=== PATIENT | female | born 1945 | race African-American/Black ===

== ENCOUNTER 2016-08-22 11:32 | Emergency (ER) | payer MEDICARE, MEDICAID ==
--- NOTE | 2016-08-22 11:41 | ER Document Report ---
ED Medical Screen (RME) - General Stated Complaint: EYE REDNESS Notes: presents by EMS for c/o right eye pain that started thursday. denies problems with vision, feels like something is it. Reports sensitive to light, no pain on palpation TRAVEL OUTSIDE OF THE [place] IN LAST 30 DAYS: No - Related Data Allergies/Adverse Reactions: aspirin [Aspirin] Allergy (Verified 06/19/15 16:20) Edema morphine [Morphine] Adverse Reaction (Verified 06/19/15 16:20) Facial swelling Past Medical History - Past Medical History Cardiac Medical History: Reports: Hx Atrial Fibrillation, Hx Heart Attack, Hx Hypercholesterolemia, Hx Hypertension Denies: Hx Congestive Heart Failure Pulmonary Medical History: Reports: Hx Asthma Denies: Hx Bronchitis, Hx COPD, Hx Pneumonia, Hx Tuberculosis Neurological Medical History: Denies: Hx Seizures Endocrine Medical History: Reports: Hx Diabetes Mellitus Type 2, Hx Hypothyroidism. Denies: Hx Diabetes Mellitus Type 1 GI Medical History: Reports: Hx Gastroesophageal Reflux Disease, Hx Ulcer. Denies: Hx Hiatal Hernia Psychiatric Medical History: Reports: Hx Depression Past Surgical History: Reports: Hx Cholecystectomy, Hx Hysterectomy, Hx Orthopedic Surgery. Denies: Hx Pacemaker - Immunizations Immunizations up to date: Yes Hx Diphtheria, Pertussis, Tetanus Vaccination: No
[2016-08-22] MEDS ORDERED: TETRACAINE HCL 0.5% OPH SOLN 2 ML OD ONE (11:42)
--- NOTE | 2016-08-22 13:33 | ER Document Report ---
[id number] EYE REDNESS Notes: The patient is a 71-year-old female, past medical history hypertension, diabetes , presents with 3 days of right eye redness and mild pain. She feels like there is something in her eye. She denies blurry vision, scratching of her eye , trauma, headache or discharge. TRAVEL OUTSIDE OF THE [place] IN LAST 30 DAYS: No - Related Data Allergies/Adverse Reactions: aspirin [Aspirin] Allergy (Verified 08/22/16 11:42) Edema morphine [Morphine] Adverse Reaction (Verified 08/22/16 11:42) Facial swelling Past Medical History - General Information source: Patient - Social History Smoking Status: Never Smoker Chew tobacco use (# tins/day): No Frequency of alcohol use: None Drug Abuse: None Family History: Reviewed & Not Pertinent Patient has suicidal ideation: No Patient has homicidal ideation: No - Past Medical History Cardiac Medical History: Reports: Hx Atrial Fibrillation, Hx Heart Attack, Hx Hypercholesterolemia, Hx Hypertension Denies: Hx Congestive Heart Failure Pulmonary Medical History: Reports: Hx Asthma Denies: Hx Bronchitis, Hx COPD, Hx Pneumonia, Hx Tuberculosis Neurological Medical History: Denies: Hx Seizures Endocrine Medical History: Reports: Hx Diabetes Mellitus Type 2, Hx Hypothyroidism. Denies: Hx Diabetes Mellitus Type 1 Renal/ Medical History: Denies: Hx Peritoneal Dialysis GI Medical History: Reports: Hx Gastroesophageal Reflux Disease, Hx Ulcer. Denies: Hx Hiatal Hernia Psychiatric Medical History: Reports: Hx Depression Past Surgical History: Reports: Hx Cholecystectomy, Hx Hysterectomy, Hx Orthopedic Surgery. Denies: Hx Pacemaker - Immunizations Immunizations up to date: Yes Hx Diphtheria, Pertussis, Tetanus Vaccination: No Hx Pneumococcal Vaccination: 03/11/12 Review of Systems - Review of Systems Notes: REVIEW OF SYSTEMS: CONSTITUTIONAL: -fevers, -chills EENT: +right eye redness, +eye pain, -difficulty swallowing, -nasal congestion CARDIOVASCULAR:-chest pain, -syncope. RESPIRATORY: -cough, -SOB GASTROINTESTINAL: -abdominal pain, - nausea, -vomiting, -diarrhea GENITOURINARY: -dysuria, -hematuria MUSCULOSKELETAL: -back pain, -neck pain SKIN: -rash or skin lesions. HEMATOLOGIC: -easy bruising or bleeding. LYMPHATIC: -swollen, enlarged glands. NEUROLOGICAL: -altered mental status or loss of consciousness, -headache, - neurologic symptoms PSYCHIATRIC: -anxiety, -depression. ALL OTHER SYSTEMS REVIEWED AND NEGATIVE. Physical Exam - Vital signs Vitals: Temp Pulse Resp BP Pulse Ox 98.1 F 82 18 169/81 H 98 08/22/16 11:45 08/22/16 11:45 08/22/16 11:45 08/22/16 11:45 08/22/16 11:45 - Notes Notes: PHYSICAL EXAMINATION: GENERAL: Well-appearing, well-nourished and in no acute distress. HEAD: Atraumatic, normocephalic. EYES: Pupils equal round and reactive to light, extraocular movements intact, red conjunctiva on the right, small abrasion at the 3 clock position of the right cornea, no dendrites, right eye pressure is 17, slit lamp exam shows a small abrasion and no foreign objects. ENT: nares patent, oropharynx clear without exudates. Moist mucous membranes. NECK: Normal range of motion, supple without lymphadenopathy LUNGS: Breath sounds clear to auscultation bilaterally and equal. No wheezes rales or rhonchi. HEART: Regular rate and rhythm without murmurs ABDOMEN: Soft, nontender, normoactive bowel sounds. No guarding, no rebound. No masses appreciated. EXTREMITIES: Normal range of motion, no pitting or edema. No cyanosis. NEUROLOGICAL: Cranial nerves grossly intact. Normal speech, normal gait. Normal sensory, motor, and reflex exams. PSYCH: Normal mood, normal affect. SKIN: Warm, Dry, normal turgor, no rashes or lesions noted. Course - Re-evaluation Re-evalutation: No evidence of acute closed angle glaucoma or foreign body in eye. No vision changes. 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 - Vital Signs Vital signs: Temp Pulse Resp BP Pulse Ox 97.3 F 82 16 190/69 H 99 08/22/16 13:42 08/22/16 13:42 08/22/16 13:42 08/22/16 13:42 08/22/16 13:42 Discharge - Discharge Clinical Impression: Conjunctivitis Qualifiers: Conjunctivitis type: acute Acute conjunctivitis type: unspecified Laterality: right Qualified Code(s): H10.31 - Unspecified acute conjunctivitis, right eye Abrasion of right cornea Qualifiers: Encounter type: initial encounter Qualified Code(s): S05.01XA - Injury of conjunctiva and corneal abrasion without foreign body, right eye, initial encounter Condition: Good Disposition: HOME, SELF-CARE Instructions: Antibiotic Therapy ([facility]) Additional Instructions: Corneal Abrasion You have a corneal abrasion, a scratch on the surface of the eye. The pain of a corneal abrasion feels like a sharp particle in the eye. Usually, antibiotics are placed in the eye to prevent infection. Occasionally, medication will be placed in the eye to dilate the pupil. This is done to relieve some of your discomfort and is only temporary. Pain medication may be required. Don't drive or operate machinery until you have the use of both your eyes. The abrasion usually is healed in one or two days. A follow-up examination to confirm healing is recommended. Call the doctor or return at once if you develop severe pain, decreasing vision, eye swelling, or purulent drainage. Conjunctivitis You have an infection in your eye, commonly known as "pink eye." Conjunctivitis causes redness, mild discomfort, itching, and mattering on the eyelids. It is very contagious, so you must be careful to wash your hands after touching your face so you don't pass the infection on to others. Conjunctivitis is caused by both viruses and bacteria. It usually responds quickly to treatment with antibiotic drops. These should be placed in the eye as prescribed (usually every three to four hours while you're awake). If you wear contact lenses, don't put them in your eyes until the infection is cleared and you are no longer using the drops (unless your doctor advises you otherwise). Should you develop increasing eye pain, severe swelling, decreased vision, or fail to improve as expected, please return for re-examination. Prescriptions: Erythromycin Base [E-Mycin 0.5% Oph Ointment 3.5 gm] 1 applic OD QID #1 tube Referrals: OPHTHAMOLOGY [Provider Group] - Follow up as needed
[2016-08-22 13:54] VITALS: BP 190/69
== END 2016-08-22 13:54 | disposition home or self-care (01) ==
LOC: ER 11:32
DX: S05.01XA Injury of conjunctiva and corneal abrasion without foreign body, right eye, initial encounter (principal); X58.XXXA Exposure to other specified factors, initial encounter; H10.31 Unspecified acute conjunctivitis, right eye; Z88.6 Allergy status to analgesic agent; I25.2 Old myocardial infarction; I10 Essential (primary) hypertension; J45.909 Unspecified asthma, uncomplicated; E11.9 Type 2 diabetes mellitus without complications
CPT/HCPCS: 99283

== ENCOUNTER 2016-09-23 16:13 | Day surgery (SDC) | payer MEDICARE, MEDICAID ==
[~2016-09-23 16:13] MED LIST: EPINEPHRINE INJ 1 MG/10 ML DISP.SYRIN ONE; FENTANYL CITRATE INJ/PF 100 MCG/2 ML AMPUL ONE; FLUMAZENIL INJ 0.5 MG/5 ML VIAL IV ONE; GLUCAGON,HUMAN RECOMB 1 MG INJ ONE; MIDAZOLAM 2 MG/2 ML INJ ONE; NALOXONE HCL INJ/PF 0.4 MG/1 ML SDV ONE; PROMETHAZINE HCL INJ 25 MG/1 ML VIAL ONE
--- NOTE | 2016-09-23 17:41 | Operative Report ---
Operative Report DATE OF SURGERY: 09/23/16 Operative Report: Pre-op diagnosis: Melena and anemia Post-op diagnosis: Mild antral gastritis Surgery: Esophagogastroduodenoscopy with biopsy Medications: Versed 2g Fentanyl 100 mcg IV push Tissue removed: Antral biopsy for pathology Procedure: After informed consent obtained from patient, the throat was sprayed with Hurricane and conscious sedation was achieved. The upper endoscope was inserted into the esophagus under direct vision and advanced into the stomach. The duodenum was entered and examined to the second part. Endoscope was then slowly pulled out of the patient as the mucosa was examined into details. Patient tolerated procedure well. Findings Esophagus: Normal Z-line at: Antrum: Mild erythema Body: Normal Fundus: Normal Duodenum first part: Normal Duodenum second part: Normal Plan: Await pathology. Continue Dexilant OPERATION: .
--- NOTE | 2016-09-23 17:42 | PDOC DISCHARGE SUMMARY ---
Discharge Summary (SDC) - Discharge Final Diagnosis: Antral gastritis Date of Surgery: 09/23/16 Condition: Stable Treatment or Instructions: Continue Dexilant Discharge Diet: As Tolerated Discharge Activity: Activity As Tolerated Report the Following to Your Physician Immediately: Redness, Swelling, Warmth, Large Clots
[2016-09-23 20:01] VITALS: BP 169/66
== END 2016-09-23 20:40 | disposition home or self-care (01) ==
LOC: END 16:13
PROVIDERS: ATTEND Internal Medicine Gastroenterology
PROC: 0DB68ZX Excision of Stomach, Via Natural or Artificial Opening Endoscopic, Diagnostic (ICD-10-PCS; principal; 2016-09-23 16:00)
DX: K29.50 Unspecified chronic gastritis without bleeding (principal); D64.9 Anemia, unspecified; E11.9 Type 2 diabetes mellitus without complications; K21.9 Gastro-esophageal reflux disease without esophagitis; K92.1 Melena; Z88.0 Allergy status to penicillin; Z79.899 Other long term (current) drug therapy
CPT/HCPCS: 43239; 82962; 88342 ×2; 88305 ×2; J2250; J3010; J0171; J1610; J2310; J2550; J3490

== ENCOUNTER 2016-09-30 16:21 | Observation (INO) | payer MEDICARE, MEDICAID ==
[2016-09-30 16:58] LABS: ARTERIAL BLOOD BASE EXCESS -1.8 mmol/L; ARTERIAL BLOOD O2 SATURATION 96.5 % (94-98)
[2016-09-30] MEDS ORDERED: IPRATROPIUM/ALBUTEROL 0.5-2.5 MG/3 ML AMPUL NEB PRN (17:15)
[2016-09-30 17:53] LABS: HEMATOCRIT 32.8 % (36.0-47.0); HEMOGLOBIN 10.8 g/dL (12.0-15.5); HGB HCT DIFFERENCE -0.4; MEAN CORPUSCULAR HEMOGLOBIN 30.9 pg (27.0-33.4); MEAN CORPUSCULAR HGB CONC 32.8 g/dL (32.0-36.0); MEAN CORPUSCULAR VOLUME 94 fl (80-97); RED BLOOD COUNT 3.48 10^6/uL (3.72-5.28); RED CELL DISTRIBUTION WIDTH 14.1 % (11.5-14.0); WHITE BLOOD COUNT 7.7 10^3/uL (4.0-10.5)
[2016-09-30] MEDS ORDERED: ENOXAPARIN SODIUM INJ 40 MG/0.4 ML DISP.SYRIN SUBCUT ONE (18:00)
[2016-09-30 18:16] LABS: ALANINE AMINOTRANSFERASE 30 U/L (9-52); ALBUMIN 3.1 g/dL (3.5-5.0); ALKALINE PHOSPHATASE 148 U/L (38-126); ANION GAP 8 (5-19); ASPARTATE AMINO TRANSFERASE 24 U/L (14-36); BILIRUBIN,TOTAL 0.3 mg/dL (0.2-1.3); BLOOD UREA NITROGEN 32 mg/dL (7-20); CALCIUM 8.9 mg/dL (8.4-10.2); CARBON DIOXIDE 28 mmol/L (22-30); CHLORIDE 105 mmol/L (98-107); CREATININE RESULT 1.75 mg/dL (0.52-1.25); GLUCOSE 163 mg/dL (75-110); SODIUM 141.1 mmol/L (137-145); TOTAL PROTEIN 6.6 g/dL (6.3-8.2)
[2016-09-30] MEDS ORDERED: INFLUENZA ADLT QUAD (36MOS+) 2016-17 VAC 0.5 ML SYR IM PRN (19:23)
[2016-09-30] MEDS ORDERED: DEXTROSE 40% GEL 15 GM TUBE PO PRN (19:51)
[2016-09-30] MEDS ORDERED: DEXTROSE 50%-WATER SYRINGE 12.5 GM/25 ML DOSE IV PRN (19:51)
[2016-09-30] MEDS ORDERED: DEXTROSE 40% GEL 15 GM TUBE X 2 PO PRN (19:51)
[2016-09-30] MEDS ORDERED: DEXTROSE 50%-WATER SYRINGE 25 GM/50 ML DOSE IV PRN (19:51)
[2016-09-30] MEDS ORDERED: INSULIN LISPRO 100 UNIT/ML 3 ML VIAL SUBCUT PRN (19:51)
[2016-09-30] MEDS ORDERED: GLUCAGON,HUMAN RECOMB 1 MG INJ IM PRN (19:51)
[2016-09-30] MEDS ORDERED: CHLORPHENIRAMINE MALEATE 4 MG TABLET PO PRN (19:56)
[2016-09-30] MEDS: DULOXETINE HCL 30 MG CAPSULE.DR PO SCH (21:23)
[2016-09-30] MEDS: LISINOPRIL 10 MG TABLET PO SCH (21:23)
[2016-09-30] MEDS: PREGABALIN 75 MG CAPSULE PO SCH (21:23)
[2016-09-30] MEDS: TOPIRAMATE 100 MG TABLET PO SCH (21:24)
[2016-09-30] MEDS ORDERED: INSULIN GLARGINE,HUM.REC.ANLOG 300 UNIT/3 ML INSULN.PEN SUBCUT SCH (22:00)
[2016-09-30] MEDS ORDERED: (PENDING PHARMACY ID) (Lisinopril [Lisinopril] 40 MG) PO SCH (22:00)
[2016-10-01] MEDS ORDERED: ENOXAPARIN SODIUM INJ 40 MG/0.4 ML DISP.SYRIN SUBCUT SCH (08:00)
[2016-10-01] MEDS ORDERED: HYDROCODONE/ACETAMINOPHEN 5-325 MG TABLET PO PRN (08:21)
[2016-10-01] MEDS: DULOXETINE HCL 30 MG CAPSULE.DR PO SCH (09:26)
[2016-10-01] MEDS: LISINOPRIL 10 MG TABLET PO SCH (09:27)
[2016-10-01] MEDS: TOPIRAMATE 100 MG TABLET PO SCH (09:27)
[2016-10-01] MEDS: PREGABALIN 75 MG CAPSULE PO SCH (09:28)
[2016-10-01] MEDS ORDERED: SITAGLIPTIN PHOSPHATE 50 MG TABLET PO SCH (10:00)
[2016-10-01] MEDS ORDERED: (PENDING PHARMACY ID) (Mirabegron [Myrbetriq] 50 MG) PO SCH (10:00)
[2016-10-01] MEDS ORDERED: LANSOPRAZOLE 30 MG TAB.RAP.DR PO SCH (10:00)
[2016-10-01] MEDS ORDERED: METOPROLOL SUCCINATE 50 MG TAB.SR.24H PO SCH (10:00)
[2016-10-01] MEDS ORDERED: LEVOTHYROXINE SODIUM 0.15 MG TABLET PO SCH (10:00)
[2016-10-01] MEDS ORDERED: ATORVASTATIN CALCIUM 20 MG TABLET PO SCH (10:00)
[2016-10-01] MEDS ORDERED: FUROSEMIDE 40 MG TABLET PO SCH (10:00)
[2016-10-01] MEDS ORDERED: (PENDING PHARMACY ID) (Metoprolol Succinate [Toprol Xl 200 Mg Tablet] 200 MG) PO SCH (10:00)
--- NOTE | 2016-10-01 15:43 | PDOC H&P ---
History of Present Illness Admission Date/PCP: 09/30/16 16:21 BRAD GIVENS MD History of Present Illness: ONDINA ENRIQUEZ is a 71 year old female, she has history of severe morbid obesity with a BMI of 55.9, diabetes mellitus type II complicated with chronic kidney disease stage IV, severe neuropathy from diabetes and history of asthma. She came to the office with shortness of breath, audible wheeze, the pulse oximetry revealed 84% oxygen saturation on room air, she had nebulizer treatment and she was admitted into the hospital for observation and management. The chest x-ray that was done was negative for any acute pathology , a 2-D echo was done as well to measure right pulmonary pressures. The BNP was normal this virtually rule out CHF Past Medical History Cardiac Medical History: Reports: Hyperlipidema, Hypertension Pulmonary Medical History: Reports: Asthma Endocrine Medical History: Reports: Diabetes Mellitus Type 2, Hypothyroidism Renal/ Medical History: Reports: Chronic Kidney Disease GI Medical History: Reports: Gastroesophageal Reflux Disease Musculoskeltal Medical History: Reports: Arthritis Psychiatric Medical History: Reports: Depression Hematology: Reports: Anemia Past Surgical History Past Surgical History: Reports: Cholecystectomy, Hysterectomy, Orthopedic Surgery Social History Information Source: Patient Smoking Status: Never Smoker Frequency of Alcohol Use: None Hx Recreational Drug Use: No Hx Prescription Drug Abuse: No Family History Family History: Reviewed & Not Pertinent Parental Family History Reviewed: Yes Children Family History Reviewed: Yes Sibling(s) Family History Reviewed.: Yes Medication/Allergy Home Medications: Rosuvastatin Calcium [Crestor 10 mg Tablet] 10 mg PO DAILY 03/10/12 Esomeprazole Magnesium [Nexium] 40 mg PO DAILY 02/01/14 Lisinopril/Hydrochlorothiazide [Lisinopril-Hctz 10-12.5 mg Tab] 1 each PO Q12H 02/01/14 Pioglitazone HCl 15 mg PO QAM 02/01/14 Azithromycin [Zithromax 250 mg Tablet] 250 mg PO ASDIR PRN #6 tablet 10/08/14 Guaifenesin 100 mg PO TID #100 ml 10/08/14 Sulfamethoxazole/Trimethoprim [Bactrim Ds Tablet] 1 each PO BID #14 tablet 03/08 Nitrofurantoin/Nitrofuran Mac [Macrobid 100 mg Capsule] 100 mg PO BID #20 capsule 11/10/15 Atorvastatin Calcium [Lipitor 20 mg Tablet] 20 mg PO DAILY 09/30/16 Chlorpheniramine Maleate [Allergy] 4 mg PO Q6HP PRN 09/30/16 Dexlansoprazole [Dexilant 60 mg Capsule] 60 mg PO DAILY 09/30/16 Duloxetine HCl [Cymbalta] 60 mg PO Q12 09/30/16 Furosemide [Furosemide] 40 mg PO DAILY 09/30/16 Insulin Glargine,Hum.rec.anlog [Lantus Insulin 100 Unit/mL] 52 units SQ QHS Levothyroxine Sodium [Synthroid 0.15 mg Tablet] 150 mcg PO DAILY 09/30/16 Lisinopril [Lisinopril] 40 mg PO Q12 09/30/16 Metoprolol Succinate [Toprol XL 200 mg Tablet] 200 mg PO DAILY 09/30/16 Mirabegron [Myrbetriq] 50 mg PO DAILY 09/30/16 Pregabalin [Lyrica] 150 mg PO Q12 09/30/16 Sitagliptin Phosphate [Januvia] 100 mg PO DAILY 09/30/16 Topiramate [Topiramate] 100 mg PO Q12 09/30/16 Allergies/Adverse Reactions: aspirin [Aspirin] Allergy (Verified 09/23/16 16:11) Edema, GI UPSET morphine [Morphine] Allergy (Verified 10/01/16 08:32) ANAPHYLAXSIS, Facial swelling Review of Systems Constitutional: PRESENT: fatigue, weakness Eyes: ABSENT: visual disturbances Ears: ABSENT: hearing changes Cardiovascular: ABSENT: chest pain, dyspnea on exertion, edema, orthropnea, palpitations Respiratory: PRESENT: cough, dyspnea Gastrointestinal: ABSENT: abdominal pain, constipation, diarrhea, hematemesis, hematochezia, nausea, vomiting Genitourinary: ABSENT: dysuria, hematuria Musculoskeletal: ABSENT: joint swelling Integumentary: ABSENT: rash, wounds Neurological: ABSENT: abnormal gait, abnormal speech, confusion, dizziness, focal weakness, syncope Psychiatric: ABSENT: anxiety, depression, homidical ideation, suicidal ideation Endocrine: ABSENT: cold intolerance, heat intolerance, menstrual abnormalities, polydipsia, polyuria Hematologic/Lymphatic: ABSENT: easy bleeding, easy bruising, lymphadenopathy Physical Exam Vital Signs: Temp Pulse Resp BP Pulse Ox 97.9 F 56 L 20 144/73 H 98 10/01/16 12:13 10/01/16 14:00 10/01/16 12:13 10/01/16 12:13 10/01/16 12:13 Intake & Output 09/30/16 10/01/16 10/02/16 06:59 06:59 06:59 Intake Total 280 Balance 280 Weight 157 kg General appearance: PRESENT: severe distress Head exam: PRESENT: atraumatic, normocephalic Eye exam: PRESENT: conjunctiva pink, EOMI, PERRLA Ear exam: PRESENT: normal external ear exam Mouth exam: PRESENT: moist, tongue midline Neck exam: PRESENT: full ROM Respiratory exam: PRESENT: wheezes Cardiovascular exam: PRESENT: RRR, +S1, +S2 GI/Abdominal exam: PRESENT: normal bowel sounds, soft Rectal exam: PRESENT: deferred Neurological exam: PRESENT: alert, awake, oriented to person, oriented to place , oriented to time, oriented to situation, CN II-XII grossly intact Psychiatric exam: PRESENT: appropriate affect, normal mood Skin exam: PRESENT: dry, intact, warm Results Laboratory Results: 09/30/16 17:45 09/30/16 17:45 09/30/16 09/30/16 09/30/16 16:45 17:45 17:45 WBC 7.7 RBC 3.48 L Hgb 10.8 L Hct 32.8 L MCV 94 MCH 30.9 MCHC 32.8 RDW 14.1 H Plt Count 170 Carbonic Acid 1.29 HCO3/H2CO3 Ratio 18:1 ABG pH 7.36 ABG pCO2 43.0 ABG pO2 89.5 ABG HCO3 23.7 ABG O2 Saturation 96.5 ABG Base Excess -1.8 FiO2 ROOM AIR Sodium 141.1 Potassium 4.0 Chloride 105 Carbon Dioxide 28 Anion Gap 8 BUN 32 H Creatinine 1.75 H Est GFR ( Amer) 34 L Est GFR (Non-Af Amer) 28 L Glucose 163 H Calcium 8.9 Total Bilirubin 0.3 AST 24 ALT 30 Alkaline Phosphatase 148 H Total Protein 6.6 Albumin 3.1 L 09/30/16 17:45 NT-Pro-B Natriuret Pep 163 Impressions: Chest X-Ray 09/30/16 00:00 IMPRESSION: NO ACUTE RADIOGRAPHIC FINDING IN THE CHEST. 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
--- NOTE | 2016-10-01 15:56 | XCELERA REPORT ---
[address] [address] Transthoracic Echocardiogram Report Name: ONDINA ENRIQUEZ Age: 71 yrs Gender: Female : 1945 Patient Status: Inpatient Patient Location: 5\S\529\[id number]\A Study Date: 10/01/2016 09:01 AM Height: 66 in Weight: 346 lb BSA: 2.5 m2 Procedure: A two-dimensional transthoracic echocardiogram with color flow and Doppler was performed. The study was technically limited with all images being suboptimal in quality. Reason For Study: CHF History: CHF. Ordering Physician: BRAD GIVENS Performed By: Tati Armstrong Interpretation Summary The left ventricle is normal in size. There is normal left ventricular wall thickness. LV EF is > than 60% Doppler measurements suggest normal left ventricular diastolic function Left ventricular systolic function is normal. The left ventricular wall motion is normal. There is no thrombus. The right ventricle is grossly normal size. The right ventricle is not well visualized secondary to technical limitations The left atrial size is normal. The interatrial septum is intact with no evidence for an atrial septal defect. There is no evidence of mitral valve prolapse. There is no vegetation seen on the mitral valve. There is no mitral valve stenosis. There is no mitral regurgitation noted. There is no aortic valvular vegetation. There is no aortic valve stenosis There is no LVOT obstruction. No aortic regurgitation is present. There is no tricuspid stenosis. There is a trace amount of tricuspid regurgitation RVSP is 42 mm of Hg , with RA mean of 5. There is no pericardial effusion. MMode/2D Measurements \T\ Calculations RVDd: 3.0 cm LVIDd: 4.5 cm FS: 37.6 % Ao root diam: 2.2 cm IVSd: 1.1 cm LVIDs: 2.8 cm EDV(Teich): 90.1 ml LVPWd: 1.1 cm ESV(Teich): 29.0 ml Ao root area: 3.8 cm2 EF(Teich): 67.8 % LA dimension: 3.6 cm Doppler Measurements \T\ Calculations MV E max vinicio: MV P1/2t max vinicio: Ao V2 max: LV V1 max P.3 cm/sec 94.8 cm/sec 151.2 cm/sec 4.2 mmHg MV A max vinicio: MV P1/2t: 73.3 msec Ao max PG: LV V1 max: 94.3 cm/sec 9.1 mmHg 102.7 cm/sec MV E/A: 0.99 MVA(P1/2t): 3.0 cm2 MV dec slope: 378.5 cm/sec2 MV dec time: 0.24 sec PA V2 max: TR max vinicio: 99.7 cm/sec 301.3 cm/sec PA max PG: TR max P.3 mmHg 4.0 mmHg Left Ventricle The left ventricle is normal in size. There is normal left ventricular wall thickness. LV EF is > than 60%. Left ventricular systolic function is normal. Doppler measurements suggest normal left ventricular diastolic function. The left ventricular wall motion is normal. There is no thrombus. There is no ventricular septal defect visualized. Right Ventricle The right ventricle is grossly normal size. The right ventricle is not well visualized secondary to technical limitations. Atria The right atrium is normal. The left atrial size is normal. The interatrial septum is intact with no evidence for an atrial septal defect. Mitral Valve There is no evidence of mitral valve prolapse. There is no vegetation seen on the mitral valve. There is no mitral valve stenosis. There is no mitral regurgitation noted. Aortic Valve There is no aortic valvular vegetation. There is no aortic valve stenosis. There is no LVOT obstruction. No aortic regurgitation is present. Tricuspid Valve There is no tricuspid stenosis. There is a trace amount of tricuspid regurgitation. RVSP is 42 mm of Hg , with RA mean of 5. Pulmonic Valve There is no pulmonic valvular stenosis. There is no pulmonic valvular regurgitation. Great Vessels The aortic root is normal size. Effusions There is no pericardial effusion. : BRAD GIVENS > Melony Clancy
[2016-10-01] MEDS: IPRATROPIUM/ALBUTEROL 0.5-2.5 MG/3 ML AMPUL NEB SCH ×2 (16:08→18:02)
[2016-10-01 16:14] VITALS: BP 170/67
--- NOTE | 2016-10-01 16:41 | PDOC DISCHARGE SUMMARY ---
General - Admit/Disc Date/PCP Admission Date/Primary Care Provider: 09/30/16 16:21 BRAD GIVENS MD Discharge Date: 10/01/16 - Discharge Diagnosis (1) Severe persistent asthma with (acute) exacerbation Is this a current diagnosis for this admission?: Yes (2) Chronic kidney disease, stage 4 (severe) Is this a current diagnosis for this admission?: Yes (3) Type 2 diabetes mellitus with diabetic polyneuropathy Is this a current diagnosis for this admission?: Yes (4) Hypertension Is this a current diagnosis for this admission?: Yes (5) Morbid obesity due to excess calories Is this a current diagnosis for this admission?: Yes - Additional Information Home Medications: Rosuvastatin Calcium [Crestor 10 mg Tablet] 10 mg PO DAILY 03/10/12 Esomeprazole Magnesium [Nexium] 40 mg PO DAILY 02/01/14 Lisinopril/Hydrochlorothiazide [Lisinopril-Hctz 10-12.5 mg Tab] 1 each PO Q12H 02/01/14 Pioglitazone HCl 15 mg PO QAM 02/01/14 Azithromycin [Zithromax 250 mg Tablet] 250 mg PO ASDIR PRN #6 tablet 10/08/14 Guaifenesin 100 mg PO TID #100 ml 10/08/14 Sulfamethoxazole/Trimethoprim [Bactrim Ds Tablet] 1 each PO BID #14 tablet 03/08 Nitrofurantoin/Nitrofuran Mac [Macrobid 100 mg Capsule] 100 mg PO BID #20 capsule 06/19/15 Atorvastatin Calcium [Lipitor 20 mg Tablet] 20 mg PO DAILY 09/30/16 Chlorpheniramine Maleate [Allergy] 4 mg PO Q6HP PRN 09/30/16 Dexlansoprazole [Dexilant 60 mg Capsule] 60 mg PO DAILY 09/30/16 Duloxetine HCl [Cymbalta] 60 mg PO Q12 09/30/16 Furosemide 40 mg PO DAILY 09/30/16 Insulin Glargine,Hum.rec.anlog [Lantus Insulin 100 Unit/mL] 52 units SQ QHS Levothyroxine Sodium [Synthroid 0.15 mg Tablet] 150 mcg PO DAILY 09/30/16 Lisinopril 40 mg PO Q12 09/30/16 Metoprolol Succinate [Toprol XL 200 mg Tablet] 200 mg PO DAILY 09/30/16 Mirabegron [Myrbetriq] 50 mg PO DAILY 09/30/16 Pregabalin [Lyrica] 150 mg PO Q12 09/30/16 Sitagliptin Phosphate [Januvia] 100 mg PO DAILY 09/30/16 Topiramate 100 mg PO Q12 09/30/16 Albuterol Sulfate [Proair HFA] 1 - 2 puff IH Q4 PRN #2 inhaler 10/01/16 Budesonide/Formoterol Fumarate [Symbicort Hfa 160-4.5 Mcg Inhaler 6 gm] 2 puff IH Q12 #1 inhaler 10/01/16 Hydrocodone/Acetaminophen [[place] 10-325 mg Tablet] 1 tab PO Q6H #120 tablet Tiotropium [place] [Spiriva Respimat] 4 gm IH DAILY #1 mist.inhal 10/01/16 History of Present Illness History of Present Illness: ONDINA ENRIQUEZ is a 71 year old female, she has history of severe morbid obesity with a BMI of 55.9, diabetes mellitus type II complicated with chronic kidney disease stage IV, severe neuropathy from diabetes and history of asthma. She came to the office with shortness of breath, audible wheeze, the pulse oximetry revealed 84% oxygen saturation on room air, she had nebulizer treatment and she was admitted into the hospital for observation and management. The chest x-ray that was done was negative for any acute pathology , a 2-D echo was done as well to measure right pulmonary pressures. The BNP was normal this virtually rule out CHF Hospital Course Hospital Course: Patient was admitted because of severe persistent asthma with acute exacerbation. She was treated with bronchodilators with very good result, she' s been discharge home on inhaled steroids and bronchodilators. Physical Exam Vital Signs: Temp Pulse Resp BP Pulse Ox 97.9 F 56 L 20 170/67 H 98 10/01/16 16:10 10/01/16 16:10 10/01/16 16:10 10/01/16 16:10 10/01/16 16:10 Intake & Output 09/30/16 10/01/16 10/02/16 06:59 06:59 06:59 Intake Total 280 Balance 280 Weight 157 kg General appearance: PRESENT: no acute distress Eye exam: PRESENT: PERRLA Respiratory exam: PRESENT: clear to auscultation carter Cardiovascular exam: PRESENT: +S1, +S2 Results Laboratory Results: 09/30/16 17:45 09/30/16 17:45 09/30/16 09/30/16 09/30/16 16:45 17:45 17:45 WBC 7.7 RBC 3.48 L Hgb 10.8 L Hct 32.8 L MCV 94 MCH 30.9 MCHC 32.8 RDW 14.1 H Plt Count 170 Carbonic Acid 1.29 HCO3/H2CO3 Ratio 18:1 ABG pH 7.36 ABG pCO2 43.0 ABG pO2 89.5 ABG HCO3 23.7 ABG O2 Saturation 96.5 ABG Base Excess -1.8 FiO2 ROOM AIR Sodium 141.1 Potassium 4.0 Chloride 105 Carbon Dioxide 28 Anion Gap 8 BUN 32 H Creatinine 1.75 H Est GFR ( Amer) 34 L Est GFR (Non-Af Amer) 28 L Glucose 163 H Calcium 8.9 Total Bilirubin 0.3 AST 24 ALT 30 Alkaline Phosphatase 148 H Total Protein 6.6 Albumin 3.1 L 09/30/16 17:45 NT-Pro-B Natriuret Pep 163 Impressions: Chest X-Ray 09/30/16 00:00 IMPRESSION: NO ACUTE RADIOGRAPHIC FINDING IN THE CHEST.
== END 2016-10-01 18:06 | disposition home or self-care (01) ==
LOC: 5 16:21
PROVIDERS: ADMIT Internal Medicine; ATTEND Internal Medicine
PROC: 3E0234Z Introduction of Serum, Toxoid and Vaccine into Muscle, Percutaneous Approach (ICD-10-PCS; principal; 2016-09-30)
DX: J45.51 Severe persistent asthma with (acute) exacerbation (principal); I12.9 Hypertensive chronic kidney disease with stage 1 through stage 4 chronic kidney disease, or unspecified chronic kidney disease; N18.4 Chronic kidney disease, stage 4 (severe); E11.22 Type 2 diabetes mellitus with diabetic chronic kidney disease; E11.42 Type 2 diabetes mellitus with diabetic polyneuropathy; E66.01 Morbid (severe) obesity due to excess calories; Z68.43 Body mass index [BMI] 50.0-59.9, adult; Z79.4 Long term (current) use of insulin; E78.5 Hyperlipidemia, unspecified; E03.9 Hypothyroidism, unspecified; K21.9 Gastro-esophageal reflux disease without esophagitis; F32.9 Major depressive disorder, single episode, unspecified; Z23 Encounter for immunization
CPT/HCPCS: 90471; 36415; 82962 ×2; 82803; 85027; 80076; 80048; 83036; 85379; 83880; 93306; 71010; 90686; 36600; G0008; G0378 ×3; A9270 ×17; J1650 ×2; J1815; J3490

== ENCOUNTER → 2016-11-25 | Outpatient (CLI) | payer MEDICARE, MEDICAID | LOC: RAD 15:18 | PROVIDERS: ATTEND Internal Medicine Medical Oncology | DX: D47.2 Monoclonal gammopathy (principal) | CPT/HCPCS: 77075 ==

== ENCOUNTER → 2016-12-23 | Outpatient (CLI) | payer MEDICARE, MEDICAID | LOC: WI 12:21 | PROVIDERS: ATTEND Internal Medicine | DX: Z12.31 Encounter for screening mammogram for malignant neoplasm of breast (principal) | CPT/HCPCS: G0279; G0204; 77062; 77066 ==

== ENCOUNTER 2017-02-16 11:25 | Inpatient (IN) | payer MEDICARE, MEDICAID ==
--- NOTE | 2017-02-16 11:49 | RADIOLOGY REPORT (SQ) ---
EXAM DESCRIPTION: CT HEAD WITHOUT COMPLETED DATE/TIME: 02/16/2017 11:38 am REASON FOR STUDY: bed 9 sroke alert COMPARISON: 07/18/2015 TECHNIQUE: Axial images acquired through the brain without intravenous contrast. Images reviewed wi th bone, brain and subdural windows. Images stored on PACS. All CT scanners at this facility use dose modulation, iterative reconstruction, and/or weight based d osing when appropriate to reduce radiation dose to as low as reasonably achievable (ALARA). [facility]: Dose Right [facility]: CareDose [facility]: Dose Right [facility]: Teradose 4D [facility]: Smart hovelstay RADIATION DOSE: Up-to-date CT equipment and radiation dose reduction techniques were employed. CTDIv ol: 64.6 mGy. DLP: 1034 mGy-cm. mGy. LIMITATIONS: Motion FINDINGS: VENTRICLES: Normal size and contour. CEREBRUM: No masses. No hemorrhage. No midline shift. Normal briceno/white matter differentiation. N o evidence for acute infarction. CEREBELLUM: No masses. No hemorrhage. No alteration of density. No evidence for acute infarction. EXTRAAXIAL SPACES: No fluid collections. No masses. ORBITS AND GLOBE: No intra- or extraconal masses. Normal contour of globe without masses. CALVARIUM: No fracture. PARANASAL SINUSES: No fluid or mucosal thickening. SOFT TISSUES: No mass or hematoma. OTHER: No other significant finding. IMPRESSION: NORMAL BRAIN CT WITHOUT CONTRAST. COMMENT: Pertinent positive or negative findings of the imaging study reported as a CRITICAL EXAM t o ER PROVIDER at11:42 on 02/16/2017. Category of Critical Exam: Stroke alert TECHNICAL DOCUMENTATION: JOB ID: [id number] Quality ID # [id number]: Final reports with documentation of one or more dose reduction techniques (e.g., Au tomated exposure control, adjustment of the mA and/or kV according to patient size, use of iterative reconstruction technique) 2010 [employer]- All Rights Reserved
[2017-02-16] MEDS ORDERED: NALOXONE HCL INJ/PF 0.4 MG/1 ML SDV ONE (11:56)
--- NOTE | 2017-02-16 12:20 | ER Document Report ---
ED General - General Stated Complaint: SLURRED SPEECH Time Seen by Provider: 02/16/17 11:57 Information source: Patient Notes: Patient is a 71-year-old female who presents today by EMS after the home health nurse came to her home and noticed that she was "altered" with slurred speech. Patient was sitting on the toilet. EMS, home health, and the patient do not know when the patient was last normal. Patient states for 2 weeks he has felt some mild bilateral leg weakness. Today she noted some blood in her stool. She has also noticed some possible decreased urination and feeling dizzy. She denies any headache, neck pain, or chest pain. She states some mild intermittent epigastric nonradiating pain. Patient states that she has some lower back pain that is chronic and unchanged. Patient does state that she has pain medications at home. Patient denies any vomiting or fevers. TRAVEL OUTSIDE OF THE [place] IN LAST 30 DAYS: No - HPI Onset: Other - See above Severity: Mild Pain Level: 0 Associated symptoms: Other - See above Similar symptoms previously: No Recently seen / treated by doctor: Yes - Related Data Allergies/Adverse Reactions: aspirin [Aspirin] Allergy (Verified 09/23/16 16:11) Edema, GI UPSET morphine [Morphine] Allergy (Verified 10/01/16 08:32) ANAPHYLAXSIS, Facial swelling Past Medical History - General Information source: Patient - Social History Smoking Status: Unknown if Ever Smoked Cigarette use (# per day): No Chew tobacco use (# tins/day): No Smoking Education Provided: No Drug Abuse: None Family History: Reviewed & Not Pertinent - Past Medical History Cardiac Medical History: Reports: Hx Hypercholesterolemia, Hx Hypertension Pulmonary Medical History: Reports: Hx Asthma Neurological Medical History: Denies: Hx Cerebrovascular Accident Endocrine Medical History: Reports: Hx Diabetes Mellitus Type 2, Hx Hypothyroidism Renal/ Medical History: Denies: Hx Peritoneal Dialysis GI Medical History: Reports: Hx Gastroesophageal Reflux Disease, Hx Ulcer Musculoskeltal Medical History: Reports Hx Arthritis Psychiatric Medical History: Reports: Hx Depression Past Surgical History: Reports: Hx Cholecystectomy, Hx Hysterectomy, Hx Orthopedic Surgery. Denies: Hx Pacemaker - Immunizations Immunizations up to date: Yes Hx Diphtheria, Pertussis, Tetanus Vaccination: No Hx Pneumococcal Vaccination: 03/11/12 Review of Systems - Review of Systems Constitutional: denies: Fever EENT: denies: Eye discharge, Nose discharge Cardiovascular: denies: Chest pain, Palpitations Respiratory: denies: Hurts to breathe, Short of breath Gastrointestinal: denies: Vomiting Musculoskeletal: denies: Leg swelling Skin: Other - no hives. denies: Rash Neurological/Psychological: Other - no slurred speech -: Yes All other systems reviewed and negative Physical Exam - Vital signs Vitals: Pulse Ox 98 02/16/17 11:31 Notes: Reviewed vital signs and nursing note as charted by RN. CONSTITUTIONAL: Alert and easily arousable but drowsy. HEAD: Normocephalic; atraumatic EYES: PERRL, sclerae non-icteric ENT: Normal nose; no rhinorrhea; moist mucous membranes; pharynx without lesions noted NECK: Supple without meningismus; non-tender; no cervical lymphadenopathy, no masses CARD: Regular rate and rhythm; no murmurs, no clicks, no rubs, no gallops; symmetric distal pulses RESP: Normal chest excursion without splinting or tachypnea; breath sounds clear and equal bilaterally; no wheezes, no rhonchi, no rales ABD/GI: Normal bowel sounds; non-distended; soft, very mildly tender to the epigastric region, no rebound, no guarding; very elevated BMI BACK: The back appears normal and is non-tender to palpation with logrolling. There is no induration, erythema, or fluctuance to the midline spine GI/: Patient has no perianal or perirectal lesions. EXT: Normal ROM in all joints; non-tender to palpation; no cyanosis, no effusions, no edema SKIN: Normal color for age and race; warm; dry; good turgor; capillary refill < 2 seconds; no acute lesions noted NEURO: CN II through XII are intact. Patient has 5 out of 5 bilateral upper extremity strength and lower extremity plantar flexion and extension of the feet PSYCH: The patient's mood and manner are appropriate. Grooming and personal hygiene are appropriate Course - Re-evaluation Re-evalutation: 02/16/17 12:20 Given the above history and physical examination with the unknown onset of symptoms, with no focal neurological deficits at this time, I do not believe that the patient is a TPA candidate Given that the patient takes narcotic medications and is slightly drowsy above what I would consider a baseline level, I will provide a small dose of Narcan. I will also obtain a CT scan of the head, x-ray of the chest, abdominal labs, EKG, troponin, catheterized urinalysis, and occult blood to check for possible anemia, VA, or other possible electrolyte abnormality. 02/16/17 13:18 No change in neurologic exam. Labs as recorded. Patient appears to be in acute renal failure. I provided a liter of fluid as well as a amp of calcium gluconate. 02/16/17 13:39 EKG shows a heart rate of 73, normal sinus rhythm, normal axis, no obvious ST elevation or depression. Poor R-wave progression. 02/16/17 14:57 Urinalysis as recorded. Urine culture has been sent. - Vital Signs Vital signs: Temp Pulse Resp BP Pulse Ox 97.4 F 86 10 L 143/67 H 100 02/16/17 11:55 02/16/17 11:55 02/16/17 14:01 02/16/17 14:01 02/16/17 14:01 - Laboratory Result Diagrams: 02/16/17 12:22 02/16/17 12:22 Laboratory results interpreted by me: 02/16/17 02/16/17 02/16/17 12:22 12:22 12:22 RBC 3.44 L Hgb 10.3 L Hct 32.9 L MCHC 31.3 L RDW 15.3 H Lymphocytes % 11.6 L Sodium 146.0 H Potassium 5.7 H Chloride 110 H BUN 90 H Creatinine 4.33 H Est GFR ( Amer) 12 L Est GFR (Non-Af Amer) 10 L Glucose 45 L Direct Bilirubin 0.5 H Creatine Kinase 628 H CK-MB (CK-2) 5.43 H Ur Leukocyte Esterase Urine Ascorbic Acid 02/16/17 13:50 RBC Hgb Hct MCHC RDW Lymphocytes % Sodium Potassium Chloride BUN Creatinine Est GFR ( Amer) Est GFR (Non-Af Amer) Glucose Direct Bilirubin Creatine Kinase CK-MB (CK-2) Ur Leukocyte Esterase LARGE H Urine Ascorbic Acid 40 H Critical Care Note - Critical Care Note Total time excluding time spent on procedures (mins): 35 Discharge - Discharge Clinical Impression: Acute renal failure Qualifiers: Acute renal failure type: unspecified Qualified Code(s): N17.9 - Acute kidney failure, unspecified Altered mental status Qualifiers: Altered mental status type: unspecified Qualified Code(s): R41.82 - Altered mental status, unspecified Urinary tract infection Qualifiers: Urinary tract infection type: site unspecified Hematuria presence: without hematuria Qualified Code(s): N39.0 - Urinary tract infection, site not specified Condition: Serious Disposition: ADMITTED INPATIENT Admitting Provider: Kasi Unit Admitted: [facility]
[2017-02-16] MEDS ORDERED: NALOXONE HCL INJ/PF 0.4 MG/1 ML SDV IV ONE (12:25)
[2017-02-16 12:41] LABS: ABSOLUTE BASOPHILS # (AUTO) 0.1 10^3/uL (0.0-0.2); ABSOLUTE EOSINOPHILS # (AUTO) 0.1 10^3/uL (0.0-0.6); ABSOLUTE LYMPHOCYTES (AUTO) 0.8 10^3/uL (0.5-4.7); ABSOLUTE MONOCYTES (AUTO) 0.7 10^3/uL (0.1-1.4); ABSOLUTE NEUT (AUTO) 5.2 10^3/uL (1.7-8.2); BASOPHILS % (AUTO) 0.8 % (0-2); EOSINOPHILS % (AUTO) 1.2 % (0-6); HEMATOCRIT 32.9 % (36.0-47.0); HEMOGLOBIN 10.3 g/dL (12.0-15.5); LYMPHOCYTES % (AUTO) 11.6 % (13-45); MEAN CORPUSCULAR HEMOGLOBIN 29.9 pg (27.0-33.4); MEAN CORPUSCULAR HGB CONC 31.3 g/dL (32.0-36.0); MEAN CORPUSCULAR VOLUME 96 fl (80-97); MONOCYTES % (AUTO) 10.3 % (3-13); PARTIAL THROMBOPLASTIN TIME 32.6 SEC (23.5-35.8); RED BLOOD COUNT 3.44 10^6/uL (3.72-5.28); RED CELL DISTRIBUTION WIDTH 15.3 % (11.5-14.0); SEGMENTED NEUTROPHILS % (AUTO) 76.1 % (42-78); WHITE BLOOD COUNT 6.8 10^3/uL (4.0-10.5)
[2017-02-16 12:44] LABS: PROTHROMBIN TIME 14.6 SEC (11.4-15.4)
[2017-02-16 13:04] LABS: ALANINE AMINOTRANSFERASE 25 U/L (9-52); ALBUMIN 3.9 g/dL (3.5-5.0); ALKALINE PHOSPHATASE 122 U/L (38-126); ANION GAP 14 (5-19); ASPARTATE AMINO TRANSFERASE 36 U/L (14-36); BILIRUBIN,DIRECT 0.5 mg/dL (0.0-0.4); BILIRUBIN,TOTAL 0.5 mg/dL (0.2-1.3); BLOOD UREA NITROGEN 90 mg/dL (7-20); CALCIUM 8.7 mg/dL (8.4-10.2); CARBON DIOXIDE 22 mmol/L (22-30); CHLORIDE 110 mmol/L (98-107); CREATINE KINASE 628 U/L (30-135); CREATININE RESULT 4.33 mg/dL (0.52-1.25); GLUCOSE 45 mg/dL (75-110); LIPASE 53.7 U/L (23-300); POTASSIUM 5.7 mmol/L (3.6-5.0); TOTAL PROTEIN 7.8 g/dL (6.3-8.2)
[2017-02-16 13:16] LABS: CREATINE KINASE MB 5.43 ng/mL (<4.55)
[2017-02-16] MEDS ORDERED: NORMAL SALINE 1000 ML 1,000 ML IV ONE (13:17)
[2017-02-16] MEDS ORDERED: CALCIUM GLUCONATE 1000 MG/10 ML INJ IV ONE (13:18)
[2017-02-16 13:19] LABS: TROPONIN I < 0.012 ng/mL
--- NOTE | 2017-02-16 13:22 | RADIOLOGY REPORT (SQ) ---
EXAM DESCRIPTION: CHEST SINGLE VIEW COMPLETED DATE/TIME: 02/16/2017 1:10 pm REASON FOR STUDY: bed 9 stroke alert COMPARISON: 09/30/2016. EXAM PARAMETERS: NUMBER OF VIEWS: One view. TECHNIQUE: Single frontal radiographic view of the chest acquired. RADIATION DOSE: NA LIMITATIONS: None. FINDINGS: LUNGS AND PLEURA: No opacities, masses or pneumothorax. No pleural effusion. MEDIASTINUM AND HILAR STRUCTURES: No masses. Contour normal. HEART AND VASCULAR STRUCTURES: Heart normal in size. Normal vasculature. BONES: No acute findings. HARDWARE: None in the chest. OTHER: No other significant finding. IMPRESSION: NO ACUTE RADIOGRAPHIC FINDING IN THE CHEST. TECHNICAL DOCUMENTATION: JOB ID: [id number]
[2017-02-16 14:14] LABS: APPEARANCE,URINE CLOUDY; BILIRUBIN,URINE NEGATIVE (NEGATIVE); GLUCOSE, URINE NEGATIVE (NEGATIVE); KETONES,URINE NEGATIVE (NEGATIVE); LEUKOCYTE ESTERASE,URINE LARGE (NEGATIVE); NITRITE,URINE NEGATIVE (NEGATIVE); PROTEIN,URINE NEGATIVE (NEGATIVE); URINE SPECIFIC GRAVITY 1.009; UROBILINOGEN,URINE NEGATIVE mg/dL (<2.0)
[2017-02-16] MEDS ORDERED: CEFTRIAXONE INJ 1000 MG VIAL IV ONE (14:56)
[2017-02-16 19:17] LABS: THYROID STIMULATING HORMONE 1.16 uIU/mL (0.47-4.68)
[2017-02-16 19:44] LABS: PARTIAL THROMBOPLASTIN TIME 31.1 SEC (23.5-35.8); PROTHROMBIN TIME 14.5 SEC (11.4-15.4)
[2017-02-16 19:49] LABS: URINE BARBITURATES SCREEN NEGATIVE; URINE METHADONE SCREEN NEGATIVE; URINE OPIATES LOW NEGATIVE; URINE PHENCYCLIDINE SCREEN NEGATIVE
[2017-02-16 19:50] LABS: LIPASE 69.9 U/L (23-300); MAGNESIUM 2.1 mg/dL (1.6-2.3)
[2017-02-16 20:03] LABS: CREATINE KINASE MB 4.82 ng/mL (<4.55); TROPONIN I < 0.012 ng/mL
--- NOTE | 2017-02-16 21:04 | EKG REPORT ---
SEVERITY:- ABNORMAL ECG - SINUS RHYTHM BORDERLINE LEFT AXIS DEVIATION CONSIDER ANTEROSEPTAL INFARCT : Confirmed by: Matthew Thomas MD 16-Feb-2017 21:03:38
[2017-02-16] MEDS: NORMAL SALINE 1000 ML 1,000 ML IV PRN (22:33)
[2017-02-16] MEDS: HEPARIN SOD (PORCINE) 5,000 UNIT/ML 1 ML SYRINGE SUBCUT SCH (22:34)
[2017-02-16] MEDS ORDERED: CEFTRIAXONE 1 GM/D5W RTU 1 GM/50 ML RTUPB IV ONE (23:29)
[2017-02-17 01:42] LABS: CREATINE KINASE MB 4.25 ng/mL (<4.55)
[2017-02-17 01:48] LABS: TROPONIN I < 0.012 ng/mL
[2017-02-17] MEDS: HEPARIN SOD (PORCINE) 5,000 UNIT/ML 1 ML SYRINGE SUBCUT SCH ×3 (07:01→21:14)
[2017-02-17 07:15] LABS: ABSOLUTE EOSINOPHILS # (AUTO) 0.2 10^3/uL (0.0-0.6); ABSOLUTE LYMPHOCYTES (AUTO) 0.6 10^3/uL (0.5-4.7); ABSOLUTE MONOCYTES (AUTO) 0.5 10^3/uL (0.1-1.4); ABSOLUTE NEUT (AUTO) 3.8 10^3/uL (1.7-8.2); BASOPHILS % (AUTO) 0.5 % (0-2); EOSINOPHILS % (AUTO) 4.4 % (0-6); HEMATOCRIT 32.3 % (36.0-47.0); HEMOGLOBIN 10.3 g/dL (12.0-15.5); HGB HCT DIFFERENCE -1.4; LYMPHOCYTES % (AUTO) 11.5 % (13-45); MEAN CORPUSCULAR HEMOGLOBIN 30.6 pg (27.0-33.4); MEAN CORPUSCULAR HGB CONC 31.9 g/dL (32.0-36.0); MEAN CORPUSCULAR VOLUME 96 fl (80-97); MONOCYTES % (AUTO) 10.4 % (3-13); RED BLOOD COUNT 3.37 10^6/uL (3.72-5.28); RED CELL DISTRIBUTION WIDTH 15.1 % (11.5-14.0); SEGMENTED NEUTROPHILS % (AUTO) 73.2 % (42-78); WHITE BLOOD COUNT 5.2 10^3/uL (4.0-10.5)
[2017-02-17 07:26] LABS: ALANINE AMINOTRANSFERASE 27 U/L (9-52); ALBUMIN 3.1 g/dL (3.5-5.0); ALKALINE PHOSPHATASE 106 U/L (38-126); ANION GAP 10 (5-19); ASPARTATE AMINO TRANSFERASE 28 U/L (14-36); BILIRUBIN,DIRECT 0.4 mg/dL (0.0-0.4); BILIRUBIN,TOTAL 0.4 mg/dL (0.2-1.3); BLOOD UREA NITROGEN 79 mg/dL (7-20); CALCIUM 8.5 mg/dL (8.4-10.2); CARBON DIOXIDE 20 mmol/L (22-30); CHLORIDE 116 mmol/L (98-107); CREATININE RESULT 2.75 mg/dL (0.52-1.25); Direct HDL 40 mg/dL (>40); GLUCOSE 77 mg/dL (75-110); POTASSIUM 5.1 mmol/L (3.6-5.0); SODIUM 146.3 mmol/L (137-145); TOTAL PROTEIN 6.2 g/dL (6.3-8.2); TRIGLYCERIDES 99 mg/dL (<150)
[2017-02-17 07:36] LABS: CREATINE KINASE MB 3.82 ng/mL (<4.55); DIRECT LDL 42 mg/dL (<100)
[2017-02-17 07:38] LABS: TROPONIN I < 0.012 ng/mL
[2017-02-17] MEDS ORDERED: DEXTROSE 40% GEL 15 GM TUBE PO PRN ×2 (08:26)
[2017-02-17] MEDS ORDERED: GLUCAGON,HUMAN RECOMB 1 MG INJ IM PRN (08:26)
[2017-02-17] MEDS ORDERED: DEXTROSE 50%-WATER 25 GM/50 ML DISP.SYRIN IV PRN ×2 (08:26)
[2017-02-17] MEDS: NORMAL SALINE 1000 ML 1,000 ML IV PRN ×2 (10:01→21:18)
[2017-02-17] MEDS: HYDROCODONE/ACETAMINOPHEN 5-325 MG TABLET PO PRN ×2 (11:56→21:10)
--- NOTE | 2017-02-17 15:54 | Physician Advisory Note ---
Physician Advisor ProgressNote .: [facility], I have reviewed the medical record for this patient. Physician Advisor Statement: Please consider documentin. "ARF, likely due to " (or "Acute Kidney Injury" - NOT "insufficiency") - baseline Cr in mid-1's. 2. "Acute hypernatremia, likely due to ____" 3. ? - "Acute metabolic acidosis, likely due to ____" 4. "obesity w/BMI 54.7" Status: 71yo w/HTN, HLD, asthma, DM-2, hypothyroid, GERD, ulcer, depression, presented 7/10 AM after HHNurse found her w/AMS & slurred speech, BLE weakness, feeling dizzy w/nonspecific sx. In ED, pt drowsy but alert, with depressed respirations (first 14, then RR 10-11, then mostly RR 8-11 x hours) - & tried Narcan but without improvement in mental status. Pt w/nl WBC, but hypernatremia , hyperkalemia, ARF (Cr up to 4's from baseline 1's), hypoglycemia of 45, (+)U/ A. ED ordered IVF x1L, 1amp Ca gluconate, IV Rocephin. Attg ordered continued IVF @100, IV Rocephin, I/Os, daily wts, f/u labs. After 1MN of hospital care & monitoring, pt still acutely hypernatremic, w/ improved but continued KARL/ARF that is significantly worse than baseline. Ur cx growing GNR. Not clinically stable for d/c. Appropriate for Inpt status. CK
--- NOTE | 2017-02-17 17:03 | PDOC H&P ---
History of Present Illness Admission Date/PCP: 02/16/17 17:54 BRAD GIVENS MD History of Present Illness: ONDINA ENRIQUEZ is a 71 year old female, she was transferred from home by EMS to the emergency room for evaluation of altered mental status. She was found in her residence sitting on the toilet,incoherent, confused, she was transferred to the emergency room for further evaluation. In the emergency room she was examined and evaluated ,CAT scan of the head was done it was negative for any acute pathology. The blood work that was done showed electrolyte ,acid-base derangement, the sodium 146, potassium 5.7, BUN is 90, creatinine is 4.3. She has history of chronic kidney disease stage III , baseline creatinine is 1.8.,clearly there is acute kidney injury on a superimposed chronic kidney disease. The urinalysis showed bacteriuria, pyuria that suggest UTI. I spoke to the patient after she was seen and evaluated in the emergency room, she stated that she felt sick, she went to the bathroom to use the toilet, she said she passed blood in her stool that is when she got scared and that was the last she remembered Past Medical History Cardiac Medical History: Reports: Hyperlipidema, Hypertension Pulmonary Medical History: Reports: Asthma Endocrine Medical History: Reports: Diabetes Mellitus Type 2, Hypothyroidism, Obesity GI Medical History: Reports: Gastroesophageal Reflux Disease Musculoskeltal Medical History: Reports: Arthritis Psychiatric Medical History: Reports: Depression Hematology: Reports: Anemia Past Surgical History Past Surgical History: Reports: Cholecystectomy, Hysterectomy, Orthopedic Surgery Social History Smoking Status: Never Smoker Frequency of Alcohol Use: None Hx Recreational Drug Use: No Drugs: None Hx Prescription Drug Abuse: No - Advance Directive Resuscitation Status: Full Code Family History Family History: Reviewed & Not Pertinent Parental Family History Reviewed: Yes Children Family History Reviewed: Yes Sibling(s) Family History Reviewed.: Yes Medication/Allergy Home Medications: Rosuvastatin Calcium [Crestor 10 mg Tablet] 10 mg PO DAILY 03/10/12 Esomeprazole Magnesium [Nexium] 40 mg PO DAILY 02/01/14 Lisinopril/Hydrochlorothiazide [Lisinopril-Hctz 10-12.5 mg Tab] 1 each PO Q12H 02/01/14 Pioglitazone HCl 15 mg PO QAM 02/01/14 Azithromycin [Zithromax 250 mg Tablet] 250 mg PO ASDIR PRN #6 tablet 10/08/14 Guaifenesin 100 mg PO TID #100 ml 10/08/14 Sulfamethoxazole/Trimethoprim [Bactrim Ds Tablet] 1 each PO BID #14 tablet 03/08 Nitrofurantoin/Nitrofuran Mac [Macrobid 100 mg Capsule] 100 mg PO BID #20 capsule 06/19/15 Albuterol Sulfate [Ventolin Hfa] 1 puff IH Q4HP PRN 02/16/17 Amlodipine Besylate [Norvasc 5 mg Tablet] 5 mg PO DAILY 02/16/17 Atorvastatin Calcium [Lipitor 20 mg Tablet] 20 mg PO DAILY 02/16/17 Dexlansoprazole [Dexilant 60 mg Capsule] 60 mg PO DAILY 02/16/17 Doxepin HCl 75 mg PO QHS 02/16/17 Duloxetine HCl [Cymbalta] 60 mg PO BID 02/16/17 Ergocalciferol (Vitamin D2) [Vitamin D2] 50,000 units PO MO@1000 02/16/17 Furosemide [Lasix] 40 mg PO DAILY 02/16/17 Insulin Glargine,Hum.rec.anlog [Lantus Solostar] 52 units SQ QHS 02/16/17 Levothyroxine Sodium [Synthroid] 150 mcg PO DAILY 02/16/17 Lisinopril [Zestril] 40 mg PO BID 02/16/17 Metoprolol Succinate [Toprol XL 200 mg Tablet] 200 mg PO DAILY 02/16/17 Mirabegron [Myrbetriq] 50 mg PO DAILY 02/16/17 Montelukast Sodium [Singulair 10 mg Tablet] 10 mg PO QPM 02/16/17 Pregabalin [Lyrica] 150 mg PO BID 02/16/17 Sitagliptin Phosphate [Januvia] 100 mg PO DAILY 02/16/17 Tiotropium Sanders [Spiriva Respimat] 1 puff IH DAILY 02/16/17 Topiramate [Topamax 100 mg Tablet] 100 mg PO BID 02/16/17 Allergies/Adverse Reactions: aspirin [Aspirin] Allergy (Verified 09/23/16 16:11) Edema, GI UPSET morphine [Morphine] Allergy (Verified 10/01/16 08:32) ANAPHYLAXSIS, Facial swelling Review of Systems Constitutional: PRESENT: fatigue, weakness Eyes: ABSENT: visual disturbances Ears: ABSENT: hearing changes Cardiovascular: ABSENT: chest pain, dyspnea on exertion, edema, orthropnea, palpitations Respiratory: ABSENT: cough, hemoptysis Gastrointestinal: PRESENT: hematochezia, nausea Genitourinary: ABSENT: dysuria, hematuria Musculoskeletal: PRESENT: back pain, muscle weakness Integumentary: ABSENT: rash, wounds Neurological: PRESENT: confusion Psychiatric: PRESENT: depression Hematologic/Lymphatic: ABSENT: easy bleeding, easy bruising, lymphadenopathy Physical Exam Vital Signs: Temp Pulse Resp BP Pulse Ox 97.7 F 80 20 147/63 H 100 02/17/17 11:32 02/17/17 14:00 02/17/17 11:32 02/17/17 11:32 02/17/17 11:32 Intake & Output 02/16/17 02/17/17 02/18/17 06:59 06:59 06:59 Intake Total 775 932 Output Total 1500 1400 Balance -725 -468 Weight 158.3 kg General appearance: PRESENT: mild distress Head exam: PRESENT: atraumatic, normocephalic Eye exam: PRESENT: conjunctiva pale Mouth exam: PRESENT: moist, tongue midline Neck exam: PRESENT: full ROM Respiratory exam: PRESENT: rhonchi Cardiovascular exam: PRESENT: RRR, +S1, +S2 Vascular exam: PRESENT: normal capillary refill GI/Abdominal exam: PRESENT: normal bowel sounds, soft, other - obese Rectal exam: PRESENT: deferred Neurological exam: PRESENT: altered. ABSENT: motor sensory deficit Skin exam: PRESENT: dry, intact, warm. ABSENT: cyanosis, rash Results Laboratory Results: 02/17/17 06:49 02/17/17 06:49 02/16/17 02/16/17 02/17/17 19:20 19:20 06:49 WBC 5.2 RBC 3.37 L Hgb 10.3 L Hct 32.3 L MCV 96 MCH 30.6 MCHC 31.9 L RDW 15.1 H Plt Count 137 L Seg Neutrophils % 73.2 Lymphocytes % 11.5 L Monocytes % 10.4 Eosinophils % 4.4 Basophils % 0.5 Absolute Neutrophils 3.8 Absolute Lymphocytes 0.6 Absolute Monocytes 0.5 Absolute Eosinophils 0.2 Absolute Basophils 0.0 Sodium Potassium Chloride Carbon Dioxide Anion Gap BUN Creatinine Est GFR ( Amer) Est GFR (Non-Af Amer) Glucose Calcium Phosphorus 7.0 H Magnesium 2.1 Total Bilirubin AST ALT Alkaline Phosphatase Ammonia < 8.7 L Total Protein Albumin Triglycerides Cholesterol LDL Cholesterol Direct VLDL Cholesterol HDL Cholesterol Amylase 34 Lipase 69.9 02/17/17 06:49 WBC RBC Hgb Hct MCV MCH MCHC RDW Plt Count Seg Neutrophils % Lymphocytes % Monocytes % Eosinophils % Basophils % Absolute Neutrophils Absolute Lymphocytes Absolute Monocytes Absolute Eosinophils Absolute Basophils Sodium 146.3 H Potassium 5.1 H Chloride 116 H Carbon Dioxide 20 L Anion Gap 10 BUN 79 H Creatinine 2.75 H Est GFR ( Amer) 20 L Est GFR (Non-Af Amer) 17 L Glucose 77 Calcium 8.5 Phosphorus Magnesium Total Bilirubin 0.4 AST 28 ALT 27 Alkaline Phosphatase 106 Ammonia Total Protein 6.2 L Albumin 3.1 L Triglycerides 99 Cholesterol 120.40 LDL Cholesterol Direct 42 VLDL Cholesterol 20.0 HDL Cholesterol 40 Amylase Lipase 02/16/17 02/17/17 02/17/17 19:20 01:02 06:49 CK-MB (CK-2) 4.82 H 4.25 3.82 Troponin I < 0.012 < 0.012 < 0.012 Impressions: Chest X-Ray 02/16/17 11:31 IMPRESSION: NO ACUTE RADIOGRAPHIC FINDING IN THE CHEST. Head CT 02/16/17 11:31 IMPRESSION: NORMAL BRAIN CT WITHOUT CONTRAST. Assessment & Plan - Diagnosis (1) Metabolic encephalopathy Is this a current diagnosis for this admission?: YesPlan: She has metabolic encephalopathy due to combination of acute kidney injury, UTI , electrolyte derangement (2) Acute kidney injury Is this a current diagnosis for this admission?: YesPlan: She has a history of chronic kidney disease, baseline creatinine is 1.8, there is a superimposed acute kidney injury, this is most likely prerenal, she gave a history of GI bleed, the worsening BUN and creatinine could be related to the GI bleed. (3) Urinary tract infection Qualifiers: Urinary tract infection type: site unspecified Hematuria presence: without hematuria Qualified Code(s): N39.0 - Urinary tract infection, site not specified Is this a current diagnosis for this admission?: YesPlan: The urinalysis suggest UTI, she will empirically be treated with Rocephin intravenously until culture results return. 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
[2017-02-17] MEDS ORDERED: LEVOTHYROXINE SODIUM 0.15 MG TABLET PO SCH (17:15)
[2017-02-17] MEDS ORDERED: (PENDING PHARMACY ID) (Tiotropium Bromide [Spiriva Respimat] 1 PUFF) IH SCH (17:15)
--- NOTE | 2017-02-17 17:19 | PDOC PROGRESS REPORT ---
Subjective Progress Note for:: 02/17/17 Subjective:: She was seen by the bedside, she was admitted yesterday when she presented metabolic encephalopathy associated with acute kidney injury, UTI. She have expiratory wheeze both lung salazar on auscultation Physical Exam Vital Signs: Temp Pulse Resp BP Pulse Ox 97.7 F 80 20 147/63 H 100 02/17/17 11:32 02/17/17 14:00 02/17/17 11:32 02/17/17 11:32 02/17/17 11:32 Intake & Output 02/16/17 02/17/17 02/18/17 06:59 06:59 06:59 Intake Total 775 932 Output Total 1500 1400 Balance -725 -468 Weight 158.3 kg General appearance: PRESENT: mild distress Eye exam: PRESENT: PERRLA Mouth exam: PRESENT: moist Respiratory exam: PRESENT: wheezes Cardiovascular exam: PRESENT: +S1, +S2 GI/Abdominal exam: PRESENT: soft Musculoskeletal exam: PRESENT: deformity Neurological exam: PRESENT: alert Results Laboratory Results: 02/17/17 06:49 02/17/17 06:49 02/16/17 02/16/17 02/17/17 19:20 19:20 06:49 WBC 5.2 RBC 3.37 L Hgb 10.3 L Hct 32.3 L MCV 96 MCH 30.6 MCHC 31.9 L RDW 15.1 H Plt Count 137 L Seg Neutrophils % 73.2 Lymphocytes % 11.5 L Monocytes % 10.4 Eosinophils % 4.4 Basophils % 0.5 Absolute Neutrophils 3.8 Absolute Lymphocytes 0.6 Absolute Monocytes 0.5 Absolute Eosinophils 0.2 Absolute Basophils 0.0 Sodium Potassium Chloride Carbon Dioxide Anion Gap BUN Creatinine Est GFR ( Amer) Est GFR (Non-Af Amer) Glucose Calcium Phosphorus 7.0 H Magnesium 2.1 Total Bilirubin AST ALT Alkaline Phosphatase Ammonia < 8.7 L Total Protein Albumin Triglycerides Cholesterol LDL Cholesterol Direct VLDL Cholesterol HDL Cholesterol Amylase 34 Lipase 69.9 02/17/17 06:49 WBC RBC Hgb Hct MCV MCH MCHC RDW Plt Count Seg Neutrophils % Lymphocytes % Monocytes % Eosinophils % Basophils % Absolute Neutrophils Absolute Lymphocytes Absolute Monocytes Absolute Eosinophils Absolute Basophils Sodium 146.3 H Potassium 5.1 H Chloride 116 H Carbon Dioxide 20 L Anion Gap 10 BUN 79 H Creatinine 2.75 H Est GFR ( Amer) 20 L Est GFR (Non-Af Amer) 17 L Glucose 77 Calcium 8.5 Phosphorus Magnesium Total Bilirubin 0.4 AST 28 ALT 27 Alkaline Phosphatase 106 Ammonia Total Protein 6.2 L Albumin 3.1 L Triglycerides 99 Cholesterol 120.40 LDL Cholesterol Direct 42 VLDL Cholesterol 20.0 HDL Cholesterol 40 Amylase Lipase 02/16/17 02/17/17 02/17/17 19:20 01:02 06:49 CK-MB (CK-2) 4.82 H 4.25 3.82 Troponin I < 0.012 < 0.012 < 0.012 Impressions: Chest X-Ray 02/16/17 11:31 IMPRESSION: NO ACUTE RADIOGRAPHIC FINDING IN THE CHEST. Head CT 02/16/17 11:31 IMPRESSION: NORMAL BRAIN CT WITHOUT CONTRAST. Assessment & Plan - Diagnosis (1) Metabolic encephalopathy Is this a current diagnosis for this admission?: Yes (2) Acute kidney injury Is this a current diagnosis for this admission?: YesPlan: The acute kidney injury is improving, the serum creatinine is 2 it was 4 yesterday, she will continue IV fluid therapy (3) Urinary tract infection Qualifiers: Urinary tract infection type: site unspecified Hematuria presence: without hematuria Qualified Code(s): N39.0 - Urinary tract infection, site not specified Is this a current diagnosis for this admission?: YesPlan: She will continue IV antibiotic (4) Chronic kidney disease, stage III (moderate) Is this a current diagnosis for this admission?: Yes (5) Morbid obesity due to excess calories Is this a current diagnosis for this admission?: Yes (6) Type 2 diabetes mellitus with diabetic polyneuropathy Qualifiers: Diabetes mellitus half-way insulin use: with half-way use Qualified Code(s): E11.42 - Type 2 diabetes mellitus with diabetic polyneuropathy Is this a current diagnosis for this admission?: Yes (7) Acute asthma exacerbation Qualifiers: Asthma severity: moderate persistent Qualified Code(s): J45.41 - Moderate persistent asthma with (acute) exacerbation Is this a current diagnosis for this admission?: YesPlan: Patient is wheezing she will be treated with bronchodilators including duoneb and spiriva respimat
[2017-02-17] MEDS ORDERED: CEFTRIAXONE 1 GM/D5W RTU 1 GM/50 ML RTUPB IV SCH (18:00)
[2017-02-17] MEDS ORDERED: LEVOTHYROXINE SODIUM 0.15 MG TABLET PO ONE (18:00)
[2017-02-17] MEDS ORDERED: LANSOPRAZOLE 30 MG TAB.RAP.DR PO ONE (19:00)
[2017-02-17] MEDS ORDERED: SITAGLIPTIN PHOSPHATE 50 MG TABLET PO ONE (19:00)
[2017-02-17] MEDS: PREGABALIN 75 MG CAPSULE PO SCH (21:10)
[2017-02-17] MEDS: TOPIRAMATE 100 MG TABLET PO SCH (21:13)
[2017-02-18 04:30] LABS: ABSOLUTE EOSINOPHILS # (AUTO) 0.3 10^3/uL (0.0-0.6); ABSOLUTE MONOCYTES (AUTO) 0.7 10^3/uL (0.1-1.4); ABSOLUTE NEUT (AUTO) 3.2 10^3/uL (1.7-8.2); BASOPHILS % (AUTO) 0.9 % (0-2); EOSINOPHILS % (AUTO) 5.1 % (0-6); HEMATOCRIT 32.5 % (36.0-47.0); HEMOGLOBIN 10.3 g/dL (12.0-15.5); HGB HCT DIFFERENCE -1.6; LYMPHOCYTES % (AUTO) 18.7 % (13-45); MEAN CORPUSCULAR HEMOGLOBIN 30.3 pg (27.0-33.4); MEAN CORPUSCULAR HGB CONC 31.7 g/dL (32.0-36.0); MEAN CORPUSCULAR VOLUME 96 fl (80-97); MONOCYTES % (AUTO) 12.8 % (3-13); RED CELL DISTRIBUTION WIDTH 15.2 % (11.5-14.0); SEGMENTED NEUTROPHILS % (AUTO) 62.5 % (42-78); WHITE BLOOD COUNT 5.1 10^3/uL (4.0-10.5)
[2017-02-18] MEDS: LANSOPRAZOLE 30 MG TAB.RAP.DR PO SCH (06:19)
[2017-02-18] MEDS: HEPARIN SOD (PORCINE) 5,000 UNIT/ML 1 ML SYRINGE SUBCUT SCH ×3 (06:20→21:38)
[2017-02-18] MEDS: HYDROCODONE/ACETAMINOPHEN 5-325 MG TABLET PO PRN ×3 (06:20→21:38)
[2017-02-18] MEDS: NORMAL SALINE 1000 ML 1,000 ML IV PRN (06:22)
[2017-02-18] MEDS: PREGABALIN 75 MG CAPSULE PO SCH ×2 (09:20→21:37)
[2017-02-18] MEDS: TOPIRAMATE 100 MG TABLET PO SCH ×2 (09:21→21:37)
[2017-02-18] MEDS: LEVOTHYROXINE SODIUM 0.15 MG TABLET PO SCH (09:21)
[2017-02-18] MEDS: SITAGLIPTIN PHOSPHATE 50 MG TABLET PO SCH (09:22)
[2017-02-18 14:08] LABS: ALANINE AMINOTRANSFERASE 35 U/L (9-52); ALBUMIN 3.1 g/dL (3.5-5.0); ALKALINE PHOSPHATASE 123 U/L (38-126); ANION GAP 9 (5-19); ASPARTATE AMINO TRANSFERASE 29 U/L (14-36); BILIRUBIN,DIRECT 0.3 mg/dL (0.0-0.4); BILIRUBIN,TOTAL 0.3 mg/dL (0.2-1.3); CALCIUM 8.6 mg/dL (8.4-10.2); CARBON DIOXIDE 21 mmol/L (22-30); CHLORIDE 116 mmol/L (98-107); CREATININE RESULT 2.02 mg/dL (0.52-1.25); GLUCOSE 98 mg/dL (75-110); POTASSIUM 5.4 mmol/L (3.6-5.0); SODIUM 146.4 mmol/L (137-145); TOTAL PROTEIN 6.4 g/dL (6.3-8.2)
[2017-02-18 14:34] LABS: BLOOD UREA NITROGEN 59 mg/dL (7-20)
--- NOTE | 2017-02-18 15:52 | PDOC PROGRESS REPORT ---
Subjective Progress Note for:: 02/18/17 Subjective:: She was seen by the bedside, she has E. coli UTI,resistant to Cipro and Levaquin. The ISABELL is quite high for rocephin, the ISABELL for the ertapenem is low Physical Exam Vital Signs: Temp Pulse Resp BP Pulse Ox 98.4 F 73 20 163/60 H 97 02/18/17 15:21 02/18/17 15:21 02/18/17 15:21 02/18/17 15:21 02/18/17 15:21 Intake & Output 02/17/17 02/18/17 02/19/17 06:59 06:59 06:59 Intake Total 775 4787 355 Output Total 1500 4100 800 Balance -725 687 -445 Weight 158.3 kg 153.7 kg General appearance: PRESENT: no acute distress Eye exam: PRESENT: PERRLA Respiratory exam: PRESENT: clear to auscultation carter Cardiovascular exam: PRESENT: +S1, +S2 GI/Abdominal exam: PRESENT: soft Neurological exam: PRESENT: alert, CN II-XII grossly intact Results Laboratory Results: 02/18/17 03:39 02/18/17 03:39 02/18/17 02/18/17 03:39 03:39 WBC 5.1 RBC 3.40 L Hgb 10.3 L Hct 32.5 L MCV 96 MCH 30.3 MCHC 31.7 L RDW 15.2 H Plt Count 142 L Seg Neutrophils % 62.5 Lymphocytes % 18.7 Monocytes % 12.8 Eosinophils % 5.1 Basophils % 0.9 Absolute Neutrophils 3.2 Absolute Lymphocytes 1.0 Absolute Monocytes 0.7 Absolute Eosinophils 0.3 Absolute Basophils 0.0 Sodium 146.4 H Potassium 5.4 H Chloride 116 H Carbon Dioxide 21 L Anion Gap 9 BUN 59 H D Creatinine 2.02 H Est GFR ( Amer) 29 L Est GFR (Non-Af Amer) 24 L Glucose 98 Calcium 8.6 Total Bilirubin 0.3 AST 29 ALT 35 Alkaline Phosphatase 123 Total Protein 6.4 Albumin 3.1 L 02/16/17 02/17/17 02/17/17 19:20 01:02 06:49 CK-MB (CK-2) 4.82 H 4.25 3.82 Troponin I < 0.012 < 0.012 < 0.012 Impressions: Chest X-Ray 02/16/17 11:31 IMPRESSION: NO ACUTE RADIOGRAPHIC FINDING IN THE CHEST. Head CT 02/16/17 11:31 IMPRESSION: NORMAL BRAIN CT WITHOUT CONTRAST. Assessment & Plan - Diagnosis (1) Metabolic encephalopathy Is this a current diagnosis for this admission?: Yes (2) Acute kidney injury Is this a current diagnosis for this admission?: YesPlan: The kidney function is improving, will continue IV fluid therapy (3) Urinary tract infection Qualifiers: Urinary tract infection type: site unspecified Hematuria presence: without hematuria Qualified Code(s): N39.0 - Urinary tract infection, site not specified Is this a current diagnosis for this admission?: Yes (4) Chronic kidney disease, stage III (moderate) Is this a current diagnosis for this admission?: Yes (5) Morbid obesity due to excess calories Is this a current diagnosis for this admission?: Yes (6) Type 2 diabetes mellitus with diabetic polyneuropathy Qualifiers: Diabetes mellitus mcc insulin use: with manager terminal use Qualified Code(s): E11.42 - Type 2 diabetes mellitus with diabetic polyneuropathy Is this a current diagnosis for this admission?: Yes (7) Acute asthma exacerbation Qualifiers: Asthma severity: moderate persistent Qualified Code(s): J45.41 - Moderate persistent asthma with (acute) exacerbation Is this a current diagnosis for this admission?: Yes (8) Escherichia coli urinary tract infection Is this a current diagnosis for this admission?: YesPlan: The ISABELL for ceftriaxone is too high, will discontinue ceftriaxone and start ertapenem
[2017-02-18] MEDS: ERTAPENEM SODIUM 1 GM in NORMAL SALINE 50 ML IV SCH (17:58)
[2017-02-19] MEDS: NORMAL SALINE 1000 ML 1,000 ML IV PRN ×2 (02:41→12:57)
[2017-02-19 05:29] LABS: ABSOLUTE EOSINOPHILS # (AUTO) 0.2 10^3/uL (0.0-0.6); ABSOLUTE LYMPHOCYTES (AUTO) 0.9 10^3/uL (0.5-4.7); ABSOLUTE MONOCYTES (AUTO) 0.8 10^3/uL (0.1-1.4); ABSOLUTE NEUT (AUTO) 4.1 10^3/uL (1.7-8.2); BASOPHILS % (AUTO) 0.6 % (0-2); EOSINOPHILS % (AUTO) 4.1 % (0-6); HEMATOCRIT 32.6 % (36.0-47.0); HEMOGLOBIN 10.4 g/dL (12.0-15.5); HGB HCT DIFFERENCE -1.4; LYMPHOCYTES % (AUTO) 14.9 % (13-45); MEAN CORPUSCULAR HEMOGLOBIN 30.4 pg (27.0-33.4); MEAN CORPUSCULAR HGB CONC 31.9 g/dL (32.0-36.0); MEAN CORPUSCULAR VOLUME 95 fl (80-97); MONOCYTES % (AUTO) 12.9 % (3-13); RED BLOOD COUNT 3.43 10^6/uL (3.72-5.28); RED CELL DISTRIBUTION WIDTH 14.7 % (11.5-14.0); SEGMENTED NEUTROPHILS % (AUTO) 67.5 % (42-78)
[2017-02-19] MEDS: LANSOPRAZOLE 30 MG TAB.RAP.DR PO SCH (05:39)
[2017-02-19] MEDS: HYDROCODONE/ACETAMINOPHEN 5-325 MG TABLET PO PRN (05:39)
[2017-02-19] MEDS: HEPARIN SOD (PORCINE) 5,000 UNIT/ML 1 ML SYRINGE SUBCUT SCH ×3 (05:41→23:07)
[2017-02-19] MEDS: LEVOTHYROXINE SODIUM 0.15 MG TABLET PO SCH (08:18)
[2017-02-19] MEDS: SITAGLIPTIN PHOSPHATE 50 MG TABLET PO SCH (09:28)
[2017-02-19] MEDS: TOPIRAMATE 100 MG TABLET PO SCH ×2 (09:28→23:07)
[2017-02-19] MEDS: PREGABALIN 75 MG CAPSULE PO SCH ×2 (09:28→23:06)
[2017-02-19] MEDS: ERTAPENEM SODIUM 1 GM in NORMAL SALINE 50 ML IV SCH (17:24)
--- NOTE | 2017-02-19 18:58 | PDOC PROGRESS REPORT ---
Subjective Progress Note for:: 02/19/17 Subjective:: She was seen by the bedside, the lab data revealed hyperkalemia despite the fact that the kidney function is improving. The kidney function/basic metabolic panel will be repeated, the hyperkalemia is probably a lab error. She also have expiratory wheeze, she has history of asthma. Physical Exam Vital Signs: Temp Pulse Resp BP Pulse Ox 98.5 F 75 20 159/67 H 97 02/19/17 15:04 02/19/17 15:04 02/19/17 15:04 02/19/17 15:04 02/19/17 15:04 Intake & Output 02/18/17 02/19/17 02/20/17 06:59 06:59 06:59 Intake Total 4787 3112 2177 Output Total 4100 4000 1350 Balance 687 -888 827 Weight 153.7 kg 161.8 kg General appearance: PRESENT: mild distress Head exam: PRESENT: atraumatic, normocephalic Eye exam: PRESENT: conjunctiva pink, EOMI, PERRLA. ABSENT: scleral icterus Ear exam: PRESENT: normal external ear exam Mouth exam: PRESENT: moist, tongue midline Neck exam: PRESENT: full ROM Respiratory exam: PRESENT: wheezes Cardiovascular exam: PRESENT: RRR, +S1, +S2 Vascular exam: PRESENT: normal capillary refill GI/Abdominal exam: PRESENT: normal bowel sounds, soft Rectal exam: PRESENT: deferred Neurological exam: PRESENT: alert, awake, oriented to person, oriented to place , oriented to time, oriented to situation, CN II-XII grossly intact. ABSENT: motor sensory deficit Psychiatric exam: PRESENT: appropriate affect, normal mood. ABSENT: homicidal ideation, suicidal ideation Skin exam: PRESENT: dry, intact, warm. ABSENT: cyanosis, rash Results Laboratory Results: 02/19/17 04:33 02/19/17 04:33 WBC 6.0 RBC 3.43 L Hgb 10.4 L Hct 32.6 L MCV 95 MCH 30.4 MCHC 31.9 L RDW 14.7 H Plt Count 155 Seg Neutrophils % 67.5 Lymphocytes % 14.9 Monocytes % 12.9 Eosinophils % 4.1 Basophils % 0.6 Absolute Neutrophils 4.1 Absolute Lymphocytes 0.9 Absolute Monocytes 0.8 Absolute Eosinophils 0.2 Absolute Basophils 0.0 02/16/17 02/17/1702/17/17 19:20 01:02 06:49 CK-MB (CK-2) 4.82 H 4.25 3.82 Troponin I < 0.012 < 0.012 < 0.012 Impressions: Chest X-Ray 02/16/17 11:31 IMPRESSION: NO ACUTE RADIOGRAPHIC FINDING IN THE CHEST. Head CT 02/16/17 11:31 IMPRESSION: NORMAL BRAIN CT WITHOUT CONTRAST. Assessment & Plan - Diagnosis (1) Metabolic encephalopathy Is this a current diagnosis for this admission?: Yes (2) Acute kidney injury Is this a current diagnosis for this admission?: Yes (3) Urinary tract infection Qualifiers: Urinary tract infection type: site unspecified Hematuria presence: without hematuria Qualified Code(s): N39.0 - Urinary tract infection, site not specified Is this a current diagnosis for this admission?: Yes (4) Chronic kidney disease, stage III (moderate) Is this a current diagnosis for this admission?: Yes (5) Morbid obesity due to excess calories Is this a current diagnosis for this admission?: Yes (6) Type 2 diabetes mellitus with diabetic polyneuropathy Qualifiers: Diabetes mellitus superintendent marine oil terminal insulin use: with superintendent marine oil terminal use Qualified Code(s): E11.42 - Type 2 diabetes mellitus with diabetic polyneuropathy Is this a current diagnosis for this admission?: Yes (7) Acute asthma exacerbation Qualifiers: Asthma severity: moderate persistent Qualified Code(s): J45.41 - Moderate persistent asthma with (acute) exacerbation Is this a current diagnosis for this admission?: YesPlan: She will continue bronchodilators, we did not start patient on steroid because of E. coli sepsis this have a potential to worsen with steroid. (8) Escherichia coli urinary tract infection Is this a current diagnosis for this admission?: YesPlan: She has E. coli UTI, yesterday she was started on intravenous ertapenem because of a low ISABELL
[2017-02-19] MEDS ORDERED: IPRATROPIUM/ALBUTEROL 0.5-2.5 MG/3 ML AMPUL NEB PRN (19:14)
[2017-02-19 19:16] LABS: ALANINE AMINOTRANSFERASE 37 U/L (9-52); ALBUMIN 3.4 g/dL (3.5-5.0); ALKALINE PHOSPHATASE 137 U/L (38-126); ANION GAP 8 (5-19); ASPARTATE AMINO TRANSFERASE 39 U/L (14-36); BILIRUBIN,DIRECT 0.3 mg/dL (0.0-0.4); BILIRUBIN,TOTAL 0.3 mg/dL (0.2-1.3); BLOOD UREA NITROGEN 37 mg/dL (7-20); CALCIUM 8.9 mg/dL (8.4-10.2); CARBON DIOXIDE 24 mmol/L (22-30); CHLORIDE 112 mmol/L (98-107); CREATININE RESULT 1.44 mg/dL (0.52-1.25); GLUCOSE 181 mg/dL (75-110); SODIUM 143.6 mmol/L (137-145); TOTAL PROTEIN 6.9 g/dL (6.3-8.2)
[2017-02-19 19:21] LABS: POTASSIUM 6.3 mmol/L (3.6-5.0)
[2017-02-19 20:34] LABS: ANION GAP 8 (5-19); BLOOD UREA NITROGEN 36 mg/dL (7-20); CALCIUM 8.7 mg/dL (8.4-10.2); CARBON DIOXIDE 22 mmol/L (22-30); CHLORIDE 113 mmol/L (98-107); CREATININE RESULT 1.37 mg/dL (0.52-1.25); GLUCOSE 188 mg/dL (75-110); SODIUM 142.8 mmol/L (137-145)
[2017-02-19 20:36] LABS: POTASSIUM 6.1 mmol/L (3.6-5.0)
[2017-02-19] MEDS: SODIUM POLYSTYRENE SULFONATE 15 GM/60 ML PO SCH (23:08)
[2017-02-20] MEDS: NORMAL SALINE 1000 ML 1,000 ML IV PRN ×3 (01:37→23:46)
[2017-02-20] MEDS: SODIUM POLYSTYRENE SULFONATE 15 GM/60 ML PO SCH ×2 (01:42→05:44)
[2017-02-20 05:28] LABS: ALANINE AMINOTRANSFERASE 42 U/L (9-52); ALBUMIN 3.3 g/dL (3.5-5.0); ALKALINE PHOSPHATASE 120 U/L (38-126); ANION GAP 6 (5-19); ASPARTATE AMINO TRANSFERASE 39 U/L (14-36); BILIRUBIN,DIRECT 0.3 mg/dL (0.0-0.4); BILIRUBIN,TOTAL 0.3 mg/dL (0.2-1.3); BLOOD UREA NITROGEN 34 mg/dL (7-20); CALCIUM 8.8 mg/dL (8.4-10.2); CARBON DIOXIDE 22 mmol/L (22-30); CHLORIDE 115 mmol/L (98-107); CREATININE RESULT 1.33 mg/dL (0.52-1.25); GLUCOSE 181 mg/dL (75-110); POTASSIUM 5.9 mmol/L (3.6-5.0); SODIUM 143.3 mmol/L (137-145); TOTAL PROTEIN 6.6 g/dL (6.3-8.2)
[2017-02-20] MEDS: HEPARIN SOD (PORCINE) 5,000 UNIT/ML 1 ML SYRINGE SUBCUT SCH ×3 (05:43→21:38)
[2017-02-20] MEDS: LANSOPRAZOLE 30 MG TAB.RAP.DR PO SCH (05:44)
[2017-02-20] MEDS: INSULIN LISPRO 100 UNIT/ML 3 ML VIAL SUBCUT PRN (08:04)
[2017-02-20] MEDS: LEVOTHYROXINE SODIUM 0.15 MG TABLET PO SCH (08:04)
[2017-02-20] MEDS: SITAGLIPTIN PHOSPHATE 50 MG TABLET PO SCH (10:19)
[2017-02-20] MEDS: TOPIRAMATE 100 MG TABLET PO SCH ×2 (10:20→21:37)
[2017-02-20] MEDS: PREGABALIN 75 MG CAPSULE PO SCH ×2 (10:20→21:37)
[2017-02-20] MEDS: HYDROCODONE/ACETAMINOPHEN 5-325 MG TABLET PO PRN ×2 (11:43→21:37)
[2017-02-20] MEDS ORDERED: SODIUM POLYSTYRENE SULFONATE 15 GM/60 ML PO ONE (14:00)
[2017-02-20] MEDS ORDERED: METOPROLOL SUCCINATE 50 MG TAB.SR.24H PO ONE (14:30)
[2017-02-20] MEDS: ERTAPENEM SODIUM 1 GM in NORMAL SALINE 50 ML IV SCH (17:15)
[2017-02-20 18:32] LABS: ALANINE AMINOTRANSFERASE 41 U/L (9-52); ALBUMIN 3.5 g/dL (3.5-5.0); ALKALINE PHOSPHATASE 121 U/L (38-126); ANION GAP 9 (5-19); ASPARTATE AMINO TRANSFERASE 48 U/L (14-36); BILIRUBIN,DIRECT 0.4 mg/dL (0.0-0.4); BILIRUBIN,TOTAL 0.4 mg/dL (0.2-1.3); BLOOD UREA NITROGEN 30 mg/dL (7-20); CALCIUM 8.8 mg/dL (8.4-10.2); CARBON DIOXIDE 24 mmol/L (22-30); CHLORIDE 112 mmol/L (98-107); CREATININE RESULT 1.27 mg/dL (0.52-1.25); GLUCOSE 162 mg/dL (75-110); POTASSIUM 5.5 mmol/L (3.6-5.0); SODIUM 144.8 mmol/L (137-145)
--- NOTE | 2017-02-20 19:28 | PDOC PROGRESS REPORT ---
Subjective Progress Note for:: 02/20/17 Subjective:: Patient was seen by the bedside, she had hyperkalemia, was treated with Kayexalate. Kidney function continues to improve Physical Exam Vital Signs: Temp Pulse Resp BP Pulse Ox 98.2 F 65 20 160/82 H 100 02/20/17 16:00 02/20/17 16:00 02/20/17 16:00 02/20/17 16:00 02/20/17 16:00 Intake & Output 02/19/17 02/20/17 02/21/17 06:59 06:59 06:59 Intake Total 3112 3617 1800 Output Total 4000 2750 2000 Balance -888 867 -200 Weight 161.8 kg 162.1 kg General appearance: PRESENT: no acute distress Eye exam: PRESENT: PERRLA Respiratory exam: PRESENT: rhonchi Cardiovascular exam: PRESENT: +S1, +S2 GI/Abdominal exam: PRESENT: soft Neurological exam: PRESENT: alert, CN II-XII grossly intact Results Laboratory Results: 02/19/17 04:33 02/20/17 17:54 02/19/17 02/20/17 02/20/17 20:05 04:07 17:54 Sodium 142.8 143.3 144.8 Potassium 6.1 H* 5.9 H 5.5 H Chloride 113 H 115 H 112 H Carbon Dioxide 22 22 24 Anion Gap 8 6 9 BUN 36 H 34 H 30 H Creatinine 1.37 H 1.33 H 1.27 H Est GFR ( Amer) 46 L 47 L 50 L Est GFR (Non-Af Amer) 38 L 39 L 41 L Glucose 188 H 181 H 162 H Calcium 8.7 8.8 8.8 Total Bilirubin 0.3 0.4 AST 39 H 48 H ALT 42 41 Alkaline Phosphatase 120 121 Total Protein 6.6 7.0 Albumin 3.3 L 3.5 02/16/17 02/17/17 02/17/17 19:20 01:02 06:49 CK-MB (CK-2) 4.82 H 4.25 3.82 Troponin I < 0.012 < 0.012 < 0.012 Impressions: Chest X-Ray 02/16/17 11:31 IMPRESSION: NO ACUTE RADIOGRAPHIC FINDING IN THE CHEST. Head CT 02/16/17 11:31 IMPRESSION: NORMAL BRAIN CT WITHOUT CONTRAST. Assessment & Plan - Diagnosis (1) Metabolic encephalopathy Is this a current diagnosis for this admission?: Yes (2) Acute kidney injury Is this a current diagnosis for this admission?: Yes (3) Urinary tract infection Qualifiers: Urinary tract infection type: site unspecified Hematuria presence: without hematuria Qualified Code(s): N39.0 - Urinary tract infection, site not specified Is this a current diagnosis for this admission?: Yes (4) Chronic kidney disease, stage III (moderate) Is this a current diagnosis for this admission?: Yes (5) Morbid obesity due to excess calories Is this a current diagnosis for this admission?: Yes (6) Type 2 diabetes mellitus with diabetic polyneuropathy Qualifiers: Diabetes mellitus buttermaker insulin use: with buttermaker use Qualified Code(s): E11.42 - Type 2 diabetes mellitus with diabetic polyneuropathy Is this a current diagnosis for this admission?: Yes (7) Acute asthma exacerbation Qualifiers: Asthma severity: moderate persistent Qualified Code(s): J45.41 - Moderate persistent asthma with (acute) exacerbation Is this a current diagnosis for this admission?: Yes (8) Escherichia coli urinary tract infection Is this a current diagnosis for this admission?: Yes (9) Hyperkalemia Is this a current diagnosis for this admission?: YesPlan: She was treated with Kayexalate,potassium is improved
[2017-02-20] MEDS ORDERED: LISINOPRIL 10 MG TABLET PO SCH (22:00)
[2017-02-21] MEDS: LANSOPRAZOLE 30 MG TAB.RAP.DR PO SCH (05:16)
[2017-02-21] MEDS: HEPARIN SOD (PORCINE) 5,000 UNIT/ML 1 ML SYRINGE SUBCUT SCH ×3 (05:16→22:10)
[2017-02-21] MEDS: LEVOTHYROXINE SODIUM 0.15 MG TABLET PO SCH (08:37)
[2017-02-21] MEDS: NORMAL SALINE 1000 ML 1,000 ML IV PRN (11:08)
[2017-02-21] MEDS: PREGABALIN 75 MG CAPSULE PO SCH ×2 (11:10→22:10)
[2017-02-21] MEDS: FUROSEMIDE 40 MG TABLET PO SCH (11:10)
[2017-02-21] MEDS: AMLODIPINE BESYLATE 5 MG TABLET PO SCH (11:10)
[2017-02-21] MEDS: SITAGLIPTIN PHOSPHATE 50 MG TABLET PO SCH (11:11)
[2017-02-21] MEDS: TOPIRAMATE 100 MG TABLET PO SCH ×2 (11:11→22:10)
[2017-02-21] MEDS: METOPROLOL SUCCINATE 50 MG TAB.SR.24H PO SCH (11:11)
[2017-02-21 12:56] LABS: ABSOLUTE BASOPHILS # (AUTO) 0.1 10^3/uL (0.0-0.2); ABSOLUTE EOSINOPHILS # (AUTO) 0.4 10^3/uL (0.0-0.6); ABSOLUTE LYMPHOCYTES (AUTO) 1.2 10^3/uL (0.5-4.7); ABSOLUTE NEUT (AUTO) 5.7 10^3/uL (1.7-8.2); BASOPHILS % (AUTO) 0.9 % (0-2); EOSINOPHILS % (AUTO) 4.8 % (0-6); LYMPHOCYTES % (AUTO) 14.1 % (13-45); MEAN CORPUSCULAR HEMOGLOBIN 30.3 pg (27.0-33.4); MEAN CORPUSCULAR HGB CONC 31.5 g/dL (32.0-36.0); MEAN CORPUSCULAR VOLUME 96 fl (80-97); MONOCYTES % (AUTO) 11.8 % (3-13); RED BLOOD COUNT 3.64 10^6/uL (3.72-5.28); RED CELL DISTRIBUTION WIDTH 15.2 % (11.5-14.0); SEGMENTED NEUTROPHILS % (AUTO) 68.4 % (42-78); WHITE BLOOD COUNT 8.3 10^3/uL (4.0-10.5)
[2017-02-21] MEDS: INSULIN LISPRO 100 UNIT/ML 3 ML VIAL SUBCUT PRN (13:09)
[2017-02-21 13:20] LABS: ALANINE AMINOTRANSFERASE 51 U/L (9-52); ALBUMIN 3.3 g/dL (3.5-5.0); ALKALINE PHOSPHATASE 125 U/L (38-126); ANION GAP 11 (5-19); ASPARTATE AMINO TRANSFERASE 70 U/L (14-36); BILIRUBIN,DIRECT 0.4 mg/dL (0.0-0.4); BILIRUBIN,TOTAL 0.5 mg/dL (0.2-1.3); BLOOD UREA NITROGEN 26 mg/dL (7-20); CALCIUM 8.9 mg/dL (8.4-10.2); CARBON DIOXIDE 16 mmol/L (22-30); CHLORIDE 116 mmol/L (98-107); CREATININE RESULT 1.09 mg/dL (0.52-1.25); GLUCOSE 145 mg/dL (75-110); POTASSIUM 5.7 mmol/L (3.6-5.0); SODIUM 143.1 mmol/L (137-145); TOTAL PROTEIN 6.9 g/dL (6.3-8.2)
[2017-02-21] MEDS ORDERED: SODIUM POLYSTYRENE SULFONATE 15 GM/60 ML PO ONE (15:28)
--- NOTE | 2017-02-21 15:33 | PDOC PROGRESS REPORT ---
Subjective Progress Note for:: 02/21/17 Subjective:: She has persistent hyperkalemia this is most likely from intracellular shift of potassium. The kidney function is normalized with IV hydration, the IV antibiotic ertapenem will be discontinued, she be started on p.o. cefuroxime since the E. coli is sensitive to cefuroxime. Hopefully he should be discharged home tomorrow if the potassium will allow us. She is no longer encephalopathic at this time. Physical Exam Vital Signs: Temp Pulse Resp BP Pulse Ox 97.9 F 54 L 20 180/78 H 100 02/21/17 11:08 02/21/17 11:08 02/21/17 11:08 02/21/17 11:08 02/21/17 11:08 Intake & Output 02/20/17 02/21/17 02/22/17 06:59 06:59 06:59 Intake Total 3617 3900 450 Output Total 2750 3100 500 Balance 867 800 -50 Weight 162.1 kg 163.5 kg General appearance: PRESENT: no acute distress Eye exam: PRESENT: PERRLA Respiratory exam: PRESENT: clear to auscultation carter Cardiovascular exam: PRESENT: +S1, +S2 GI/Abdominal exam: PRESENT: soft Neurological exam: PRESENT: alert, CN II-XII grossly intact Results Laboratory Results: 02/21/17 12:35 02/21/17 12:35 02/20/17 02/21/17 02/21/17 17:54 12:35 12:35 WBC 8.3 RBC 3.64 L Hgb 11.0 L Hct 35.0 L MCV 96 MCH 30.3 MCHC 31.5 L RDW 15.2 H Plt Count 154 Seg Neutrophils % 68.4 Lymphocytes % 14.1 Monocytes % 11.8 Eosinophils % 4.8 Basophils % 0.9 Absolute Neutrophils 5.7 Absolute Lymphocytes 1.2 Absolute Monocytes 1.0 Absolute Eosinophils 0.4 Absolute Basophils 0.1 Sodium 144.8 143.1 Potassium 5.5 H 5.7 H Chloride 112 H 116 H Carbon Dioxide 24 16 L Anion Gap 9 11 BUN 30 H 26 H Creatinine 1.27 H 1.09 Est GFR ( Amer) 50 L > 60 Est GFR (Non-Af Amer) 41 L 49 L Glucose 162 H 145 H Calcium 8.8 8.9 Total Bilirubin 0.4 0.5 AST 48 H 70 H ALT 41 51 Alkaline Phosphatase 121 125 Total Protein 7.0 6.9 Albumin 3.5 3.3 L 02/16/17 02/17/17 02/17/17 19:20 01:02 06:49 CK-MB (CK-2) 4.82 H 4.25 3.82 Troponin I < 0.012 < 0.012 < 0.012 Impressions: Chest X-Ray 02/16/17 11:31 IMPRESSION: NO ACUTE RADIOGRAPHIC FINDING IN THE CHEST. Head CT 02/16/17 11:31 IMPRESSION: NORMAL BRAIN CT WITHOUT CONTRAST. Assessment & Plan - Diagnosis (1) Metabolic encephalopathy Is this a current diagnosis for this admission?: Yes (2) Acute kidney injury Is this a current diagnosis for this admission?: Yes (3) Urinary tract infection Qualifiers: Urinary tract infection type: site unspecified Hematuria presence: without hematuria Qualified Code(s): N39.0 - Urinary tract infection, site not specified Is this a current diagnosis for this admission?: Yes (4) Chronic kidney disease, stage III (moderate) Is this a current diagnosis for this admission?: Yes (5) Morbid obesity due to excess calories Is this a current diagnosis for this admission?: Yes (6) Type 2 diabetes mellitus with diabetic polyneuropathy Qualifiers: Diabetes mellitus rat exterminator insulin use: with rat exterminator use Qualified Code(s): E11.42 - Type 2 diabetes mellitus with diabetic polyneuropathy Is this a current diagnosis for this admission?: Yes (7) Acute asthma exacerbation Qualifiers: Asthma severity: moderate persistent Qualified Code(s): J45.41 - Moderate persistent asthma with (acute) exacerbation Is this a current diagnosis for this admission?: Yes (8) Escherichia coli urinary tract infection Is this a current diagnosis for this admission?: YesPlan: She has E. coli UTI, presently on intravenous ertapenem, this would be discontinued, she be started on p.o. cefuroxime (9) Hyperkalemia Is this a current diagnosis for this admission?: YesPlan: Patient history of hyperkalemia, Kayexalate is ordered
[2017-02-21] MEDS: CEFUROXIME 250 MG TABLET PO SCH (17:52)
[2017-02-22] MEDS: HYDROCODONE/ACETAMINOPHEN 5-325 MG TABLET PO PRN ×3 (00:03→18:01)
[2017-02-22] MEDS: TOPIRAMATE 100 MG TABLET PO SCH (00:04)
[2017-02-22] MEDS: PREGABALIN 75 MG CAPSULE PO SCH (00:05)
[2017-02-22] MEDS: LANSOPRAZOLE 30 MG TAB.RAP.DR PO SCH (06:25)
[2017-02-22] MEDS: HEPARIN SOD (PORCINE) 5,000 UNIT/ML 1 ML SYRINGE SUBCUT SCH ×2 (06:25→15:18)
[2017-02-22] MEDS: NORMAL SALINE 1000 ML 1,000 ML IV PRN (06:26)
[2017-02-22] MEDS: METOPROLOL SUCCINATE 50 MG TAB.SR.24H PO SCH (10:30)
[2017-02-22] MEDS: FUROSEMIDE 40 MG TABLET PO SCH (10:31)
[2017-02-22] MEDS: AMLODIPINE BESYLATE 5 MG TABLET PO SCH (10:31)
[2017-02-22] MEDS: LEVOTHYROXINE SODIUM 0.15 MG TABLET PO SCH (10:31)
[2017-02-22] MEDS: SITAGLIPTIN PHOSPHATE 50 MG TABLET PO SCH (10:31)
[2017-02-22] MEDS: CEFUROXIME 250 MG TABLET PO SCH ×2 (10:35→17:58)
[2017-02-22 13:38] LABS: ALANINE AMINOTRANSFERASE 55 U/L (9-52); ALBUMIN 3.4 g/dL (3.5-5.0); ALKALINE PHOSPHATASE 117 U/L (38-126); ANION GAP 10 (5-19); ASPARTATE AMINO TRANSFERASE 56 U/L (14-36); BILIRUBIN,DIRECT 0.3 mg/dL (0.0-0.4); BILIRUBIN,TOTAL 0.4 mg/dL (0.2-1.3); BLOOD UREA NITROGEN 23 mg/dL (7-20); CALCIUM 8.6 mg/dL (8.4-10.2); CARBON DIOXIDE 22 mmol/L (22-30); CHLORIDE 114 mmol/L (98-107); CREATININE RESULT 1.08 mg/dL (0.52-1.25); GLUCOSE 169 mg/dL (75-110); POTASSIUM 4.6 mmol/L (3.6-5.0)
--- NOTE | 2017-02-22 14:02 | PDOC DISCHARGE SUMMARY ---
General - Admit/Disc Date/PCP Admission Date/Primary Care Provider: 02/16/17 17:54 BRAD GIVENS MD Discharge Date: 03/01/17 - Discharge Diagnosis (1) Metabolic encephalopathy Is this a current diagnosis for this admission?: Yes (2) Acute kidney injury Is this a current diagnosis for this admission?: Yes (3) Urinary tract infection Is this a current diagnosis for this admission?: Yes (4) Chronic kidney disease, stage III (moderate) Is this a current diagnosis for this admission?: Yes (5) Morbid obesity due to excess calories Is this a current diagnosis for this admission?: Yes (6) Type 2 diabetes mellitus with diabetic polyneuropathy Is this a current diagnosis for this admission?: Yes (7) Acute asthma exacerbation Is this a current diagnosis for this admission?: Yes (8) Escherichia coli urinary tract infection Is this a current diagnosis for this admission?: Yes (9) Hyperkalemia Is this a current diagnosis for this admission?: Yes - Additional Information Resuscitation Status: Full Code Home Medications: Rosuvastatin Calcium [Crestor 10 mg Tablet] 10 mg PO DAILY 03/10/12 Esomeprazole Magnesium [Nexium] 40 mg PO DAILY 02/01/14 Lisinopril/Hydrochlorothiazide [Lisinopril-Hctz 10-12.5 mg Tab] 1 each PO Q12H 02/01/14 Pioglitazone HCl 15 mg PO QAM 02/01/14 Azithromycin [Zithromax 250 mg Tablet] 250 mg PO ASDIR PRN #6 tablet 10/08/14 Guaifenesin 100 mg PO TID #100 ml 10/08/14 Sulfamethoxazole/Trimethoprim [Bactrim Ds Tablet] 1 each PO BID #14 tablet 03/08 Nitrofurantoin/Nitrofuran Mac [Macrobid 100 mg Capsule] 100 mg PO BID #20 capsule 06/19/15 Albuterol Sulfate [Ventolin Hfa] 1 puff IH Q4HP PRN 02/16/17 Amlodipine Besylate [Norvasc 5 mg Tablet] 5 mg PO DAILY 02/16/17 Atorvastatin Calcium [Lipitor 20 mg Tablet] 20 mg PO DAILY 02/16/17 Dexlansoprazole [Dexilant 60 mg Capsule] 60 mg PO DAILY 02/16/17 Doxepin HCl 75 mg PO QHS 02/16/17 Duloxetine HCl [Cymbalta] 60 mg PO BID 02/16/17 Ergocalciferol (Vitamin D2) [Vitamin D2] 50,000 units PO MO@1000 02/16/17 Insulin Glargine,Hum.rec.anlog [Lantus Solostar] 52 units SQ QHS 02/16/17 Levothyroxine Sodium [Synthroid] 150 mcg PO DAILY 02/16/17 Lisinopril [Zestril] 40 mg PO BID 02/16/17 Metoprolol Succinate [Toprol XL 200 mg Tablet] 200 mg PO DAILY 02/16/17 Mirabegron [Myrbetriq] 50 mg PO DAILY 02/16/17 Montelukast Sodium [Singulair 10 mg Tablet] 10 mg PO QPM 02/16/17 Pregabalin [Lyrica] 150 mg PO BID 02/16/17 Sitagliptin Phosphate [Januvia] 100 mg PO DAILY 02/16/17 Tiotropium [place] [Spiriva Respimat] 1 puff IH DAILY 02/16/17 Topiramate [Topamax 100 mg Tablet] 100 mg PO BID 02/16/17 Cefuroxime Axetil [Ceftin 250 mg Tablet] 250 mg PO BID #10 tablet 02/22/17 History of Present Illness History of Present Illness: ONDINA ENRIQUEZ is a 71 year old female, she was transferred from home by EMS to the emergency room for evaluation of altered mental status. She was found in her residence sitting on the toilet,incoherent, confused, she was transferred to the emergency room for further evaluation. In the emergency room she was examined and evaluated ,CAT scan of the head was done it was negative for any acute pathology. The blood work that was done showed electrolyte ,acid-base derangement, the sodium 146, potassium 5.7, BUN is 90, creatinine is 4.3. She has history of chronic kidney disease stage III , baseline creatinine is 1.8.,clearly there is acute kidney injury on a superimposed chronic kidney disease. The urinalysis showed bacteriuria, pyuria that suggest UTI. I spoke to the patient after she was seen and evaluated in the emergency room, she stated that she felt sick, she went to the bathroom to use the toilet, she said she passed blood in her stool that is when she got scared and that was the last she remembered Hospital Course Hospital Course: She was admitted for the management of metabolic encephalopathy due to E. coli UTI and associated acute kidney injury with hyperkalemia she was empirically treated initially with IV Rocephin this was subsequently changed to intravenous ertapenem and ultimately to p.o. cefuroxime for E. coli UTI she had acute kidney injury, most likely prerenal this is improved with hydration she had persistent hypokalemia most likely secondary to transcellular potassium shift she required Kayexalate.. She has multiple comorbid conditions including morbid obesity, body mass index 54, type 2 diabetes mellitus, sedentary lifestyle she also experienced an episode of encephalopathy while in the hospital, when she presented she was confused but this improved after a few days of treatment in the hospital but she also had episode of delirium after she improved in the hospital. Physical Exam Vital Signs: Temp Pulse Resp BP Pulse Ox 98.4 F 79 16 174/62 H 100 02/22/17 04:53 02/22/17 13:50 02/22/17 13:50 02/22/17 04:53 02/22/17 04:53 Intake & Output 02/21/17 02/22/17 02/23/17 06:59 06:59 06:59 Intake Total 3900 3250 Output Total 3100 1750 Balance 800 1500 Weight 163.5 kg 157.652 kg General appearance: PRESENT: no acute distress Eye exam: PRESENT: PERRLA Respiratory exam: PRESENT: clear to auscultation carter Cardiovascular exam: PRESENT: +S1, +S2 GI/Abdominal exam: PRESENT: soft Neurological exam: PRESENT: alert, CN II-XII grossly intact Results Laboratory Results: 02/21/17 12:35 02/22/17 13:11 02/22/17 13:11 Sodium 146.0 H Potassium 4.6 Chloride 114 H Carbon Dioxide 22 Anion Gap 10 BUN 23 H Creatinine 1.08 Est GFR ( Amer) > 60 Est GFR (Non-Af Amer) 50 L Glucose 169 H Calcium 8.6 Total Bilirubin 0.4 AST 56 H ALT 55 H Alkaline Phosphatase 117 Total Protein 7.0 Albumin 3.4 L 02/16/17 21:13 Blood Blood Culture - Final NO GROWTH IN 5 DAYS 02/16/17 19:20 Blood Blood Culture - Final NO GROWTH IN 5 DAYS 02/16/17 02/17/17 02/17/17 19:20 01:02 06:49 CK-MB (CK-2) 4.82 H 4.25 3.82 Troponin I < 0.012 < 0.012 < 0.012 Impressions: Chest X-Ray 02/16/17 11:31 IMPRESSION: NO ACUTE RADIOGRAPHIC FINDING IN THE CHEST. Head CT 02/16/17 11:31 IMPRESSION: NORMAL BRAIN CT WITHOUT CONTRAST.
[2017-02-22 18:41] VITALS: BP 126/71
[2017-02-23] MEDS ORDERED: ERGOCALCIFEROL (VITAMIN D2) 50000 UNIT (1.25 MG) CAPSULE PO SCH (10:00)
== END 2017-02-22 19:34 | disposition home health service (06) | DRG 682 ==
LOC: ER 11:25 → UNDOADMIN 15:08 → EH 15:08 → 3W 19:57
PROVIDERS: ADMIT Internal Medicine; ATTEND Internal Medicine
DX: N17.9 Acute kidney failure, unspecified (principal); G93.41 Metabolic encephalopathy; N39.0 Urinary tract infection, site not specified; J45.41 Moderate persistent asthma with (acute) exacerbation; Z68.43 Body mass index [BMI] 50.0-59.9, adult; E87.5 Hyperkalemia; E03.9 Hypothyroidism, unspecified; B96.20 Unspecified Escherichia coli [E. coli] as the cause of diseases classified elsewhere; E11.22 Type 2 diabetes mellitus with diabetic chronic kidney disease; I12.9 Hypertensive chronic kidney disease with stage 1 through stage 4 chronic kidney disease, or unspecified chronic kidney disease; N18.3 Chronic kidney disease, stage 3 (moderate); E11.42 Type 2 diabetes mellitus with diabetic polyneuropathy; E78.5 Hyperlipidemia, unspecified; K21.9 Gastro-esophageal reflux disease without esophagitis; R41.82 Altered mental status, unspecified; E66.01 Morbid (severe) obesity due to excess calories; R47.81 Slurred speech; Z60.2 Problems related to living alone; Z79.4 Long term (current) use of insulin; Z79.2 Long term (current) use of antibiotics; Z79.51 Long term (current) use of inhaled steroids; Z79.899 Other long term (current) drug therapy; Z88.6 Allergy status to analgesic agent; Z88.5 Allergy status to narcotic agent
CPT/HCPCS: 36415; 70450; 71010; 80048; 80053; 80061; 80307; 81001; 82140; 82150; 82272; 82550; 82553; 82962; 83036; 83690; 83735; 84100; 84439; 84443; 84484; 85025; 85610; 85730; 87040; 87086; 87088; 87186; 93005; 93010; 94640; 96365; 96375; 99291; G8981-GP; G8982-GP; J0610; J0696; J1335; J1644; J1815; J2310; J3490; J7030; J7620

== ENCOUNTER 2017-05-26 12:22 | Inpatient (IN) | payer MEDICARE, MEDICAID ==
[2017-05-26] MEDS ORDERED: PIPERACILLIN/TAZOBACTAM 4.5 GM VIAL IV ONE (12:40)
[2017-05-26] MEDS ORDERED: ACETAMINOPHEN 325 MG TABLET PO ONE (12:40)
[2017-05-26] MEDS ORDERED: NORMAL SALINE 1000 ML 1,000 ML IV ONE (12:40)
--- NOTE | 2017-05-26 12:42 | ER Document Report ---
ED Medical Screen (RME) - General Chief Complaint: Breathing Difficulty Stated Complaint: DIFFICULTY BREATHING Time Seen by Provider: 05/26/17 12:39 Notes: Patient states that she awoke with severe migratory joint pain. She also has had a fever nonproductive cough. Some nausea but no vomiting or diarrhea. No problems with urination. TRAVEL OUTSIDE OF THE [place] IN LAST 30 DAYS: No - Related Data Allergies/Adverse Reactions: aspirin [Aspirin] Allergy (Verified 05/26/17 12:27) Edema, GI UPSET morphine [Morphine] Allergy (Verified 05/26/17 12:27) ANAPHYLAXSIS, Facial swelling Past Medical History - Social History Frequency of alcohol use: None Drug Abuse: None - Past Medical History Cardiac Medical History: Reports: Hx Hypercholesterolemia, Hx Hypertension Pulmonary Medical History: Reports: Hx Asthma Neurological Medical History: Denies: Hx Cerebrovascular Accident Endocrine Medical History: Reports: Hx Diabetes Mellitus Type 2, Hx Hypothyroidism Renal/ Medical History: Denies: Hx Peritoneal Dialysis GI Medical History: Reports: Hx Gastroesophageal Reflux Disease, Hx Ulcer Musculoskeltal Medical History: Reports Hx Arthritis Psychiatric Medical History: Reports: Hx Depression Past Surgical History: Reports: Hx Cholecystectomy, Hx Hysterectomy, Hx Orthopedic Surgery. Denies: Hx Pacemaker - Immunizations Immunizations up to date: Yes Hx Diphtheria, Pertussis, Tetanus Vaccination: No Physical Exam - Vital signs Vitals: Temp Pulse BP Pulse Ox 100.5 F H 106 H 137/60 H 95 05/26/17 12:27 05/26/17 12:27 05/26/17 12:27 05/26/17 12:27 Course - Vital Signs Vital signs: Temp Pulse Resp BP Pulse Ox 100.5 F H 106 H 137/60 H 95 05/26/17 12:27 05/26/17 12:27 05/26/17 12:27 05/26/17 12:27
--- NOTE | 2017-05-26 13:21 | RADIOLOGY REPORT (SQ) ---
EXAM DESCRIPTION: CHEST SINGLE VIEW COMPLETED DATE/TIME: 05/26/2017 1:11 pm REASON FOR STUDY: cough/fever COMPARISON: AP chest 07/18/2015, 09/30/2016, 02/16/2017 EXAM PARAMETERS: NUMBER OF VIEWS: One view. TECHNIQUE: Single frontal radiographic view of the chest acquired. RADIATION DOSE: NA LIMITATIONS: Obese patient FINDINGS: LUNGS AND PLEURA: No opacities, masses or pneumothorax. No pleural effusion. MEDIASTINUM AND HILAR STRUCTURES: No masses. Contour normal. HEART AND VASCULAR STRUCTURES: Heart normal in size. Normal vasculature. BONES: No acute findings. HARDWARE: None in the chest. OTHER: No other significant finding. IMPRESSION: NO ACUTE RADIOGRAPHIC FINDING IN THE CHEST. TECHNICAL DOCUMENTATION: JOB ID: [id number]
[2017-05-26 13:47] LABS: HEMATOCRIT 35.5 % (36.0-47.0); HEMOGLOBIN 11.5 g/dL (12.0-15.5); MEAN CORPUSCULAR HEMOGLOBIN 30.6 pg (27.0-33.4); MEAN CORPUSCULAR HGB CONC 32.4 g/dL (32.0-36.0); MEAN CORPUSCULAR VOLUME 95 fl (80-97); RED BLOOD COUNT 3.75 10^6/uL (3.72-5.28); RED CELL DISTRIBUTION WIDTH 14.7 % (11.5-14.0); WHITE BLOOD COUNT 17.6 10^3/uL (4.0-10.5)
[2017-05-26 14:09] LABS: ALANINE AMINOTRANSFERASE 29 U/L (9-52); ALBUMIN 3.8 g/dL (3.5-5.0); ALKALINE PHOSPHATASE 148 U/L (38-126); ANION GAP 13 (5-19); ASPARTATE AMINO TRANSFERASE 27 U/L (14-36); BILIRUBIN,DIRECT 0.5 mg/dL (0.0-0.4); BILIRUBIN,TOTAL 0.6 mg/dL (0.2-1.3); BLOOD UREA NITROGEN 31 mg/dL (7-20); CALCIUM 9.5 mg/dL (8.4-10.2); CARBON DIOXIDE 27 mmol/L (22-30); CHLORIDE 104 mmol/L (98-107); CREATININE RESULT 1.43 mg/dL (0.52-1.25); GLUCOSE 287 mg/dL (75-110); POTASSIUM 4.5 mmol/L (3.6-5.0); SODIUM 143.7 mmol/L (137-145); TOTAL PROTEIN 7.2 g/dL (6.3-8.2)
[2017-05-26 14:15] LABS: BASOPHILS % (MANUAL) 0 % (0-2); EOSINOPHILS % (MANUAL) 0 % (0-6); LYMPHOCYTES % (MANUAL) 5 % (13-45); TOTAL CELLS COUNTED 100
[2017-05-26 14:20] LABS: TOXIC GRANULATION SLIGHT
[2017-05-26 14:21] LABS: ANISOCYTOSIS SLIGHT; PLATELET CLUMPS PRESENT; POLYCHROMASIA SLIGHT
--- NOTE | 2017-05-26 15:17 | ER Document Report ---
ED Respiratory Problem - General Mode of Arrival: Ambulatory Information source: Patient TRAVEL OUTSIDE OF THE [place] IN LAST 30 DAYS: No - HPI Patient complains to provider of: Short of breath <FLIP TINSLEY - Last Filed: 05/26/17 16:49> <WALE GRANGER - Last Filed: 05/26/17 17:13> - General Chief Complaint: Breathing Difficulty Stated Complaint: DIFFICULTY BREATHING Time Seen by Provider: 05/26/17 12:39 Notes: Patient is a 71-year-old female who presents to the emergency department today with complaints of shortness of breath. Patient is somnolent upon entry into the room and history is limited. Patient states she "got excited" and then developed shortness of breath. Patient also mentions a fall this morning but the mechanism of the fall is unclear. Patient does not report any injuries during the fall. (FLIP TINSLEY) - Related Data Allergies/Adverse Reactions: aspirin [Aspirin] Allergy (Verified 05/26/17 12:27) Edema, GI UPSET morphine [Morphine] Allergy (Verified 05/26/17 12:27) ANAPHYLAXSIS, Facial swelling Past Medical History - General Information source: [facility] Records Cannot obtain history due to: Other - somnolent - Social History Smoking Status: Never Smoker Frequency of alcohol use: None Drug Abuse: None Lives with: Family Family History: Reviewed & Not Pertinent - Past Medical History Cardiac Medical History: Reports: Hx Hypercholesterolemia, Hx Hypertension Pulmonary Medical History: Reports: Hx Asthma Endocrine Medical History: Reports: Hx Diabetes Mellitus Type 2, Hx Hypothyroidism GI Medical History: Reports: Hx Gastroesophageal Reflux Disease, Hx Ulcer Musculoskeltal Medical History: Reports Hx Arthritis Psychiatric Medical History: Reports: Hx Depression Past Surgical History: Reports: Hx Cholecystectomy, Hx Hysterectomy, Hx Orthopedic Surgery - Immunizations Immunizations up to date: Yes Hx Diphtheria, Pertussis, Tetanus Vaccination: No Hx Pneumococcal Vaccination: 03/11/12 <FLIP TINSLEY - Last Filed: 05/26/17 16:49> Review of Systems - Review of Systems -: Yes ROS unobtainable due to patient's medical condition - somnolent <FLIP TINSLEY - Last Filed: 05/26/17 16:49> Physical Exam <FLIP TINSLEY - Last Filed: 05/26/17 16:49> <WALE GRANGER - Last Filed: 05/26/17 17:13> - Vital signs Vitals: Temp Pulse BP Pulse Ox 100.5 F H 106 H 137/60 H 95 05/26/17 12:27 05/26/17 12:27 05/26/17 12:27 05/26/17 12:27 - Notes Notes: Physical Exam: General: Somnolent but arousable. HEENT: Normocephalic. Atraumatic. PERRL. Extraocular movements intact. Oropharynx clear. Neck: Supple. Non-tender. Respiratory: No respiratory distress. Clear and equal breath sounds bilaterally , no wheezing. Cardiovascular: Regular rate and rhythm. Abdominal: Normal Inspection. Non-tender. No distension. Normal Bowel Sounds. Back: Non-tender. No deformity or step off. Extremities: Moves all four extremities. Upper extremities: Normal inspection. Normal ROM. Lower extremities: 1+ edema bilaterally, chronic skin changes to bilateral lower extremities. Normal ROM. Neurological: Somnolent but arousable. Speech is somewhat unclear and slurred. Psychological: Unable to assess mentation secondary to somnolence and somewhat altered mental status Skin: see lower extremity exam (FLIP TINSLEY) Course - Laboratory Result Diagrams: 05/26/17 13:24 05/26/17 13:24 <FLIP TINSLEY - Last Filed: 05/26/17 16:49> - Laboratory Result Diagrams: 05/26/17 13:24 05/26/17 13:24 <WALE GRANGER - Last Filed: 05/26/17 17:13> - Re-evaluation Re-evalutation: 05/26/17 16:44 71-year-old female presents with unclear history. She does report she fell and "got excited" and became short of breath. With her shortness of breath and low- grade temperature, a sepsis workup was initiated. Her chest x-ray was nondiagnostic. She does have a significant elevation in her white blood cell count. Her lactic acid level is reasonable. Her CO2 level, based on her metabolic panel, appears reasonable. Urinalysis shows white blood cell clumps consistent with a urinary tract infection. She was initiated on Zosyn prior to return of these results. We will admit her to the hospital for urinary tract infection with evidence of sepsis/SIRS. 05/26/17 17:11 I have spoken with Dr. Givens knows the patient reports she frequently gets urinary tract infections. He will admit her to the hospital for ongoing care. ( WALE GRANGER) - Vital Signs Vital signs: Temp Pulse Resp BP Pulse Ox 100.5 F H 106 H 137/60 H 95 05/26/17 12:27 05/26/17 12:27 05/26/17 12:27 05/26/17 12:27 - Laboratory Laboratory results interpreted by me: 05/26/17 05/26/17 05/26/17 13:24 13:24 15:53 WBC 17.6 H Hgb 11.5 L Hct 35.5 L RDW 14.7 H Seg Neuts % (Manual) 91 H Lymphocytes % (Manual) 5 L Abs Neuts (Manual) 16.0 H BUN 31 H Creatinine 1.43 H Est GFR ( Amer) 44 L Est GFR (Non-Af Amer) 36 L Glucose 287 H Direct Bilirubin 0.5 H Alkaline Phosphatase 148 H Urine Protein 100 H Urine Urobilinogen 2.0 H Ur Leukocyte Esterase MODERATE H Discharge <FLIP TINSLEY - Last Filed: 05/26/17 16:49> - Discharge Admitting Provider: Laisha Unit Admitted: [facility] <WALE GRANGER - Last Filed: 05/26/17 17:13> - Discharge Clinical Impression: Sepsis Qualifiers: Sepsis type: sepsis due to unspecified organism Qualified Code(s): A41.9 - Sepsis, unspecified organism UTI (urinary tract infection) Qualifiers: Urinary tract infection type: acute cystitis Hematuria presence: without hematuria Qualified Code(s): N30.00 - Acute cystitis without hematuria Altered mental status Qualifiers: Altered mental status type: somnolence Qualified Code(s): R40.0 - Somnolence Condition: Fair Disposition: ADMITTED INPATIENT Referrals: BRAD GIVENS MD [Primary Care Provider] - Follow up as needed Scribe Documentation - Scribe Written by Scribe:: Nyla Ruano, 05/26/2017 1524 acting as scribe for :: Olya <FLIP TINSLEY - Last Filed: 05/26/17 16:49>
[2017-05-26 15:25] LABS: VENOUS BLOOD BASE EXCESS -1.1 mmol/L; VENOUS BLOOD HCO3 24.6 mmol/L (20-32); VENOUS BLOOD PCO2 44.8 mmHg (35-63); VENOUS BLOOD PH 7.36 (7.30-7.42)
[2017-05-26 16:23] LABS: AMORPHOUS SEDIMENT,URINE TRACE /HPF; APPEARANCE,URINE CLOUDY; BILIRUBIN,URINE NEGATIVE (NEGATIVE); GLUCOSE, URINE NEGATIVE (NEGATIVE); KETONES,URINE NEGATIVE (NEGATIVE); LEUKOCYTE ESTERASE,URINE MODERATE (NEGATIVE); NITRITE,URINE NEGATIVE (NEGATIVE); PROTEIN,URINE 100 mg/dL (NEGATIVE); URINE SPECIFIC GRAVITY 1.013
--- NOTE | 2017-05-26 18:18 | EKG REPORT ---
SEVERITY:- ABNORMAL ECG - SINUS RHYTHM CONSIDER ANTEROSEPTAL INFARCT : Confirmed by: Melony Clancy MD 26-May-2017 18:18:06
[2017-05-26] MEDS ORDERED: CHLORPHENIRAMINE MALEATE 4 MG TABLET PO PRN (20:14)
[2017-05-26] MEDS ORDERED: INSULIN LISPRO 100 UNIT/ML 3 ML VIAL SUBCUT PRN (20:25)
[2017-05-26] MEDS ORDERED: GLUCAGON,HUMAN RECOMB 1 MG INJ IM PRN ×2 (20:25→20:28)
[2017-05-26] MEDS ORDERED: DEXTROSE 50%-WATER SYRINGE 25 GM/50 ML DOSE IV PRN (20:25)
[2017-05-26] MEDS ORDERED: DEXTROSE 40% GEL 15 GM TUBE PO PRN ×3 (20:25→20:28)
[2017-05-26] MEDS ORDERED: DEXTROSE 50%-WATER SYRINGE 12.5 GM/25 ML DOSE IV PRN (20:25)
[2017-05-26] MEDS ORDERED: DEXTROSE 40% GEL 15 GM TUBE X 2 PO PRN (20:25)
[2017-05-26] MEDS ORDERED: DEXTROSE 50%-WATER 25 GM/50 ML DISP.SYRIN IV PRN ×2 (20:28)
[2017-05-26 21:36] LABS: PROTHROMBIN TIME 14.6 SEC (11.4-15.4)
[2017-05-26 21:37] LABS: PARTIAL THROMBOPLASTIN TIME 32.2 SEC (23.5-35.8)
[2017-05-26 21:51] LABS: MAGNESIUM 1.6 mg/dL (1.6-2.3); PHOSPHORUS 4.7 mg/dL (2.5-4.5)
[2017-05-26] MEDS ORDERED: (PENDING PHARMACY ID) (Doxepin Hcl [Doxepin Hcl] 75 MG) PO SCH (22:00)
[2017-05-26 22:13] LABS: CREATINE KINASE MB 0.96 ng/mL (<4.55)
[2017-05-26 22:14] LABS: TROPONIN I < 0.012 ng/mL
[2017-05-26 22:23] LABS: THYROID STIMULATING HORMONE 1.7 uIU/mL (0.47-4.68)
[2017-05-26] MEDS: HEPARIN SOD (PORCINE) 5,000 UNIT/ML 1 ML SYRINGE SUBCUT SCH (22:45)
[2017-05-26] MEDS: LISINOPRIL 10 MG TABLET PO SCH (23:05)
[2017-05-26] MEDS: TOPIRAMATE 100 MG TABLET PO SCH (23:06)
[2017-05-26] MEDS: MONTELUKAST SODIUM 10 MG TABLET PO SCH (23:06)
[2017-05-26] MEDS: ATORVASTATIN CALCIUM 20 MG TABLET PO SCH (23:06)
[2017-05-26] MEDS: DULOXETINE HCL 30 MG CAPSULE.DR PO SCH (23:06)
[2017-05-26] MEDS: DOXEPIN HCL 25 MG CAPSULE PO SCH (23:06)
[2017-05-26] MEDS: CEFTRIAXONE 1 GM/D5W RTU 1 GM/50 ML RTUPB IV SCH (23:07)
[2017-05-26] MEDS: INSULIN GLARGINE,HUM.REC.ANLOG 300 UNIT/3 ML INSULN.PEN SUBCUT SCH (23:34)
[2017-05-27 00:15] LABS: URINE BARBITURATES SCREEN NEGATIVE; URINE METHADONE SCREEN NEGATIVE; URINE PHENCYCLIDINE SCREEN NEGATIVE
[2017-05-27 00:35] LABS: URINE OPIATES LOW UNCONFIRMED POSITIVE
[2017-05-27 03:06] LABS: ABSOLUTE EOSINOPHILS # (AUTO) 0.2 10^3/uL (0.0-0.6); ABSOLUTE LYMPHOCYTES (AUTO) 1.1 10^3/uL (0.5-4.7); ABSOLUTE MONOCYTES (AUTO) 0.8 10^3/uL (0.1-1.4); BASOPHILS % (AUTO) 0.2 % (0-2); EOSINOPHILS % (AUTO) 1.2 % (0-6); HEMATOCRIT 28.3 % (36.0-47.0); HEMOGLOBIN 9.6 g/dL (12.0-15.5); HGB HCT DIFFERENCE 0.5; LYMPHOCYTES % (AUTO) 8.7 % (13-45); MEAN CORPUSCULAR HEMOGLOBIN 31.6 pg (27.0-33.4); MEAN CORPUSCULAR HGB CONC 33.9 g/dL (32.0-36.0); MEAN CORPUSCULAR VOLUME 93 fl (80-97); MONOCYTES % (AUTO) 6.3 % (3-13); RED BLOOD COUNT 3.03 10^6/uL (3.72-5.28); RED CELL DISTRIBUTION WIDTH 14.6 % (11.5-14.0); SEGMENTED NEUTROPHILS % (AUTO) 83.6 % (42-78); WHITE BLOOD COUNT 13.1 10^3/uL (4.0-10.5)
[2017-05-27 03:26] LABS: ALANINE AMINOTRANSFERASE 29 U/L (9-52); ALBUMIN 2.6 g/dL (3.5-5.0); ALKALINE PHOSPHATASE 95 U/L (38-126); ANION GAP 10 (5-19); ASPARTATE AMINO TRANSFERASE 19 U/L (14-36); BILIRUBIN,DIRECT 0.4 mg/dL (0.0-0.4); BILIRUBIN,TOTAL 0.4 mg/dL (0.2-1.3); BLOOD UREA NITROGEN 30 mg/dL (7-20); CALCIUM 8.4 mg/dL (8.4-10.2); CARBON DIOXIDE 24 mmol/L (22-30); CHLORIDE 109 mmol/L (98-107); CHOLESTEROL 76.38 mg/dL (0-200); CREATININE RESULT 1.36 mg/dL (0.52-1.25); Direct HDL 40 mg/dL (>40); GLUCOSE 183 mg/dL (75-110); POTASSIUM 3.9 mmol/L (3.6-5.0); SODIUM 142.8 mmol/L (137-145); TOTAL PROTEIN 5.4 g/dL (6.3-8.2); TRIGLYCERIDES 55 mg/dL (<150)
[2017-05-27 03:30] LABS: CREATINE KINASE MB 0.79 ng/mL (<4.55)
[2017-05-27 03:31] LABS: TROPONIN I < 0.012 ng/mL
[2017-05-27 03:38] LABS: DIRECT LDL < 30 mg/dL (<100)
[2017-05-27] MEDS: LANSOPRAZOLE 30 MG TAB.RAP.DR PO SCH (06:40)
[2017-05-27] MEDS: HEPARIN SOD (PORCINE) 5,000 UNIT/ML 1 ML SYRINGE SUBCUT SCH ×3 (06:40→22:38)
[2017-05-27] MEDS: LEVOTHYROXINE SODIUM 0.15 MG TABLET PO SCH (08:28)
[2017-05-27] MEDS: SITAGLIPTIN PHOSPHATE 50 MG TABLET PO SCH (09:31)
[2017-05-27] MEDS: AMLODIPINE BESYLATE 5 MG TABLET PO SCH (09:31)
[2017-05-27] MEDS: DULOXETINE HCL 30 MG CAPSULE.DR PO SCH ×2 (09:31→22:39)
[2017-05-27] MEDS: LISINOPRIL 10 MG TABLET PO SCH ×2 (09:32→22:40)
[2017-05-27] MEDS: METOPROLOL SUCCINATE 50 MG TAB.SR.24H PO SCH (09:32)
[2017-05-27] MEDS: TOPIRAMATE 100 MG TABLET PO SCH ×2 (09:32→22:40)
[2017-05-27] MEDS ORDERED: (PENDING PHARMACY ID) (Metoprolol Succinate [Toprol Xl 200 Mg Tablet] 200 MG) PO SCH (10:00)
[2017-05-27] MEDS ORDERED: (PENDING PHARMACY ID) (Mirabegron [Myrbetriq] 50 MG) PO SCH (10:00)
[2017-05-27 10:25] LABS: CREATINE KINASE MB 0.71 ng/mL (<4.55)
[2017-05-27 10:32] LABS: TROPONIN I < 0.012 ng/mL
[2017-05-27] MEDS ORDERED: INFLUENZA ADLT QUAD (36MOS+) 2017-18 VAC 0.5 ML SYR IM PRN (11:44)
--- NOTE | 2017-05-27 16:22 | PDOC H&P ---
History of Present Illness Admission Date/PCP: 05/26/17 20:19 BRAD GIVENS MD History of Present Illness: ONDINA ENRIQUEZ is a 71 year old female she has a history of chronic kidney disease stage III, type 2 diabetes mellitus, morbid obesity she could emergency room for evaluation of excessive somnolence, shortness of breath, the history is not very clear but in the emergency room she was evaluated she was found to have leukocytosis, WBC was 17.6 thousand, she has abnormal urinalysis, positive leukocyte esterase, bacteriuria. She has a history of recurrent UTI associated with metabolic encephalopathy.. When I spoke to patient she admitted to falling but she did not sustain any fracture, the mechanism of the fall is not clear. She was evaluated in the emergency room, sepsis was suspected and hospital admission was advised Past Medical History Cardiac Medical History: Reports: Hyperlipidema, Hypertension Pulmonary Medical History: Reports: Asthma Endocrine Medical History: Reports: Diabetes Mellitus Type 2, Hypothyroidism GI Medical History: Reports: Gastroesophageal Reflux Disease Musculoskeltal Medical History: Reports: Arthritis Psychiatric Medical History: Reports: Depression Hematology: Reports: Anemia Past Surgical History Past Surgical History: Reports: Cholecystectomy, Hysterectomy, Orthopedic Surgery Social History Lives with: Family Smoking Status: Never Smoker Frequency of Alcohol Use: None Hx Recreational Drug Use: No Drugs: None Hx Prescription Drug Abuse: No - Advance Directive Resuscitation Status: Full Code Family History Family History: Reviewed & Not Pertinent Parental Family History Reviewed: Yes Children Family History Reviewed: Yes Sibling(s) Family History Reviewed.: Yes Medication/Allergy Home Medications: Amlodipine Besylate [Norvasc 5 mg Tablet] 5 mg PO DAILY 05/26/17 Atorvastatin Calcium [Lipitor 20 mg Tablet] 20 mg PO QHS 05/26/17 Chlorpheniramine Maleate [Allergy] 4 mg PO Q6HP PRN 05/26/17 Dexlansoprazole [Dexilant 60 mg Capsule] 60 mg PO DAILY 05/26/17 Doxepin HCl 75 mg PO QHS 05/26/17 Duloxetine HCl [Cymbalta] 60 mg PO Q12 05/26/17 Insulin Glargine,Hum.rec.anlog [Lantus Solostar] 52 unit SQ QHS 05/26/17 Levothyroxine Sodium [Synthroid 0.15 mg Tablet] 0.15 mg PO QAM 05/26/17 Lisinopril [Prinivil 40 mg Tablet] 40 mg PO Q12 05/26/17 Metoprolol Succinate [Toprol XL 200 mg Tablet] 200 mg PO DAILY 05/26/17 Mirabegron [Myrbetriq] 50 mg PO DAILY 05/26/17 Montelukast Sodium [Singulair 10 mg Tablet] 10 mg PO QHS 05/26/17 Sitagliptin Phosphate [Januvia] 100 mg PO DAILY 05/26/17 Topiramate [Topamax 100 Mg Tablet] 100 mg PO Q12 05/26/17 Allergies/Adverse Reactions: aspirin [Aspirin] Allergy (Verified 05/26/17 12:27) Edema, GI UPSET morphine [Morphine] Allergy (Verified 05/26/17 12:27) ANAPHYLAXSIS, Facial swelling Review of Systems Constitutional: PRESENT: chills, fatigue Cardiovascular: PRESENT: dyspnea on exertion Respiratory: PRESENT: dyspnea. ABSENT: as per HPI, cough, hemoptysis, sputum, other Gastrointestinal: ABSENT: abdominal pain, constipation, diarrhea, hematemesis, hematochezia, nausea, vomiting Genitourinary: ABSENT: dysuria, hematuria Musculoskeletal: ABSENT: joint swelling Integumentary: ABSENT: rash, wounds Neurological: ABSENT: abnormal gait, abnormal speech, confusion, dizziness, focal weakness, syncope Psychiatric: ABSENT: anxiety, depression, homidical ideation, suicidal ideation Endocrine: ABSENT: cold intolerance, heat intolerance, menstrual abnormalities, polydipsia, polyuria Hematologic/Lymphatic: ABSENT: easy bleeding, easy bruising, lymphadenopathy Physical Exam Vital Signs: Temp Pulse Resp BP Pulse Ox 98.9 F 67 20 136/63 H 98 05/27/17 15:31 05/27/17 15:31 05/27/17 15:31 05/27/17 15:31 05/27/17 15:31 Intake & Output 05/26/17 05/27/17 05/28/17 06:59 06:59 06:59 Intake Total 405 591 Balance 405 591 Weight 143.3 kg 143.3 kg General appearance: PRESENT: morbidly obese Head exam: PRESENT: atraumatic, normocephalic Eye exam: PRESENT: conjunctiva pink, EOMI, PERRLA Ear exam: PRESENT: normal external ear exam Mouth exam: PRESENT: moist, tongue midline Neck exam: PRESENT: full ROM Respiratory exam: PRESENT: clear to auscultation carter Cardiovascular exam: PRESENT: RRR, +S1, +S2 Pulses: PRESENT: normal dorsalis pedis pul, +2 pedal pulses bilateral Vascular exam: PRESENT: normal capillary refill GI/Abdominal exam: PRESENT: normal bowel sounds, soft Rectal exam: PRESENT: deferred Neurological exam: PRESENT: alert, CN II-XII grossly intact Psychiatric exam: PRESENT: appropriate affect, normal mood Skin exam: PRESENT: dry, intact, warm Results Laboratory Results: 05/27/17 02:58 05/27/17 02:58 05/26/17 05/26/17 05/26/17 21:00 21:00 21:00 WBC RBC Hgb Hct MCV MCH MCHC RDW Plt Count Seg Neutrophils % Lymphocytes % Monocytes % Eosinophils % Basophils % Absolute Neutrophils Absolute Lymphocytes Absolute Monocytes Absolute Eosinophils Absolute Basophils Sodium Potassium Chloride Carbon Dioxide Anion Gap BUN Creatinine Est GFR ( Amer) Est GFR (Non-Af Amer) Glucose Calcium Phosphorus 4.7 H Magnesium 1.6 Total Bilirubin AST ALT Alkaline Phosphatase Ammonia 12.9 Total Protein Albumin Triglycerides Cholesterol LDL Cholesterol Direct VLDL Cholesterol HDL Cholesterol Amylase 31 Lipase 59.0 TSH 1.70 Free T4 1.21 05/27/17 05/27/17 02:58 02:58 WBC 13.1 H RBC 3.03 L Hgb 9.6 L Hct 28.3 L MCV 93 MCH 31.6 MCHC 33.9 RDW 14.6 H Plt Count 168 Seg Neutrophils % 83.6 H Lymphocytes % 8.7 L Monocytes % 6.3 Eosinophils % 1.2 Basophils % 0.2 Absolute Neutrophils 11.0 H Absolute Lymphocytes 1.1 Absolute Monocytes 0.8 Absolute Eosinophils 0.2 Absolute Basophils 0.0 Sodium 142.8 Potassium 3.9 Chloride 109 H Carbon Dioxide 24 Anion Gap 10 BUN 30 H Creatinine 1.36 H Est GFR ( Amer) 46 L Est GFR (Non-Af Amer) 38 L Glucose 183 H Calcium 8.4 Phosphorus Magnesium Total Bilirubin 0.4 AST 19 ALT 29 Alkaline Phosphatase 95 Ammonia Total Protein 5.4 L Albumin 2.6 L Triglycerides 55 Cholesterol 76.38 LDL Cholesterol Direct < 30 VLDL Cholesterol 11.0 HDL Cholesterol 40 Amylase Lipase TSH Free T4 05/26/17 05/26/17 05/26/17 21:00 21:00 21:00 Creatine Kinase 216 H CK-MB (CK-2) 0.96 Troponin I < 0.012 NT-Pro-B Natriuret Pep 464 05/27/17 05/27/17 05/27/17 02:58 02:58 09:45 Creatine Kinase 189 H 167 H CK-MB (CK-2) 0.79 Troponin I < 0.012 NT-Pro-B Natriuret Pep 05/27/17 09:45 Creatine Kinase CK-MB (CK-2) 0.71 Troponin I < 0.012 NT-Pro-B Natriuret Pep Impressions: Chest X-Ray 05/26/17 12:41 IMPRESSION: NO ACUTE RADIOGRAPHIC FINDING IN THE CHEST. Assessment & Plan - Diagnosis (1) Urinary tract infection Qualifiers: Hematuria presence: without hematuria Is this a current diagnosis for this admission?: Yes (2) Metabolic encephalopathy Is this a current diagnosis for this admission?: Yes (3) Chronic kidney disease, stage 3 Is this a current diagnosis for this admission?: Yes (4) Morbid obesity Is this a current diagnosis for this admission?: Yes (5) Type 2 diabetes mellitus with diabetic polyneuropathy Qualifiers: Diabetes mellitus terminal operator insulin use: with shelter use Qualified Code( s): E11.42 - Type 2 diabetes mellitus with diabetic polyneuropathy Is this a current diagnosis for this admission?: Yes - Plan Summary Plan Summary: Patient is admitted to the hospital, she will be treated with IV antibiotic, hydration
--- NOTE | 2017-05-27 16:43 | PDOC PROGRESS REPORT ---
Subjective Progress Note for:: 05/27/17 Subjective:: She was admitted yesterday when she presented with UTI, encephalopathy, she was seen by the bedside she is alert and oriented today Physical Exam Vital Signs: Temp Pulse Resp BP Pulse Ox 98.9 F 67 20 136/63 H 98 05/27/17 15:31 05/27/17 15:31 05/27/17 15:31 05/27/17 15:31 05/27/17 15:31 Intake & Output 05/26/17 05/27/17 05/28/17 06:59 06:59 06:59 Intake Total 405 591 Balance 405 591 Weight 143.3 kg 143.3 kg General appearance: PRESENT: no acute distress Eye exam: PRESENT: PERRLA Respiratory exam: PRESENT: clear to auscultation carter Cardiovascular exam: PRESENT: +S1, +S2 GI/Abdominal exam: PRESENT: soft Results Laboratory Results: 05/27/17 02:58 05/27/17 02:58 05/26/17 05/26/17 05/26/17 21:00 21:00 21:00 WBC RBC Hgb Hct MCV MCH MCHC RDW Plt Count Seg Neutrophils % Lymphocytes % Monocytes % Eosinophils % Basophils % Absolute Neutrophils Absolute Lymphocytes Absolute Monocytes Absolute Eosinophils Absolute Basophils Sodium Potassium Chloride Carbon Dioxide Anion Gap BUN Creatinine Est GFR ( Amer) Est GFR (Non-Af Amer) Glucose Calcium Phosphorus 4.7 H Magnesium 1.6 Total Bilirubin AST ALT Alkaline Phosphatase Ammonia 12.9 Total Protein Albumin Triglycerides Cholesterol LDL Cholesterol Direct VLDL Cholesterol HDL Cholesterol Amylase 31 Lipase 59.0 TSH 1.70 Free T4 1.21 05/27/17 05/27/17 02:58 02:58 WBC 13.1 H RBC 3.03 L Hgb 9.6 L Hct 28.3 L MCV 93 MCH 31.6 MCHC 33.9 RDW 14.6 H Plt Count 168 Seg Neutrophils % 83.6 H Lymphocytes % 8.7 L Monocytes % 6.3 Eosinophils % 1.2 Basophils % 0.2 Absolute Neutrophils 11.0 H Absolute Lymphocytes 1.1 Absolute Monocytes 0.8 Absolute Eosinophils 0.2 Absolute Basophils 0.0 Sodium 142.8 Potassium 3.9 Chloride 109 H Carbon Dioxide 24 Anion Gap 10 BUN 30 H Creatinine 1.36 H Est GFR ( Amer) 46 L Est GFR (Non-Af Amer) 38 L Glucose 183 H Calcium 8.4 Phosphorus Magnesium Total Bilirubin 0.4 AST 19 ALT 29 Alkaline Phosphatase 95 Ammonia Total Protein 5.4 L Albumin 2.6 L Triglycerides 55 Cholesterol 76.38 LDL Cholesterol Direct < 30 VLDL Cholesterol 11.0 HDL Cholesterol 40 Amylase Lipase TSH Free T4 05/26/17 05/26/17 05/26/17 21:00 21:00 21:00 Creatine Kinase 216 H CK-MB (CK-2) 0.96 Troponin I < 0.012 NT-Pro-B Natriuret Pep 464 05/27/17 05/27/17 05/27/17 02:58 02:58 09:45 Creatine Kinase 189 H 167 H CK-MB (CK-2) 0.79 Troponin I < 0.012 NT-Pro-B Natriuret Pep 05/27/17 09:45 Creatine Kinase CK-MB (CK-2) 0.71 Troponin I < 0.012 NT-Pro-B Natriuret Pep Impressions: Chest X-Ray 05/26/17 12:41 IMPRESSION: NO ACUTE RADIOGRAPHIC FINDING IN THE CHEST. Assessment & Plan - Diagnosis (1) Urinary tract infection Qualifiers: Hematuria presence: without hematuria Is this a current diagnosis for this admission?: Yes (2) Metabolic encephalopathy Is this a current diagnosis for this admission?: Yes (3) Chronic kidney disease, stage 3 Is this a current diagnosis for this admission?: Yes (4) Morbid obesity Is this a current diagnosis for this admission?: Yes (5) Type 2 diabetes mellitus with diabetic polyneuropathy Qualifiers: Diabetes mellitus correction insulin use: with superintendent container terminal use Qualified Code( s): E11.42 - Type 2 diabetes mellitus with diabetic polyneuropathy Is this a current diagnosis for this admission?: Yes - Plan Summary Plan Summary: Continue treatment
[2017-05-27] MEDS: HYDROCODONE/ACETAMINOPHEN 10-325 MG TABLET PO PRN (18:34)
[2017-05-27] MEDS: CEFTRIAXONE 1 GM/D5W RTU 1 GM/50 ML RTUPB IV SCH (22:38)
[2017-05-27] MEDS: DOXEPIN HCL 25 MG CAPSULE PO SCH (22:38)
[2017-05-27] MEDS: MONTELUKAST SODIUM 10 MG TABLET PO SCH (22:39)
[2017-05-27] MEDS: ATORVASTATIN CALCIUM 20 MG TABLET PO SCH (22:40)
[2017-05-27] MEDS: INSULIN GLARGINE,HUM.REC.ANLOG 300 UNIT/3 ML INSULN.PEN SUBCUT SCH (22:49)
[2017-05-28 05:55] LABS: ABSOLUTE BASOPHILS # (AUTO) 0.1 10^3/uL (0.0-0.2); ABSOLUTE EOSINOPHILS # (AUTO) 0.4 10^3/uL (0.0-0.6); ABSOLUTE LYMPHOCYTES (AUTO) 1.4 10^3/uL (0.5-4.7); ABSOLUTE MONOCYTES (AUTO) 1.1 10^3/uL (0.1-1.4); ABSOLUTE NEUT (AUTO) 7.3 10^3/uL (1.7-8.2); BASOPHILS % (AUTO) 0.8 % (0-2); EOSINOPHILS % (AUTO) 3.6 % (0-6); HEMATOCRIT 29.9 % (36.0-47.0); HGB HCT DIFFERENCE 0.1; LYMPHOCYTES % (AUTO) 14.1 % (13-45); MEAN CORPUSCULAR HEMOGLOBIN 31.4 pg (27.0-33.4); MEAN CORPUSCULAR HGB CONC 33.5 g/dL (32.0-36.0); MEAN CORPUSCULAR VOLUME 94 fl (80-97); MONOCYTES % (AUTO) 10.7 % (3-13); RED BLOOD COUNT 3.18 10^6/uL (3.72-5.28); RED CELL DISTRIBUTION WIDTH 14.7 % (11.5-14.0); SEGMENTED NEUTROPHILS % (AUTO) 70.8 % (42-78); WHITE BLOOD COUNT 10.3 10^3/uL (4.0-10.5)
[2017-05-28 06:10] LABS: ALANINE AMINOTRANSFERASE 29 U/L (9-52); ALBUMIN 2.7 g/dL (3.5-5.0); ALKALINE PHOSPHATASE 94 U/L (38-126); ANION GAP 12 (5-19); ASPARTATE AMINO TRANSFERASE 22 U/L (14-36); BILIRUBIN,DIRECT 0.3 mg/dL (0.0-0.4); BILIRUBIN,TOTAL 0.4 mg/dL (0.2-1.3); BLOOD UREA NITROGEN 34 mg/dL (7-20); CALCIUM 8.6 mg/dL (8.4-10.2); CARBON DIOXIDE 23 mmol/L (22-30); CHLORIDE 108 mmol/L (98-107); CREATININE RESULT 1.43 mg/dL (0.52-1.25); GLUCOSE 66 mg/dL (75-110); POTASSIUM 4.2 mmol/L (3.6-5.0); SODIUM 142.7 mmol/L (137-145); TOTAL PROTEIN 5.7 g/dL (6.3-8.2)
[2017-05-28] MEDS: LANSOPRAZOLE 30 MG TAB.RAP.DR PO SCH (06:53)
[2017-05-28] MEDS: HEPARIN SOD (PORCINE) 5,000 UNIT/ML 1 ML SYRINGE SUBCUT SCH ×3 (06:53→22:08)
[2017-05-28] MEDS: LEVOTHYROXINE SODIUM 0.15 MG TABLET PO SCH (08:39)
--- NOTE | 2017-05-28 09:49 | Physician Advisory Note ---
Physician Advisor ProgressNote .: Pursuant to the plan for [facility], I have reviewed the medical record for this patient. Physician Advisor Statement: Please make it clear in attending notes whether attending believes pt had "possible early sepsis, due to UTI, evidenced by fever/tachycardia despite metoprolol/leukocytosis/dropping plts since adm/ ...", as suspected by ED dr, or whether this dx has been ruled out. Thanks! CK
[2017-05-28] MEDS: DULOXETINE HCL 30 MG CAPSULE.DR PO SCH ×2 (10:18→22:08)
[2017-05-28] MEDS: TOPIRAMATE 100 MG TABLET PO SCH ×2 (10:18→22:08)
[2017-05-28] MEDS: SITAGLIPTIN PHOSPHATE 50 MG TABLET PO SCH (10:18)
[2017-05-28] MEDS: AMLODIPINE BESYLATE 5 MG TABLET PO SCH (10:19)
[2017-05-28] MEDS: METOPROLOL SUCCINATE 50 MG TAB.SR.24H PO SCH (10:19)
[2017-05-28] MEDS: LISINOPRIL 10 MG TABLET PO SCH ×2 (10:20→22:10)
[2017-05-28] MEDS: HYDROCODONE/ACETAMINOPHEN 10-325 MG TABLET PO PRN ×2 (11:51→22:14)
[2017-05-28] MEDS ORDERED: INFLUENZA ADLT QUAD (36MOS+) 2017-18 VAC 0.5 ML SYR IM PRN (14:30)
[2017-05-28] MEDS: INSULIN GLARGINE,HUM.REC.ANLOG 300 UNIT/3 ML INSULN.PEN SUBCUT SCH (22:06)
[2017-05-28] MEDS: MONTELUKAST SODIUM 10 MG TABLET PO SCH (22:07)
[2017-05-28] MEDS: CEFTRIAXONE 1 GM/D5W RTU 1 GM/50 ML RTUPB IV SCH (22:09)
[2017-05-28] MEDS: ATORVASTATIN CALCIUM 20 MG TABLET PO SCH (22:10)
[2017-05-28] MEDS: DOXEPIN HCL 25 MG CAPSULE PO SCH (22:10)
--- NOTE | 2017-05-28 22:18 | PDOC PROGRESS REPORT ---
Subjective Progress Note for:: 05/28/17 Subjective:: Patient was seen by the bedside she was admitted for sepsis due to UTI. The urine culture grew Klebsiella sensitive to the present antibiotic that she is on Physical Exam Vital Signs: Temp Pulse Resp BP Pulse Ox 97.9 F 63 18 116/59 L 98 05/28/17 19:46 05/28/17 19:46 05/28/17 19:46 05/28/17 19:46 05/28/17 19:46 Intake & Output 05/27/17 05/28/17 05/29/17 06:59 06:59 06:59 Intake Total 405 2007 664 Balance 405 2007 664 Weight 143.3 kg 144.9 kg General appearance: PRESENT: no acute distress Eye exam: PRESENT: PERRLA Respiratory exam: PRESENT: clear to auscultation carter Cardiovascular exam: PRESENT: +S1, +S2 GI/Abdominal exam: PRESENT: soft Neurological exam: PRESENT: alert, CN II-XII grossly intact Results Laboratory Results: 05/28/17 04:35 05/28/17 04:35 05/28/17 05/28/17 04:35 04:35 WBC 10.3 RBC 3.18 L Hgb 10.0 L Hct 29.9 L MCV 94 MCH 31.4 MCHC 33.5 RDW 14.7 H Plt Count 163 Seg Neutrophils % 70.8 Lymphocytes % 14.1 Monocytes % 10.7 Eosinophils % 3.6 Basophils % 0.8 Absolute Neutrophils 7.3 Absolute Lymphocytes 1.4 Absolute Monocytes 1.1 Absolute Eosinophils 0.4 Absolute Basophils 0.1 Sodium 142.7 Potassium 4.2 Chloride 108 H Carbon Dioxide 23 Anion Gap 12 BUN 34 H Creatinine 1.43 H Est GFR ( Amer) 44 L Est GFR (Non-Af Amer) 36 L Glucose 66 L Calcium 8.6 Total Bilirubin 0.4 AST 22 ALT 29 Alkaline Phosphatase 94 Total Protein 5.7 L Albumin 2.7 L 05/26/17 05/26/17 05/26/17 21:00 21:00 21:00 Creatine Kinase 216 H CK-MB (CK-2) 0.96 Troponin I < 0.012 NT-Pro-B Natriuret Pep 464 05/27/17 05/27/17 05/27/17 02:58 02:58 09:45 Creatine Kinase 189 H 167 H CK-MB (CK-2) 0.79 Troponin I < 0.012 NT-Pro-B Natriuret Pep 05/27/17 09:45 Creatine Kinase CK-MB (CK-2) 0.71 Troponin I < 0.012 NT-Pro-B Natriuret Pep Impressions: Chest X-Ray 05/26/17 12:41 IMPRESSION: NO ACUTE RADIOGRAPHIC FINDING IN THE CHEST. Assessment & Plan - Diagnosis (1) Urinary tract infection Qualifiers: Hematuria presence: without hematuria Is this a current diagnosis for this admission?: Yes (2) Metabolic encephalopathy Is this a current diagnosis for this admission?: Yes (3) Chronic kidney disease, stage 3 Is this a current diagnosis for this admission?: Yes (4) Morbid obesity Is this a current diagnosis for this admission?: Yes (5) Type 2 diabetes mellitus with diabetic polyneuropathy Qualifiers: Diabetes mellitus bed bug exterminator insulin use: with halfway use Qualified Code( s): E11.42 - Type 2 diabetes mellitus with diabetic polyneuropathy Is this a current diagnosis for this admission?: Yes (6) Sepsis Qualifiers: Sepsis type: sepsis due to unspecified organism Qualified Code(s): A41.9 - Sepsis, unspecified organism Is this a current diagnosis for this admission?: Yes (7) Urinary tract infection due to Klebsiella species Is this a current diagnosis for this admission?: Yes Plan: Continue ceftriaxone
[2017-05-29 05:16] LABS: ABSOLUTE BASOPHILS # (AUTO) 0.1 10^3/uL (0.0-0.2); ABSOLUTE EOSINOPHILS # (AUTO) 0.4 10^3/uL (0.0-0.6); ABSOLUTE LYMPHOCYTES (AUTO) 1.4 10^3/uL (0.5-4.7); ABSOLUTE MONOCYTES (AUTO) 0.7 10^3/uL (0.1-1.4); ABSOLUTE NEUT (AUTO) 6.6 10^3/uL (1.7-8.2); BASOPHILS % (AUTO) 1.2 % (0-2); EOSINOPHILS % (AUTO) 3.9 % (0-6); HEMATOCRIT 34.2 % (36.0-47.0); HEMOGLOBIN 11.3 g/dL (12.0-15.5); HGB HCT DIFFERENCE -0.3; LYMPHOCYTES % (AUTO) 15.1 % (13-45); MEAN CORPUSCULAR HEMOGLOBIN 31.6 pg (27.0-33.4); MEAN CORPUSCULAR HGB CONC 33.2 g/dL (32.0-36.0); MEAN CORPUSCULAR VOLUME 95 fl (80-97); MONOCYTES % (AUTO) 7.5 % (3-13); RED BLOOD COUNT 3.59 10^6/uL (3.72-5.28); RED CELL DISTRIBUTION WIDTH 14.6 % (11.5-14.0); SEGMENTED NEUTROPHILS % (AUTO) 72.3 % (42-78); WHITE BLOOD COUNT 9.1 10^3/uL (4.0-10.5)
[2017-05-29 05:22] LABS: ALANINE AMINOTRANSFERASE 27 U/L (9-52); ALBUMIN 3.4 g/dL (3.5-5.0); ALKALINE PHOSPHATASE 111 U/L (38-126); ANION GAP 11 (5-19); ASPARTATE AMINO TRANSFERASE 22 U/L (14-36); BILIRUBIN,DIRECT 0.3 mg/dL (0.0-0.4); BILIRUBIN,TOTAL 0.3 mg/dL (0.2-1.3); BLOOD UREA NITROGEN 38 mg/dL (7-20); CALCIUM 8.8 mg/dL (8.4-10.2); CARBON DIOXIDE 26 mmol/L (22-30); CHLORIDE 105 mmol/L (98-107); CREATININE RESULT 1.78 mg/dL (0.52-1.25); GLUCOSE 106 mg/dL (75-110); POTASSIUM 4.2 mmol/L (3.6-5.0); SODIUM 141.7 mmol/L (137-145)
[2017-05-29] MEDS: LANSOPRAZOLE 30 MG TAB.RAP.DR PO SCH (06:08)
[2017-05-29] MEDS: HEPARIN SOD (PORCINE) 5,000 UNIT/ML 1 ML SYRINGE SUBCUT SCH ×3 (06:08→22:05)
[2017-05-29] MEDS: LEVOTHYROXINE SODIUM 0.15 MG TABLET PO SCH (07:53)
[2017-05-29] MEDS: DULOXETINE HCL 30 MG CAPSULE.DR PO SCH ×2 (09:24→22:05)
[2017-05-29] MEDS: METOPROLOL SUCCINATE 50 MG TAB.SR.24H PO SCH (09:25)
[2017-05-29] MEDS: SITAGLIPTIN PHOSPHATE 50 MG TABLET PO SCH (09:26)
[2017-05-29] MEDS: AMLODIPINE BESYLATE 5 MG TABLET PO SCH (09:27)
[2017-05-29] MEDS: LISINOPRIL 10 MG TABLET PO SCH ×2 (09:27→22:04)
[2017-05-29] MEDS: TOPIRAMATE 100 MG TABLET PO SCH ×2 (09:27→22:04)
[2017-05-29] MEDS: HYDROCODONE/ACETAMINOPHEN 10-325 MG TABLET PO PRN ×2 (10:09→19:56)
[2017-05-29] MEDS: INSULIN REG, HUMAN 100 UNIT/ML 3 ML VIAL (PYX) SUBCUT PRN (17:28)
--- NOTE | 2017-05-29 20:53 | PDOC PROGRESS REPORT ---
Subjective Progress Note for:: 05/29/17 Subjective:: Patient was seen by the bedside, she was admitted for the management of sepsis due to UTI. Physical Exam Vital Signs: Temp Pulse Resp BP Pulse Ox 97.8 F 59 L 20 119/74 100 05/29/17 19:42 05/29/17 19:42 05/29/17 19:42 05/29/17 19:42 05/29/17 19:42 Intake & Output 05/28/17 05/29/17 05/30/17 06:59 06:59 06:59 Intake Total 2007 1676 1050 Output Total 500 Balance 2007 1676 550 Weight 144.9 kg 144.6 kg General appearance: PRESENT: no acute distress, morbidly obese Head exam: PRESENT: atraumatic, normocephalic Eye exam: PRESENT: PERRLA Cardiovascular exam: PRESENT: RRR, +S1, +S2 Vascular exam: PRESENT: normal capillary refill GI/Abdominal exam: PRESENT: normal bowel sounds, soft Neurological exam: PRESENT: alert Results Laboratory Results: 05/29/17 04:15 05/29/17 04:15 05/29/17 05/29/17 04:15 04:15 WBC 9.1 RBC 3.59 L Hgb 11.3 L Hct 34.2 L MCV 95 MCH 31.6 MCHC 33.2 RDW 14.6 H Plt Count 203 Seg Neutrophils % 72.3 Lymphocytes % 15.1 Monocytes % 7.5 Eosinophils % 3.9 Basophils % 1.2 Absolute Neutrophils 6.6 Absolute Lymphocytes 1.4 Absolute Monocytes 0.7 Absolute Eosinophils 0.4 Absolute Basophils 0.1 Sodium 141.7 Potassium 4.2 Chloride 105 Carbon Dioxide 26 Anion Gap 11 BUN 38 H Creatinine 1.78 H Est GFR ( Amer) 34 L Est GFR (Non-Af Amer) 28 L Glucose 106 Calcium 8.8 Total Bilirubin 0.3 AST 22 ALT 27 Alkaline Phosphatase 111 Total Protein 7.0 Albumin 3.4 L 05/26/17 05/26/17 05/26/17 21:00 21:00 21:00 Creatine Kinase 216 H CK-MB (CK-2) 0.96 Troponin I < 0.012 NT-Pro-B Natriuret Pep 464 05/27/17 05/27/17 05/27/17 02:58 02:58 09:45 Creatine Kinase 189 H 167 H CK-MB (CK-2) 0.79 Troponin I < 0.012 NT-Pro-B Natriuret Pep 05/27/17 09:45 Creatine Kinase CK-MB (CK-2) 0.71 Troponin I < 0.012 NT-Pro-B Natriuret Pep Impressions: Chest X-Ray 05/26/17 12:41 IMPRESSION: NO ACUTE RADIOGRAPHIC FINDING IN THE CHEST. Assessment & Plan - Diagnosis (1) Urinary tract infection Qualifiers: Hematuria presence: without hematuria Is this a current diagnosis for this admission?: Yes (2) Metabolic encephalopathy Is this a current diagnosis for this admission?: Yes (3) Chronic kidney disease, stage 3 Is this a current diagnosis for this admission?: Yes (4) Morbid obesity Is this a current diagnosis for this admission?: Yes (5) Type 2 diabetes mellitus with diabetic polyneuropathy Qualifiers: Diabetes mellitus rn long term care insulin use: with jail use Qualified Code( s): E11.42 - Type 2 diabetes mellitus with diabetic polyneuropathy Is this a current diagnosis for this admission?: Yes (6) Sepsis Qualifiers: Sepsis type: sepsis due to unspecified organism Qualified Code(s): A41.9 - Sepsis, unspecified organism Is this a current diagnosis for this admission?: Yes (7) Urinary tract infection due to Klebsiella species Is this a current diagnosis for this admission?: Yes - Plan Summary Plan Summary: She will continue present treatment including IV antibiotic, IV fluids
[2017-05-29] MEDS: ATORVASTATIN CALCIUM 20 MG TABLET PO SCH (22:04)
[2017-05-29] MEDS: CEFTRIAXONE 1 GM/D5W RTU 1 GM/50 ML RTUPB IV SCH (22:05)
[2017-05-29] MEDS: MONTELUKAST SODIUM 10 MG TABLET PO SCH (22:05)
[2017-05-29] MEDS: INSULIN GLARGINE,HUM.REC.ANLOG 300 UNIT/3 ML INSULN.PEN SUBCUT SCH (22:05)
[2017-05-29] MEDS: DOXEPIN HCL 25 MG CAPSULE PO SCH (22:05)
[2017-05-30] MEDS: HEPARIN SOD (PORCINE) 5,000 UNIT/ML 1 ML SYRINGE SUBCUT SCH ×3 (06:00→23:08)
[2017-05-30] MEDS: LANSOPRAZOLE 30 MG TAB.RAP.DR PO SCH (06:00)
--- NOTE | 2017-05-30 10:29 | PDOC PROGRESS REPORT ---
Subjective Progress Note for:: 05/30/17 Subjective:: Patient is currently doing fair. No other events happens overnight. Patient was admitted because of the urinary tract infections and metabolic encephalopathy Physical Exam Vital Signs: Temp Pulse Resp BP Pulse Ox 97.6 F 61 20 164/77 H 99 05/30/17 07:58 05/30/17 07:58 05/30/17 07:58 05/30/17 07:58 05/30/17 07:58 Intake & Output 05/29/17 05/30/17 05/31/17 06:59 06:59 06:59 Intake Total 1676 1300 Output Total 500 Balance 1676 800 Weight 144.6 kg 143 kg General appearance: PRESENT: no acute distress Eye exam: PRESENT: PERRLA Mouth exam: PRESENT: dry mucosa Neck exam: ABSENT: carotid bruit, full ROM, JVD, lymphadenopathy, meningismus, tenderness, thyromegaly, tracheal deviation, tracheostomy, other Respiratory exam: PRESENT: clear to auscultation carter Cardiovascular exam: PRESENT: +S1, +S2 GI/Abdominal exam: PRESENT: normal bowel sounds, soft Extremities exam: PRESENT: pedal edema Neurological exam: PRESENT: alert, awake Skin exam: PRESENT: dry Results Laboratory Results: 05/29/17 04:15 05/29/17 04:15 05/26/17 05/26/17 05/26/17 21:00 21:00 21:00 Creatine Kinase 216 H CK-MB (CK-2) 0.96 Troponin I < 0.012 NT-Pro-B Natriuret Pep 464 05/27/17 05/27/17 05/27/17 02:58 02:58 09:45 Creatine Kinase 189 H 167 H CK-MB (CK-2) 0.79 Troponin I < 0.012 NT-Pro-B Natriuret Pep 05/27/17 09:45 Creatine Kinase CK-MB (CK-2) 0.71 Troponin I < 0.012 NT-Pro-B Natriuret Pep Impressions: Chest X-Ray 05/26/17 12:41 IMPRESSION: NO ACUTE RADIOGRAPHIC FINDING IN THE CHEST. Assessment & Plan - Diagnosis (1) Urinary tract infection Qualifiers: Urinary tract infection type: acute cystitis Hematuria presence: without hematuria Qualified Code(s): N30.00 - Acute cystitis without hematuria Is this a current diagnosis for this admission?: Yes Plan: IV antibiotic (2) Chronic kidney disease, stage 3 Is this a current diagnosis for this admission?: Yes Plan: We will repeat the blood work in the morning (3) Metabolic encephalopathy Is this a current diagnosis for this admission?: Yes Plan: Currently all improving (4) Morbid obesity Is this a current diagnosis for this admission?: Yes (5) Hypertension Qualifiers: Hypertension type: essential hypertension Qualified Code(s): I10 - Essential (primary) hypertension Is this a current diagnosis for this admission?: Yes Plan: Currently stable (6) Obesity Qualifiers: Obesity type: unspecified obesity type (7) Type 2 diabetes mellitus Qualifiers: Diabetes mellitus complication status: with unspecified complications Is this a current diagnosis for this admission?: Yes Plan: Continues to sliding scale - Time Time Spent with patient: 15-24 minutes Medications reviewed and adjusted accordingly: Yes Within: Other - Inpatient Certification Medical Necessity: Need Close Monitoring Due to Risk of Patient Decompensation, Need for IV Antibiotics Post Hospital Care: D/C Tier And Detonator Documentation - Plan Summary Plan Summary: no Change in current medications current medications
[2017-05-30] MEDS: TOPIRAMATE 100 MG TABLET PO SCH ×2 (11:05→23:08)
[2017-05-30] MEDS: LISINOPRIL 10 MG TABLET PO SCH ×2 (11:06→23:05)
[2017-05-30] MEDS: SITAGLIPTIN PHOSPHATE 50 MG TABLET PO SCH (11:07)
[2017-05-30] MEDS: AMLODIPINE BESYLATE 5 MG TABLET PO SCH (11:07)
[2017-05-30] MEDS: DULOXETINE HCL 30 MG CAPSULE.DR PO SCH ×2 (11:08→23:08)
[2017-05-30] MEDS: METOPROLOL SUCCINATE 50 MG TAB.SR.24H PO SCH (11:08)
[2017-05-30] MEDS: LEVOTHYROXINE SODIUM 0.15 MG TABLET PO SCH (11:08)
[2017-05-30] MEDS: HYDROCODONE/ACETAMINOPHEN 10-325 MG TABLET PO PRN ×2 (11:15→23:22)
[2017-05-30] MEDS: DOXEPIN HCL 25 MG CAPSULE PO SCH (23:07)
[2017-05-30] MEDS: ATORVASTATIN CALCIUM 20 MG TABLET PO SCH (23:08)
[2017-05-30] MEDS: MONTELUKAST SODIUM 10 MG TABLET PO SCH (23:08)
[2017-05-30] MEDS: INSULIN REG, HUMAN 100 UNIT/ML 3 ML VIAL (PYX) SUBCUT PRN (23:09)
[2017-05-30] MEDS: CEFTRIAXONE 1 GM/D5W RTU 1 GM/50 ML RTUPB IV SCH (23:09)
[2017-05-30] MEDS: INSULIN GLARGINE,HUM.REC.ANLOG 300 UNIT/3 ML INSULN.PEN SUBCUT SCH (23:20)
[2017-05-31] MEDS: HEPARIN SOD (PORCINE) 5,000 UNIT/ML 1 ML SYRINGE SUBCUT SCH ×3 (06:46→22:51)
[2017-05-31] MEDS: LANSOPRAZOLE 30 MG TAB.RAP.DR PO SCH (06:46)
[2017-05-31 07:19] LABS: ABSOLUTE EOSINOPHILS # (AUTO) 0.3 10^3/uL (0.0-0.6); ABSOLUTE LYMPHOCYTES (AUTO) 1.4 10^3/uL (0.5-4.7); ABSOLUTE MONOCYTES (AUTO) 0.8 10^3/uL (0.1-1.4); BASOPHILS % (AUTO) 0.5 % (0-2); EOSINOPHILS % (AUTO) 3.5 % (0-6); HEMATOCRIT 31.8 % (36.0-47.0); HEMOGLOBIN 10.5 g/dL (12.0-15.5); HGB HCT DIFFERENCE -0.3; LYMPHOCYTES % (AUTO) 16.1 % (13-45); MEAN CORPUSCULAR HEMOGLOBIN 31.2 pg (27.0-33.4); MEAN CORPUSCULAR HGB CONC 32.9 g/dL (32.0-36.0); MEAN CORPUSCULAR VOLUME 95 fl (80-97); RED BLOOD COUNT 3.35 10^6/uL (3.72-5.28); RED CELL DISTRIBUTION WIDTH 14.6 % (11.5-14.0); SEGMENTED NEUTROPHILS % (AUTO) 70.9 % (42-78); WHITE BLOOD COUNT 8.5 10^3/uL (4.0-10.5)
[2017-05-31 07:38] LABS: ANION GAP 12 (5-19); BLOOD UREA NITROGEN 39 mg/dL (7-20); CALCIUM 9.1 mg/dL (8.4-10.2); CARBON DIOXIDE 25 mmol/L (22-30); CHLORIDE 107 mmol/L (98-107); CREATININE RESULT 1.58 mg/dL (0.52-1.25); GLUCOSE 131 mg/dL (75-110); POTASSIUM 4.3 mmol/L (3.6-5.0); SODIUM 143.6 mmol/L (137-145)
[2017-05-31] MEDS: LEVOTHYROXINE SODIUM 0.15 MG TABLET PO SCH (09:35)
[2017-05-31] MEDS: METOPROLOL SUCCINATE 50 MG TAB.SR.24H PO SCH (10:33)
[2017-05-31] MEDS: LISINOPRIL 10 MG TABLET PO SCH ×2 (10:34→22:52)
[2017-05-31] MEDS: HYDROCODONE/ACETAMINOPHEN 10-325 MG TABLET PO PRN (10:34)
[2017-05-31] MEDS: DULOXETINE HCL 30 MG CAPSULE.DR PO SCH ×2 (10:34→22:52)
[2017-05-31] MEDS: TOPIRAMATE 100 MG TABLET PO SCH ×2 (10:35→22:52)
[2017-05-31] MEDS: SITAGLIPTIN PHOSPHATE 50 MG TABLET PO SCH (10:35)
[2017-05-31] MEDS: AMLODIPINE BESYLATE 5 MG TABLET PO SCH (10:35)
--- NOTE | 2017-05-31 13:29 | PDOC PROGRESS REPORT ---
Subjective Progress Note for:: 05/31/17 Subjective:: Patient is currently doing fair. No other events happens overnight. Patient was admitted because of the urinary tract infections and metabolic encephalopathy Physical Exam Vital Signs: Temp Pulse Resp BP Pulse Ox 97.8 F 53 L 18 117/63 100 05/31/17 07:56 05/31/17 07:56 05/31/17 07:56 05/31/17 07:56 05/31/17 07:56 Intake & Output 05/30/17 05/31/17 06/01/17 06:59 06:59 06:59 Intake Total 1300 1770 Output Total 500 0 Balance 800 1770 Weight 143 kg 145.4 kg General appearance: PRESENT: no acute distress, well-developed, well-nourished Head exam: PRESENT: atraumatic, normocephalic Eye exam: PRESENT: conjunctiva pink, EOMI, PERRLA. ABSENT: scleral icterus Ear exam: PRESENT: normal external ear exam Mouth exam: PRESENT: moist, tongue midline Neck exam: PRESENT: full ROM. ABSENT: carotid bruit, JVD, lymphadenopathy, thyromegaly Respiratory exam: PRESENT: clear to auscultation carter Cardiovascular exam: PRESENT: RRR. ABSENT: diastolic murmur, rubs, systolic murmur Vascular exam: PRESENT: normal capillary refill GI/Abdominal exam: PRESENT: normal bowel sounds, soft. ABSENT: distended, guarding, mass, organolmegaly, rebound, tenderness Rectal exam: PRESENT: deferred Neurological exam: PRESENT: alert, awake, oriented to person, oriented to place , oriented to time, oriented to situation. ABSENT: motor sensory deficit Psychiatric exam: PRESENT: appropriate affect, normal mood. ABSENT: homicidal ideation, suicidal ideation Skin exam: PRESENT: dry, intact, warm. ABSENT: cyanosis, rash Results Laboratory Results: 05/31/17 06:59 05/31/17 06:59 05/31/17 05/31/17 05/31/17 04:27 04:27 06:59 WBC Cancelled 8.5 RBC Cancelled 3.35 L Hgb Cancelled 10.5 L Hct Cancelled 31.8 L MCV Cancelled 95 MCH Cancelled 31.2 MCHC Cancelled 32.9 RDW Cancelled 14.6 H Plt Count Cancelled 233 Seg Neutrophils % Cancelled 70.9 Lymphocytes % Cancelled 16.1 Monocytes % Cancelled 9.0 Eosinophils % Cancelled 3.5 Basophils % Cancelled 0.5 Absolute Neutrophils Cancelled 6.0 Absolute Lymphocytes Cancelled 1.4 Absolute Monocytes Cancelled 0.8 Absolute Eosinophils Cancelled 0.3 Absolute Basophils Cancelled 0.0 Sodium Cancelled Potassium Cancelled Chloride Cancelled Carbon Dioxide Cancelled Anion Gap Cancelled BUN Cancelled Creatinine Cancelled Est GFR ( Amer) Cancelled Est GFR (Non-Af Amer) Cancelled Glucose Cancelled Calcium Cancelled 05/31/17 06:59 WBC RBC Hgb Hct MCV MCH MCHC RDW Plt Count Seg Neutrophils % Lymphocytes % Monocytes % Eosinophils % Basophils % Absolute Neutrophils Absolute Lymphocytes Absolute Monocytes Absolute Eosinophils Absolute Basophils Sodium 143.6 Potassium 4.3 Chloride 107 Carbon Dioxide 25 Anion Gap 12 BUN 39 H Creatinine 1.58 H Est GFR ( Amer) 39 L Est GFR (Non-Af Amer) 32 L Glucose 131 H Calcium 9.1 05/26/17 05/26/17 05/26/17 21:00 21:00 21:00 Creatine Kinase 216 H CK-MB (CK-2) 0.96 Troponin I < 0.012 NT-Pro-B Natriuret Pep 464 05/27/17 05/27/17 05/27/17 02:58 02:58 09:45 Creatine Kinase 189 H 167 H CK-MB (CK-2) 0.79 Troponin I < 0.012 NT-Pro-B Natriuret Pep 05/27/17 09:45 Creatine Kinase CK-MB (CK-2) 0.71 Troponin I < 0.012 NT-Pro-B Natriuret Pep Impressions: Chest X-Ray 05/26/17 12:41 IMPRESSION: NO ACUTE RADIOGRAPHIC FINDING IN THE CHEST. Assessment & Plan - Diagnosis (1) Urinary tract infection Qualifiers: Urinary tract infection type: acute cystitis Hematuria presence: without hematuria Qualified Code(s): N30.00 - Acute cystitis without hematuria Is this a current diagnosis for this admission?: Yes Plan: IV antibiotic (2) Chronic kidney disease, stage 3 Is this a current diagnosis for this admission?: Yes Plan: We will repeat the blood work in the morning (3) Metabolic encephalopathy Is this a current diagnosis for this admission?: Yes Plan: Currently all improving (4) Morbid obesity Is this a current diagnosis for this admission?: Yes (5) Hypertension Qualifiers: Hypertension type: essential hypertension Qualified Code(s): I10 - Essential (primary) hypertension Is this a current diagnosis for this admission?: Yes Plan: Currently stable (6) Obesity Qualifiers: Obesity type: unspecified obesity type (7) Type 2 diabetes mellitus Qualifiers: Diabetes mellitus complication status: with unspecified complications Is this a current diagnosis for this admission?: Yes Plan: Continues to sliding scale - Time Time Spent with patient: 15-24 minutes Medications reviewed and adjusted accordingly: Yes Anticipated discharge: Other Within: Other - Inpatient Certification Medical Necessity: Need Close Monitoring Due to Risk of Patient Decompensation Post Hospital Care: D/C Slot Machine Repairer Documentation - Plan Summary Plan Summary: Continues to current medications
[2017-05-31] MEDS: INSULIN REG, HUMAN 100 UNIT/ML 3 ML VIAL (PYX) SUBCUT PRN (22:51)
[2017-05-31] MEDS: DOXEPIN HCL 25 MG CAPSULE PO SCH (22:51)
[2017-05-31] MEDS: INSULIN GLARGINE,HUM.REC.ANLOG 300 UNIT/3 ML INSULN.PEN SUBCUT SCH (22:51)
[2017-05-31] MEDS: CEFTRIAXONE 1 GM/D5W RTU 1 GM/50 ML RTUPB IV SCH (22:51)
[2017-05-31] MEDS: ATORVASTATIN CALCIUM 20 MG TABLET PO SCH (22:52)
[2017-05-31] MEDS: MONTELUKAST SODIUM 10 MG TABLET PO SCH (22:53)
[2017-06-01 05:31] LABS: ANION GAP 12 (5-19); BLOOD UREA NITROGEN 41 mg/dL (7-20); CALCIUM 8.7 mg/dL (8.4-10.2); CARBON DIOXIDE 24 mmol/L (22-30); CHLORIDE 108 mmol/L (98-107); CREATININE RESULT 1.83 mg/dL (0.52-1.25); GLUCOSE 134 mg/dL (75-110); POTASSIUM 4.7 mmol/L (3.6-5.0); SODIUM 144.4 mmol/L (137-145)
[2017-06-01] MEDS: HEPARIN SOD (PORCINE) 5,000 UNIT/ML 1 ML SYRINGE SUBCUT SCH ×3 (06:41→21:44)
[2017-06-01] MEDS: LANSOPRAZOLE 30 MG TAB.RAP.DR PO SCH (06:41)
[2017-06-01] MEDS: SITAGLIPTIN PHOSPHATE 50 MG TABLET PO SCH (10:16)
[2017-06-01] MEDS: LEVOTHYROXINE SODIUM 0.15 MG TABLET PO SCH (10:17)
[2017-06-01] MEDS: AMLODIPINE BESYLATE 5 MG TABLET PO SCH (10:17)
[2017-06-01] MEDS: HYDROCODONE/ACETAMINOPHEN 10-325 MG TABLET PO PRN ×2 (10:17→21:49)
[2017-06-01] MEDS: DULOXETINE HCL 30 MG CAPSULE.DR PO SCH ×2 (10:17→21:48)
[2017-06-01] MEDS: LISINOPRIL 10 MG TABLET PO SCH ×2 (10:18→21:45)
[2017-06-01] MEDS: TOPIRAMATE 100 MG TABLET PO SCH ×2 (10:18→21:48)
[2017-06-01] MEDS ORDERED: METOPROLOL SUCCINATE 50 MG TAB.SR.24H PO ONE (11:15)
--- NOTE | 2017-06-01 20:39 | PDOC DISCHARGE SUMMARY ---
General - Admit/Disc Date/PCP Admission Date/Primary Care Provider: 05/26/17 20:19 BRAD GIVENS MD Discharge Date: 06/01/17 - Discharge Diagnosis (1) Urinary tract infection Is this a current diagnosis for this admission?: Yes (2) Metabolic encephalopathy Is this a current diagnosis for this admission?: Yes (3) Chronic kidney disease, stage 3 Is this a current diagnosis for this admission?: Yes (4) Morbid obesity Is this a current diagnosis for this admission?: Yes (5) Type 2 diabetes mellitus with diabetic polyneuropathy Is this a current diagnosis for this admission?: Yes (6) Sepsis Is this a current diagnosis for this admission?: Yes (7) Urinary tract infection due to Klebsiella species Is this a current diagnosis for this admission?: Yes - Additional Information Resuscitation Status: Full Code Home Medications: Amlodipine Besylate [Norvasc 5 mg Tablet] 5 mg PO DAILY 05/26/17 Atorvastatin Calcium [Lipitor 20 mg Tablet] 20 mg PO QHS 05/26/17 Chlorpheniramine Maleate [Allergy] 4 mg PO Q6HP PRN 05/26/17 Dexlansoprazole [Dexilant 60 mg Capsule] 60 mg PO DAILY 05/26/17 Doxepin HCl 75 mg PO QHS 05/26/17 Duloxetine HCl [Cymbalta] 60 mg PO Q12 05/26/17 Insulin Glargine,Hum.rec.anlog [Lantus Solostar] 52 unit SQ QHS 05/26/17 Levothyroxine Sodium [Synthroid 0.15 mg Tablet] 0.15 mg PO QAM 05/26/17 Lisinopril [Prinivil 40 mg Tablet] 40 mg PO Q12 05/26/17 Metoprolol Succinate [Toprol XL 200 mg Tablet] 200 mg PO DAILY 05/26/17 Mirabegron [Myrbetriq] 50 mg PO DAILY 05/26/17 Montelukast Sodium [Singulair 10 mg Tablet] 10 mg PO QHS 05/26/17 Sitagliptin Phosphate [Januvia] 100 mg PO DAILY 05/26/17 Topiramate [Topamax 100 mg Tablet] 100 mg PO Q12 05/26/17 History of Present Illness History of Present Illness: ONDINA ENRIQUEZ is a 71 year old female she has a history of chronic kidney disease stage III, type 2 diabetes mellitus, morbid obesity she could emergency room for evaluation of excessive somnolence, shortness of breath, the history is not very clear but in the emergency room she was evaluated she was found to have leukocytosis, WBC was 17.6 thousand, she has abnormal urinalysis, positive leukocyte esterase, bacteriuria. She has a history of recurrent UTI associated with metabolic encephalopathy.. When I spoke to patient she admitted to falling but she did not sustain any fracture, the mechanism of the fall is not clear. She was evaluated in the emergency room, sepsis was suspected and hospital admission was advised Hospital Course Hospital Course: She was admitted for the management of Klebsiella UTI associated with encephalopathy, she was treated with IV antibiotic, there was also sepsis due to UTI. She has multiple comorbid conditions including morbid obesity, chronic kidney disease stage III, diabetes mellitus type 2 Physical Exam Vital Signs: Temp Pulse Resp BP Pulse Ox 98.2 F 58 L 18 116/56 L 98 06/01/17 15:13 06/01/17 15:13 06/01/17 15:13 06/01/17 15:13 06/01/17 15:13 Intake & Output 05/31/17 06/01/17 06/02/17 06:59 06:59 06:59 Intake Total 1770 1520 1760 Output Total 0 Balance 1770 1520 1760 Weight 145.4 kg 143.4 kg General appearance: PRESENT: no acute distress, well-developed, well-nourished Head exam: PRESENT: atraumatic, normocephalic Eye exam: PRESENT: conjunctiva pink, EOMI, PERRLA Ear exam: PRESENT: normal external ear exam Mouth exam: PRESENT: moist, tongue midline Neck exam: PRESENT: full ROM Respiratory exam: PRESENT: clear to auscultation carter Cardiovascular exam: PRESENT: RRR, +S1, +S2 Pulses: PRESENT: normal dorsalis pedis pul, +2 pedal pulses bilateral Vascular exam: PRESENT: normal capillary refill GI/Abdominal exam: PRESENT: normal bowel sounds, soft Rectal exam: PRESENT: deferred Neurological exam: PRESENT: alert, CN II-XII grossly intact Psychiatric exam: PRESENT: appropriate affect, normal mood Skin exam: PRESENT: dry, intact, warm Results Laboratory Results: 05/31/17 06:59 06/01/17 03:54 06/01/17 03:54 Sodium 144.4 Potassium 4.7 Chloride 108 H Carbon Dioxide 24 Anion Gap 12 BUN 41 H Creatinine 1.83 H Est GFR ( Amer) 33 L Est GFR (Non-Af Amer) 27 L Glucose 134 H Calcium 8.7 05/26/17 05/26/17 05/26/17 21:00 21:00 21:00 Creatine Kinase 216 H CK-MB (CK-2) 0.96 Troponin I < 0.012 NT-Pro-B Natriuret Pep 464 05/27/17 05/27/17 05/27/17 02:58 02:58 09:45 Creatine Kinase 189 H 167 H CK-MB (CK-2) 0.79 Troponin I < 0.012 NT-Pro-B Natriuret Pep 05/27/17 09:45 Creatine Kinase CK-MB (CK-2) 0.71 Troponin I < 0.012 NT-Pro-B Natriuret Pep Impressions: Chest X-Ray 05/26/17 12:41 IMPRESSION: NO ACUTE RADIOGRAPHIC FINDING IN THE CHEST.
[2017-06-01] MEDS: CEFTRIAXONE 1 GM/D5W RTU 1 GM/50 ML RTUPB IV SCH (21:44)
[2017-06-01] MEDS: ATORVASTATIN CALCIUM 20 MG TABLET PO SCH (21:48)
[2017-06-01] MEDS: MONTELUKAST SODIUM 10 MG TABLET PO SCH (21:49)
[2017-06-01] MEDS: DOXEPIN HCL 25 MG CAPSULE PO SCH (21:49)
[2017-06-01] MEDS: INSULIN GLARGINE,HUM.REC.ANLOG 300 UNIT/3 ML INSULN.PEN SUBCUT SCH (22:00)
[2017-06-02] MEDS: LANSOPRAZOLE 30 MG TAB.RAP.DR PO SCH (05:18)
[2017-06-02] MEDS: HEPARIN SOD (PORCINE) 5,000 UNIT/ML 1 ML SYRINGE SUBCUT SCH (05:18)
[2017-06-02 06:00] LABS: BLOOD UREA NITROGEN 42 mg/dL (7-20); CALCIUM 8.6 mg/dL (8.4-10.2); CREATININE RESULT 1.66 mg/dL (0.52-1.25); GLUCOSE 98 mg/dL (75-110)
[2017-06-02 06:01] LABS: ANION GAP 11 (5-19); CARBON DIOXIDE 24 mmol/L (22-30); CHLORIDE 109 mmol/L (98-107); POTASSIUM 4.5 mmol/L (3.6-5.0); SODIUM 143.7 mmol/L (137-145)
[2017-06-02] MEDS: TOPIRAMATE 100 MG TABLET PO SCH (09:19)
[2017-06-02] MEDS: LEVOTHYROXINE SODIUM 0.15 MG TABLET PO SCH (09:19)
[2017-06-02] MEDS: AMLODIPINE BESYLATE 5 MG TABLET PO SCH (09:19)
[2017-06-02] MEDS: DULOXETINE HCL 30 MG CAPSULE.DR PO SCH (09:20)
[2017-06-02] MEDS: SITAGLIPTIN PHOSPHATE 50 MG TABLET PO SCH (09:20)
[2017-06-02] MEDS: LISINOPRIL 10 MG TABLET PO SCH (09:21)
[2017-06-02] MEDS ORDERED: METOPROLOL SUCCINATE 50 MG TAB.SR.24H PO SCH (10:00)
[2017-06-02] MEDS: HYDROCODONE/ACETAMINOPHEN 10-325 MG TABLET PO PRN (10:14)
[2017-06-02 10:47] VITALS: BP 186/76
== END 2017-06-02 12:00 | disposition home or self-care (01) | DRG 871 ==
LOC: ER 12:22 → UNDOADMIN 17:28 → EH 17:28 → 3N 18:39 → EH 18:39 → 3N 20:19
PROVIDERS: ADMIT Internal Medicine; ATTEND Internal Medicine
PROC: 3E0234Z Introduction of Serum, Toxoid and Vaccine into Muscle, Percutaneous Approach (ICD-10-PCS; principal; 2017-06-02)
DX: A41.9 Sepsis, unspecified organism (principal); G93.41 Metabolic encephalopathy; Z68.43 Body mass index [BMI] 50.0-59.9, adult; N30.00 Acute cystitis without hematuria; N18.3 Chronic kidney disease, stage 3 (moderate); E66.01 Morbid (severe) obesity due to excess calories; E11.22 Type 2 diabetes mellitus with diabetic chronic kidney disease; E11.42 Type 2 diabetes mellitus with diabetic polyneuropathy; E78.5 Hyperlipidemia, unspecified; I12.9 Hypertensive chronic kidney disease with stage 1 through stage 4 chronic kidney disease, or unspecified chronic kidney disease; E03.9 Hypothyroidism, unspecified; K21.9 Gastro-esophageal reflux disease without esophagitis; M19.90 Unspecified osteoarthritis, unspecified site; F32.9 Major depressive disorder, single episode, unspecified; B96.1 Klebsiella pneumoniae [K. pneumoniae] as the cause of diseases classified elsewhere; Z79.4 Long term (current) use of insulin; Z79.899 Other long term (current) drug therapy; Z23 Encounter for immunization
CPT/HCPCS: 36415; 71010; 80048; 80053; 80061; 80076; 80307; 81001; 82140; 82150; 82550; 82553; 82803; 82962; 83036; 83605; 83690; 83735; 83880; 84100; 84439; 84443; 84484; 85025; 85610; 85730; 87040; 87086; 87088; 87186; 90686; 93005; 93010; 96365; 99285; G8978-GP; G8979-GP; J0696; J1644; J1815; J2543; J3490; J7030

== ENCOUNTER 2017-07-10 11:11 | Observation (INO) | payer MEDICARE, MEDICAID ==
--- NOTE | 2017-07-10 14:02 | ER Document Report ---
ED Blood Sugar Problem - General Mode of Arrival: Ambulatory Information source: Patient TRAVEL OUTSIDE OF THE [place] IN LAST 30 DAYS: No <FLIP TINSLEY - Last Filed: 07/10/17 14:03> <ALMA CHINCHILLA - Last Filed: 07/10/17 16:12> - General Chief Complaint: Low Blood Sugar Stated Complaint: BLOOD SUGAR ISSUES Time Seen by Provider: 07/10/17 13:23 Notes: Patient is a 72-year-old female who presents to the emergency department today secondary to hypoglycemia. Patient was found to have a BGL in the 40s on EMS arrival today. Patient states she uses insulin on a sliding scale. Patient states last night prior to bed her blood sugar was 100, she took 38 units of Lantus and ate a snack. Patient states it is rare that she eats a snack but she did last night. Patient states she does not have this happen to her frequently. Patient has no complaints at this time. (FLIP TINSLEY) - Related Data Allergies/Adverse Reactions: aspirin [Aspirin] Allergy (Verified 05/26/17 12:27) Edema, GI UPSET morphine [Morphine] Allergy (Verified 05/26/17 12:27) ANAPHYLAXSIS, Facial swelling Past Medical History - General Information source: Patient, [facility] Records - Social History Smoking Status: Former Smoker Cigarette use (# per day): No Chew tobacco use (# tins/day): No Frequency of alcohol use: None Drug Abuse: None Lives with: Family Family History: Reviewed & Not Pertinent Patient has suicidal ideation: No Patient has homicidal ideation: No - Past Medical History Cardiac Medical History: Reports: Hx Hypercholesterolemia, Hx Hypertension Pulmonary Medical History: Reports: Hx Asthma Endocrine Medical History: Reports: Hx Diabetes Mellitus Type 2, Hx Hypothyroidism GI Medical History: Reports: Hx Gastroesophageal Reflux Disease, Hx Ulcer Musculoskeltal Medical History: Reports Hx Arthritis Psychiatric Medical History: Reports: Hx Depression Past Surgical History: Reports: Hx Cholecystectomy, Hx Hysterectomy, Hx Orthopedic Surgery - Immunizations Immunizations up to date: Yes Hx Diphtheria, Pertussis, Tetanus Vaccination: No Hx Pneumococcal Vaccination: 03/11/12 <FLIP TINSLEY - Last Filed: 07/10/17 14:03> Physical Exam <FLIP TINSLEY - Last Filed: 07/10/17 14:03> <ALMA CHINCHILLA - Last Filed: 07/10/17 16:12> - Vital signs Vitals: Temp Pulse Resp BP Pulse Ox 97.3 F 76 18 148/84 H 100 07/10/17 11:31 07/10/17 11:31 07/10/17 11:31 07/10/17 11:31 07/10/17 11:31 - Notes Notes: Physical Exam: General: Alert. HEENT: Normocephalic. Atraumatic. PERRL. Extraocular movements intact. Oropharynx clear. Neck: Supple. Non-tender. Respiratory: No respiratory distress. Clear and equal breath sounds bilaterally. Cardiovascular: Regular rate and rhythm. Abdominal: Obese. No distension. Normal Bowel Sounds. Back: Non-tender. No deformity or step off. Extremities: Moves all four extremities. Upper extremities: Normal inspection. Normal ROM. Lower extremities: Chronic thickening of skin to lower extremities. No edema. Normal ROM. Neurological: Normal cognition. AAOx4. Normal speech. Psychological: Normal affect. Normal Mood. Skin: Warm. Dry. Normal color. (FILP TINSLEY) Course <FLIP TINSLEY - Last Filed: 07/10/17 14:03> - Consults Dr. Givens Time consulted: 16:10 Consulted provider: will see as inpatient - Telemetry observation <ALMA CHINCHILLA - Last Filed: 07/10/17 16:12> - Re-evaluation Re-evalutation: 07/10/17 16:11 The patient had a blood sugar of 40 this morning at home. EMS gave oral glucose and raise the blood sugar to 58. When she arrived in the emergency room her blood sugar was 75. An hour and a half later it was 52. She was given a large Dell to eat and then ate a meal. Afterwards a blood sugar was checked at 105. 30 minutes later it was down to 61. She will be admitted by her primary care provider for monitoring until the exogenous insulin and her system wears off. (ALMA CHINCHILLA) - Vital Signs Vital signs: Temp Pulse Resp BP Pulse Ox 97.3 F 76 18 148/84 H 100 07/10/17 11:31 07/10/17 11:31 07/10/17 11:31 07/10/17 11:31 07/10/17 11:31 - Laboratory Laboratory results interpreted by me: 12/01/17 13:17 POC Glucose 52 L Discharge <FLIP TINSLEY - Last Filed: 07/10/17 14:03> - Discharge Admitting Provider: Laisha Unit Admitted: Telemetry <ALMA CHINCHILLA - Last Filed: 07/10/17 16:12> - Discharge Clinical Impression: Hypoglycemia Condition: Stable Disposition: ADMITTED OBSERVATION Referrals: BRAD GIVENS MD [Primary Care Provider] - Follow up as needed Scribe Attestation: 07/10/17 16:11 I personally performed the services described in the documentation, reviewed and edited the documentation which was dictated to the scribe in my presence, and it accurately records my words and actions. (ALMA CHINCHILLA) Scribe Documentation - Scribe Written by Scribe:: Nyla Ruano, 07/10/2017 1410 acting as scribe for :: Natalia <FLIP TINSLEY - Last Filed: 07/10/17 14:03>
[2017-07-10] MEDS ORDERED: ALBUTEROL SULFATE 0.083% NEB 2.5 MG/3 ML AMPUL NEB ONE (16:57)
[2017-07-10] MEDS ORDERED: GLUCAGON,HUMAN RECOMB 1 MG INJ IM PRN (20:31)
[2017-07-10] MEDS ORDERED: DEXTROSE 40% GEL 15 GM TUBE PO PRN ×2 (20:31)
[2017-07-10] MEDS ORDERED: DEXTROSE 50%-WATER 25 GM/50 ML DISP.SYRIN IV PRN ×2 (20:31)
[2017-07-10] MEDS ORDERED: CHLORPHENIRAMINE MALEATE 4 MG TABLET PO PRN (20:32)
[2017-07-10] MEDS ORDERED: (PENDING PHARMACY ID) (Mirabegron [Myrbetriq] 50 MG) PO SCH (20:45)
[2017-07-10] MEDS ORDERED: (PENDING PHARMACY ID) (Metoprolol Succinate [Toprol Xl] 200 MG) PO SCH (20:45)
[2017-07-10] MEDS ORDERED: ATORVASTATIN CALCIUM 20 MG TABLET PO SCH (22:00)
[2017-07-10] MEDS ORDERED: MONTELUKAST SODIUM 10 MG TABLET PO SCH (22:00)
[2017-07-10] MEDS: PREGABALIN 75 MG CAPSULE PO SCH (22:59)
[2017-07-11 05:35] LABS: APPEARANCE,URINE CLOUDY; BILIRUBIN,URINE NEGATIVE (NEGATIVE); GLUCOSE, URINE NEGATIVE (NEGATIVE); KETONES,URINE NEGATIVE (NEGATIVE); LEUKOCYTE ESTERASE,URINE MODERATE (NEGATIVE); NITRITE,URINE NEGATIVE (NEGATIVE); PROTEIN,URINE 100 mg/dL (NEGATIVE); URINE SPECIFIC GRAVITY 1.009; UROBILINOGEN,URINE NEGATIVE mg/dL (<2.0)
[2017-07-11 05:41] LABS: RBC,URINE 0-1 /HPF
[2017-07-11 05:42] LABS: BACTERIA,URINE 4+ /HPF
[2017-07-11] MEDS ORDERED: LANSOPRAZOLE 30 MG TAB.RAP.DR PO SCH (06:00)
[2017-07-11] MEDS ORDERED: LEVOTHYROXINE SODIUM 0.15 MG TABLET PO SCH (06:00)
[2017-07-11] MEDS ORDERED: TOPIRAMATE 100 MG TABLET PO SCH (08:00)
[2017-07-11] MEDS ORDERED: DULOXETINE HCL 30 MG CAPSULE.DR PO SCH (10:00)
[2017-07-11] MEDS ORDERED: METOPROLOL SUCCINATE 50 MG TAB.SR.24H PO SCH (10:00)
[2017-07-11] MEDS ORDERED: AMLODIPINE BESYLATE 5 MG TABLET PO SCH (10:00)
[2017-07-11] MEDS ORDERED: SITAGLIPTIN PHOSPHATE 50 MG TABLET PO SCH (10:00)
[2017-07-11] MEDS: PREGABALIN 75 MG CAPSULE PO SCH (11:17)
[2017-07-11 12:57] LABS: ALANINE AMINOTRANSFERASE 25 U/L (9-52); ALBUMIN 2.8 g/dL (3.5-5.0); ALKALINE PHOSPHATASE 122 U/L (38-126); ANION GAP 8 (5-19); ASPARTATE AMINO TRANSFERASE 15 U/L (14-36); BILIRUBIN,DIRECT 0.3 mg/dL (0.0-0.4); BILIRUBIN,TOTAL 0.3 mg/dL (0.2-1.3); BLOOD UREA NITROGEN 24 mg/dL (7-20); CALCIUM 8.3 mg/dL (8.4-10.2); CARBON DIOXIDE 25 mmol/L (22-30); CHLORIDE 109 mmol/L (98-107); CREATININE RESULT 1.36 mg/dL (0.52-1.25); GLUCOSE 130 mg/dL (75-110); POTASSIUM 4.1 mmol/L (3.6-5.0); SODIUM 141.7 mmol/L (137-145); TOTAL PROTEIN 5.8 g/dL (6.3-8.2)
--- NOTE | 2017-07-11 13:17 | PDOC H&P ---
History of Present Illness Admission Date/PCP: 07/10/17 16:29 BRAD GIVENS MD History of Present Illness: ONDINA ENRIQUEZ is a 72 year old female, she came to the emergency room last night for evaluation of hypoglycemia, she is well-known to me, she has a history of chronic kidney disease stage III morbid obesity, nonambulatory. In the emergency room she was evaluated, attempt was made to correct the hypoglycemia in the emergency room without success, she was advised to be admitted for observation. Patient was admitted for observation, she denies taking excessive insulin, she is presently on DPP 4 inhibitor Januvia in addition to insulin. The Januvia was discontinued. She was not given any oral hypoglycemic agent in the hospital, she was monitored for 23 hours, she has not had any episodes of hypoglycemia since admission. Past Medical History Cardiac Medical History: Reports: Hyperlipidema, Hypertension Pulmonary Medical History: Reports: Asthma Endocrine Medical History: Reports: Diabetes Mellitus Type 2, Hypothyroidism GI Medical History: Reports: Gastroesophageal Reflux Disease Musculoskeltal Medical History: Reports: Arthritis Psychiatric Medical History: Reports: Depression Hematology: Reports: Anemia Past Surgical History Past Surgical History: Reports: Cholecystectomy, Hysterectomy, Orthopedic Surgery Social History Lives with: Family Smoking Status: Never Smoker Frequency of Alcohol Use: None Hx Recreational Drug Use: No Drugs: None Hx Prescription Drug Abuse: No Family History Family History: Reviewed & Not Pertinent Parental Family History Reviewed: Yes Children Family History Reviewed: Yes Sibling(s) Family History Reviewed.: Yes Medication/Allergy Home Medications: Amlodipine Besylate [Norvasc 5 mg Tablet] 5 mg PO DAILY 07/10/17 Atorvastatin Calcium [Lipitor 20 mg Tablet] 20 mg PO QHS 07/10/17 Chlorpheniramine Maleate [Allergy] 4 mg PO Q6HP PRN 07/10/17 Dexlansoprazole [Dexilant 60 mg Capsule] 60 mg PO DAILY 07/10/17 Duloxetine HCl [Cymbalta] 60 mg PO DAILY 07/10/17 Insulin Glargine,Hum.rec.anlog [Lantus Solostar] 52 unit SQ QHS 07/10/17 Levothyroxine Sodium [Synthroid] 150 mcg PO QAM 07/10/17 Lisinopril 40 mg PO Q12 07/10/17 Metoprolol Succinate [Toprol Xl] 200 mg PO DAILY 07/10/17 Mirabegron [Myrbetriq] 50 mg PO DAILY 07/10/17 Montelukast Sodium [Singulair 10 mg Tablet] 10 mg PO QHS 07/10/17 Pregabalin [Lyrica 75 mg Capsule] 150 mg PO Q12 07/10/17 Topiramate [Topamax] 100 mg PO QAMPM 07/10/17 Linagliptin [Tradjenta] 5 mg PO DAILY #30 tablet 07/11/17 Allergies/Adverse Reactions: aspirin [Aspirin] Allergy (Verified 05/26/17 12:27) Edema, GI UPSET morphine [Morphine] Allergy (Verified 05/26/17 12:27) ANAPHYLAXSIS, Facial swelling Review of Systems Constitutional: ABSENT: chills, fever(s), headache(s), weight gain, weight loss Eyes: ABSENT: visual disturbances Ears: ABSENT: hearing changes Cardiovascular: ABSENT: chest pain, dyspnea on exertion, edema, orthropnea, palpitations Respiratory: ABSENT: cough, hemoptysis Gastrointestinal: ABSENT: abdominal pain, constipation, diarrhea, hematemesis, hematochezia, nausea, vomiting Genitourinary: ABSENT: dysuria, hematuria Musculoskeletal: ABSENT: joint swelling Integumentary: ABSENT: rash, wounds Neurological: ABSENT: abnormal gait, abnormal speech, confusion, dizziness, focal weakness, syncope Psychiatric: ABSENT: anxiety, depression, homidical ideation, suicidal ideation Endocrine: ABSENT: cold intolerance, heat intolerance, menstrual abnormalities, polydipsia, polyuria Hematologic/Lymphatic: ABSENT: easy bleeding, easy bruising, lymphadenopathy Physical Exam Vital Signs: Temp Pulse Resp BP Pulse Ox 98.7 F 83 16 125/52 L 94 07/11/17 07:29 07/11/17 07:29 07/11/17 07:29 07/11/17 07:29 07/11/17 07:29 Intake & Output 07/10/17 07/11/17 07/12/17 06:59 06:59 06:59 Intake Total 720 Output Total 850 Balance -130 Weight 149 kg General appearance: PRESENT: no acute distress, obese Head exam: PRESENT: atraumatic, normocephalic Eye exam: PRESENT: conjunctiva pink, EOMI, PERRLA Ear exam: PRESENT: normal external ear exam Mouth exam: PRESENT: moist, tongue midline Neck exam: PRESENT: full ROM Respiratory exam: PRESENT: clear to auscultation carter Cardiovascular exam: PRESENT: RRR, +S1, +S2 Pulses: PRESENT: normal dorsalis pedis pul, +2 pedal pulses bilateral Vascular exam: PRESENT: normal capillary refill GI/Abdominal exam: PRESENT: normal bowel sounds, soft Rectal exam: PRESENT: deferred Neurological exam: PRESENT: alert, awake, oriented to person, oriented to place , oriented to time, oriented to situation, CN II-XII grossly intact Psychiatric exam: PRESENT: appropriate affect, normal mood Skin exam: PRESENT: dry, intact, warm Results Laboratory Results: 07/11/17 12:17 07/11/17 07/11/17 05:10 12:17 Sodium 141.7 Potassium 4.1 Chloride 109 H Carbon Dioxide 25 Anion Gap 8 BUN 24 H Creatinine 1.36 H Est GFR ( Amer) 46 L Est GFR (Non-Af Amer) 38 L Glucose 130 H Calcium 8.3 L Total Bilirubin 0.3 AST 15 ALT 25 Alkaline Phosphatase 122 Total Protein 5.8 L Albumin 2.8 L Urine Color YELLOW Urine Appearance CLOUDY Urine pH 6.0 Ur Specific Marcellus 1.009 Urine Protein 100 H Urine Glucose (UA) NEGATIVE Urine Ketones NEGATIVE Urine Blood NEGATIVE Urine Nitrite NEGATIVE Ur Leukocyte Esterase MODERATE H Assessment & Plan - Diagnosis (1) Hypoglycemia Is this a current diagnosis for this admission?: Yes
[2017-07-11 15:31] VITALS: BP 166/77
== END 2017-07-11 16:15 | disposition home or self-care (01) ==
LOC: ER 11:11 → EH 16:29 → 4N 18:51
PROVIDERS: ADMIT Internal Medicine; ATTEND Internal Medicine
DX: E11.649 Type 2 diabetes mellitus with hypoglycemia without coma (principal); I12.9 Hypertensive chronic kidney disease with stage 1 through stage 4 chronic kidney disease, or unspecified chronic kidney disease; E11.22 Type 2 diabetes mellitus with diabetic chronic kidney disease; E66.01 Morbid (severe) obesity due to excess calories; E78.5 Hyperlipidemia, unspecified; E03.9 Hypothyroidism, unspecified; K21.9 Gastro-esophageal reflux disease without esophagitis; Z79.4 Long term (current) use of insulin; Z90.49 Acquired absence of other specified parts of digestive tract; Z90.710 Acquired absence of both cervix and uterus; Z79.899 Other long term (current) drug therapy; Z87.891 Personal history of nicotine dependence; Z68.43 Body mass index [BMI] 50.0-59.9, adult
CPT/HCPCS: 94640; 99285; 36415; 82962 ×2; 80053; 81001; G0378 ×2; A9270 ×10

== ENCOUNTER 2017-07-23 11:07 | Emergency (ER) | payer MEDICARE, MEDICAID ==
[2017-07-23 12:04] LABS: ABSOLUTE BASOPHILS # (AUTO) 0.1 10^3/uL (0.0-0.2); ABSOLUTE EOSINOPHILS # (AUTO) 0.4 10^3/uL (0.0-0.6); ABSOLUTE LYMPHOCYTES (AUTO) 1.8 10^3/uL (0.5-4.7); ABSOLUTE MONOCYTES (AUTO) 0.9 10^3/uL (0.1-1.4); ABSOLUTE NEUT (AUTO) 4.3 10^3/uL (1.7-8.2); BASOPHILS % (AUTO) 0.7 % (0-2); EOSINOPHILS % (AUTO) 5.6 % (0-6); HEMATOCRIT 28.9 % (36.0-47.0); HEMOGLOBIN 9.4 g/dL (12.0-15.5); HGB HCT DIFFERENCE -0.7; MEAN CORPUSCULAR HEMOGLOBIN 30.6 pg (27.0-33.4); MEAN CORPUSCULAR HGB CONC 32.5 g/dL (32.0-36.0); MEAN CORPUSCULAR VOLUME 94 fl (80-97); MONOCYTES % (AUTO) 11.9 % (3-13); RED BLOOD COUNT 3.06 10^6/uL (3.72-5.28); RED CELL DISTRIBUTION WIDTH 15.4 % (11.5-14.0); SEGMENTED NEUTROPHILS % (AUTO) 57.8 % (42-78); WHITE BLOOD COUNT 7.5 10^3/uL (4.0-10.5)
--- NOTE | 2017-07-23 12:12 | RADIOLOGY REPORT (SQ) ---
EXAM DESCRIPTION: CHEST SINGLE VIEW COMPLETED DATE/TIME: 07/23/2017 11:58 am REASON FOR STUDY: sob, wheezing COMPARISON: Chest films 07/18/2015, 09/30/2016, 02/16/2017, 05/26/2017 EXAM PARAMETERS: NUMBER OF VIEWS: One view. TECHNIQUE: Single frontal radiographic view of the chest acquired. RADIATION DOSE: NA LIMITATIONS: Large patient, portable technique FINDINGS: LUNGS AND PLEURA: No opacities, masses or pneumothorax. No pleural effusion. MEDIASTINUM AND HILAR STRUCTURES: No masses. Contour normal. HEART AND VASCULAR STRUCTURES: Heart normal in size. Normal vasculature. BONES: No acute findings. HARDWARE: None in the chest. OTHER: No other significant finding. IMPRESSION: NO ACUTE RADIOGRAPHIC FINDING IN THE CHEST. TECHNICAL DOCUMENTATION: JOB ID: [id number] Monitor- All Rights Reserved
--- NOTE | 2017-07-23 12:24 | ER Document Report ---
ED Respiratory Problem - General Chief Complaint: Breathing Difficulty Stated Complaint: BREATHING PROBLEMS Time Seen by Provider: 07/23/17 11:12 Mode of Arrival: Medic Information source: Patient Notes: Patient is a 72-year-old asthmatic with diabetes and renal failure who presents to the ER today for shortness of breath times this morning. Patient was wheezing on the ambulance so they did have to give her albuterol treatments. Patient states on arrival she feels much better. She denies any fevers, reductive cough. She is not on dialysis. She does state that she has albuterol inhalers at home but did not try to use it this morning, just call 911 instead. She denies any chest pain. TRAVEL OUTSIDE OF THE [place] IN LAST 30 DAYS: No - Related Data Allergies/Adverse Reactions: aspirin [Aspirin] Allergy (Verified 05/26/17 12:27) Edema, GI UPSET morphine [Morphine] Allergy (Verified 05/26/17 12:27) ANAPHYLAXSIS, Facial swelling Past Medical History - General Information source: Patient - Social History Smoking Status: Unknown if Ever Smoked Family History: Reviewed & Not Pertinent Patient has suicidal ideation: No Patient has homicidal ideation: No - Past Medical History Cardiac Medical History: Reports: Hx Hypercholesterolemia, Hx Hypertension Pulmonary Medical History: Reports: Hx Asthma Neurological Medical History: Denies: Hx Cerebrovascular Accident Endocrine Medical History: Reports: Hx Diabetes Mellitus Type 2, Hx Hypothyroidism Renal/ Medical History: Denies: Hx Peritoneal Dialysis GI Medical History: Reports: Hx Gastroesophageal Reflux Disease, Hx Ulcer Musculoskeltal Medical History: Reports Hx Arthritis Psychiatric Medical History: Reports: Hx Depression Past Surgical History: Reports: Hx Cholecystectomy, Hx Hysterectomy, Hx Orthopedic Surgery. Denies: Hx Pacemaker - Immunizations Immunizations up to date: Yes Hx Diphtheria, Pertussis, Tetanus Vaccination: No Hx Pneumococcal Vaccination: 03/11/12 Review of Systems - Review of Systems Constitutional: No symptoms reported EENT: No symptoms reported Cardiovascular: No symptoms reported Respiratory: See HPI Gastrointestinal: No symptoms reported Genitourinary: No symptoms reported Female Genitourinary: No symptoms reported Musculoskeletal: No symptoms reported Skin: No symptoms reported Hematologic/Lymphatic: No symptoms reported Neurological/Psychological: No symptoms reported Physical Exam - Vital signs Vitals: Resp Pulse Ox 15 100 07/23/17 11:50 07/23/17 11:50 - Notes Notes: PHYSICAL EXAMINATION: GENERAL: Morbidly obese, in no acute distress, taking albuterol treatment currently HEAD: Atraumatic, normocephalic. EYES: Pupils equal round and reactive to light, extraocular movements intact, sclera anicteric, conjunctiva are normal. ENT: ear canals without erythema or foreign body, TMs pearly carias with good bony landmarks, nares patent, oropharynx clear without exudates. Moist mucous membranes. NECK: Normal range of motion, supple without lymphadenopathy LUNGS: mild expiratory wheezes throughout, sixto or rhonchi. HEART: Regular rate and rhythm without murmurs ABDOMEN: Soft, no tenderness. No guarding, no rebound BACK: no vertebral tenderness, normal ROM GI/: no CVA tenderness EXTREMITIES: Normal range of motion, no pitting edema. No cyanosis. NEUROLOGICAL: Cranial nerves grossly intact. Normal sensory/motor exams. PSYCH: Normal mood, normal affect. SKIN: Warm, Dry, normal turgor, dry, cracked skin to bilateral lower extremities Course - Re-evaluation Re-evalutation: 07/23/17 15:20 Lab work is unremarkable today, at patient's baseline. Chest x-ray reveals no acute pathology. EKG reveals a normal sinus rhythm without evidence of ischemia. Cardiac enzymes are negative today. Patient feels much better after breathing treatments on ambulance, did not require any treatments here. Patient was watched for approximately 3 hours and remained at 95-97% on room air. She states that she feels comfortable going home at this time. - Vital Signs Vital signs: Temp Pulse Resp BP Pulse Ox 13 152/70 H 96 07/23/17 15:01 07/23/17 15:01 07/23/17 15:01 - Laboratory Result Diagrams: 07/23/17 11:57 07/23/17 11:57 Laboratory results interpreted by me: 07/23/17 07/23/17 07/23/17 11:57 11:57 12:07 RBC 3.06 L Hgb 9.4 L Hct 28.9 L RDW 15.4 H Plt Count 144 L Sodium 146.8 H Chloride 112 H BUN 28 H Creatinine 1.82 H Est GFR ( Amer) 33 L Est GFR (Non-Af Amer) 27 L Calcium 8.1 L Creatine Kinase 209 H Total Protein 5.6 L Albumin 2.9 L Urine Protein 30 H Ur Leukocyte Esterase MODERATE H Urine Ascorbic Acid 40 H Discharge - Discharge Clinical Impression: Asthma exacerbation Qualifiers: Asthma severity: unspecified severity Asthma persistence: unspecified Qualified Code(s): J45.901 - Unspecified asthma with (acute) exacerbation UTI (urinary tract infection) Qualifiers: Urinary tract infection type: site unspecified Hematuria presence: without hematuria Qualified Code(s): N39.0 - Urinary tract infection, site not specified Condition: Stable Disposition: HOME, SELF-CARE Instructions: Urinary Tract Infection ([facility]) Additional Instructions: Return immediately for any new or worsening symptoms. Follow up with primary care provider, call tomorrow to make followup appointment. Prescriptions: Albuterol Sulfate [Proair HFA Inhalation Aerosol 8.5 gm MDI] 2 puff IH Q4 PRN # 1 mdi PRN Reason: Azithromycin [Zithromax 250 mg Tablet] 250 mg PO ASDIR PRN #6 tablet PRN Reason: Referrals: BRAD GIVENS MD [Primary Care Provider] - Follow up as needed
[2017-07-23 12:33] LABS: ALANINE AMINOTRANSFERASE 27 U/L (9-52); ALBUMIN 2.9 g/dL (3.5-5.0); ALKALINE PHOSPHATASE 106 U/L (38-126); ANION GAP 10 (5-19); ASPARTATE AMINO TRANSFERASE 15 U/L (14-36); BILIRUBIN,DIRECT 0.1 mg/dL (0.0-0.4); BILIRUBIN,TOTAL 0.2 mg/dL (0.2-1.3); BLOOD UREA NITROGEN 28 mg/dL (7-20); CALCIUM 8.1 mg/dL (8.4-10.2); CARBON DIOXIDE 25 mmol/L (22-30); CHLORIDE 112 mmol/L (98-107); CREATINE KINASE 209 U/L (30-135); CREATININE RESULT 1.82 mg/dL (0.52-1.25); GLUCOSE 95 mg/dL (75-110); POTASSIUM 4.2 mmol/L (3.6-5.0); SODIUM 146.8 mmol/L (137-145); TOTAL PROTEIN 5.6 g/dL (6.3-8.2)
[2017-07-23 12:38] LABS: AMORPHOUS SEDIMENT,URINE TRACE /HPF; APPEARANCE,URINE CLOUDY; BILIRUBIN,URINE NEGATIVE (NEGATIVE); GLUCOSE, URINE NEGATIVE (NEGATIVE); KETONES,URINE NEGATIVE (NEGATIVE); LEUKOCYTE ESTERASE,URINE MODERATE (NEGATIVE); NITRITE,URINE NEGATIVE (NEGATIVE); PROTEIN,URINE 30 mg/dL (NEGATIVE); URINE SPECIFIC GRAVITY 1.011; UROBILINOGEN,URINE NEGATIVE mg/dL (<2.0)
[2017-07-23 12:39] LABS: CREATINE KINASE MB 1.48 ng/mL (<4.55)
[2017-07-23 12:41] LABS: TROPONIN I < 0.012 ng/mL
--- NOTE | 2017-07-23 12:59 | EKG REPORT ---
SEVERITY:- ABNORMAL ECG - SINUS RHYTHM ATRIAL PREMATURE COMPLEX ANTERIOR INFARCT, AGE INDETERMINATE : Confirmed by: Rhett Hall 23-Jul-2017 12:59:16
[2017-07-23] MEDS ORDERED: CEFTRIAXONE 1 GM/D5W RTU 1 GM/50 ML RTUPB IV ONE (13:08)
[2017-07-23 16:46] VITALS: BP 159/88
== END 2017-07-23 17:20 | disposition home or self-care (01) ==
LOC: ER 11:07
DX: J45.901 Unspecified asthma with (acute) exacerbation (principal); N39.0 Urinary tract infection, site not specified; N19 Unspecified kidney failure; E11.9 Type 2 diabetes mellitus without complications; E66.01 Morbid (severe) obesity due to excess calories; I10 Essential (primary) hypertension; R06.02 Shortness of breath; Z88.6 Allergy status to analgesic agent; Z87.892 Personal history of anaphylaxis; Z88.5 Allergy status to narcotic agent
CPT/HCPCS: 93005; 99285; 51701; 96365; 36415; 82553; 82550; 85025; 80053; 81001; 84484; 71010; 93010; J0696

== ENCOUNTER 2017-07-31 13:42 | Inpatient (IN) | payer MEDICARE, MEDICAID ==
[2017-07-31 15:39] LABS: VENOUS BLOOD BASE EXCESS 0.4 mmol/L; VENOUS BLOOD HCO3 29.3 mmol/L (20-32); VENOUS BLOOD PH 7.26 (7.30-7.42)
[2017-07-31 15:45] LABS: ABSOLUTE EOSINOPHILS # (AUTO) 0.4 10^3/uL (0.0-0.6); ABSOLUTE LYMPHOCYTES (AUTO) 0.9 10^3/uL (0.5-4.7); ABSOLUTE MONOCYTES (AUTO) 0.8 10^3/uL (0.1-1.4); ABSOLUTE NEUT (AUTO) 4.7 10^3/uL (1.7-8.2); BASOPHILS % (AUTO) 0.6 % (0-2); EOSINOPHILS % (AUTO) 5.1 % (0-6); HEMATOCRIT 30.6 % (36.0-47.0); LYMPHOCYTES % (AUTO) 13.3 % (13-45); MEAN CORPUSCULAR HEMOGLOBIN 30.9 pg (27.0-33.4); MEAN CORPUSCULAR HGB CONC 32.6 g/dL (32.0-36.0); MEAN CORPUSCULAR VOLUME 95 fl (80-97); MONOCYTES % (AUTO) 11.8 % (3-13); PLATELET COUNT 164 10^3/uL (150-450); RED BLOOD COUNT 3.24 10^6/uL (3.72-5.28); RED CELL DISTRIBUTION WIDTH 15.5 % (11.5-14.0); SEGMENTED NEUTROPHILS % (AUTO) 69.2 % (42-78); TOTAL CELLS COUNTED % (AUTO) 100 %; WHITE BLOOD COUNT 6.8 10^3/uL (4.0-10.5)
[2017-07-31 15:58] LABS: ALANINE AMINOTRANSFERASE 18 U/L (9-52); ALBUMIN 3.2 g/dL (3.5-5.0); ALKALINE PHOSPHATASE 135 U/L (38-126); ANION GAP 10 (5-19); ASPARTATE AMINO TRANSFERASE 19 U/L (14-36); BILIRUBIN,DIRECT 0.1 mg/dL (0.0-0.4); BILIRUBIN,TOTAL 0.1 mg/dL (0.2-1.3); BLOOD UREA NITROGEN 28 mg/dL (7-20); CALCIUM 8.7 mg/dL (8.4-10.2); CARBON DIOXIDE 29 mmol/L (22-30); CHLORIDE 109 mmol/L (98-107); GLUCOSE 115 mg/dL (75-110); LIPASE 66.6 U/L (23-300); POTASSIUM 3.9 mmol/L (3.6-5.0); SODIUM 147.5 mmol/L (137-145); TOTAL PROTEIN 6.5 g/dL (6.3-8.2)
[2017-07-31 16:29] LABS: APPEARANCE,URINE CLEAR; BILIRUBIN,URINE NEGATIVE (NEGATIVE); COLOR,URINE YELLOW; GLUCOSE, URINE NEGATIVE (NEGATIVE); KETONES,URINE NEGATIVE (NEGATIVE); LEUKOCYTE ESTERASE,URINE NEGATIVE (NEGATIVE); NITRITE,URINE NEGATIVE (NEGATIVE); PROTEIN,URINE 100 mg/dL (NEGATIVE); URINE SPECIFIC GRAVITY 1.012; UROBILINOGEN,URINE NEGATIVE mg/dL (<2.0)
--- NOTE | 2017-07-31 16:55 | RADIOLOGY REPORT (SQ) ---
EXAM DESCRIPTION: CHEST SINGLE VIEW COMPLETED DATE/TIME: 07/31/2017 4:44 pm REASON FOR STUDY: sob COMPARISON: 07/23/2017. EXAM PARAMETERS: NUMBER OF VIEWS: One view. TECHNIQUE: Single frontal radiographic view of the chest acquired. RADIATION DOSE: NA LIMITATIONS: None. FINDINGS: LUNGS AND PLEURA: No opacities, masses or pneumothorax. No pleural effusion. MEDIASTINUM AND HILAR STRUCTURES: No masses. Contour normal. HEART AND VASCULAR STRUCTURES: Heart normal in size. Normal vasculature. BONES: No acute findings. HARDWARE: None in the chest. OTHER: No other significant finding. IMPRESSION: NO ACUTE RADIOGRAPHIC FINDING IN THE CHEST. TECHNICAL DOCUMENTATION: JOB ID: [id number] [employer]- All Rights Reserved
--- NOTE | 2017-07-31 18:05 | ER Document Report ---
ED General - General Chief Complaint: Low Blood Sugar Stated Complaint: BLOOD SUGAR ISSUE Time Seen by Provider: 07/31/17 14:09 TRAVEL OUTSIDE OF THE [place] IN LAST 30 DAYS: No - HPI Patient complains to provider of: Low blood sugar Notes: EMS was initially called out for patient having low blood sugar. There is no documentation of the patient's initial blood sugar. Patient was also found to be hypoxic at the time of the oxygenation in the lower 80s-70s. Upon arrival patient's oxygenation had improved. Patient upon arrival had a blood sugar 77 EMS did provide treatment. Patient upon my evaluation is awake however slow to respond. Patient does look drowsy. Patient is severely overweight. Patient does have recently been treated for urinary tract infection. Patient is able tell me she has no fevers chills no complaints at this time. Patient is hungry and requesting food. - Related Data Allergies/Adverse Reactions: aspirin [Aspirin] Allergy (Verified 07/31/17 14:08) Edema, GI UPSET morphine [Morphine] Allergy (Verified 07/31/17 14:08) ANAPHYLAXSIS, Facial swelling Past Medical History - Social History Smoking Status: Unknown if Ever Smoked Family History: Reviewed & Not Pertinent Patient has suicidal ideation: No Patient has homicidal ideation: No - Past Medical History Cardiac Medical History: Reports: Hx Hypercholesterolemia, Hx Hypertension Pulmonary Medical History: Reports: Hx Asthma Neurological Medical History: Denies: Hx Cerebrovascular Accident Endocrine Medical History: Reports: Hx Diabetes Mellitus Type 2, Hx Hypothyroidism Renal/ Medical History: Denies: Hx Peritoneal Dialysis GI Medical History: Reports: Hx Gastroesophageal Reflux Disease, Hx Ulcer Musculoskeltal Medical History: Reports Hx Arthritis Psychiatric Medical History: Reports: Hx Depression Past Surgical History: Reports: Hx Cholecystectomy, Hx Hysterectomy, Hx Orthopedic Surgery. Denies: Hx Pacemaker - Immunizations Immunizations up to date: Yes Hx Diphtheria, Pertussis, Tetanus Vaccination: No Hx Pneumococcal Vaccination: 03/11/12 Review of Systems - Review of Systems Constitutional: Other - Low blood sugar EENT: No symptoms reported Cardiovascular: No symptoms reported Respiratory: No symptoms reported Gastrointestinal: No symptoms reported Genitourinary: No symptoms reported Female Genitourinary: No symptoms reported Musculoskeletal: No symptoms reported Skin: No symptoms reported Hematologic/Lymphatic: No symptoms reported Neurological/Psychological: No symptoms reported -: Yes All other systems reviewed and negative Physical Exam - Vital signs Vitals: Resp 13 07/31/17 13:59 Interpretation: Normal - General General appearance: Appears well, Other - Somnolent - HEENT Head: Normocephalic, Atraumatic Eyes: Normal Pupils: PERRL - Respiratory Respiratory status: No respiratory distress Chest status: Nontender Breath sounds: Normal Chest palpation: Normal - Cardiovascular Rhythm: Regular Heart sounds: Normal auscultation Murmur: No - Abdominal Inspection: Morbidly Obese Distension: No distension Bowel sounds: Normal Tenderness: Nontender Organomegaly: No organomegaly - Back Back: Normal, Nontender - Extremities General upper extremity: Normal inspection, Nontender, Normal color, Normal ROM , Normal temperature General lower extremity: Normal inspection, Nontender, Normal color, Normal ROM , Normal temperature, Normal weight bearing. No: Cristine's sign - Neurological Neuro grossly intact: Yes Cognition: Normal Orientation: AAOx4 [place] Coma Scale Eye Opening: Spontaneous [place] Coma Scale Verbal: Oriented [place] Coma Scale Motor: Obeys Commands [place] Coma Scale Total: 15 Speech: Normal Motor strength normal: LUE, RUE, LLE, RLE Sensory: Normal - Psychological Associated symptoms: Normal affect, Normal mood - Skin Skin Temperature: Warm Skin Moisture: Dry Skin Color: Normal Course - Re-evaluation Re-evalutation: 07/31/17 18:03 Because the patient sign elicited perform a VBG was this shows acidosis more likely due to hypercapnia. Patient was placed on BiPAP. Patient was reevaluated still slightly somnolent however states feeling better. Glucose has improved since eating. Unclear etiology for hypoglycemia. More likely the hypercapnia is due to obesity. Patient will be admitted just with PCP Dr. Givens recommends IMCU at this time. - Vital Signs Vital signs: Temp Pulse Resp BP Pulse Ox 97.4 F 76 15 150/71 H 93 07/31/17 14:02 07/31/17 14:02 07/31/17 16:09 07/31/17 14:02 07/31/17 16:00 - Laboratory Result Diagrams: 07/31/17 15:24 07/31/17 15:24 Laboratory results interpreted by me: 07/31/17 07/31/17 07/31/17 15:24 15:24 15:24 RBC 3.24 L Hgb 10.0 L Hct 30.6 L RDW 15.5 H VBG pH 7.26 L VBG pCO2 67.0 H* Sodium 147.5 H Chloride 109 H BUN 28 H Creatinine 1.50 H Est GFR ( Amer) 41 L Est GFR (Non-Af Amer) 34 L Glucose 115 H Total Bilirubin 0.1 L Alkaline Phosphatase 135 H Albumin 3.2 L Urine Protein Urine Ascorbic Acid 07/31/17 16:05 RBC Hgb Hct RDW VBG pH VBG pCO2 Sodium Chloride BUN Creatinine Est GFR ( Amer) Est GFR (Non-Af Amer) Glucose Total Bilirubin Alkaline Phosphatase Albumin Urine Protein 100 H Urine Ascorbic Acid 40 H Discharge - Discharge Clinical Impression: Hypoglycemia, Chronic kidney disease, stage III (moderate) Diabetes Qualifiers: Diabetes mellitus type: other specified (including PATRICE) Diabetes mellitus complication status: without complication Obesity Qualifiers: Obesity type: unspecified obesity type Obesity classification: unspecified obesity classification Serious obesity comorbidity presence: with serious comorbidity Qualified Code(s): E66.9 - Obesity, unspecified Respiratory failure with hypoxia and hypercapnia Qualifiers: Chronicity: acute Qualified Code(s): J96.01 - Acute respiratory failure with hypoxia; J96.02 - Acute respiratory failure with hypercapnia; J96.02 - Acute respiratory failure with hypercapnia; J96.02 - Acute respiratory failure with hypercapnia Condition: Fair Disposition: ADMITTED INPATIENT Admitting Provider: Laisha Unit Admitted: IMCU Referrals: BRAD GIVENS MD [Primary Care Provider] - Follow up as needed
[2017-07-31] MEDS ORDERED: IPRATROPIUM/ALBUTEROL 0.5-2.5 MG/3 ML AMPUL NEB PRN (20:54)
[2017-07-31] MEDS ORDERED: GLUCAGON,HUMAN RECOMB 1 MG INJ IM PRN (20:59)
[2017-07-31] MEDS ORDERED: DEXTROSE 50%-WATER 25 GM/50 ML DISP.SYRIN IV PRN ×2 (20:59)
[2017-07-31] MEDS ORDERED: DEXTROSE 40% GEL 15 GM TUBE PO PRN ×2 (20:59)
[2017-07-31] MEDS ORDERED: CHLORPHENIRAMINE MALEATE 4 MG TABLET PO PRN (20:59)
[2017-07-31] MEDS ORDERED: (PENDING PHARMACY ID) (Metoprolol Succinate [Toprol Xl 200 Mg Tablet] 200 MG) PO SCH (21:00)
[2017-07-31] MEDS ORDERED: (PENDING PHARMACY ID) (Linagliptin [Tradjenta] 5 MG) PO SCH (21:00)
[2017-07-31] MEDS ORDERED: (PENDING PHARMACY ID) (Mirabegron [Myrbetriq] 50 MG) PO SCH (21:00)
[2017-07-31] MEDS ORDERED: METOPROLOL SUCCINATE 50 MG TAB.SR.24H PO ONE (22:00)
[2017-07-31] MEDS ORDERED: SITAGLIPTIN PHOSPHATE 50 MG TABLET PO ONE (22:00)
[2017-07-31] MEDS ORDERED: MONTELUKAST SODIUM 10 MG TABLET PO ONE (22:00)
[2017-07-31 22:23] LABS: MAGNESIUM 1.8 mg/dL (1.6-2.3); PHOSPHORUS 4.9 mg/dL (2.5-4.5)
[2017-07-31 22:36] LABS: CREATINE KINASE MB 2.34 ng/mL (<4.55)
[2017-07-31 22:39] LABS: FREE T4 (FREE THYROXINE) 0.85 ng/dL (0.78-2.19); TROPONIN I < 0.012 ng/mL
[2017-07-31] MEDS: ATORVASTATIN CALCIUM 20 MG TABLET PO SCH (22:46)
[2017-07-31] MEDS: PREGABALIN 75 MG CAPSULE PO SCH (22:47)
[2017-07-31] MEDS: TOPIRAMATE 100 MG TABLET PO SCH (22:47)
[2017-07-31 22:49] LABS: INTERNATIONAL RATION (INR) 0.94; PROTHROMBIN TIME 13.3 SEC (11.4-15.4)
[2017-07-31] MEDS: DULOXETINE HCL 30 MG CAPSULE.DR PO SCH (22:49)
[2017-07-31 22:50] LABS: PARTIAL THROMBOPLASTIN TIME 33.7 SEC (23.5-35.8)
[2017-07-31] MEDS: LISINOPRIL 10 MG TABLET PO SCH (22:50)
[2017-07-31 22:53] LABS: THYROID STIMULATING HORMONE 3.62 uIU/mL (0.47-4.68)
[2017-07-31 23:03] LABS: ARTERIAL BLOOD BASE EXCESS 0.1 mmol/L; ARTERIAL BLOOD H2CO3 1.69 mmol/L (1.05-1.35); ARTERIAL BLOOD HCO3 27.3 mmol/L (20-26); ARTERIAL BLOOD O2 SATURATION 98.1 % (94-98); ARTERIAL BLOOD PCO2 56.3 mmHg (35-45); ARTERIAL BLOOD PO2 125.7 mmHg (80-100)
[2017-07-31 23:05] LABS: ARTERIAL BLOOD FIO2 2L
[2017-08-01 03:24] LABS: ALANINE AMINOTRANSFERASE 14 U/L (9-52); ALKALINE PHOSPHATASE 101 U/L (38-126); ANION GAP 6 (5-19); ASPARTATE AMINO TRANSFERASE 18 U/L (14-36); BILIRUBIN,DIRECT 0.2 mg/dL (0.0-0.4); BILIRUBIN,TOTAL 0.2 mg/dL (0.2-1.3); BLOOD UREA NITROGEN 26 mg/dL (7-20); CALCIUM 8.7 mg/dL (8.4-10.2); CARBON DIOXIDE 31 mmol/L (22-30); CHLORIDE 111 mmol/L (98-107); CHOLESTEROL 116.28 mg/dL (0-200); GLUCOSE 106 mg/dL (75-110); POTASSIUM 4.3 mmol/L (3.6-5.0); SODIUM 147.7 mmol/L (137-145); TOTAL PROTEIN 6.3 g/dL (6.3-8.2); TRIGLYCERIDES 69 mg/dL (<150)
[2017-08-01 03:35] LABS: DIRECT LDL 32 mg/dL (<100)
[2017-08-01 03:36] LABS: CREATINE KINASE MB 2.12 ng/mL (<4.55)
[2017-08-01 03:38] LABS: ABSOLUTE EOSINOPHILS # (AUTO) 0.4 10^3/uL (0.0-0.6); ABSOLUTE MONOCYTES (AUTO) 0.9 10^3/uL (0.1-1.4); ABSOLUTE NEUT (AUTO) 3.8 10^3/uL (1.7-8.2); BASOPHILS % (AUTO) 0.8 % (0-2); EOSINOPHILS % (AUTO) 6.6 % (0-6); HEMOGLOBIN 10.6 g/dL (12.0-15.5); LYMPHOCYTES % (AUTO) 16.1 % (13-45); MEAN CORPUSCULAR HEMOGLOBIN 30.5 pg (27.0-33.4); MEAN CORPUSCULAR VOLUME 95 fl (80-97); MONOCYTES % (AUTO) 14.2 % (3-13); PLATELET COUNT 149 10^3/uL (150-450); RED BLOOD COUNT 3.47 10^6/uL (3.72-5.28); RED CELL DISTRIBUTION WIDTH 15.6 % (11.5-14.0); SEGMENTED NEUTROPHILS % (AUTO) 62.3 % (42-78); TOTAL CELLS COUNTED % (AUTO) 100 %; WHITE BLOOD COUNT 6.1 10^3/uL (4.0-10.5)
[2017-08-01 03:43] LABS: TROPONIN I < 0.012 ng/mL
[2017-08-01] MEDS: LEVOTHYROXINE SODIUM 0.15 MG TABLET PO SCH (05:16)
[2017-08-01] MEDS: LANSOPRAZOLE 30 MG TAB.RAP.DR PO SCH (05:16)
--- NOTE | 2017-08-01 07:52 | EKG REPORT ---
SEVERITY:- ABNORMAL ECG - SINUS RHYTHM CONSIDER ANTEROSEPTAL INFARCT BORDERLINE T ABNORMALITIES, INFERIOR LEADS : Confirmed by: Matthew Thomas MD 01-Aug-2017 07:52:05
[2017-08-01] MEDS: SITAGLIPTIN PHOSPHATE 50 MG TABLET PO SCH (09:56)
[2017-08-01] MEDS: PREGABALIN 75 MG CAPSULE PO SCH ×2 (09:57→22:09)
[2017-08-01] MEDS: DULOXETINE HCL 30 MG CAPSULE.DR PO SCH ×2 (09:57→22:09)
[2017-08-01] MEDS: METOPROLOL SUCCINATE 50 MG TAB.SR.24H PO SCH (09:58)
[2017-08-01] MEDS: AMLODIPINE BESYLATE 5 MG TABLET PO SCH (09:58)
[2017-08-01] MEDS: TOPIRAMATE 100 MG TABLET PO SCH ×2 (09:59→22:11)
[2017-08-01] MEDS: INSULIN GLARGINE,HUM.REC.ANLOG 300 UNIT/3 ML INSULN.PEN SUBCUT SCH (09:59)
[2017-08-01] MEDS: LISINOPRIL 10 MG TABLET PO SCH ×2 (09:59→22:11)
[2017-08-01 10:41] LABS: CREATINE KINASE MB 2.15 ng/mL (<4.55)
[2017-08-01 10:45] LABS: TROPONIN I < 0.012 ng/mL
[2017-08-01] MEDS: ENOXAPARIN SODIUM INJ 40 MG/0.4 ML DISP.SYRIN SUBCUT SCH (11:51)
[2017-08-01] MEDS ORDERED: ENOXAPARIN SODIUM INJ 40 MG/0.4 ML DISP.SYRIN SUBCUT ONE (12:00)
[2017-08-01 12:24] LABS: ARTERIAL BLOOD BASE EXCESS 2.3 mmol/L; ARTERIAL BLOOD FIO2 25%; ARTERIAL BLOOD H2CO3 1.76 mmol/L (1.05-1.35); ARTERIAL BLOOD HCO3 29.3 mmol/L (20-26); ARTERIAL BLOOD O2 SATURATION 88.6 % (94-98); ARTERIAL BLOOD PCO2 58.4 mmHg (35-45); ARTERIAL BLOOD PH 7.32 (7.35-7.45); ARTERIAL BLOOD PO2 60.5 mmHg (80-100); ARTERIAL BLOOD TOTAL CO2 31.1 mmol/L (21-25)
--- NOTE | 2017-08-01 12:35 | PDOC H&P ---
History of Present Illness Admission Date/PCP: 07/31/17 18:16 BRAD GIVENS MD History of Present Illness: ONDINA ENRIQUEZ is a 72 year old female, she was transferred to the emergency room by EMS from home because of concern for hypoglycemia, there was no documentation of hypoglycemia but because she has a history of hypoglycemia in the past there was concern she is hypoglycemic, she is poorly responsive, lethargic the emergency room the blood work did not document any low blood sugar. The venous blood gas that was done revealed pH, 7.2 cc PCO2 37.0 the venous blood glucose was 115. The chest x-ray did not show any acute pathology , she is very obese the body mass index is 54.4. Arterial blood gas was done pH was 7.30, PCO2 56.3 PO2 125.7 bicarbonate 27.3 on FiO2 of 2 L this is consistent with acute hypercapnic respiratory failure, she is admitted to the hospital for management respiratory is supported with BiPAP machine. The apparent cause for the acute hypercapnic respiratory failure is due to obesity hypoventilation syndrome. Past Medical History Cardiac Medical History: Reports: Hyperlipidema, Hypertension Pulmonary Medical History: Reports: Asthma Endocrine Medical History: Reports: Diabetes Mellitus Type 2, Hypothyroidism, Obesity Renal/ Medical History: Reports: Chronic Kidney Disease, Other - Chronic kidney disease stage III GI Medical History: Reports: Gastroesophageal Reflux Disease Musculoskeltal Medical History: Reports: Arthritis Psychiatric Medical History: Reports: Depression Hematology: Reports: Anemia Past Surgical History Past Surgical History: Reports: Cholecystectomy, Hysterectomy, Orthopedic Surgery Social History Smoking Status: Never Smoker Frequency of Alcohol Use: Rare Hx Recreational Drug Use: No Drugs: None Hx Prescription Drug Abuse: No Family History Family History: Reviewed & Not Pertinent Parental Family History Reviewed: Yes Children Family History Reviewed: Yes Sibling(s) Family History Reviewed.: Yes Medication/Allergy Home Medications: Amlodipine Besylate [Norvasc 5 mg Tablet] 5 mg PO DAILY 07/31/17 Atorvastatin Calcium [Lipitor 20 mg Tablet] 20 mg PO QHS 07/31/17 Chlorpheniramine Maleate [Allergy Relief 4 mg Tablet] 4 mg PO Q6HP PRN 07/31/17 Dexlansoprazole [Dexilant 60 mg Capsule] 60 mg PO DAILY 07/31/17 Doxepin HCl 75 mg PO QHS 07/31/17 Duloxetine HCl [Cymbalta] 60 mg PO Q12 07/31/17 Insulin Glargine,Hum.rec.anlog [Lantus Solostar] 52 units SQ DAILY 07/31/17 Levothyroxine Sodium [Synthroid 0.15 mg Tablet] 0.15 mg PO DAILY 07/31/17 Linagliptin [Tradjenta] 5 mg PO DAILY 07/31/17 Lisinopril [Prinivil 40 mg Tablet] 40 mg PO Q12 07/31/17 Metoprolol Succinate [Toprol XL 200 mg Tablet] 200 mg PO DAILY 07/31/17 Mirabegron [Myrbetriq] 50 mg PO DAILY 07/31/17 Montelukast Sodium [Singulair 10 mg Tablet] 10 mg PO QPM 07/31/17 Pregabalin [Lyrica] 150 mg PO Q12 07/31/17 Topiramate [Topamax 100 mg Tablet] 100 mg PO Q12 07/31/17 Allergies/Adverse Reactions: aspirin [Aspirin] Allergy (Verified 07/31/17 14:08) Edema, GI UPSET morphine [Morphine] Allergy (Verified 07/31/17 14:08) ANAPHYLAXSIS, Facial swelling Review of Systems ROS unobtainable: Due to mental status - Difficult to obtain review of system because of extreme lethargy Physical Exam Vital Signs: Temp Pulse Resp BP Pulse Ox 98.1 F 57 L 20 135/65 H 100 08/01/17 07:43 08/01/17 10:02 08/01/17 10:02 08/01/17 07:43 08/01/17 10:02 Intake & Output 07/31/17 08/01/17 08/02/17 06:59 06:59 06:59 Intake Total 864 Balance 864 Weight 157.5 kg General appearance: PRESENT: other - She is morbidly obese very lethargic Head exam: PRESENT: atraumatic, normocephalic Eye exam: PRESENT: PERRLA Neck exam: PRESENT: full ROM Respiratory exam: PRESENT: clear to auscultation carter Cardiovascular exam: PRESENT: RRR, +S1, +S2 GI/Abdominal exam: PRESENT: soft Rectal exam: PRESENT: deferred Neurological exam: PRESENT: altered Skin exam: PRESENT: dry, intact, warm Results Laboratory Results: 08/01/17 03:32 08/01/17 03:03 07/31/17 07/31/17 07/31/17 21:50 21:50 22:45 WBC RBC Hgb Hct MCV MCH MCHC RDW Plt Count Seg Neutrophils % Lymphocytes % Monocytes % Eosinophils % Basophils % Absolute Neutrophils Absolute Lymphocytes Absolute Monocytes Absolute Eosinophils Absolute Basophils Carbonic Acid 1.69 H HCO3/H2CO3 Ratio 16:1 ABG pH 7.30 L ABG pCO2 56.3 H ABG pO2 125.7 H ABG HCO3 27.3 H ABG O2 Saturation 98.1 H ABG Base Excess 0.1 FiO2 2L Sodium Potassium Chloride Carbon Dioxide Anion Gap BUN Creatinine Est GFR ( Amer) Est GFR (Non-Af Amer) Glucose Calcium Phosphorus 4.9 H Magnesium 1.8 Total Bilirubin AST ALT Alkaline Phosphatase Total Protein Albumin Triglycerides Cholesterol LDL Cholesterol Direct VLDL Cholesterol HDL Cholesterol Amylase 49 Lipase 214.0 TSH 3.62 Free T4 0.85 08/01/17 08/01/17 03:03 03:32 WBC 6.1 RBC 3.47 L Hgb 10.6 L Hct 33.0 L MCV 95 MCH 30.5 MCHC 32.0 RDW 15.6 H Plt Count 149 L Seg Neutrophils % 62.3 Lymphocytes % 16.1 Monocytes % 14.2 H Eosinophils % 6.6 H Basophils % 0.8 Absolute Neutrophils 3.8 Absolute Lymphocytes 1.0 Absolute Monocytes 0.9 Absolute Eosinophils 0.4 Absolute Basophils 0.0 Carbonic Acid HCO3/H2CO3 Ratio ABG pH ABG pCO2 ABG pO2 ABG HCO3 ABG O2 Saturation ABG Base Excess FiO2 Sodium 147.7 H Potassium 4.3 Chloride 111 H Carbon Dioxide 31 H Anion Gap 6 BUN 26 H Creatinine 1.37 H Est GFR ( Amer) 46 L Est GFR (Non-Af Amer) 38 L Glucose 106 Calcium 8.7 Phosphorus Magnesium Total Bilirubin 0.2 AST 18 ALT 14 Alkaline Phosphatase 101 Total Protein 6.3 Albumin 3.0 L Triglycerides 69 Cholesterol 116.28 LDL Cholesterol Direct 32 VLDL Cholesterol 14.0 HDL Cholesterol 45 Amylase Lipase TSH Free T4 07/31/17 07/31/17 07/31/17 21:50 21:50 21:50 Creatine Kinase 264 H CK-MB (CK-2) 2.34 Troponin I < 0.012 NT-Pro-B Natriuret Pep 92 08/01/17 08/01/17 08/01/17 03:03 03:03 09:35 Creatine Kinase 223 H 240 H CK-MB (CK-2) 2.12 Troponin I < 0.012 NT-Pro-B Natriuret Pep 08/01/17 09:35 Creatine Kinase CK-MB (CK-2) 2.15 Troponin I < 0.012 NT-Pro-B Natriuret Pep Impressions: Chest X-Ray 07/31/17 16:08 IMPRESSION: NO ACUTE RADIOGRAPHIC FINDING IN THE CHEST. Assessment & Plan - Diagnosis (1) Acute hypercapnic respiratory failure Is this a current diagnosis for this admission?: Yes (2) Hypoventilation associated with obesity Is this a current diagnosis for this admission?: Yes (3) Type 2 diabetes mellitus with diabetic polyneuropathy Qualifiers: Diabetes mellitus snf insulin use: with snf use Qualified Code( s): E11.42 - Type 2 diabetes mellitus with diabetic polyneuropathy Is this a current diagnosis for this admission?: Yes (4) Metabolic encephalopathy Is this a current diagnosis for this admission?: Yes Plan: She has metabolic encephalopathy due to hypercapnia most likely related to morbid obesity, cannot completely rule out intracranial pathology she may need MRI/CT scan of the head
--- NOTE | 2017-08-01 14:45 | RADIOLOGY REPORT (SQ) ---
EXAM DESCRIPTION: MRI HEAD WITHOUT COMPLETED DATE/TIME: 08/01/2017 2:25 pm REASON FOR STUDY: suspect CVA COMPARISON: Head CT from 02/16/2017 TECHNIQUE: Multiplanar imaging includes non-contrasted T1, T2, FLAIR, and diffusion with ADC map seq uences. Images stored on PACS. LIMITATIONS: None. FINDINGS: ANATOMY: No anomalies. Normal vascular flow voids. Pituitary fossa normal. CSF SPACES: Normal in size and contour. No hemorrhage. CEREBRUM: Sulci and gyri normal in size and contour. Normal white matter signal on FLAIR imaging. No evidence of hemorrhage, mass, or extraaxial fluid collection. POSTERIOR FOSSA: No signal alteration. No hemorrhage. No edema, masses or mass effect. Internal stalin tory canals, cerebello-pontine angles, mastoids normal. DIFFUSION IMAGING: Negative for acute or sub-acute infarction. ORBITS: No masses. Globes normal. PARANASAL SINUSES: No fluid levels. Mucosa normal. OTHER: No other significant finding. IMPRESSION: NORMAL MRI OF THE BRAIN WITHOUT INTRAVENOUS GADOLINIUM CONTRAST. EVIDENCE OF ACUTE STROKE: NO. TECHNICAL DOCUMENTATION: JOB ID: [id number] [employer]- All Rights Reserved
--- NOTE | 2017-08-01 15:40 | PDOC PROGRESS REPORT ---
Subjective Progress Note for:: 08/01/17 Subjective:: She was seen by the bedside, she was admitted because of acute hypercapnic respiratory failure most likely due to obesity hypoventilation syndrome. MRI brain was done it was normal, there was no evidence of stroke no intracranial lesion, no bleed no neoplasm. The only possible explanation for the hypoventilation syndrome is from her obesity Reason For Visit: ACUTE HYPERCAPNIC RESPITATORY FAILURE, T2DM Physical Exam Vital Signs: Temp Pulse Resp BP Pulse Ox 97.8 F 58 L 14 119/61 99 08/01/17 11:44 08/01/17 14:00 08/01/17 11:44 08/01/17 11:44 08/01/17 11:44 Intake & Output 07/31/17 08/01/17 08/02/17 06:59 06:59 06:59 Intake Total 864 118 Balance 864 118 Weight 157.5 kg General appearance: PRESENT: no acute distress Head exam: PRESENT: atraumatic, normocephalic Eye exam: PRESENT: conjunctiva pink, EOMI, PERRLA Ear exam: PRESENT: normal external ear exam Mouth exam: PRESENT: moist, tongue midline Neck exam: PRESENT: full ROM Respiratory exam: PRESENT: clear to auscultation carter Cardiovascular exam: PRESENT: RRR, +S1, +S2 Vascular exam: PRESENT: normal capillary refill GI/Abdominal exam: PRESENT: normal bowel sounds, soft Rectal exam: PRESENT: deferred Neurological exam: PRESENT: alert, awake, oriented to person, oriented to place , oriented to time, oriented to situation, CN II-XII grossly intact Psychiatric exam: PRESENT: appropriate affect, normal mood Skin exam: PRESENT: dry, intact, warm Results Laboratory Results: 08/01/17 03:32 08/01/17 03:03 07/31/17 07/31/17 07/31/17 21:50 21:50 22:45 WBC RBC Hgb Hct MCV MCH MCHC RDW Plt Count Seg Neutrophils % Lymphocytes % Monocytes % Eosinophils % Basophils % Absolute Neutrophils Absolute Lymphocytes Absolute Monocytes Absolute Eosinophils Absolute Basophils Carbonic Acid 1.69 H HCO3/H2CO3 Ratio 16:1 ABG pH 7.30 L ABG pCO2 56.3 H ABG pO2 125.7 H ABG HCO3 27.3 H ABG O2 Saturation 98.1 H ABG Base Excess 0.1 FiO2 2L Sodium Potassium Chloride Carbon Dioxide Anion Gap BUN Creatinine Est GFR ( Amer) Est GFR (Non-Af Amer) Glucose Calcium Phosphorus 4.9 H Magnesium 1.8 Total Bilirubin AST ALT Alkaline Phosphatase Total Protein Albumin Triglycerides Cholesterol LDL Cholesterol Direct VLDL Cholesterol HDL Cholesterol Amylase 49 Lipase 214.0 TSH 3.62 Free T4 0.85 08/01/17 08/01/17 08/01/17 03:03 03:32 12:08 WBC 6.1 RBC 3.47 L Hgb 10.6 L Hct 33.0 L MCV 95 MCH 30.5 MCHC 32.0 RDW 15.6 H Plt Count 149 L Seg Neutrophils % 62.3 Lymphocytes % 16.1 Monocytes % 14.2 H Eosinophils % 6.6 H Basophils % 0.8 Absolute Neutrophils 3.8 Absolute Lymphocytes 1.0 Absolute Monocytes 0.9 Absolute Eosinophils 0.4 Absolute Basophils 0.0 Carbonic Acid 1.76 H HCO3/H2CO3 Ratio 16:1 ABG pH 7.32 L ABG pCO2 58.4 H ABG pO2 60.5 L ABG HCO3 29.3 H ABG O2 Saturation 88.6 L ABG Base Excess 2.3 FiO2 25% Sodium 147.7 H Potassium 4.3 Chloride 111 H Carbon Dioxide 31 H Anion Gap 6 BUN 26 H Creatinine 1.37 H Est GFR ( Amer) 46 L Est GFR (Non-Af Amer) 38 L Glucose 106 Calcium 8.7 Phosphorus Magnesium Total Bilirubin 0.2 AST 18 ALT 14 Alkaline Phosphatase 101 Total Protein 6.3 Albumin 3.0 L Triglycerides 69 Cholesterol 116.28 LDL Cholesterol Direct 32 VLDL Cholesterol 14.0 HDL Cholesterol 45 Amylase Lipase TSH Free T4 07/31/17 07/31/17 07/31/17 21:50 21:50 21:50 Creatine Kinase 264 H CK-MB (CK-2) 2.34 Troponin I < 0.012 NT-Pro-B Natriuret Pep 92 08/01/17 08/01/17 08/01/17 03:03 03:03 09:35 Creatine Kinase 223 H 240 H CK-MB (CK-2) 2.12 Troponin I < 0.012 NT-Pro-B Natriuret Pep 08/01/17 09:35 Creatine Kinase CK-MB (CK-2) 2.15 Troponin I < 0.012 NT-Pro-B Natriuret Pep Impressions: Chest X-Ray 07/31/17 16:08 IMPRESSION: NO ACUTE RADIOGRAPHIC FINDING IN THE CHEST. Head MRI 08/01/17 00:00 IMPRESSION: NORMAL MRI OF THE BRAIN WITHOUT INTRAVENOUS GADOLINIUM CONTRAST. EVIDENCE OF ACUTE STROKE: NO. 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
[2017-08-01] MEDS ORDERED: ACETAMINOPHEN 325 MG TABLET PO ONE (16:15)
[2017-08-01] MEDS: MONTELUKAST SODIUM 10 MG TABLET PO SCH (17:03)
[2017-08-01] MEDS: ATORVASTATIN CALCIUM 20 MG TABLET PO SCH (22:11)
[2017-08-02 05:06] LABS: ABSOLUTE EOSINOPHILS # (AUTO) 0.3 10^3/uL (0.0-0.6); ABSOLUTE LYMPHOCYTES (AUTO) 1.3 10^3/uL (0.5-4.7); ABSOLUTE MONOCYTES (AUTO) 0.7 10^3/uL (0.1-1.4); ABSOLUTE NEUT (AUTO) 3.2 10^3/uL (1.7-8.2); BASOPHILS % (AUTO) 0.7 % (0-2); EOSINOPHILS % (AUTO) 6.2 % (0-6); HEMATOCRIT 27.6 % (36.0-47.0); LYMPHOCYTES % (AUTO) 23.7 % (13-45); MEAN CORPUSCULAR HEMOGLOBIN 30.8 pg (27.0-33.4); MEAN CORPUSCULAR HGB CONC 32.4 g/dL (32.0-36.0); MEAN CORPUSCULAR VOLUME 95 fl (80-97); MONOCYTES % (AUTO) 12.2 % (3-13); PLATELET COUNT 140 10^3/uL (150-450); SEGMENTED NEUTROPHILS % (AUTO) 57.2 % (42-78); TOTAL CELLS COUNTED % (AUTO) 100 %; WHITE BLOOD COUNT 5.6 10^3/uL (4.0-10.5)
[2017-08-02 05:38] LABS: ALANINE AMINOTRANSFERASE 23 U/L (9-52); ALBUMIN 2.8 g/dL (3.5-5.0); ALKALINE PHOSPHATASE 105 U/L (38-126); ANION GAP 7 (5-19); ASPARTATE AMINO TRANSFERASE 25 U/L (14-36); BLOOD UREA NITROGEN 29 mg/dL (7-20); CALCIUM 9.1 mg/dL (8.4-10.2); CARBON DIOXIDE 26 mmol/L (22-30); CHLORIDE 111 mmol/L (98-107); GLUCOSE 122 mg/dL (75-110); POTASSIUM 4.6 mmol/L (3.6-5.0); SODIUM 143.8 mmol/L (137-145); TOTAL PROTEIN 5.7 g/dL (6.3-8.2)
[2017-08-02 05:49] LABS: BILIRUBIN,DIRECT 0.1 mg/dL (0.0-0.4); BILIRUBIN,TOTAL 0.1 mg/dL (0.2-1.3)
[2017-08-02] MEDS: LEVOTHYROXINE SODIUM 0.15 MG TABLET PO SCH (05:53)
[2017-08-02] MEDS: LANSOPRAZOLE 30 MG TAB.RAP.DR PO SCH (05:54)
[2017-08-02] MEDS: ENOXAPARIN SODIUM INJ 40 MG/0.4 ML DISP.SYRIN SUBCUT SCH (09:18)
[2017-08-02] MEDS: METOPROLOL SUCCINATE 50 MG TAB.SR.24H PO SCH (09:21)
[2017-08-02] MEDS: AMLODIPINE BESYLATE 5 MG TABLET PO SCH (09:30)
[2017-08-02] MEDS: PREGABALIN 75 MG CAPSULE PO SCH ×2 (09:31→21:39)
[2017-08-02] MEDS: SITAGLIPTIN PHOSPHATE 50 MG TABLET PO SCH (09:31)
[2017-08-02] MEDS: TOPIRAMATE 100 MG TABLET PO SCH ×2 (09:31→21:39)
[2017-08-02] MEDS: DULOXETINE HCL 30 MG CAPSULE.DR PO SCH ×2 (09:31→21:39)
[2017-08-02] MEDS: INSULIN GLARGINE,HUM.REC.ANLOG 300 UNIT/3 ML INSULN.PEN SUBCUT SCH (09:37)
[2017-08-02] MEDS: LISINOPRIL 10 MG TABLET PO SCH ×2 (09:37→21:39)
[2017-08-02] MEDS ORDERED: ACETAMINOPHEN 325 MG TABLET PO PRN (14:45)
--- NOTE | 2017-08-02 14:45 | PDOC PROGRESS REPORT ---
Subjective Progress Note for:: 08/02/17 Subjective:: Patient complains of pain, she was admitted for the management of acute hypercapnic respiratory failure partly due to obesity and also probably from narcotics. I explained to her that it is not safe for her to continue to use narcotic for pain control especially with hypoventilation. She has to use non- opioid therapy, I have to discuss this with the family because it is not safe at this point to continue to prescribe with opioid for the control pain. She asked to use Lyrica, ambulation for pain control Reason For Visit: ACUTE HYPERCAPNIC RESPITATORY FAILURE, T2DM Physical Exam Vital Signs: Temp Pulse Resp BP Pulse Ox 98.3 F 50 L 12 116/52 L 99 08/02/17 12:25 08/02/17 12:25 08/02/17 12:25 08/02/17 12:25 08/02/17 12:25 Intake & Output 08/01/17 08/02/17 08/03/17 06:59 06:59 06:59 Intake Total 864 516 355 Output Total 0 Balance 864 516 355 Weight 157.5 kg 150.3 kg General appearance: PRESENT: morbidly obese Head exam: PRESENT: atraumatic, normocephalic Eye exam: PRESENT: conjunctiva pink, EOMI, PERRLA Ear exam: PRESENT: normal external ear exam Mouth exam: PRESENT: moist, tongue midline Neck exam: PRESENT: full ROM Respiratory exam: PRESENT: clear to auscultation carter Cardiovascular exam: PRESENT: RRR, +S1, +S2 Vascular exam: PRESENT: normal capillary refill GI/Abdominal exam: PRESENT: normal bowel sounds, soft Rectal exam: PRESENT: deferred Neurological exam: PRESENT: alert Skin exam: PRESENT: dry, intact, warm Results Laboratory Results: 08/02/17 04:14 08/02/17 04:14 08/02/17 08/02/17 04:14 04:14 WBC 5.6 RBC 2.90 L Hgb 9.0 L Hct 27.6 L MCV 95 MCH 30.8 MCHC 32.4 RDW 16.0 H Plt Count 140 L Seg Neutrophils % 57.2 Lymphocytes % 23.7 Monocytes % 12.2 Eosinophils % 6.2 H Basophils % 0.7 Absolute Neutrophils 3.2 Absolute Lymphocytes 1.3 Absolute Monocytes 0.7 Absolute Eosinophils 0.3 Absolute Basophils 0.0 Sodium 143.8 Potassium 4.6 Chloride 111 H Carbon Dioxide 26 Anion Gap 7 BUN 29 H Creatinine 1.62 H Est GFR ( Amer) 38 L Est GFR (Non-Af Amer) 31 L Glucose 122 H Calcium 9.1 Total Bilirubin 0.1 L AST 25 ALT 23 Alkaline Phosphatase 105 Total Protein 5.7 L Albumin 2.8 L 07/31/17 07/31/17 07/31/17 21:50 21:50 21:50 Creatine Kinase 264 H CK-MB (CK-2) 2.34 Troponin I < 0.012 NT-Pro-B Natriuret Pep 92 08/01/17 08/01/17 08/01/17 03:03 03:03 09:35 Creatine Kinase 223 H 240 H CK-MB (CK-2) 2.12 Troponin I < 0.012 NT-Pro-B Natriuret Pep 08/01/17 09:35 Creatine Kinase CK-MB (CK-2) 2.15 Troponin I < 0.012 NT-Pro-B Natriuret Pep Impressions: Chest X-Ray 07/31/17 16:08 IMPRESSION: NO ACUTE RADIOGRAPHIC FINDING IN THE CHEST. Head MRI 08/01/17 00:00 IMPRESSION: NORMAL MRI OF THE BRAIN WITHOUT INTRAVENOUS GADOLINIUM CONTRAST. EVIDENCE OF ACUTE STROKE: NO. 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
[2017-08-02] MEDS: MONTELUKAST SODIUM 10 MG TABLET PO SCH (17:22)
[2017-08-02] MEDS: ATORVASTATIN CALCIUM 20 MG TABLET PO SCH (21:39)
[2017-08-03 05:16] LABS: ABSOLUTE BASOPHILS # (AUTO) 0.1 10^3/uL (0.0-0.2); ABSOLUTE EOSINOPHILS # (AUTO) 0.3 10^3/uL (0.0-0.6); ABSOLUTE LYMPHOCYTES (AUTO) 1.2 10^3/uL (0.5-4.7); ABSOLUTE MONOCYTES (AUTO) 0.8 10^3/uL (0.1-1.4); BASOPHILS % (AUTO) 0.8 % (0-2); EOSINOPHILS % (AUTO) 5.4 % (0-6); HEMATOCRIT 30.2 % (36.0-47.0); HEMOGLOBIN 9.9 g/dL (12.0-15.5); MEAN CORPUSCULAR HEMOGLOBIN 30.6 pg (27.0-33.4); MEAN CORPUSCULAR HGB CONC 32.8 g/dL (32.0-36.0); MEAN CORPUSCULAR VOLUME 94 fl (80-97); MONOCYTES % (AUTO) 12.5 % (3-13); PLATELET COUNT 157 10^3/uL (150-450); RED BLOOD COUNT 3.23 10^6/uL (3.72-5.28); RED CELL DISTRIBUTION WIDTH 15.4 % (11.5-14.0); SEGMENTED NEUTROPHILS % (AUTO) 62.3 % (42-78); TOTAL CELLS COUNTED % (AUTO) 100 %; WHITE BLOOD COUNT 6.4 10^3/uL (4.0-10.5)
[2017-08-03 05:37] LABS: ALANINE AMINOTRANSFERASE 29 U/L (9-52); ALBUMIN 3.1 g/dL (3.5-5.0); ALKALINE PHOSPHATASE 111 U/L (38-126); ANION GAP 9 (5-19); ASPARTATE AMINO TRANSFERASE 23 U/L (14-36); BILIRUBIN,DIRECT 0.2 mg/dL (0.0-0.4); BILIRUBIN,TOTAL 0.2 mg/dL (0.2-1.3); BLOOD UREA NITROGEN 30 mg/dL (7-20); CALCIUM 9.4 mg/dL (8.4-10.2); CARBON DIOXIDE 27 mmol/L (22-30); CHLORIDE 108 mmol/L (98-107); GLUCOSE 124 mg/dL (75-110); POTASSIUM 4.8 mmol/L (3.6-5.0); SODIUM 144.1 mmol/L (137-145); TOTAL PROTEIN 6.2 g/dL (6.3-8.2)
[2017-08-03] MEDS: LEVOTHYROXINE SODIUM 0.15 MG TABLET PO SCH (05:54)
[2017-08-03] MEDS: LANSOPRAZOLE 30 MG TAB.RAP.DR PO SCH (05:54)
[2017-08-03] MEDS: LISINOPRIL 10 MG TABLET PO SCH ×2 (10:25→22:28)
[2017-08-03] MEDS: METOPROLOL SUCCINATE 50 MG TAB.SR.24H PO SCH (10:26)
[2017-08-03] MEDS: AMLODIPINE BESYLATE 5 MG TABLET PO SCH (10:26)
[2017-08-03] MEDS: TOPIRAMATE 100 MG TABLET PO SCH ×2 (10:26→22:27)
[2017-08-03] MEDS: DULOXETINE HCL 30 MG CAPSULE.DR PO SCH ×2 (10:26→22:28)
[2017-08-03] MEDS: PREGABALIN 75 MG CAPSULE PO SCH ×2 (10:27→22:28)
[2017-08-03] MEDS: SITAGLIPTIN PHOSPHATE 50 MG TABLET PO SCH (10:27)
[2017-08-03] MEDS: INSULIN GLARGINE,HUM.REC.ANLOG 300 UNIT/3 ML INSULN.PEN SUBCUT SCH (10:28)
[2017-08-03] MEDS: ENOXAPARIN SODIUM INJ 40 MG/0.4 ML DISP.SYRIN SUBCUT SCH (10:28)
--- NOTE | 2017-08-03 12:43 | PDOC PROGRESS REPORT ---
Subjective Progress Note for:: 08/03/17 Subjective:: She was seen today, she is coherent alert oriented Reason For Visit: ACUTE HYPERCAPNIC RESPITATORY FAILURE, T2DM Physical Exam Vital Signs: Temp Pulse Resp BP Pulse Ox 97.9 F 55 L 20 162/62 H 96 08/03/17 07:57 08/03/17 07:57 08/03/17 07:57 08/03/17 07:57 08/03/17 07:57 Intake & Output 08/02/17 08/03/17 08/04/17 06:59 06:59 06:59 Intake Total 516 1352 Output Total 0 Balance 516 1352 Weight 150.3 kg 158.7 kg General appearance: PRESENT: no acute distress Eye exam: PRESENT: PERRLA Respiratory exam: PRESENT: clear to auscultation carter Cardiovascular exam: PRESENT: +S1, +S2 GI/Abdominal exam: PRESENT: soft Neurological exam: PRESENT: alert Results Laboratory Results: 08/03/17 04:49 08/03/17 04:49 08/03/17 08/03/17 04:49 04:49 WBC 6.4 RBC 3.23 L Hgb 9.9 L Hct 30.2 L MCV 94 MCH 30.6 MCHC 32.8 RDW 15.4 H Plt Count 157 Seg Neutrophils % 62.3 Lymphocytes % 19.0 Monocytes % 12.5 Eosinophils % 5.4 Basophils % 0.8 Absolute Neutrophils 4.0 Absolute Lymphocytes 1.2 Absolute Monocytes 0.8 Absolute Eosinophils 0.3 Absolute Basophils 0.1 Sodium 144.1 Potassium 4.8 Chloride 108 H Carbon Dioxide 27 Anion Gap 9 BUN 30 H Creatinine 1.81 H Est GFR ( Amer) 33 L Est GFR (Non-Af Amer) 27 L Glucose 124 H Calcium 9.4 Total Bilirubin 0.2 AST 23 ALT 29 Alkaline Phosphatase 111 Total Protein 6.2 L Albumin 3.1 L 07/31/17 07/31/17 07/31/17 21:50 21:50 21:50 Creatine Kinase 264 H CK-MB (CK-2) 2.34 Troponin I < 0.012 NT-Pro-B Natriuret Pep 92 08/01/17 08/01/17 08/01/17 03:03 03:03 09:35 Creatine Kinase 223 H 240 H CK-MB (CK-2) 2.12 Troponin I < 0.012 NT-Pro-B Natriuret Pep 08/01/17 09:35 Creatine Kinase CK-MB (CK-2) 2.15 Troponin I < 0.012 NT-Pro-B Natriuret Pep Impressions: Chest X-Ray 07/31/17 16:08 IMPRESSION: NO ACUTE RADIOGRAPHIC FINDING IN THE CHEST. Head MRI 08/01/17 00:00 IMPRESSION: NORMAL MRI OF THE BRAIN WITHOUT INTRAVENOUS GADOLINIUM CONTRAST. EVIDENCE OF ACUTE STROKE: NO. 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
[2017-08-03] MEDS: MONTELUKAST SODIUM 10 MG TABLET PO SCH (17:43)
[2017-08-03] MEDS: ATORVASTATIN CALCIUM 20 MG TABLET PO SCH (22:27)
[2017-08-04] MEDS: LEVOTHYROXINE SODIUM 0.15 MG TABLET PO SCH (06:01)
[2017-08-04] MEDS: LANSOPRAZOLE 30 MG TAB.RAP.DR PO SCH (06:01)
[2017-08-04] MEDS: DULOXETINE HCL 30 MG CAPSULE.DR PO SCH ×2 (09:35→21:44)
[2017-08-04] MEDS: TOPIRAMATE 100 MG TABLET PO SCH ×2 (09:35→21:44)
[2017-08-04] MEDS: AMLODIPINE BESYLATE 5 MG TABLET PO SCH (09:35)
[2017-08-04] MEDS: PREGABALIN 75 MG CAPSULE PO SCH ×2 (09:36→21:44)
[2017-08-04] MEDS: METOPROLOL SUCCINATE 50 MG TAB.SR.24H PO SCH (09:36)
[2017-08-04] MEDS: LISINOPRIL 10 MG TABLET PO SCH ×2 (09:36→21:44)
[2017-08-04] MEDS: ENOXAPARIN SODIUM INJ 40 MG/0.4 ML DISP.SYRIN SUBCUT SCH (09:37)
[2017-08-04] MEDS: INSULIN GLARGINE,HUM.REC.ANLOG 300 UNIT/3 ML INSULN.PEN SUBCUT SCH (09:41)
[2017-08-04] MEDS: SITAGLIPTIN PHOSPHATE 50 MG TABLET PO SCH (09:41)
[2017-08-04] MEDS: INSULIN LISPRO 100 UNIT/ML 3 ML VIAL SUBCUT PRN ×2 (14:03→22:47)
[2017-08-04 14:35] LABS: ABSOLUTE BASOPHILS # (AUTO) 0.2 10^3/uL (0.0-0.2); ABSOLUTE EOSINOPHILS # (AUTO) 0.5 10^3/uL (0.0-0.6); ABSOLUTE LYMPHOCYTES (AUTO) 1.4 10^3/uL (0.5-4.7); ABSOLUTE MONOCYTES (AUTO) 0.9 10^3/uL (0.1-1.4); ABSOLUTE NEUT (AUTO) 4.8 10^3/uL (1.7-8.2); EOSINOPHILS % (AUTO) 6.2 % (0-6); HEMATOCRIT 31.7 % (36.0-47.0); HEMOGLOBIN 10.3 g/dL (12.0-15.5); LYMPHOCYTES % (AUTO) 17.7 % (13-45); MEAN CORPUSCULAR HEMOGLOBIN 30.4 pg (27.0-33.4); MEAN CORPUSCULAR HGB CONC 32.5 g/dL (32.0-36.0); MEAN CORPUSCULAR VOLUME 93 fl (80-97); MONOCYTES % (AUTO) 11.7 % (3-13); PLATELET COUNT 151 10^3/uL (150-450); RED BLOOD COUNT 3.39 10^6/uL (3.72-5.28); RED CELL DISTRIBUTION WIDTH 15.5 % (11.5-14.0); SEGMENTED NEUTROPHILS % (AUTO) 62.4 % (42-78); TOTAL CELLS COUNTED % (AUTO) 100 %; WHITE BLOOD COUNT 7.6 10^3/uL (4.0-10.5)
[2017-08-04 14:47] LABS: ALANINE AMINOTRANSFERASE 20 U/L (9-52); ALBUMIN 3.4 g/dL (3.5-5.0); ALKALINE PHOSPHATASE 106 U/L (38-126); ANION GAP 9 (5-19); ASPARTATE AMINO TRANSFERASE 25 U/L (14-36); BILIRUBIN,DIRECT 0.4 mg/dL (0.0-0.4); BILIRUBIN,TOTAL 0.5 mg/dL (0.2-1.3); BLOOD UREA NITROGEN 36 mg/dL (7-20); CALCIUM 10.1 mg/dL (8.4-10.2); CARBON DIOXIDE 27 mmol/L (22-30); CHLORIDE 109 mmol/L (98-107); GLUCOSE 155 mg/dL (75-110); POTASSIUM 5.1 mmol/L (3.6-5.0); SODIUM 144.7 mmol/L (137-145); TOTAL PROTEIN 6.9 g/dL (6.3-8.2)
--- NOTE | 2017-08-04 15:12 | PDOC PROGRESS REPORT ---
Subjective Progress Note for:: 08/04/17 Subjective:: She was seen by the bedside, no new complaints Reason For Visit: ACUTE HYPERCAPNIC RESPITATORY FAILURE, T2DM Physical Exam Vital Signs: Temp Pulse Resp BP Pulse Ox 98.5 F 57 L 20 129/64 H 99 08/04/17 11:25 08/04/17 14:04 08/04/17 11:25 08/04/17 11:25 08/04/17 11:25 Intake & Output 08/03/17 08/04/17 08/05/17 06:59 06:59 06:59 Intake Total 1352 1453 459 Output Total 1400 900 Balance 1352 53 -441 Weight 158.7 kg 159.9 kg General appearance: PRESENT: no acute distress Head exam: PRESENT: atraumatic, normocephalic Eye exam: PRESENT: conjunctiva pink, EOMI, PERRLA Ear exam: PRESENT: normal external ear exam Mouth exam: PRESENT: moist, tongue midline Neck exam: PRESENT: full ROM Respiratory exam: PRESENT: clear to auscultation carter Cardiovascular exam: PRESENT: RRR, +S1, +S2 Pulses: PRESENT: normal dorsalis pedis pul, +2 pedal pulses bilateral Vascular exam: PRESENT: normal capillary refill GI/Abdominal exam: PRESENT: normal bowel sounds, soft Rectal exam: PRESENT: deferred Neurological exam: PRESENT: alert, awake, oriented to person, oriented to place , oriented to time, oriented to situation, CN II-XII grossly intact. ABSENT: motor sensory deficit Psychiatric exam: PRESENT: appropriate affect, normal mood Skin exam: PRESENT: dry, intact, warm Results Laboratory Results: 08/04/17 14:20 08/04/17 14:20 08/04/17 08/04/17 14:20 14:20 WBC 7.6 RBC 3.39 L Hgb 10.3 L Hct 31.7 L MCV 93 MCH 30.4 MCHC 32.5 RDW 15.5 H Plt Count 151 Seg Neutrophils % 62.4 Lymphocytes % 17.7 Monocytes % 11.7 Eosinophils % 6.2 H Basophils % 2.0 Absolute Neutrophils 4.8 Absolute Lymphocytes 1.4 Absolute Monocytes 0.9 Absolute Eosinophils 0.5 Absolute Basophils 0.2 Sodium 144.7 Potassium 5.1 H Chloride 109 H Carbon Dioxide 27 Anion Gap 9 BUN 36 H Creatinine 1.68 H Est GFR ( Amer) 36 L Est GFR (Non-Af Amer) 30 L Glucose 155 H Calcium 10.1 Total Bilirubin 0.5 AST 25 ALT 20 Alkaline Phosphatase 106 Total Protein 6.9 Albumin 3.4 L 07/31/17 07/31/17 07/31/17 21:50 21:50 21:50 Creatine Kinase 264 H CK-MB (CK-2) 2.34 Troponin I < 0.012 NT-Pro-B Natriuret Pep 92 08/01/17 08/01/17 08/01/17 03:03 03:03 09:35 Creatine Kinase 223 H 240 H CK-MB (CK-2) 2.12 Troponin I < 0.012 NT-Pro-B Natriuret Pep 08/01/17 09:35 Creatine Kinase CK-MB (CK-2) 2.15 Troponin I < 0.012 NT-Pro-B Natriuret Pep Impressions: Chest X-Ray 07/31/17 16:08 IMPRESSION: NO ACUTE RADIOGRAPHIC FINDING IN THE CHEST. Head MRI 08/01/17 00:00 IMPRESSION: NORMAL MRI OF THE BRAIN WITHOUT INTRAVENOUS GADOLINIUM CONTRAST. EVIDENCE OF ACUTE STROKE: NO. 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
[2017-08-04] MEDS: MONTELUKAST SODIUM 10 MG TABLET PO SCH (17:29)
--- NOTE | 2017-08-04 20:30 | EKG REPORT ---
SEVERITY:- ABNORMAL ECG - SINUS RHYTHM ATRIAL PREMATURE COMPLEX CONSIDER ANTEROSEPTAL INFARCT : Confirmed by: Melony Clancy MD 04-Aug-2017 20:28:49
[2017-08-04] MEDS: ATORVASTATIN CALCIUM 20 MG TABLET PO SCH (21:44)
[2017-08-05] MEDS: LEVOTHYROXINE SODIUM 0.15 MG TABLET PO SCH (06:16)
[2017-08-05] MEDS: LANSOPRAZOLE 30 MG TAB.RAP.DR PO SCH (06:16)
[2017-08-05] MEDS: AMLODIPINE BESYLATE 5 MG TABLET PO SCH (09:27)
[2017-08-05] MEDS: TOPIRAMATE 100 MG TABLET PO SCH ×2 (09:27→22:12)
[2017-08-05] MEDS: PREGABALIN 75 MG CAPSULE PO SCH ×2 (09:27→22:12)
[2017-08-05] MEDS: ENOXAPARIN SODIUM INJ 40 MG/0.4 ML DISP.SYRIN SUBCUT SCH (09:27)
[2017-08-05] MEDS: DULOXETINE HCL 30 MG CAPSULE.DR PO SCH ×2 (09:27→22:12)
[2017-08-05] MEDS: SITAGLIPTIN PHOSPHATE 50 MG TABLET PO SCH (09:28)
[2017-08-05] MEDS: LISINOPRIL 10 MG TABLET PO SCH ×2 (09:28→22:12)
[2017-08-05] MEDS: METOPROLOL SUCCINATE 50 MG TAB.SR.24H PO SCH (09:28)
[2017-08-05] MEDS: INSULIN GLARGINE,HUM.REC.ANLOG 300 UNIT/3 ML INSULN.PEN SUBCUT SCH (09:28)
--- NOTE | 2017-08-05 14:16 | PDOC PROGRESS REPORT ---
Subjective Progress Note for:: 08/05/17 Subjective:: She was to be discharged home today but she said there is no one at home, she has no ride , her son will be [place] from [place], [place] tomorrow Reason For Visit: ACUTE HYPERCAPNIC RESPITATORY FAILURE, T2DM Physical Exam Vital Signs: Temp Pulse Resp BP Pulse Ox 98.2 F 57 L 18 161/59 H 99 08/05/17 11:59 08/05/17 11:59 08/05/17 11:59 08/05/17 11:59 08/05/17 11:59 Intake & Output 08/04/17 08/05/17 08/06/17 06:59 06:59 06:59 Intake Total 1453 1175 Output Total 1400 1600 Balance 53 -425 Weight 159.9 kg 156.2 kg General appearance: PRESENT: no acute distress Eye exam: PRESENT: PERRLA Respiratory exam: PRESENT: clear to auscultation carter Cardiovascular exam: PRESENT: +S1, +S2 GI/Abdominal exam: PRESENT: soft Psychiatric exam: PRESENT: agitated Results Laboratory Results: 08/04/17 14:20 08/04/17 14:20 08/04/17 08/04/17 14:20 14:20 WBC 7.6 RBC 3.39 L Hgb 10.3 L Hct 31.7 L MCV 93 MCH 30.4 MCHC 32.5 RDW 15.5 H Plt Count 151 Seg Neutrophils % 62.4 Lymphocytes % 17.7 Monocytes % 11.7 Eosinophils % 6.2 H Basophils % 2.0 Absolute Neutrophils 4.8 Absolute Lymphocytes 1.4 Absolute Monocytes 0.9 Absolute Eosinophils 0.5 Absolute Basophils 0.2 Sodium 144.7 Potassium 5.1 H Chloride 109 H Carbon Dioxide 27 Anion Gap 9 BUN 36 H Creatinine 1.68 H Est GFR ( Amer) 36 L Est GFR (Non-Af Amer) 30 L Glucose 155 H Calcium 10.1 Total Bilirubin 0.5 AST 25 ALT 20 Alkaline Phosphatase 106 Total Protein 6.9 Albumin 3.4 L 07/31/17 23:00 Clean Catch Midstream Urine Culture - Final Pseudomonas Aeruginosa Enterobacter Cloacae 07/31/17 22:05 Foot - Right Gram Stain - Final 07/31/17 22:05 Foot - Right Wound Culture - Final Pseudomonas Aeruginosa Staphylococcus Aureus Skin Skyla 07/31/17 07/31/17 07/31/17 21:50 21:50 21:50 Creatine Kinase 264 H CK-MB (CK-2) 2.34 Troponin I < 0.012 NT-Pro-B Natriuret Pep 92 08/01/17 08/01/17 08/01/17 03:03 03:03 09:35 Creatine Kinase 223 H 240 H CK-MB (CK-2) 2.12 Troponin I < 0.012 NT-Pro-B Natriuret Pep 08/01/17 09:35 Creatine Kinase CK-MB (CK-2) 2.15 Troponin I < 0.012 NT-Pro-B Natriuret Pep Impressions: Chest X-Ray 07/31/17 16:08 IMPRESSION: NO ACUTE RADIOGRAPHIC FINDING IN THE CHEST. Head MRI 08/01/17 00:00 IMPRESSION: NORMAL MRI OF THE BRAIN WITHOUT INTRAVENOUS GADOLINIUM CONTRAST. EVIDENCE OF ACUTE STROKE: NO. 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
[2017-08-05] MEDS: MONTELUKAST SODIUM 10 MG TABLET PO SCH (17:49)
[2017-08-05] MEDS: INSULIN LISPRO 100 UNIT/ML 3 ML VIAL SUBCUT PRN (22:12)
[2017-08-05] MEDS: ATORVASTATIN CALCIUM 20 MG TABLET PO SCH (22:12)
[2017-08-06] MEDS: LANSOPRAZOLE 30 MG TAB.RAP.DR PO SCH (05:21)
[2017-08-06] MEDS: LEVOTHYROXINE SODIUM 0.15 MG TABLET PO SCH (05:21)
[2017-08-06] MEDS: METOPROLOL SUCCINATE 50 MG TAB.SR.24H PO SCH (10:01)
[2017-08-06] MEDS: DULOXETINE HCL 30 MG CAPSULE.DR PO SCH ×2 (10:03→21:28)
[2017-08-06] MEDS: LISINOPRIL 10 MG TABLET PO SCH ×2 (10:03→21:28)
[2017-08-06] MEDS: AMLODIPINE BESYLATE 5 MG TABLET PO SCH (10:04)
[2017-08-06] MEDS: PREGABALIN 75 MG CAPSULE PO SCH ×2 (10:04→21:28)
[2017-08-06] MEDS: TOPIRAMATE 100 MG TABLET PO SCH ×2 (10:05→21:28)
[2017-08-06] MEDS: ENOXAPARIN SODIUM INJ 40 MG/0.4 ML DISP.SYRIN SUBCUT SCH (10:05)
[2017-08-06] MEDS: SITAGLIPTIN PHOSPHATE 50 MG TABLET PO SCH (10:34)
[2017-08-06] MEDS: INSULIN GLARGINE,HUM.REC.ANLOG 300 UNIT/3 ML INSULN.PEN SUBCUT SCH (10:34)
[2017-08-06] MEDS ORDERED: IPRATROPIUM/ALBUTEROL 0.5-2.5 MG/3 ML AMPUL NEB PRN (12:30)
[2017-08-06] MEDS: INSULIN LISPRO 100 UNIT/ML 3 ML VIAL SUBCUT PRN ×2 (13:50→18:00)
[2017-08-06] MEDS: MONTELUKAST SODIUM 10 MG TABLET PO SCH (18:00)
--- NOTE | 2017-08-06 18:55 | PDOC DISCHARGE SUMMARY ---
General - Admit/Disc Date/PCP Admission Date/Primary Care Provider: 07/31/17 18:16 BRAD GIVENS MD Discharge Date: 08/06/17 - Discharge Diagnosis (1) Acute hypercapnic respiratory failure Is this a current diagnosis for this admission?: Yes (2) Hypoventilation associated with obesity Is this a current diagnosis for this admission?: Yes (3) Type 2 diabetes mellitus with diabetic polyneuropathy Is this a current diagnosis for this admission?: Yes (4) Metabolic encephalopathy Is this a current diagnosis for this admission?: Yes - Additional Information Discharge Activity: Activity As Tolerated Home Medications: Amlodipine Besylate [Norvasc 5 mg Tablet] 5 mg PO DAILY 07/31/17 Atorvastatin Calcium [Lipitor 20 mg Tablet] 20 mg PO QHS 07/31/17 Chlorpheniramine Maleate [Allergy Relief 4 mg Tablet] 4 mg PO Q6HP PRN 07/31/17 Dexlansoprazole [Dexilant 60 mg Capsule] 60 mg PO DAILY 07/31/17 Doxepin HCl 75 mg PO QHS 07/31/17 Duloxetine HCl [Cymbalta] 60 mg PO Q12 07/31/17 Insulin Glargine,Hum.rec.anlog [Lantus Solostar] 52 units SQ DAILY 07/31/17 Levothyroxine Sodium [Synthroid 0.15 mg Tablet] 0.15 mg PO DAILY 07/31/17 Linagliptin [Tradjenta] 5 mg PO DAILY 07/31/17 Lisinopril [Prinivil 40 mg Tablet] 40 mg PO Q12 07/31/17 Metoprolol Succinate [Toprol XL 200 mg Tablet] 200 mg PO DAILY 07/31/17 Mirabegron [Myrbetriq] 50 mg PO DAILY 07/31/17 Montelukast Sodium [Singulair 10 mg Tablet] 10 mg PO QPM 07/31/17 Pregabalin [Lyrica] 150 mg PO Q12 07/31/17 Topiramate [Topamax 100 mg Tablet] 100 mg PO Q12 07/31/17 History of Present Illness History of Present Illness: ONDINA ENRIQUEZ is a 72 year old female, she was transferred to the emergency room by EMS from home because of concern for hypoglycemia, there was no documentation of hypoglycemia but because she has a history of hypoglycemia in the past there was concern she is hypoglycemic, she is poorly responsive, lethargic the emergency room the blood work did not document any low blood sugar. The venous blood gas that was done revealed pH, 7.2 cc PCO2 37.0 the venous blood glucose was 115. The chest x-ray did not show any acute pathology , she is very obese the body mass index is 54.4. Arterial blood gas was done pH was 7.30, PCO2 56.3 PO2 125.7 bicarbonate 27.3 on FiO2 of 2 L this is consistent with acute hypercapnic respiratory failure, she is admitted to the hospital for management respiratory is supported with BiPAP machine. The apparent cause for the acute hypercapnic respiratory failure is due to obesity hypoventilation syndrome. Hospital Course Hospital Course: Patient was admitted for the management of acute hypercapnic respiratory failure related to obesity hypoventilation syndrome. She was managed with noninvasive positive pressure ventilation BiPAP machine with very good results, there was no evidence of pneumonia, she complained of extremity pain but opioid was avoided on this admission because of obesity related hypoventilation syndrome. She was counseled extensively of the need to stop using opioid for pain management, the best option for for chronic pain is to use simple analgesia , acetaminophen and also to be more active When she was admitted she was very stuporous Hardly able to engage in any meaningful conversation Physical Exam Vital Signs: Temp Pulse Resp BP Pulse Ox 97.2 F 55 L 18 125/73 97 08/06/17 15:14 08/06/17 15:14 08/06/17 15:14 08/06/17 15:14 08/06/17 15:14 Intake & Output 08/05/17 08/06/17 08/07/17 06:59 06:59 06:59 Intake Total 1175 1631 1509 Output Total 1600 1100 Balance -865 484 6536 Weight 156.2 kg 156.5 kg General appearance: PRESENT: no acute distress, obese Eye exam: PRESENT: PERRLA Respiratory exam: PRESENT: clear to auscultation carter Cardiovascular exam: PRESENT: +S1, +S2 GI/Abdominal exam: PRESENT: soft Neurological exam: PRESENT: alert, CN II-XII grossly intact Results Laboratory Results: 08/04/17 14:20 08/04/17 14:20 07/31/17 23:00 Blood Blood Culture - Final NO GROWTH IN 5 DAYS 07/31/17 21:50 Blood Blood Culture - Final NO GROWTH IN 5 DAYS 07/31/17 07/31/17 07/31/17 21:50 21:50 21:50 Creatine Kinase 264 H CK-MB (CK-2) 2.34 Troponin I < 0.012 NT-Pro-B Natriuret Pep 92 08/01/17 08/01/17 08/01/17 03:03 03:03 09:35 Creatine Kinase 223 H 240 H CK-MB (CK-2) 2.12 Troponin I < 0.012 NT-Pro-B Natriuret Pep 08/01/17 09:35 Creatine Kinase CK-MB (CK-2) 2.15 Troponin I < 0.012 NT-Pro-B Natriuret Pep Impressions: Chest X-Ray 07/31/17 16:08 IMPRESSION: NO ACUTE RADIOGRAPHIC FINDING IN THE CHEST. Head MRI 08/01/17 00:00 IMPRESSION: NORMAL MRI OF THE BRAIN WITHOUT INTRAVENOUS GADOLINIUM CONTRAST. EVIDENCE OF ACUTE STROKE: NO.
[2017-08-06] MEDS: ATORVASTATIN CALCIUM 20 MG TABLET PO SCH (21:28)
[2017-08-07] MEDS: LEVOTHYROXINE SODIUM 0.15 MG TABLET PO SCH (05:22)
[2017-08-07] MEDS: LANSOPRAZOLE 30 MG TAB.RAP.DR PO SCH (05:22)
[2017-08-07] MEDS: AMLODIPINE BESYLATE 5 MG TABLET PO SCH (09:36)
[2017-08-07] MEDS: DULOXETINE HCL 30 MG CAPSULE.DR PO SCH (09:36)
[2017-08-07] MEDS: METOPROLOL SUCCINATE 50 MG TAB.SR.24H PO SCH (09:37)
[2017-08-07] MEDS: TOPIRAMATE 100 MG TABLET PO SCH (09:37)
[2017-08-07] MEDS: PREGABALIN 75 MG CAPSULE PO SCH (09:37)
[2017-08-07] MEDS: ENOXAPARIN SODIUM INJ 40 MG/0.4 ML DISP.SYRIN SUBCUT SCH (09:38)
[2017-08-07] MEDS: LISINOPRIL 10 MG TABLET PO SCH (09:38)
[2017-08-07] MEDS: SITAGLIPTIN PHOSPHATE 50 MG TABLET PO SCH (09:42)
[2017-08-07] MEDS: INSULIN GLARGINE,HUM.REC.ANLOG 300 UNIT/3 ML INSULN.PEN SUBCUT SCH (09:42)
[2017-08-07 10:25] VITALS: BP 150/71
== END 2017-08-07 10:55 | disposition home health service (06) | DRG 205 ==
LOC: ER 13:42 → EH 18:16 → 3W 21:23
PROVIDERS: ADMIT Internal Medicine; ATTEND Internal Medicine
DX: E66.2 Morbid (severe) obesity with alveolar hypoventilation (principal); J96.02 Acute respiratory failure with hypercapnia; G93.41 Metabolic encephalopathy; J96.01 Acute respiratory failure with hypoxia; Z68.43 Body mass index [BMI] 50.0-59.9, adult; E78.00 Pure hypercholesterolemia, unspecified; E03.9 Hypothyroidism, unspecified; K21.9 Gastro-esophageal reflux disease without esophagitis; E11.22 Type 2 diabetes mellitus with diabetic chronic kidney disease; E11.42 Type 2 diabetes mellitus with diabetic polyneuropathy; I12.9 Hypertensive chronic kidney disease with stage 1 through stage 4 chronic kidney disease, or unspecified chronic kidney disease; N18.3 Chronic kidney disease, stage 3 (moderate); E11.649 Type 2 diabetes mellitus with hypoglycemia without coma; Z79.4 Long term (current) use of insulin; Z79.899 Other long term (current) drug therapy
CPT/HCPCS: 36415; 36600; 70551; 71010; 80048; 80053; 80061; 80076; 81001; 82150; 82550; 82553; 82803; 82962; 83036; 83690; 83735; 83880; 84100; 84439; 84443; 84484; 85025; 85610; 85730; 87040; 87070; 87077; 87086; 87088; 87186; 87205; 93005; 93010; 94660; 99285; G8978-GP; G8979-GP; J1650; J1815; J3490

== ENCOUNTER 2017-09-08 13:47 | Emergency (ER) | payer MEDICARE, MEDICAID ==
--- NOTE | 2017-09-08 15:37 | ER Document Report ---
ED General - General Mode of Arrival: Ambulatory Information source: Patient TRAVEL OUTSIDE OF THE [place] IN LAST 30 DAYS: No - General Chief Complaint: Wound Infection Stated Complaint: WOUND CHECK Time Seen by Provider: 09/08/17 15:06 Notes: Patient is a 72 year old female with a history of diabetes presents to the emergency department complaining of an worsening ulcer on her right great toe. Patient states that she recently had surgery 3 months ago on her big toe and has a follow up appointment next week. Patient states she felt that she needed her toe to be checked out [place] due to pain and feeling like the ulcer has gotten bigger. (MAYI TRINH) - Related Data Allergies/Adverse Reactions: aspirin [Aspirin] Allergy (Verified 09/08/17 13:51) Edema, GI UPSET morphine [Morphine] Allergy (Verified 09/08/17 13:51) ANAPHYLAXSIS, Facial swelling Past Medical History - General Information source: Patient - Social History Smoking Status: Never Smoker Chew tobacco use (# tins/day): No Frequency of alcohol use: None Drug Abuse: None Family History: Reviewed & Not Pertinent Patient has suicidal ideation: No Patient has homicidal ideation: No - Past Medical History Cardiac Medical History: Reports: Hx Hypercholesterolemia, Hx Hypertension Pulmonary Medical History: Reports: Hx Asthma Endocrine Medical History: Reports: Hx Diabetes Mellitus Type 2, Hx Hypothyroidism GI Medical History: Reports: Hx Gastroesophageal Reflux Disease, Hx Ulcer Musculoskeltal Medical History: Reports Hx Arthritis Psychiatric Medical History: Reports: Hx Depression Past Surgical History: Reports: Hx Cholecystectomy, Hx Hysterectomy, Hx Orthopedic Surgery - Immunizations Immunizations up to date: Yes Hx Diphtheria, Pertussis, Tetanus Vaccination: No Hx Pneumococcal Vaccination: 03/11/12 Review of Systems - Review of Systems Constitutional: No symptoms reported EENT: No symptoms reported Cardiovascular: No symptoms reported Respiratory: No symptoms reported Gastrointestinal: No symptoms reported Genitourinary: No symptoms reported Female Genitourinary: No symptoms reported Musculoskeletal: See HPI Skin: No symptoms reported Hematologic/Lymphatic: No symptoms reported Neurological/Psychological: No symptoms reported -: Yes All other systems reviewed and negative Physical Exam - Vital signs Vitals: Temp Pulse Resp BP Pulse Ox 98.5 F 90 18 170/73 H 100 09/08/17 14:08 09/08/17 14:08 09/08/17 14:08 09/08/17 14:08 09/08/17 14:08 - Notes Notes: GENERAL: Alert, interacts well. No acute distress. HEAD: Normocephalic, atraumatic. EYES: Pupils equal, round, and reactive to light. Extraocular movements intact. ENT: Oral mucosa moist, tongue midline. NECK: Full range of motion. Supple. Trachea midline. LUNGS: Clear to auscultation bilaterally, no wheezes, rales, or rhonchi. No respiratory distress. HEART: Regular rate and rhythm. No murmurs, gallops, or rubs. ABDOMEN: Soft, non-tender. Non-distended. Bowel sounds present in all 4 quadrants. EXTREMITIES: Moves all 4 extremities spontaneously. Able to ambulate with walker. Stasis dermatitis on the bilateral lower extremities. A pressure ulcer that is approximately 2 x 2 centimeters on the lateral aspect of her right great toe, no purulence, no foul smell, no evidence of an infection. NEUROLOGICAL: Alert and oriented x3. Normal speech. PSYCH: Normal affect, normal mood. SKIN: Warm, dry, normal turgor. No rashes or lesions noted. (MAYI TRINH) Course - Re-evaluation Re-evalutation: 09/08/17 15:49 Thanks no evidence of infection on exam with clear discharge around wound with no purulence and no foul smells. Will refer patient to [facility]. 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 Advised patient to stop using hydrogen peroxide and start to use Bactroban once a day and bandages as directed. Return precautions provided (WALE FERRARO) - Vital Signs Vital signs: Temp Pulse Resp BP Pulse Ox 98.5 F 81 18 155/62 H 97 09/08/17 14:08 09/08/17 16:50 09/08/17 16:50 09/08/17 16:50 09/08/17 16:50 Discharge - Discharge Clinical Impression: Ulcer of foot due to diabetes Qualifiers: Diabetic foot ulcer location: toe Diabetes mellitus type: due to underlying condition Laterality: right Non-pressure ulcer stage: unspecified non-pressure ulcer stage Qualified Code(s): E08.621 - Diabetes mellitus due to underlying condition with foot ulcer Condition: Good Disposition: HOME, SELF-CARE Instructions: Antibiotic Ointment Protection ([facility]), Soap Cleansing ([facility]) Additional Instructions: Please follow-up with wound clinic referral provided today. If symptoms worsen or any signs of fever or foul smell from ulcer please seek medical attention immediately. Prescriptions: Mupirocin Calcium [Bactroban] 15 gm TP DAILY #1 bottle Referrals: BRAD GIVENS MD [Primary Care Provider] - Follow up as needed Scribe Attestation: 09/09/17 23:11 I personally performed the services described documentation, reviewed and edited the documentation which was dictated to describe my presence, and it accurately records my words and actions. (WALE FERRARO) Scribe Documentation - Scribe Written by Nyla:: Nyla Warner, 09/08/2017 15:45 acting as scribe for :: Hiren
[2017-09-08 16:52] VITALS: BP 155/62
== END 2017-09-08 16:52 | disposition home or self-care (01) ==
LOC: ER 13:47
DX: E08.621 Diabetes mellitus due to underlying condition with foot ulcer (principal); E78.00 Pure hypercholesterolemia, unspecified; I10 Essential (primary) hypertension; E03.9 Hypothyroidism, unspecified; Z88.6 Allergy status to analgesic agent; Z90.49 Acquired absence of other specified parts of digestive tract; Z90.710 Acquired absence of both cervix and uterus
CPT/HCPCS: 99282

== ENCOUNTER → 2018-01-27 | Outpatient (CLI) | payer MEDICARE, MEDICAID ==
--- NOTE | 2018-01-29 17:15 | WOMENS IMAGING REPORT ---
EXAM DESCRIPTION: 3D SCREENING MAMMO BILAT COMPLETED DATE/TIME: 01/27/2018 2:48 pm REASON FOR STUDY: ROUTINE SCREENING;Z12.31 Z12.31 ENCNTR SCREEN MAMMOGRAM FOR MALIGNANT NEOPLASM OF JOSEPH COMPARISON: Multiple since 2008 TECHNIQUE: Standard craniocaudal and mediolateral oblique views of each breast recorded using digita l acquisition and breast tomosynthesis. LIMITATIONS: None. FINDINGS: Findings present which are benign by mammographic criteria. No suspicious masses, calcifi cations or architectural distortion. Pertinent benign findings: Benign bilateral breast parenchymal calcifications. Read with the assistance of CAD. .[facility] - R2 Cenova Version 1.3 .[facility] - R2 Cenova Version 1.3 .[facility] - R2 Cenova Version 2.4 .[facility] [place] - R2 Cenova Version 2.4 .[facility] - R2 Sheep Sorter Version 9.2 Benign mammographic findings may include one or more of the following: Smooth masses, popcorn/rim/co arse calcifications, asymmetries, post-procedure changes, and lesions with long-standing stability. IMPRESSION: BENIGN MAMMOGRAPHIC FINDINGS. BIRADS 2 BREAST DENSITY: b. There are scattered areas of fibroglandular density. BIRAD: 2 BENIGN FINDING(S) RECOMMENDATION: RECOMMENDATION: ROUTINE SCREENING Please continue yearly bilateral screening tomosynthesis in January 2019 COMMENT: The patient has been notified of the results by letter per SA requirements. Additional no tification policies are in place for contacting patient with suspicious or incomplete findings. Quality ID #[id number]: The [employer] recommends an annual screening mammogram for women aged 40 years or over. This facility utilizes a reminder system to ensure that all patients receive reminder letters, and/or direct phone calls for appointments. This includes reminders for routine scr eening mammograms, diagnostic mammograms, or other Breast Imaging Interventions when appropriate. Th is patient will be placed in the appropriate reminder system. The [employer] (ACR) has developed recommendations for screening MRI of the breast s in certain patient populations, to be used in conjunction with mammography. Breast MRI surveillanc e may be appropriate for women with more than 20% lifetime risk of developing breast cancer as deter mined by genetic testing, significant family history of the disease, or history of mantle radiation f or Hodgkins Disease. ACR Practice Guidelines 2008. DBT Technology DBT is a type of tomographic mammography. With conventional mammography, overlapping breast tissue ma y make lesions difficult to detect, even with good compression. DBT uses an x-ray tube that rotates a round the breast, taking images at different angles. These images are then combined to create thin sl ices of the breast that the radiologist can view as a 3D reconstruction. The [employer] unit can perform full-field digital mammograms (2D imaging); or DBT (3D imaging); or both, in a combination mode that quickly performs both the mammogram and the tomosynthesis scan while the breast is still compressed. PQRS 6045F: Fluoroscopic imaging is not utilized for breast tomosynthesis. TECHNICAL DOCUMENTATION: FINDING NUMBER: (1) ASSESSMENT: (1) JOB ID: [id number] [employer]- All Rights Reserved Reading location - IP/workstation name: [email or web address]
== END ==
LOC: WI 13:49
PROVIDERS: ATTEND Internal Medicine
DX: Z12.31 Encounter for screening mammogram for malignant neoplasm of breast (principal)
CPT/HCPCS: 77063; 77067

== ENCOUNTER 2018-03-03 19:46 | Inpatient (IN) | payer MEDICARE, MEDICAID ==
[2018-03-03] MEDS ORDERED: MAGNESIUM SULFATE/D5W 2 GM/200 ML RTUPB IV ONE (19:54)
[2018-03-03] MEDS ORDERED: IPRATROPIUM/ALBUTEROL 0.5-2.5 MG/3 ML AMPUL NEB ONE ×2 (20:07→20:10)
--- NOTE | 2018-03-03 20:15 | ER Document Report ---
ED Respiratory Problem - General Chief Complaint: Shortness Of Breath Stated Complaint: RESPIRATORY DISTRESS Time Seen by Provider: 03/03/18 20:09 Notes: The patient is a 72-year-old female, past medical history asthma, presents with increasing wheezing and shortness of breath for the past day. She called EMS who provided her with 125 mg IV Solu-Medrol, 10 mg albuterol and 1 Atrovent. She was satting 90% on room air and she does not wear oxygen at home. She denies a history of CHF. Denies chest pain, increased leg swelling, nausea, vomiting, back pain, hemoptysis, fevers, rash or syncope. TRAVEL OUTSIDE OF THE [place] IN LAST 30 DAYS: No - Related Data Allergies/Adverse Reactions: aspirin [Aspirin] Allergy (Verified 09/08/17 13:51) Edema, GI UPSET morphine [Morphine] Allergy (Verified 09/08/17 13:51) ANAPHYLAXSIS, Facial swelling Past Medical History - General Information source: Patient - Social History Smoking Status: Unknown if Ever Smoked Family History: Reviewed & Not Pertinent - Past Medical History Cardiac Medical History: Reports: Hx Hypercholesterolemia, Hx Hypertension Pulmonary Medical History: Reports: Hx Asthma Neurological Medical History: Denies: Hx Cerebrovascular Accident Endocrine Medical History: Reports: Hx Diabetes Mellitus Type 2, Hx Hypothyroidism Renal/ Medical History: Denies: Hx Peritoneal Dialysis GI Medical History: Reports: Hx Gastroesophageal Reflux Disease, Hx Ulcer Musculoskeletal Medical History: Reports Hx Arthritis Psychiatric Medical History: Reports: Hx Depression Past Surgical History: Reports: Hx Cholecystectomy, Hx Hysterectomy, Hx Orthopedic Surgery. Denies: Hx Pacemaker - Immunizations Immunizations up to date: Yes Hx Diphtheria, Pertussis, Tetanus Vaccination: No Hx Pneumococcal Vaccination: 03/11/12 Review of Systems - Review of Systems Notes: REVIEW OF SYSTEMS: CONSTITUTIONAL: -fevers, -chills EENT: -eye pain, -difficulty swallowing, -nasal congestion CARDIOVASCULAR: -chest pain, -syncope. RESPIRATORY: -cough, +SOB GASTROINTESTINAL: -abdominal pain, -nausea, -vomiting, -diarrhea GENITOURINARY: -dysuria, -hematuria MUSCULOSKELETAL: -back pain, -neck pain SKIN: -rash or skin lesions. HEMATOLOGIC: -easy bruising or bleeding. LYMPHATIC: -swollen, enlarged glands. NEUROLOGICAL: -altered mental status or loss of consciousness, -headache, - neurologic symptoms PSYCHIATRIC: -anxiety, -depression. ALL OTHER SYSTEMS REVIEWED AND NEGATIVE. Physical Exam - Vital signs Vitals: Resp Pulse Ox 9 L 100 03/03/18 19:52 03/03/18 19:52 - Notes Notes: PHYSICAL EXAMINATION: GENERAL: Well-appearing, well-nourished and in no acute distress. HEAD: Atraumatic, normocephalic. EYES: Pupils equal round and reactive to light, extraocular movements intact, sclera anicteric, conjunctiva are normal. ENT: nares patent, oropharynx clear without exudates. Moist mucous membranes. NECK: Normal range of motion, supple without lymphadenopathy LUNGS: Mild tachypnea, diffuse wheezing. HEART: Regular rate and rhythm without murmurs ABDOMEN: Soft, nontender, normoactive bowel sounds. No guarding, no rebound. No masses appreciated. EXTREMITIES: Normal range of motion, no pitting or edema. No cyanosis. NEUROLOGICAL: Cranial nerves grossly intact. Normal speech, normal gait. Normal sensory and motor exams. PSYCH: Normal mood, normal affect. SKIN: Warm, Dry, normal turgor, no rashes or lesions noted. Course - Re-evaluation Re-evalutation: Patient seen immediately on arrival due to her increased work of breathing and hypoxia to 90% on room air. After magnesium and breathing treatments, she feels much better and is no longer diffusely wheezing. Her x-ray shows possible new onset CHF, but her proBNP is normal. She does not have a leukocytosis, fevers or productive cough to suggest pneumonia. Patient does not have a risk factors for PE at this time and with rapid improvement of her symptoms with asthma medications, PE is less likely at this time. Patient requires admission due to her severe presentation and for further monitoring of her hypoxia. 03/03/18 22:[address] Givens and will admit patient to telemetry as inpatient. - Vital Signs Vital signs: Temp Pulse Resp BP Pulse Ox 98.2 F 19 181/77 H 100 03/03/18 20:01 03/03/18 20:01 03/03/18 20:01 03/03/18 20:02 - Laboratory Result Diagrams: 03/03/18 19:34 03/03/18 19:34 Laboratory results interpreted by me: 03/03/18 03/03/18 19:34 19:34 RBC 3.65 L Hgb 11.1 L Hct 33.6 L RDW 15.9 H Lymphocytes % 12.6 L Sodium 145.3 H Carbon Dioxide 32 H BUN 33 H Creatinine 1.61 H Est GFR ( Amer) 38 L Est GFR (Non-Af Amer) 31 L Glucose 152 H Alkaline Phosphatase 151 H Creatine Kinase 625 H Albumin 3.4 L - Diagnostic Test Radiology reviewed: Image reviewed, Reports reviewed Radiology results interpreted by me: CXR: Interstitial airspace opacities in the lung bases, left greater than right. This may represent early congestive heart failure. Also, an infectious process cannot be excluded. - EKG Interpretation by Me EKG shows normal: Sinus rhythm Rate: Normal When compared to previous EKG there are: No significant change Critical Care Note - Critical Care Note Total time excluding time spent on procedures (mins): 45 Discharge - Discharge Clinical Impression: Hypoxia, Chronic kidney disease, stage 4 (severe) Asthma exacerbation Qualifiers: Asthma severity: moderate Asthma persistence: unspecified Qualified Code(s): J45.901 - Unspecified asthma with (acute) exacerbation Hypertension Qualifiers: Hypertension type: unspecified Qualified Code(s): I10 - Essential (primary) hypertension Condition: Stable Disposition: ADMITTED INPATIENT Admitting Provider: Laisha Unit Admitted: Telemetry Referrals: BRAD GIVENS MD [Primary Care Provider] - Follow up as needed
[2018-03-03] MEDS: MAGNESIUM SULFATE/D5W 1 GM/100 ML RTUPB IV SCH ×2 (20:16→20:28)
[2018-03-03 20:25] LABS: VENOUS BLOOD BASE EXCESS 4.7 mmol/L; VENOUS BLOOD HCO3 30.9 mmol/L (20-32); VENOUS BLOOD PCO2 53.6 mmHg (35-63); VENOUS BLOOD PH 7.38 (7.30-7.42)
[2018-03-03 20:27] LABS: ABSOLUTE EOSINOPHILS # (AUTO) 0.2 10^3/uL (0.0-0.6); ABSOLUTE LYMPHOCYTES (AUTO) 1.1 10^3/uL (0.5-4.7); ABSOLUTE MONOCYTES (AUTO) 0.9 10^3/uL (0.1-1.4); ABSOLUTE NEUT (AUTO) 6.7 10^3/uL (1.7-8.2); BASOPHILS % (AUTO) 0.5 % (0-2); EOSINOPHILS % (AUTO) 2.1 % (0-6); HEMATOCRIT 33.6 % (36.0-47.0); HEMOGLOBIN 11.1 g/dL (12.0-15.5); LYMPHOCYTES % (AUTO) 12.6 % (13-45); MEAN CORPUSCULAR HEMOGLOBIN 30.4 pg (27.0-33.4); MEAN CORPUSCULAR VOLUME 92 fl (80-97); MONOCYTES % (AUTO) 9.7 % (3-13); PLATELET COUNT 209 10^3/uL (150-450); RED BLOOD COUNT 3.65 10^6/uL (3.72-5.28); RED CELL DISTRIBUTION WIDTH 15.9 % (11.5-14.0); SEGMENTED NEUTROPHILS % (AUTO) 75.1 % (42-78); TOTAL CELLS COUNTED % (AUTO) 100 %; WHITE BLOOD COUNT 8.9 10^3/uL (4.0-10.5)
--- NOTE | 2018-03-03 20:34 | RADIOLOGY REPORT (SQ) ---
EXAM DESCRIPTION: CHEST SINGLE VIEW COMPLETED DATE/TIME: 03/03/2018 8:13 pm REASON FOR STUDY: shortness of breaTH COMPARISON: 07/31/2017 EXAM PARAMETERS: NUMBER OF VIEWS: One view. TECHNIQUE: Single frontal radiographic view of the chest acquired. RADIATION DOSE: NA LIMITATIONS: None. FINDINGS: LUNGS AND PLEURA: Increased interstitial and airspace opacities in the lung bases. Left-s ided pleural effusion present. MEDIASTINUM AND HILAR STRUCTURES: No masses. Contour normal. HEART AND VASCULAR STRUCTURES: Heart normal in size. Normal vasculature. BONES: No acute findings. HARDWARE: None in the chest. OTHER: No other significant finding. IMPRESSION: Interstitial airspace opacities in the lung bases, left greater than right. This may re present early congestive heart failure. Also, an infectious process cannot be excluded. TECHNICAL DOCUMENTATION: JOB ID: [id number] [employer]- All Rights Reserved Reading location - IP/workstation name: [email or web address]
[2018-03-03 20:47] LABS: ALANINE AMINOTRANSFERASE 24 U/L (9-52); ALBUMIN 3.4 g/dL (3.5-5.0); ALKALINE PHOSPHATASE 151 U/L (38-126); ANION GAP 9 (5-19); ASPARTATE AMINO TRANSFERASE 31 U/L (14-36); BILIRUBIN,DIRECT 0.3 mg/dL (0.0-0.4); BILIRUBIN,TOTAL 0.3 mg/dL (0.2-1.3); BLOOD UREA NITROGEN 33 mg/dL (7-20); CALCIUM 8.7 mg/dL (8.4-10.2); CARBON DIOXIDE 32 mmol/L (22-30); CHLORIDE 104 mmol/L (98-107); CREATINE KINASE 625 U/L (30-135); GLUCOSE 152 mg/dL (75-110); SODIUM 145.3 mmol/L (137-145); TOTAL PROTEIN 6.9 g/dL (6.3-8.2)
[2018-03-03] MEDS ORDERED: FUROSEMIDE INJ/PF 40 MG/4 ML SDV IV ONE (20:51)
[2018-03-03 20:57] LABS: CREATINE KINASE MB 2.13 ng/mL (<4.55); NT PRO BNP 292 pg/mL (5-900)
[2018-03-03 21:00] LABS: TROPONIN I < 0.012 ng/mL
[2018-03-03] MEDS ORDERED: DEXTROSE 50%-WATER 25 GM/50 ML DISP.SYRIN IV PRN ×2 (23:22)
[2018-03-03] MEDS ORDERED: DEXTROSE 40% GEL 15 GM TUBE PO PRN ×2 (23:22)
[2018-03-03] MEDS ORDERED: GLUCAGON,HUMAN RECOMB 1 MG INJ IM PRN (23:22)
[2018-03-04] MEDS ORDERED: IPRATROPIUM/ALBUTEROL 0.5-2.5 MG/3 ML AMPUL NEB SCH
[2018-03-04 00:14] LABS: INTERNATIONAL RATION (INR) 0.97; PROTHROMBIN TIME 13.4 SEC (11.4-15.4)
[2018-03-04 00:15] LABS: PARTIAL THROMBOPLASTIN TIME 29.8 SEC (23.5-35.8)
[2018-03-04 00:29] LABS: LIPASE 211.1 U/L (23-300); PHOSPHORUS 4.4 mg/dL (2.5-4.5)
[2018-03-04 00:41] LABS: CREATINE KINASE MB 1.99 ng/mL (<4.55)
[2018-03-04 00:44] LABS: FREE T4 (FREE THYROXINE) 1.33 ng/dL (0.78-2.19)
[2018-03-04 00:47] LABS: TROPONIN I < 0.012 ng/mL
[2018-03-04 00:58] LABS: THYROID STIMULATING HORMONE 4.73 uIU/mL (0.47-4.68)
[2018-03-04 01:51] LABS: ARTERIAL BLOOD BASE EXCESS 3.2 mmol/L; ARTERIAL BLOOD HCO3 29.5 mmol/L (20-26); ARTERIAL BLOOD O2 SATURATION 96.2 % (94-98); ARTERIAL BLOOD PCO2 53.2 mmHg (35-45); ARTERIAL BLOOD PH 7.36 (7.35-7.45); ARTERIAL BLOOD PO2 87.2 mmHg (80-100); ARTERIAL BLOOD TOTAL CO2 31.1 mmol/L (21-25)
[2018-03-04 01:52] LABS: ARTERIAL BLOOD FIO2 3L
--- NOTE | 2018-03-04 02:22 | RADIOLOGY REPORT (SQ) ---
EXAM DESCRIPTION: CT CHEST WITHOUT IV CONTRAST COMPLETED DATE/TME: 03/04/2018 00:00 CLINICAL HISTORY: PNEUMONIA COMPARISON: None Available. TECHNIQUE: Axial CT images of the chest without IV contrast obtained from the thoracic inlet through the diaphragm. Coronal and sagittal reformatted images available. Suboptimal evaluation of the vasculature and solid organs and lack of IV contrast. DLP: 919.56 mGy-cm FINDINGS: Chest: Thyroid:No abnormalities of the visualized thyroid. Great Vessels:Great vessels have normal anatomic configuration. Thoracic Aorta: Atherosclerotic calcification of the thoracic aorta. Pulmonary arteries:The main pulmonary artery is not dilated. Heart: Coronary artery atherosclerosis. No cardiomegaly or significant pericardial effusion. Lymph Nodes:No enlarged mediastinal lymph nodes identified. Esophagus: Small hiatal hernia. Debris identified throughout the esophagus. Other:No additional findings. Lungs: Patchy bibasilar airspace opacities. No other abnormalities noted. Pleura:No pleural effusion or pneumothorax. Trachea/Airways: No acute abnormalities of the trachea. Bones:No destructive osseous lesions. Degenerative change of the spine. Upper Abdomen:Limited images of the upper abdomen demonstrate no definite abnormalities of visualized portions of the liver, gallbladder, pancreas, spleen, adrenal glands, or kidneys. IMPRESSION: 1. Minimal patchy bibasilar opacities may be related to atelectasis however given debris within the esophagus these findings could also be related to developing aspiration pneumonitis/pneumonia. 2. Coronary artery atherosclerosis. 3. Small hiatal hernia. This exam was performed according to our departmental dose-optimization program, which includes automated exposure control, adjustment of the mA and/or kV according to patient size and/or use of iterative reconstruction technique.
[2018-03-04] MEDS: BUDESONIDE/FORMOTEROL 160-4.5 MCG 60 PUFF/6 GM MDI IH SCH ×3 (03:03→22:42)
[2018-03-04] MEDS: IPRATROPIUM/ALBUTEROL 0.5-2.5 MG/3 ML AMPUL NEB SCH ×5 (04:27→20:28)
[2018-03-04] MEDS ORDERED: LEVOFLOXACIN 750 MG/D5W RTU 750 MG/150 ML RTUPB IV ONE (05:00)
[2018-03-04 06:30] LABS: ABSOLUTE LYMPHOCYTES (AUTO) 0.7 10^3/uL (0.5-4.7); ABSOLUTE MONOCYTES (AUTO) 0.1 10^3/uL (0.1-1.4); ABSOLUTE NEUT (AUTO) 8.8 10^3/uL (1.7-8.2); BASOPHILS % (AUTO) 0.1 % (0-2); HEMATOCRIT 35.9 % (36.0-47.0); HEMOGLOBIN 11.6 g/dL (12.0-15.5); LYMPHOCYTES % (AUTO) 7.8 % (13-45); MEAN CORPUSCULAR HGB CONC 32.3 g/dL (32.0-36.0); MEAN CORPUSCULAR VOLUME 93 fl (80-97); MONOCYTES % (AUTO) 0.8 % (3-13); PLATELET COUNT 204 10^3/uL (150-450); RED BLOOD COUNT 3.87 10^6/uL (3.72-5.28); RED CELL DISTRIBUTION WIDTH 15.8 % (11.5-14.0); SEGMENTED NEUTROPHILS % (AUTO) 91.3 % (42-78); TOTAL CELLS COUNTED % (AUTO) 100 %; WHITE BLOOD COUNT 9.6 10^3/uL (4.0-10.5)
[2018-03-04 06:50] LABS: ALANINE AMINOTRANSFERASE 25 U/L (9-52); ALBUMIN 3.6 g/dL (3.5-5.0); ALKALINE PHOSPHATASE 151 U/L (38-126); ANION GAP 13 (5-19); ASPARTATE AMINO TRANSFERASE 29 U/L (14-36); BILIRUBIN,DIRECT 0.3 mg/dL (0.0-0.4); BILIRUBIN,TOTAL 0.5 mg/dL (0.2-1.3); BLOOD UREA NITROGEN 32 mg/dL (7-20); CALCIUM 8.8 mg/dL (8.4-10.2); CARBON DIOXIDE 28 mmol/L (22-30); CHLORIDE 104 mmol/L (98-107); CHOLESTEROL 164.64 mg/dL (0-200); CREATINE KINASE 537 U/L (30-135); GLUCOSE 282 mg/dL (75-110); POTASSIUM 5.2 mmol/L (3.6-5.0); TOTAL PROTEIN 7.2 g/dL (6.3-8.2); TRIGLYCERIDES 68 mg/dL (<150)
[2018-03-04] MEDS: HEPARIN SOD (PORCINE) 5,000 UNIT/ML 1 ML SYRINGE SUBCUT SCH ×3 (06:51→22:36)
[2018-03-04 07:02] LABS: DIRECT LDL 49 mg/dL (<100); NT PRO BNP 449 pg/mL (5-900)
[2018-03-04 07:10] LABS: TROPONIN I < 0.012 ng/mL
--- NOTE | 2018-03-04 07:52 | EKG REPORT ---
SEVERITY:- BORDERLINE ECG - CONSIDER ANTERIOR INFARCT SINUS RHYTHM : Confirmed by: Melony Clancy MD 04-Mar-2018 07:50:55
[2018-03-04] MEDS: INSULIN REG, HUMAN 100 UNIT/ML 3 ML VIAL (PYX) SUBCUT PRN ×4 (08:29→22:38)
[2018-03-04 13:55] LABS: CREATINE KINASE MB 1.72 ng/mL (<4.55)
[2018-03-04 14:00] LABS: TROPONIN I < 0.012 ng/mL
[2018-03-04] MEDS ORDERED: (PENDING PHARMACY ID) (Metoprolol Succinate [Toprol Xl 200 Mg Tablet] 200 MG) PO SCH (17:30)
[2018-03-04] MEDS ORDERED: (PENDING PHARMACY ID) (Mirabegron [Myrbetriq] 50 MG) PO SCH (17:30)
[2018-03-04] MEDS ORDERED: (PENDING PHARMACY ID) (Linagliptin [Tradjenta] 5 MG) PO SCH (17:30)
[2018-03-04] MEDS ORDERED: (PENDING PHARMACY ID) (Insulin Aspart [Novolog Flexpen] 5 UNIT) SUBCUT SCH (17:30)
[2018-03-04] MEDS: INSULIN LISPRO 100 UNIT/ML 3 ML VIAL SUBCUT SCH (18:13)
[2018-03-04] MEDS: DULOXETINE HCL 30 MG CAPSULE.DR PO SCH (18:24)
[2018-03-04] MEDS: LANSOPRAZOLE 30 MG TAB.RAP.DR PO SCH (18:24)
[2018-03-04] MEDS: METOPROLOL SUCCINATE 50 MG TAB.SR.24H PO SCH (18:25)
[2018-03-04] MEDS: SITAGLIPTIN PHOSPHATE 50 MG TABLET PO SCH (18:25)
[2018-03-04] MEDS: LEVOTHYROXINE SODIUM 0.15 MG TABLET PO SCH (18:25)
[2018-03-04] MEDS: AMLODIPINE BESYLATE 5 MG TABLET PO SCH (18:25)
[2018-03-04] MEDS: INSULIN GLARGINE,HUM.REC.ANLOG 300 UNIT/3 ML INSULN.PEN SUBCUT SCH (18:26)
--- NOTE | 2018-03-04 20:51 | PDOC H&P ---
History of Present Illness Admission Date/PCP: 03/03/18 22:28 BRAD GVIENS MD History of Present Illness: ONDINA ENRIQUEZ is a 72 year old female,She has a history of severe morbid obesity, chronic kidney disease stage III, diabetes mellitus type 2, sedentary lifestyle, she came to the emergency room last night for evaluation of shortness of breath, respiratory distress,in the emergency room she was audibly wheezing, she was treated with bronchodilators and she was subsequently offered hospital admission for continuity of care. CT chest was done, it demonstrated patchy bibasilar opacities that could represent pneumonia or atelectasis.The arterial blood gas on FiO2 3 L showed mixed acid-base disorder, relative hypoxemia Past Medical History Cardiac Medical History: Reports: Hyperlipidema, Hypertension Pulmonary Medical History: Reports: Asthma Endocrine Medical History: Reports: Diabetes Mellitus Type 2, Hypothyroidism, Obesity GI Medical History: Reports: Gastroesophageal Reflux Disease Musculoskeltal Medical History: Reports: Arthritis Psychiatric Medical History: Reports: Depression Hematology: Reports: Anemia Past Surgical History Past Surgical History: Reports: Cholecystectomy, Hysterectomy, Orthopedic Surgery Denies: Pacemaker Social History Smoking Status: Never Smoker Frequency of Alcohol Use: None Hx Recreational Drug Use: No Drugs: None Hx Prescription Drug Abuse: No - Advance Directive Resuscitation Status: Full Code Family History Family History: Reviewed & Not Pertinent Parental Family History Reviewed: Yes Children Family History Reviewed: Yes Sibling(s) Family History Reviewed.: Yes Medication/Allergy Home Medications: Amlodipine Besylate [Norvasc 5 mg Tablet] 5 mg PO DAILY 03/04/18 Atorvastatin Calcium [Lipitor 20 mg Tablet] 20 mg PO QHS 03/04/18 Dexlansoprazole [Dexilant 60 mg Capsule] 60 mg PO DAILY 03/04/18 Doxepin HCl 75 mg PO QHS 03/04/18 Duloxetine HCl [Cymbalta] 60 mg PO Q12 03/04/18 Insulin Aspart [Novolog Flexpen] 5 unit SUBCUT AC 03/04/18 Insulin Glargine,Hum.rec.anlog [Lantus Solostar] 52 unit SQ DAILY 03/04/18 Levothyroxine Sodium [Synthroid 0.15 mg Tablet] 0.15 mg PO Q6AM 03/04/18 Linagliptin [Tradjenta] 5 mg PO DAILY 03/04/18 Metoprolol Succinate [Toprol XL 200 mg Tablet] 200 mg PO DAILY 03/04/18 Mirabegron [Myrbetriq] 50 mg PO DAILY 03/04/18 Montelukast Sodium [Singulair 10 mg Tablet] 10 mg PO QHS 03/04/18 Pregabalin [Lyrica] 150 mg PO Q12 03/04/18 Allergies/Adverse Reactions: aspirin [Aspirin] Allergy (Verified 09/08/17 13:51) Edema, GI UPSET morphine [Morphine] Allergy (Verified 09/08/17 13:51) ANAPHYLAXSIS, Facial swelling Review of Systems Constitutional: ABSENT: chills, fever(s), headache(s), weight gain, weight loss Eyes: ABSENT: visual disturbances Ears: ABSENT: hearing changes Cardiovascular: ABSENT: chest pain, dyspnea on exertion, edema, orthropnea, palpitations Respiratory: PRESENT: cough, dyspnea, sputum. ABSENT: hemoptysis Gastrointestinal: ABSENT: abdominal pain, constipation, diarrhea, hematemesis, hematochezia, nausea, vomiting Genitourinary: ABSENT: dysuria, hematuria Musculoskeletal: ABSENT: joint swelling Integumentary: ABSENT: rash, wounds Neurological: ABSENT: abnormal gait, abnormal speech, confusion, dizziness, focal weakness, syncope Psychiatric: ABSENT: anxiety, depression, homidical ideation, suicidal ideation Endocrine: ABSENT: cold intolerance, heat intolerance, menstrual abnormalities, polydipsia, polyuria Hematologic/Lymphatic: ABSENT: easy bleeding, easy bruising, lymphadenopathy Physical Exam Vital Signs: Temp Pulse Resp BP Pulse Ox 97.9 F 81 18 148/67 H 97 03/04/18 16:00 03/04/18 16:12 03/04/18 16:12 03/04/18 16:00 03/04/18 13:05 Intake & Output 03/03/18 03/04/18 03/05/18 06:59 06:59 06:59 Intake Total 200 1030 Balance 200 1030 Weight 152.9 kg General appearance: PRESENT: morbidly obese Head exam: PRESENT: atraumatic, normocephalic Eye exam: PRESENT: PERRLA Mouth exam: PRESENT: moist Neck exam: PRESENT: full ROM Respiratory exam: PRESENT: accessory muscle use, wheezes Cardiovascular exam: PRESENT: RRR, +S1, +S2 Vascular exam: PRESENT: normal capillary refill GI/Abdominal exam: PRESENT: normal bowel sounds, soft Rectal exam: PRESENT: deferred Neurological exam: PRESENT: alert, CN II-XII grossly intact Psychiatric exam: PRESENT: appropriate affect, normal mood Skin exam: PRESENT: dry, intact, warm Results Laboratory Results: 03/04/18 05:57 03/04/18 05:57 03/03/18 03/03/18 03/03/18 23:54 23:54 23:54 WBC RBC Hgb Hct MCV MCH MCHC RDW Plt Count Seg Neutrophils % Lymphocytes % Monocytes % Eosinophils % Basophils % Absolute Neutrophils Absolute Lymphocytes Absolute Monocytes Absolute Eosinophils Absolute Basophils Carbonic Acid HCO3/H2CO3 Ratio ABG pH ABG pCO2 ABG pO2 ABG HCO3 ABG O2 Saturation ABG Base Excess FiO2 Sodium Potassium Chloride Carbon Dioxide Anion Gap BUN Creatinine Est GFR ( Amer) Est GFR (Non-Af Amer) Glucose Calcium Phosphorus 4.4 Magnesium 2.1 Total Bilirubin AST ALT Alkaline Phosphatase Ammonia < 8.7 L Total Protein Albumin Triglycerides Cholesterol LDL Cholesterol Direct VLDL Cholesterol HDL Cholesterol Amylase 67 Lipase 211.1 TSH 4.73 H Free T4 1.33 03/04/18 03/04/18 03/04/18 01:40 05:57 05:57 WBC 9.6 RBC 3.87 Hgb 11.6 L Hct 35.9 L MCV 93 MCH 30.0 MCHC 32.3 RDW 15.8 H Plt Count 204 Seg Neutrophils % 91.3 H Lymphocytes % 7.8 L Monocytes % 0.8 L Eosinophils % 0.0 Basophils % 0.1 Absolute Neutrophils 8.8 H Absolute Lymphocytes 0.7 Absolute Monocytes 0.1 Absolute Eosinophils 0.0 Absolute Basophils 0.0 Carbonic Acid 1.60 H HCO3/H2CO3 Ratio 18:1 ABG pH 7.36 ABG pCO2 53.2 H ABG pO2 87.2 ABG HCO3 29.5 H ABG O2 Saturation 96.2 ABG Base Excess 3.2 FiO2 3L Sodium 145.0 Potassium 5.2 H Chloride 104 Carbon Dioxide 28 Anion Gap 13 BUN 32 H Creatinine 1.61 H Est GFR ( Amer) 38 L Est GFR (Non-Af Amer) 31 L Glucose 282 H Calcium 8.8 Phosphorus Magnesium Total Bilirubin 0.5 AST 29 ALT 25 Alkaline Phosphatase 151 H Ammonia Total Protein 7.2 Albumin 3.6 Triglycerides 68 Cholesterol 164.64 LDL Cholesterol Direct 49 VLDL Cholesterol 14.0 HDL Cholesterol 76 Amylase Lipase TSH Free T4 03/03/18 03/03/18 03/04/18 23:54 23:54 05:57 Creatine Kinase 603 H 537 H CK-MB (CK-2) 1.99 Troponin I < 0.012 NT-Pro-B Natriuret Pep 03/04/18 03/04/18 03/04/18 05:57 13:01 13:01 Creatine Kinase 425 H CK-MB (CK-2) 2.00 1.72 Troponin I < 0.012 < 0.012 NT-Pro-B Natriuret Pep 449 Impressions: Chest X-Ray 03/03/18 20:02 IMPRESSION: Interstitial airspace opacities in the lung bases, left greater than right. This may represent early congestive heart failure. Also, an infectious process cannot be excluded. Chest CT 03/04/18 00:00 IMPRESSION: 1. Minimal patchy bibasilar opacities may be related to atelectasis however given debris within the esophagus these findings could also be related to developing aspiration pneumonitis/pneumonia. 2. Coronary artery atherosclerosis. 3. Small hiatal hernia. This exam was performed according to our departmental dose-optimization program, which includes automated exposure control, adjustment of the mA and/or kV according to patient size and/or use of iterative reconstruction technique. Assessment & Plan - Diagnosis (1) Status asthmaticus Qualifiers: Asthma severity: unspecified severity Asthma persistence: persistent Qualified Code(s): J45.902 - Unspecified asthma with status asthmaticus Is this a current diagnosis for this admission?: Yes Plan: Patient presents with status asthmaticus treatment initiated in the emergency room did not completely resolve patient's symptoms she require frequent bronchodilators every 2 hours with inhaled glucocorticoid. She had intravenous systemic glucocorticoid in the emergency room (2) Pneumonia Qualifiers: Pneumonia type: due to unspecified organism Laterality: unspecified laterality Lung location: unspecified part of lung Qualified Code(s): J18.9 - Pneumonia, unspecified organism Is this a current diagnosis for this admission?: Yes Plan: Start IV antibiotic (3) Mixed acid base balance disorder Is this a current diagnosis for this admission?: Yes (4) Morbid obesity Is this a current diagnosis for this admission?: Yes (5) Type 2 diabetes mellitus Qualifiers: Diabetes mellitus prison insulin use: without termite treater helper use Diabetes mellitus complication status: with unspecified complications Qualified Code(s) : E11.8 - Type 2 diabetes mellitus with unspecified complications Is this a current diagnosis for this admission?: Yes (6) Chronic kidney disease, stage III (moderate) Is this a current diagnosis for this admission?: Yes
[2018-03-04] MEDS ORDERED: (PENDING PHARMACY ID) (Doxepin Hcl [Doxepin Hcl] 75 MG) PO SCH (22:00)
[2018-03-04] MEDS: DOXEPIN HCL 25 MG CAPSULE PO SCH (22:35)
[2018-03-04] MEDS: ATORVASTATIN CALCIUM 20 MG TABLET PO SCH (22:35)
[2018-03-04] MEDS: PREGABALIN 75 MG CAPSULE PO SCH (22:35)
[2018-03-04] MEDS: MONTELUKAST SODIUM 10 MG TABLET PO SCH (22:42)
[2018-03-05] MEDS: IPRATROPIUM/ALBUTEROL 0.5-2.5 MG/3 ML AMPUL NEB SCH ×6 (00:39→20:14)
[2018-03-05] MEDS: LEVOTHYROXINE SODIUM 0.15 MG TABLET PO SCH (05:38)
[2018-03-05] MEDS: DULOXETINE HCL 30 MG CAPSULE.DR PO SCH ×2 (05:38→17:38)
[2018-03-05] MEDS: LANSOPRAZOLE 30 MG TAB.RAP.DR PO SCH (05:39)
[2018-03-05] MEDS: HEPARIN SOD (PORCINE) 5,000 UNIT/ML 1 ML SYRINGE SUBCUT SCH ×3 (05:39→22:52)
[2018-03-05 05:56] LABS: ABSOLUTE EOSINOPHILS # (AUTO) 0.1 10^3/uL (0.0-0.6); ABSOLUTE LYMPHOCYTES (AUTO) 1.3 10^3/uL (0.5-4.7); ABSOLUTE NEUT (AUTO) 6.5 10^3/uL (1.7-8.2); BASOPHILS % (AUTO) 0.3 % (0-2); EOSINOPHILS % (AUTO) 1.3 % (0-6); HEMATOCRIT 30.1 % (36.0-47.0); HEMOGLOBIN 10.1 g/dL (12.0-15.5); LYMPHOCYTES % (AUTO) 14.3 % (13-45); MEAN CORPUSCULAR HEMOGLOBIN 30.5 pg (27.0-33.4); MEAN CORPUSCULAR HGB CONC 33.4 g/dL (32.0-36.0); MEAN CORPUSCULAR VOLUME 91 fl (80-97); MONOCYTES % (AUTO) 11.5 % (3-13); PLATELET COUNT 177 10^3/uL (150-450); SEGMENTED NEUTROPHILS % (AUTO) 72.6 % (42-78); TOTAL CELLS COUNTED % (AUTO) 100 %; WHITE BLOOD COUNT 8.9 10^3/uL (4.0-10.5)
[2018-03-05 06:40] LABS: ALANINE AMINOTRANSFERASE 22 U/L (9-52); ALBUMIN 2.8 g/dL (3.5-5.0); ALKALINE PHOSPHATASE 100 U/L (38-126); ANION GAP 8 (5-19); ASPARTATE AMINO TRANSFERASE 24 U/L (14-36); BILIRUBIN,DIRECT 0.3 mg/dL (0.0-0.4); BILIRUBIN,TOTAL 0.3 mg/dL (0.2-1.3); BLOOD UREA NITROGEN 40 mg/dL (7-20); CALCIUM 8.6 mg/dL (8.4-10.2); CARBON DIOXIDE 28 mmol/L (22-30); CHLORIDE 106 mmol/L (98-107); GLUCOSE 134 mg/dL (75-110); POTASSIUM 4.9 mmol/L (3.6-5.0); SODIUM 141.9 mmol/L (137-145); TOTAL PROTEIN 5.9 g/dL (6.3-8.2)
[2018-03-05] MEDS: INSULIN LISPRO 100 UNIT/ML 3 ML VIAL SUBCUT SCH ×3 (08:02→16:26)
[2018-03-05] MEDS: BUDESONIDE/FORMOTEROL 160-4.5 MCG 60 PUFF/6 GM MDI IH SCH ×2 (09:32→22:52)
[2018-03-05] MEDS: AMLODIPINE BESYLATE 5 MG TABLET PO SCH (09:32)
[2018-03-05] MEDS: LEVOFLOXACIN 750 MG/D5W RTU 750 MG/150 ML RTUPB IV SCH (09:32)
[2018-03-05] MEDS: TRAMADOL HCL 50 MG TABLET PO PRN ×2 (09:32→17:47)
[2018-03-05] MEDS: SITAGLIPTIN PHOSPHATE 50 MG TABLET PO SCH (09:32)
[2018-03-05] MEDS: PREGABALIN 75 MG CAPSULE PO SCH ×2 (09:33→22:52)
[2018-03-05] MEDS: INSULIN GLARGINE,HUM.REC.ANLOG 300 UNIT/3 ML INSULN.PEN SUBCUT SCH (09:33)
[2018-03-05] MEDS: METOPROLOL SUCCINATE 50 MG TAB.SR.24H PO SCH (17:38)
--- NOTE | 2018-03-05 20:56 | PDOC PROGRESS REPORT ---
Subjective Progress Note for:: 03/05/18 Subjective:: She was seen by the bedside, she is admitted for the management of status asthmaticus, pneumonia, in the setting of severe morbid obesity Reason For Visit: ACUTE HYPOXEMIC RESPIRATORY FAILURE DUE TO ACUTE Physical Exam Vital Signs: Temp Pulse Resp BP Pulse Ox 98.6 F 65 20 142/72 H 93 03/05/18 19:17 03/05/18 19:17 03/05/18 16:10 03/05/18 19:17 03/05/18 19:17 Intake & Output 03/04/18 03/05/18 03/06/18 06:59 06:59 06:59 Intake Total 200 1452 1320 Balance 200 1452 1320 Weight 152.9 kg 155.7 kg General appearance: PRESENT: mild distress Eye exam: PRESENT: PERRLA Respiratory exam: PRESENT: rhonchi Cardiovascular exam: PRESENT: +S1, +S2 GI/Abdominal exam: PRESENT: soft Neurological exam: PRESENT: alert, CN II-XII grossly intact Results Laboratory Results: 03/05/18 05:34 03/05/18 05:34 03/05/18 03/05/18 05:34 05:34 WBC 8.9 RBC 3.30 L Hgb 10.1 L Hct 30.1 L MCV 91 MCH 30.5 MCHC 33.4 RDW 16.0 H Plt Count 177 Seg Neutrophils % 72.6 Lymphocytes % 14.3 Monocytes % 11.5 Eosinophils % 1.3 Basophils % 0.3 Absolute Neutrophils 6.5 Absolute Lymphocytes 1.3 Absolute Monocytes 1.0 Absolute Eosinophils 0.1 Absolute Basophils 0.0 Sodium 141.9 Potassium 4.9 Chloride 106 Carbon Dioxide 28 Anion Gap 8 BUN 40 H Creatinine 1.78 H Est GFR ( Amer) 34 L Est GFR (Non-Af Amer) 28 L Glucose 134 H Calcium 8.6 Total Bilirubin 0.3 AST 24 ALT 22 Alkaline Phosphatase 100 Total Protein 5.9 L Albumin 2.8 L 03/03/18 03/03/18 03/04/18 23:54 23:54 05:57 Creatine Kinase 603 H 537 H CK-MB (CK-2) 1.99 Troponin I < 0.012 NT-Pro-B Natriuret Pep 03/04/18 03/04/18 03/04/18 05:57 13:01 13:01 Creatine Kinase 425 H CK-MB (CK-2) 2.00 1.72 Troponin I < 0.012 < 0.012 NT-Pro-B Natriuret Pep 449 Impressions: Chest X-Ray 03/03/18 20:02 IMPRESSION: Interstitial airspace opacities in the lung bases, left greater than right. This may represent early congestive heart failure. Also, an infectious process cannot be excluded. Chest CT 03/04/18 00:00 IMPRESSION: 1. Minimal patchy bibasilar opacities may be related to atelectasis however given debris within the esophagus these findings could also be related to developing aspiration pneumonitis/pneumonia. 2. Coronary artery atherosclerosis. 3. Small hiatal hernia. This exam was performed according to our departmental dose-optimization program, which includes automated exposure control, adjustment of the mA and/or kV according to patient size and/or use of iterative reconstruction technique. Assessment & Plan - Diagnosis (1) Status asthmaticus Qualifiers: Asthma severity: unspecified severity Asthma persistence: persistent Qualified Code(s): J45.902 - Unspecified asthma with status asthmaticus Is this a current diagnosis for this admission?: Yes (2) Pneumonia Qualifiers: Pneumonia type: due to unspecified organism Laterality: unspecified laterality Lung location: unspecified part of lung Qualified Code(s): J18.9 - Pneumonia, unspecified organism Is this a current diagnosis for this admission?: Yes (3) Mixed acid base balance disorder Is this a current diagnosis for this admission?: Yes (4) Morbid obesity Is this a current diagnosis for this admission?: Yes (5) Type 2 diabetes mellitus Qualifiers: Diabetes mellitus termite treater insulin use: without correction use Diabetes mellitus complication status: with unspecified complications Qualified Code(s) : E11.8 - Type 2 diabetes mellitus with unspecified complications Is this a current diagnosis for this admission?: Yes (6) Chronic kidney disease, stage III (moderate) Is this a current diagnosis for this admission?: Yes - Plan Summary Plan Summary: She will continue the antibiotic, bronchodilators
[2018-03-05] MEDS: DOXEPIN HCL 25 MG CAPSULE PO SCH (22:51)
[2018-03-05] MEDS: MONTELUKAST SODIUM 10 MG TABLET PO SCH (22:52)
[2018-03-05] MEDS: ATORVASTATIN CALCIUM 20 MG TABLET PO SCH (22:52)
[2018-03-06] MEDS: IPRATROPIUM/ALBUTEROL 0.5-2.5 MG/3 ML AMPUL NEB SCH ×7 (00:32→23:41)
[2018-03-06] MEDS: DULOXETINE HCL 30 MG CAPSULE.DR PO SCH ×2 (06:08→17:10)
[2018-03-06] MEDS: LANSOPRAZOLE 30 MG TAB.RAP.DR PO SCH (06:08)
[2018-03-06] MEDS: LEVOTHYROXINE SODIUM 0.15 MG TABLET PO SCH (06:09)
[2018-03-06] MEDS: HEPARIN SOD (PORCINE) 5,000 UNIT/ML 1 ML SYRINGE SUBCUT SCH ×3 (06:10→22:16)
[2018-03-06 06:48] LABS: ABSOLUTE BASOPHILS # (AUTO) 0.1 10^3/uL (0.0-0.2); ABSOLUTE EOSINOPHILS # (AUTO) 0.4 10^3/uL (0.0-0.6); ABSOLUTE LYMPHOCYTES (AUTO) 1.5 10^3/uL (0.5-4.7); ABSOLUTE NEUT (AUTO) 6.5 10^3/uL (1.7-8.2); BASOPHILS % (AUTO) 0.6 % (0-2); EOSINOPHILS % (AUTO) 4.2 % (0-6); HEMATOCRIT 31.4 % (36.0-47.0); HEMOGLOBIN 10.3 g/dL (12.0-15.5); LYMPHOCYTES % (AUTO) 16.1 % (13-45); MEAN CORPUSCULAR HEMOGLOBIN 30.2 pg (27.0-33.4); MEAN CORPUSCULAR HGB CONC 32.8 g/dL (32.0-36.0); MEAN CORPUSCULAR VOLUME 92 fl (80-97); MONOCYTES % (AUTO) 10.9 % (3-13); PLATELET COUNT 161 10^3/uL (150-450); RED BLOOD COUNT 3.41 10^6/uL (3.72-5.28); RED CELL DISTRIBUTION WIDTH 15.8 % (11.5-14.0); SEGMENTED NEUTROPHILS % (AUTO) 68.2 % (42-78); TOTAL CELLS COUNTED % (AUTO) 100 %; WHITE BLOOD COUNT 9.6 10^3/uL (4.0-10.5)
[2018-03-06 07:13] LABS: ALANINE AMINOTRANSFERASE 25 U/L (9-52); ALBUMIN 2.7 g/dL (3.5-5.0); ALKALINE PHOSPHATASE 103 U/L (38-126); ANION GAP 9 (5-19); ASPARTATE AMINO TRANSFERASE 20 U/L (14-36); BILIRUBIN,DIRECT 0.3 mg/dL (0.0-0.4); BILIRUBIN,TOTAL 0.3 mg/dL (0.2-1.3); BLOOD UREA NITROGEN 49 mg/dL (7-20); CARBON DIOXIDE 29 mmol/L (22-30); CHLORIDE 105 mmol/L (98-107); GLUCOSE 95 mg/dL (75-110); POTASSIUM 4.6 mmol/L (3.6-5.0); SODIUM 142.9 mmol/L (137-145); TOTAL PROTEIN 5.6 g/dL (6.3-8.2)
[2018-03-06] MEDS: INSULIN LISPRO 100 UNIT/ML 3 ML VIAL SUBCUT SCH ×3 (08:23→17:05)
[2018-03-06] MEDS: PREGABALIN 75 MG CAPSULE PO SCH ×2 (10:10→22:17)
[2018-03-06] MEDS: AMLODIPINE BESYLATE 5 MG TABLET PO SCH (10:10)
[2018-03-06] MEDS: INSULIN GLARGINE,HUM.REC.ANLOG 300 UNIT/3 ML INSULN.PEN SUBCUT SCH (10:10)
[2018-03-06] MEDS: SITAGLIPTIN PHOSPHATE 50 MG TABLET PO SCH (10:10)
[2018-03-06] MEDS: LEVOFLOXACIN 750 MG/D5W RTU 750 MG/150 ML RTUPB IV SCH (10:11)
[2018-03-06] MEDS: BUDESONIDE/FORMOTEROL 160-4.5 MCG 60 PUFF/6 GM MDI IH SCH ×2 (10:11→22:16)
[2018-03-06] MEDS: TRAMADOL HCL 50 MG TABLET PO PRN (10:13)
--- NOTE | 2018-03-06 13:05 | PDOC PROGRESS REPORT ---
Subjective Progress Note for:: 03/06/18 Subjective:: She was seen by the bedside, she had episode of hypoglycemia today Reason For Visit: ACUTE HYPOXEMIC RESPIRATORY FAILURE DUE TO ACUTE Physical Exam Vital Signs: Temp Pulse Resp BP Pulse Ox 98.0 F 60 16 151/62 H 93 03/06/18 08:23 03/06/18 12:17 03/06/18 12:17 03/06/18 08:23 03/06/18 08:23 Intake & Output 03/05/18 03/06/18 03/07/18 06:59 06:59 06:59 Intake Total 1452 1320 Balance 1452 1320 Weight 155.7 kg 154 kg General appearance: PRESENT: no acute distress Eye exam: PRESENT: PERRLA Respiratory exam: PRESENT: rhonchi Cardiovascular exam: PRESENT: +S1, +S2 GI/Abdominal exam: PRESENT: soft Neurological exam: PRESENT: alert Results Laboratory Results: 03/06/18 05:45 03/06/18 05:45 03/06/18 03/06/18 05:45 05:45 WBC 9.6 RBC 3.41 L Hgb 10.3 L Hct 31.4 L MCV 92 MCH 30.2 MCHC 32.8 RDW 15.8 H Plt Count 161 Seg Neutrophils % 68.2 Lymphocytes % 16.1 Monocytes % 10.9 Eosinophils % 4.2 Basophils % 0.6 Absolute Neutrophils 6.5 Absolute Lymphocytes 1.5 Absolute Monocytes 1.0 Absolute Eosinophils 0.4 Absolute Basophils 0.1 Sodium 142.9 Potassium 4.6 Chloride 105 Carbon Dioxide 29 Anion Gap 9 BUN 49 H Creatinine 1.87 H Est GFR ( Amer) 32 L Est GFR (Non-Af Amer) 26 L Glucose 95 Calcium 9.0 Total Bilirubin 0.3 AST 20 ALT 25 Alkaline Phosphatase 103 Total Protein 5.6 L Albumin 2.7 L 03/03/18 03/03/18 03/04/18 23:54 23:54 05:57 Creatine Kinase 603 H 537 H CK-MB (CK-2) 1.99 Troponin I < 0.012 NT-Pro-B Natriuret Pep 03/04/18 03/04/18 03/04/18 05:57 13:01 13:01 Creatine Kinase 425 H CK-MB (CK-2) 2.00 1.72 Troponin I < 0.012 < 0.012 NT-Pro-B Natriuret Pep 449 Impressions: Chest X-Ray 03/03/18 20:02 IMPRESSION: Interstitial airspace opacities in the lung bases, left greater than right. This may represent early congestive heart failure. Also, an infectious process cannot be excluded. Chest CT 03/04/18 00:00 IMPRESSION: 1. Minimal patchy bibasilar opacities may be related to atelectasis however given debris within the esophagus these findings could also be related to developing aspiration pneumonitis/pneumonia. 2. Coronary artery atherosclerosis. 3. Small hiatal hernia. This exam was performed according to our departmental dose-optimization program, which includes automated exposure control, adjustment of the mA and/or kV according to patient size and/or use of iterative reconstruction technique. Assessment & Plan - Diagnosis (1) Status asthmaticus Qualifiers: Asthma severity: unspecified severity Asthma persistence: persistent Qualified Code(s): J45.902 - Unspecified asthma with status asthmaticus Is this a current diagnosis for this admission?: Yes (2) Pneumonia Qualifiers: Pneumonia type: due to unspecified organism Laterality: unspecified laterality Lung location: unspecified part of lung Qualified Code(s): J18.9 - Pneumonia, unspecified organism Is this a current diagnosis for this admission?: Yes (3) Mixed acid base balance disorder Is this a current diagnosis for this admission?: Yes (4) Morbid obesity Is this a current diagnosis for this admission?: Yes (5) Type 2 diabetes mellitus Qualifiers: Diabetes mellitus clay stain mixer insulin use: without assisted use Diabetes mellitus complication status: with unspecified complications Qualified Code(s) : E11.8 - Type 2 diabetes mellitus with unspecified complications Is this a current diagnosis for this admission?: Yes (6) Chronic kidney disease, stage III (moderate) Is this a current diagnosis for this admission?: Yes
[2018-03-06 17:03] LABS: APPEARANCE,URINE SLIGHTLY-CLOUDY; BILIRUBIN,URINE NEGATIVE (NEGATIVE); COLOR,URINE YELLOW; GLUCOSE, URINE NEGATIVE (NEGATIVE); KETONES,URINE NEGATIVE (NEGATIVE); LEUKOCYTE ESTERASE,URINE TRACE (NEGATIVE); NITRITE,URINE NEGATIVE (NEGATIVE); PROTEIN,URINE 100 mg/dL (NEGATIVE); URINE SPECIFIC GRAVITY 1.011; UROBILINOGEN,URINE NEGATIVE mg/dL (<2.0)
[2018-03-06 17:11] LABS: URINE AMPHETAMINES SCREEN NEGATIVE; URINE BARBITURATES SCREEN NEGATIVE; URINE BENZODIAZEPINES SCREEN NEGATIVE; URINE COCAINE SCREEN NEGATIVE; URINE MARIJUANA (THC) SCREEN NEGATIVE; URINE METHADONE SCREEN NEGATIVE; URINE PHENCYCLIDINE SCREEN NEGATIVE
[2018-03-06] MEDS: METOPROLOL SUCCINATE 50 MG TAB.SR.24H PO SCH (17:12)
[2018-03-06 17:16] LABS: UR PRO/CREAT RATIO RESULT 2.3 mg/mg (0.0-0.2); URINE CREATININE 53.9 mg/dL (15-278)
[2018-03-06] MEDS: MONTELUKAST SODIUM 10 MG TABLET PO SCH (22:17)
[2018-03-06] MEDS: ATORVASTATIN CALCIUM 20 MG TABLET PO SCH (22:17)
[2018-03-06] MEDS: DOXEPIN HCL 25 MG CAPSULE PO SCH (22:17)
[2018-03-07] MEDS: IPRATROPIUM/ALBUTEROL 0.5-2.5 MG/3 ML AMPUL NEB SCH ×5 (03:14→19:53)
[2018-03-07] MEDS: HEPARIN SOD (PORCINE) 5,000 UNIT/ML 1 ML SYRINGE SUBCUT SCH ×3 (05:15→21:52)
[2018-03-07] MEDS: LANSOPRAZOLE 30 MG TAB.RAP.DR PO SCH (05:39)
[2018-03-07] MEDS: DULOXETINE HCL 30 MG CAPSULE.DR PO SCH ×2 (05:39→18:06)
[2018-03-07] MEDS: LEVOTHYROXINE SODIUM 0.15 MG TABLET PO SCH (05:39)
[2018-03-07] MEDS: INSULIN LISPRO 100 UNIT/ML 3 ML VIAL SUBCUT SCH ×3 (10:00→18:08)
[2018-03-07] MEDS: LEVOFLOXACIN 750 MG/D5W RTU 750 MG/150 ML RTUPB IV SCH (10:01)
[2018-03-07] MEDS: SITAGLIPTIN PHOSPHATE 50 MG TABLET PO SCH (10:01)
[2018-03-07] MEDS: PREGABALIN 75 MG CAPSULE PO SCH ×2 (10:01→21:52)
[2018-03-07] MEDS: AMLODIPINE BESYLATE 5 MG TABLET PO SCH (10:01)
[2018-03-07] MEDS: BUDESONIDE/FORMOTEROL 160-4.5 MCG 60 PUFF/6 GM MDI IH SCH ×2 (10:05→21:52)
[2018-03-07 13:33] LABS: ARTERIAL BLOOD BASE EXCESS 4.1 mmol/L; ARTERIAL BLOOD FIO2 2L; ARTERIAL BLOOD H2CO3 1.65 mmol/L (1.05-1.35); ARTERIAL BLOOD HCO3 30.4 mmol/L (20-26); ARTERIAL BLOOD O2 SATURATION 96.4 % (94-98); ARTERIAL BLOOD PCO2 54.8 mmHg (35-45); ARTERIAL BLOOD PH 7.36 (7.35-7.45); ARTERIAL BLOOD PO2 89.1 mmHg (80-100); ARTERIAL BLOOD TOTAL CO2 32.1 mmol/L (21-25)
[2018-03-07] MEDS: INSULIN GLARGINE,HUM.REC.ANLOG 300 UNIT/3 ML INSULN.PEN SUBCUT SCH (13:34)
--- NOTE | 2018-03-07 15:23 | PDOC PROGRESS REPORT ---
Subjective Progress Note for:: 03/07/18 Subjective:: Patient is very somnolent, ABG showed compensated respiratory acidosis Reason For Visit: ACUTE HYPOXEMIC RESPIRATORY FAILURE DUE TO ACUTE Physical Exam Vital Signs: Temp Pulse Resp BP Pulse Ox 99.0 F 57 L 16 149/80 H 99 03/07/18 07:48 03/07/18 12:03 03/07/18 12:03 03/07/18 07:48 03/07/18 07:48 Intake & Output 03/06/18 03/07/18 03/08/18 06:59 06:59 06:59 Intake Total 1320 1038 150 Output Total 200 Balance 1320 838 150 Weight 154 kg 156.1 kg General appearance: PRESENT: no acute distress Eye exam: PRESENT: PERRLA Respiratory exam: PRESENT: clear to auscultation carter Cardiovascular exam: PRESENT: +S1, +S2 GI/Abdominal exam: PRESENT: soft Neurological exam: PRESENT: alert Results Laboratory Results: 03/06/18 05:45 03/06/18 05:45 03/06/18 03/07/18 16:30 13:15 Carbonic Acid 1.65 H HCO3/H2CO3 Ratio 18:1 ABG pH 7.36 ABG pCO2 54.8 H ABG pO2 89.1 ABG HCO3 30.4 H ABG O2 Saturation 96.4 ABG Base Excess 4.1 FiO2 2L Urine Color YELLOW Urine Appearance SLIGHTLY-CLOUDY Urine pH 5.0 Ur Specific Yeso 1.011 Urine Protein 100 H Urine Glucose (UA) NEGATIVE Urine Ketones NEGATIVE Urine Blood NEGATIVE Urine Nitrite NEGATIVE Ur Leukocyte Esterase TRACE H Urine WBC (Auto) 22 Urine RBC (Auto) 2 03/03/18 03/03/18 03/04/18 23:54 23:54 05:57 Creatine Kinase 603 H 537 H CK-MB (CK-2) 1.99 Troponin I < 0.012 NT-Pro-B Natriuret Pep 03/04/18 03/04/18 03/04/18 05:57 13:01 13:01 Creatine Kinase 425 H CK-MB (CK-2) 2.00 1.72 Troponin I < 0.012 < 0.012 NT-Pro-B Natriuret Pep 449 Impressions: Chest X-Ray 03/03/18 20:02 IMPRESSION: Interstitial airspace opacities in the lung bases, left greater than right. This may represent early congestive heart failure. Also, an infectious process cannot be excluded. Chest CT 03/04/18 00:00 IMPRESSION: 1. Minimal patchy bibasilar opacities may be related to atelectasis however given debris within the esophagus these findings could also be related to developing aspiration pneumonitis/pneumonia. 2. Coronary artery atherosclerosis. 3. Small hiatal hernia. This exam was performed according to our departmental dose-optimization program, which includes automated exposure control, adjustment of the mA and/or kV according to patient size and/or use of iterative reconstruction technique. Assessment & Plan - Diagnosis (1) Status asthmaticus Qualifiers: Asthma severity: unspecified severity Asthma persistence: persistent Qualified Code(s): J45.902 - Unspecified asthma with status asthmaticus Is this a current diagnosis for this admission?: Yes (2) Pneumonia Qualifiers: Pneumonia type: due to unspecified organism Laterality: unspecified laterality Lung location: unspecified part of lung Qualified Code(s): J18.9 - Pneumonia, unspecified organism Is this a current diagnosis for this admission?: Yes (3) Mixed acid base balance disorder Is this a current diagnosis for this admission?: Yes (4) Morbid obesity Is this a current diagnosis for this admission?: Yes (5) Type 2 diabetes mellitus Qualifiers: Diabetes mellitus custodial insulin use: without intermodal dispatcher use Diabetes mellitus complication status: with unspecified complications Qualified Code(s) : E11.8 - Type 2 diabetes mellitus with unspecified complications Is this a current diagnosis for this admission?: Yes (6) Chronic kidney disease, stage III (moderate) Is this a current diagnosis for this admission?: Yes - Plan Summary Plan Summary: Continue treatment
[2018-03-07] MEDS: METOPROLOL SUCCINATE 50 MG TAB.SR.24H PO SCH (18:06)
[2018-03-07] MEDS: MONTELUKAST SODIUM 10 MG TABLET PO SCH (21:52)
[2018-03-07] MEDS: DOXEPIN HCL 25 MG CAPSULE PO SCH (21:52)
[2018-03-07] MEDS: ATORVASTATIN CALCIUM 20 MG TABLET PO SCH (21:52)
[2018-03-08] MEDS: IPRATROPIUM/ALBUTEROL 0.5-2.5 MG/3 ML AMPUL NEB SCH ×7 (00:20→23:52)
[2018-03-08] MEDS: LEVOTHYROXINE SODIUM 0.15 MG TABLET PO SCH (06:05)
[2018-03-08] MEDS: DULOXETINE HCL 30 MG CAPSULE.DR PO SCH ×2 (06:05→17:42)
[2018-03-08] MEDS: LANSOPRAZOLE 30 MG TAB.RAP.DR PO SCH (06:06)
[2018-03-08] MEDS: HEPARIN SOD (PORCINE) 5,000 UNIT/ML 1 ML SYRINGE SUBCUT SCH ×3 (06:06→23:06)
[2018-03-08] MEDS: INSULIN LISPRO 100 UNIT/ML 3 ML VIAL SUBCUT SCH ×3 (08:40→17:47)
[2018-03-08] MEDS: SITAGLIPTIN PHOSPHATE 50 MG TABLET PO SCH (10:34)
[2018-03-08] MEDS: LEVOFLOXACIN 750 MG/D5W RTU 750 MG/150 ML RTUPB IV SCH (10:34)
[2018-03-08] MEDS: AMLODIPINE BESYLATE 5 MG TABLET PO SCH (10:34)
[2018-03-08] MEDS: PREGABALIN 75 MG CAPSULE PO SCH ×2 (10:34→23:08)
[2018-03-08] MEDS: INSULIN GLARGINE,HUM.REC.ANLOG 300 UNIT/3 ML INSULN.PEN SUBCUT SCH ×2 (17:13→23:28)
[2018-03-08] MEDS: METOPROLOL SUCCINATE 50 MG TAB.SR.24H PO SCH (17:42)
[2018-03-08] MEDS: BUDESONIDE/FORMOTEROL 160-4.5 MCG 60 PUFF/6 GM MDI IH SCH ×2 (17:47→23:09)
[2018-03-08] MEDS: INSULIN REG, HUMAN 100 UNIT/ML 3 ML VIAL (PYX) SUBCUT PRN (17:50)
--- NOTE | 2018-03-08 20:34 | PDOC PROGRESS REPORT ---
Subjective Progress Note for:: 03/08/18 Subjective:: Patient is seen by the bedside she is improving Reason For Visit: ACUTE HYPOXEMIC RESPIRATORY FAILURE DUE TO ACUTE Physical Exam Vital Signs: Temp Pulse Resp BP Pulse Ox 98.7 F 61 18 146/47 H 94 03/08/18 15:49 03/08/18 15:52 03/08/18 15:52 03/08/18 15:49 03/08/18 15:52 Intake & Output 03/07/18 03/08/18 03/09/18 06:59 06:59 06:59 Intake Total 1038 1023 1458 Output Total 200 Balance 838 1023 1458 Weight 156.1 kg 153.5 kg General appearance: PRESENT: no acute distress Respiratory exam: PRESENT: clear to auscultation carter Cardiovascular exam: PRESENT: +S1, +S2 GI/Abdominal exam: PRESENT: soft Neurological exam: PRESENT: alert, CN II-XII grossly intact Results Laboratory Results: 03/06/18 05:45 03/06/18 05:45 03/06/18 16:30 Clean Catch Midstream Urine Culture - Final Lactobacillus (Vaginal Skyla) Mixed Urogenital Skyla 03/03/18 03/03/18 03/04/18 23:54 23:54 05:57 Creatine Kinase 603 H 537 H CK-MB (CK-2) 1.99 Troponin I < 0.012 NT-Pro-B Natriuret Pep 03/04/18 03/04/18 03/04/18 05:57 13:01 13:01 Creatine Kinase 425 H CK-MB (CK-2) 2.00 1.72 Troponin I < 0.012 < 0.012 NT-Pro-B Natriuret Pep 449 Impressions: Chest X-Ray 03/03/18 20:02 IMPRESSION: Interstitial airspace opacities in the lung bases, left greater than right. This may represent early congestive heart failure. Also, an infectious process cannot be excluded. Chest CT 03/04/18 00:00 IMPRESSION: 1. Minimal patchy bibasilar opacities may be related to atelectasis however given debris within the esophagus these findings could also be related to developing aspiration pneumonitis/pneumonia. 2. Coronary artery atherosclerosis. 3. Small hiatal hernia. This exam was performed according to our departmental dose-optimization program, which includes automated exposure control, adjustment of the mA and/or kV according to patient size and/or use of iterative reconstruction technique. Assessment & Plan - Diagnosis (1) Status asthmaticus Qualifiers: Asthma severity: unspecified severity Asthma persistence: persistent Qualified Code(s): J45.902 - Unspecified asthma with status asthmaticus Is this a current diagnosis for this admission?: Yes (2) Pneumonia Qualifiers: Pneumonia type: due to unspecified organism Laterality: unspecified laterality Lung location: unspecified part of lung Qualified Code(s): J18.9 - Pneumonia, unspecified organism Is this a current diagnosis for this admission?: Yes (3) Mixed acid base balance disorder Is this a current diagnosis for this admission?: Yes (4) Morbid obesity Is this a current diagnosis for this admission?: Yes (5) Type 2 diabetes mellitus Qualifiers: Diabetes mellitus fci insulin use: without fci use Diabetes mellitus complication status: with unspecified complications Qualified Code(s) : E11.8 - Type 2 diabetes mellitus with unspecified complications Is this a current diagnosis for this admission?: Yes (6) Chronic kidney disease, stage III (moderate) Is this a current diagnosis for this admission?: Yes
[2018-03-08] MEDS: ATORVASTATIN CALCIUM 20 MG TABLET PO SCH (23:09)
[2018-03-08] MEDS: MONTELUKAST SODIUM 10 MG TABLET PO SCH (23:09)
[2018-03-08] MEDS: DOXEPIN HCL 25 MG CAPSULE PO SCH (23:23)
[2018-03-09] MEDS: TRAMADOL HCL 50 MG TABLET PO PRN ×2 (01:09→14:42)
[2018-03-09] MEDS: IPRATROPIUM/ALBUTEROL 0.5-2.5 MG/3 ML AMPUL NEB SCH ×5 (03:36→19:57)
[2018-03-09] MEDS: LEVOTHYROXINE SODIUM 0.15 MG TABLET PO SCH (05:27)
[2018-03-09] MEDS: HEPARIN SOD (PORCINE) 5,000 UNIT/ML 1 ML SYRINGE SUBCUT SCH ×2 (05:27→14:39)
[2018-03-09] MEDS: LANSOPRAZOLE 30 MG TAB.RAP.DR PO SCH (05:28)
[2018-03-09] MEDS: DULOXETINE HCL 30 MG CAPSULE.DR PO SCH ×2 (05:28→17:10)
[2018-03-09] MEDS: AMLODIPINE BESYLATE 5 MG TABLET PO SCH (09:14)
[2018-03-09] MEDS: SITAGLIPTIN PHOSPHATE 50 MG TABLET PO SCH (09:14)
[2018-03-09] MEDS: PREGABALIN 75 MG CAPSULE PO SCH (09:14)
[2018-03-09] MEDS: INSULIN LISPRO 100 UNIT/ML 3 ML VIAL SUBCUT SCH ×3 (09:15→16:07)
[2018-03-09] MEDS: BUDESONIDE/FORMOTEROL 160-4.5 MCG 60 PUFF/6 GM MDI IH SCH (09:15)
[2018-03-09] MEDS: INSULIN REG, HUMAN 100 UNIT/ML 3 ML VIAL (PYX) SUBCUT PRN ×2 (09:16→17:10)
[2018-03-09] MEDS: LEVOFLOXACIN 750 MG/D5W RTU 750 MG/150 ML RTUPB IV SCH (09:20)
[2018-03-09] MEDS: METOPROLOL SUCCINATE 50 MG TAB.SR.24H PO SCH (17:26)
--- NOTE | 2018-03-09 18:42 | PDOC DISCHARGE SUMMARY ---
General - Admit/Disc Date/PCP Admission Date/Primary Care Provider: 03/03/18 22:28 BRAD GIVENS MD Discharge Date: 03/09/18 - Discharge Diagnosis (1) Status asthmaticus Is this a current diagnosis for this admission?: Yes (2) Pneumonia Is this a current diagnosis for this admission?: Yes (3) Mixed acid base balance disorder Is this a current diagnosis for this admission?: Yes (4) Morbid obesity Is this a current diagnosis for this admission?: Yes (5) Type 2 diabetes mellitus Is this a current diagnosis for this admission?: Yes (6) Chronic kidney disease, stage III (moderate) Is this a current diagnosis for this admission?: Yes - Additional Information Resuscitation Status: Full Code Prescriptions: Budesonide/Formoterol Fumarate [Symbicort HFA 160-4.5 mcg Inhaler 6 gm] 2 puff IH Q12 #2 inhaler Levofloxacin [Levaquin 750 mg Tablet] 750 mg PO DAILY #5 tablet Home Medications: Amlodipine Besylate [Norvasc 5 mg Tablet] 5 mg PO DAILY 03/04/18 Atorvastatin Calcium [Lipitor 20 mg Tablet] 20 mg PO QHS 03/04/18 Dexlansoprazole [Dexilant 60 mg Capsule] 60 mg PO DAILY 03/04/18 Doxepin HCl 75 mg PO QHS 03/04/18 Duloxetine HCl [Cymbalta] 60 mg PO Q12 03/04/18 Insulin Aspart [Novolog Flexpen] 5 unit SUBCUT AC 03/04/18 Insulin Glargine,Hum.rec.anlog [Lantus Solostar] 52 unit SQ DAILY 03/04/18 Levothyroxine Sodium [Synthroid 0.15 mg Tablet] 0.15 mg PO Q6AM 03/04/18 Linagliptin [Tradjenta] 5 mg PO DAILY 03/04/18 Metoprolol Succinate [Toprol XL 200 mg Tablet] 200 mg PO DAILY 03/04/18 Mirabegron [Myrbetriq] 50 mg PO DAILY 03/04/18 Montelukast Sodium [Singulair 10 mg Tablet] 10 mg PO QHS 03/04/18 Pregabalin [Lyrica] 150 mg PO Q12 03/04/18 Budesonide/Formoterol Fumarate [Symbicort HFA 160-4.5 mcg Inhaler 6 gm] 2 puff IH Q12 #2 inhaler 03/09/18 Levofloxacin [Levaquin 750 mg Tablet] 750 mg PO DAILY #5 tablet 03/09/18 History of Present Illness History of Present Illness: ONDINA ENRIQUEZ is a 72 year old female,She has a history of severe morbid obesity, chronic kidney disease stage III, diabetes mellitus type 2, sedentary lifestyle, she came to the emergency room last night for evaluation of shortness of breath, respiratory distress,in the emergency room she was audibly wheezing, she was treated with bronchodilators and she was subsequently offered hospital admission for continuity of care. CT chest was done, it demonstrated patchy bibasilar opacities that could represent pneumonia or atelectasis.The arterial blood gas on FiO2 3 L showed mixed acid-base disorder, relative hypoxemia Hospital Course Hospital Course: Patient was admitted for the management of status asthmaticus, pneumonia, with background of severe morbid obesity, on admission she had acute hypoxemic respiratory failure, she did not require noninvasive ventilation with BiPAP, she was treated with supplemental oxygen with nasal cannula at 2 L/min. She also required bronchodilators frequently every 2-3 hours, combined inhaled corticosteroid/long-acting beta agonist, systemic corticosteroid was avoided because of diabetes mellitus morbid obesity and pneumonia, patient did respond to treatment. She was seen by physical therapy, transfer was an issue, with increased risk of fall, she be discharged home, with home physical therapy Physical Exam Vital Signs: Temp Pulse Resp BP Pulse Ox 98.7 F 62 18 118/47 L 99 03/09/18 16:29 03/09/18 16:32 03/09/18 16:32 03/09/18 16:29 03/09/18 16:32 Intake & Output 03/08/18 03/09/18 03/10/18 06:59 06:59 06:59 Intake Total 1023 1458 845 Output Total 437 Balance 1023 1458 408 Weight 153.5 kg 155.5 kg General appearance: PRESENT: no acute distress, well-developed, well-nourished Head exam: PRESENT: atraumatic, normocephalic Eye exam: PRESENT: conjunctiva pink, EOMI, PERRLA Ear exam: PRESENT: normal external ear exam Mouth exam: PRESENT: moist, tongue midline Neck exam: PRESENT: full ROM Respiratory exam: PRESENT: clear to auscultation carter Cardiovascular exam: PRESENT: RRR, +S1, +S2 Vascular exam: PRESENT: normal capillary refill GI/Abdominal exam: PRESENT: normal bowel sounds, soft Rectal exam: PRESENT: deferred Neurological exam: PRESENT: alert, awake, oriented to person, oriented to place , oriented to time, oriented to situation, CN II-XII grossly intact Psychiatric exam: PRESENT: appropriate affect, normal mood Skin exam: PRESENT: dry, intact, warm Results Laboratory Results: 03/06/18 05:45 03/06/18 05:45 03/04/18 00:40 Blood Blood Culture - Final NO GROWTH IN 5 DAYS 03/03/18 23:54 Blood Blood Culture - Final NO GROWTH IN 5 DAYS 03/03/18 03/03/18 03/04/18 23:54 23:54 05:57 Creatine Kinase 603 H 537 H CK-MB (CK-2) 1.99 Troponin I < 0.012 NT-Pro-B Natriuret Pep 03/04/18 03/04/18 03/04/18 05:57 13:01 13:01 Creatine Kinase 425 H CK-MB (CK-2) 2.00 1.72 Troponin I < 0.012 < 0.012 NT-Pro-B Natriuret Pep 449 Impressions: Chest X-Ray 03/03/18 20:02 IMPRESSION: Interstitial airspace opacities in the lung bases, left greater than right. This may represent early congestive heart failure. Also, an infectious process cannot be excluded. Chest CT 03/04/18 00:00 IMPRESSION: 1. Minimal patchy bibasilar opacities may be related to atelectasis however given debris within the esophagus these findings could also be related to developing aspiration pneumonitis/pneumonia. 2. Coronary artery atherosclerosis. 3. Small hiatal hernia. This exam was performed according to our departmental dose-optimization program, which includes automated exposure control, adjustment of the mA and/or kV according to patient size and/or use of iterative reconstruction technique. Qualifiers - * PATIENT BEING DISCHARGED WITH ANY OF THE FOLLOWING DIAGNOSIS: No
[2018-03-09 19:29] VITALS: BP 147/70
== END 2018-03-09 20:37 | disposition home or self-care (01) | DRG 193 ==
LOC: ER 19:46 → EH 22:28 → 3S 03-04 01:00
PROVIDERS: ADMIT Internal Medicine; ATTEND Internal Medicine
PROC: 3E0F73Z Introduction of Anti-inflammatory into Respiratory Tract, Via Natural or Artificial Opening (ICD-10-PCS; principal; 2018-03-03)
DX: J18.9 Pneumonia, unspecified organism (principal); J96.01 Acute respiratory failure with hypoxia; J45.902 Unspecified asthma with status asthmaticus; Z68.43 Body mass index [BMI] 50.0-59.9, adult; E87.4 Mixed disorder of acid-base balance; I12.9 Hypertensive chronic kidney disease with stage 1 through stage 4 chronic kidney disease, or unspecified chronic kidney disease; E11.22 Type 2 diabetes mellitus with diabetic chronic kidney disease; K21.9 Gastro-esophageal reflux disease without esophagitis; E03.9 Hypothyroidism, unspecified; M19.90 Unspecified osteoarthritis, unspecified site; F32.9 Major depressive disorder, single episode, unspecified; N18.3 Chronic kidney disease, stage 3 (moderate); E66.01 Morbid (severe) obesity due to excess calories; E78.5 Hyperlipidemia, unspecified; Z88.6 Allergy status to analgesic agent; E11.649 Type 2 diabetes mellitus with hypoglycemia without coma; Z79.4 Long term (current) use of insulin; Z79.899 Other long term (current) drug therapy; Z79.51 Long term (current) use of inhaled steroids; Z72.3 Lack of physical exercise; Z90.710 Acquired absence of both cervix and uterus; Z90.49 Acquired absence of other specified parts of digestive tract
CPT/HCPCS: 36415; 36600; 71045; 71250; 80048; 80053; 80061; 80076; 80307; 81001; 82140; 82150; 82550; 82553; 82570; 82803; 82962; 83036; 83690; 83735; 83880; 84100; 84156; 84439; 84443; 84484; 85025; 85610; 85730; 87040; 87086; 93005; 93010; 94640; 96374; 96376; 99291; G8978-GP; G8979-GP; J1644; J1815; J1956; J3475; J3490; J7620

== ENCOUNTER 2018-03-15 13:44 | Observation (INO) | payer MEDICARE, MEDICAID ==
--- NOTE | 2018-03-15 14:41 | ER Document Report ---
ED General - General Mode of Arrival: Ambulatory Information source: Patient TRAVEL OUTSIDE OF THE [place] IN LAST 30 DAYS: No <FLIP TINSLEY - Last Filed: 03/15/18 17:14> <ALMA CHINCHILLA - Last Filed: 03/15/18 20:02> - General Chief Complaint: Weakness Stated Complaint: WEAKNESS Time Seen by Provider: 03/15/18 14:27 Notes: Patient is a 72-year-old female who presents to the emergency department today with complaints of not being able to walk. Patient was discharged from this facility after a 7 day stay. Patient states she feels like lying on her back for a week and not using her legs caused them to become weak. Patient states that she feels like if she had some physical therapy she would be able to gain strength back and walk again. (FLIP TINSLEY) - Related Data Allergies/Adverse Reactions: aspirin [Aspirin] Allergy (Verified 09/08/17 13:51) Edema, GI UPSET morphine [Morphine] Allergy (Verified 09/08/17 13:51) ANAPHYLAXSIS, Facial swelling Past Medical History - General Information source: Patient - Social History Smoking Status: Unknown if Ever Smoked Cigarette use (# per day): No Frequency of alcohol use: None Drug Abuse: None Lives with: Family Family History: Reviewed & Not Pertinent Patient has suicidal ideation: No Patient has homicidal ideation: No - Past Medical History Cardiac Medical History: Reports: Hx Hypercholesterolemia, Hx Hypertension Pulmonary Medical History: Reports: Hx Asthma Neurological Medical History: Denies: Hx Cerebrovascular Accident Endocrine Medical History: Reports: Hx Diabetes Mellitus Type 2, Hx Hypothyroidism Renal/ Medical History: Denies: Hx Peritoneal Dialysis GI Medical History: Reports: Hx Gastroesophageal Reflux Disease, Hx Ulcer Musculoskeletal Medical History: Reports Hx Arthritis Psychiatric Medical History: Reports: Hx Depression Past Surgical History: Reports: Hx Cholecystectomy, Hx Hysterectomy, Hx Orthopedic Surgery - bilateral knee replacement - Immunizations Immunizations up to date: Yes Hx Diphtheria, Pertussis, Tetanus Vaccination: No Hx Pneumococcal Vaccination: 03/11/12 <FLIP TINSLEY - Last Filed: 03/15/18 17:14> Review of Systems - Review of Systems Constitutional: See HPI, Weakness, Other - inability to ambulate EENT: No symptoms reported Cardiovascular: No symptoms reported Respiratory: No symptoms reported Gastrointestinal: No symptoms reported Genitourinary: No symptoms reported Female Genitourinary: No symptoms reported Musculoskeletal: No symptoms reported Skin: No symptoms reported Hematologic/Lymphatic: No symptoms reported Neurological/Psychological: No symptoms reported -: Yes All other systems reviewed and negative <LAUREANOFLIP - Last Filed: 03/15/18 17:14> Physical Exam <LAUREANOFLIP - Last Filed: 03/15/18 17:14> <ALMA CHINCHILLA - Last Filed: 03/15/18 20:02> - Vital signs Vitals: Pulse Resp BP Pulse Ox 90 18 132/74 H 100 03/15/18 14:29 03/15/18 14:29 03/15/18 14:29 03/15/18 14:29 - Notes Notes: Physical Exam: General: Alert. HEENT: Normocephalic. Atraumatic. PERRL. Extraocular movements intact. Oropharynx clear. Neck: Supple. Non-tender. Respiratory: No respiratory distress. Slightly tachypneic, Clear and equal breath sounds bilaterally. Cardiovascular: Regular rate and rhythm, 2-3/6 systolic murmur which patient states has "been there forever". Abdominal: Morbidly obese. Non-tender. No distension. Normal Bowel Sounds. Back: Non-tender. No deformity or step off. Extremities: Moves all four extremities. Upper extremities: Normal inspection. Normal ROM. Lower extremities: see skin exam. 2+ pitting edema bilaterally. Neurological: Normal cognition. AAOx4. Normal speech. Psychological: Normal affect. Normal Mood. Skin: Chronic thickening of the skin and lower extremities. (FLIP TINSLEY) Course - Laboratory Result Diagrams: 03/15/18 15:05 03/15/18 15:05 <LAUREANOFLIP - Last Filed: 03/15/18 17:14> - Laboratory Result Diagrams: 03/15/18 15:05 03/15/18 15:05 - EKG Interpretation by Ms EKG shows normal: Sinus rhythm, [place], Intervals, QRS Complexes. abnormal: ST-T Waves - Borderline T abnormalities Rate: Normal - 85 Rhythm: NSR When compared to previous EKG there are: No significant change - Consults Dr. Interiano Time consulted: 17:00 Consulted provider: will see as inpatient <ALMA CHINCHILLA - Last Filed: 03/15/18 20:02> - Re-evaluation Re-evalutation: 03/15/18 20:01 The nurse does advise me that the patient is starting to wheeze some, and that her admitting doctor has not been in any orders yet. I did order a DuoNeb treatment and suggested the nurse try calling the admitting physician to get orders. (ALMA CHINCHILLA) - Vital Signs Vital signs: Temp Pulse Resp BP Pulse Ox 98.1 F 90 10 L 153/139 H 92 03/15/18 16:08 03/15/18 14:29 03/15/18 19:01 03/15/18 19:00 03/15/18 19:01 - Laboratory Laboratory results interpreted by me: 03/15/18 03/15/18 03/15/18 15:05 15:05 15:05 WBC 13.4 H RBC 3.35 L Hgb 9.9 L Hct 30.4 L RDW 15.5 H Seg Neutrophils % 80.2 H Lymphocytes % 6.8 L Absolute Neutrophils 10.8 H Absolute Monocytes 1.5 H BUN 52 H Creatinine 2.56 H Est GFR ( Amer) 22 L Est GFR (Non-Af Amer) 18 L Glucose 118 H Calcium 8.2 L Creatine Kinase 237 H Total Protein 6.1 L Albumin 3.0 L Urine Protein 100 H Urine Ascorbic Acid 20 H Discharge <FLIP TINSLEY - Last Filed: 03/15/18 17:14> - Discharge Admitting Provider: [facility] Unit Admitted: Medical Floor <ALMA CHINCHILLA - Last Filed: 03/15/18 20:02> - Discharge Clinical Impression: Weakness acquired in ICU, Physical deconditioning, Dehydration, Chronic kidney disease, stage 4 (severe), Unable to walk Condition: Stable Disposition: ADMITTED INPATIENT Scribe Attestation: 03/15/18 15:17 I personally performed the services described in the documentation, reviewed and edited the documentation which was dictated to the scribe in my presence, and it accurately records my words and actions. (ALMA CHINCHILLA) Scribe Documentation - Scribe Written by Didieribe:: Nyla Ruano, 03/15/2018 [id number] acting as scribe for :: Natalia <FLIP TINSLEY - Last Filed: 03/15/18 17:14>
[2018-03-15 15:42] LABS: ABSOLUTE EOSINOPHILS # (AUTO) 0.2 10^3/uL (0.0-0.6); ABSOLUTE LYMPHOCYTES (AUTO) 0.9 10^3/uL (0.5-4.7); ABSOLUTE MONOCYTES (AUTO) 1.5 10^3/uL (0.1-1.4); ABSOLUTE NEUT (AUTO) 10.8 10^3/uL (1.7-8.2); BASOPHILS % (AUTO) 0.3 % (0-2); EOSINOPHILS % (AUTO) 1.5 % (0-6); HEMATOCRIT 30.4 % (36.0-47.0); HEMOGLOBIN 9.9 g/dL (12.0-15.5); LYMPHOCYTES % (AUTO) 6.8 % (13-45); MEAN CORPUSCULAR HEMOGLOBIN 29.5 pg (27.0-33.4); MEAN CORPUSCULAR HGB CONC 32.5 g/dL (32.0-36.0); MEAN CORPUSCULAR VOLUME 91 fl (80-97); MONOCYTES % (AUTO) 11.2 % (3-13); PLATELET COUNT 211 10^3/uL (150-450); RED BLOOD COUNT 3.35 10^6/uL (3.72-5.28); RED CELL DISTRIBUTION WIDTH 15.5 % (11.5-14.0); SEGMENTED NEUTROPHILS % (AUTO) 80.2 % (42-78); TOTAL CELLS COUNTED % (AUTO) 100 %; WHITE BLOOD COUNT 13.4 10^3/uL (4.0-10.5)
[2018-03-15 16:09] LABS: ALANINE AMINOTRANSFERASE 29 U/L (9-52); ALKALINE PHOSPHATASE 117 U/L (38-126); ANION GAP 10 (5-19); ASPARTATE AMINO TRANSFERASE 33 U/L (14-36); BILIRUBIN,DIRECT 0.3 mg/dL (0.0-0.4); BILIRUBIN,TOTAL 0.5 mg/dL (0.2-1.3); BLOOD UREA NITROGEN 52 mg/dL (7-20); CALCIUM 8.2 mg/dL (8.4-10.2); CARBON DIOXIDE 29 mmol/L (22-30); CHLORIDE 105 mmol/L (98-107); CREATINE KINASE 237 U/L (30-135); GLUCOSE 118 mg/dL (75-110); POTASSIUM 4.4 mmol/L (3.6-5.0); TOTAL PROTEIN 6.1 g/dL (6.3-8.2)
[2018-03-15 16:12] LABS: APPEARANCE,URINE SLIGHTLY-CLOUDY; BILIRUBIN,URINE NEGATIVE (NEGATIVE); COLOR,URINE YELLOW; GLUCOSE, URINE NEGATIVE (NEGATIVE); KETONES,URINE NEGATIVE (NEGATIVE); LEUKOCYTE ESTERASE,URINE NEGATIVE (NEGATIVE); NITRITE,URINE NEGATIVE (NEGATIVE); PROTEIN,URINE 100 mg/dL (NEGATIVE); URINE SPECIFIC GRAVITY 1.013; UROBILINOGEN,URINE NEGATIVE mg/dL (<2.0)
[2018-03-15] MEDS ORDERED: IPRATROPIUM/ALBUTEROL 0.5-2.5 MG/3 ML AMPUL NEB ONE (20:00)
[2018-03-15] MEDS ORDERED: (PENDING PHARMACY ID) (Mirabegron [Myrbetriq] 50 MG) PO SCH (20:30)
[2018-03-15] MEDS ORDERED: (PENDING PHARMACY ID) (Linagliptin [Tradjenta] 5 MG) PO SCH (20:30)
[2018-03-15] MEDS ORDERED: (PENDING PHARMACY ID) (Metoprolol Succinate [Toprol Xl 200 Mg Tablet] 200 MG) PO SCH (20:30)
[2018-03-15] MEDS ORDERED: (PENDING PHARMACY ID) (Insulin Aspart [Novolog Flexpen] 5 UNIT) SUBCUT SCH (20:30)
[2018-03-15] MEDS ORDERED: INSULIN GLARGINE,HUM.REC.ANLOG 300 UNIT/3 ML INSULN.PEN SUBCUT SCH (20:30)
[2018-03-15] MEDS ORDERED: (PENDING PHARMACY ID) (Doxepin Hcl [Doxepin Hcl] 75 MG) PO SCH (22:00)
--- NOTE | 2018-03-15 22:24 | EKG REPORT ---
SEVERITY:- ABNORMAL ECG - SINUS RHYTHM CONSIDER ANTEROSEPTAL INFARCT BORDERLINE T WAVE ABNORMALITIES : Confirmed by: Melony Clancy MD 15-Mar-2018 22:24:18
[2018-03-15 23:00] LABS: ABSOLUTE EOSINOPHILS # (AUTO) 0.3 10^3/uL (0.0-0.6); ABSOLUTE LYMPHOCYTES (AUTO) 1.2 10^3/uL (0.5-4.7); ABSOLUTE MONOCYTES (AUTO) 1.6 10^3/uL (0.1-1.4); ABSOLUTE NEUT (AUTO) 9.9 10^3/uL (1.7-8.2); BASOPHILS % (AUTO) 0.3 % (0-2); HEMATOCRIT 28.8 % (36.0-47.0); HEMOGLOBIN 9.5 g/dL (12.0-15.5); LYMPHOCYTES % (AUTO) 9.4 % (13-45); MEAN CORPUSCULAR HEMOGLOBIN 29.9 pg (27.0-33.4); MEAN CORPUSCULAR VOLUME 91 fl (80-97); MONOCYTES % (AUTO) 12.4 % (3-13); PLATELET COUNT 206 10^3/uL (150-450); RED BLOOD COUNT 3.17 10^6/uL (3.72-5.28); RED CELL DISTRIBUTION WIDTH 15.5 % (11.5-14.0); SEGMENTED NEUTROPHILS % (AUTO) 75.9 % (42-78); TOTAL CELLS COUNTED % (AUTO) 100 %; WHITE BLOOD COUNT 13.1 10^3/uL (4.0-10.5)
[2018-03-15 23:18] LABS: ANION GAP 13 (5-19); BLOOD UREA NITROGEN 50 mg/dL (7-20); CARBON DIOXIDE 27 mmol/L (22-30); CHLORIDE 104 mmol/L (98-107); GLUCOSE 122 mg/dL (75-110); POTASSIUM 4.2 mmol/L (3.6-5.0); SODIUM 143.5 mmol/L (137-145)
[2018-03-15] MEDS: DULOXETINE HCL 30 MG CAPSULE.DR PO SCH (23:51)
[2018-03-15] MEDS: PREGABALIN 75 MG CAPSULE PO SCH (23:52)
[2018-03-15] MEDS: ATORVASTATIN CALCIUM 20 MG TABLET PO SCH (23:52)
[2018-03-15] MEDS: DOXEPIN HCL 25 MG CAPSULE PO SCH (23:52)
[2018-03-15] MEDS: ACETAMINOPHEN 325 MG TABLET PO PRN (23:57)
[2018-03-16] MEDS: NORMAL SALINE 1000 ML 1,000 ML IV PRN ×2 (03:35→20:26)
[2018-03-16] MEDS: LEVOTHYROXINE SODIUM 0.15 MG TABLET PO SCH (06:46)
[2018-03-16] MEDS: LANSOPRAZOLE 30 MG TAB.RAP.DR PO SCH ×2 (06:47→08:15)
[2018-03-16] MEDS: ACETAMINOPHEN 325 MG TABLET PO PRN ×3 (06:47→20:26)
[2018-03-16] MEDS: SITAGLIPTIN PHOSPHATE 25 MG TABLET PO SCH ×2 (08:14→10:21)
[2018-03-16] MEDS: INSULIN LISPRO 100 UNIT/ML 3 ML VIAL SUBCUT SCH ×4 (08:14→17:45)
[2018-03-16] MEDS: MONTELUKAST SODIUM 10 MG TABLET PO SCH ×2 (08:15→17:45)
[2018-03-16] MEDS: INSULIN GLARGINE,HUM.REC.ANLOG 1,000 UNIT/10 ML UNIT SUBCUT SCH ×2 (08:15→10:19)
[2018-03-16] MEDS: BUDESONIDE/FORMOTEROL 160-4.5 MCG 60 PUFF/6 GM MDI IH SCH ×3 (08:15→22:34)
[2018-03-16] MEDS: AMLODIPINE BESYLATE 5 MG TABLET PO SCH ×2 (08:15→10:20)
[2018-03-16] MEDS: METOPROLOL SUCCINATE 50 MG TAB.SR.24H PO SCH ×2 (08:16→10:20)
--- NOTE | 2018-03-16 08:18 | RADIOLOGY REPORT (SQ) ---
EXAM DESCRIPTION: CHEST SINGLE VIEW COMPLETED DATE/TIME: 03/16/2018 7:47 am REASON FOR STUDY: non productive cough COMPARISON: CT chest 03/04/2018 EXAM PARAMETERS: NUMBER OF VIEWS: One view. TECHNIQUE: Single frontal radiographic view of the chest acquired. RADIATION DOSE: NA LIMITATIONS: None. FINDINGS: LUNGS AND PLEURA: Minimal linear confluent density lateral aspect the left base. Differen tial includes minimal atelectasis or infiltrate versus superimposition of normal shadows. Lungs othe rwise clear. MEDIASTINUM AND HILAR STRUCTURES: No masses. Contour normal. HEART AND VASCULAR STRUCTURES: Heart normal in size. Normal vasculature. BONES: No acute findings. HARDWARE: None in the chest. OTHER: No other significant finding. IMPRESSION: Minimal opacity left base. See above discussion. Bibasilar atelectasis noted on recent CT has essentially cleared. TECHNICAL DOCUMENTATION: JOB ID: [id number] [employer]- All Rights Reserved Reading location - IP/workstation name: [email or web address]
--- NOTE | 2018-03-16 09:27 | Physician Advisory Note ---
Physician Advisor ProgressNote .: Pursuant to the plan for [facility], I have reviewed the medical record for this patient. Physician Advisor Statement: Please consider documenting, if you agree: 1. "Acute Kidney Injury, baseline Cr 1.8, likely due to " 2. "Chronic Kidney Disease stage ____" (3? 3-4?) 3. "morbid obesity w/BMI 54" 4. Reason for very careful IVF rate in this case - last ECHO here Sep 2016 showing normal syst/diast fn, exam w/2+ pitting edema BLEs. 5. Reason(s) patient continues to need to stay in hospital for tx/close monitoring tonight after 1MN of tx/monitoring already. - see below 6. Do her O2 sats as low as 89% on 03/15 afternoon concern attending? Do they indicate an underlying acute or chronic co-morbidity? 7. "Anemia, suspect chronic due to " [Fe defic from chronic bld loss ? nutritional ___ defic?] Status: appropriately brought in as Obs to start. - If she needs a 2nd MN in hospital, please document the reasons, & she may become appropriate for change to Inpatient status. (However, we need to know she is receiving the most aggressive care that is safe for her, to show her Intensity of Service is compatible with Inpatient status first: if a pt with no apparent contraindications to "usual" IVF resuscitation is not responding quickly to tx because the IVF is just being trickled in, for example, a payer will argue that pt would have been improved enough for d/c within 24 hrs if tx'd with IVF at 100-150+ml/hr, & therefore, 2nd MN in hospital is not enough to justify Inpatient status.) Thanks! CK
[2018-03-16] MEDS: DULOXETINE HCL 30 MG CAPSULE.DR PO SCH ×2 (10:21→22:35)
[2018-03-16] MEDS: PREGABALIN 75 MG CAPSULE PO SCH ×2 (10:21→22:36)
[2018-03-16] MEDS: ENOXAPARIN SODIUM INJ 30 MG/0.3 ML DISP.SYRIN SUBCUT SCH (11:44)
--- NOTE | 2018-03-16 21:13 | PDOC H&P ---
History of Present Illness Admission Date/PCP: 03/15/18 17:35 BRAD GIVENS MD History of Present Illness: ONDINA ENRIQUEZ is a 72 year old female, She has history of morbid obesity, body mass index 54, she was just recently discharged from this hospital about 7 days ago the last time she was admitted she was offered skilled nursing physical therapy and rehabilitation but she declined the recommendation. She came to the emergency room because of difficulty moving, in the ER she was evaluated she was found to have acute kidney injury felt to be due to dehydration. Patient is morbidly obese she has type 2 diabetes mellitus complicated with chronic kidney disease with a baseline creatinine of about 1.5. Because of the elevated serum creatinine and the fact that she complained of generalized debility and body weakness the ED physician is recommending inpatient care for this patient Past Medical History Cardiac Medical History: Reports: Hyperlipidema, Hypertension Pulmonary Medical History: Reports: Asthma, Chronic Obstructive Pulmonary Disease (COPD), Pneumonia Endocrine Medical History: Reports: Diabetes Mellitus Type 2, Hypothyroidism Renal/ Medical History: Reports: Chronic Kidney Disease, Other - Chronic kidney disease stage III GI Medical History: Reports: Gastroesophageal Reflux Disease Musculoskeltal Medical History: Reports: Arthritis Psychiatric Medical History: Reports: Depression Hematology: Reports: Anemia Past Surgical History Past Surgical History: Reports: Cholecystectomy, Hysterectomy, Orthopedic Surgery - bilateral knee replacement Social History Lives with: Family Smoking Status: Unknown if Ever Smoked Frequency of Alcohol Use: None Hx Recreational Drug Use: No Drugs: None Hx Prescription Drug Abuse: No - Advance Directive Resuscitation Status: Full Code Family History Family History: Reviewed & Not Pertinent Parental Family History Reviewed: Yes Children Family History Reviewed: Yes Sibling(s) Family History Reviewed.: Yes Medication/Allergy Home Medications: Amlodipine Besylate [Norvasc 5 mg Tablet] 5 mg PO DAILY 03/04/18 Atorvastatin Calcium [Lipitor 20 mg Tablet] 20 mg PO QHS 03/04/18 Dexlansoprazole [Dexilant 60 mg Capsule] 60 mg PO DAILY 03/04/18 Doxepin HCl 75 mg PO QHS 03/04/18 Duloxetine HCl [Cymbalta] 60 mg PO Q12 03/04/18 Insulin Aspart [Novolog Flexpen] 5 unit SUBCUT AC 03/04/18 Insulin Glargine,Hum.rec.anlog [Lantus Solostar] 52 unit SQ DAILY 03/04/18 Levothyroxine Sodium [Synthroid 0.15 mg Tablet] 0.15 mg PO Q6AM 03/04/18 Linagliptin [Tradjenta] 5 mg PO DAILY 03/04/18 Metoprolol Succinate [Toprol XL 200 mg Tablet] 200 mg PO DAILY 03/04/18 Mirabegron [Myrbetriq] 50 mg PO DAILY 03/04/18 Montelukast Sodium [Singulair 10 mg Tablet] 10 mg PO QPM 03/04/18 Pregabalin [Lyrica] 150 mg PO Q12 03/04/18 Budesonide/Formoterol Fumarate [Symbicort HFA 160-4.5 mcg Inhaler 6 gm] 2 puff IH Q12 #2 inhaler 03/09/18 Allergies/Adverse Reactions: aspirin [Aspirin] Allergy (Verified 09/08/17 13:51) Edema, GI UPSET morphine [Morphine] Allergy (Verified 09/08/17 13:51) ANAPHYLAXSIS, Facial swelling Review of Systems Constitutional: PRESENT: weakness Cardiovascular: ABSENT: as per HPI, chest pain, dyspnea on exertion, edema, orthropnea, palpitations, other Respiratory: PRESENT: cough Gastrointestinal: PRESENT: nausea Genitourinary: ABSENT: dysuria, hematuria Musculoskeletal: ABSENT: joint swelling Integumentary: ABSENT: rash, wounds Neurological: PRESENT: abnormal gait Psychiatric: ABSENT: anxiety, depression, homidical ideation, suicidal ideation Endocrine: ABSENT: cold intolerance, heat intolerance, menstrual abnormalities, polydipsia, polyuria Hematologic/Lymphatic: ABSENT: easy bleeding, easy bruising, lymphadenopathy Physical Exam Vital Signs: Temp Pulse Resp BP Pulse Ox 98.8 F 57 L 20 144/54 H 96 03/16/18 20:11 03/16/18 20:11 03/16/18 20:11 03/16/18 20:11 03/16/18 20:11 Intake & Output 03/15/18 03/16/18 03/17/18 06:59 06:59 06:59 Intake Total 1000 Balance 1000 Weight 152.2 kg General appearance: PRESENT: mild distress Head exam: PRESENT: atraumatic, normocephalic Eye exam: PRESENT: PERRLA Ear exam: PRESENT: normal external ear exam Mouth exam: PRESENT: moist, tongue midline Neck exam: PRESENT: full ROM Respiratory exam: PRESENT: rhonchi Cardiovascular exam: PRESENT: RRR, +S1, +S2 Pulses: PRESENT: normal dorsalis pedis pul, +2 pedal pulses bilateral Vascular exam: PRESENT: normal capillary refill GI/Abdominal exam: PRESENT: normal bowel sounds, soft Rectal exam: PRESENT: deferred Neurological exam: PRESENT: alert, CN II-XII grossly intact Psychiatric exam: PRESENT: appropriate affect, normal mood Skin exam: PRESENT: dry, intact, warm Results Laboratory Results: 03/15/18 22:41 03/15/18 22:41 03/15/18 03/15/18 22:41 22:41 WBC 13.1 H RBC 3.17 L Hgb 9.5 L Hct 28.8 L MCV 91 MCH 29.9 MCHC 33.0 RDW 15.5 H Plt Count 206 Seg Neutrophils % 75.9 Lymphocytes % 9.4 L Monocytes % 12.4 Eosinophils % 2.0 Basophils % 0.3 Absolute Neutrophils 9.9 H Absolute Lymphocytes 1.2 Absolute Monocytes 1.6 H Absolute Eosinophils 0.3 Absolute Basophils 0.0 Sodium 143.5 Potassium 4.2 Chloride 104 Carbon Dioxide 27 Anion Gap 13 BUN 50 H Creatinine 2.45 H Est GFR ( Amer) 23 L Est GFR (Non-Af Amer) 19 L Glucose 122 H Calcium 8.0 L Impressions: Chest X-Ray 03/16/18 00:00 IMPRESSION: Minimal opacity left base. See above discussion. Bibasilar atelectasis noted on recent CT has essentially cleared. Assessment & Plan - Diagnosis (1) Acute kidney injury Is this a current diagnosis for this admission?: Yes Plan: She has on the landing chronic kidney disease with a superimposed acute kidney injury most likely from dehydration. She will be slowly hydrated with IV fluid (2) Morbid obesity due to excess calories Is this a current diagnosis for this admission?: Yes (3) Generalized muscle weakness Is this a current diagnosis for this admission?: Yes (4) Type 2 diabetes mellitus with diabetic polyneuropathy Qualifiers: Diabetes mellitus penitentiary insulin use: with penitentiary use Is this a current diagnosis for this admission?: Yes
--- NOTE | 2018-03-16 21:13 | PDOC PROGRESS REPORT ---
Subjective Progress Note for:: 03/16/18 Subjective:: She was admitted yesterday she is morbidly obese and extremely deconditioned Reason For Visit: DEHYDRATION,GENERAL BODY WEAKNESS Physical Exam Vital Signs: Temp Pulse Resp BP Pulse Ox 98.8 F 57 L 20 144/54 H 96 03/16/18 20:11 03/16/18 20:11 03/16/18 20:11 03/16/18 20:11 03/16/18 20:11 Intake & Output 03/15/18 03/16/18 03/17/18 06:59 06:59 06:59 Intake Total 1000 Balance 1000 Weight 152.2 kg General appearance: PRESENT: no acute distress Respiratory exam: PRESENT: wheezes Cardiovascular exam: PRESENT: +S1, +S2 GI/Abdominal exam: PRESENT: soft Neurological exam: PRESENT: alert Results Laboratory Results: 03/15/18 22:41 03/15/18 22:41 03/15/18 03/15/18 22:41 22:41 WBC 13.1 H RBC 3.17 L Hgb 9.5 L Hct 28.8 L MCV 91 MCH 29.9 MCHC 33.0 RDW 15.5 H Plt Count 206 Seg Neutrophils % 75.9 Lymphocytes % 9.4 L Monocytes % 12.4 Eosinophils % 2.0 Basophils % 0.3 Absolute Neutrophils 9.9 H Absolute Lymphocytes 1.2 Absolute Monocytes 1.6 H Absolute Eosinophils 0.3 Absolute Basophils 0.0 Sodium 143.5 Potassium 4.2 Chloride 104 Carbon Dioxide 27 Anion Gap 13 BUN 50 H Creatinine 2.45 H Est GFR ( Amer) 23 L Est GFR (Non-Af Amer) 19 L Glucose 122 H Calcium 8.0 L Impressions: Chest X-Ray 03/16/18 00:00 IMPRESSION: Minimal opacity left base. See above discussion. Bibasilar atelectasis noted on recent CT has essentially cleared. Assessment & Plan - Diagnosis (1) Acute kidney injury Is this a current diagnosis for this admission?: Yes
[2018-03-16 22:02] LABS: ALANINE AMINOTRANSFERASE 28 U/L (9-52); ALBUMIN 2.6 g/dL (3.5-5.0); ALKALINE PHOSPHATASE 120 U/L (38-126); ANION GAP 8 (5-19); ASPARTATE AMINO TRANSFERASE 38 U/L (14-36); BILIRUBIN,DIRECT 0.3 mg/dL (0.0-0.4); BILIRUBIN,TOTAL 0.4 mg/dL (0.2-1.3); BLOOD UREA NITROGEN 52 mg/dL (7-20); CALCIUM 8.1 mg/dL (8.4-10.2); CARBON DIOXIDE 28 mmol/L (22-30); CHLORIDE 106 mmol/L (98-107); GLUCOSE 157 mg/dL (75-110); POTASSIUM 4.9 mmol/L (3.6-5.0); SODIUM 142.4 mmol/L (137-145); TOTAL PROTEIN 5.8 g/dL (6.3-8.2)
[2018-03-16] MEDS ORDERED: INSULIN LISPRO 100 UNIT/ML 3 ML VIAL ONE (22:11)
[2018-03-16] MEDS ORDERED: DEXTROSE 50%-WATER SYRINGE 12.5 GM/25 ML DOSE IV PRN (22:31)
[2018-03-16] MEDS ORDERED: DEXTROSE 40% GEL 15 GM TUBE X 2 PO PRN (22:31)
[2018-03-16] MEDS ORDERED: DEXTROSE 40% GEL 15 GM TUBE PO PRN (22:31)
[2018-03-16] MEDS ORDERED: DEXTROSE 50%-WATER SYRINGE 25 GM/50 ML DOSE IV PRN (22:31)
[2018-03-16] MEDS ORDERED: GLUCAGON,HUMAN RECOMB 1 MG INJ IM PRN (22:31)
[2018-03-16] MEDS: DOXEPIN HCL 25 MG CAPSULE PO SCH (22:37)
[2018-03-16] MEDS: ATORVASTATIN CALCIUM 20 MG TABLET PO SCH (22:37)
[2018-03-17] MEDS: LANSOPRAZOLE 30 MG TAB.RAP.DR PO SCH (05:19)
[2018-03-17] MEDS: LEVOTHYROXINE SODIUM 0.15 MG TABLET PO SCH (05:20)
[2018-03-17 07:01] LABS: ALANINE AMINOTRANSFERASE 41 U/L (9-52); ALBUMIN 2.7 g/dL (3.5-5.0); ALKALINE PHOSPHATASE 150 U/L (38-126); ANION GAP 11 (5-19); ASPARTATE AMINO TRANSFERASE 71 U/L (14-36); BILIRUBIN,DIRECT 0.3 mg/dL (0.0-0.4); BILIRUBIN,TOTAL 0.4 mg/dL (0.2-1.3); BLOOD UREA NITROGEN 49 mg/dL (7-20); CALCIUM 8.3 mg/dL (8.4-10.2); CARBON DIOXIDE 25 mmol/L (22-30); CHLORIDE 106 mmol/L (98-107); GLUCOSE 126 mg/dL (75-110); POTASSIUM 4.8 mmol/L (3.6-5.0)
[2018-03-17] MEDS: INSULIN LISPRO 100 UNIT/ML 3 ML VIAL SUBCUT SCH ×3 (08:44→18:08)
[2018-03-17] MEDS: INSULIN GLARGINE,HUM.REC.ANLOG 1,000 UNIT/10 ML UNIT SUBCUT SCH (09:39)
[2018-03-17] MEDS: SITAGLIPTIN PHOSPHATE 25 MG TABLET PO SCH (09:40)
[2018-03-17] MEDS: METOPROLOL SUCCINATE 50 MG TAB.SR.24H PO SCH (09:40)
[2018-03-17] MEDS: DULOXETINE HCL 30 MG CAPSULE.DR PO SCH ×2 (09:40→21:34)
[2018-03-17] MEDS: AMLODIPINE BESYLATE 5 MG TABLET PO SCH (09:40)
[2018-03-17] MEDS: PREGABALIN 75 MG CAPSULE PO SCH ×2 (09:40→21:33)
[2018-03-17] MEDS: ENOXAPARIN SODIUM INJ 30 MG/0.3 ML DISP.SYRIN SUBCUT SCH (09:40)
[2018-03-17] MEDS: BUDESONIDE/FORMOTEROL 160-4.5 MCG 60 PUFF/6 GM MDI IH SCH ×2 (09:41→21:35)
[2018-03-17 12:57] LABS: ARTERIAL BLOOD BASE EXCESS 1.5 mmol/L; ARTERIAL BLOOD O2 SATURATION 72.7 % (94-98); ARTERIAL BLOOD PCO2 46.4 mmHg (35-45); ARTERIAL BLOOD PH 7.38 (7.35-7.45); ARTERIAL BLOOD TOTAL CO2 28.4 mmol/L (21-25)
[2018-03-17 12:58] LABS: ARTERIAL BLOOD FIO2 21%
[2018-03-17 13:00] LABS: ARTERIAL BLOOD PO2 39.3 mmHg (80-100)
[2018-03-17] MEDS: INSULIN LISPRO 100 UNIT/ML 3 ML VIAL SUBCUT PRN (13:14)
[2018-03-17 15:14] LABS: ARTERIAL BLOOD BASE EXCESS 1.5 mmol/L; ARTERIAL BLOOD H2CO3 1.44 mmol/L (1.05-1.35); ARTERIAL BLOOD HCO3 27.3 mmol/L (20-26); ARTERIAL BLOOD PCO2 47.8 mmHg (35-45); ARTERIAL BLOOD PH 7.37 (7.35-7.45); ARTERIAL BLOOD PO2 68.1 mmHg (80-100); ARTERIAL BLOOD TOTAL CO2 28.7 mmol/L (21-25)
[2018-03-17 15:16] LABS: ARTERIAL BLOOD FIO2 ROOM AIR
[2018-03-17 16:33] LABS: HEMATOCRIT 30.6 % (36.0-47.0); HEMOGLOBIN 9.7 g/dL (12.0-15.5); MEAN CORPUSCULAR HEMOGLOBIN 29.2 pg (27.0-33.4); MEAN CORPUSCULAR HGB CONC 31.8 g/dL (32.0-36.0); MEAN CORPUSCULAR VOLUME 92 fl (80-97); PLATELET COUNT 207 10^3/uL (150-450); RED BLOOD COUNT 3.34 10^6/uL (3.72-5.28); RED CELL DISTRIBUTION WIDTH 15.4 % (11.5-14.0); WHITE BLOOD COUNT 11.6 10^3/uL (4.0-10.5)
[2018-03-17 16:57] LABS: ABSOLUTE LYMPHOCYTES# (MANUAL) 1.5 10^3/uL (0.5-4.7); ABSOLUTE NEUTROPHILS# (MANUAL) 8.6 10^3/uL (1.7-8.2); BAND NEUTROPHILS % (MANUAL) 1 % (3-5); BASOPHILS % (MANUAL) 0 % (0-2); EOSINOPHILS % (MANUAL) 4 % (0-6); LYMPHOCYTES % (MANUAL) 11 % (13-45); MONOCYTES % (MANUAL) 9 % (3-13); SEGMENTED NEUTROPHILS % (MAN) 73 % (42-78); TOTAL CELLS COUNTED 100
[2018-03-17 16:59] LABS: ANISOCYTOSIS SLIGHT
[2018-03-17 17:00] LABS: PLATELET COMMENT ADEQUATE; TOXIC VACUOLATION PRESENT
[2018-03-17] MEDS: MONTELUKAST SODIUM 10 MG TABLET PO SCH (18:08)
--- NOTE | 2018-03-17 19:07 | PDOC PROGRESS REPORT ---
Subjective Progress Note for:: 03/17/18 Subjective:: Patient was seen by the bedside, the plan is to transfer patient to half-way for rehabilitation but the nurses said she was confused, a stat arterial blood gas was done, it demonstrated mixed acid-base disorder Reason For Visit: DEHYDRATION,GENERAL BODY WEAKNESS Physical Exam Vital Signs: Temp Pulse Resp BP Pulse Ox 98.3 F 57 L 18 155/81 H 97 03/17/18 15:58 03/17/18 15:58 03/17/18 15:58 03/17/18 15:58 03/17/18 15:58 Intake & Output 03/16/18 03/17/18 03/18/18 06:59 06:59 06:59 Intake Total 1860 1760 Balance 1860 1760 Weight 152.2 kg 153.4 kg General appearance: PRESENT: morbidly obese Eye exam: PRESENT: PERRLA Respiratory exam: PRESENT: wheezes Cardiovascular exam: PRESENT: +S1, +S2 GI/Abdominal exam: PRESENT: soft Neurological exam: PRESENT: alert Results Laboratory Results: 03/17/18 06:13 03/17/18 06:13 03/16/18 03/17/18 03/17/18 21:22 06:13 06:13 WBC 11.6 H RBC 3.34 L Hgb 9.7 L Hct 30.6 L MCV 92 MCH 29.2 MCHC 31.8 L RDW 15.4 H Plt Count 207 Seg Neutrophils % Not Reportable Lymphocytes % Not Reportable Monocytes % Not Reportable Eosinophils % Not Reportable Basophils % Not Reportable Absolute Neutrophils Not Reportable Absolute Lymphocytes Not Reportable Absolute Monocytes Not Reportable Absolute Eosinophils Not Reportable Absolute Basophils Not Reportable Carbonic Acid HCO3/H2CO3 Ratio ABG pH ABG pCO2 ABG pO2 ABG HCO3 ABG O2 Saturation ABG Base Excess FiO2 Sodium 142.4 142.0 Potassium 4.9 4.8 Chloride 106 106 Carbon Dioxide 28 25 Anion Gap 8 11 BUN 52 H 49 H Creatinine 2.22 H 2.08 H Est GFR ( Amer) 26 L 28 L Est GFR (Non-Af Amer) 22 L 23 L Glucose 157 H 126 H Calcium 8.1 L 8.3 L Total Bilirubin 0.4 0.4 AST 38 H 71 H ALT 28 41 Alkaline Phosphatase 120 150 H Total Protein 5.8 L 6.0 L Albumin 2.6 L 2.7 L 03/17/18 03/17/18 12:25 15:00 WBC RBC Hgb Hct MCV MCH MCHC RDW Plt Count Seg Neutrophils % Lymphocytes % Monocytes % Eosinophils % Basophils % Absolute Neutrophils Absolute Lymphocytes Absolute Monocytes Absolute Eosinophils Absolute Basophils Carbonic Acid 1.40 H 1.44 H HCO3/H2CO3 Ratio 19:1 18:1 ABG pH 7.38 7.37 ABG pCO2 46.4 H 47.8 H ABG pO2 39.3 L* 68.1 L ABG HCO3 27.0 H 27.3 H ABG O2 Saturation 72.7 L 93.0 L ABG Base Excess 1.5 1.5 FiO2 21% ROOM AIR Sodium Potassium Chloride Carbon Dioxide Anion Gap BUN Creatinine Est GFR ( Amer) Est GFR (Non-Af Amer) Glucose Calcium Total Bilirubin AST ALT Alkaline Phosphatase Total Protein Albumin Impressions: Chest X-Ray 03/16/18 00:00 IMPRESSION: Minimal opacity left base. See above discussion. Bibasilar atelectasis noted on recent CT has essentially cleared. Assessment & Plan - Diagnosis (1) Acute kidney injury Is this a current diagnosis for this admission?: Yes Plan: The kidney function is improving with hydration, suggesting prerenal acute kidney injury (2) Generalized muscle weakness Is this a current diagnosis for this admission?: Yes (3) Morbid obesity due to excess calories Is this a current diagnosis for this admission?: Yes (4) Chronic kidney disease, stage 3 Is this a current diagnosis for this admission?: Yes (5) Type 2 diabetes mellitus with diabetic polyneuropathy Qualifiers: Diabetes mellitus custodial insulin use: with termite helper use Is this a current diagnosis for this admission?: Yes
[2018-03-17] MEDS: DOXEPIN HCL 25 MG CAPSULE PO SCH (21:31)
[2018-03-17] MEDS: ATORVASTATIN CALCIUM 20 MG TABLET PO SCH (21:34)
[2018-03-18] MEDS: LANSOPRAZOLE 30 MG TAB.RAP.DR PO SCH (06:06)
[2018-03-18] MEDS: LEVOTHYROXINE SODIUM 0.15 MG TABLET PO SCH (06:06)
[2018-03-18] MEDS: INSULIN LISPRO 100 UNIT/ML 3 ML VIAL SUBCUT SCH ×3 (08:05→17:50)
[2018-03-18] MEDS: NORMAL SALINE 1000 ML 1,000 ML IV PRN (10:08)
[2018-03-18] MEDS: PREGABALIN 75 MG CAPSULE PO SCH ×2 (10:09→22:42)
[2018-03-18] MEDS: BUDESONIDE/FORMOTEROL 160-4.5 MCG 60 PUFF/6 GM MDI IH SCH ×2 (10:09→22:43)
[2018-03-18] MEDS: SITAGLIPTIN PHOSPHATE 25 MG TABLET PO SCH (10:09)
[2018-03-18] MEDS: AMLODIPINE BESYLATE 5 MG TABLET PO SCH (10:09)
[2018-03-18] MEDS: METOPROLOL SUCCINATE 50 MG TAB.SR.24H PO SCH (10:09)
[2018-03-18] MEDS: DULOXETINE HCL 30 MG CAPSULE.DR PO SCH ×2 (10:09→22:41)
[2018-03-18] MEDS: ENOXAPARIN SODIUM INJ 30 MG/0.3 ML DISP.SYRIN SUBCUT SCH (10:09)
[2018-03-18] MEDS: INSULIN GLARGINE,HUM.REC.ANLOG 1,000 UNIT/10 ML UNIT SUBCUT SCH (10:09)
[2018-03-18] MEDS: INSULIN LISPRO 100 UNIT/ML 3 ML VIAL SUBCUT PRN ×2 (12:49→17:50)
[2018-03-18] MEDS: MONTELUKAST SODIUM 10 MG TABLET PO SCH (18:12)
[2018-03-18 19:09] LABS: ABSOLUTE BASOPHILS # (AUTO) 0.1 10^3/uL (0.0-0.2); ABSOLUTE EOSINOPHILS # (AUTO) 0.4 10^3/uL (0.0-0.6); ABSOLUTE LYMPHOCYTES (AUTO) 1.1 10^3/uL (0.5-4.7); ABSOLUTE NEUT (AUTO) 7.9 10^3/uL (1.7-8.2); BASOPHILS % (AUTO) 0.7 % (0-2); EOSINOPHILS % (AUTO) 3.4 % (0-6); HEMATOCRIT 33.2 % (36.0-47.0); HEMOGLOBIN 10.8 g/dL (12.0-15.5); LYMPHOCYTES % (AUTO) 10.3 % (13-45); MEAN CORPUSCULAR HEMOGLOBIN 29.4 pg (27.0-33.4); MEAN CORPUSCULAR HGB CONC 32.3 g/dL (32.0-36.0); MEAN CORPUSCULAR VOLUME 91 fl (80-97); MONOCYTES % (AUTO) 9.5 % (3-13); PLATELET COUNT 236 10^3/uL (150-450); RED BLOOD COUNT 3.65 10^6/uL (3.72-5.28); RED CELL DISTRIBUTION WIDTH 15.1 % (11.5-14.0); SEGMENTED NEUTROPHILS % (AUTO) 76.1 % (42-78); TOTAL CELLS COUNTED % (AUTO) 100 %; WHITE BLOOD COUNT 10.4 10^3/uL (4.0-10.5)
[2018-03-18 20:23] LABS: ALANINE AMINOTRANSFERASE 45 U/L (9-52); ALBUMIN 2.7 g/dL (3.5-5.0); ALKALINE PHOSPHATASE 164 U/L (38-126); ANION GAP 10 (5-19); ASPARTATE AMINO TRANSFERASE 70 U/L (14-36); BILIRUBIN,DIRECT 0.4 mg/dL (0.0-0.4); BILIRUBIN,TOTAL 0.4 mg/dL (0.2-1.3); BLOOD UREA NITROGEN 56 mg/dL (7-20); CALCIUM 8.6 mg/dL (8.4-10.2); CARBON DIOXIDE 26 mmol/L (22-30); CHLORIDE 107 mmol/L (98-107); GLUCOSE 117 mg/dL (75-110); POTASSIUM 5.1 mmol/L (3.6-5.0); SODIUM 143.1 mmol/L (137-145)
--- NOTE | 2018-03-18 21:38 | PDOC TRANSFER SUMMARY ---
General - Admit/Disc Date/PCP Admission Date/Primary Care Provider: 03/15/18 17:35 BRAD GIVENS MD Discharge Date: 03/18/18 - Discharge Diagnosis (1) Acute kidney injury Is this a current diagnosis for this admission?: Yes (2) Generalized muscle weakness Is this a current diagnosis for this admission?: Yes (3) Morbid obesity due to excess calories Is this a current diagnosis for this admission?: Yes (4) Chronic kidney disease, stage 3 Is this a current diagnosis for this admission?: Yes (5) Type 2 diabetes mellitus with diabetic polyneuropathy Is this a current diagnosis for this admission?: Yes - Additional Information Resuscitation Status: Full Code Prescriptions: Albuterol Sulfate [Proair HFA] 1 - 2 puff IH Q4 PRN #1 inhaler PRN Reason: Home Medications: Amlodipine Besylate [Norvasc 5 mg Tablet] 5 mg PO DAILY 03/04/18 Atorvastatin Calcium [Lipitor 20 mg Tablet] 20 mg PO QHS 03/04/18 Dexlansoprazole [Dexilant 60 mg Capsule] 60 mg PO DAILY 03/04/18 Doxepin HCl 75 mg PO QHS 03/04/18 Duloxetine HCl [Cymbalta] 60 mg PO Q12 03/04/18 Insulin Aspart [Novolog Flexpen] 5 unit SUBCUT AC 03/04/18 Insulin Glargine,Hum.rec.anlog [Lantus Solostar] 52 unit SQ DAILY 03/04/18 Levothyroxine Sodium [Synthroid 0.15 mg Tablet] 0.15 mg PO Q6AM 03/04/18 Linagliptin [Tradjenta] 5 mg PO DAILY 03/04/18 Metoprolol Succinate [Toprol XL 200 mg Tablet] 200 mg PO DAILY 03/04/18 Mirabegron [Myrbetriq] 50 mg PO DAILY 03/04/18 Montelukast Sodium [Singulair 10 mg Tablet] 10 mg PO QPM 03/04/18 Pregabalin [Lyrica] 150 mg PO Q12 03/04/18 Budesonide/Formoterol Fumarate [Symbicort HFA 160-4.5 mcg Inhaler 6 gm] 2 puff IH Q12 #2 inhaler 03/09/18 Acetaminophen [Tylenol 325 mg Tablet] 650 mg PO Q4HP PRN tablet 03/18/18 Albuterol Sulfate [Proair HFA] 1 - 2 puff IH Q4 PRN #1 inhaler 03/18/18 History of Present Illness Admission Date/PCP: 03/15/18 17:35 BRAD GIVENS MD History of Present Illness: ONDINA ENRIQUEZ is a 72 year old female, She has history of morbid obesity, body mass index 54, she was just recently discharged from this hospital about 7 days ago the last time she was admitted she was offered [facility] physical [facility] and rehabilitation but she declined the recommendation. She came to the emergency room because of difficulty moving, in the ER she was evaluated she was found to have acute kidney injury felt to be due to dehydration. Patient is morbidly obese she has type 2 diabetes mellitus complicated with chronic kidney disease with a baseline creatinine of about 1.5. Because of the elevated serum creatinine and the fact that she complained of generalized debility and body weakness the ED physician is recommending inpatient care for this patient Hospital Course Hospital Course: Patient was admitted for the management of dehydration associated with acute kidney injury, severe deconditioning, she was treated with IV fluid with improvement kidney function, the plan is to transfer the [facility] Physical Exam Vital Signs: Temp Pulse Resp BP Pulse Ox 98.2 F 54 L 18 125/58 L 96 03/18/18 19:58 03/18/18 19:58 03/18/18 19:58 03/18/18 19:58 03/18/18 19:58 Intake & Output 03/17/18 03/18/18 03/19/18 06:59 06:59 06:59 Intake Total 1860 2310 1301 Balance 1860 2310 1301 Weight 153.4 kg 154.6 kg General appearance: PRESENT: no acute distress Eye exam: PRESENT: PERRLA Respiratory exam: PRESENT: clear to auscultation carter Cardiovascular exam: PRESENT: +S1, +S2 GI/Abdominal exam: PRESENT: soft Neurological exam: PRESENT: alert Results Laboratory Results: 03/18/18 18:45 03/18/18 19:47 03/18/18 03/18/18 18:45 19:47 WBC 10.4 RBC 3.65 L Hgb 10.8 L Hct 33.2 L MCV 91 MCH 29.4 MCHC 32.3 RDW 15.1 H Plt Count 236 Seg Neutrophils % 76.1 Lymphocytes % 10.3 L Monocytes % 9.5 Eosinophils % 3.4 Basophils % 0.7 Absolute Neutrophils 7.9 Absolute Lymphocytes 1.1 Absolute Monocytes 1.0 Absolute Eosinophils 0.4 Absolute Basophils 0.1 Sodium 143.1 Potassium 5.1 H Chloride 107 Carbon Dioxide 26 Anion Gap 10 BUN 56 H Creatinine 1.87 H Est GFR ( Amer) 32 L Est GFR (Non-Af Amer) 26 L Glucose 117 H Calcium 8.6 Total Bilirubin 0.4 AST 70 H ALT 45 Alkaline Phosphatase 164 H Total Protein 6.0 L Albumin 2.7 L Impressions: Chest X-Ray 03/16/18 00:00 IMPRESSION: Minimal opacity left base. See above discussion. Bibasilar atelectasis noted on recent CT has essentially cleared. Qualifiers - * PATIENT BEING DISCHARGED WITH ANY OF THE FOLLOWING DIAGNOSIS: No
[2018-03-18] MEDS: DOXEPIN HCL 25 MG CAPSULE PO SCH (22:42)
[2018-03-18] MEDS: ATORVASTATIN CALCIUM 20 MG TABLET PO SCH (22:43)
[2018-03-19] MEDS: LEVOTHYROXINE SODIUM 0.15 MG TABLET PO SCH (05:16)
[2018-03-19] MEDS: NORMAL SALINE 1000 ML 1,000 ML IV PRN (05:16)
[2018-03-19] MEDS: LANSOPRAZOLE 30 MG TAB.RAP.DR PO SCH (05:18)
[2018-03-19] MEDS: INSULIN LISPRO 100 UNIT/ML 3 ML VIAL SUBCUT SCH (08:22)
[2018-03-19] MEDS: BUDESONIDE/FORMOTEROL 160-4.5 MCG 60 PUFF/6 GM MDI IH SCH (10:14)
[2018-03-19] MEDS: INSULIN GLARGINE,HUM.REC.ANLOG 1,000 UNIT/10 ML UNIT SUBCUT SCH (10:15)
[2018-03-19] MEDS: ENOXAPARIN SODIUM INJ 30 MG/0.3 ML DISP.SYRIN SUBCUT SCH (10:15)
[2018-03-19] MEDS: SITAGLIPTIN PHOSPHATE 25 MG TABLET PO SCH (10:16)
[2018-03-19] MEDS: METOPROLOL SUCCINATE 50 MG TAB.SR.24H PO SCH (10:16)
[2018-03-19] MEDS: AMLODIPINE BESYLATE 5 MG TABLET PO SCH (10:16)
[2018-03-19] MEDS: DULOXETINE HCL 30 MG CAPSULE.DR PO SCH (10:16)
[2018-03-19] MEDS: PREGABALIN 75 MG CAPSULE PO SCH (10:17)
[2018-03-19 11:09] VITALS: BP 163/58
== END 2018-03-19 11:49 ==
LOC: ER 13:44 → INTOOBSV 17:35 → EH 17:35 → 2N 03-16 03:37
PROVIDERS: ADMIT Internal Medicine; ATTEND Internal Medicine
DX: N17.9 Acute kidney failure, unspecified (principal); M62.81 Muscle weakness (generalized); E66.01 Morbid (severe) obesity due to excess calories; Z68.43 Body mass index [BMI] 50.0-59.9, adult; E11.42 Type 2 diabetes mellitus with diabetic polyneuropathy; E11.22 Type 2 diabetes mellitus with diabetic chronic kidney disease; I12.9 Hypertensive chronic kidney disease with stage 1 through stage 4 chronic kidney disease, or unspecified chronic kidney disease; N18.3 Chronic kidney disease, stage 3 (moderate); R53.81 Other malaise; R05 Cough; R01.1 Cardiac murmur, unspecified; R60.0 Localized edema; R06.2 Wheezing; R94.31 Abnormal electrocardiogram [ECG] [EKG]; E86.0 Dehydration; R26.89 Other abnormalities of gait and mobility; Z90.49 Acquired absence of other specified parts of digestive tract; Z96.653 Presence of artificial knee joint, bilateral; Z79.899 Other long term (current) drug therapy; Z79.4 Long term (current) use of insulin
CPT/HCPCS: 93005; 94640; 99285; 51701; 36415 ×4; 82962 ×5; 82803; 82550; 85025 ×3; 80048; 80053 ×4; 81001; 84484; 83036; 83605; 71045; 93010; 36600; 97110; 97116; 97163; A9270 ×47; J3490; J1650 ×4; J7030 ×3; G8978; G8979; G0378; J1815; J7620

== ENCOUNTER 2018-08-04 13:25 | Inpatient (IN) | payer MEDICARE, MEDICAID ==
[2018-08-04] MEDS ORDERED: IPRATROPIUM/ALBUTEROL 0.5-2.5 MG/3 ML AMPUL NEB ONE (13:51)
[2018-08-04] MEDS ORDERED: METHYLPREDNISOLONE INJ 125 MG/2 ML SDV IV ONE (14:03)
[2018-08-04] MEDS ORDERED: RACEPINEPHRINE HCL 2.25% NEB 0.5 ML AMPUL NEB ONE (14:03)
--- NOTE | 2018-08-04 14:09 | ER Document Report ---
ED Respiratory Problem - General Mode of Arrival: Ambulatory Information source: Patient TRAVEL OUTSIDE OF THE [place] IN LAST 30 DAYS: No <MAYI TRINH - Last Filed: 08/04/18 15:32> <ALMA CHINCHILLA - Last Filed: 08/04/18 16:34> - General Chief Complaint: Breathing Difficulty Stated Complaint: BREATHING PROBLEMS Time Seen by Provider: 08/04/18 13:51 Notes: Patient is a 73-year-old female with hypertension, hyperlipidemia, Type 2 diabetes, asthma, GERD presents to the emergency department complaining of difficulty breathing. Family at bedside states that the patient began to have difficulty breathing onset last night. He states that the patient was having cold-like symptoms that began yesterday and that her voice also became hoarse. Patient also complains of sore throat bilateral side, neck and back pain. Patient denies any difficultly swallowing. (MAYI TRINH) - Related Data Allergies/Adverse Reactions: aspirin [Aspirin] Allergy (Verified 08/04/18 13:30) Edema, GI UPSET morphine [Morphine] Allergy (Verified 08/04/18 13:30) ANAPHYLAXSIS, Facial swelling Past Medical History - General Information source: Patient - Social History Smoking Status: Never Smoker Cigarette use (# per day): No Chew tobacco use (# tins/day): No Smoking Education Provided: No Frequency of alcohol use: None Family History: Reviewed & Not Pertinent - Past Medical History Cardiac Medical History: Reports: Hx Hypercholesterolemia, Hx Hypertension Pulmonary Medical History: Reports: Hx Asthma, Hx COPD, Hx Pneumonia Endocrine Medical History: Reports: Hx Diabetes Mellitus Type 2, Hx Hypothyroidism Renal/ Medical History: Reports: Hx End Stage Renal Disease GI Medical History: Reports: Hx Gastroesophageal Reflux Disease, Hx Ulcer Musculoskeletal Medical History: Reports Hx Arthritis Psychiatric Medical History: Reports: Hx Depression Past Surgical History: Reports: Hx Cholecystectomy, Hx Hysterectomy, Hx Ort hopedic Surgery - bilateral knee replacement - Immunizations Immunizations up to date: Yes Hx Diphtheria, Pertussis, Tetanus Vaccination: No Hx Pneumococcal Vaccination: 03/11/12 <MAYI TRINH - Last Filed: 08/04/18 15:32> Review of Systems - Review of Systems Constitutional: No symptoms reported EENT: No symptoms reported Cardiovascular: No symptoms reported Respiratory: See HPI Gastrointestinal: No symptoms reported Genitourinary: No symptoms reported Female Genitourinary: No symptoms reported Musculoskeletal: See HPI Skin: No symptoms reported Hematologic/Lymphatic: No symptoms reported Neurological/Psychological: No symptoms reported -: Yes All other systems reviewed and negative <GAYATHRIIRENAHOOD - Last Filed: 08/04/18 15:32> Physical Exam <MAYI TRINH - Last Filed: 08/04/18 15:32> - Vital signs Vitals: Temp Pulse Resp BP Pulse Ox 99.4 F 69 22 H 191/86 H 94 08/04/18 13:39 08/04/18 13:39 08/04/18 13:39 08/04/18 13:39 08/04/18 13:39 - Notes Notes: GENERAL: Alert, interacts well, laying flat on her back, frequently coughing. Mild respiratory distress. HEAD: Normocephalic, atraumatic. EYES: Pupils equal, round, and reactive to light. Extraocular movements intact. ENT: Oral mucosa moist, tongue midline. Posterior oropharynx is swollen. NECK: Full range of motion. Supple. Trachea midline. LUNGS: Expiratory obstructive sound in the subglottic region. Expiratory wheezes and rhonchi. Voice is hoarse. Mild respiratory distress. HEART: Regular rate and rhythm. No murmurs, gallops, or rubs. ABDOMEN: Soft, morbidly obese, non-tender. Non-distended. Bowel sounds present in all 4 quadrants. EXTREMITIES: Moves all 4 extremities spontaneously. NEUROLOGICAL: Alert and oriented x3. Normal speech. PSYCH: Normal affect, normal mood. SKIN: Warm, dry, normal turgor. No rashes or lesions noted. (GAYATHRIMAYI) Course - Laboratory Result Diagrams: 08/04/18 14:22 08/04/18 14:22 <GAYATHRIIRENAHOOD - Last Filed: 08/04/18 15:32> - Laboratory Result Diagrams: 08/04/18 14:22 08/04/18 14:22 - Diagnostic Test Radiology reviewed: Reports reviewed - Chest x-ray does not show an acute process - EKG Interpretation by Me EKG shows normal: Sinus rhythm, [place], Intervals, QRS Complexes, ST-T Waves Rate: Normal - 63 Rhythm: NSR, APC's When compared to previous EKG there are: No significant change - Consults Dr. Givens Time consulted: 16:10 Consulted provider: will see as inpatient <ALMA CHINCHILLA - Last Filed: 08/04/18 16:34> - Re-evaluation Re-evalutation: 08/04/18 15:28 After the racemic epinephrine treatment, the patient states her breathing is much better. She is laying not quite completely supine, she is smiling, she still does have quite loud expiratory sounds emanating from the subglottic region. She states this is news since she developed her URI symptoms. (ALMA CHINCHILLA) - Vital Signs Vital signs: Temp Pulse Resp BP Pulse Ox 99.4 F 69 13 200/92 H 100 08/04/18 13:39 08/04/18 13:39 08/04/18 16:18 08/04/18 16:18 08/04/18 16:18 - Laboratory Laboratory results interpreted by me: 08/04/18 08/04/18 14:22 14:22 Hgb 11.8 L RDW 16.2 H Monocytes % 14.5 H BUN 34 H Creatinine 1.87 H Est GFR ( Amer) 32 L Est GFR (Non-Af Amer) 26 L Glucose 139 H AST 44 H Alkaline Phosphatase 148 H Creatine Kinase 626 H Albumin 3.1 L Critical Care Note - Critical Care Note Total time excluding time spent on procedures (mins): 35 <ALMA CHINCHILLA - Last Filed: 08/04/18 16:34> Discharge <MAYI TRINH - Last Filed: 08/04/18 15:32> - Discharge Admitting Provider: Laisha Unit Admitted: Telemetry <ALMA CHINCHILLA - Last Filed: 08/04/18 16:34> - Discharge Clinical Impression: Laryngitis, Morbid obesity Asthmatic bronchitis Qualifiers: Asthma severity: moderate Asthma persistence: persistent Asthma complication type: with acute exacerbation Qualified Code(s): J45.41 - Moderate persistent asthma with (acute) exacerbation Hypertension Qualifiers: Hypertension type: essential hypertension Qualified Code(s): I10 - Essential (p rimary) hypertension Type 2 diabetes mellitus Qualifiers: Diabetes mellitus retirement insulin use: unspecified retirement insulin use status Diabetes mellitus complication status: with unspecified complications Qualified Code(s): E11.8 - Type 2 diabetes mellitus with unspecified complications Acute asthma exacerbation Qualifiers: Asthma severity: moderate Asthma persistence: persistent Qualified Code(s): J45.41 - Moderate persistent asthma with (acute) exacerbation Condition: Stable Disposition: ADMITTED INPATIENT Referrals: BRAD GIVENS MD [Primary Care Provider] - Follow up as needed Scribe Attestation: 08/04/18 15:32 I personally performed the services described in the documentation, reviewed and edited the documentation which was dictated to the scribe in my presence, and it accurately records my words and actions. (ALMA CHINCHILLA) Scribe Documentation - Scribe Written by Scribe:: Nyla Warner, 08/04/2018 14:13 acting as scribe for :: Natalia <MAYI TRINH - Last Filed: 08/04/18 15:32>
[2018-08-04 14:46] LABS: ABSOLUTE EOSINOPHILS # (AUTO) 0.1 10^3/uL (0.0-0.6); ABSOLUTE LYMPHOCYTES (AUTO) 1.2 10^3/uL (0.5-4.7); ABSOLUTE MONOCYTES (AUTO) 1.1 10^3/uL (0.1-1.4); ABSOLUTE NEUT (AUTO) 5.2 10^3/uL (1.7-8.2); BASOPHILS % (AUTO) 0.5 % (0-2); EOSINOPHILS % (AUTO) 1.8 % (0-6); HEMATOCRIT 36.4 % (36.0-47.0); HEMOGLOBIN 11.8 g/dL (12.0-15.5); LYMPHOCYTES % (AUTO) 15.1 % (13-45); MEAN CORPUSCULAR HEMOGLOBIN 28.9 pg (27.0-33.4); MEAN CORPUSCULAR HGB CONC 32.4 g/dL (32.0-36.0); MEAN CORPUSCULAR VOLUME 89 fl (80-97); MONOCYTES % (AUTO) 14.5 % (3-13); PLATELET COUNT 165 10^3/uL (150-450); RED BLOOD COUNT 4.08 10^6/uL (3.72-5.28); RED CELL DISTRIBUTION WIDTH 16.2 % (11.5-14.0); SEGMENTED NEUTROPHILS % (AUTO) 68.1 % (42-78); TOTAL CELLS COUNTED % (AUTO) 100 %; WHITE BLOOD COUNT 7.7 10^3/uL (4.0-10.5)
--- NOTE | 2018-08-04 14:46 | RADIOLOGY REPORT (SQ) ---
EXAM DESCRIPTION: CHEST SINGLE VIEW COMPLETED DATE/TIME: 08/04/2018 2:35 pm REASON FOR STUDY: dyspnea, asthma COMPARISON: 07/18/2015 EXAM PARAMETERS: NUMBER OF VIEWS: One view. TECHNIQUE: Single frontal radiographic view of the chest acquired. RADIATION DOSE: NA LIMITATIONS: None. FINDINGS: LUNGS AND PLEURA: No opacities, masses or pneumothorax. No pleural effusion. MEDIASTINUM AND HILAR STRUCTURES: No masses. Contour normal. HEART AND VASCULAR STRUCTURES: Heart normal in size. Normal vasculature. BONES: No acute findings. HARDWARE: None in the chest. OTHER: No other significant finding. IMPRESSION: NO ACUTE RADIOGRAPHIC FINDING IN THE CHEST. TECHNICAL DOCUMENTATION: JOB ID: [id number] [employer]- All Rights Reserved Reading location - IP/workstation name: [email or web address]
[2018-08-04] MEDS: MAGNESIUM SULFATE/D5W 1 GM/100 ML RTUPB IV SCH ×2 (14:53→15:52)
[2018-08-04 15:19] LABS: CREATINE KINASE MB 3.66 ng/mL (<4.55)
[2018-08-04 15:20] LABS: TROPONIN I < 0.012 ng/mL
[2018-08-04 15:22] LABS: ALANINE AMINOTRANSFERASE 20 U/L (9-52); ALBUMIN 3.1 g/dL (3.5-5.0); ALKALINE PHOSPHATASE 148 U/L (38-126); ANION GAP 6 (5-19); ASPARTATE AMINO TRANSFERASE 44 U/L (14-36); BILIRUBIN,DIRECT 0.4 mg/dL (0.0-0.4); BILIRUBIN,TOTAL 0.6 mg/dL (0.2-1.3); BLOOD UREA NITROGEN 34 mg/dL (7-20); CALCIUM 8.5 mg/dL (8.4-10.2); CARBON DIOXIDE 30 mmol/L (22-30); CHLORIDE 104 mmol/L (98-107); CREATINE KINASE 626 U/L (30-135); GLUCOSE 139 mg/dL (75-110); POTASSIUM 4.1 mmol/L (3.6-5.0); SODIUM 139.5 mmol/L (137-145); TOTAL PROTEIN 6.4 g/dL (6.3-8.2)
[2018-08-04] MEDS ORDERED: METOPROLOL TARTRATE PF/INJ 5 MG/5 ML SDV IV ONE (15:23)
[2018-08-04] MEDS ORDERED: (PENDING PHARMACY ID) (Mirabegron [Myrbetriq] 50 MG) PO SCH (17:45)
[2018-08-04] MEDS ORDERED: (PENDING PHARMACY ID) (Linagliptin [Tradjenta] 5 MG) PO SCH (17:45)
[2018-08-04] MEDS ORDERED: (PENDING PHARMACY ID) (Metoprolol Succinate [Toprol Xl] 200 MG) PO SCH (17:45)
[2018-08-04] MEDS ORDERED: SITAGLIPTIN PHOSPHATE 25 MG TABLET PO SCH (18:45)
[2018-08-04 18:58] LABS: ARTERIAL BLOOD BASE EXCESS 2.6 mmol/L; ARTERIAL BLOOD H2CO3 1.65 mmol/L (1.05-1.35); ARTERIAL BLOOD HCO3 29.3 mmol/L (20-24); ARTERIAL BLOOD O2 SATURATION 96.3 % (94-98); ARTERIAL BLOOD PCO2 54.9 mmHg (35-45); ARTERIAL BLOOD PH 7.35 (7.35-7.45); ARTERIAL BLOOD PO2 89.9 mmHg (80-100)
[2018-08-04 19:00] LABS: ARTERIAL BLOOD FIO2 2L
--- NOTE | 2018-08-04 19:06 | EKG REPORT ---
SEVERITY:- ABNORMAL ECG - SINUS RHYTHM ATRIAL PREMATURE COMPLEX CONSIDER ANTEROSEPTAL INFARCT : Confirmed by: Rhett Hall 04-Aug-2018 19:06:24
[2018-08-04 19:44] LABS: INTERNATIONAL RATION (INR) 1.01; PROTHROMBIN TIME 13.9 SEC (11.4-15.4)
[2018-08-04 19:45] LABS: PARTIAL THROMBOPLASTIN TIME 33.7 SEC (23.5-35.8)
[2018-08-04 19:53] LABS: LIPASE 72.5 U/L (23-300); PHOSPHORUS 4.5 mg/dL (2.5-4.5)
[2018-08-04 20:09] LABS: FREE T4 (FREE THYROXINE) 1.31 ng/dL (0.78-2.19); TROPONIN I < 0.012 ng/mL
[2018-08-04 20:23] LABS: THYROID STIMULATING HORMONE 2.22 uIU/mL (0.47-4.68)
[2018-08-04] MEDS ORDERED: (PENDING PHARMACY ID) (Doxepin Hcl [Silenor] 6 MG) PO SCH (22:00)
[2018-08-04] MEDS: PREGABALIN 75 MG CAPSULE PO SCH (22:15)
[2018-08-04] MEDS: ATORVASTATIN CALCIUM 20 MG TABLET PO SCH (22:15)
[2018-08-04] MEDS: DULOXETINE HCL 30 MG CAPSULE.DR PO SCH (22:15)
[2018-08-04] MEDS: DEXAMETHASONE SOD PHOSPHATE INJ 4 MG/1 ML VIAL IV SCH (22:15)
[2018-08-04] MEDS: HEPARIN SOD (PORCINE) 5,000 UNIT/ML 1 ML SYRINGE SUBCUT SCH (22:15)
[2018-08-04] MEDS: LANSOPRAZOLE 15 MG TAB.RAP.DR PO SCH (22:15)
[2018-08-04] MEDS: MONTELUKAST SODIUM 10 MG TABLET PO SCH (22:15)
[2018-08-04] MEDS: METOPROLOL SUCCINATE 50 MG TAB.SR.24H PO SCH (22:15)
[2018-08-04 23:35] LABS: AMORPHOUS SEDIMENT,URINE TRACE /HPF; APPEARANCE,URINE CLOUDY; BILIRUBIN,URINE NEGATIVE (NEGATIVE); COLOR,URINE YELLOW; GLUCOSE, URINE >=500 mg/dL (NEGATIVE); KETONES,URINE NEGATIVE (NEGATIVE); LEUKOCYTE ESTERASE,URINE SMALL (NEGATIVE); NITRITE,URINE NEGATIVE (NEGATIVE); PROTEIN,URINE >=500 mg/dL (NEGATIVE); URINE SPECIFIC GRAVITY 1.016; UROBILINOGEN,URINE NEGATIVE mg/dL (<2.0)
[2018-08-04 23:54] LABS: URINE AMPHETAMINES SCREEN NEGATIVE; URINE BARBITURATES SCREEN NEGATIVE; URINE BENZODIAZEPINES SCREEN NEGATIVE; URINE COCAINE SCREEN NEGATIVE; URINE MARIJUANA (THC) SCREEN NEGATIVE; URINE METHADONE SCREEN NEGATIVE; URINE PHENCYCLIDINE SCREEN NEGATIVE
[2018-08-05 02:06] LABS: CREATINE KINASE MB 3.25 ng/mL (<4.55)
[2018-08-05 02:12] LABS: TROPONIN I < 0.012 ng/mL
[2018-08-05] MEDS: LEVOTHYROXINE SODIUM 0.15 MG TABLET PO SCH (06:17)
[2018-08-05] MEDS: LANSOPRAZOLE 15 MG TAB.RAP.DR PO SCH (06:17)
[2018-08-05] MEDS: HEPARIN SOD (PORCINE) 5,000 UNIT/ML 1 ML SYRINGE SUBCUT SCH ×3 (06:17→22:33)
[2018-08-05] MEDS: DEXAMETHASONE SOD PHOSPHATE INJ 4 MG/1 ML VIAL IV SCH ×3 (06:17→22:33)
[2018-08-05] MEDS: PREGABALIN 75 MG CAPSULE PO SCH ×2 (06:17→17:24)
[2018-08-05 07:49] LABS: ABSOLUTE LYMPHOCYTES (AUTO) 0.8 10^3/uL (0.5-4.7); ABSOLUTE MONOCYTES (AUTO) 0.3 10^3/uL (0.1-1.4); ABSOLUTE NEUT (AUTO) 4.9 10^3/uL (1.7-8.2); BASOPHILS % (AUTO) 0.1 % (0-2); HEMATOCRIT 32.7 % (36.0-47.0); HEMOGLOBIN 10.8 g/dL (12.0-15.5); LYMPHOCYTES % (AUTO) 13.2 % (13-45); MEAN CORPUSCULAR HEMOGLOBIN 29.2 pg (27.0-33.4); MEAN CORPUSCULAR VOLUME 88 fl (80-97); MONOCYTES % (AUTO) 5.7 % (3-13); PLATELET COUNT 159 10^3/uL (150-450); TOTAL CELLS COUNTED % (AUTO) 100 %
[2018-08-05] MEDS ORDERED: (PENDING PHARMACY ID) (Insulin Aspart [Novolog Flexpen] 5 UNIT) SUBCUT SCH (08:00)
[2018-08-05 08:09] LABS: ALANINE AMINOTRANSFERASE 21 U/L (9-52); ALBUMIN 2.7 g/dL (3.5-5.0); ALKALINE PHOSPHATASE 132 U/L (38-126); ANION GAP 9 (5-19); ASPARTATE AMINO TRANSFERASE 33 U/L (14-36); BILIRUBIN,DIRECT 0.3 mg/dL (0.0-0.4); BILIRUBIN,TOTAL 0.4 mg/dL (0.2-1.3); BLOOD UREA NITROGEN 41 mg/dL (7-20); CARBON DIOXIDE 26 mmol/L (22-30); CHLORIDE 104 mmol/L (98-107); CREATINE KINASE 517 U/L (30-135); GLUCOSE 279 mg/dL (75-110); POTASSIUM 4.3 mmol/L (3.6-5.0); SODIUM 138.7 mmol/L (137-145); TOTAL PROTEIN 5.8 g/dL (6.3-8.2)
[2018-08-05 08:16] LABS: CREATINE KINASE MB 3.17 ng/mL (<4.55)
[2018-08-05 08:22] LABS: TROPONIN I < 0.012 ng/mL
[2018-08-05] MEDS: INSULIN GLARGINE,HUM.REC.ANLOG 1,000 UNIT/10 ML UNIT SUBCUT SCH (08:42)
[2018-08-05] MEDS: AMLODIPINE BESYLATE 5 MG TABLET PO SCH (08:42)
[2018-08-05] MEDS: SITAGLIPTIN PHOSPHATE 50 MG TABLET PO SCH (08:42)
[2018-08-05] MEDS: METOPROLOL SUCCINATE 50 MG TAB.SR.24H PO SCH (08:42)
[2018-08-05] MEDS: INSULIN LISPRO 100 UNIT/ML 3 ML VIAL SUBCUT SCH ×3 (08:43→17:24)
[2018-08-05] MEDS: DULOXETINE HCL 30 MG CAPSULE.DR PO SCH ×2 (10:01→22:33)
[2018-08-05] MEDS: IPRATROPIUM/ALBUTEROL 0.5-2.5 MG/3 ML AMPUL NEB PRN (11:11)
--- NOTE | 2018-08-05 21:11 | PDOC H&P ---
History of Present Illness Admission Date/PCP: 08/04/18 16:40 BRAD GIVENS MD History of Present Illness: ONDINA ENRIQUEZ is a 73 year old female,She has a history of type 2 diabetes mellitus, morbid obesity, neuropathy, chronic kidney disease stage III, persistent asthma, she came to the emergency room for evaluation of shortness of breath, there was antecedent history of flulike symptoms nasal congestion. In the emergency room she was evaluated, on auscultation she sounds like stridor that suggest upper airway obstruction, there is associated laryngitis. Past Medical History Cardiac Medical History: Reports: Hyperlipidema, Hypertension Pulmonary Medical History: Reports: Asthma, Pneumonia Endocrine Medical History: Reports: Diabetes Mellitus Type 2, Hypothyroidism Renal/ Medical History: Reports: End Stage Renal Disease GI Medical History: Reports: Gastroesophageal Reflux Disease Musculoskeltal Medical History: Reports: Arthritis Psychiatric Medical History: Reports: Depression Hematology: Reports: Anemia Past Surgical History Past Surgical History: Reports: Cholecystectomy, Hysterectomy, Orthopedic Surg kenrick - bilateral knee replacement Denies: Pacemaker Social History Smoking Status: Never Smoker Frequency of Alcohol Use: None Hx Recreational Drug Use: No Drugs: None Hx Prescription Drug Abuse: No - Advance Directive Resuscitation Status: Full Code Family History Family History: Reviewed & Not Pertinent Parental Family History Reviewed: Yes Children Family History Reviewed: Yes Sibling(s) Family History Reviewed.: Yes Medication/Allergy Home Medications: Amlodipine Besylate [Norvasc 5 mg Tablet] 5 mg PO QAM 08/04/18 Atorvastatin Calcium [Lipitor 20 mg Tablet] 20 mg PO QHS 08/04/18 Doxepin HCl [Silenor] 6 mg PO QHS 08/04/18 Duloxetine HCl [Cymbalta] 60 mg PO Q12 08/04/18 Insulin Aspart [Novolog Flexpen] 5 unit SUBCUT AC 08/04/18 Insulin Glargine,Hum.rec.anlog [Basaglar Kwikpen U-100] 52 unit SQ QAM 08/04/18 Levothyroxine Sodium 150 mcg PO Q6AM 08/04/18 Linagliptin [Tradjenta] 5 mg PO QAM 08/04/18 Metoprolol Succinate [Toprol Xl] 200 mg PO QAM 08/04/18 Mirabegron [Myrbetriq] 50 mg PO QAM 08/04/18 Montelukast Sodium [Singulair 10 mg Tablet] 10 mg PO QHS 08/04/18 Omeprazole Magnesium [Prilosec Otc] 20 mg PO Q6AM 08/04/18 Pregabalin [Lyrica] 150 mg PO Q12 08/04/18 Allergies/Adverse Reactions: aspirin [Aspirin] Allergy (Verified 08/04/18 13:30) Edema, GI UPSET morphine [Morphine] Allergy (Verified 08/04/18 13:30) ANAPHYLAXSIS, Facial swelling Review of Systems Constitutional: ABSENT: chills, fever(s), headache(s), weight gain, weight loss Eyes: ABSENT: visual disturbances Ears: ABSENT: hearing changes Cardiovascular: PRESENT: dyspnea on exertion. ABSENT: chest pain, edema, ort hropnea, palpitations Respiratory: PRESENT: cough, dyspnea. ABSENT: hemoptysis Gastrointestinal: ABSENT: abdominal pain, constipation, diarrhea, hematemesis, hematochezia, nausea, vomiting Genitourinary: ABSENT: dysuria, hematuria Musculoskeletal: ABSENT: joint swelling Integumentary: ABSENT: rash, wounds Neurological: ABSENT: abnormal gait, abnormal speech, confusion, dizziness, focal weakness, syncope Psychiatric: ABSENT: anxiety, depression, homidical ideation, suicidal ideation Endocrine: ABSENT: cold intolerance, heat intolerance, menstrual abnormalities, polydipsia, polyuria Hematologic/Lymphatic: ABSENT: easy bleeding, easy bruising, lymphadenopathy Physical Exam Vital Signs: Temp Pulse Resp BP Pulse Ox 97.8 F 55 L 16 132/61 H 97 08/05/18 19:38 08/05/18 19:38 08/05/18 19:38 08/05/18 19:38 08/05/18 19:38 Intake & Output 08/04/18 08/05/18 08/06/18 06:59 06:59 06:59 Intake Total 200 474 Balance 200 474 Weight 156 kg General appearance: PRESENT: mild distress Head exam: PRESENT: atraumatic, normocephalic Eye exam: PRESENT: PERRLA Ear exam: PRESENT: normal external ear exam Mouth exam: PRESENT: moist Neck exam: PRESENT: full ROM Respiratory exam: PRESENT: stridor Cardiovascular exam: PRESENT: RRR, +S1, +S2 Vascular exam: PRESENT: normal capillary refill GI/Abdominal exam: PRESENT: normal bowel sounds, soft Rectal exam: PRESENT: deferred Neurological exam: PRESENT: alert, CN II-XII grossly intact Psychiatric exam: PRESENT: appropriate affect, normal mood Skin exam: PRESENT: dry, intact, warm Results Laboratory Results: 08/05/18 07:14 08/05/18 07:14 08/04/18 08/05/18 08/05/18 23:10 07:14 07:14 WBC 6.0 RBC 3.70 L Hgb 10.8 L Hct 32.7 L MCV 88 MCH 29.2 MCHC 33.0 RDW 16.0 H Plt Count 159 Seg Neutrophils % 81.0 H Lymphocytes % 13.2 Monocytes % 5.7 Eosinophils % 0.0 Basophils % 0.1 Absolute Neutrophils 4.9 Absolute Lymphocytes 0.8 Absolute Monocytes 0.3 Absolute Eosinophils 0.0 Absolute Basophils 0.0 Sodium 138.7 Potassium 4.3 Chloride 104 Carbon Dioxide 26 Anion Gap 9 BUN 41 H Creatinine 2.27 H Est GFR ( Amer) 25 L Est GFR (Non-Af Amer) 21 L Glucose 279 H Calcium 8.0 L Total Bilirubin 0.4 AST 33 ALT 21 Alkaline Phosphatase 132 H Total Protein 5.8 L Albumin 2.7 L Urine Color YELLOW Urine Appearance CLOUDY Urine pH 5.0 Ur Specific [place] 1.016 Urine Protein >=500 H Urine Glucose (UA) >=500 H Urine Ketones NEGATIVE Urine Blood MODERATE H Urine Nitrite NEGATIVE Ur Leukocyte Esterase SMALL H Urine WBC (Auto) 143 Urine RBC (Auto) 8 08/04/18 08/04/18 08/04/18 14:22 14:22 19:19 Creatine Kinase 626 H 618 H CK-MB (CK-2) 3.66 Troponin I < 0.012 08/04/18 08/05/18 08/05/18 19:19 01:20 01:20 Creatine Kinase 505 H CK-MB (CK-2) 3.70 3.25 Troponin I < 0.012 < 0.012 08/05/18 08/05/18 07:14 07:14 Creatine Kinase 517 H CK-MB (CK-2) 3.17 Troponin I < 0.012 Impressions: Chest X-Ray 08/04/18 14:06 IMPRESSION: NO ACUTE RADIOGRAPHIC FINDING IN THE CHEST. Assessment & Plan - Diagnosis (1) Stridor Is this a current diagnosis for this admission?: Yes Plan: This is most likely due to viral laryngotracheobronchitis, she was treated with racemic epinephrine, Decadron (2) Laryngotracheobronchitis Is this a current diagnosis for this admission?: Yes (3) Diabetes Qualifiers: Diabetes mellitus type: type 2 Diabetes mellitus detention insulin use: w ith detention use Diabetes mellitus complication status: with kidney comp lications Diabetes mellitus complication detail: with chronic kidney disease Chronic kidney disease stage: stage 3 (moderate) Qualified Code(s): E11.22 - Type 2 diabetes mellitus with diabetic chronic kidney disease; N18.3 - Chronic kidney disease, stage 3 (moderate); Z79.4 - manager intermediate (current) use of insulin Is this a current diagnosis for this admission?: Yes
--- NOTE | 2018-08-05 21:13 | PDOC PROGRESS REPORT ---
Subjective Progress Note for:: 08/05/18 Subjective:: Patient was seen by the bedside, she is much better today compared to yesterday Reason For Visit: ASTHMATIC BRONCHITIS,LARYNGITIS,HYPERTENSION,TYPE Physical Exam Vital Signs: Temp Pulse Resp BP Pulse Ox 97.8 F 55 L 16 132/61 H 97 08/05/18 19:38 08/05/18 19:38 08/05/18 19:38 08/05/18 19:38 08/05/18 19:38 Intake & Output 08/04/18 08/05/18 08/06/18 06:59 06:59 06:59 Intake Total 200 474 Balance 200 474 Weight 156 kg General appearance: PRESENT: no acute distress Eye exam: PRESENT: PERRLA Respiratory exam: PRESENT: rhonchi Cardiovascular exam: PRESENT: +S1, +S2 Neurological exam: PRESENT: alert Results Laboratory Results: 08/05/18 07:14 08/05/18 07:14 08/04/18 08/05/18 08/05/18 23:10 07:14 07:14 WBC 6.0 RBC 3.70 L Hgb 10.8 L Hct 32.7 L MCV 88 MCH 29.2 MCHC 33.0 RDW 16.0 H Plt Count 159 Seg Neutrophils % 81.0 H Lymphocytes % 13.2 Monocytes % 5.7 Eosinophils % 0.0 Basophils % 0.1 Absolute Neutrophils 4.9 Absolute Lymphocytes 0.8 Absolute Monocytes 0.3 Absolute Eosinophils 0.0 Absolute Basophils 0.0 Sodium 138.7 Potassium 4.3 Chloride 104 Carbon Dioxide 26 Anion Gap 9 BUN 41 H Creatinine 2.27 H Est GFR ( Amer) 25 L Est GFR (Non-Af Amer) 21 L Glucose 279 H Calcium 8.0 L Total Bilirubin 0.4 AST 33 ALT 21 Alkaline Phosphatase 132 H Total Protein 5.8 L Albumin 2.7 L Urine Color YELLOW Urine Appearance CLOUDY Urine pH 5.0 Ur Specific [place] 1.016 Urine Protein >=500 H Urine Glucose (UA) >=500 H Urine Ketones NEGATIVE Urine Blood MODERATE H Urine Nitrite NEGATIVE Ur Leukocyte Esterase SMALL H Urine WBC (Auto) 143 Urine RBC (Auto) 8 08/04/18 08/04/18 08/04/18 14:22 14:22 19:19 Creatine Kinase 626 H 618 H CK-MB (CK-2) 3.66 Troponin I < 0.012 08/04/18 08/05/18 08/05/18 19:19 01:20 01:20 Creatine Kinase 505 H CK-MB (CK-2) 3.70 3.25 Troponin I < 0.012 < 0.012 08/05/18 08/05/18 07:14 07:14 Creatine Kinase 517 H CK-MB (CK-2) 3.17 Troponin I < 0.012 Impressions: Chest X-Ray 08/04/18 14:06 IMPRESSION: NO ACUTE RADIOGRAPHIC FINDING IN THE CHEST. Assessment & Plan - Diagnosis (1) Stridor Is this a current diagnosis for this admission?: Yes Plan: Continue treatment (2) Laryngotracheobronchitis Is this a current diagnosis for this admission?: Yes (3) Diabetes Qualifiers: Diabetes mellitus type: type 2 Diabetes mellitus senior care insulin use: wit h senior care use Diabetes mellitus complication status: with kidney compli cations Diabetes mellitus complication detail: with chronic kidney disease Chronic kidney disease stage: stage 3 (moderate) Qualified Code(s): E11.22 - Type 2 diabetes mellitus with diabetic chronic kidney disease; N18.3 - Chronic kidney disease, stage 3 (moderate); Z79.4 - senior lead developer (current) use of insulin Is this a current diagnosis for this admission?: Yes
[2018-08-05] MEDS: MONTELUKAST SODIUM 10 MG TABLET PO SCH (22:33)
[2018-08-05] MEDS: ATORVASTATIN CALCIUM 20 MG TABLET PO SCH (22:33)
[2018-08-06] MEDS: IPRATROPIUM/ALBUTEROL 0.5-2.5 MG/3 ML AMPUL NEB PRN ×3 (00:14→17:40)
[2018-08-06 04:52] LABS: ABSOLUTE MONOCYTES (AUTO) 0.6 10^3/uL (0.1-1.4); BASOPHILS % (AUTO) 0.2 % (0-2); HEMATOCRIT 31.7 % (36.0-47.0); HEMOGLOBIN 10.4 g/dL (12.0-15.5); MEAN CORPUSCULAR HEMOGLOBIN 28.9 pg (27.0-33.4); MEAN CORPUSCULAR HGB CONC 32.8 g/dL (32.0-36.0); MEAN CORPUSCULAR VOLUME 88 fl (80-97); MONOCYTES % (AUTO) 7.9 % (3-13); PLATELET COUNT 155 10^3/uL (150-450); RED CELL DISTRIBUTION WIDTH 15.9 % (11.5-14.0); SEGMENTED NEUTROPHILS % (AUTO) 78.9 % (42-78); TOTAL CELLS COUNTED % (AUTO) 100 %; WHITE BLOOD COUNT 7.6 10^3/uL (4.0-10.5)
[2018-08-06 05:14] LABS: ALANINE AMINOTRANSFERASE 20 U/L (9-52); ALBUMIN 2.7 g/dL (3.5-5.0); ALKALINE PHOSPHATASE 124 U/L (38-126); ANION GAP 6 (5-19); ASPARTATE AMINO TRANSFERASE 33 U/L (14-36); BILIRUBIN,DIRECT 0.2 mg/dL (0.0-0.4); BILIRUBIN,TOTAL 0.2 mg/dL (0.2-1.3); BLOOD UREA NITROGEN 60 mg/dL (7-20); CALCIUM 8.1 mg/dL (8.4-10.2); CARBON DIOXIDE 29 mmol/L (22-30); CHLORIDE 105 mmol/L (98-107); GLUCOSE 192 mg/dL (75-110); POTASSIUM 4.7 mmol/L (3.6-5.0); SODIUM 140.4 mmol/L (137-145); TOTAL PROTEIN 5.6 g/dL (6.3-8.2)
[2018-08-06] MEDS: PREGABALIN 75 MG CAPSULE PO SCH ×2 (06:00→17:30)
[2018-08-06] MEDS: DEXAMETHASONE SOD PHOSPHATE INJ 4 MG/1 ML VIAL IV SCH ×3 (06:00→21:10)
[2018-08-06] MEDS: HEPARIN SOD (PORCINE) 5,000 UNIT/ML 1 ML SYRINGE SUBCUT SCH ×3 (06:00→21:10)
[2018-08-06] MEDS: LANSOPRAZOLE 15 MG TAB.RAP.DR PO SCH (06:00)
[2018-08-06] MEDS: LEVOTHYROXINE SODIUM 0.15 MG TABLET PO SCH (06:00)
[2018-08-06] MEDS: METOPROLOL SUCCINATE 50 MG TAB.SR.24H PO SCH (09:33)
[2018-08-06] MEDS: AMLODIPINE BESYLATE 5 MG TABLET PO SCH (09:33)
[2018-08-06] MEDS: SITAGLIPTIN PHOSPHATE 50 MG TABLET PO SCH (09:33)
[2018-08-06] MEDS: DULOXETINE HCL 30 MG CAPSULE.DR PO SCH ×2 (09:33→21:09)
[2018-08-06] MEDS: INSULIN LISPRO 100 UNIT/ML 3 ML VIAL SUBCUT SCH ×3 (09:34→17:32)
[2018-08-06] MEDS: INSULIN GLARGINE,HUM.REC.ANLOG 1,000 UNIT/10 ML UNIT SUBCUT SCH (09:34)
[2018-08-06] MEDS ORDERED: BENZOCAINE/MENTHOL SORE THROAT LOZENGE BUCCAL PRN (19:03)
[2018-08-06] MEDS ORDERED: DEXTROSE 40% GEL 15 GM TUBE PO PRN ×2 (20:44)
[2018-08-06] MEDS ORDERED: GLUCAGON,HUMAN RECOMB 1 MG INJ IM PRN (20:44)
[2018-08-06] MEDS ORDERED: DEXTROSE 50%-WATER 25 GM/50 ML DISP.SYRIN IV PRN ×2 (20:44)
--- NOTE | 2018-08-06 20:48 | PDOC PROGRESS REPORT ---
Subjective Progress Note for:: 08/06/18 Subjective:: Patient was seen by the bedside, there is improvement in the stridor it is more wheezing now than stridor Reason For Visit: ASTHMATIC BRONCHITIS,LARYNGITIS,HYPERTENSION,TYPE Physical Exam Vital Signs: Temp Pulse Resp BP Pulse Ox 98.4 F 56 L 12 139/64 H 99 08/06/18 19:50 08/06/18 19:50 08/06/18 19:50 08/06/18 19:50 08/06/18 19:50 Intake & Output 08/05/18 08/06/18 08/07/18 06:59 06:59 06:59 Intake Total 026 589 4492 Balance 682 450 9848 Weight 156 kg 158.1 kg 158.1 kg General appearance: PRESENT: no acute distress Eye exam: PRESENT: PERRLA Respiratory exam: PRESENT: stridor Cardiovascular exam: PRESENT: +S1, +S2 GI/Abdominal exam: PRESENT: soft Neurological exam: PRESENT: alert Results Laboratory Results: 08/06/18 04:00 08/06/18 04:00 08/06/18 08/06/18 04:00 04:00 WBC 7.6 RBC 3.60 L Hgb 10.4 L Hct 31.7 L MCV 88 MCH 28.9 MCHC 32.8 RDW 15.9 H Plt Count 155 Seg Neutrophils % 78.9 H Lymphocytes % 13.0 Monocytes % 7.9 Eosinophils % 0.0 Basophils % 0.2 Absolute Neutrophils 6.0 Absolute Lymphocytes 1.0 Absolute Monocytes 0.6 Absolute Eosinophils 0.0 Absolute Basophils 0.0 Sodium 140.4 Potassium 4.7 Chloride 105 Carbon Dioxide 29 Anion Gap 6 BUN 60 H Creatinine 2.83 H Est GFR ( Amer) 20 L Est GFR (Non-Af Amer) 16 L Glucose 192 H Calcium 8.1 L Total Bilirubin 0.2 AST 33 ALT 20 Alkaline Phosphatase 124 Total Protein 5.6 L Albumin 2.7 L 08/04/18 16:18 Throat Throat Culture - Final NORMAL MATILDE 08/04/18 08/04/18 08/04/18 14:22 14:22 19:19 Creatine Kinase 626 H 618 H CK-MB (CK-2) 3.66 Troponin I < 0.012 08/04/18 08/05/18 08/05/18 19:19 01:20 01:20 Creatine Kinase 505 H CK-MB (CK-2) 3.70 3.25 Troponin I < 0.012 < 0.012 08/05/18 08/05/18 07:14 07:14 Creatine Kinase 517 H CK-MB (CK-2) 3.17 Troponin I < 0.012 Impressions: Chest X-Ray 08/04/18 14:06 IMPRESSION: NO ACUTE RADIOGRAPHIC FINDING IN THE CHEST. Assessment & Plan - Diagnosis (1) Stridor Is this a current diagnosis for this admission?: Yes Plan: Continue IV Decadron (2) Laryngotracheobronchitis Is this a current diagnosis for this admission?: Yes (3) Type 2 diabetes mellitus with diabetic polyneuropathy Qualifiers: Diabetes mellitus tooling manager insulin use: with tooling manager use Is this a current diagnosis for this admission?: Yes
[2018-08-06] MEDS: ATORVASTATIN CALCIUM 20 MG TABLET PO SCH (21:09)
[2018-08-06] MEDS: MONTELUKAST SODIUM 10 MG TABLET PO SCH (21:10)
[2018-08-06] MEDS ORDERED: INSULIN LISPRO 100 UNIT/ML 3 ML VIAL ONE (21:18)
[2018-08-06] MEDS: INSULIN LISPRO 100 UNIT/ML 3 ML VIAL SUBCUT PRN (21:56)
[2018-08-07] MEDS: DEXAMETHASONE SOD PHOSPHATE INJ 4 MG/1 ML VIAL IV SCH ×3 (06:00→22:11)
[2018-08-07] MEDS: LEVOTHYROXINE SODIUM 0.15 MG TABLET PO SCH (06:02)
[2018-08-07] MEDS: LANSOPRAZOLE 15 MG TAB.RAP.DR PO SCH (06:02)
[2018-08-07] MEDS: PREGABALIN 75 MG CAPSULE PO SCH ×2 (06:02→18:04)
[2018-08-07] MEDS: HEPARIN SOD (PORCINE) 5,000 UNIT/ML 1 ML SYRINGE SUBCUT SCH ×3 (06:03→22:11)
[2018-08-07 07:09] LABS: ABSOLUTE LYMPHOCYTES (AUTO) 1.4 10^3/uL (0.5-4.7); ABSOLUTE MONOCYTES (AUTO) 0.8 10^3/uL (0.1-1.4); ABSOLUTE NEUT (AUTO) 9.4 10^3/uL (1.7-8.2); BASOPHILS % (AUTO) 0.1 % (0-2); EOSINOPHILS % (AUTO) 0.1 % (0-6); HEMATOCRIT 32.9 % (36.0-47.0); HEMOGLOBIN 10.9 g/dL (12.0-15.5); LYMPHOCYTES % (AUTO) 12.1 % (13-45); MEAN CORPUSCULAR HGB CONC 33.1 g/dL (32.0-36.0); MEAN CORPUSCULAR VOLUME 88 fl (80-97); MONOCYTES % (AUTO) 6.7 % (3-13); PLATELET COUNT 178 10^3/uL (150-450); RED BLOOD COUNT 3.76 10^6/uL (3.72-5.28); RED CELL DISTRIBUTION WIDTH 16.1 % (11.5-14.0); TOTAL CELLS COUNTED % (AUTO) 100 %; WHITE BLOOD COUNT 11.6 10^3/uL (4.0-10.5)
[2018-08-07 07:40] LABS: ALANINE AMINOTRANSFERASE 22 U/L (9-52); ALBUMIN 2.9 g/dL (3.5-5.0); ALKALINE PHOSPHATASE 131 U/L (38-126); ANION GAP 6 (5-19); ASPARTATE AMINO TRANSFERASE 33 U/L (14-36); BILIRUBIN,DIRECT 0.3 mg/dL (0.0-0.4); BILIRUBIN,TOTAL 0.3 mg/dL (0.2-1.3); BLOOD UREA NITROGEN 64 mg/dL (7-20); CALCIUM 8.6 mg/dL (8.4-10.2); CARBON DIOXIDE 29 mmol/L (22-30); CHLORIDE 106 mmol/L (98-107); GLUCOSE 150 mg/dL (75-110); POTASSIUM 4.6 mmol/L (3.6-5.0); SODIUM 140.5 mmol/L (137-145)
[2018-08-07] MEDS: METOPROLOL SUCCINATE 50 MG TAB.SR.24H PO SCH (08:16)
[2018-08-07] MEDS: INSULIN GLARGINE,HUM.REC.ANLOG 1,000 UNIT/10 ML UNIT SUBCUT SCH (08:16)
[2018-08-07] MEDS: AMLODIPINE BESYLATE 5 MG TABLET PO SCH (08:16)
[2018-08-07] MEDS: INSULIN LISPRO 100 UNIT/ML 3 ML VIAL SUBCUT SCH ×3 (08:18→18:04)
[2018-08-07] MEDS: SITAGLIPTIN PHOSPHATE 50 MG TABLET PO SCH (08:18)
[2018-08-07] MEDS: IPRATROPIUM/ALBUTEROL 0.5-2.5 MG/3 ML AMPUL NEB PRN (08:46)
[2018-08-07] MEDS: DULOXETINE HCL 30 MG CAPSULE.DR PO SCH ×2 (09:58→22:11)
--- NOTE | 2018-08-07 12:06 | PDOC PROGRESS REPORT ---
Subjective Progress Note for:: 08/07/18 Subjective:: Patient was admitted for the stridor and laryngeal bronchitis currently doing better Patient is denied any chest pain denied any shortness of the breath Patient currently on IV steroid Reason For Visit: ASTHMATIC BRONCHITIS,LARYNGITIS,HYPERTENSION,TYPE Physical Exam Vital Signs: Temp Pulse Resp BP Pulse Ox 97.7 F 71 18 188/84 H 96 08/07/18 08:07 08/07/18 08:46 08/07/18 08:46 08/07/18 08:07 08/07/18 08:46 Intake & Output 08/06/18 08/07/18 08/08/18 06:59 06:59 06:59 Intake Total 474 1275 Balance 474 1275 Weight 158.1 kg 157.9 kg General appearance: PRESENT: no acute distress, obese, well-developed, well- nourished Head exam: PRESENT: atraumatic, normocephalic Eye exam: PRESENT: conjunctiva pink, EOMI, PERRLA. ABSENT: scleral icterus Ear exam: PRESENT: normal external ear exam Mouth exam: PRESENT: moist, tongue midline Neck exam: PRESENT: full ROM. ABSENT: carotid bruit, JVD, lymphadenopathy, thyromegaly Respiratory exam: PRESENT: wheezes Cardiovascular exam: PRESENT: RRR. ABSENT: diastolic murmur, rubs, systolic m urmur Pulses: PRESENT: normal dorsalis pedis pul, +2 pedal pulses bilateral Vascular exam: PRESENT: normal capillary refill GI/Abdominal exam: PRESENT: normal bowel sounds, soft. ABSENT: distended, guarding, mass, organolmegaly, rebound, tenderness Rectal exam: PRESENT: deferred Neurological exam: PRESENT: alert, awake, oriented to person, oriented to place, oriented to time, oriented to situation, CN II-XII grossly intact. ABSENT: motor sensory deficit Psychiatric exam: PRESENT: appropriate affect, normal mood. ABSENT: homicidal ideation, suicidal ideation Skin exam: PRESENT: dry, intact, warm. ABSENT: cyanosis, rash Results Laboratory Results: 08/07/18 06:46 08/07/18 06:46 08/07/18 08/07/18 06:46 06:46 WBC 11.6 H RBC 3.76 Hgb 10.9 L Hct 32.9 L MCV 88 MCH 29.0 MCHC 33.1 RDW 16.1 H Plt Count 178 Seg Neutrophils % 81.0 H Lymphocytes % 12.1 L Monocytes % 6.7 Eosinophils % 0.1 Basophils % 0.1 Absolute Neutrophils 9.4 H Absolute Lymphocytes 1.4 Absolute Monocytes 0.8 Absolute Eosinophils 0.0 Absolute Basophils 0.0 Sodium 140.5 Potassium 4.6 Chloride 106 Carbon Dioxide 29 Anion Gap 6 BUN 64 H Creatinine 2.07 H Est GFR ( Amer) 28 L Est GFR (Non-Af Amer) 23 L Glucose 150 H Calcium 8.6 Total Bilirubin 0.3 AST 33 ALT 22 Alkaline Phosphatase 131 H Total Protein 6.0 L Albumin 2.9 L 08/04/18 16:18 Throat Throat Culture - Final NORMAL MATILDE 08/04/18 08/04/18 08/04/18 14:22 14:22 19:19 Creatine Kinase 626 H 618 H CK-MB (CK-2) 3.66 Troponin I < 0.012 08/04/18 08/05/18 08/05/18 19:19 01:20 01:20 Creatine Kinase 505 H CK-MB (CK-2) 3.70 3.25 Troponin I < 0.012 < 0.012 08/05/18 08/05/18 07:14 07:14 Creatine Kinase 517 H CK-MB (CK-2) 3.17 Troponin I < 0.012 Impressions: Chest X-Ray 08/04/18 14:06 IMPRESSION: NO ACUTE RADIOGRAPHIC FINDING IN THE CHEST. Assessment & Plan - Diagnosis (1) Stridor Is this a current diagnosis for this admission?: Yes Plan: Currently doing much better continues to IV Decadron (2) Acute asthma exacerbation Qualifiers: Asthma severity: moderate Asthma persistence: persistent Qualified Code(s): J45.41 - Moderate persistent asthma with (acute) exacerbation Is this a current diagnosis for this admission?: Yes Plan: Continues to nebulizer treatment and IV steroid (3) Hypertension Qualifiers: Hypertension type: essential hypertension Qualified Code(s): I10 - Essential (primary) hypertension Is this a current diagnosis for this admission?: Yes Plan: Currently all stable (4) Laryngotracheobronchitis Is this a current diagnosis for this admission?: Yes (5) Type 2 diabetes mellitus Qualifiers: Diabetes mellitus jail insulin use: unspecified parts counterman insulin use status Diabetes mellitus complication status: with unspecified complications Qualified Code(s): E11.8 - Type 2 diabetes mellitus with unspecified complications Is this a current diagnosis for this admission?: Yes Plan: Continue sliding scale - Time Time Spent with patient: 15-24 minutes Medications reviewed and adjusted accordingly: Yes Anticipated discharge: Other Within: Other - Plan Summary Plan Summary: We will get the chest x-ray repeat the blood work in the morning continues to current medication
[2018-08-07] MEDS: INSULIN LISPRO 100 UNIT/ML 3 ML VIAL SUBCUT PRN ×3 (13:19→22:16)
--- NOTE | 2018-08-07 13:47 | RADIOLOGY REPORT (SQ) ---
EXAM DESCRIPTION: CHEST SINGLE VIEW COMPLETED DATE/TIME: 08/07/2018 1:35 pm REASON FOR STUDY: sob COMPARISON: 08/04/2018. FINDINGS: Single-view chest AP portable semi-upright at 1255 hours. Low lung volumes accentuates central vascularity. Allowing for this, clear lungs without evidence of overt failure or pneumonia. No pneumothorax or significant pleural fluid. TECHNICAL DOCUMENTATION: JOB ID: [id number] Reading location - IP/workstation name: [email or web address]
[2018-08-07] MEDS ORDERED: AMLODIPINE BESYLATE 5 MG TABLET PO ONE (19:00)
[2018-08-07] MEDS: MONTELUKAST SODIUM 10 MG TABLET PO SCH (22:11)
[2018-08-07] MEDS: ATORVASTATIN CALCIUM 20 MG TABLET PO SCH (22:11)
[2018-08-08 04:52] LABS: ABSOLUTE LYMPHOCYTES (AUTO) 1.3 10^3/uL (0.5-4.7); ABSOLUTE MONOCYTES (AUTO) 0.9 10^3/uL (0.1-1.4); ABSOLUTE NEUT (AUTO) 8.1 10^3/uL (1.7-8.2); BASOPHILS % (AUTO) 0.3 % (0-2); HEMATOCRIT 34.7 % (36.0-47.0); HEMOGLOBIN 11.3 g/dL (12.0-15.5); LYMPHOCYTES % (AUTO) 12.2 % (13-45); MEAN CORPUSCULAR HEMOGLOBIN 29.1 pg (27.0-33.4); MEAN CORPUSCULAR HGB CONC 32.7 g/dL (32.0-36.0); MEAN CORPUSCULAR VOLUME 89 fl (80-97); MONOCYTES % (AUTO) 8.9 % (3-13); PLATELET COUNT 157 10^3/uL (150-450); RED CELL DISTRIBUTION WIDTH 16.1 % (11.5-14.0); SEGMENTED NEUTROPHILS % (AUTO) 78.6 % (42-78); TOTAL CELLS COUNTED % (AUTO) 100 %; WHITE BLOOD COUNT 10.3 10^3/uL (4.0-10.5)
[2018-08-08] MEDS: LEVOTHYROXINE SODIUM 0.15 MG TABLET PO SCH (05:19)
[2018-08-08] MEDS: LANSOPRAZOLE 15 MG TAB.RAP.DR PO SCH (05:19)
[2018-08-08] MEDS: DEXAMETHASONE SOD PHOSPHATE INJ 4 MG/1 ML VIAL IV SCH ×3 (05:19→22:32)
[2018-08-08] MEDS: HEPARIN SOD (PORCINE) 5,000 UNIT/ML 1 ML SYRINGE SUBCUT SCH (05:19)
[2018-08-08] MEDS: PREGABALIN 75 MG CAPSULE PO SCH ×2 (05:20→17:02)
[2018-08-08 06:36] LABS: BLOOD UREA NITROGEN 61 mg/dL (7-20); CALCIUM 8.5 mg/dL (8.4-10.2); GLUCOSE 185 mg/dL (75-110); POTASSIUM 4.4 mmol/L (3.6-5.0)
[2018-08-08 06:42] LABS: CARBON DIOXIDE 33 mmol/L (22-30); CHLORIDE 105 mmol/L (98-107); SODIUM 141.6 mmol/L (137-145)
[2018-08-08 06:46] LABS: ANION GAP 4 (5-19)
[2018-08-08] MEDS: SITAGLIPTIN PHOSPHATE 50 MG TABLET PO SCH (07:57)
[2018-08-08] MEDS: INSULIN LISPRO 100 UNIT/ML 3 ML VIAL SUBCUT SCH ×3 (08:01→17:02)
[2018-08-08] MEDS: METOPROLOL SUCCINATE 50 MG TAB.SR.24H PO SCH (08:01)
[2018-08-08] MEDS: INSULIN LISPRO 100 UNIT/ML 3 ML VIAL SUBCUT PRN ×4 (08:02→22:33)
[2018-08-08] MEDS: INSULIN GLARGINE,HUM.REC.ANLOG 1,000 UNIT/10 ML UNIT SUBCUT SCH (08:02)
[2018-08-08] MEDS: AMLODIPINE BESYLATE 5 MG TABLET PO SCH ×2 (09:23→22:32)
[2018-08-08] MEDS: DULOXETINE HCL 30 MG CAPSULE.DR PO SCH ×2 (09:23→22:32)
--- NOTE | 2018-08-08 11:10 | PDOC PROGRESS REPORT ---
Subjective Progress Note for:: 08/08/18 Subjective:: Patient is currently doing much better Patient is denied any chest pain to than any shortness of the breath Denied any abdominal pain Patient's blood pressure is on the higher end increase the Norvasc 5 mg twice a day Discussed with the son on the bedside regarding the patient's current conditions Reason For Visit: ASTHMATIC BRONCHITIS,LARYNGITIS,HYPERTENSION,TYPE Physical Exam Vital Signs: Temp Pulse Resp BP Pulse Ox 97.5 F 53 L 14 189/82 H 99 08/08/18 08:08 08/08/18 08:08 08/08/18 08:08 08/08/18 08:08 08/08/18 08:08 Intake & Output 08/07/18 08/08/18 08/09/18 06:59 06:59 06:59 Intake Total 1275 711 Output Total 650 Balance 1275 61 Weight 157.9 kg 158.6 kg General appearance: PRESENT: no acute distress, well-developed, well-nourished Head exam: PRESENT: atraumatic, normocephalic Eye exam: PRESENT: conjunctiva pink, EOMI, PERRLA. ABSENT: scleral icterus Ear exam: PRESENT: normal external ear exam Mouth exam: PRESENT: moist, tongue midline Neck exam: PRESENT: full ROM. ABSENT: carotid bruit, JVD, lymphadenopathy, thyromegaly Respiratory exam: PRESENT: clear to auscultation carter Cardiovascular exam: PRESENT: RRR. ABSENT: diastolic murmur, rubs, systolic murmur Pulses: PRESENT: normal dorsalis pedis pul, +2 pedal pulses bilateral Vascular exam: PRESENT: normal capillary refill GI/Abdominal exam: PRESENT: normal bowel sounds, soft. ABSENT: distended, guarding, mass, organolmegaly, rebound, tenderness Rectal exam: PRESENT: deferred Extremities exam: ABSENT: pedal edema Neurological exam: PRESENT: alert, awake, oriented to person, oriented to place, oriented to time, oriented to situation, CN II-XII grossly intact. ABSENT: motor sensory deficit Psychiatric exam: PRESENT: appropriate affect, normal mood. ABSENT: homicidal ideation, suicidal ideation Skin exam: PRESENT: dry, intact, warm. ABSENT: cyanosis, rash Results Laboratory Results: 08/08/18 03:41 08/08/18 05:35 08/08/18 08/08/18 08/08/18 03:41 03:41 05:35 WBC 10.3 RBC 3.90 Hgb 11.3 L Hct 34.7 L MCV 89 MCH 29.1 MCHC 32.7 RDW 16.1 H Plt Count 157 Seg Neutrophils % 78.6 H Lymphocytes % 12.2 L Monocytes % 8.9 Eosinophils % 0.0 Basophils % 0.3 Absolute Neutrophils 8.1 Absolute Lymphocytes 1.3 Absolute Monocytes 0.9 Absolute Eosinophils 0.0 Absolute Basophils 0.0 Sodium Cancelled 141.6 Potassium Cancelled 4.4 Chloride Cancelled 105 Carbon Dioxide Cancelled 33 H Anion Gap Cancelled 4 L BUN Cancelled 61 H Creatinine Cancelled 1.70 H Est GFR ( Amer) Cancelled 35 L Est GFR (Non-Af Amer) Cancelled 29 L Glucose Cancelled 185 H Calcium Cancelled 8.5 08/04/18 08/04/18 08/04/18 14:22 14:22 19:19 Creatine Kinase 626 H 618 H CK-MB (CK-2) 3.66 Troponin I < 0.012 08/04/18 08/05/18 08/05/18 19:19 01:20 01:20 Creatine Kinase 505 H CK-MB (CK-2) 3.70 3.25 Troponin I < 0.012 < 0.012 08/05/18 08/05/18 07:14 07:14 Creatine Kinase 517 H CK-MB (CK-2) 3.17 Troponin I < 0.012 Assessment & Plan - Diagnosis (1) Stridor Is this a current diagnosis for this admission?: Yes Plan: [place] all improving will decrease the IV Solu-Medrol (2) Acute asthma exacerbation Qualifiers: Asthma severity: moderate Asthma persistence: persistent Qualified Code(s): J45.41 - Moderate persistent asthma with (acute) exacerbation Is this a current diagnosis for this admission?: Yes Plan: Continues to nebulizer treatment and IV steroid (3) Hypertension Qualifiers: Hypertension type: essential hypertension Qualified Code(s): I10 - Essential (primary) hypertension Is this a current diagnosis for this admission?: Yes Plan: Added hydralazine 10 mg p.o. q. 8 (4) Laryngotracheobronchitis Is this a current diagnosis for this admission?: Yes (5) Type 2 diabetes mellitus Qualifiers: Diabetes mellitus fpc insulin use: unspecified fpc insulin use status Diabetes mellitus complication status: with unspecified complications Qualified Code(s): E11.8 - Type 2 diabetes mellitus with unspecified complications Is this a current diagnosis for this admission?: Yes Plan: Continue sliding scale - Time Time Spent with patient: 15-24 minutes Medications reviewed and adjusted accordingly: Yes Anticipated discharge: Other Within: Other - Plan Summary Plan Summary: Patients need a physical therapy evaluations discussed with the son regarding the patient's current conditions
[2018-08-08] MEDS ORDERED: HYDRALAZINE HCL INJ/PF 20 MG/1 ML SDV IV ONE (12:00)
[2018-08-08] MEDS: IPRATROPIUM/ALBUTEROL 0.5-2.5 MG/3 ML AMPUL NEB PRN (12:20)
[2018-08-08] MEDS ORDERED: HYDRALAZINE HCL 10 MG TABLET PO SCH (14:00)
[2018-08-08] MEDS: HYDRALAZINE HCL 25 MG TABLET PO SCH (22:31)
[2018-08-08] MEDS: ATORVASTATIN CALCIUM 20 MG TABLET PO SCH (22:32)
[2018-08-08] MEDS: MONTELUKAST SODIUM 10 MG TABLET PO SCH (22:32)
[2018-08-09] MEDS: HYDRALAZINE HCL INJ/PF 20 MG/1 ML SDV IV PRN ×3 (00:19→23:40)
[2018-08-09 05:15] LABS: ABSOLUTE LYMPHOCYTES (AUTO) 1.3 10^3/uL (0.5-4.7); ABSOLUTE MONOCYTES (AUTO) 1.1 10^3/uL (0.1-1.4); ABSOLUTE NEUT (AUTO) 7.4 10^3/uL (1.7-8.2); BASOPHILS % (AUTO) 0.3 % (0-2); HEMATOCRIT 35.2 % (36.0-47.0); HEMOGLOBIN 11.6 g/dL (12.0-15.5); LYMPHOCYTES % (AUTO) 12.9 % (13-45); MEAN CORPUSCULAR HEMOGLOBIN 29.1 pg (27.0-33.4); MEAN CORPUSCULAR HGB CONC 32.8 g/dL (32.0-36.0); MEAN CORPUSCULAR VOLUME 89 fl (80-97); MONOCYTES % (AUTO) 11.4 % (3-13); PLATELET COUNT 169 10^3/uL (150-450); RED BLOOD COUNT 3.97 10^6/uL (3.72-5.28); RED CELL DISTRIBUTION WIDTH 15.9 % (11.5-14.0); SEGMENTED NEUTROPHILS % (AUTO) 75.4 % (42-78); TOTAL CELLS COUNTED % (AUTO) 100 %; WHITE BLOOD COUNT 9.9 10^3/uL (4.0-10.5)
[2018-08-09] MEDS: DEXAMETHASONE SOD PHOSPHATE INJ 4 MG/1 ML VIAL IV SCH ×3 (05:36→21:40)
[2018-08-09] MEDS: PREGABALIN 75 MG CAPSULE PO SCH ×2 (05:36→17:01)
[2018-08-09 05:37] LABS: BLOOD UREA NITROGEN 58 mg/dL (7-20); CALCIUM 8.4 mg/dL (8.4-10.2); GLUCOSE 121 mg/dL (75-110); POTASSIUM 4.7 mmol/L (3.6-5.0)
[2018-08-09] MEDS: HYDRALAZINE HCL 25 MG TABLET PO SCH (05:37)
[2018-08-09] MEDS: LANSOPRAZOLE 15 MG TAB.RAP.DR PO SCH (05:37)
[2018-08-09] MEDS: LEVOTHYROXINE SODIUM 0.15 MG TABLET PO SCH (05:37)
[2018-08-09 05:43] LABS: CARBON DIOXIDE 34 mmol/L (22-30); CHLORIDE 106 mmol/L (98-107); SODIUM 142.2 mmol/L (137-145)
[2018-08-09 05:47] LABS: ANION GAP 2 (5-19)
[2018-08-09] MEDS: METOPROLOL SUCCINATE 50 MG TAB.SR.24H PO SCH (08:27)
[2018-08-09] MEDS: INSULIN GLARGINE,HUM.REC.ANLOG 1,000 UNIT/10 ML UNIT SUBCUT SCH (08:28)
[2018-08-09] MEDS: INSULIN LISPRO 100 UNIT/ML 3 ML VIAL SUBCUT SCH ×3 (08:28→17:00)
[2018-08-09] MEDS: SITAGLIPTIN PHOSPHATE 50 MG TABLET PO SCH (08:28)
[2018-08-09] MEDS: DULOXETINE HCL 30 MG CAPSULE.DR PO SCH ×2 (09:53→21:40)
[2018-08-09] MEDS: AMLODIPINE BESYLATE 5 MG TABLET PO SCH ×2 (09:53→21:40)
[2018-08-09] MEDS: IPRATROPIUM/ALBUTEROL 0.5-2.5 MG/3 ML AMPUL NEB PRN (10:02)
--- NOTE | 2018-08-09 11:13 | PDOC PROGRESS REPORT ---
Subjective Progress Note for:: 08/09/18 Reason For Visit: ASTHMATIC BRONCHITIS,LARYNGITIS,HYPERTENSION,TYPE Physical Exam Vital Signs: Temp Pulse Resp BP Pulse Ox 97.9 F 67 16 185/68 H 98 08/09/18 08:00 08/09/18 10:02 08/09/18 10:02 08/09/18 08:00 08/09/18 10:02 Intake & Output 08/08/18 08/09/18 08/10/18 06:59 06:59 06:59 Intake Total 711 1361 Output Total 650 200 Balance 61 1161 Weight 158.6 kg 154.4 kg General appearance: PRESENT: no acute distress, well-developed, well-nourished Head exam: PRESENT: atraumatic, normocephalic Eye exam: PRESENT: conjunctiva pink, EOMI, PERRLA. ABSENT: scleral icterus Ear exam: PRESENT: normal external ear exam Mouth exam: PRESENT: moist, tongue midline Neck exam: PRESENT: full ROM. ABSENT: carotid bruit, JVD, lymphadenopathy, thyromegaly Respiratory exam: PRESENT: clear to auscultation carter Cardiovascular exam: PRESENT: RRR. ABSENT: diastolic murmur, rubs, systolic murmur Pulses: PRESENT: normal dorsalis pedis pul, +2 pedal pulses bilateral Vascular exam: PRESENT: normal capillary refill GI/Abdominal exam: PRESENT: normal bowel sounds, soft. ABSENT: distended, guarding, mass, organolmegaly, rebound, tenderness Rectal exam: PRESENT: deferred Extremities exam: ABSENT: pedal edema Neurological exam: PRESENT: alert, awake, oriented to person, oriented to place, oriented to time, oriented to situation, CN II-XII grossly intact. ABSENT: motor sensory deficit Psychiatric exam: PRESENT: appropriate affect, normal mood. ABSENT: homicidal ideation, suicidal ideation Skin exam: PRESENT: dry, intact, warm. ABSENT: cyanosis, rash Results Laboratory Results: 08/09/18 04:50 08/09/18 04:50 08/08/18 08/09/18 08/09/18 01:45 04:50 04:50 WBC 9.9 RBC 3.97 Hgb 11.6 L Hct 35.2 L MCV 89 MCH 29.1 MCHC 32.8 RDW 15.9 H Plt Count 169 Seg Neutrophils % 75.4 Lymphocytes % 12.9 L Monocytes % 11.4 Eosinophils % 0.0 Basophils % 0.3 Absolute Neutrophils 7.4 Absolute Lymphocytes 1.3 Absolute Monocytes 1.1 Absolute Eosinophils 0.0 Absolute Basophils 0.0 Sodium 142.2 Potassium 4.7 Chloride 106 Carbon Dioxide 34 H Anion Gap 2 L BUN 58 H Creatinine 1.51 H Est GFR ( Amer) 41 L Est GFR (Non-Af Amer) 34 L Glucose 121 H Calcium 8.4 Stool Occult Blood POSITIVE 08/04/18 08/04/18 08/04/18 14:22 14:22 19:19 Creatine Kinase 626 H 618 H CK-MB (CK-2) 3.66 Troponin I < 0.012 08/04/18 08/05/18 08/05/18 19:19 01:20 01:20 Creatine Kinase 505 H CK-MB (CK-2) 3.70 3.25 Troponin I < 0.012 < 0.012 08/05/18 08/05/18 07:14 07:14 Creatine Kinase 517 H CK-MB (CK-2) 3.17 Troponin I < 0.012 Assessment & Plan - Diagnosis (1) Stridor Is this a current diagnosis for this admission?: Yes Plan: [place] all improving will decrease the IV Solu-Medrol (2) Acute asthma exacerbation Qualifiers: Asthma severity: moderate Asthma persistence: persistent Qualified Code(s): J45.41 - Moderate persistent asthma with (acute) exacerbation Is this a current diagnosis for this admission?: Yes Plan: Continues to nebulizer treatment and IV steroid (3) Hypertension Qualifiers: Hypertension type: essential hypertension Qualified Code(s): I10 - Essential (primary) hypertension Is this a current diagnosis for this admission?: Yes Plan: Added hydralazine 10 mg p.o. q. 8 (4) Laryngotracheobronchitis Is this a current diagnosis for this admission?: Yes (5) Type 2 diabetes mellitus Qualifiers: Diabetes mellitus skilled nursing insulin use: unspecified skilled nursing insulin use status Diabetes mellitus complication status: with unspecified complications Qualified Code(s): E11.8 - Type 2 diabetes mellitus with unspecified complications Is this a current diagnosis for this admission?: Yes Plan: Continue sliding scale - Time Time Spent with patient: 15-24 minutes Medications reviewed and adjusted accordingly: Yes Anticipated discharge: Other Within: Other - Plan Summary Plan Summary: Increase the hydralazine 50 mg p.o. every 8 repeat the chest x-ray
[2018-08-09] MEDS: INSULIN LISPRO 100 UNIT/ML 3 ML VIAL SUBCUT PRN (11:59)
--- NOTE | 2018-08-09 13:33 | RADIOLOGY REPORT (SQ) ---
EXAM DESCRIPTION: CHEST SINGLE VIEW COMPLETED DATE/TIME: 08/09/2018 1:19 pm REASON FOR STUDY: copd COMPARISON: 08/07/2018. EXAM PARAMETERS: NUMBER OF VIEWS: One view. TECHNIQUE: Single frontal radiographic view of the chest acquired. RADIATION DOSE: NA LIMITATIONS: None. FINDINGS: LUNGS AND PLEURA: No opacities, masses or pneumothorax. No pleural effusion. MEDIASTINUM AND HILAR STRUCTURES: No masses. Contour normal. HEART AND VASCULAR STRUCTURES: Heart normal in size. Normal vasculature. BONES: No acute findings. HARDWARE: None in the chest. OTHER: No other significant finding. IMPRESSION: NO ACUTE RADIOGRAPHIC FINDING IN THE CHEST. TECHNICAL DOCUMENTATION: JOB ID: [id number] [employer]- All Rights Reserved Reading location - IP/workstation name: [email or web address]
[2018-08-09] MEDS ORDERED: HYDRALAZINE HCL 25 MG TABLET PO SCH (14:00)
[2018-08-09] MEDS: HYDRALAZINE HCL 50 MG TABLET PO SCH ×2 (14:31→21:39)
[2018-08-09] MEDS: ATORVASTATIN CALCIUM 20 MG TABLET PO SCH (21:40)
[2018-08-09] MEDS: MONTELUKAST SODIUM 10 MG TABLET PO SCH (21:40)
[2018-08-10] MEDS: HYDRALAZINE HCL INJ/PF 20 MG/1 ML SDV IV PRN ×2 (05:03→23:20)
[2018-08-10 05:28] LABS: ANION GAP 5 (5-19); BLOOD UREA NITROGEN 66 mg/dL (7-20); CALCIUM 8.4 mg/dL (8.4-10.2); CARBON DIOXIDE 32 mmol/L (22-30); CHLORIDE 105 mmol/L (98-107); GLUCOSE 135 mg/dL (75-110); POTASSIUM 4.8 mmol/L (3.6-5.0); SODIUM 141.7 mmol/L (137-145)
[2018-08-10] MEDS: LEVOTHYROXINE SODIUM 0.15 MG TABLET PO SCH (05:52)
[2018-08-10] MEDS: LANSOPRAZOLE 15 MG TAB.RAP.DR PO SCH (05:52)
[2018-08-10] MEDS: PREGABALIN 75 MG CAPSULE PO SCH ×2 (05:52→17:09)
[2018-08-10] MEDS: DEXAMETHASONE SOD PHOSPHATE INJ 4 MG/1 ML VIAL IV SCH ×2 (05:52→21:44)
[2018-08-10] MEDS ORDERED: HYDRALAZINE HCL 50 MG TABLET PO SCH (06:00)
[2018-08-10] MEDS: AMLODIPINE BESYLATE 5 MG TABLET PO SCH ×2 (09:28→21:45)
[2018-08-10] MEDS: METOPROLOL SUCCINATE 50 MG TAB.SR.24H PO SCH (09:28)
[2018-08-10] MEDS: DULOXETINE HCL 30 MG CAPSULE.DR PO SCH ×2 (09:29→21:45)
[2018-08-10] MEDS: INSULIN GLARGINE,HUM.REC.ANLOG 1,000 UNIT/10 ML UNIT SUBCUT SCH (09:29)
[2018-08-10] MEDS: SITAGLIPTIN PHOSPHATE 50 MG TABLET PO SCH (09:29)
[2018-08-10] MEDS: INSULIN LISPRO 100 UNIT/ML 3 ML VIAL SUBCUT SCH ×3 (09:30→17:08)
--- NOTE | 2018-08-10 11:31 | PDOC PROGRESS REPORT ---
Subjective Progress Note for:: 08/10/18 Reason For Visit: ASTHMATIC BRONCHITIS,LARYNGITIS,HYPERTENSION,TYPE Patient is currently doing fair Patient is denied any chest pain denied any shortness of the breath Patient's blood pressure is still elevated Denies any headache Physical Exam Vital Signs: Temp Pulse Resp BP Pulse Ox 97.4 F 61 20 191/66 H 93 08/10/18 07:28 08/10/18 07:28 08/10/18 07:28 08/10/18 07:28 08/10/18 07:28 Intake & Output 08/09/18 08/10/18 08/11/18 06:59 06:59 06:59 Intake Total 1361 840 Output Total 200 501 Balance 1161 339 Weight 154.4 kg 154.1 kg General appearance: PRESENT: no acute distress, well-developed, well-nourished Head exam: PRESENT: atraumatic, normocephalic Eye exam: PRESENT: conjunctiva pink, EOMI, PERRLA. ABSENT: scleral icterus Ear exam: PRESENT: normal external ear exam Mouth exam: PRESENT: moist, tongue midline Neck exam: PRESENT: full ROM. ABSENT: carotid bruit, JVD, lymphadenopathy, thyromegaly Respiratory exam: PRESENT: clear to auscultation carter Cardiovascular exam: PRESENT: RRR. ABSENT: diastolic murmur, rubs, systolic murmur Pulses: PRESENT: normal dorsalis pedis pul, +2 pedal pulses bilateral Vascular exam: PRESENT: normal capillary refill GI/Abdominal exam: PRESENT: normal bowel sounds, soft. ABSENT: distended, guarding, mass, organolmegaly, rebound, tenderness Rectal exam: PRESENT: deferred Extremities exam: ABSENT: pedal edema Musculoskeletal exam: PRESENT: ambulatory Neurological exam: PRESENT: alert, awake, oriented to person, oriented to place, oriented to time, oriented to situation, CN II-XII grossly intact. ABSENT: motor sensory deficit Psychiatric exam: PRESENT: appropriate affect, normal mood. ABSENT: homicidal ideation, suicidal ideation Skin exam: PRESENT: dry, intact, warm. ABSENT: cyanosis, rash Results Laboratory Results: 08/09/18 04:50 08/10/18 03:46 08/10/18 03:46 Sodium 141.7 Potassium 4.8 Chloride 105 Carbon Dioxide 32 H Anion Gap 5 BUN 66 H Creatinine 1.43 H Est GFR ( Amer) 43 L Est GFR (Non-Af Amer) 36 L Glucose 135 H Calcium 8.4 08/04/18 15:10 Blood Blood Culture - Final NO GROWTH IN 5 DAYS 08/04/18 14:22 Blood Blood Culture - Final NO GROWTH IN 5 DAYS 08/04/18 08/04/18 08/04/18 14:22 14:22 19:19 Creatine Kinase 626 H 618 H CK-MB (CK-2) 3.66 Troponin I < 0.012 08/04/18 08/05/18 08/05/18 19:19 01:20 01:20 Creatine Kinase 505 H CK-MB (CK-2) 3.70 3.25 Troponin I < 0.012 < 0.012 08/05/18 08/05/18 07:14 07:14 Creatine Kinase 517 H CK-MB (CK-2) 3.17 Troponin I < 0.012 Impressions: Chest X-Ray 08/09/18 00:00 IMPRESSION: NO ACUTE RADIOGRAPHIC FINDING IN THE CHEST. Assessment & Plan - Diagnosis (1) Stridor Is this a current diagnosis for this admission?: Yes Plan: [place] all improving will decrease the IV Solu-Medrol (2) Acute asthma exacerbation Qualifiers: Asthma severity: moderate Asthma persistence: persistent Qualified Code(s): J45.41 - Moderate persistent asthma with (acute) exacerbation Is this a current diagnosis for this admission?: Yes Plan: Continues to nebulizer treatment and IV steroid (3) Hypertension Qualifiers: Hypertension type: essential hypertension Qualified Code(s): I10 - Essential (primary) hypertension Is this a current diagnosis for this admission?: Yes Plan: Increase the hydralazine 100 mg p.o. 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
[2018-08-10] MEDS: IPRATROPIUM/ALBUTEROL 0.5-2.5 MG/3 ML AMPUL NEB PRN (11:37)
[2018-08-10] MEDS: FUROSEMIDE 20 MG TABLET PO SCH ×2 (14:26→17:09)
[2018-08-10] MEDS: HYDRALAZINE HCL 50 MG TABLET PO SCH ×2 (14:30→21:45)
[2018-08-10] MEDS: INSULIN LISPRO 100 UNIT/ML 3 ML VIAL SUBCUT PRN (17:10)
[2018-08-10] MEDS: ATORVASTATIN CALCIUM 20 MG TABLET PO SCH (21:44)
[2018-08-10] MEDS: MONTELUKAST SODIUM 10 MG TABLET PO SCH (21:44)
[2018-08-11] MEDS: HYDRALAZINE HCL 50 MG TABLET PO SCH ×3 (05:44→21:38)
[2018-08-11] MEDS: LANSOPRAZOLE 15 MG TAB.RAP.DR PO SCH (05:45)
[2018-08-11] MEDS: PREGABALIN 75 MG CAPSULE PO SCH ×2 (05:45→17:41)
[2018-08-11] MEDS: FUROSEMIDE 20 MG TABLET PO SCH ×2 (05:45→17:41)
[2018-08-11] MEDS: LEVOTHYROXINE SODIUM 0.15 MG TABLET PO SCH (05:45)
[2018-08-11 05:51] LABS: BLOOD UREA NITROGEN 71 mg/dL (7-20); CALCIUM 8.4 mg/dL (8.4-10.2); GLUCOSE 174 mg/dL (75-110)
[2018-08-11 05:57] LABS: CARBON DIOXIDE 32 mmol/L (22-30); CHLORIDE 106 mmol/L (98-107); SODIUM 141.6 mmol/L (137-145)
[2018-08-11 06:01] LABS: POTASSIUM 4.8 mmol/L (3.6-5.0)
[2018-08-11 06:02] LABS: ANION GAP 4 (5-19)
[2018-08-11] MEDS: METOPROLOL SUCCINATE 50 MG TAB.SR.24H PO SCH (08:38)
[2018-08-11] MEDS: SITAGLIPTIN PHOSPHATE 50 MG TABLET PO SCH (08:38)
[2018-08-11] MEDS: INSULIN GLARGINE,HUM.REC.ANLOG 1,000 UNIT/10 ML UNIT SUBCUT SCH (08:38)
[2018-08-11] MEDS: INSULIN LISPRO 100 UNIT/ML 3 ML VIAL SUBCUT PRN ×3 (08:39→22:06)
[2018-08-11] MEDS: INSULIN LISPRO 100 UNIT/ML 3 ML VIAL SUBCUT SCH ×3 (08:39→17:41)
[2018-08-11] MEDS: AMLODIPINE BESYLATE 5 MG TABLET PO SCH ×2 (09:33→21:37)
[2018-08-11] MEDS: DEXAMETHASONE SOD PHOSPHATE INJ 4 MG/1 ML VIAL IV SCH (09:34)
[2018-08-11] MEDS: DULOXETINE HCL 30 MG CAPSULE.DR PO SCH ×2 (09:34→21:38)
--- NOTE | 2018-08-11 20:25 | PDOC DISCHARGE SUMMARY ---
General - Admit/Disc Date/PCP Admission Date/Primary Care Provider: 08/04/18 16:40 BRAD GIVENS MD Discharge Date: 08/12/18 - Discharge Diagnosis (1) Stridor Is this a current diagnosis for this admission?: Yes (2) Laryngotracheobronchitis Is this a current diagnosis for this admission?: Yes (3) Type 2 diabetes mellitus with diabetic polyneuropathy Is this a current diagnosis for this admission?: Yes (4) Moderate persistent asthma with (acute) exacerbation Is this a current diagnosis for this admission?: Yes - Additional Information Resuscitation Status: Full Code Prescriptions: Budesonide/Formoterol Fumarate [Symbicort HFA 160-4.5 mcg Inhaler 6 gm] 2 puff IH Q12 #2 inhaler Home Medications: Amlodipine Besylate [Norvasc 5 mg Tablet] 5 mg PO QAM 08/04/18 Atorvastatin Calcium [Lipitor 20 mg Tablet] 20 mg PO QHS 08/04/18 Doxepin HCl [Silenor] 6 mg PO QHS 08/04/18 Duloxetine HCl [Cymbalta] 60 mg PO Q12 08/04/18 Insulin Aspart [Novolog Flexpen] 5 unit SUBCUT AC 08/04/18 Insulin Glargine,Hum.rec.anlog [Basaglar Kwikpen U-100] 52 unit SQ QAM 08/04/18 Levothyroxine Sodium 150 mcg PO Q6AM 08/04/18 Linagliptin [Tradjenta] 5 mg PO QAM 08/04/18 Metoprolol Succinate [Toprol Xl] 200 mg PO QAM 08/04/18 Mirabegron [Myrbetriq] 50 mg PO QAM 08/04/18 Montelukast Sodium [Singulair 10 mg Tablet] 10 mg PO QHS 08/04/18 Omeprazole Magnesium [Prilosec Otc] 20 mg PO Q6AM 08/04/18 Pregabalin [Lyrica] 150 mg PO Q12 08/04/18 Budesonide/Formoterol Fumarate [Symbicort HFA 160-4.5 mcg Inhaler 6 gm] 2 puff IH Q12 #2 inhaler 08/11/18 History of Present Illness History of Present Illness: ONDINA ENRIQUEZ is a 73 year old female,She has a history of type 2 diabetes mellitus, morbid obesity, neuropathy, chronic kidney disease stage III, persistent asthma, she came to the emergency room for evaluation of shortness of breath, there was antecedent history of flulike symptoms nasal congestion. In the emergency room she was evaluated, on auscultation she sounds like stridor that suggest upper airway obstruction, there is associated laryngitis. Hospital Course Hospital Course: Patient was admitted for the management of acute stridor felt to be due to acute laryngeal tracheobronchitis. She was treated with IV Decadron, she has a history of asthma, she ultimately transitioned to acute asthma attack Physical Exam Vital Signs: Temp Pulse Resp BP Pulse Ox 97.7 F 60 20 152/60 H 97 08/11/18 16:18 08/11/18 19:00 08/11/18 16:18 08/11/18 16:18 08/11/18 16:18 Intake & Output 08/10/18 08/11/18 08/12/18 06:59 06:59 06:59 Intake Total 840 1380 1124 Output Total 501 Balance 339 1380 1124 Weight 154.1 kg 154.5 kg General appearance: PRESENT: no acute distress Head exam: PRESENT: atraumatic, normocephalic Eye exam: PRESENT: PERRLA Ear exam: PRESENT: normal external ear exam Neck exam: PRESENT: full ROM Respiratory exam: PRESENT: clear to auscultation carter, rhonchi Cardiovascular exam: PRESENT: RRR, +S1, +S2 Vascular exam: PRESENT: normal capillary refill GI/Abdominal exam: PRESENT: soft Rectal exam: PRESENT: deferred Neurological exam: PRESENT: alert, CN II-XII grossly intact Skin exam: PRESENT: dry, intact, warm Results Laboratory Results: 08/09/18 04:50 08/11/18 04:28 08/11/18 04:28 Sodium 141.6 Potassium 4.8 Chloride 106 Carbon Dioxide 32 H Anion Gap 4 L BUN 71 H Creatinine 1.62 H Est GFR ( Amer) 37 L Est GFR (Non-Af Amer) 31 L Glucose 174 H Calcium 8.4 08/04/18 08/04/18 08/04/18 14:22 14:22 19:19 Creatine Kinase 626 H 618 H CK-MB (CK-2) 3.66 Troponin I < 0.012 08/04/18 08/05/18 08/05/18 19:19 01:20 01:20 Creatine Kinase 505 H CK-MB (CK-2) 3.70 3.25 Troponin I < 0.012 < 0.012 08/05/18 08/05/18 07:14 07:14 Creatine Kinase 517 H CK-MB (CK-2) 3.17 Troponin I < 0.012 Impressions: Chest X-Ray 08/09/18 00:00 IMPRESSION: NO ACUTE RADIOGRAPHIC FINDING IN THE CHEST. Qualifiers - * PATIENT BEING DISCHARGED WITH ANY OF THE FOLLOWING DIAGNOSIS: No
[2018-08-11] MEDS: ATORVASTATIN CALCIUM 20 MG TABLET PO SCH (21:37)
[2018-08-11] MEDS: MONTELUKAST SODIUM 10 MG TABLET PO SCH (21:37)
[2018-08-11] MEDS: BUDESONIDE/FORMOTEROL 160-4.5 MCG 60 PUFF/6 GM MDI IH SCH (21:38)
[2018-08-12] MEDS: HYDRALAZINE HCL 50 MG TABLET PO SCH ×2 (05:05→13:49)
[2018-08-12] MEDS: LEVOTHYROXINE SODIUM 0.15 MG TABLET PO SCH (05:05)
[2018-08-12] MEDS: FUROSEMIDE 20 MG TABLET PO SCH (05:05)
[2018-08-12] MEDS: PREGABALIN 75 MG CAPSULE PO SCH (05:05)
[2018-08-12] MEDS: LANSOPRAZOLE 15 MG TAB.RAP.DR PO SCH (05:05)
[2018-08-12 05:21] LABS: BLOOD UREA NITROGEN 75 mg/dL (7-20); CALCIUM 8.7 mg/dL (8.4-10.2); GLUCOSE 79 mg/dL (75-110); POTASSIUM 4.6 mmol/L (3.6-5.0)
[2018-08-12 05:26] LABS: CARBON DIOXIDE 34 mmol/L (22-30); CHLORIDE 105 mmol/L (98-107); SODIUM 142.2 mmol/L (137-145)
[2018-08-12 05:40] LABS: ANION GAP 3 (5-19)
[2018-08-12] MEDS: INSULIN LISPRO 100 UNIT/ML 3 ML VIAL SUBCUT SCH ×2 (08:41→12:25)
[2018-08-12] MEDS: INSULIN GLARGINE,HUM.REC.ANLOG 1,000 UNIT/10 ML UNIT SUBCUT SCH (08:48)
[2018-08-12] MEDS: SITAGLIPTIN PHOSPHATE 50 MG TABLET PO SCH (08:48)
[2018-08-12] MEDS: METOPROLOL SUCCINATE 50 MG TAB.SR.24H PO SCH (08:48)
[2018-08-12] MEDS: DULOXETINE HCL 30 MG CAPSULE.DR PO SCH (09:19)
[2018-08-12] MEDS: BUDESONIDE/FORMOTEROL 160-4.5 MCG 60 PUFF/6 GM MDI IH SCH (09:19)
[2018-08-12] MEDS: AMLODIPINE BESYLATE 5 MG TABLET PO SCH (09:19)
[2018-08-12] MEDS: INSULIN LISPRO 100 UNIT/ML 3 ML VIAL SUBCUT PRN (12:26)
[2018-08-12 14:57] VITALS: BP 170/67
== END 2018-08-12 13:53 | disposition home or self-care (01) | DRG 202 ==
LOC: ER 13:25 → EH 16:40 → 3N 19:42
PROVIDERS: ADMIT Internal Medicine; ATTEND Internal Medicine
PROC: 3E0F3GC Introduction of Other Therapeutic Substance into Respiratory Tract, Percutaneous Approach (ICD-10-PCS; principal; 2018-08-04)
DX: J40 Bronchitis, not specified as acute or chronic (principal); J45.41 Moderate persistent asthma with (acute) exacerbation; Z68.43 Body mass index [BMI] 50.0-59.9, adult; E11.22 Type 2 diabetes mellitus with diabetic chronic kidney disease; E11.40 Type 2 diabetes mellitus with diabetic neuropathy, unspecified; E66.01 Morbid (severe) obesity due to excess calories; D63.1 Anemia in chronic kidney disease; N18.3 Chronic kidney disease, stage 3 (moderate); I12.9 Hypertensive chronic kidney disease with stage 1 through stage 4 chronic kidney disease, or unspecified chronic kidney disease; E78.5 Hyperlipidemia, unspecified; E03.9 Hypothyroidism, unspecified; K21.9 Gastro-esophageal reflux disease without esophagitis; M19.90 Unspecified osteoarthritis, unspecified site; F32.9 Major depressive disorder, single episode, unspecified; Z96.653 Presence of artificial knee joint, bilateral; Z79.4 Long term (current) use of insulin
CPT/HCPCS: 36415; 71045; 80048; 80053; 80076; 80307; 81001; 82140; 82150; 82272; 82550; 82553; 82803; 82962; 83036; 83605; 83690; 83735; 84100; 84439; 84443; 84484; 85025; 85610; 85730; 87040; 87070; 87880; 93005; 93010; 94640; 96365; 96375; 99291; G8978-GP; G8979-GP; J0360; J1100; J1644; J1815; J2930; J3475; J3490; J7620

== ENCOUNTER 2018-12-17 12:22 | Inpatient (IN) | payer MEDICARE, MEDICAID ==
--- NOTE | 2018-12-17 13:18 | ER Document Report ---
ED Medical Screen (RME) - General Chief Complaint: General Weakness Stated Complaint: DIFFICULTY BREATHING Time Seen by Provider: 12/17/18 13:15 Primary Care Provider: BRAD GIVENS MD [Primary Care Provider] - Follow up as needed Mode of Arrival: Wheelchair Information source: Patient, Relative Notes: Patient presents with a one-week history of difficulty breathing. Patient reports midsternal chest pain that started yesterday. Patient with some facial swelling that her family member noticed today. Patient does have a history of almost daily falls. Patient without any fever. Patient complains of generalized swelling to extremities. Patient denies any history of CHF. I have greeted and performed a rapid initial assessment of this patient. A comp rehensive ED assessment and evaluation of the patient, analysis of test results and completion of the medical decision making process will be conducted by additional ED providers. TRAVEL OUTSIDE OF THE [place] IN LAST 30 DAYS: No - Related Data Allergies/Adverse Reactions: aspirin [Aspirin] Allergy (Verified 12/17/18 12:25) Edema, GI UPSET morphine [Morphine] Allergy (Verified 12/17/18 12:25) ANAPHYLAXSIS, Facial swelling Past Medical History - Social History Chew tobacco use (# tins/day): No Frequency of alcohol use: None Drug Abuse: None - Past Medical History Cardiac Medical History: Reports: Hx Hypercholesterolemia, Hx Hypertension Pulmonary Medical History: Reports: Hx Asthma, Hx COPD, Hx Pneumonia Neurological Medical History: Denies: Hx Cerebrovascular Accident Endocrine Medical History: Reports: Hx Diabetes Mellitus Type 2, Hx Hypothyroidism Renal/ Medical History: Reports: Hx End Stage Renal Disease. Denies: Hx Peritoneal Dialysis GI Medical History: Reports: Hx Gastroesophageal Reflux Disease, Hx Ulcer Musculoskeltal Medical History: Reports Hx Arthritis Psychiatric Medical History: Reports: Hx Depression Past Surgical History: Reports: Hx Cholecystectomy, Hx Hysterectomy, Hx Orthopedic Surgery - bilateral knee replacement. Denies: Hx Pacemaker - Immunizations Immunizations up to date: Yes Hx Diphtheria, Pertussis, Tetanus Vaccination: No History of Influenza Vaccine for 05/2017 - 10/2017 Season: Yes Influenza Administration Date for 05/2017 - 10/2017 Season: 05/10/17 Physical Exam - Vital signs Vitals: Temp Pulse Resp BP Pulse Ox 98.3 F 60 25 H 151/88 H 96 12/17/18 12:52 12/17/18 12:52 12/17/18 12:52 12/17/18 12:52 12/17/18 12:52 - General General appearance: Alert Notes: Patient with periorbital swelling, morbid obesity, respirations labored with exertion. Course - Vital Signs Vital signs: Temp Pulse Resp BP Pulse Ox 98.3 F 60 25 H 151/88 H 96 12/17/18 12:52 12/17/18 12:52 12/17/18 12:52 12/17/18 12:52 12/17/18 12:52 Doctor's Discharge - Discharge Referrals: BRAD GIVENS MD [Primary Care Provider] - Follow up as needed
--- NOTE | 2018-12-17 14:05 | RADIOLOGY REPORT (SQ) ---
EXAM DESCRIPTION: CHEST 2 VIEWS COMPLETED DATE/TIME: 12/17/2018 1:47 pm REASON FOR STUDY: diff breathing COMPARISON: None. TECHNIQUE: Frontal and lateral radiographic views of the chest acquired. NUMBER OF VIEWS: Two view. LIMITATIONS: None. FINDINGS: LUNGS AND PLEURA: No pneumothorax. Increased airspace markings in the left lung base. No significant pleural effusion. MEDIASTINUM AND HILAR STRUCTURES: Stable. HEART AND VASCULAR STRUCTURES: Stable. BONES: No acute findings. HARDWARE: None in the chest. OTHER: No other significant finding. IMPRESSION: Increased airspace markings in the left lung base. No significant pleural effusion. TECHNICAL DOCUMENTATION: JOB ID: [id number] [id number] 2010 [employer]- All Rights Reserved Reading location - IP/workstation name: [email or web address]
[2018-12-17 14:53] LABS: ABSOLUTE EOSINOPHILS # (AUTO) 0.4 10^3/uL (0.0-0.6); ABSOLUTE LYMPHOCYTES (AUTO) 1.3 10^3/uL (0.5-4.7); ABSOLUTE MONOCYTES (AUTO) 0.8 10^3/uL (0.1-1.4); ABSOLUTE NEUT (AUTO) 3.9 10^3/uL (1.7-8.2); BASOPHILS % (AUTO) 0.7 % (0-2); EOSINOPHILS % (AUTO) 6.2 % (0-6); HEMATOCRIT 33.2 % (36.0-47.0); HEMOGLOBIN 10.8 g/dL (12.0-15.5); LYMPHOCYTES % (AUTO) 19.6 % (13-45); MEAN CORPUSCULAR HEMOGLOBIN 29.2 pg (27.0-33.4); MEAN CORPUSCULAR HGB CONC 32.4 g/dL (32.0-36.0); MEAN CORPUSCULAR VOLUME 90 fl (80-97); PLATELET COUNT 191 10^3/uL (150-450); RED BLOOD COUNT 3.69 10^6/uL (3.72-5.28); SEGMENTED NEUTROPHILS % (AUTO) 61.5 % (42-78); TOTAL CELLS COUNTED % (AUTO) 100 %; WHITE BLOOD COUNT 6.4 10^3/uL (4.0-10.5)
[2018-12-17 15:15] LABS: ALANINE AMINOTRANSFERASE 24 U/L (9-52); ALBUMIN 3.2 g/dL (3.5-5.0); ALKALINE PHOSPHATASE 170 U/L (38-126); ANION GAP 6 (5-19); ASPARTATE AMINO TRANSFERASE 34 U/L (14-36); BILIRUBIN,DIRECT 0.3 mg/dL (0.0-0.4); BILIRUBIN,TOTAL 0.4 mg/dL (0.2-1.3); BLOOD UREA NITROGEN 34 mg/dL (7-20); CALCIUM 8.3 mg/dL (8.4-10.2); CARBON DIOXIDE 32 mmol/L (22-30); CHLORIDE 107 mmol/L (98-107); CREATINE KINASE 376 U/L (30-135); GLUCOSE 137 mg/dL (75-110); SODIUM 144.7 mmol/L (137-145); TOTAL PROTEIN 6.7 g/dL (6.3-8.2)
[2018-12-17] MEDS ORDERED: IPRATROPIUM/ALBUTEROL 0.5-2.5 MG/3 ML AMPUL NEB ONE (15:15)
[2018-12-17] MEDS ORDERED: CEFTRIAXONE 1 GM/D5W RTU 1 GM/50 ML RTUPB IV ONE ×2 (15:16→19:30)
[2018-12-17] MEDS ORDERED: AZITHROMYCIN INJ 500 MG VIAL IV ONE (15:16)
[2018-12-17 15:27] LABS: CREATINE KINASE MB 2.48 ng/mL (<4.55); NT PRO BNP 2040 pg/mL (<450)
[2018-12-17 15:28] LABS: TROPONIN I < 0.012 ng/mL
--- NOTE | 2018-12-17 18:49 | ER Document Report ---
ED General - General Chief Complaint: General Weakness Stated Complaint: DIFFICULTY BREATHING Time Seen by Provider: 12/17/18 13:15 Primary Care Provider: BRAD GIVENS MD [Primary Care Provider] - Follow up as needed Mode of Arrival: Wheelchair TRAVEL OUTSIDE OF THE [place] IN LAST 30 DAYS: No - HPI Notes: Patient is a 73-year-old female who presents to the emergency department for evaluation of difficulty breathing. She states is been going on for about a week. She is also started coughing. She is had some chills. She is feeling weak and has been falling frequently. She denies hitting her head or losing consciousness. She states she has had some pain in her chest, worsened by cough. Nothing seems to make it better. - Related Data Allergies/Adverse Reactions: aspirin [Aspirin] Allergy (Verified 12/17/18 12:25) Edema, GI UPSET morphine [Morphine] Allergy (Verified 12/17/18 12:25) ANAPHYLAXSIS, Facial swelling Past Medical History - General Information source: Patient, Relative - Social History Smoking Status: Never Smoker Chew tobacco use (# tins/day): No Frequency of alcohol use: None Drug Abuse: None Family History: Reviewed & Not Pertinent Patient has suicidal ideation: No Patient has homicidal ideation: No - Past Medical History Cardiac Medical History: Reports: Hx Hypercholesterolemia, Hx Hypertension Pulmonary Medical History: Reports: Hx Asthma, Hx COPD, Hx Pneumonia Neurological Medical History: Denies: Hx Cerebrovascular Accident Endocrine Medical History: Reports: Hx Diabetes Mellitus Type 2, Hx Hypothyroidism Renal/ Medical History: Reports: Hx End Stage Renal Disease. Denies: Hx Peritoneal Dialysis GI Medical History: Reports: Hx Gastroesophageal Reflux Disease, Hx Ulcer Musculoskeletal Medical History: Reports Hx Arthritis Psychiatric Medical History: Reports: Hx Depression Past Surgical History: Reports: Hx Cholecystectomy, Hx Hysterectomy, Hx Orthopedic Surgery - bilateral knee replacement. Denies: Hx Pacemaker - Immunizations Immunizations up to date: Yes Hx Diphtheria, Pertussis, Tetanus Vaccination: No Hx Pneumococcal Vaccination: 03/11/12 Review of Systems - Review of Systems Constitutional: See HPI EENT: No symptoms reported Cardiovascular: See HPI Respiratory: See HPI Gastrointestinal: No symptoms reported Genitourinary: No symptoms reported Musculoskeletal: No symptoms reported Skin: No symptoms reported Neurological/Psychological: No symptoms reported Physical Exam - Vital signs Vitals: Temp Pulse Resp BP Pulse Ox 98.3 F 60 25 H 151/88 H 96 12/17/18 12:52 12/17/18 12:52 12/17/18 12:52 12/17/18 12:52 12/17/18 12:52 - Notes Notes: Morbidly obese female, appears her stated age in no acute distress. Head is normocephalic and atraumatic. Pupils are equal and round, reactive to light. Oral mucosa is moist. Neck is supple without meningismus. Heart is regular rate and rhythm, lungs show inspiratory and expiratory wheezes throughout. Abdo men soft, nontender, normal active bowel sounds. Lower extremities healed 3+ pitting edema with chronic appearing skin changes to bilateral calves. Peripheral pulses are equal. Course - Re-evaluation Re-evalutation: 12/17/18 20:20 Patient presented to the emergency department for evaluation of a multitude of complaints. She was treated here with breathing treatment and had moderate improvement. Laboratory investigations are largely unremarkable, with exception of an elevated proBNP. I did review this patient's echocardiograms in the past. She had normal EF, largely unremarkable echo. My strong suspicion is that this BNP is elevated because of left lower lobe airspace disease consistent with pneumonia on chest x-ray. She is given Rocephin and Zithromax. Patient's curb 65 score is 2. She is morbidly obese. I do not believe she would do well as an outpatient. I spoke to Dr. Villaseñor, he will admit the patient for Dr. Givens. - Vital Signs Vital signs: Temp Pulse Resp BP Pulse Ox 98.3 F 60 14 173/85 H 100 12/17/18 12:52 12/17/18 12:52 12/17/18 19:01 12/17/18 19:01 12/17/18 19:01 - Laboratory Result Diagrams: 12/17/18 14:38 12/17/18 14:38 Laboratory results interpreted by me: 12/17/18 12/17/18 12/17/18 14:38 14:38 14:38 RBC 3.69 L Hgb 10.8 L Hct 33.2 L RDW 16.0 H Eosinophils % 6.2 H Carbon Dioxide 32 H BUN 34 H Creatinine 1.93 H Est GFR ( Amer) 31 L Est GFR (Non-Af Amer) 25 L Glucose 137 H Calcium 8.3 L Alkaline Phosphatase 170 H Creatine Kinase 376 H NT-Pro-B Natriuret Pep 2040 H Albumin 3.2 L - Diagnostic Test Radiology reviewed: Reports reviewed Radiology results interpreted by me: 12/17/18 18:47 Chest X-Ray 12/17/18 13:16 IMPRESSION: Increased airspace markings in the left lung base. No significant pleural effusion. - EKG Interpretation by Me Additional EKG results interpreted by me: 12/17/18 18:47 Sinus bradycardia with a rate of 57 bpm. Normal axis and intervals, no acute ST changes concerning for ischemia or infarction. Discharge - Discharge Clinical Impression: Acute asthma exacerbation Qualifiers: Asthma severity: mild Asthma persistence: intermittent Qualified Code(s): J45.21 - Mild intermittent asthma with (acute) exacerbation Pneumonia Qualifiers: Laterality: left Lung location: lower lobe of lung Condition: Stable Disposition: ADMITTED INPATIENT Admitting Provider: Laisha Villaseñor covering Unit Admitted: Telemetry Referrals: BRAD GIVENS MD [Primary Care Provider] - Follow up as needed
--- NOTE | 2018-12-17 22:32 | EKG REPORT ---
SEVERITY:- ABNORMAL ECG - SINUS RHYTHM ANTERIOR INFARCT, OLD : Confirmed by: Melony Clancy MD 17-Dec-2018 22:31:52
[2018-12-18] MEDS ORDERED: IPRATROPIUM/ALBUTEROL 0.5-2.5 MG/3 ML AMPUL NEB PRN (06:44)
[2018-12-18] MEDS ORDERED: DEXTROSE 40% GEL 15 GM TUBE PO PRN (07:00)
[2018-12-18] MEDS ORDERED: GLUCAGON,HUMAN RECOMB 1 MG INJ IM PRN (07:00)
[2018-12-18] MEDS ORDERED: DEXTROSE 50%-WATER SYRINGE 12.5 GM/25 ML DOSE IV PRN (07:00)
[2018-12-18] MEDS ORDERED: DEXTROSE 40% GEL 15 GM TUBE X 2 PO PRN (07:00)
[2018-12-18] MEDS ORDERED: DEXTROSE 50%-WATER SYRINGE 25 GM/50 ML DOSE IV PRN (07:00)
[2018-12-18] MEDS ORDERED: INSULIN GLARGINE,HUM.REC.ANLOG 1,000 UNIT/10 ML VIAL SUBCUT SCH (08:00)
[2018-12-18] MEDS ORDERED: (PENDING PHARMACY ID) (Mirabegron [Myrbetriq] 50 MG) PO SCH (08:00)
[2018-12-18] MEDS: INSULIN LISPRO 100 UNIT/ML 3 ML VIAL SUBCUT SCH ×4 (08:07→21:37)
[2018-12-18] MEDS: DULOXETINE HCL 30 MG CAPSULE.DR PO SCH ×2 (09:19→21:37)
[2018-12-18] MEDS: PREGABALIN 75 MG CAPSULE PO SCH ×2 (09:20→21:37)
[2018-12-18] MEDS: METOPROLOL SUCCINATE 50 MG TAB.SR.24H PO SCH (09:20)
[2018-12-18] MEDS: SITAGLIPTIN PHOSPHATE 50 MG TABLET PO SCH (09:20)
[2018-12-18] MEDS: AMLODIPINE BESYLATE 5 MG TABLET PO SCH ×2 (09:20→21:37)
[2018-12-18] MEDS: INSULIN GLARGINE,HUM.REC.ANLOG 1,000 UNIT/10 ML VIAL SUBCUT SCH (09:21)
[2018-12-18] MEDS: FLUTICASONE/VILANTEROL 200-25 MCG/DOSE IH SCH (09:21)
[2018-12-18] MEDS: AZITHROMYCIN 500 MG in DEXTROSE 5%-WATER 250 ML IV SCH (12:25)
[2018-12-18] MEDS: CEFTRIAXONE SODIUM 1,000 MG in DEXTROSE 5%-WATER 50 ML IV SCH (17:16)
[2018-12-18] MEDS ORDERED: CEFTRIAXONE 1 GM/D5W RTU 1 GM/50 ML RTUPB IV SCH (18:00)
--- NOTE | 2018-12-18 19:20 | PDOC H&P ---
History of Present Illness Admission Date/PCP: 12/17/18 20:27 BRAD GIVENS MD Patient complains of: Difficulty with breathing History of Present Illness: ONDINA ENRIQUEZ is a 73 year old female of Dr Givens who presented to the Ed with complain of worsening difficulty with breathing, minimally productive cough and chest pain with coughing over last couple of days. Patient reported associated weakness, chills, and episode fo fever prior to coming to the ED. She denied any significant nasal or sinus congestion. No headache or dizziness. she admitted to episode of falling at home. she denied cigarette smoking or alcohol abuse. Her morbidities include diabetes mellitus type 2, HTN, HLD, Asthma COPD, CKD, GERD, Hypothyroidism, Osteoarthritis, and Depression. Her initial evaluation in the ED revealed left lung base airspace disease process. she was advised hospitalization for further evaluation and management. Past Medical History Cardiac Medical History: Reports: Hyperlipidema, Hypertension Pulmonary Medical History: Reports: Asthma, Chronic Obstructive Pulmonary Disease (COPD), Pneumonia Endocrine Medical History: Reports: Diabetes Mellitus Type 2, Hypothyroidism Renal/ Medical History: Reports: End Stage Renal Disease GI Medical History: Reports: Gastroesophageal Reflux Disease Musculoskeltal Medical History: Reports: Arthritis Psychiatric Medical History: Reports: Depression Hematology: Reports: Anemia Past Surgical History Past Surgical History: Reports: Cholecystectomy, Hysterectomy, Orthopedic Surgery - bilateral knee replacement Denies: Pacemaker Social History Smoking Status: Never Smoker Frequency of Alcohol Use: None Hx Recreational Drug Use: No Drugs: None Hx Prescription Drug Abuse: No - Advance Directive Resuscitation Status: Full Code Family History Family History: Reviewed & Not Pertinent Parental Family History Reviewed: Yes Children Family History Reviewed: Yes Sibling(s) Family History Reviewed.: Yes Medication/Allergy Home Medications: Amlodipine Besylate [Norvasc 5 mg Tablet] 5 mg PO Q12 08/04/18 Atorvastatin Calcium [Lipitor 20 mg Tablet] 20 mg PO QHS 08/04/18 Duloxetine HCl [Cymbalta] 60 mg PO Q12 08/04/18 Insulin Glargine,Hum.rec.anlog [Basaglar Soledadikpen U-100] 52 unit SQ QAM 08/04/18 Levothyroxine Sodium 150 mcg PO Q6AM 08/04/18 Linagliptin [Tradjenta] 5 mg PO QAM 12/26/18 Metoprolol Succinate [Toprol Xl] 200 mg PO QAM 08/04/18 Mirabegron [Myrbetriq] 50 mg PO QAM 08/04/18 Montelukast Sodium [Singulair 10 mg Tablet] 10 mg PO QHS 08/04/18 Omeprazole Magnesium [Prilosec Otc] 20 mg PO Q6AM 08/04/18 Pregabalin [Lyrica] 150 mg PO Q12 08/04/18 Budesonide/Formoterol Fumarate [Symbicort HFA 160-4.5 mcg Inhaler 6 gm] 2 puff IH Q12 #2 inhaler 08/11/18 Allergies/Adverse Reactions: aspirin [Aspirin] Allergy (Verified 12/17/18 12:25) Edema, GI UPSET morphine [Morphine] Allergy (Verified 12/17/18 12:25) ANAPHYLAXSIS, Facial swelling Review of Systems Constitutional: PRESENT: chills, fever(s). ABSENT: as per HPI, anorexia, fatigue, headache(s), night sweats, weakness, weight gain, weight loss, other Eyes: ABSENT: visual disturbances Ears: ABSENT: hearing changes Nose, Mouth, and Throat: ABSENT: as per HPI, headache(s), mouth pain, sore throat, vertigo, other Cardiovascular: PRESENT: chest pain - with coughing. ABSENT: as per HPI, dyspnea on exertion, edema, orthropnea, palpitations, other Respiratory: PRESENT: cough, dyspnea, sputum. ABSENT: as per HPI, hemoptysis, other Gastrointestinal: ABSENT: abdominal pain, constipation, diarrhea, hematemesis, hematochezia, nausea, vomiting Genitourinary: ABSENT: dysuria, hematuria Musculoskeletal: ABSENT: joint swelling Integumentary: ABSENT: rash, wounds Neurological: ABSENT: abnormal gait, abnormal speech, confusion, dizziness, focal weakness, syncope Psychiatric: ABSENT: anxiety, depression, homidical ideation, suicidal ideation Endocrine: ABSENT: cold intolerance, heat intolerance, polydipsia, polyuria Hematologic/Lymphatic: ABSENT: easy bleeding, easy bruising, lymphadenopathy Allergic/Immunologic: ABSENT: seasonal rhinorrhea Physical Exam Vital Signs: Temp Pulse Resp BP Pulse Ox 97.9 F 65 22 H 167/78 H 92 12/18/18 15:05 12/18/18 15:05 12/18/18 15:05 12/18/18 15:05 12/18/18 15:05 Intake & Output 12/17/18 12/18/18 12/19/18 06:59 06:59 06:59 Intake Total 50 1008 Output Total 650 1200 Balance -600 -192 Weight 156.7 kg General appearance: PRESENT: mild distress - on ssupplemental oxygen via nasal cannula, morbidly obese Head exam: PRESENT: atraumatic, normocephalic Eye exam: PRESENT: conjunctiva pink, EOMI, PERRLA. ABSENT: scleral icterus Ear exam: PRESENT: normal external ear exam Mouth exam: PRESENT: moist Respiratory exam: PRESENT: clear to auscultation carter, decreased breath sounds - at lung bases Cardiovascular exam: PRESENT: RRR. ABSENT: diastolic murmur, rubs, systolic murmur Vascular exam: ABSENT: pallor GI/Abdominal exam: PRESENT: normal bowel sounds, soft. ABSENT: distended, guarding, mass, organolmegaly, rebound, tenderness Rectal exam: PRESENT: deferred Extremities exam: ABSENT: pedal edema Musculoskeletal exam: PRESENT: deformity - related to multiple joints involvement with arthritis. ABSENT: tenderness Neurological exam: PRESENT: alert, awake, oriented to person, oriented to place, oriented to time, oriented to situation, CN II-XII grossly intact. ABSENT: motor sensory deficit Psychiatric exam: PRESENT: appropriate affect, normal mood. ABSENT: homicidal ideation, suicidal ideation Skin exam: PRESENT: dry, warm, other - chronic stasis changes in the leg Results Laboratory Results: 12/17/18 14:38 12/17/18 14:38 12/17/18 12/17/18 14:38 14:38 Creatine Kinase 376 H CK-MB (CK-2) 2.48 Troponin I < 0.012 NT-Pro-B Natriuret Pep 2040 H Impressions: Chest X-Ray 12/17/18 13:16 IMPRESSION: Increased airspace markings in the left lung base. No significant pleural effusion. Assessment & Plan - Diagnosis (1) Lobar pneumonia, unspecified organism Is this a current diagnosis for this admission?: Yes Plan: See covering admitting attending physician orders for details of care plan. (2) Acute kidney injury Is this a current diagnosis for this admission?: Yes Plan: See covering admitting attending physician orders for details of care plan. (3) Diabetes mellitus type 2 in obese Is this a current diagnosis for this admission?: Yes Plan: See covering admitting attending physician orders for details of care plan. (4) Hypertension Qualifiers: Hypertension type: essential hypertension Qualified Code(s): I10 - Essential (primary) hypertension Is this a current diagnosis for this admission?: Yes Plan: See covering admitting attending physician orders for details of care plan. (5) Chronic kidney disease, stage 3 Is this a current diagnosis for this admission?: Yes Plan: See covering admitting attending physician orders for details of care plan. (6) Morbid obesity due to excess calories Is this a current diagnosis for this admission?: Yes Plan: See covering admitting attending physician orders for details of care plan. - Time Time Spent: 50 to 70 Minutes Medications reviewed and adjusted accordingly: Yes Anticipated discharge: Home with Homehealth Within: Other - Inpatient Certification Based on my medical assessment, after consideration of the patient's comorbidities, presenting symptoms, or acuity I expect that the services needed warrant INPATIENT care.: Yes I certify that my determination is in accordance with my understanding of Medicare's requirements for reasonable and necessary INPATIENT services [42 CFR 412.3e].: Yes Medical Necessity: Significant Comorbidiites Make Outpatient Treatment Too Risky, Need Close Monitoring Due to Risk of Patient Decompensation, Need For IV Fluids, Need For Continuous Telemetry Monitoring, Need for Nebulizer Therapy and Monitoring of Response, Need for IV Antibiotics, Risk of Complication if Not Cared For in Hospital, Risk of Diagnosis Which Will Require Inpatient Eval/Care/Monitoring Post Hospital Care: D/C Oncology Social Worker Documentation - Plan Summary Plan Summary: See covering admitting attending physician orders for details of care plan.
[2018-12-18] MEDS: ATORVASTATIN CALCIUM 20 MG TABLET PO SCH (21:37)
[2018-12-18] MEDS: MONTELUKAST SODIUM 10 MG TABLET PO SCH (21:37)
[2018-12-19 04:57] LABS: ABSOLUTE EOSINOPHILS # (AUTO) 0.4 10^3/uL (0.0-0.6); ABSOLUTE LYMPHOCYTES (AUTO) 3.8 10^3/uL (0.5-4.7); ABSOLUTE MONOCYTES (AUTO) 1.4 10^3/uL (0.1-1.4); ABSOLUTE NEUT (AUTO) 3.9 10^3/uL (1.7-8.2); BASOPHILS % (AUTO) 0.4 % (0-2); EOSINOPHILS % (AUTO) 4.2 % (0-6); HEMATOCRIT 30.8 % (36.0-47.0); LYMPHOCYTES % (AUTO) 40.1 % (13-45); MEAN CORPUSCULAR HEMOGLOBIN 29.2 pg (27.0-33.4); MEAN CORPUSCULAR HGB CONC 32.5 g/dL (32.0-36.0); MEAN CORPUSCULAR VOLUME 90 fl (80-97); MONOCYTES % (AUTO) 14.4 % (3-13); PLATELET COUNT 178 10^3/uL (150-450); RED BLOOD COUNT 3.42 10^6/uL (3.72-5.28); RED CELL DISTRIBUTION WIDTH 16.1 % (11.5-14.0); SEGMENTED NEUTROPHILS % (AUTO) 40.9 % (42-78); TOTAL CELLS COUNTED % (AUTO) 100 %; WHITE BLOOD COUNT 9.5 10^3/uL (4.0-10.5)
[2018-12-19] MEDS: PANTOPRAZOLE SODIUM 20 MG TABLET.DR PO SCH (05:18)
[2018-12-19] MEDS: LEVOTHYROXINE SODIUM 0.15 MG TABLET PO SCH (05:18)
[2018-12-19 05:22] LABS: ALANINE AMINOTRANSFERASE 17 U/L (9-52); ALBUMIN 2.9 g/dL (3.5-5.0); ALKALINE PHOSPHATASE 142 U/L (38-126); ANION GAP 9 (5-19); ASPARTATE AMINO TRANSFERASE 30 U/L (14-36); BILIRUBIN,DIRECT 0.3 mg/dL (0.0-0.4); BILIRUBIN,TOTAL 0.3 mg/dL (0.2-1.3); BLOOD UREA NITROGEN 36 mg/dL (7-20); CALCIUM 8.5 mg/dL (8.4-10.2); CARBON DIOXIDE 28 mmol/L (22-30); CHLORIDE 108 mmol/L (98-107); PHOSPHORUS 5.6 mg/dL (2.5-4.5); POTASSIUM 3.8 mmol/L (3.6-5.0); SODIUM 145.1 mmol/L (137-145); TOTAL PROTEIN 6.1 g/dL (6.3-8.2)
[2018-12-19 05:26] LABS: GLUCOSE 55 mg/dL (75-110)
[2018-12-19] MEDS: INSULIN LISPRO 100 UNIT/ML 3 ML VIAL SUBCUT SCH ×4 (09:22→21:55)
[2018-12-19] MEDS: AMLODIPINE BESYLATE 5 MG TABLET PO SCH ×2 (09:24→21:55)
[2018-12-19] MEDS: PREGABALIN 75 MG CAPSULE PO SCH ×2 (09:24→21:55)
[2018-12-19] MEDS: DULOXETINE HCL 30 MG CAPSULE.DR PO SCH ×2 (09:26→21:55)
[2018-12-19] MEDS: METOPROLOL SUCCINATE 50 MG TAB.SR.24H PO SCH (09:26)
[2018-12-19] MEDS: FLUTICASONE/VILANTEROL 200-25 MCG/DOSE IH SCH (09:27)
[2018-12-19] MEDS: ENOXAPARIN SODIUM INJ 30 MG/0.3 ML DISP.SYRIN SUBCUT SCH (09:27)
[2018-12-19] MEDS: SITAGLIPTIN PHOSPHATE 50 MG TABLET PO SCH (11:45)
[2018-12-19] MEDS: INSULIN GLARGINE,HUM.REC.ANLOG 1,000 UNIT/10 ML VIAL SUBCUT SCH (11:45)
[2018-12-19] MEDS: AZITHROMYCIN 500 MG in DEXTROSE 5%-WATER 250 ML IV SCH (12:01)
[2018-12-19] MEDS: CEFTRIAXONE SODIUM 1,000 MG in DEXTROSE 5%-WATER 50 ML IV SCH (17:00)
--- NOTE | 2018-12-19 18:31 | PDOC PROGRESS REPORT ---
Subjective Progress Note for:: 12/19/18 Subjective:: She denied any chest pain. Breathing is improving. No fever or chills. Her accuchek have been low today with need to hold am insulin dose probably because of change in diet while on admission. Reason For Visit: LOBAR PNEUMONIA, ACUTE ON CHRONIC KIDNEY DISEASE Physical Exam Vital Signs: Temp Pulse Resp BP Pulse Ox 98.0 F 62 21 H 178/64 H 100 12/19/18 15:19 12/19/18 15:19 12/19/18 15:19 12/19/18 15:19 12/19/18 15:19 Intake & Output 12/18/18 12/19/18 12/20/18 06:59 06:59 06:59 Intake Total 50 1248 1334 Output Total 650 1500 700 Balance -600 -252 634 Weight 156.7 kg 158.3 kg General appearance: PRESENT: no acute distress, morbidly obese Head exam: PRESENT: atraumatic, normocephalic Eye exam: PRESENT: conjunctiva pink. ABSENT: scleral icterus Ear exam: PRESENT: normal external ear exam Mouth exam: PRESENT: moist Respiratory exam: PRESENT: clear to auscultation carter, decreased breath sounds - at lung bases Cardiovascular exam: PRESENT: RRR. ABSENT: diastolic murmur, rubs, systolic murmur Vascular exam: ABSENT: pallor GI/Abdominal exam: PRESENT: normal bowel sounds, soft. ABSENT: distended, gua rding, mass, organolmegaly, rebound, tenderness Extremities exam: ABSENT: pedal edema Neurological exam: PRESENT: alert, awake, oriented to person, oriented to place, oriented to time, oriented to situation, CN II-XII grossly intact. ABSENT: motor sensory deficit Psychiatric exam: PRESENT: appropriate affect, normal mood. ABSENT: homicidal ideation, suicidal ideation Skin exam: PRESENT: dry, warm Results Laboratory Results: 12/19/18 04:40 12/19/18 04:40 12/19/18 12/19/18 04:40 04:40 WBC 9.5 RBC 3.42 L Hgb 10.0 L Hct 30.8 L MCV 90 MCH 29.2 MCHC 32.5 RDW 16.1 H Plt Count 178 Seg Neutrophils % 40.9 L Lymphocytes % 40.1 Monocytes % 14.4 H Eosinophils % 4.2 Basophils % 0.4 Absolute Neutrophils 3.9 Absolute Lymphocytes 3.8 Absolute Monocytes 1.4 Absolute Eosinophils 0.4 Absolute Basophils 0.0 Sodium 145.1 H Potassium 3.8 Chloride 108 H Carbon Dioxide 28 Anion Gap 9 BUN 36 H Creatinine 2.06 H Est GFR ( Amer) 28 L Est GFR (Non-Af Amer) 23 L Glucose 55 L Calcium 8.5 Phosphorus 5.6 H Magnesium 1.6 Total Bilirubin 0.3 AST 30 ALT 17 Alkaline Phosphatase 142 H Total Protein 6.1 L Albumin 2.9 L 12/17/18 12/17/18 14:38 14:38 Creatine Kinase 376 H CK-MB (CK-2) 2.48 Troponin I < 0.012 NT-Pro-B Natriuret Pep 2040 H Impressions: Chest X-Ray 12/17/18 13:16 IMPRESSION: Increased airspace markings in the left lung base. No significant pleural effusion. Assessment & Plan - Diagnosis (1) Lobar pneumonia, unspecified organism Is this a current diagnosis for this admission?: Yes (2) Acute kidney injury Is this a current diagnosis for this admission?: Yes (3) Diabetes mellitus type 2 in obese Is this a current diagnosis for this admission?: Yes (4) Hypertension Qualifiers: Hypertension type: essential hypertension Qualified Code(s): I10 - Essential (primary) hypertension Is this a current diagnosis for this admission?: Yes (5) Chronic kidney disease, stage 3 Is this a current diagnosis for this admission?: Yes (6) Morbid obesity due to excess calories Is this a current diagnosis for this admission?: Yes - Time Time Spent with patient: 25-34 minutes Medications reviewed and adjusted accordingly: Yes Anticipated discharge: Home with Homehealth Within: Other - Inpatient Certification Based on my medical assessment, after consideration of the patient's comorbidities, presenting symptoms, or acuity I expect that the services needed warrant INPATIENT care.: Yes I certify that my determination is in accordance with my understanding of Medicare's requirements for reasonable and necessary INPATIENT services [42 CFR 412.3e].: Yes Medical Necessity: Significant Comorbidiites Make Outpatient Treatment Too Risky, Need Close Monitoring Due to Risk of Patient Decompensation, Need For Continuous Telemetry Monitoring, Need for IV Antibiotics, Risk of Complication if Not Cared For in Hospital, Risk of Diagnosis Which Will Require Inpatient Eval/Care/Monitoring Post Hospital 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 Monitor response to her diabetes management.
[2018-12-19] MEDS: ATORVASTATIN CALCIUM 20 MG TABLET PO SCH (21:55)
[2018-12-19] MEDS: MONTELUKAST SODIUM 10 MG TABLET PO SCH (21:55)
[2018-12-20] MEDS: LEVOTHYROXINE SODIUM 0.15 MG TABLET PO SCH (05:14)
[2018-12-20] MEDS: PANTOPRAZOLE SODIUM 20 MG TABLET.DR PO SCH (05:14)
[2018-12-20] MEDS: INSULIN LISPRO 100 UNIT/ML 3 ML VIAL SUBCUT SCH ×4 (09:02→21:54)
[2018-12-20] MEDS: SITAGLIPTIN PHOSPHATE 50 MG TABLET PO SCH (09:09)
[2018-12-20] MEDS: PREGABALIN 75 MG CAPSULE PO SCH ×2 (09:10→21:56)
[2018-12-20] MEDS: DULOXETINE HCL 30 MG CAPSULE.DR PO SCH ×2 (09:10→21:56)
[2018-12-20] MEDS: METOPROLOL SUCCINATE 50 MG TAB.SR.24H PO SCH (09:10)
[2018-12-20] MEDS: AMLODIPINE BESYLATE 5 MG TABLET PO SCH ×2 (09:10→21:56)
[2018-12-20] MEDS: INSULIN GLARGINE,HUM.REC.ANLOG 1,000 UNIT/10 ML VIAL SUBCUT SCH (09:10)
[2018-12-20] MEDS: ENOXAPARIN SODIUM INJ 30 MG/0.3 ML DISP.SYRIN SUBCUT SCH (09:10)
[2018-12-20] MEDS: FLUTICASONE/VILANTEROL 200-25 MCG/DOSE IH SCH (09:11)
[2018-12-20] MEDS: AZITHROMYCIN 500 MG in DEXTROSE 5%-WATER 250 ML IV SCH (13:55)
--- NOTE | 2018-12-20 16:33 | PDOC PROGRESS REPORT ---
Subjective Progress Note for:: 12/20/18 Subjective:: Patient was admitted over the weekend when she presented with left lower lobe pneumonia, she seen by the bedside, Reason For Visit: LOBAR PNEUMONIA, ACUTE ON CHRONIC KIDNEY DISEASE Physical Exam Vital Signs: Temp Pulse Resp BP Pulse Ox 97.5 F 60 20 189/68 H 98 12/20/18 11:28 12/20/18 14:00 12/20/18 11:28 12/20/18 11:28 12/20/18 11:28 Intake & Output 12/19/18 12/20/18 12/21/18 06:59 06:59 06:59 Intake Total 1248 1724 360 Output Total 1500 1000 700 Balance -252 724 -340 Weight 158.3 kg 161.5 kg General appearance: PRESENT: no acute distress Head exam: PRESENT: atraumatic, normocephalic Eye exam: PRESENT: PERRLA Ear exam: PRESENT: normal external ear exam Mouth exam: PRESENT: moist, tongue midline Neck exam: PRESENT: full ROM Respiratory exam: PRESENT: rales, rhonchi Cardiovascular exam: PRESENT: +S1, +S2 Pulses: PRESENT: normal dorsalis pedis pul, +2 pedal pulses bilateral Vascular exam: PRESENT: normal capillary refill GI/Abdominal exam: PRESENT: soft Rectal exam: PRESENT: deferred Neurological exam: PRESENT: alert Psychiatric exam: PRESENT: appropriate affect, normal mood. ABSENT: homicidal ideation, suicidal ideation Skin exam: PRESENT: dry, intact, warm Results Laboratory Results: 12/19/18 04:40 12/19/18 04:40 12/17/18 12/17/18 14:38 14:38 Creatine Kinase 376 H CK-MB (CK-2) 2.48 Troponin I < 0.012 NT-Pro-B Natriuret Pep 2040 H Impressions: Chest X-Ray 12/17/18 13:16 IMPRESSION: Increased airspace markings in the left lung base. No significant pleural effusion. Assessment & Plan - Diagnosis (1) Lobar pneumonia, unspecified organism Is this a current diagnosis for this admission?: Yes Plan: Continue IV antibiotic, CAT scan of the chest without contrast,ordered (2) Chronic kidney disease, stage 3 Is this a current diagnosis for this admission?: Yes
[2018-12-20] MEDS: CEFTRIAXONE SODIUM 1,000 MG in DEXTROSE 5%-WATER 50 ML IV SCH (17:53)
[2018-12-20] MEDS: ACETAMINOPHEN 325 MG TABLET PO PRN (20:49)
[2018-12-20] MEDS: ATORVASTATIN CALCIUM 20 MG TABLET PO SCH (21:56)
[2018-12-20] MEDS: MONTELUKAST SODIUM 10 MG TABLET PO SCH (21:56)
--- NOTE | 2018-12-21 00:02 | RADIOLOGY REPORT (SQ) ---
EXAM DESCRIPTION: CT CHEST WITHOUT IV CONTRAST COMPLETED DATE/TME: 12/20/2018 00:00 CLINICAL HISTORY: 73 years Female pneumonia COMPARISON: 03/04/2018. TECHNIQUE: Contiguous axial images obtained through the chest without IV contrast. Reformatted images obtained. This exam was performed according to our department optimization program which includes automated exposure control, adjustment of the mA and/or kv according to patient size and/or use of iterative reconstruction technique. FINDINGS: Atelectasis and a small amount of fluid in both lung bases. There are multiple areas of alveolar infiltrate bilaterally with indistinct margins. Differential considerations would include infection including atypical infection such as invasive aspergillosis, carcinoma such as FIDEL, lymphoma or foci of hemorrhage. Sarcoidosis could have a similar appearance but given absence of findings on previous studies is considered less likely. The blayne appear prominent suggesting adenopathy. This is poorly evaluated without use contrast. There are enlarged mediastinal lymph nodes. Coronary artery calcifications. Calcifications in the thoracic aorta. Absent gallbladder. IMPRESSION: Ovoid areas of infiltrative density bilaterally in conjunction with mediastinal and hilar adenopathy and small effusions. Findings may reflect multifocal pneumonia. Atypical infection including invasive aspergillosis should be considered. Additional ideology such as bronchiole alveolar cell carcinoma or lymphoma, hemorrhage or sarcoid could also have this appearance.
[2018-12-21] MEDS: PANTOPRAZOLE SODIUM 20 MG TABLET.DR PO SCH (05:29)
[2018-12-21] MEDS: LEVOTHYROXINE SODIUM 0.15 MG TABLET PO SCH (05:29)
[2018-12-21 08:58] LABS: ARTERIAL BLOOD BASE EXCESS 4.5 mmol/L; ARTERIAL BLOOD H2CO3 1.74 mmol/L (1.05-1.35); ARTERIAL BLOOD HCO3 31.3 mmol/L (20-24); ARTERIAL BLOOD O2 SATURATION 96.3 % (94-98); ARTERIAL BLOOD PCO2 57.7 mmHg (35-45); ARTERIAL BLOOD PH 7.35 (7.35-7.45); ARTERIAL BLOOD PO2 89.7 mmHg (80-100); ARTERIAL BLOOD TOTAL CO2 33.1 mmol/L (21-25)
[2018-12-21 09:00] LABS: ARTERIAL BLOOD FIO2 2.5L
[2018-12-21] MEDS: AMLODIPINE BESYLATE 5 MG TABLET PO SCH ×2 (09:12→21:44)
[2018-12-21] MEDS: INSULIN GLARGINE,HUM.REC.ANLOG 1,000 UNIT/10 ML VIAL SUBCUT SCH (09:12)
[2018-12-21] MEDS: SITAGLIPTIN PHOSPHATE 50 MG TABLET PO SCH (09:13)
[2018-12-21] MEDS: DULOXETINE HCL 30 MG CAPSULE.DR PO SCH ×2 (09:13→21:45)
[2018-12-21] MEDS: PREGABALIN 75 MG CAPSULE PO SCH ×2 (09:13→21:44)
[2018-12-21] MEDS: METOPROLOL SUCCINATE 50 MG TAB.SR.24H PO SCH (09:13)
[2018-12-21] MEDS: INSULIN LISPRO 100 UNIT/ML 3 ML VIAL SUBCUT SCH ×4 (09:13→21:41)
[2018-12-21] MEDS: ENOXAPARIN SODIUM INJ 30 MG/0.3 ML DISP.SYRIN SUBCUT SCH (09:14)
[2018-12-21] MEDS: FLUTICASONE/VILANTEROL 200-25 MCG/DOSE IH SCH (10:00)
[2018-12-21] MEDS: AZITHROMYCIN 250 MG TABLET PO SCH (13:22)
--- NOTE | 2018-12-21 13:36 | PDOC CONSULTATION ---
Consultation Consult Date: 12/21/18 Attending physician:: BRAD GIVENS Provider Consulted: LUPIS BACON Consult reason:: Possible Bronch, PNA History of Present Illness Admission Date/PCP: 12/17/18 20:27 BRAD GIVENS MD History of Present Illness: ONDINA ENRIQUEZ is a 73 year old female admitted Sunday 12/17 with pneumonia. Patient states she had a increase in her wheezing and a history of asthma and this is why she came to the ER. Patient states she feels like a bus is sitting on her chest and this is a frequent occurrence. Patient denies history of adult smoking within the home as a child she has no personal history of smoking although she did have a that smoked. 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 The patient states she does have a history of sleep apnea but she is not currently utilizing her machine due to insurance issues, she reports getting up 4-5 times a night to use the restroom restless sleep and snoring. Patient states she wakes up short of breath during the night. Patient does have an aspirin and morphine allergy. Patient states she has had a 20 pound weight increase over the last year with no change in diet or exercise at this time. There are no pets in the home and she has traveled out of state to [place] within the last 12 months. Patient states that she has a cough with yellow sputum. CT scan shows ovoid areas of infiltrate density bilaterally in conjunction with mediastinal and hilar adenopathy and small effusions. Endings may reflect multifocal pneumonia atypical infection including invasive aspergillosis should be considered. Patient is a possible bronchoscopy candidate and this is why I was consulted. Past Medical History Cardiac Medical History: Reports: Hyperlipidema, Hypertension Pulmonary Medical History: Reports: Asthma, Chronic Obstructive Pulmonary Disease (COPD), Pneumonia Endocrine Medical History: Reports: Diabetes Mellitus Type 2, Hypothyroidism Renal/ Medical History: Reports: End Stage Renal Disease GI Medical History: Reports: Gastroesophageal Reflux Disease Musculoskeltal Medical History: Reports: Arthritis Psychiatric Medical History: Reports: Depression Hematology: Reports: Anemia Past Surgical History Past Surgical History: Reports: Cholecystectomy, Hysterectomy, Orthopedic Surgery - bilateral knee replacement Denies: Pacemaker Social History Smoking Status: Never Smoker Passive smoke exposure as: Adult Frequency of Alcohol Use: None Hx Recreational Drug Use: No Drugs: None Hx Prescription Drug Abuse: No Do you have pets?: No Have you had any respiratory illnesses as a child?: Yes - asthma Have you travelled outside of [place] in the past 12 months?: Yes - [place], [place] - [place] Directive Resuscitation Status: Full Code Family History Family History: Reviewed & Not Pertinent Parental Family History Reviewed: Yes Children Family History Reviewed: No Sibling(s) Family History Reviewed.: No Medication/Allergy Home Medications: Amlodipine Besylate [Norvasc 5 mg Tablet] 5 mg PO Q12 08/04/18 Atorvastatin Calcium [Lipitor 20 mg Tablet] 20 mg PO QHS 08/04/18 Duloxetine HCl [Cymbalta] 60 mg PO Q12 08/04/18 Insulin Glargine,Hum.rec.anlog [Basaglar Kwikpen U-100] 52 unit SQ QAM 08/04/18 Levothyroxine Sodium 150 mcg PO Q6AM 08/04/18 Linagliptin [Tradjenta] 5 mg PO QAM 08/04/18 Metoprolol Succinate [Toprol Xl] 200 mg PO QAM 08/04/18 Mirabegron [Myrbetriq] 50 mg PO QAM 08/04/18 Montelukast Sodium [Singulair 10 mg Tablet] 10 mg PO QHS 08/04/18 Omeprazole Magnesium [Prilosec Otc] 20 mg PO Q6AM 08/04/18 Pregabalin [Lyrica] 150 mg PO Q12 08/04/18 Budesonide/Formoterol Fumarate [Symbicort HFA 160-4.5 mcg Inhaler 6 gm] 2 puff IH Q12 #2 inhaler 08/11/18 Allergies/Adverse Reactions: aspirin [Aspirin] Allergy (Verified 12/17/18 12:25) Edema, GI UPSET morphine [Morphine] Allergy (Verified 12/17/18 12:25) ANAPHYLAXSIS, Facial swelling Review of Systems Constitutional: PRESENT: night sweats, weakness Eyes: ABSENT: visual disturbances Ears: ABSENT: hearing changes Nose, Mouth, and Throat: ABSENT: mouth pain, sore throat Cardiovascular: PRESENT: dyspnea on exertion. ABSENT: chest pain Respiratory: PRESENT: dyspnea, sputum. ABSENT: hemoptysis Gastrointestinal: PRESENT: diarrhea. ABSENT: bloating, coffee ground emesis Genitourinary: ABSENT: difficulty urinating, hematuria Musculoskeletal: ABSENT: deformity, joint swelling Integumentary: ABSENT: rash, wounds Neurological: ABSENT: confusion, convulsions, numbness Psychiatric: ABSENT: homidical ideation, suicidal ideation Endocrine: ABSENT: flushing, heat intolerance Hematologic/Lymphatic: ABSENT: easy bruising Allergic/Immunologic: ABSENT: seasonal rhinorrhea Physical Exam Vital Signs: Temp Pulse Resp BP Pulse Ox 97.3 F 67 18 168/89 H 93 12/21/18 03:27 12/21/18 07:00 12/21/18 03:27 12/21/18 03:27 12/21/18 03:27 Intake & Output 12/20/18 12/21/18 12/22/18 06:59 06:59 06:59 Intake Total 1724 1260 Output Total 1000 2500 Balance 724 -1240 Weight 161.5 kg 158.7 kg General appearance: PRESENT: no acute distress, morbidly obese Head exam: PRESENT: atraumatic, normocephalic Eye exam: PRESENT: conjunctiva pink, EOMI. ABSENT: scleral icterus Ear exam: PRESENT: normal external ear exam Mouth exam: PRESENT: moist, neck supple, tongue midline Cardiovascular exam: PRESENT: RRR. ABSENT: diastolic murmur, systolic murmur GI/Abdominal exam: PRESENT: soft. ABSENT: distended Rectal exam: PRESENT: deferred Gentrourinary exam: PRESENT: other - wick catheter Extremities exam: ABSENT: calf tenderness, clubbing, pedal edema Neurological exam: PRESENT: awake, oriented to person, oriented to place, oriented to situation Psychiatric exam: PRESENT: normal mood. ABSENT: homicidal ideation, manic Skin exam: PRESENT: dry, intact, warm Results Laboratory Results: 12/19/18 04:40 12/19/18 04:40 12/21/18 08:50 Carbonic Acid 1.74 H HCO3/H2CO3 Ratio 17:1 ABG pH 7.35 ABG pCO2 57.7 H ABG pO2 89.7 ABG HCO3 31.3 H ABG O2 Saturation 96.3 ABG Base Excess 4.5 FiO2 2.5L 12/17/18 12/17/18 14:38 14:38 Creatine Kinase 376 H CK-MB (CK-2) 2.48 Troponin I < 0.012 NT-Pro-B Natriuret Pep 2040 H Impressions: Chest X-Ray 12/17/18 13:16 IMPRESSION: Increased airspace markings in the left lung base. No significant pleural effusion. Chest CT 12/20/18 00:00 IMPRESSION: Ovoid areas of infiltrative density bilaterally in conjunction with mediastinal and hilar adenopathy and small effusions. Findings may reflect multifocal pneumonia. Atypical infection including invasive aspergillosis should be considered. Additional ideology such as bronchiole alveolar cell carcinoma or lymphoma, hemorrhage or sarcoid could also have this appearance. Assessment & Plan - Diagnosis (1) Pneumonia Qualifiers: Laterality: left Lung location: lower lobe of lung Plan: Will discuss possible bronchoscopy with patient , 12/23/2018 pending imaging, Will order serum calcium, aspergillosis titer, begin incentive spirometry at this time. (2) Chronic kidney disease, stage 3 Is this a current diagnosis for this admission?: Yes Plan: Per nephrology (3) Morbid obesity Plan: Dietitian consult (4) Daytime somnolence Is this a current diagnosis for this admission?: Yes Plan: Put patient on BIPAP 07/15 for excessive daytime somnolence (5) Abnormal chest CT Is this a current diagnosis for this admission?: Yes Plan: Will order PPD placement at this time as patient denies having one previously Inpatient Scribe Statement - . Entered by Tami Tom, acting as scribe for .
[2018-12-21] MEDS: ACETAMINOPHEN 325 MG TABLET PO PRN ×2 (14:57→23:52)
[2018-12-21] MEDS ORDERED: TUBERCULIN,PURIF.PROT.DERIV. 5 TU/0.1 ML TEST 1 ML VIAL ID ONE (15:09)
[2018-12-21] MEDS: CEFTRIAXONE SODIUM 1,000 MG in DEXTROSE 5%-WATER 50 ML IV SCH (17:58)
--- NOTE | 2018-12-21 21:01 | PDOC PROGRESS REPORT ---
Subjective Progress Note for:: 12/21/18 Subjective:: Patient seen by the bedside, she was seen today by pulmonary. The CT chest that was done demonstrated diffuse, Multiple areas of alveolar infiltrates Reason For Visit: LOBAR PNEUMONIA, ACUTE ON CHRONIC KIDNEY DISEASE Physical Exam Vital Signs: Temp Pulse Resp BP Pulse Ox 97.9 F 60 14 170/86 H 99 12/21/18 19:39 12/21/18 20:13 12/21/18 19:39 12/21/18 19:39 12/21/18 19:39 Intake & Output 12/20/18 12/21/18 12/22/18 06:59 06:59 06:59 Intake Total 1724 1260 1694 Output Total 1000 2500 2600 Balance 724 1240 -906 Weight 161.5 kg 158.7 kg General appearance: PRESENT: mild distress Eye exam: PRESENT: PERRLA Respiratory exam: PRESENT: rhonchi Cardiovascular exam: PRESENT: +S1, +S2 GI/Abdominal exam: PRESENT: soft Neurological exam: PRESENT: alert Results Laboratory Results: 12/19/18 04:40 12/19/18 04:40 12/21/18 12/21/18 08:50 16:30 Carbonic Acid 1.74 H HCO3/H2CO3 Ratio 17:1 ABG pH 7.35 ABG pCO2 57.7 H ABG pO2 89.7 ABG HCO3 31.3 H ABG O2 Saturation 96.3 ABG Base Excess 4.5 FiO2 2.5L Calcium 8.9 12/17/18 12/17/18 14:38 14:38 Creatine Kinase 376 H CK-MB (CK-2) 2.48 Troponin I < 0.012 NT-Pro-B Natriuret Pep 2040 H Impressions: Chest X-Ray 12/17/18 13:16 IMPRESSION: Increased airspace markings in the left lung base. No significant pleural effusion. Chest CT 12/20/18 00:00 IMPRESSION: Ovoid areas of infiltrative density bilaterally in conjunction with mediastinal and hilar adenopathy and small effusions. Findings may reflect multifocal pneumonia. Atypical infection including invasive aspergillosis should be considered. Additional ideology such as bronchiole alveolar cell carcinoma or lymphoma, hemorrhage or sarcoid could also have this appearance. Assessment & Plan - Diagnosis (1) Lobar pneumonia, unspecified organism Is this a current diagnosis for this admission?: Yes (2) Chronic kidney disease, stage 3 Is this a current diagnosis for this admission?: Yes (3) Respiratory acidosis Is this a current diagnosis for this admission?: Yes Plan: Patient with respiratory acidosis the ABG demonstrated respiratory acidosis, will initiate BiPAP support
[2018-12-21] MEDS: ATORVASTATIN CALCIUM 20 MG TABLET PO SCH (21:44)
[2018-12-21] MEDS: MONTELUKAST SODIUM 10 MG TABLET PO SCH (21:44)
[2018-12-22] MEDS: PANTOPRAZOLE SODIUM 20 MG TABLET.DR PO SCH (05:12)
[2018-12-22] MEDS: LEVOTHYROXINE SODIUM 0.15 MG TABLET PO SCH (05:12)
[2018-12-22] MEDS: INSULIN LISPRO 100 UNIT/ML 3 ML VIAL SUBCUT SCH ×4 (09:29→21:36)
[2018-12-22] MEDS: SITAGLIPTIN PHOSPHATE 50 MG TABLET PO SCH (09:30)
[2018-12-22] MEDS: METOPROLOL SUCCINATE 50 MG TAB.SR.24H PO SCH (09:36)
[2018-12-22] MEDS: DULOXETINE HCL 30 MG CAPSULE.DR PO SCH ×2 (09:36→21:40)
[2018-12-22] MEDS: PREGABALIN 75 MG CAPSULE PO SCH ×2 (09:36→21:40)
[2018-12-22] MEDS: AMLODIPINE BESYLATE 5 MG TABLET PO SCH ×2 (09:37→21:40)
[2018-12-22] MEDS: INSULIN GLARGINE,HUM.REC.ANLOG 1,000 UNIT/10 ML VIAL SUBCUT SCH (09:37)
[2018-12-22] MEDS: FLUTICASONE/VILANTEROL 200-25 MCG/DOSE IH SCH (09:38)
[2018-12-22] MEDS: ENOXAPARIN SODIUM INJ 30 MG/0.3 ML DISP.SYRIN SUBCUT SCH (09:40)
[2018-12-22] MEDS ORDERED: DEXTROSE 5%-WATER 1000 ML 1,000 ML IV PRN (14:23)
[2018-12-22] MEDS: AZITHROMYCIN 250 MG TABLET PO SCH (15:36)
--- NOTE | 2018-12-22 16:34 | PDOC PROGRESS REPORT ---
Subjective Progress Note for:: 12/22/18 Subjective:: Patient was seen by the bedside, she has persistent hypoglycemia Reason For Visit: LOBAR PNEUMONIA, ACUTE ON CHRONIC KIDNEY DISEASE Physical Exam Vital Signs: Temp Pulse Resp BP Pulse Ox 97.8 F 63 20 150/93 H 94 12/22/18 12:00 12/22/18 14:00 12/22/18 12:00 12/22/18 12:00 12/22/18 12:00 Intake & Output 12/21/18 12/22/18 12/23/18 06:59 06:59 06:59 Intake Total 1260 1694 595 Output Total 2500 3400 850 Balance -1240 -1706 -255 Weight 158.7 kg 159.4 kg General appearance: PRESENT: no acute distress Eye exam: PRESENT: PERRLA Respiratory exam: PRESENT: rhonchi Cardiovascular exam: PRESENT: +S1, +S2 GI/Abdominal exam: PRESENT: soft Neurological exam: PRESENT: alert, CN II-XII grossly intact Results Laboratory Results: 12/19/18 04:40 12/19/18 04:40 12/21/18 16:30 Calcium 8.9 12/17/18 12/17/18 14:38 14:38 Creatine Kinase 376 H CK-MB (CK-2) 2.48 Troponin I < 0.012 NT-Pro-B Natriuret Pep 2040 H Impressions: Chest X-Ray 12/17/18 13:16 IMPRESSION: Increased airspace markings in the left lung base. No significant pleural effusion. Chest CT 12/20/18 00:00 IMPRESSION: Ovoid areas of infiltrative density bilaterally in conjunction with mediastinal and hilar adenopathy and small effusions. Findings may reflect multifocal pneumonia. Atypical infection including invasive aspergillosis should be considered. Additional ideology such as bronchiole alveolar cell carcinoma or lymphoma, hemorrhage or sarcoid could also have this appearance. Assessment & Plan - Diagnosis (1) Lobar pneumonia, unspecified organism Is this a current diagnosis for this admission?: Yes (2) Chronic kidney disease, stage 3 Is this a current diagnosis for this admission?: Yes (3) Respiratory acidosis Is this a current diagnosis for this admission?: Yes (4) Hypoglycemia Is this a current diagnosis for this admission?: Yes Plan: Start 5% dextrose at 10 cc/h
[2018-12-22 17:09] LABS: ABSOLUTE EOSINOPHILS # (AUTO) 0.2 10^3/uL (0.0-0.6); ABSOLUTE LYMPHOCYTES (AUTO) 1.4 10^3/uL (0.5-4.7); ABSOLUTE NEUT (AUTO) 4.2 10^3/uL (1.7-8.2); BASOPHILS % (AUTO) 0.6 % (0-2); EOSINOPHILS % (AUTO) 3.5 % (0-6); HEMATOCRIT 29.4 % (36.0-47.0); HEMOGLOBIN 9.6 g/dL (12.0-15.5); MEAN CORPUSCULAR HEMOGLOBIN 29.5 pg (27.0-33.4); MEAN CORPUSCULAR HGB CONC 32.7 g/dL (32.0-36.0); MEAN CORPUSCULAR VOLUME 90 fl (80-97); PLATELET COUNT 154 10^3/uL (150-450); RED BLOOD COUNT 3.25 10^6/uL (3.72-5.28); RED CELL DISTRIBUTION WIDTH 15.8 % (11.5-14.0); SEGMENTED NEUTROPHILS % (AUTO) 61.9 % (42-78); TOTAL CELLS COUNTED % (AUTO) 100 %; WHITE BLOOD COUNT 6.8 10^3/uL (4.0-10.5)
[2018-12-22 17:27] LABS: ALANINE AMINOTRANSFERASE 33 U/L (9-52); ALBUMIN 2.6 g/dL (3.5-5.0); ALKALINE PHOSPHATASE 158 U/L (38-126); ANION GAP 6 (5-19); ASPARTATE AMINO TRANSFERASE 53 U/L (14-36); BILIRUBIN,DIRECT 0.3 mg/dL (0.0-0.4); BILIRUBIN,TOTAL 0.3 mg/dL (0.2-1.3); BLOOD UREA NITROGEN 33 mg/dL (7-20); CALCIUM 8.5 mg/dL (8.4-10.2); CARBON DIOXIDE 29 mmol/L (22-30); CHLORIDE 104 mmol/L (98-107); GLUCOSE 134 mg/dL (75-110); POTASSIUM 4.4 mmol/L (3.6-5.0); SODIUM 139.3 mmol/L (137-145); TOTAL PROTEIN 5.6 g/dL (6.3-8.2)
[2018-12-22] MEDS: CEFTRIAXONE SODIUM 1,000 MG in DEXTROSE 5%-WATER 50 ML IV SCH (17:40)
[2018-12-22] MEDS: ACETAMINOPHEN 325 MG TABLET PO PRN (21:39)
[2018-12-22] MEDS: MONTELUKAST SODIUM 10 MG TABLET PO SCH (21:40)
[2018-12-22] MEDS: ATORVASTATIN CALCIUM 20 MG TABLET PO SCH (21:40)
[2018-12-23] MEDS: PANTOPRAZOLE SODIUM 20 MG TABLET.DR PO SCH (05:28)
[2018-12-23] MEDS: LEVOTHYROXINE SODIUM 0.15 MG TABLET PO SCH (05:28)
[2018-12-23 05:33] LABS: ABSOLUTE EOSINOPHILS # (AUTO) 0.4 10^3/uL (0.0-0.6); ABSOLUTE LYMPHOCYTES (AUTO) 1.3 10^3/uL (0.5-4.7); ABSOLUTE NEUT (AUTO) 3.7 10^3/uL (1.7-8.2); BASOPHILS % (AUTO) 0.6 % (0-2); EOSINOPHILS % (AUTO) 6.4 % (0-6); HEMATOCRIT 27.3 % (36.0-47.0); LYMPHOCYTES % (AUTO) 20.7 % (13-45); MEAN CORPUSCULAR HEMOGLOBIN 29.7 pg (27.0-33.4); MEAN CORPUSCULAR HGB CONC 33.1 g/dL (32.0-36.0); MEAN CORPUSCULAR VOLUME 90 fl (80-97); PLATELET COUNT 143 10^3/uL (150-450); RED BLOOD COUNT 3.04 10^6/uL (3.72-5.28); RED CELL DISTRIBUTION WIDTH 15.3 % (11.5-14.0); SEGMENTED NEUTROPHILS % (AUTO) 57.3 % (42-78); TOTAL CELLS COUNTED % (AUTO) 100 %; WHITE BLOOD COUNT 6.4 10^3/uL (4.0-10.5)
[2018-12-23] MEDS: INSULIN LISPRO 100 UNIT/ML 3 ML VIAL SUBCUT SCH ×4 (09:44→22:00)
[2018-12-23] MEDS: INSULIN GLARGINE,HUM.REC.ANLOG 1,000 UNIT/10 ML VIAL SUBCUT SCH (09:44)
[2018-12-23] MEDS: FLUTICASONE/VILANTEROL 200-25 MCG/DOSE IH SCH (09:46)
[2018-12-23] MEDS: ENOXAPARIN SODIUM INJ 30 MG/0.3 ML DISP.SYRIN SUBCUT SCH (09:46)
[2018-12-23] MEDS: PREGABALIN 75 MG CAPSULE PO SCH ×2 (09:47→22:05)
[2018-12-23] MEDS: AMLODIPINE BESYLATE 5 MG TABLET PO SCH ×2 (09:47→22:04)
[2018-12-23] MEDS: DULOXETINE HCL 30 MG CAPSULE.DR PO SCH ×2 (09:48→22:05)
[2018-12-23] MEDS: METOPROLOL SUCCINATE 50 MG TAB.SR.24H PO SCH (09:48)
[2018-12-23] MEDS: AZITHROMYCIN 250 MG TABLET PO SCH (13:46)
[2018-12-23] MEDS: CEFTRIAXONE SODIUM 1,000 MG in DEXTROSE 5%-WATER 50 ML IV SCH (18:06)
[2018-12-23] MEDS ORDERED: FUROSEMIDE INJ/PF 40 MG/4 ML SDV IV ONE (21:23)
--- NOTE | 2018-12-23 21:26 | PDOC PROGRESS REPORT ---
Subjective Progress Note for:: 12/23/18 Subjective:: Patient seen by the bedside, no new complaints Reason For Visit: LOBAR PNEUMONIA, ACUTE ON CHRONIC KIDNEY DISEASE Physical Exam Vital Signs: Temp Pulse Resp BP Pulse Ox 98.8 F 66 20 184/62 H 91 L 12/23/18 19:23 12/23/18 19:23 12/23/18 19:23 12/23/18 19:23 12/23/18 19:23 Intake & Output 12/22/18 12/23/18 12/24/18 06:59 06:59 06:59 Intake Total 1694 1347 1050 Output Total 3400 2200 1200 Balance -7366 -853 -150 Weight 159.4 kg 160.6 kg General appearance: PRESENT: no acute distress Eye exam: PRESENT: PERRLA Respiratory exam: PRESENT: rhonchi Cardiovascular exam: PRESENT: +S1, +S2 GI/Abdominal exam: PRESENT: soft Neurological exam: PRESENT: alert Results Laboratory Results: 12/23/18 04:48 12/22/18 16:56 12/23/18 04:48 WBC 6.4 RBC 3.04 L Hgb 9.0 L Hct 27.3 L MCV 90 MCH 29.7 MCHC 33.1 RDW 15.3 H Plt Count 143 L Seg Neutrophils % 57.3 Lymphocytes % 20.7 Monocytes % 15.0 H Eosinophils % 6.4 H Basophils % 0.6 Absolute Neutrophils 3.7 Absolute Lymphocytes 1.3 Absolute Monocytes 1.0 Absolute Eosinophils 0.4 Absolute Basophils 0.0 12/17/18 20:00 Blood Blood Culture - Final NO GROWTH IN 5 DAYS 12/17/18 19:25 Blood Blood Culture - Final NO GROWTH IN 5 DAYS 12/17/18 12/17/18 14:38 14:38 Creatine Kinase 376 H CK-MB (CK-2) 2.48 Troponin I < 0.012 NT-Pro-B Natriuret Pep 2040 H Impressions: Chest X-Ray 12/17/18 13:16 IMPRESSION: Increased airspace markings in the left lung base. No significant pleural effusion. Chest CT 12/20/18 00:00 IMPRESSION: Ovoid areas of infiltrative density bilaterally in conjunction with mediastinal and hilar adenopathy and small effusions. Findings may reflect multifocal pneumonia. Atypical infection including invasive aspergillosis should be considered. Additional ideology such as bronchiole alveolar cell carcinoma or lymphoma, hemorrhage or sarcoid could also have this appearance. Assessment & Plan - Diagnosis (1) Lobar pneumonia, unspecified organism Is this a current diagnosis for this admission?: Yes Plan: Continue IV antibiotic. (2) Chronic kidney disease, stage 3 Is this a current diagnosis for this admission?: Yes (3) Respiratory acidosis Is this a current diagnosis for this admission?: Yes (4) Hypoglycemia Is this a current diagnosis for this admission?: Yes
[2018-12-23] MEDS: ATORVASTATIN CALCIUM 20 MG TABLET PO SCH (22:04)
[2018-12-23] MEDS: MONTELUKAST SODIUM 10 MG TABLET PO SCH (22:05)
[2018-12-23 22:39] LABS: ALANINE AMINOTRANSFERASE 38 U/L (9-52); ALBUMIN 2.7 g/dL (3.5-5.0); ALKALINE PHOSPHATASE 171 U/L (38-126); ANION GAP 8 (5-19); ASPARTATE AMINO TRANSFERASE 54 U/L (14-36); BILIRUBIN,DIRECT 0.3 mg/dL (0.0-0.4); BILIRUBIN,TOTAL 0.3 mg/dL (0.2-1.3); BLOOD UREA NITROGEN 36 mg/dL (7-20); CALCIUM 8.6 mg/dL (8.4-10.2); CARBON DIOXIDE 29 mmol/L (22-30); CHLORIDE 102 mmol/L (98-107); GLUCOSE 169 mg/dL (75-110); POTASSIUM 4.6 mmol/L (3.6-5.0); TOTAL PROTEIN 5.9 g/dL (6.3-8.2)
[2018-12-24] MEDS: LEVOTHYROXINE SODIUM 0.15 MG TABLET PO SCH (05:42)
[2018-12-24] MEDS: PANTOPRAZOLE SODIUM 20 MG TABLET.DR PO SCH (05:42)
[2018-12-24] MEDS: INSULIN LISPRO 100 UNIT/ML 3 ML VIAL SUBCUT SCH ×4 (09:41→21:23)
[2018-12-24] MEDS: INSULIN GLARGINE,HUM.REC.ANLOG 1,000 UNIT/10 ML VIAL SUBCUT SCH (09:48)
[2018-12-24] MEDS: ENOXAPARIN SODIUM INJ 30 MG/0.3 ML DISP.SYRIN SUBCUT SCH (09:49)
[2018-12-24] MEDS: AMLODIPINE BESYLATE 5 MG TABLET PO SCH ×2 (09:52→21:26)
[2018-12-24] MEDS: DULOXETINE HCL 30 MG CAPSULE.DR PO SCH ×2 (09:52→21:25)
[2018-12-24] MEDS: METOPROLOL SUCCINATE 50 MG TAB.SR.24H PO SCH (09:52)
[2018-12-24] MEDS: PREGABALIN 75 MG CAPSULE PO SCH ×2 (09:52→21:25)
[2018-12-24] MEDS: FLUTICASONE/VILANTEROL 200-25 MCG/DOSE IH SCH (09:53)
--- NOTE | 2018-12-24 11:43 | PDOC PROGRESS REPORT ---
Subjective Progress Note for:: 12/24/18 Subjective:: Patient asleep upon arrival without CPAP on adjusted mask to fit more comfortably Reason For Visit: LOBAR PNEUMONIA, ACUTE ON CHRONIC KIDNEY DISEASE Physical Exam Vital Signs: Temp Pulse Resp BP Pulse Ox 98.6 F 65 20 167/74 H 96 12/24/18 07:05 12/24/18 07:05 12/24/18 07:05 12/24/18 07:05 12/24/18 07:05 Intake & Output 12/23/18 12/24/18 12/25/18 06:59 06:59 06:59 Intake Total 1347 1050 Output Total 2200 3600 Balance -853 -2550 Weight 160.6 kg 158.5 kg General appearance: PRESENT: cooperative, obese Head exam: PRESENT: atraumatic, normocephalic Eye exam: PRESENT: conjunctiva pink, EOMI, PERRLA. ABSENT: scleral icterus Ear exam: PRESENT: normal external ear exam Mouth exam: PRESENT: moist, tongue midline Neck exam: ABSENT: carotid bruit, JVD, lymphadenopathy, thyromegaly Respiratory exam: PRESENT: rhonchi - Scattered bilateral rhonchi. ABSENT: rales, wheezes Cardiovascular exam: PRESENT: RRR. ABSENT: diastolic murmur, rubs, systolic murmur Pulses: PRESENT: normal dorsalis pedis pul Vascular exam: PRESENT: normal capillary refill GI/Abdominal exam: PRESENT: normal bowel sounds, soft. ABSENT: distended, guarding, mass, organolmegaly, rebound, tenderness Rectal exam: PRESENT: deferred Extremities exam: PRESENT: full ROM. ABSENT: calf tenderness, clubbing, pedal edema Neurological exam: PRESENT: alert, awake, oriented to person, oriented to place, oriented to time, oriented to situation, CN II-XII grossly intact. ABSENT: motor sensory deficit Psychiatric exam: PRESENT: appropriate affect, normal mood. ABSENT: homicidal ideation, suicidal ideation Skin exam: PRESENT: dry, intact, warm. ABSENT: cyanosis, rash Results Laboratory Results: 12/23/18 04:48 12/23/18 22:11 12/23/18 22:11 Sodium 139.0 Potassium 4.6 Chloride 102 Carbon Dioxide 29 Anion Gap 8 BUN 36 H Creatinine 1.80 H Est GFR ( Amer) 33 L Est GFR (Non-Af Amer) 27 L Glucose 169 H Calcium 8.6 Total Bilirubin 0.3 AST 54 H ALT 38 Alkaline Phosphatase 171 H Total Protein 5.9 L Albumin 2.7 L 12/17/18 12/17/18 14:38 14:38 Creatine Kinase 376 H CK-MB (CK-2) 2.48 Troponin I < 0.012 NT-Pro-B Natriuret Pep 2040 H Impressions: Chest X-Ray 12/17/18 13:16 IMPRESSION: Increased airspace markings in the left lung base. No significant pleural effusion. Chest CT 12/20/18 00:00 IMPRESSION: Ovoid areas of infiltrative density bilaterally in conjunction with mediastinal and hilar adenopathy and small effusions. Findings may reflect multifocal pneumonia. Atypical infection including invasive aspergillosis should be considered. Additional ideology such as bronchiole alveolar cell carcinoma or lymphoma, hemorrhage or sarcoid could also have this appearance. Assessment & Plan - Diagnosis (1) Pneumonia Qualifiers: Laterality: left Lung location: lower lobe of lung Is this a current diagnosis for this admission?: Yes Plan: Waiting for pneumonia to clear for outpatient bronchoscopy (2) Chronic kidney disease, stage 3 Is this a current diagnosis for this admission?: Yes Plan: Per nephrology (3) Morbid obesity Is this a current diagnosis for this admission?: Yes Plan: Dietitian consult (4) Daytime somnolence Is this a current diagnosis for this admission?: Yes Plan: Patient to use CPAP at bedside (5) Abnormal chest CT Is this a current diagnosis for this admission?: Yes Plan: Discussed doing outpatient bronchoscopy will follow in office Inpatient Scribe Statement - . Entered by Tami Tom, acting as scribe for .
[2018-12-24] MEDS: AZITHROMYCIN 250 MG TABLET PO SCH (14:36)
--- NOTE | 2018-12-24 14:53 | RADIOLOGY REPORT (SQ) ---
EXAM DESCRIPTION: CHEST 2 VIEWS COMPLETED DATE/TIME: 12/24/2018 2:34 pm REASON FOR STUDY: pna COMPARISON: 12/17/2018 EXAM PARAMETERS: NUMBER OF VIEWS: two views TECHNIQUE: Digital Frontal and Lateral radiographic views of the chest acquired. RADIATION DOSE: NA LIMITATIONS: none FINDINGS: LUNGS AND PLEURA: There is increased opacification the left mid lung laterally and in the right suprahilar region. MEDIASTINUM AND HILAR STRUCTURES: No masses or contour abnormalities. HEART AND VASCULAR STRUCTURES: Cardiomegaly. No caleb pulmonary edema. BONES: No acute findings. HARDWARE: None in the chest. OTHER: No other significant finding. IMPRESSION: Cardiomegaly without pulmonary edema. Cannot exclude airspace disease in either upper l obe. TECHNICAL DOCUMENTATION: JOB ID: [id number] [employer]- All Rights Reserved Reading location - IP/workstation name: [email or web address]
[2018-12-24] MEDS: CEFTRIAXONE SODIUM 1,000 MG in DEXTROSE 5%-WATER 50 ML IV SCH (17:13)
[2018-12-24] MEDS: ATORVASTATIN CALCIUM 20 MG TABLET PO SCH (21:25)
[2018-12-24] MEDS: MONTELUKAST SODIUM 10 MG TABLET PO SCH (21:25)
--- NOTE | 2018-12-24 21:44 | PDOC PROGRESS REPORT ---
Subjective Progress Note for:: 12/24/18 Subjective:: Patient was seen by the bedside, she was seen by pulmonary, there is no plan for inpatient bronchoscopy. Reason For Visit: LOBAR PNEUMONIA, ACUTE ON CHRONIC KIDNEY DISEASE Physical Exam Vital Signs: Temp Pulse Resp BP Pulse Ox 99.1 F 64 18 174/90 H 95 12/24/18 14:57 12/24/18 19:00 12/24/18 14:57 12/24/18 14:57 12/24/18 14:57 Intake & Output 12/23/18 12/24/18 12/25/18 06:59 06:59 06:59 Intake Total 1347 1050 1500 Output Total 2200 3600 1500 Balance -853 -2550 0 Weight 160.6 kg 158.5 kg 158.5 kg General appearance: PRESENT: no acute distress Eye exam: PRESENT: PERRLA Respiratory exam: PRESENT: rhonchi Cardiovascular exam: PRESENT: +S1, +S2 GI/Abdominal exam: PRESENT: soft Neurological exam: PRESENT: alert Results Laboratory Results: 12/23/18 04:48 12/23/18 22:11 12/23/18 22:11 Sodium 139.0 Potassium 4.6 Chloride 102 Carbon Dioxide 29 Anion Gap 8 BUN 36 H Creatinine 1.80 H Est GFR ( Amer) 33 L Est GFR (Non-Af Amer) 27 L Glucose 169 H Calcium 8.6 Total Bilirubin 0.3 AST 54 H ALT 38 Alkaline Phosphatase 171 H Total Protein 5.9 L Albumin 2.7 L 12/17/18 12/17/18 14:38 14:38 Creatine Kinase 376 H CK-MB (CK-2) 2.48 Troponin I < 0.012 NT-Pro-B Natriuret Pep 2040 H Impressions: Chest CT 12/20/18 00:00 IMPRESSION: Ovoid areas of infiltrative density bilaterally in conjunction with mediastinal and hilar adenopathy and small effusions. Findings may reflect multifocal pneumonia. Atypical infection including invasive aspergillosis should be considered. Additional ideology such as bronchiole alveolar cell carcinoma or lymphoma, hemorrhage or sarcoid could also have this appearance. Chest X-Ray 12/24/18 00:00 IMPRESSION: Cardiomegaly without pulmonary edema. Cannot exclude airspace disease in either upper lobe. Assessment & Plan - Diagnosis (1) Lobar pneumonia, unspecified organism Is this a current diagnosis for this admission?: Yes (2) Chronic kidney disease, stage 3 Is this a current diagnosis for this admission?: Yes (3) Respiratory acidosis Is this a current diagnosis for this admission?: Yes (4) Hypoglycemia Is this a current diagnosis for this admission?: Yes Plan: The hypoglycemia has resolved, discontinue intravenous 5% dextrose
[2018-12-25] MEDS: LEVOTHYROXINE SODIUM 0.15 MG TABLET PO SCH (05:07)
[2018-12-25] MEDS: PANTOPRAZOLE SODIUM 20 MG TABLET.DR PO SCH (05:07)
[2018-12-25] MEDS: INSULIN LISPRO 100 UNIT/ML 3 ML VIAL SUBCUT SCH ×4 (08:01→22:37)
[2018-12-25] MEDS: METOPROLOL SUCCINATE 50 MG TAB.SR.24H PO SCH (08:10)
[2018-12-25] MEDS: INSULIN GLARGINE,HUM.REC.ANLOG 1,000 UNIT/10 ML VIAL SUBCUT SCH (09:22)
[2018-12-25] MEDS: DULOXETINE HCL 30 MG CAPSULE.DR PO SCH ×2 (09:27→22:38)
[2018-12-25] MEDS: PREGABALIN 75 MG CAPSULE PO SCH ×2 (09:27→22:38)
[2018-12-25] MEDS: ENOXAPARIN SODIUM INJ 30 MG/0.3 ML DISP.SYRIN SUBCUT SCH (09:28)
[2018-12-25] MEDS: AMLODIPINE BESYLATE 5 MG TABLET PO SCH ×2 (09:28→22:38)
[2018-12-25] MEDS: FLUTICASONE/VILANTEROL 200-25 MCG/DOSE IH SCH (09:30)
--- NOTE | 2018-12-25 13:25 | PDOC PROGRESS REPORT ---
Subjective Progress Note for:: 12/25/18 Subjective:: Patient seen by the bedside, on auscultation of the chest there is diffuse expiratory wheeze, repeat chest x-ray is ordered Reason For Visit: LOBAR PNEUMONIA, ACUTE ON CHRONIC KIDNEY DISEASE Physical Exam Vital Signs: Temp Pulse Resp BP Pulse Ox 98.5 F 74 20 186/88 H 93 12/25/18 07:55 12/25/18 07:55 12/25/18 07:55 12/25/18 07:55 12/25/18 09:35 Intake & Output 12/24/18 12/25/18 12/26/18 06:59 06:59 06:59 Intake Total 1050 2203 Output Total 3600 2700 Balance -2550 -497 Weight 158.5 kg 157.8 kg General appearance: PRESENT: no acute distress Eye exam: PRESENT: PERRLA Respiratory exam: PRESENT: wheezes Cardiovascular exam: PRESENT: +S1, +S2 GI/Abdominal exam: PRESENT: soft Neurological exam: PRESENT: alert, CN II-XII grossly intact Results Laboratory Results: 12/23/18 04:48 12/23/18 22:11 12/17/18 12/17/18 14:38 14:38 Creatine Kinase 376 H CK-MB (CK-2) 2.48 Troponin I < 0.012 NT-Pro-B Natriuret Pep 2040 H Impressions: Chest CT 12/20/18 00:00 IMPRESSION: Ovoid areas of infiltrative density bilaterally in conjunction with mediastinal and hilar adenopathy and small effusions. Findings may reflect multifocal pneumonia. Atypical infection including invasive aspergillosis should be considered. Additional ideology such as bronchiole alveolar cell carcinoma or lymphoma, hemorrhage or sarcoid could also have this appearance. Chest X-Ray 12/24/18 00:00 IMPRESSION: Cardiomegaly without pulmonary edema. Cannot exclude airspace disease in either upper lobe. Assessment & Plan - Diagnosis (1) Lobar pneumonia, unspecified organism Is this a current diagnosis for this admission?: Yes Plan: Continue IV antibiotic, ordered chest x-ray, continue Breo (2) Chronic kidney disease, stage 3 Is this a current diagnosis for this admission?: Yes (3) Respiratory acidosis Is this a current diagnosis for this admission?: Yes (4) Hypoglycemia Is this a current diagnosis for this admission?: Yes
[2018-12-25 16:36] LABS: ASPERGILLUS FUMIGATUS Negative (Neg:<1:1)
[2018-12-25] MEDS: ATORVASTATIN CALCIUM 20 MG TABLET PO SCH (22:38)
[2018-12-25] MEDS: MONTELUKAST SODIUM 10 MG TABLET PO SCH (22:38)
[2018-12-26] MEDS: PANTOPRAZOLE SODIUM 20 MG TABLET.DR PO SCH (05:34)
[2018-12-26] MEDS: LEVOTHYROXINE SODIUM 0.15 MG TABLET PO SCH (05:34)
[2018-12-26] MEDS: INSULIN LISPRO 100 UNIT/ML 3 ML VIAL SUBCUT SCH ×4 (08:14→21:37)
[2018-12-26] MEDS: METOPROLOL SUCCINATE 50 MG TAB.SR.24H PO SCH (09:11)
[2018-12-26] MEDS: AMLODIPINE BESYLATE 5 MG TABLET PO SCH ×2 (09:11→21:52)
[2018-12-26] MEDS: ENOXAPARIN SODIUM INJ 30 MG/0.3 ML DISP.SYRIN SUBCUT SCH (09:11)
[2018-12-26] MEDS: PREGABALIN 75 MG CAPSULE PO SCH ×2 (09:11→21:48)
[2018-12-26] MEDS: FLUTICASONE/VILANTEROL 200-25 MCG/DOSE IH SCH (09:11)
[2018-12-26] MEDS: DULOXETINE HCL 30 MG CAPSULE.DR PO SCH ×2 (09:11→21:50)
[2018-12-26] MEDS: INSULIN GLARGINE,HUM.REC.ANLOG 1,000 UNIT/10 ML VIAL SUBCUT SCH (09:12)
--- NOTE | 2018-12-26 11:29 | RADIOLOGY REPORT (SQ) ---
EXAM DESCRIPTION: CHEST SINGLE VIEW COMPLETED DATE/TIME: 12/26/2018 11:21 am REASON FOR STUDY: pneumonia COMPARISON: Chest x-ray dated 12/24/2018. Chest CT dated 12/20/2018. EXAM PARAMETERS: NUMBER OF VIEWS: One view. TECHNIQUE: Single frontal radiographic view of the chest acquired. RADIATION DOSE: NA LIMITATIONS: None. FINDINGS: LUNGS AND PLEURA: Faint airspace disease in the upper lobes. No pleural effusion or pneum othorax. MEDIASTINUM AND HILAR STRUCTURES: No masses. Contour normal. HEART AND VASCULAR STRUCTURES: Stable cardiomegaly. BONES: No acute findings. HARDWARE: None in the chest. OTHER: No other significant finding. IMPRESSION: STABLE APPEARANCE OF THE CHEST. FAINT AIRSPACE DISEASE IN THE UPPER LOBES, UNCHANGED FR OM PREVIOUS CHEST X-RAY AND CT. TECHNICAL DOCUMENTATION: JOB ID: [id number] [employer]- All Rights Reserved Reading location - IP/workstation name: [email or web address] DANIEL
[2018-12-26 14:17] LABS: ABSOLUTE EOSINOPHILS # (AUTO) 0.5 10^3/uL (0.0-0.6); ABSOLUTE LYMPHOCYTES (AUTO) 1.4 10^3/uL (0.5-4.7); ABSOLUTE NEUT (AUTO) 4.5 10^3/uL (1.7-8.2); BASOPHILS % (AUTO) 0.5 % (0-2); EOSINOPHILS % (AUTO) 6.4 % (0-6); HEMATOCRIT 28.6 % (36.0-47.0); HEMOGLOBIN 9.4 g/dL (12.0-15.5); MEAN CORPUSCULAR HEMOGLOBIN 29.5 pg (27.0-33.4); MEAN CORPUSCULAR HGB CONC 32.9 g/dL (32.0-36.0); MEAN CORPUSCULAR VOLUME 90 fl (80-97); MONOCYTES % (AUTO) 13.3 % (3-13); PLATELET COUNT 188 10^3/uL (150-450); RED BLOOD COUNT 3.19 10^6/uL (3.72-5.28); RED CELL DISTRIBUTION WIDTH 15.6 % (11.5-14.0); SEGMENTED NEUTROPHILS % (AUTO) 60.8 % (42-78); TOTAL CELLS COUNTED % (AUTO) 100 %; WHITE BLOOD COUNT 7.4 10^3/uL (4.0-10.5)
[2018-12-26 14:29] LABS: ALANINE AMINOTRANSFERASE 26 U/L (9-52); ALBUMIN 2.6 g/dL (3.5-5.0); ALKALINE PHOSPHATASE 176 U/L (38-126); ANION GAP 7 (5-19); ASPARTATE AMINO TRANSFERASE 42 U/L (14-36); BILIRUBIN,DIRECT 0.3 mg/dL (0.0-0.4); BILIRUBIN,TOTAL 0.3 mg/dL (0.2-1.3); BLOOD UREA NITROGEN 42 mg/dL (7-20); CALCIUM 8.2 mg/dL (8.4-10.2); CARBON DIOXIDE 30 mmol/L (22-30); CHLORIDE 103 mmol/L (98-107); GLUCOSE 155 mg/dL (75-110); POTASSIUM 4.5 mmol/L (3.6-5.0); SODIUM 139.7 mmol/L (137-145); TOTAL PROTEIN 5.7 g/dL (6.3-8.2)
--- NOTE | 2018-12-26 18:31 | PDOC PROGRESS REPORT ---
Subjective Progress Note for:: 12/26/18 Subjective:: Patient seen by the bedside chest x-ray shows some improvement Reason For Visit: LOBAR PNEUMONIA, ACUTE ON CHRONIC KIDNEY DISEASE Physical Exam Vital Signs: Temp Pulse Resp BP Pulse Ox 98.0 F 58 L 18 182/58 H 100 12/26/18 15:47 12/26/18 15:47 12/26/18 15:47 12/26/18 15:47 12/26/18 15:47 Intake & Output 12/25/18 12/26/18 12/27/18 06:59 06:59 06:59 Intake Total 2203 1520 1730 Output Total 2700 2300 900 Balance -497 -780 830 Weight 157.8 kg 155.6 kg General appearance: PRESENT: no acute distress Eye exam: PRESENT: PERRLA Respiratory exam: PRESENT: clear to auscultation carter Cardiovascular exam: PRESENT: +S1, +S2 GI/Abdominal exam: PRESENT: soft Neurological exam: PRESENT: alert Results Laboratory Results: 12/26/18 13:21 12/26/18 13:21 12/26/18 12/26/18 13:21 13:21 WBC 7.4 RBC 3.19 L Hgb 9.4 L Hct 28.6 L MCV 90 MCH 29.5 MCHC 32.9 RDW 15.6 H Plt Count 188 Seg Neutrophils % 60.8 Lymphocytes % 19.0 Monocytes % 13.3 H Eosinophils % 6.4 H Basophils % 0.5 Absolute Neutrophils 4.5 Absolute Lymphocytes 1.4 Absolute Monocytes 1.0 Absolute Eosinophils 0.5 Absolute Basophils 0.0 Sodium 139.7 Potassium 4.5 Chloride 103 Carbon Dioxide 30 Anion Gap 7 BUN 42 H Creatinine 1.88 H Est GFR ( Amer) 32 L Est GFR (Non-Af Amer) 26 L Glucose 155 H Calcium 8.2 L Total Bilirubin 0.3 AST 42 H ALT 26 Alkaline Phosphatase 176 H Total Protein 5.7 L Albumin 2.6 L 12/17/18 12/17/18 14:38 14:38 Creatine Kinase 376 H CK-MB (CK-2) 2.48 Troponin I < 0.012 NT-Pro-B Natriuret Pep 2040 H Impressions: Chest CT 12/20/18 00:00 IMPRESSION: Ovoid areas of infiltrative density bilaterally in conjunction with mediastinal and hilar adenopathy and small effusions. Findings may reflect multifocal pneumonia. Atypical infection including invasive aspergillosis should be considered. Additional ideology such as bronchiole alveolar cell carcinoma or lymphoma, hemorrhage or sarcoid could also have this appearance. Chest X-Ray 12/26/18 00:00 IMPRESSION: STABLE APPEARANCE OF THE CHEST. FAINT AIRSPACE DISEASE IN THE UPPER LOBES, UNCHANGED FROM PREVIOUS CHEST X-RAY AND CT. Assessment & Plan - Diagnosis (1) Lobar pneumonia, unspecified organism Is this a current diagnosis for this admission?: Yes Plan: Continue IV antibiotic, continue Breo (2) Chronic kidney disease, stage 3 Is this a current diagnosis for this admission?: Yes (3) Respiratory acidosis Is this a current diagnosis for this admission?: Yes (4) Hypoglycemia Is this a current diagnosis for this admission?: Yes
[2018-12-26 19:10] LABS: ASPERGILLUS NIGER Negative (Neg:<1:1)
[2018-12-26] MEDS: ATORVASTATIN CALCIUM 20 MG TABLET PO SCH (21:48)
[2018-12-26] MEDS: ACETAMINOPHEN 325 MG TABLET PO PRN (21:49)
[2018-12-26] MEDS: MONTELUKAST SODIUM 10 MG TABLET PO SCH (21:50)
[2018-12-27] MEDS: PANTOPRAZOLE SODIUM 20 MG TABLET.DR PO SCH (05:06)
[2018-12-27] MEDS: LEVOTHYROXINE SODIUM 0.15 MG TABLET PO SCH (05:06)
[2018-12-27] MEDS: INSULIN LISPRO 100 UNIT/ML 3 ML VIAL SUBCUT SCH ×4 (08:34→21:09)
[2018-12-27] MEDS: ENOXAPARIN SODIUM INJ 30 MG/0.3 ML DISP.SYRIN SUBCUT SCH (09:31)
[2018-12-27] MEDS: METOPROLOL SUCCINATE 50 MG TAB.SR.24H PO SCH (09:32)
[2018-12-27] MEDS: INSULIN GLARGINE,HUM.REC.ANLOG 1,000 UNIT/10 ML VIAL SUBCUT SCH (09:32)
[2018-12-27] MEDS: PREGABALIN 75 MG CAPSULE PO SCH ×2 (09:32→21:10)
[2018-12-27] MEDS: AMLODIPINE BESYLATE 5 MG TABLET PO SCH ×2 (09:32→21:10)
[2018-12-27] MEDS: DULOXETINE HCL 30 MG CAPSULE.DR PO SCH ×2 (09:32→21:10)
[2018-12-27] MEDS: FLUTICASONE/VILANTEROL 200-25 MCG/DOSE IH SCH (09:36)
[2018-12-27] MEDS: ACETAMINOPHEN 325 MG TABLET PO PRN ×2 (10:21→23:00)
--- NOTE | 2018-12-27 20:34 | PDOC PROGRESS REPORT ---
Subjective Progress Note for:: 12/27/18 Subjective:: Patient seen by the bedside chest x-ray shows some improvement Reason For Visit: LOBAR PNEUMONIA, ACUTE ON CHRONIC KIDNEY DISEASE Physical Exam Vital Signs: Temp Pulse Resp BP Pulse Ox 98.4 F 70 22 H 179/65 H 100 12/27/18 12:09 12/27/18 19:00 12/27/18 12:09 12/27/18 12:09 12/27/18 12:09 Intake & Output 12/26/18 12/27/18 12/28/18 06:59 06:59 06:59 Intake Total 1520 2070 650 Output Total 2300 2000 1800 Balance -780 70 -1150 Weight 155.6 kg 156 kg General appearance: PRESENT: no acute distress Eye exam: PRESENT: PERRLA Respiratory exam: PRESENT: clear to auscultation carter Cardiovascular exam: PRESENT: +S1, +S2 Neurological exam: PRESENT: alert Results Laboratory Results: 12/26/18 13:21 12/26/18 13:21 12/17/18 12/17/18 14:38 14:38 Creatine Kinase 376 H CK-MB (CK-2) 2.48 Troponin I < 0.012 NT-Pro-B Natriuret Pep 2040 H Impressions: Chest CT 12/20/18 00:00 IMPRESSION: Ovoid areas of infiltrative density bilaterally in conjunction with mediastinal and hilar adenopathy and small effusions. Findings may reflect multifocal pneumonia. Atypical infection including invasive aspergillosis should be considered. Additional ideology such as bronchiole alveolar cell carcinoma or lymphoma, hemorrhage or sarcoid could also have this appearance. Chest X-Ray 12/26/18 00:00 IMPRESSION: STABLE APPEARANCE OF THE CHEST. FAINT AIRSPACE DISEASE IN THE UPPER LOBES, UNCHANGED FROM PREVIOUS CHEST X-RAY AND CT. Assessment & Plan - Diagnosis (1) Lobar pneumonia, unspecified organism Is this a current diagnosis for this admission?: Yes (2) Chronic kidney disease, stage 3 Is this a current diagnosis for this admission?: Yes (3) Respiratory acidosis Is this a current diagnosis for this admission?: Yes (4) Hypoglycemia Is this a current diagnosis for this admission?: Yes
[2018-12-27] MEDS: ATORVASTATIN CALCIUM 20 MG TABLET PO SCH (21:10)
[2018-12-27] MEDS: MONTELUKAST SODIUM 10 MG TABLET PO SCH (21:10)
[2018-12-28] MEDS: PANTOPRAZOLE SODIUM 20 MG TABLET.DR PO SCH (05:20)
[2018-12-28] MEDS: LEVOTHYROXINE SODIUM 0.15 MG TABLET PO SCH (05:20)
[2018-12-28] MEDS: INSULIN LISPRO 100 UNIT/ML 3 ML VIAL SUBCUT SCH ×4 (09:22→21:30)
[2018-12-28] MEDS: DULOXETINE HCL 30 MG CAPSULE.DR PO SCH ×2 (09:28→21:32)
[2018-12-28] MEDS: AMLODIPINE BESYLATE 5 MG TABLET PO SCH ×2 (09:29→21:32)
[2018-12-28] MEDS: METOPROLOL SUCCINATE 50 MG TAB.SR.24H PO SCH (09:29)
[2018-12-28] MEDS: PREGABALIN 75 MG CAPSULE PO SCH ×2 (09:29→21:31)
[2018-12-28] MEDS: SITAGLIPTIN PHOSPHATE 50 MG TABLET PO SCH (09:29)
[2018-12-28] MEDS: ENOXAPARIN SODIUM INJ 30 MG/0.3 ML DISP.SYRIN SUBCUT SCH (09:30)
[2018-12-28] MEDS: INSULIN GLARGINE,HUM.REC.ANLOG 1,000 UNIT/10 ML VIAL SUBCUT SCH (09:30)
[2018-12-28] MEDS: FLUTICASONE/VILANTEROL 200-25 MCG/DOSE IH SCH (09:31)
--- NOTE | 2018-12-28 20:42 | PDOC PROGRESS REPORT ---
Subjective Progress Note for:: 12/28/18 Subjective:: She was seen by the bedside, patient's condition is smouldering along she continues to have shortness of breath, chest congestion. The son was in the room today I had a long discussion with the patient and his son today Reason For Visit: LOBAR PNEUMONIA, ACUTE ON CHRONIC KIDNEY DISEASE Physical Exam Vital Signs: Temp Pulse Resp BP Pulse Ox 98.8 F 70 20 189/73 H 93 12/28/18 19:42 12/28/18 19:42 12/28/18 19:42 12/28/18 19:42 12/28/18 19:42 Intake & Output 12/27/18 12/28/18 12/29/18 06:59 06:59 06:59 Intake Total 2070 1148 1075 Output Total 1999 3000 1400 Balance 70 -3872 -325 Weight 156 kg 154.8 kg General appearance: PRESENT: no acute distress Eye exam: PRESENT: PERRLA Respiratory exam: PRESENT: rhonchi Cardiovascular exam: PRESENT: +S1, +S2 GI/Abdominal exam: PRESENT: soft Neurological exam: PRESENT: alert Results Laboratory Results: 12/26/18 13:21 12/26/18 13:21 12/17/18 12/17/18 14:38 14:38 Creatine Kinase 376 H CK-MB (CK-2) 2.48 Troponin I < 0.012 NT-Pro-B Natriuret Pep 2040 H Impressions: Chest CT 12/20/18 00:00 IMPRESSION: Ovoid areas of infiltrative density bilaterally in conjunction with mediastinal and hilar adenopathy and small effusions. Findings may reflect multifocal pneumonia. Atypical infection including invasive aspergillosis should be considered. Additional ideology such as bronchiole alveolar cell carcinoma or lymphoma, hemorrhage or sarcoid could also have this appearance. Chest X-Ray 12/26/18 00:00 IMPRESSION: STABLE APPEARANCE OF THE CHEST. FAINT AIRSPACE DISEASE IN THE UPPER LOBES, UNCHANGED FROM PREVIOUS CHEST X-RAY AND CT. Assessment & Plan - Diagnosis (1) Lobar pneumonia, unspecified organism Is this a current diagnosis for this admission?: Yes Plan: PT consult obtain (2) Chronic kidney disease, stage 3 Is this a current diagnosis for this admission?: Yes (3) Respiratory acidosis Is this a current diagnosis for this admission?: Yes (4) Hypoglycemia Is this a current diagnosis for this admission?: Yes
[2018-12-28] MEDS: ACETAMINOPHEN 325 MG TABLET PO PRN (21:31)
[2018-12-28] MEDS: ATORVASTATIN CALCIUM 20 MG TABLET PO SCH (21:31)
[2018-12-28] MEDS: MONTELUKAST SODIUM 10 MG TABLET PO SCH (21:32)
[2018-12-29] MEDS: PANTOPRAZOLE SODIUM 20 MG TABLET.DR PO SCH (05:13)
[2018-12-29] MEDS: LEVOTHYROXINE SODIUM 0.15 MG TABLET PO SCH (05:13)
[2018-12-29] MEDS: METOPROLOL SUCCINATE 50 MG TAB.SR.24H PO SCH (10:05)
[2018-12-29] MEDS: FLUTICASONE/VILANTEROL 200-25 MCG/DOSE IH SCH (10:05)
[2018-12-29] MEDS: SITAGLIPTIN PHOSPHATE 50 MG TABLET PO SCH (10:05)
[2018-12-29] MEDS: PREGABALIN 75 MG CAPSULE PO SCH ×2 (10:05→21:28)
[2018-12-29] MEDS: AMLODIPINE BESYLATE 5 MG TABLET PO SCH ×2 (10:05→21:28)
[2018-12-29] MEDS: ENOXAPARIN SODIUM INJ 30 MG/0.3 ML DISP.SYRIN SUBCUT SCH (10:05)
[2018-12-29] MEDS: DULOXETINE HCL 30 MG CAPSULE.DR PO SCH ×2 (10:05→21:27)
[2018-12-29] MEDS: INSULIN LISPRO 100 UNIT/ML 3 ML VIAL SUBCUT SCH ×4 (10:06→21:25)
[2018-12-29] MEDS: INSULIN GLARGINE,HUM.REC.ANLOG 1,000 UNIT/10 ML VIAL SUBCUT SCH (10:06)
--- NOTE | 2018-12-29 14:24 | PDOC PROGRESS REPORT ---
Subjective Progress Note for:: 12/29/18 Subjective:: Patient seen by the bedside, she refused to go to the custodial for rehab Reason For Visit: LOBAR PNEUMONIA, ACUTE ON CHRONIC KIDNEY DISEASE Physical Exam Vital Signs: Temp Pulse Resp BP Pulse Ox 97.5 F 55 L 18 153/63 H 100 12/29/18 07:59 12/29/18 07:59 12/29/18 07:59 12/29/18 07:59 12/29/18 08:00 Intake & Output 12/28/18 12/29/18 12/30/18 06:59 06:59 06:59 Intake Total 1148 1075 Output Total 3000 2150 Balance -1852 -1075 Weight 154.8 kg 154.5 kg General appearance: PRESENT: no acute distress Eye exam: PRESENT: PERRLA Respiratory exam: PRESENT: clear to auscultation carter Cardiovascular exam: PRESENT: +S1, +S2 GI/Abdominal exam: PRESENT: soft Neurological exam: PRESENT: alert Results Laboratory Results: 12/26/18 13:21 12/26/18 13:21 12/17/18 12/17/18 14:38 14:38 Creatine Kinase 376 H CK-MB (CK-2) 2.48 Troponin I < 0.012 NT-Pro-B Natriuret Pep 2040 H Impressions: Chest CT 12/20/18 00:00 IMPRESSION: Ovoid areas of infiltrative density bilaterally in conjunction with mediastinal and hilar adenopathy and small effusions. Findings may reflect multifocal pneumonia. Atypical infection including invasive aspergillosis should be considered. Additional ideology such as bronchiole alveolar cell carcinoma or lymphoma, hemorrhage or sarcoid could also have this appearance. Chest X-Ray 12/26/18 00:00 IMPRESSION: STABLE APPEARANCE OF THE CHEST. FAINT AIRSPACE DISEASE IN THE UPPER LOBES, UNCHANGED FROM PREVIOUS CHEST X-RAY AND CT. Assessment & Plan - Diagnosis (1) Lobar pneumonia, unspecified organism Is this a current diagnosis for this admission?: Yes (2) Chronic kidney disease, stage 3 Is this a current diagnosis for this admission?: Yes (3) Respiratory acidosis Is this a current diagnosis for this admission?: Yes (4) Hypoglycemia Is this a current diagnosis for this admission?: Yes
[2018-12-29] MEDS: ATORVASTATIN CALCIUM 20 MG TABLET PO SCH (21:28)
[2018-12-29] MEDS: MONTELUKAST SODIUM 10 MG TABLET PO SCH (21:28)
[2018-12-30] MEDS: PANTOPRAZOLE SODIUM 20 MG TABLET.DR PO SCH (05:06)
[2018-12-30] MEDS: LEVOTHYROXINE SODIUM 0.15 MG TABLET PO SCH (05:06)
[2018-12-30] MEDS: INSULIN LISPRO 100 UNIT/ML 3 ML VIAL SUBCUT SCH ×3 (10:09→21:03)
[2018-12-30] MEDS: ENOXAPARIN SODIUM INJ 30 MG/0.3 ML DISP.SYRIN SUBCUT SCH (10:14)
[2018-12-30] MEDS: SITAGLIPTIN PHOSPHATE 50 MG TABLET PO SCH (10:14)
[2018-12-30] MEDS: AMLODIPINE BESYLATE 5 MG TABLET PO SCH ×2 (10:14→21:06)
[2018-12-30] MEDS: METOPROLOL SUCCINATE 50 MG TAB.SR.24H PO SCH (10:14)
[2018-12-30] MEDS: DULOXETINE HCL 30 MG CAPSULE.DR PO SCH ×2 (10:14→21:07)
[2018-12-30] MEDS: PREGABALIN 75 MG CAPSULE PO SCH ×2 (10:15→21:07)
[2018-12-30] MEDS: INSULIN GLARGINE,HUM.REC.ANLOG 1,000 UNIT/10 ML VIAL SUBCUT SCH (10:15)
[2018-12-30] MEDS: FLUTICASONE/VILANTEROL 200-25 MCG/DOSE IH SCH (10:17)
--- NOTE | 2018-12-30 20:10 | PDOC DISCHARGE SUMMARY ---
General - Admit/Disc Date/PCP Admission Date/Primary Care Provider: 12/17/18 20:27 BRAD GIVENS MD Discharge Date: 12/30/18 - Discharge Diagnosis (1) Lobar pneumonia, unspecified organism Is this a current diagnosis for this admission?: Yes (2) Chronic kidney disease, stage 3 Is this a current diagnosis for this admission?: Yes (3) Respiratory acidosis Is this a current diagnosis for this admission?: Yes (4) Hypoglycemia Is this a current diagnosis for this admission?: Yes (5) Type 2 diabetes mellitus with diabetic polyneuropathy Is this a current diagnosis for this admission?: Yes - Additional Information Resuscitation Status: Full Code Home Medications: Atorvastatin Calcium [Lipitor 20 mg Tablet] 20 mg PO QHS 08/04/18 Duloxetine HCl [Cymbalta] 60 mg PO Q12 08/04/18 Insulin Glargine,Hum.rec.anlog [Basaglar Kwikpen U-100] 52 unit SQ QAM 08/04/18 Levothyroxine Sodium 150 mcg PO Q6AM 08/04/18 Linagliptin [Tradjenta] 5 mg PO QAM 08/04/18 Metoprolol Succinate [Toprol Xl] 200 mg PO QAM 08/04/18 Mirabegron [Myrbetriq] 50 mg PO QAM 08/04/18 Montelukast Sodium [Singulair 10 mg Tablet] 10 mg PO QHS 08/04/18 Omeprazole Magnesium [Prilosec Otc] 20 mg PO Q6AM 08/04/18 Pregabalin [Lyrica] 150 mg PO Q12 08/04/18 Budesonide/Formoterol Fumarate [Symbicort HFA 160-4.5 mcg Inhaler 6 gm] 2 puff IH Q12 #2 inhaler 08/11/18 Acetaminophen [Tylenol 325 mg Tablet] 650 mg PO Q4HP PRN tablet 12/30/18 Amlodipine Besylate [Norvasc 5 mg Tablet] 10 mg PO QAM #90 12/30/18 History of Present Illness History of Present Illness: ONDINA ENRIQUEZ is a 73 year old female, she was admitted on 12/17/2018 when she presented for evaluation of shortness of breath, cough. In the emergency room a chest x-ray was done that that demonstrated left lung base airspace disease Hospital Course Hospital Course: She was admitted for the management of pneumonia CT chest was done that demo nstrated diffuse parenchymal infiltrate bilaterally, consultation was requested from pulmonary because I felt she may need a bronchoscopy, she was seen by Dr. Lori willson, he felt that the bronchoscopy could be done outpatient. She was treated with IV antibiotic, she is very obese, she has underlining chronic kidney disease stage III, very sedentary lifestyle, generalized osteoarthritis affecting multiple joints. She has acute kidney injury superimposed on chronic kidney disease. She was also treated with bronchodilators Physical Exam Vital Signs: Temp Pulse Resp BP Pulse Ox 97.5 F 62 16 157/56 H 100 12/30/18 17:39 12/30/18 19:04 12/30/18 17:39 12/30/18 17:39 12/30/18 17:39 Intake & Output 12/29/18 12/30/18 12/31/18 06:59 06:59 06:59 Intake Total 1075 700 400 Output Total 2150 1850 1000 Balance -1075 -1150 -600 Weight 154.5 kg 155 kg General appearance: PRESENT: no acute distress Head exam: PRESENT: atraumatic, normocephalic Eye exam: PRESENT: PERRLA Ear exam: PRESENT: normal external ear exam Mouth exam: PRESENT: moist, tongue midline Neck exam: PRESENT: full ROM Respiratory exam: PRESENT: clear to auscultation carter Cardiovascular exam: PRESENT: RRR, +S1, +S2 Pulses: PRESENT: normal dorsalis pedis pul, +2 pedal pulses bilateral Vascular exam: PRESENT: normal capillary refill GI/Abdominal exam: PRESENT: normal bowel sounds, soft Rectal exam: PRESENT: deferred Neurological exam: PRESENT: alert Psychiatric exam: PRESENT: appropriate affect, normal mood Skin exam: PRESENT: dry, intact, warm Results Laboratory Results: 12/26/18 13:21 12/26/18 13:21 12/17/18 12/17/18 14:38 14:38 Creatine Kinase 376 H CK-MB (CK-2) 2.48 Troponin I < 0.012 NT-Pro-B Natriuret Pep 2040 H Impressions: Chest CT 12/20/18 00:00 IMPRESSION: Ovoid areas of infiltrative density bilaterally in conjunction with mediastinal and hilar adenopathy and small effusions. Findings may reflect multifocal pneumonia. Atypical infection including invasive aspergillosis should be considered. Additional ideology such as bronchiole alveolar cell carcinoma or lymphoma, hemorrhage or sarcoid could also have this appearance. Chest X-Ray 12/26/18 00:00 IMPRESSION: STABLE APPEARANCE OF THE CHEST. FAINT AIRSPACE DISEASE IN THE UPPER LOBES, UNCHANGED FROM PREVIOUS CHEST X-RAY AND CT. Qualifiers - * PATIENT BEING DISCHARGED WITH ANY OF THE FOLLOWING DIAGNOSIS: No Acute Heart Failure Is this a Heart Failure Patient?: No
[2018-12-30] MEDS: ATORVASTATIN CALCIUM 20 MG TABLET PO SCH (21:06)
[2018-12-30] MEDS: MONTELUKAST SODIUM 10 MG TABLET PO SCH (21:06)
[2018-12-31] MEDS: INSULIN LISPRO 100 UNIT/ML 3 ML VIAL SUBCUT SCH ×3 (00:17→12:14)
[2018-12-31] MEDS: LEVOTHYROXINE SODIUM 0.15 MG TABLET PO SCH (05:13)
[2018-12-31] MEDS: PANTOPRAZOLE SODIUM 20 MG TABLET.DR PO SCH (05:13)
[2018-12-31] MEDS: DULOXETINE HCL 30 MG CAPSULE.DR PO SCH (09:48)
[2018-12-31] MEDS: AMLODIPINE BESYLATE 5 MG TABLET PO SCH (09:49)
[2018-12-31] MEDS: ENOXAPARIN SODIUM INJ 30 MG/0.3 ML DISP.SYRIN SUBCUT SCH (09:49)
[2018-12-31] MEDS: SITAGLIPTIN PHOSPHATE 50 MG TABLET PO SCH (09:49)
[2018-12-31] MEDS: METOPROLOL SUCCINATE 50 MG TAB.SR.24H PO SCH (09:49)
[2018-12-31] MEDS: PREGABALIN 75 MG CAPSULE PO SCH (09:49)
[2018-12-31] MEDS: INSULIN GLARGINE,HUM.REC.ANLOG 1,000 UNIT/10 ML VIAL SUBCUT SCH (09:50)
[2018-12-31] MEDS: FLUTICASONE/VILANTEROL 200-25 MCG/DOSE IH SCH (12:16)
[2018-12-31 15:24] VITALS: BP 150/93
== END 2018-12-31 15:30 | disposition home or self-care (01) | DRG 194 ==
LOC: ER 12:22 → EH 20:27 → 3W 12-18 01:05
PROVIDERS: ADMIT Internal Medicine; ATTEND Internal Medicine
PROC: 5A09557 Assistance with Respiratory Ventilation, Greater than 96 Consecutive Hours, Continuous Positive Airway Pressure (ICD-10-PCS; principal; 2018-12-21)
DX: J18.1 Lobar pneumonia, unspecified organism (principal); Z68.43 Body mass index [BMI] 50.0-59.9, adult; J44.0 Chronic obstructive pulmonary disease with (acute) lower respiratory infection; E87.2 Acidosis; N18.3 Chronic kidney disease, stage 3 (moderate); E66.01 Morbid (severe) obesity due to excess calories; J44.9 Chronic obstructive pulmonary disease, unspecified; I12.9 Hypertensive chronic kidney disease with stage 1 through stage 4 chronic kidney disease, or unspecified chronic kidney disease; E11.42 Type 2 diabetes mellitus with diabetic polyneuropathy; E11.649 Type 2 diabetes mellitus with hypoglycemia without coma; E78.5 Hyperlipidemia, unspecified; M15.9 Polyosteoarthritis, unspecified; E11.22 Type 2 diabetes mellitus with diabetic chronic kidney disease; E03.9 Hypothyroidism, unspecified; K21.9 Gastro-esophageal reflux disease without esophagitis; F32.9 Major depressive disorder, single episode, unspecified; Z79.4 Long term (current) use of insulin; Z90.49 Acquired absence of other specified parts of digestive tract; Z88.6 Allergy status to analgesic agent; Z88.8 Allergy status to other drugs, medicaments and biological substances; Z96.653 Presence of artificial knee joint, bilateral
CPT/HCPCS: 36415; 71045; 71046; 71250; 80053; 82310; 82550; 82553; 82803; 82962; 83036; 83735; 83880; 84100; 84484; 85025; 86606; 87040; 93005; 93010; 94640; 94660; 94799; 96365; 96367; 99285; J0456; J0696; J1650; J1815; J1940; J3490; J7060; J7620

== ENCOUNTER → 2019-01-17 | Outpatient (CLI) | payer MEDICARE, MEDICAID ==
[2019-01-17 16:45] LABS: ALBUMIN 3.2 g/dL (3.5-5.0); ANION GAP 9 (5-19); BLOOD UREA NITROGEN 41 mg/dL (7-20); CALCIUM 8.7 mg/dL (8.4-10.2); CARBON DIOXIDE 27 mmol/L (22-30); CHLORIDE 108 mmol/L (98-107); GLUCOSE 90 mg/dL (75-110); IRON(TIBC) 60.6 ug/dL (37-170); PHOSPHORUS 5.3 mg/dL (2.5-4.5); POTASSIUM 4.8 mmol/L (3.6-5.0); SODIUM 143.9 mmol/L (137-145)
[2019-01-17 16:55] LABS: APPEARANCE,URINE CLOUDY; BILIRUBIN,URINE NEGATIVE (NEGATIVE); COLOR,URINE YELLOW; GLUCOSE, URINE NEGATIVE (NEGATIVE); KETONES,URINE NEGATIVE (NEGATIVE); LEUKOCYTE ESTERASE,URINE LARGE (NEGATIVE); NITRITE,URINE NEGATIVE (NEGATIVE); PROTEIN,URINE >=500 mg/dL (NEGATIVE); URINE SPECIFIC GRAVITY 1.013; UROBILINOGEN,URINE NEGATIVE mg/dL (<2.0)
[2019-01-17 17:07] LABS: HEMATOCRIT 31.1 % (36.0-47.0); HEMOGLOBIN 10.1 g/dL (12.0-15.5); MEAN CORPUSCULAR HEMOGLOBIN 29.2 pg (27.0-33.4); MEAN CORPUSCULAR HGB CONC 32.4 g/dL (32.0-36.0); MEAN CORPUSCULAR VOLUME 90 fl (80-97); RED BLOOD COUNT 3.44 10^6/uL (3.72-5.28); WHITE BLOOD COUNT 8.6 10^3/uL (4.0-10.5)
[2019-01-17 17:11] LABS: PLATELET COUNT 150 10^3/uL (150-450)
[2019-01-17 17:12] LABS: ABSOLUTE LYMPHOCYTES# (MANUAL) 1.2 10^3/uL (0.5-4.7); ABSOLUTE MONOCYTES # (MANUAL) 0.8 10^3/uL (0.1-1.4); ABSOLUTE NEUTROPHILS# (MANUAL) 6.3 10^3/uL (1.7-8.2); ANISOCYTOSIS 1+; BASOPHILS % (MANUAL) 0 % (0-2); EOSINOPHILS % (MANUAL) 4 % (0-6); LYMPHOCYTES % (MANUAL) 13 % (13-45); MONOCYTES % (MANUAL) 9 % (3-13); POLYCHROMASIA SLIGHT; SEGMENTED NEUTROPHILS % (MAN) 73 % (42-78); TOTAL CELLS COUNTED 100; TOXIC GRANULATION 1+; TOXIC VACUOLATION PRESENT
[2019-01-17 17:13] LABS: PLATELET CLUMPS PRESENT; PLATELET COMMENT ADEQUATE
== END ==
LOC: OD 15:34
PROVIDERS: ATTEND Internal Medicine Nephrology
DX: E11.22 Type 2 diabetes mellitus with diabetic chronic kidney disease (principal); N18.4 Chronic kidney disease, stage 4 (severe); D63.1 Anemia in chronic kidney disease; R80.9 Proteinuria, unspecified; N39.0 Urinary tract infection, site not specified
CPT/HCPCS: 36415; 80069; 81001; 82306; 82728; 83540; 83550; 83970; 85025; 87086; 87088

== ENCOUNTER 2019-01-19 10:25 | Inpatient (IN) | payer MEDICARE, MEDICAID ==
[2019-01-19] MEDS ORDERED: DEXTROSE 50%-WATER 25 GM/50 ML DISP.SYRIN IV ONE ×3 (10:31→12:58)
[2019-01-19] MEDS ORDERED: GLUCAGON,HUMAN RECOMB 1 MG INJ ONE (10:31)
[2019-01-19] MEDS ORDERED: GLUCAGON,HUMAN RECOMB 1 MG INJ SUBCUT ONE (10:52)
--- NOTE | 2019-01-19 10:56 | ER Document Report ---
ED General - General Chief Complaint: Breathing Difficulty Stated Complaint: SHORTNESS OF BREATH Time Seen by Provider: 01/19/19 10:50 Primary Care Provider: YIMI ECHAVARRIA MD [Primary Care Provider] - Follow up as needed TRAVEL OUTSIDE OF THE [place] IN LAST 30 DAYS: No - HPI Notes: Patient is a 73-year-old female that presents to the emergency department for chief complaint of fall. Patient arrived by EMS after left one called for concern of fall. Patient was found sitting next to her bed minimally responsive. EMS reported a blood sugar of 23 when they arrived on scene. Patient was given IM glucagon x1 dose prior to arrival for her hypoglycemia. Patient was wearing her 2 L nasal cannula oxygen and was 80%. Patients family states that it appeared that she had low ered herself off the bed. They denied any known head injury or signs of head injury on scene. HPI is limited because the patient's mentation. Past Medical History: Diabetes, COPD Past Surgical History: Reviewed in chart Social History: Reviewed in chart Family History: Reviewed and noncontributory for presenting illness Allergies: Reviewed, see documented allergy list. REVIEW OF SYSTEMS: Unable to obtain because of acuity of condition PHYSICAL EXAMINATION: Vital signs reviewed, nursing noted reviewed. GENERAL: Somnolent, obese HEAD: Atraumatic, normocephalic. EYES: Eyes appear normal, extraocular movements intact, sclera anicteric, conjunctiva are normal. ENT: nares patent, oropharynx clear without exudates. Moist mucous membranes. NECK: Normal range of motion, supple without lymphadenopathy LUNGS: Breath sounds clear to auscultation bilaterally and equal. No wheezes rales or rhonchi. HEART: Regular rate and rhythm without murmurs ABDOMEN: Soft, nontender, normoactive bowel sounds. No rebound, guarding, or rigidity. No masses appreciated. EXTREMITIES: Nontender, good range of motion, +2 pitting edema bilateral lower extremities NEUROLOGICAL: Somnolent, GCS 10, moves all extremities spontaneously Motor SKIN: Warm, Dry, normal turgor, venous stasis skin changes to lower extremities - Related Data Allergies/Adverse Reactions: aspirin [Aspirin] Allergy (Verified 01/19/19 11:29) Edema, GI UPSET morphine [Morphine] Allergy (Verified 01/19/19 11:29) ANAPHYLAXSIS, Facial swelling Past Medical History - Social History Smoking Status: Unknown if Ever Smoked Family History: Reviewed & Not Pertinent - Past Medical History Cardiac Medical History: Reports: Hx Hypercholesterolemia, Hx Hypertension Pulmonary Medical History: Reports: Hx Asthma, Hx COPD, Hx Pneumonia Neurological Medical History: Denies: Hx Cerebrovascular Accident Endocrine Medical History: Reports: Hx Diabetes Mellitus Type 2, Hx Hyp othyroidism Renal/ Medical History: Reports: Hx End Stage Renal Disease. Denies: Hx Peritoneal Dialysis GI Medical History: Reports: Hx Gastroesophageal Reflux Disease, Hx Ulcer Musculoskeletal Medical History: Reports Hx Arthritis Psychiatric Medical History: Reports: Hx Depression Past Surgical History: Reports: Hx Cholecystectomy, Hx Hysterectomy, Hx Orthopedic Surgery - bilateral knee replacement. Denies: Hx Pacemaker - Immunizations Immunizations up to date: Yes Hx Diphtheria, Pertussis, Tetanus Vaccination: No Hx Pneumococcal Vaccination: 03/11/12 Course - Re-evaluation Re-evalutation: 01/19/19 10:55 Patient presented by EMS on CPAP. Her GCS was 10. Bwapd-cn-ybzn glucose obtained upon arrival in the ED and was 26. IV access had not been established and patient was given IM glucagon. This did improve her mentation. She woke up to a GCS of 14. Patient states she was trying to get out of bed but was unable to stand up and slowly sat down on the floor. She is an insulin-dependent diabetic and last took her insulin last night. She reports feeling tired but has no other complaints. 01/19/19 10:59 Patient did become more somnolent after the glucagon and had repeat mhnzj-mq-ptly glucose at 39. She was then given 1 amp of D50. She had significant improvement of mentation after IV D50. Patient's djrda-rz-swrf glucose improved to 60 and she was given a second amp of D50. 01/19/19 12:18 Patient reevaluated and is still mentating appropriately. She is alert and oxygenating on her home 2 L. Chest x-ray shows right upper lobe pneumonia which will be treated with Rocephin and azithromycin. She has no fever or leukocytosis to suggest sepsis. Blood cultures were ordered. Patients blood glucose increased into the 130s after her second dose of IV D50 but recently decreased again into the 70s. Patient was given orange juice. She is continuing to become hypoglycemic likely secondary to her pneumonia. Patient also has a slight elevation of her troponin at 0.044 and a new idioventricular conduction delay on EKG compared to 12/17/2018. Patient is allergic to aspirin which is why aspirin was not given in the emergency room. Repeat EKG has been ordered to check for dynamic changes. Patient has not had any chest pain complaints. 01/19/19 13:11 Patient's repeat EKG is unchanged from her initial. Patient's care was discussed with Dr. Interiano who will admit her to the hospital for further management. Patient is tolerating oral intake currently and still stable on nasal cannula oxygen. Laboratory 01/19/19 01/19/19 01/19/19 10:36 10:45 10:45 WBC 9.1 RBC 3.39 L Hgb 10.0 L Hct 30.5 L MCV 90 MCH 29.5 MCHC 32.9 RDW 16.4 H Plt Count 170 Seg Neutrophils % 74.5 Lymphocytes % 11.5 L Monocytes % 12.2 Eosinophils % 1.3 Basophils % 0.5 Absolute Neutrophils 6.8 Absolute Lymphocytes 1.0 Absolute Monocytes 1.1 Absolute Eosinophils 0.1 Absolute Basophils 0.0 VBG pH VBG pCO2 VBG HCO3 VBG Base Excess Sodium 143.8 Potassium 4.4 Chloride 107 Carbon Dioxide 31 H Anion Gap 6 BUN 38 H Creatinine 1.83 H Est GFR ( Amer) 33 L Est GFR (Non-Af Amer) 27 L Glucose 64 L POC Glucose 34 L* Lactic Acid Calcium 8.8 Total Bilirubin 0.7 Direct Bilirubin 0.3 Neonat Total Bilirubin Not Reportable Neonat Direct Bilirubin Not Reportable Neonat Indirect Bili Not Reportable AST 40 H ALT 23 Alkaline Phosphatase 152 H Troponin I Total Protein 6.9 Albumin 3.3 L 01/19/19 01/19/19 01/19/19 10:45 10:45 10:45 WBC RBC Hgb Hct MCV MCH MCHC RDW Plt Count Seg Neutrophils % Lymphocytes % Monocytes % Eosinophils % Basophils % Absolute Neutrophils Absolute Lymphocytes Absolute Monocytes Absolute Eosinophils Absolute Basophils VBG pH Cancelled VBG pCO2 Cancelled VBG HCO3 Cancelled VBG Base Excess Cancelled Sodium Potassium Chloride Carbon Dioxide Anion Gap BUN Creatinine Est GFR ( Amer) Est GFR (Non-Af Amer) Glucose POC Glucose Lactic Acid 0.6 L Calcium Total Bilirubin Direct Bilirubin Neonat Total Bilirubin Neonat Direct Bilirubin Neonat Indirect Bili AST ALT Alkaline Phosphatase Troponin I 0.044 Total Protein Albumin 01/19/19 01/19/19 10:58 11:14 WBC RBC Hgb Hct MCV MCH MCHC RDW Plt Count Seg Neutrophils % Lymphocytes % Monocytes % Eosinophils % Basophils % Absolute Neutrophils Absolute Lymphocytes Absolute Monocytes Absolute Eosinophils Absolute Basophils VBG pH VBG pCO2 VBG HCO3 VBG Base Excess Sodium Potassium Chloride Carbon Dioxide Anion Gap BUN Creatinine Est GFR ( Amer) Est GFR (Non-Af Amer) Glucose POC Glucose 60 L 136 H Lactic Acid Calcium Total Bilirubin Direct Bilirubin Neonat Total Bilirubin Neonat Direct Bilirubin Neonat Indirect Bili AST ALT Alkaline Phosphatase Troponin I Total Protein Albumin Chest X-Ray 01/19/19 10:50 IMPRESSION: Right upper lobe pneumonia. There is a background of pulmonary vascular congestion. - Laboratory Result Diagrams: 01/19/19 10:45 01/19/19 10:45 Laboratory results interpreted by me: 01/19/19 01/19/19 01/19/19 10:36 10:45 10:45 RBC 3.39 L Hgb 10.0 L Hct 30.5 L RDW 16.4 H Lymphocytes % 11.5 L Carbon Dioxide 31 H BUN 38 H Creatinine 1.83 H Est GFR ( Amer) 33 L Est GFR (Non-Af Amer) 27 L Glucose 64 L POC Glucose 34 L* Lactic Acid AST 40 H Alkaline Phosphatase 152 H Albumin 3.3 L 01/19/19 01/19/19 01/19/19 10:45 10:58 11:14 RBC Hgb Hct RDW Lymphocytes % Carbon Dioxide BUN Creatinine Est GFR ( Amer) Est GFR (Non-Af Amer) Glucose POC Glucose 60 L 136 H Lactic Acid 0.6 L AST Alkaline Phosphatase Albumin - EKG Interpretation by Me Additional EKG results interpreted by me: 01/19/19 12:20 Interpreted by myself 1114: Sinus bradycardia, rate 59, normal axis, no ectopy, new idioventricular conduction delay compared to 12/17/2018. No STEMI 01/19/19 13:11 1223: Sinus bradycardia, rate 52, normal axis, no ectopy, unchanged from initial EKG today Procedures - Ultrasound/Bedside Ultrasound/Bedside Time completed: 12:00 Notes: 01/19/19 13:13 Linear ultrasound probe used to place peripheral IV in right upper extremity. 2 attempts with the second attempt successful. Indication IV access. Area cleaned with ChloraPrep. 20-gauge catheter cannulated into right arm just proximal to right AC. Patient tolerated well. Secured in place with tape. Critical Care Note - Critical Care Note Total time excluding time spent on procedures (mins): 40 Comments: Critical care time 40 exclusive from separate billable procedures for a patient requiring complex medical decision making, and high potential for clinical deterioration. Time spent obtaining history from patient or surrogate, discussions with consultants, development of treatment plan with patient or s urrogate, evaluation of patient's response to treatment, examination of patient, ordering and performing treatments and interventions, ordering and review of laboratory studies, re-evaluation of patient's condition, ordering and review of radiographic studies and review of old charts Discharge - Discharge Clinical Impression: Hypoglycemia, Abnormal EKG, Elevated troponin Right upper lobe pneumonia Qualifiers: Pneumonia type: due to unspecified organism Qualified Code(s): J18.1 - Lobar pneumonia, unspecified organism Altered mental status Qualifiers: Altered mental status type: stupor Qualified Code(s): R40.1 - Stupor Condition: Stable Disposition: ADMITTED INPATIENT [facility] Referrals: YIMI ECHAVARRIA MD [Primary Care Provider] - Follow up as needed
[2019-01-19 11:18] LABS: ABSOLUTE EOSINOPHILS # (AUTO) 0.1 10^3/uL (0.0-0.6); ABSOLUTE MONOCYTES (AUTO) 1.1 10^3/uL (0.1-1.4); ABSOLUTE NEUT (AUTO) 6.8 10^3/uL (1.7-8.2); BASOPHILS % (AUTO) 0.5 % (0-2); EOSINOPHILS % (AUTO) 1.3 % (0-6); HEMATOCRIT 30.5 % (36.0-47.0); LYMPHOCYTES % (AUTO) 11.5 % (13-45); MEAN CORPUSCULAR HEMOGLOBIN 29.5 pg (27.0-33.4); MEAN CORPUSCULAR HGB CONC 32.9 g/dL (32.0-36.0); MEAN CORPUSCULAR VOLUME 90 fl (80-97); MONOCYTES % (AUTO) 12.2 % (3-13); PLATELET COUNT 170 10^3/uL (150-450); RED BLOOD COUNT 3.39 10^6/uL (3.72-5.28); RED CELL DISTRIBUTION WIDTH 16.4 % (11.5-14.0); SEGMENTED NEUTROPHILS % (AUTO) 74.5 % (42-78); TOTAL CELLS COUNTED % (AUTO) 100 %; WHITE BLOOD COUNT 9.1 10^3/uL (4.0-10.5)
[2019-01-19 11:36] LABS: ALANINE AMINOTRANSFERASE 23 U/L (9-52); ALBUMIN 3.3 g/dL (3.5-5.0); ALKALINE PHOSPHATASE 152 U/L (38-126); ANION GAP 6 (5-19); ASPARTATE AMINO TRANSFERASE 40 U/L (14-36); BILIRUBIN,DIRECT 0.3 mg/dL (0.0-0.4); BILIRUBIN,TOTAL 0.7 mg/dL (0.2-1.3); BLOOD UREA NITROGEN 38 mg/dL (7-20); CALCIUM 8.8 mg/dL (8.4-10.2); CARBON DIOXIDE 31 mmol/L (22-30); CHLORIDE 107 mmol/L (98-107); POTASSIUM 4.4 mmol/L (3.6-5.0); SODIUM 143.8 mmol/L (137-145); TOTAL PROTEIN 6.9 g/dL (6.3-8.2)
[2019-01-19 11:39] LABS: GLUCOSE 64 mg/dL (75-110)
--- NOTE | 2019-01-19 11:46 | RADIOLOGY REPORT (SQ) ---
EXAM DESCRIPTION: CHEST SINGLE VIEW COMPLETED DATE/TIME: 01/19/2019 11:37 am REASON FOR STUDY: shortness of breath COMPARISON: 12/26/2018 NUMBER OF VIEWS: One view. TECHNIQUE: Single frontal radiographic view of the chest acquired. LIMITATIONS: None. FINDINGS: LUNGS AND PLEURA: Diffuse interstitial pattern. More focal airspace disease in the right upper lobe. MEDIASTINUM AND HILAR STRUCTURES: Stable. HEART AND VASCULATURE: Cardiac enlargement. Vascular congestion. BONES: No acute findings. HARDWARE: None in the chest. OTHER: No other significant finding. IMPRESSION: Right upper lobe pneumonia. There is a background of pulmonary vascular congestion. TECHNICAL DOCUMENTATION: JOB ID: [id number] [employer] All Rights Reserved Reading location - IP/workstation name: [email or web address]
[2019-01-19] MEDS ORDERED: IPRATROPIUM/ALBUTEROL 0.5-2.5 MG/3 ML AMPUL NEB ONE (12:14)
[2019-01-19] MEDS ORDERED: AZITHROMYCIN INJ 500 MG VIAL IV ONE (12:16)
[2019-01-19] MEDS ORDERED: CEFTRIAXONE 1 GM/D5W RTU 1 GM/50 ML RTUPB IV ONE (12:16)
[2019-01-19 14:37] LABS: APPEARANCE,URINE CLOUDY; BILIRUBIN,URINE NEGATIVE (NEGATIVE); COLOR,URINE YELLOW; GLUCOSE, URINE NEGATIVE (NEGATIVE); KETONES,URINE NEGATIVE (NEGATIVE); LEUKOCYTE ESTERASE,URINE MODERATE (NEGATIVE); NITRITE,URINE NEGATIVE (NEGATIVE); PROTEIN,URINE >=500 mg/dL (NEGATIVE); URINE SPECIFIC GRAVITY 1.012; UROBILINOGEN,URINE NEGATIVE mg/dL (<2.0)
[2019-01-19 15:09] LABS: VENOUS BLOOD HCO3 31.7 mmol/L (20-32); VENOUS BLOOD PH 7.32 (7.30-7.42)
[2019-01-19 15:30] LABS: ARTERIAL BLOOD BASE EXCESS 3.5 mmol/L; ARTERIAL BLOOD H2CO3 1.63 mmol/L (1.05-1.35); ARTERIAL BLOOD HCO3 29.8 mmol/L (20-24); ARTERIAL BLOOD O2 SATURATION 96.1 % (94-98); ARTERIAL BLOOD PCO2 54.3 mmHg (35-45); ARTERIAL BLOOD PH 7.36 (7.35-7.45); ARTERIAL BLOOD PO2 87.2 mmHg (80-100); ARTERIAL BLOOD TOTAL CO2 31.5 mmol/L (21-25)
[2019-01-19 15:31] LABS: ARTERIAL BLOOD FIO2 3L
--- NOTE | 2019-01-19 15:42 | EKG REPORT ---
SEVERITY:- ABNORMAL ECG - SINUS RHYTHM IVCD, CONSIDER ATYPICAL LBBB : Confirmed by: Matthew Thomas MD 19-Jan-2019 15:41:28
--- NOTE | 2019-01-19 15:43 | EKG REPORT ---
SEVERITY:- ABNORMAL ECG - SINUS RHYTHM IVCD, CONSIDER ATYPICAL LBBB : Confirmed by: Matthew Thomas MD 19-Jan-2019 15:41:42
--- NOTE | 2019-01-19 16:13 | RADIOLOGY REPORT (SQ) ---
EXAM DESCRIPTION: CT CHEST WITHOUT COMPLETED DATE/TIME: 01/19/2019 3:56 pm REASON FOR STUDY: pneumonia COMPARISON: 12/20/2018 TECHNIQUE: CT scan performed of the chest without intravenous contrast. Images reviewed with lung, soft tissue and bone windows. Reconstructed coronal and sagittal MPR images reviewed. All images st ored on PACS. All CT scanners at this facility use dose modulation, iterative reconstruction, and/or weight based d osing when appropriate to reduce radiation dose to as low as reasonably achievable (ALARA). [facility]: Dose Right [facility]: CareDose [facility]: Dose Right [facility]: Teradose 4D [facility]: TradeCard RADIATION DOSE: CT Rad equipment meets quality standard of care and radiation dose reduction techniq ues were employed. CTDIvol: 19.3 mGy. DLP: 645 mGy-cm. mGy. LIMITATIONS: No technical limitations. FINDINGS: LUNGS AND PLEURA: Some areas are improved and some are worse. Increasing airspace disease in the right upper lobe. Improved aeration in the left upper lobe and left lower lobe. Dependent a telectasis right lower lobe. No large effusions. HILAR AND MEDIASTINAL STRUCTURES: No identified masses or abnormal nodes. No obvious aneurysm. HEART AND VASCULAR STRUCTURES: No aneurysm. No pericardial effusion. UPPER ABDOMEN: No significant findings. Limited exam. THYROID AND OTHER SOFT TISSUES: No masses. No adenopathy. BONES: No significant finding. HARDWARE: None in the chest. OTHER: No other significant findings. IMPRESSION: Shifting pattern of pneumonia with improvement left lung and some worsening in the right upper lobe. No evidence of cavitation. TECHNICAL DOCUMENTATION: JOB ID: [id number] Quality ID # [id number]: Final reports with documentation of one or more dose reduction techniques (e.g., Au tomated exposure control, adjustment of the mA and/or kV according to patient size, use of iterative reconstruction technique) 2010 [employer]- All Rights Reserved Reading location - IP/workstation name: [email or web address]
[2019-01-19] MEDS ORDERED: (PENDING PHARMACY ID) (Linagliptin [Tradjenta] 5 MG) PO SCH (17:00)
[2019-01-19] MEDS ORDERED: INSULIN GLARGINE HUM REC ANLOG 52 UNIT SQ SCH (17:00)
[2019-01-19] MEDS ORDERED: (PENDING PHARMACY ID) (Mirabegron [Myrbetriq] 50 MG) PO SCH (17:00)
[2019-01-19] MEDS ORDERED: (PENDING PHARMACY ID) (Metoprolol Succinate [Toprol Xl] 200 MG) PO SCH (17:00)
[2019-01-19] MEDS ORDERED: (PENDING PHARMACY ID) (Telmisartan [Telmisartan] 80 MG) PO SCH (17:00)
[2019-01-19] MEDS ORDERED: DEXTROSE 40% GEL 15 GM TUBE PO PRN (18:00)
[2019-01-19] MEDS ORDERED: DEXTROSE 50%-WATER SYRINGE 25 GM/50 ML DOSE IV PRN (18:00)
[2019-01-19] MEDS ORDERED: DEXTROSE 50%-WATER SYRINGE 12.5 GM/25 ML DOSE IV PRN (18:00)
[2019-01-19] MEDS ORDERED: GLUCAGON,HUMAN RECOMB 1 MG INJ IM PRN (18:00)
[2019-01-19] MEDS ORDERED: DEXTROSE 40% GEL 15 GM TUBE X 2 PO PRN (18:00)
[2019-01-19] MEDS: LEVOTHYROXINE SODIUM 0.15 MG TABLET PO SCH (18:11)
[2019-01-19] MEDS: NORMAL SALINE 1000 ML 1,000 ML IV PRN (18:15)
[2019-01-19] MEDS: FUROSEMIDE 20 MG TABLET PO SCH (18:16)
[2019-01-19] MEDS: HEPARIN SOD (PORCINE) 5,000 UNIT/ML 1 ML SYRINGE SUBCUT SCH ×2 (18:17→22:09)
[2019-01-19] MEDS: AMLODIPINE BESYLATE 5 MG TABLET PO SCH (18:17)
[2019-01-19 18:35] LABS: TROPONIN I 0.039 ng/mL
[2019-01-19] MEDS: PIPERACILLIN SODIUM/TAZOBACTAM 3.375 GM in NORMAL SALINE 100 ML IV SCH (19:09)
--- NOTE | 2019-01-19 19:10 | PDOC H&P ---
History of Present Illness Admission Date/PCP: 01/19/19 13:42 YIMI ECHAVARRIA MD History of Present Illness: ONDINA ENRIQUEZ is a 73 year old female,She came to the emergency room for leola luation of shortness of breath, the history was that patient was found sitting next to her bed minimally responsive when EMS arrived at her residence, the Accu-Chek was 23, she was given glucagon prior to arrival in the emergency room when she arrived she was on 2 L of oxygen the oxygen saturation was 80%.. She received 2 doses of glucagon when the oyjkv-vw-iumc glucose was 39 ultimately she was given 1 ampoule of 50% dextrose, chest x-ray was obtained that demonstrated right upper lobe pneumonia she was given IV Rocephin and azithromycin in the emergency room there was no fever or leukocytosis to suggest sepsis blood cultures were obtained in the emergency room. Patient was recently admitted to this hospital, she was discharged within the last 30 days, CAT scan of the chest without contrast was obtained it demonstrated increasing airspace disease in the right upper lobe, improved aeration in the left upper lobe and left lower lobe dependent atelectasis right lower lobe the impression was that there was shifting pattern of pneumonia with improvement in the left lung also worsening in the right upper lobe this suggest to me that she probably aspirated. Past Medical History Cardiac Medical History: Reports: Congestive Heart Failure, Hyperlipidema, Hypertension Pulmonary Medical History: Reports: Asthma, Chronic Obstructive Pulmonary Disease (COPD), Pneumonia Endocrine Medical History: Reports: Diabetes Mellitus Type 2, Hypothyroidism Renal/ Medical History: Reports: End Stage Renal Disease GI Medical History: Reports: Gastroesophageal Reflux Disease Musculoskeltal Medical History: Reports: Arthritis Psychiatric Medical History: Reports: Depression Hematology: Reports: Anemia Past Surgical History Past Surgical History: Reports: Cholecystectomy, Hysterectomy, Orthopedic Surgery - bilateral knee replacement Denies: Pacemaker Social History Smoking Status: Unknown if Ever Smoked Frequency of Alcohol Use: None Hx Recreational Drug Use: No Drugs: None Hx Prescription Drug Abuse: No - Advance Directive Resuscitation Status: Full Code Family History Family History: Reviewed & Not Pertinent Parental Family History Reviewed: Yes Children Family History Reviewed: Yes Sibling(s) Family History Reviewed.: Yes Medication/Allergy Home Medications: RX: Atorvastatin Calcium [Lipitor 20 mg Tablet] 20 mg PO QHS 08/04/18 RX: Duloxetine HCl [Cymbalta] 60 mg PO Q12 08/04/18 RX: Insulin Glargine,Hum.rec.anlog [Basaglar Soledadikpen U-100] 52 unit SQ QAM 08/04/18 RX: Levothyroxine Sodium 150 mcg PO Q6AM 08/04/18 RX: Linagliptin [Tradjenta] 5 mg PO QAM 08/04/18 RX: Metoprolol Succinate [Toprol Xl] 200 mg PO QAM 08/04/18 RX: Mirabegron [Myrbetriq] 50 mg PO QAM 08/04/18 RX: Montelukast Sodium [Singulair 10 mg Tablet] 10 mg PO QHS 08/04/18 RX: Omeprazole Magnesium [Prilosec Otc] 20 mg PO Q6AM 08/04/18 RX: Pregabalin [Lyrica] 150 mg PO Q12 08/04/18 RX: Budesonide/Formoterol Fumarate [Symbicort HFA 160-4.5 mcg Inhaler 6 gm] 2 puff IH Q12 #2 inhaler 08/11/18 RX: Amlodipine Besylate [Norvasc 5 mg Tablet] 10 mg PO QAM #90 12/30/18 RX: Furosemide [Lasix 20 mg Tablet] 20 mg PO DAILY 01/19/19 Telmisartan 80 mg PO DAILY 01/19/19 Allergies/Adverse Reactions: aspirin [Aspirin] Allergy (Verified 01/19/19 11:29) Edema, GI UPSET morphine [Morphine] Allergy (Verified 01/19/19 11:29) ANAPHYLAXSIS, Facial swelling Review of Systems ROS unobtainable: Due to mental status Physical Exam Vital Signs: Temp Pulse Resp BP Pulse Ox 97.5 F 60 18 190/77 H 98 01/19/19 16:37 01/19/19 16:41 01/19/19 16:37 01/19/19 16:41 01/19/19 16:41 Intake & Output 01/18/19 01/19/19 01/20/19 06:59 06:59 06:59 Intake Total 340 Output Total 700 Balance -360 Weight 150.7 kg General appearance: PRESENT: no acute distress, morbidly obese Eye exam: PRESENT: PERRLA Respiratory exam: PRESENT: rhonchi Cardiovascular exam: PRESENT: +S1, +S2 GI/Abdominal exam: PRESENT: soft Neurological exam: PRESENT: alert Results Laboratory Results: 01/19/19 10:45 01/19/19 14:45 01/19/19 01/19/19 01/19/19 10:45 10:45 10:45 WBC 9.1 RBC 3.39 L Hgb 10.0 L Hct 30.5 L MCV 90 MCH 29.5 MCHC 32.9 RDW 16.4 H Plt Count 170 Seg Neutrophils % 74.5 Lymphocytes % 11.5 L Monocytes % 12.2 Eosinophils % 1.3 Basophils % 0.5 Absolute Neutrophils 6.8 Absolute Lymphocytes 1.0 Absolute Monocytes 1.1 Absolute Eosinophils 0.1 Absolute Basophils 0.0 Carbonic Acid HCO3/H2CO3 Ratio ABG pH ABG pCO2 ABG pO2 ABG HCO3 ABG O2 Saturation ABG Base Excess VBG pH Cancelled VBG pCO2 Cancelled VBG HCO3 Cancelled VBG Base Excess Cancelled FiO2 Sodium 143.8 Potassium 4.4 Chloride 107 Carbon Dioxide 31 H Anion Gap 6 BUN 38 H Creatinine 1.83 H Est GFR ( Amer) 33 L Est GFR (Non-Af Amer) 27 L Glucose 64 L Lactic Acid Calcium 8.8 Total Bilirubin 0.7 AST 40 H ALT 23 Alkaline Phosphatase 152 H Total Protein 6.9 Albumin 3.3 L Urine Color Urine Appearance Urine pH Ur Specific [place] Urine Protein Urine Glucose (UA) Urine Ketones Urine Blood Urine Nitrite Ur Leukocyte Esterase Urine WBC (Auto) Urine RBC (Auto) 01/19/19 01/19/19 01/19/19 10:45 14:08 14:45 WBC RBC Hgb Hct MCV MCH MCHC RDW Plt Count Seg Neutrophils % Lymphocytes % Monocytes % Eosinophils % Basophils % Absolute Neutrophils Absolute Lymphocytes Absolute Monocytes Absolute Eosinophils Absolute Basophils Carbonic Acid HCO3/H2CO3 Ratio ABG pH ABG pCO2 ABG pO2 ABG HCO3 ABG O2 Saturation ABG Base Excess VBG pH 7.32 VBG pCO2 63.0 VBG HCO3 31.7 VBG Base Excess 4.0 FiO2 Sodium Potassium Chloride Carbon Dioxide Anion Gap BUN Creatinine Est GFR ( Amer) Est GFR (Non-Af Amer) Glucose Lactic Acid 0.6 L Calcium Total Bilirubin AST ALT Alkaline Phosphatase Total Protein Albumin Urine Color YELLOW Urine Appearance CLOUDY Urine pH 6.0 Ur Specific [place] 1.012 Urine Protein >=500 H Urine Glucose (UA) NEGATIVE Urine Ketones NEGATIVE Urine Blood NEGATIVE Urine Nitrite NEGATIVE Ur Leukocyte Esterase MODERATE H Urine WBC (Auto) 79 Urine RBC (Auto) 2 01/19/19 01/19/19 14:45 15:22 WBC RBC Hgb Hct MCV MCH MCHC RDW Plt Count Seg Neutrophils % Lymphocytes % Monocytes % Eosinophils % Basophils % Absolute Neutrophils Absolute Lymphocytes Absolute Monocytes Absolute Eosinophils Absolute Basophils Carbonic Acid 1.63 H HCO3/H2CO3 Ratio 18:1 ABG pH 7.36 ABG pCO2 54.3 H ABG pO2 87.2 ABG HCO3 29.8 H ABG O2 Saturation 96.1 ABG Base Excess 3.5 VBG pH VBG pCO2 VBG HCO3 VBG Base Excess FiO2 3L Sodium Potassium Chloride Carbon Dioxide Anion Gap BUN Creatinine Est GFR ( Amer) Est GFR (Non-Af Amer) Glucose 130 H Lactic Acid Calcium Total Bilirubin AST ALT Alkaline Phosphatase Total Protein Albumin Urine Color Urine Appearance Urine pH Ur Specific [place] Urine Protein Urine Glucose (UA) Urine Ketones Urine Blood Urine Nitrite Ur Leukocyte Esterase Urine WBC (Auto) Urine RBC (Auto) 01/19/19 01/19/19 01/19/19 10:45 14:45 17:54 Troponin I 0.044 0.043 0.039 NT-Pro-B Natriuret Pep 4190 H Impressions: Chest CT 01/19/19 00:00 IMPRESSION: Shifting pattern of pneumonia with improvement left lung and some worsening in the right upper lobe. No evidence of cavitation. Chest X-Ray 01/19/19 10:50 IMPRESSION: Right upper lobe pneumonia. There is a background of pulmonary vascular congestion. Assessment & Plan - Diagnosis (1) Aspiration pneumonia Qualifiers: Aspiration pneumonia type: unspecified Laterality: right Lung location: upper lobe of lung Qualified Code(s): J69.0 - Pneumonitis due to inhalation of food and vomit Is this a current diagnosis for this admission?: Yes Plan: The CAT scan of the chest pattern suggests aspiration pneumonia, the CT scan demonstrated improvement of infiltrate in the left lung, there is worsening of infiltrate in the right upper lobe this is probably from aspiration when she had hypoglycemic episode, with loss of airway protection.She will be treated with IV antibiotic with a broad-spectrum coverage including anaerobes gram-positive and gram-negative organisms, she was just recently discharged from this hospital within the last 30 days (2) Hypoglycemia Is this a current diagnosis for this admission?: Yes Plan: The hypoglycemia is most likely due to inadvertent use of insulin (3) Metabolic encephalopathy Is this a current diagnosis for this admission?: Yes (4) Mixed acid base balance disorder Is this a current diagnosis for this admission?: Yes
[2019-01-19] MEDS: INSULIN LISPRO 100 UNIT/ML 3 ML VIAL SUBCUT SCH (22:06)
[2019-01-19] MEDS: MONTELUKAST SODIUM 10 MG TABLET PO SCH (22:14)
[2019-01-19] MEDS: DULOXETINE HCL 30 MG CAPSULE.DR PO SCH (22:14)
[2019-01-19] MEDS: PREGABALIN 75 MG CAPSULE PO SCH (22:15)
[2019-01-19] MEDS: ATORVASTATIN CALCIUM 20 MG TABLET PO SCH (22:15)
[2019-01-20] MEDS: ACETAMINOPHEN 325 MG TABLET PO PRN ×2 (00:26→11:00)
[2019-01-20] MEDS: PIPERACILLIN SODIUM/TAZOBACTAM 3.375 GM in NORMAL SALINE 100 ML IV SCH ×4 (00:30→17:16)
[2019-01-20] MEDS: PANTOPRAZOLE SODIUM 20 MG TABLET.DR PO SCH (05:42)
[2019-01-20] MEDS: HEPARIN SOD (PORCINE) 5,000 UNIT/ML 1 ML SYRINGE SUBCUT SCH ×3 (05:42→21:37)
[2019-01-20] MEDS: LEVOTHYROXINE SODIUM 0.15 MG TABLET PO SCH (05:42)
[2019-01-20 06:04] LABS: ABSOLUTE EOSINOPHILS # (AUTO) 0.2 10^3/uL (0.0-0.6); ABSOLUTE LYMPHOCYTES (AUTO) 1.4 10^3/uL (0.5-4.7); ABSOLUTE NEUT (AUTO) 4.5 10^3/uL (1.7-8.2); BASOPHILS % (AUTO) 0.6 % (0-2); EOSINOPHILS % (AUTO) 2.4 % (0-6); HEMATOCRIT 23.5 % (36.0-47.0); LYMPHOCYTES % (AUTO) 19.2 % (13-45); MEAN CORPUSCULAR HEMOGLOBIN 29.5 pg (27.0-33.4); MEAN CORPUSCULAR HGB CONC 33.1 g/dL (32.0-36.0); MEAN CORPUSCULAR VOLUME 89 fl (80-97); MONOCYTES % (AUTO) 14.2 % (3-13); PLATELET COUNT 123 10^3/uL (150-450); RED BLOOD COUNT 2.63 10^6/uL (3.72-5.28); RED CELL DISTRIBUTION WIDTH 15.7 % (11.5-14.0); SEGMENTED NEUTROPHILS % (AUTO) 63.6 % (42-78); TOTAL CELLS COUNTED % (AUTO) 100 %; WHITE BLOOD COUNT 7.1 10^3/uL (4.0-10.5)
[2019-01-20 06:19] LABS: ALANINE AMINOTRANSFERASE 21 U/L (9-52); ALBUMIN 2.1 g/dL (3.5-5.0); ALKALINE PHOSPHATASE 103 U/L (38-126); ANION GAP 6 (5-19); ASPARTATE AMINO TRANSFERASE 27 U/L (14-36); BILIRUBIN,DIRECT 0.2 mg/dL (0.0-0.4); BILIRUBIN,TOTAL 0.5 mg/dL (0.2-1.3); BLOOD UREA NITROGEN 35 mg/dL (7-20); CALCIUM 7.5 mg/dL (8.4-10.2); CARBON DIOXIDE 29 mmol/L (22-30); CHLORIDE 107 mmol/L (98-107); GLUCOSE 125 mg/dL (75-110); POTASSIUM 4.2 mmol/L (3.6-5.0); SODIUM 142.3 mmol/L (137-145); TOTAL PROTEIN 4.7 g/dL (6.3-8.2)
[2019-01-20 07:40] LABS: HEMOGLOBIN 7.8 g/dL (12.0-15.5)
[2019-01-20] MEDS: PREGABALIN 75 MG CAPSULE PO SCH ×2 (10:54→21:43)
[2019-01-20] MEDS: LOSARTAN POTASSIUM 50 MG TABLET PO SCH (10:55)
[2019-01-20] MEDS: DULOXETINE HCL 30 MG CAPSULE.DR PO SCH ×2 (10:55→21:42)
[2019-01-20] MEDS: AMLODIPINE BESYLATE 5 MG TABLET PO SCH (10:55)
[2019-01-20] MEDS: SITAGLIPTIN PHOSPHATE 50 MG TABLET PO SCH (10:55)
[2019-01-20] MEDS: FUROSEMIDE 20 MG TABLET PO SCH (10:56)
[2019-01-20] MEDS: METOPROLOL SUCCINATE 50 MG TAB.SR.24H PO SCH (10:56)
[2019-01-20] MEDS: NORMAL SALINE 1000 ML 1,000 ML IV PRN (10:57)
[2019-01-20] MEDS: INSULIN LISPRO 100 UNIT/ML 3 ML VIAL SUBCUT SCH ×4 (16:45→21:38)
--- NOTE | 2019-01-20 20:40 | PDOC PROGRESS REPORT ---
Subjective Progress Note for:: 01/20/19 Subjective:: Patient was seen by the bedside, she was admitted yesterday for the management of aspiration pneumonia. I had a long discussion with patient's son about her condition Reason For Visit: ASPIRATION PNEUMONIA,T2DM,MORBID OBESITY, Physical Exam Vital Signs: Temp Pulse Resp BP Pulse Ox 98.7 F 66 20 185/70 H 98 01/20/19 19:40 01/20/19 19:40 01/20/19 19:40 01/20/19 19:40 01/20/19 19:40 Intake & Output 01/19/19 01/20/19 01/21/19 06:59 06:59 06:59 Intake Total 940 2945 Output Total 2325 600 Balance -1385 2345 Weight 156.1 kg General appearance: PRESENT: no acute distress Eye exam: PRESENT: PERRLA Respiratory exam: PRESENT: clear to auscultation carter Cardiovascular exam: PRESENT: +S1, +S2 GI/Abdominal exam: PRESENT: soft Neurological exam: PRESENT: alert Results Laboratory Results: 01/20/19 05:28 01/20/19 05:28 01/20/19 01/20/19 05:28 05:28 WBC 7.1 RBC 2.63 L Hgb 7.8 L D Hct 23.5 L MCV 89 MCH 29.5 MCHC 33.1 RDW 15.7 H Plt Count 123 L Seg Neutrophils % 63.6 Lymphocytes % 19.2 Monocytes % 14.2 H Eosinophils % 2.4 Basophils % 0.6 Absolute Neutrophils 4.5 Absolute Lymphocytes 1.4 Absolute Monocytes 1.0 Absolute Eosinophils 0.2 Absolute Basophils 0.0 Sodium 142.3 Potassium 4.2 Chloride 107 Carbon Dioxide 29 Anion Gap 6 BUN 35 H Creatinine 1.64 H Est GFR ( Amer) 37 L Est GFR (Non-Af Amer) 31 L Glucose 125 H Calcium 7.5 L Total Bilirubin 0.5 AST 27 ALT 21 Alkaline Phosphatase 103 Total Protein 4.7 L Albumin 2.1 L 01/19/19 01/19/19 01/19/19 10:45 14:45 17:54 CK-MB (CK-2) Troponin I 0.044 0.043 0.039 NT-Pro-B Natriuret Pep 4190 H 01/20/19 05:28 CK-MB (CK-2) 2.55 Troponin I NT-Pro-B Natriuret Pep Impressions: Chest CT 01/19/19 00:00 IMPRESSION: Shifting pattern of pneumonia with improvement left lung and some worsening in the right upper lobe. No evidence of cavitation. Chest X-Ray 01/19/19 10:50 IMPRESSION: Right upper lobe pneumonia. There is a background of pulmonary vascular congestion. Assessment & Plan - Diagnosis (1) Aspiration pneumonia Qualifiers: Aspiration pneumonia type: unspecified Laterality: right Lung location: upper lobe of lung Qualified Code(s): J69.0 - Pneumonitis due to inhalation of food and vomit Is this a current diagnosis for this admission?: Yes Plan: Continue IV antibiotic, discontinue IV infusion (2) Hypoglycemia Is this a current diagnosis for this admission?: Yes (3) Metabolic encephalopathy Is this a current diagnosis for this admission?: Yes (4) Mixed acid base balance disorder Is this a current diagnosis for this admission?: Yes
[2019-01-20] MEDS: ATORVASTATIN CALCIUM 20 MG TABLET PO SCH (21:43)
[2019-01-20] MEDS: MONTELUKAST SODIUM 10 MG TABLET PO SCH (21:43)
[2019-01-21] MEDS: HEPARIN SOD (PORCINE) 5,000 UNIT/ML 1 ML SYRINGE SUBCUT SCH ×3 (05:14→21:39)
[2019-01-21] MEDS: PIPERACILLIN SODIUM/TAZOBACTAM 3.375 GM in NORMAL SALINE 100 ML IV SCH ×5 (05:15→23:20)
[2019-01-21] MEDS: PANTOPRAZOLE SODIUM 20 MG TABLET.DR PO SCH (05:19)
[2019-01-21] MEDS: LEVOTHYROXINE SODIUM 0.15 MG TABLET PO SCH (05:19)
[2019-01-21 06:24] LABS: ABSOLUTE EOSINOPHILS # (AUTO) 0.3 10^3/uL (0.0-0.6); ABSOLUTE LYMPHOCYTES (AUTO) 1.5 10^3/uL (0.5-4.7); ABSOLUTE NEUT (AUTO) 4.3 10^3/uL (1.7-8.2); BASOPHILS % (AUTO) 0.6 % (0-2); EOSINOPHILS % (AUTO) 3.8 % (0-6); HEMATOCRIT 26.2 % (36.0-47.0); HEMOGLOBIN 8.6 g/dL (12.0-15.5); LYMPHOCYTES % (AUTO) 20.5 % (13-45); MEAN CORPUSCULAR HEMOGLOBIN 29.4 pg (27.0-33.4); MEAN CORPUSCULAR HGB CONC 32.7 g/dL (32.0-36.0); MEAN CORPUSCULAR VOLUME 90 fl (80-97); MONOCYTES % (AUTO) 14.5 % (3-13); PLATELET COUNT 140 10^3/uL (150-450); RED BLOOD COUNT 2.92 10^6/uL (3.72-5.28); RED CELL DISTRIBUTION WIDTH 16.1 % (11.5-14.0); SEGMENTED NEUTROPHILS % (AUTO) 60.6 % (42-78); TOTAL CELLS COUNTED % (AUTO) 100 %; WHITE BLOOD COUNT 7.1 10^3/uL (4.0-10.5)
[2019-01-21] MEDS: ACETAMINOPHEN 325 MG TABLET PO PRN ×2 (06:45→21:40)
[2019-01-21 07:00] LABS: ALANINE AMINOTRANSFERASE 22 U/L (9-52); ALBUMIN 2.5 g/dL (3.5-5.0); ALKALINE PHOSPHATASE 114 U/L (38-126); ASPARTATE AMINO TRANSFERASE 25 U/L (14-36); BILIRUBIN,DIRECT 0.3 mg/dL (0.0-0.4); BILIRUBIN,TOTAL 0.5 mg/dL (0.2-1.3); BLOOD UREA NITROGEN 39 mg/dL (7-20); CALCIUM 8.1 mg/dL (8.4-10.2); GLUCOSE 132 mg/dL (75-110); POTASSIUM 4.4 mmol/L (3.6-5.0); TOTAL PROTEIN 5.5 g/dL (6.3-8.2)
[2019-01-21 07:19] LABS: ANION GAP 6 (5-19); CARBON DIOXIDE 29 mmol/L (22-30); CHLORIDE 108 mmol/L (98-107); SODIUM 143.2 mmol/L (137-145)
[2019-01-21] MEDS: INSULIN LISPRO 100 UNIT/ML 3 ML VIAL SUBCUT SCH ×4 (09:03→21:39)
[2019-01-21] MEDS: SITAGLIPTIN PHOSPHATE 50 MG TABLET PO SCH (09:04)
[2019-01-21] MEDS: AMLODIPINE BESYLATE 5 MG TABLET PO SCH (09:04)
[2019-01-21] MEDS: METOPROLOL SUCCINATE 50 MG TAB.SR.24H PO SCH (09:04)
[2019-01-21] MEDS: LOSARTAN POTASSIUM 50 MG TABLET PO SCH (11:09)
[2019-01-21] MEDS: PREGABALIN 75 MG CAPSULE PO SCH ×2 (11:09→21:39)
[2019-01-21] MEDS: DULOXETINE HCL 30 MG CAPSULE.DR PO SCH ×2 (11:09→21:40)
[2019-01-21] MEDS: FUROSEMIDE 20 MG TABLET PO SCH (11:09)
--- NOTE | 2019-01-21 20:45 | PDOC PROGRESS REPORT ---
Subjective Progress Note for:: 01/21/19 Subjective:: Patient was seen by the bedside, she has aspiration pneumonia, I informed family about her condition Reason For Visit: ASPIRATION PNEUMONIA,T2DM,MORBID OBESITY, Physical Exam Vital Signs: Temp Pulse Resp BP Pulse Ox 98.0 F 65 18 161/49 H 100 01/21/19 17:00 01/21/19 19:00 01/21/19 17:00 01/21/19 17:00 01/21/19 17:00 Intake & Output 01/20/19 01/21/19 01/22/19 06:59 06:59 06:59 Intake Total 940 3495 750 Output Total 2325 1800 Balance -1385 1695 750 Weight 156.1 kg 160.2 kg General appearance: PRESENT: no acute distress Eye exam: PRESENT: PERRLA Respiratory exam: PRESENT: rhonchi Cardiovascular exam: PRESENT: +S1, +S2 GI/Abdominal exam: PRESENT: soft Neurological exam: PRESENT: alert Results Laboratory Results: 01/21/19 05:53 01/21/19 05:53 01/21/19 01/21/19 05:53 05:53 WBC 7.1 RBC 2.92 L Hgb 8.6 L Hct 26.2 L MCV 90 MCH 29.4 MCHC 32.7 RDW 16.1 H Plt Count 140 L Seg Neutrophils % 60.6 Lymphocytes % 20.5 Monocytes % 14.5 H Eosinophils % 3.8 Basophils % 0.6 Absolute Neutrophils 4.3 Absolute Lymphocytes 1.5 Absolute Monocytes 1.0 Absolute Eosinophils 0.3 Absolute Basophils 0.0 Sodium 143.2 Potassium 4.4 Chloride 108 H Carbon Dioxide 29 Anion Gap 6 BUN 39 H Creatinine 1.97 H Est GFR ( Amer) 30 L Est GFR (Non-Af Amer) 25 L Glucose 132 H Calcium 8.1 L Total Bilirubin 0.5 AST 25 ALT 22 Alkaline Phosphatase 114 Total Protein 5.5 L Albumin 2.5 L 01/19/19 14:08 Catheterized Urine Urine Culture - Final Escherichia Coli Esbl 01/19/19 01/19/19 01/19/19 10:45 14:45 17:54 CK-MB (CK-2) Troponin I 0.044 0.043 0.039 NT-Pro-B Natriuret Pep 4190 H 01/20/19 05:28 CK-MB (CK-2) 2.55 Troponin I NT-Pro-B Natriuret Pep Impressions: Chest CT 01/19/19 00:00 IMPRESSION: Shifting pattern of pneumonia with improvement left lung and some worsening in the right upper lobe. No evidence of cavitation. Chest X-Ray 01/19/19 10:50 IMPRESSION: Right upper lobe pneumonia. There is a background of pulmonary vascular congestion. Assessment & Plan - Diagnosis (1) Aspiration pneumonia Qualifiers: Aspiration pneumonia type: unspecified Laterality: right Lung location: upper lobe of lung Qualified Code(s): J69.0 - Pneumonitis due to inhalation of food and vomit Is this a current diagnosis for this admission?: Yes Plan: Continue IV antibiotic, (2) Hypoglycemia Is this a current diagnosis for this admission?: Yes (3) Metabolic encephalopathy Is this a current diagnosis for this admission?: Yes (4) Mixed acid base balance disorder Is this a current diagnosis for this admission?: Yes
[2019-01-21] MEDS: MONTELUKAST SODIUM 10 MG TABLET PO SCH (21:40)
[2019-01-21] MEDS: ATORVASTATIN CALCIUM 20 MG TABLET PO SCH (21:40)
[2019-01-22] MEDS: PANTOPRAZOLE SODIUM 20 MG TABLET.DR PO SCH (05:33)
[2019-01-22] MEDS: HEPARIN SOD (PORCINE) 5,000 UNIT/ML 1 ML SYRINGE SUBCUT SCH ×3 (05:33→21:26)
[2019-01-22] MEDS: LEVOTHYROXINE SODIUM 0.15 MG TABLET PO SCH (05:33)
[2019-01-22] MEDS: PIPERACILLIN SODIUM/TAZOBACTAM 3.375 GM in NORMAL SALINE 100 ML IV SCH ×4 (05:33→23:00)
[2019-01-22 08:02] LABS: ABSOLUTE BASOPHILS # (AUTO) 0.1 10^3/uL (0.0-0.2); ABSOLUTE EOSINOPHILS # (AUTO) 0.3 10^3/uL (0.0-0.6); ABSOLUTE LYMPHOCYTES (AUTO) 1.3 10^3/uL (0.5-4.7); ABSOLUTE MONOCYTES (AUTO) 0.8 10^3/uL (0.1-1.4); ABSOLUTE NEUT (AUTO) 3.6 10^3/uL (1.7-8.2); BASOPHILS % (AUTO) 0.8 % (0-2); EOSINOPHILS % (AUTO) 4.8 % (0-6); HEMATOCRIT 25.9 % (36.0-47.0); HEMOGLOBIN 8.5 g/dL (12.0-15.5); LYMPHOCYTES % (AUTO) 21.2 % (13-45); MEAN CORPUSCULAR HEMOGLOBIN 29.5 pg (27.0-33.4); MEAN CORPUSCULAR HGB CONC 32.9 g/dL (32.0-36.0); MEAN CORPUSCULAR VOLUME 90 fl (80-97); PLATELET COUNT 145 10^3/uL (150-450); RED BLOOD COUNT 2.89 10^6/uL (3.72-5.28); RED CELL DISTRIBUTION WIDTH 15.9 % (11.5-14.0); SEGMENTED NEUTROPHILS % (AUTO) 59.2 % (42-78); TOTAL CELLS COUNTED % (AUTO) 100 %
[2019-01-22 08:13] LABS: ALANINE AMINOTRANSFERASE 21 U/L (9-52); ALBUMIN 2.5 g/dL (3.5-5.0); ALKALINE PHOSPHATASE 109 U/L (38-126); ASPARTATE AMINO TRANSFERASE 21 U/L (14-36); BILIRUBIN,DIRECT 0.3 mg/dL (0.0-0.4); BILIRUBIN,TOTAL 0.4 mg/dL (0.2-1.3); BLOOD UREA NITROGEN 36 mg/dL (7-20); CALCIUM 8.2 mg/dL (8.4-10.2); GLUCOSE 113 mg/dL (75-110); POTASSIUM 4.3 mmol/L (3.6-5.0); TOTAL PROTEIN 5.5 g/dL (6.3-8.2)
[2019-01-22 08:19] LABS: ANION GAP 4 (5-19); CARBON DIOXIDE 32 mmol/L (22-30); CHLORIDE 108 mmol/L (98-107); SODIUM 144.2 mmol/L (137-145)
[2019-01-22] MEDS: INSULIN LISPRO 100 UNIT/ML 3 ML VIAL SUBCUT SCH ×4 (08:25→22:03)
[2019-01-22] MEDS: AMLODIPINE BESYLATE 5 MG TABLET PO SCH (10:43)
[2019-01-22] MEDS: DULOXETINE HCL 30 MG CAPSULE.DR PO SCH ×2 (10:43→21:26)
[2019-01-22] MEDS: FUROSEMIDE 20 MG TABLET PO SCH (10:44)
[2019-01-22] MEDS: SITAGLIPTIN PHOSPHATE 50 MG TABLET PO SCH (10:44)
[2019-01-22] MEDS: LOSARTAN POTASSIUM 50 MG TABLET PO SCH (10:44)
[2019-01-22] MEDS: METOPROLOL SUCCINATE 50 MG TAB.SR.24H PO SCH (10:44)
[2019-01-22] MEDS: PREGABALIN 75 MG CAPSULE PO SCH ×2 (10:44→21:26)
--- NOTE | 2019-01-22 15:09 | PDOC PROGRESS REPORT ---
Subjective Progress Note for:: 01/22/19 Subjective:: Patient seen by the bedside, she has ESBL E. coli UTI, the bacteria is sensitive to Zosyn, patient already on Zosyn for the management of aspiration pneumonia Reason For Visit: ASPIRATION PNEUMONIA,T2DM,MORBID OBESITY, Physical Exam Vital Signs: Temp Pulse Resp BP Pulse Ox 97.4 F 58 L 20 182/72 H 100 01/22/19 11:56 01/22/19 11:56 01/22/19 11:56 01/22/19 11:56 01/22/19 11:56 Intake & Output 01/21/19 01/22/19 01/23/19 06:59 06:59 06:59 Intake Total 3495 1180 820 Output Total 1800 1775 800 Balance 1695 -595 20 Weight 160.2 kg 158.2 kg General appearance: PRESENT: no acute distress Eye exam: PRESENT: PERRLA Respiratory exam: PRESENT: rhonchi Cardiovascular exam: PRESENT: +S1, +S2 GI/Abdominal exam: PRESENT: soft Neurological exam: PRESENT: alert Results Laboratory Results: 01/22/19 07:37 01/22/19 07:37 01/22/19 01/22/19 01/22/19 05:35 05:35 07:37 WBC Cancelled 6.0 RBC Cancelled 2.89 L Hgb Cancelled 8.5 L Hct Cancelled 25.9 L MCV Cancelled 90 MCH Cancelled 29.5 MCHC Cancelled 32.9 RDW Cancelled 15.9 H Plt Count Cancelled 145 L Seg Neutrophils % Cancelled 59.2 Lymphocytes % Cancelled 21.2 Monocytes % Cancelled 14.0 H Eosinophils % Cancelled 4.8 Basophils % Cancelled 0.8 Absolute Neutrophils Cancelled 3.6 Absolute Lymphocytes Cancelled 1.3 Absolute Monocytes Cancelled 0.8 Absolute Eosinophils Cancelled 0.3 Absolute Basophils Cancelled 0.1 Sodium Cancelled Potassium Cancelled Chloride Cancelled Carbon Dioxide Cancelled Anion Gap Cancelled BUN Cancelled Creatinine Cancelled Est GFR ( Amer) Cancelled Est GFR (Non-Af Amer) Cancelled Glucose Cancelled Calcium Cancelled Total Bilirubin Cancelled AST Cancelled ALT Cancelled Alkaline Phosphatase Cancelled Total Protein Cancelled Albumin Cancelled 01/22/19 07:37 WBC RBC Hgb Hct MCV MCH MCHC RDW Plt Count Seg Neutrophils % Lymphocytes % Monocytes % Eosinophils % Basophils % Absolute Neutrophils Absolute Lymphocytes Absolute Monocytes Absolute Eosinophils Absolute Basophils Sodium 144.2 Potassium 4.3 Chloride 108 H Carbon Dioxide 32 H Anion Gap 4 L BUN 36 H Creatinine 2.05 H Est GFR ( Amer) 29 L Est GFR (Non-Af Amer) 24 L Glucose 113 H Calcium 8.2 L Total Bilirubin 0.4 AST 21 ALT 21 Alkaline Phosphatase 109 Total Protein 5.5 L Albumin 2.5 L 01/19/19 01/19/19 01/19/19 10:45 14:45 17:54 CK-MB (CK-2) Troponin I 0.044 0.043 0.039 NT-Pro-B Natriuret Pep 4190 H 01/20/19 05:28 CK-MB (CK-2) 2.55 Troponin I NT-Pro-B Natriuret Pep Impressions: Chest CT 01/19/19 00:00 IMPRESSION: Shifting pattern of pneumonia with improvement left lung and some worsening in the right upper lobe. No evidence of cavitation. Chest X-Ray 01/19/19 10:50 IMPRESSION: Right upper lobe pneumonia. There is a background of pulmonary vascular congestion. Assessment & Plan - Diagnosis (1) Aspiration pneumonia Qualifiers: Aspiration pneumonia type: unspecified Laterality: right Lung location: upper lobe of lung Qualified Code(s): J69.0 - Pneumonitis due to inhalation of food and vomit Is this a current diagnosis for this admission?: Yes Plan: Continue IV antibiotic, (2) Hypoglycemia Is this a current diagnosis for this admission?: Yes (3) Metabolic encephalopathy Is this a current diagnosis for this admission?: Yes (4) Mixed acid base balance disorder Is this a current diagnosis for this admission?: Yes (5) UTI due to extended-spectrum beta lactamase (ESBL) producing Escherichia coli Is this a current diagnosis for this admission?: Yes Plan: Continue IV antibiotic
[2019-01-22] MEDS: MONTELUKAST SODIUM 10 MG TABLET PO SCH (21:26)
[2019-01-22] MEDS: ATORVASTATIN CALCIUM 20 MG TABLET PO SCH (21:26)
[2019-01-22] MEDS: ACETAMINOPHEN 325 MG TABLET PO PRN (21:27)
[2019-01-23] MEDS: PIPERACILLIN SODIUM/TAZOBACTAM 3.375 GM in NORMAL SALINE 100 ML IV SCH ×3 (05:07→17:56)
[2019-01-23] MEDS: HEPARIN SOD (PORCINE) 5,000 UNIT/ML 1 ML SYRINGE SUBCUT SCH ×3 (05:07→22:56)
[2019-01-23] MEDS: PANTOPRAZOLE SODIUM 20 MG TABLET.DR PO SCH (05:07)
[2019-01-23] MEDS: LEVOTHYROXINE SODIUM 0.15 MG TABLET PO SCH (05:07)
[2019-01-23] MEDS: ACETAMINOPHEN 325 MG TABLET PO PRN (05:35)
[2019-01-23] MEDS: INSULIN LISPRO 100 UNIT/ML 3 ML VIAL SUBCUT SCH ×4 (08:19→22:47)
[2019-01-23] MEDS: PREGABALIN 75 MG CAPSULE PO SCH ×2 (10:59→22:46)
[2019-01-23] MEDS: AMLODIPINE BESYLATE 5 MG TABLET PO SCH (10:59)
[2019-01-23] MEDS: SITAGLIPTIN PHOSPHATE 50 MG TABLET PO SCH (10:59)
[2019-01-23] MEDS: FUROSEMIDE 20 MG TABLET PO SCH (11:00)
[2019-01-23] MEDS: METOPROLOL SUCCINATE 50 MG TAB.SR.24H PO SCH (11:00)
[2019-01-23] MEDS: LOSARTAN POTASSIUM 50 MG TABLET PO SCH (11:00)
[2019-01-23] MEDS: DULOXETINE HCL 30 MG CAPSULE.DR PO SCH ×2 (11:00→22:46)
--- NOTE | 2019-01-23 14:01 | PDOC PROGRESS REPORT ---
Subjective Progress Note for:: 01/23/19 Subjective:: Patient seen by the bedside, family in the room, discussed results of urine culture with patient family Reason For Visit: ASPIRATION PNEUMONIA,T2DM,MORBID OBESITY, Physical Exam Vital Signs: Temp Pulse Resp BP Pulse Ox 97.7 F 57 L 22 H 192/67 H 99 01/23/19 07:18 01/23/19 07:18 01/23/19 07:18 01/23/19 07:18 01/23/19 07:18 Intake & Output 01/22/19 01/23/19 01/24/19 06:59 06:59 06:59 Intake Total 1180 1460 Output Total 1775 2625 Balance -595 -1165 Weight 158.2 kg 159 kg General appearance: PRESENT: no acute distress Eye exam: PRESENT: PERRLA Respiratory exam: PRESENT: clear to auscultation carter Cardiovascular exam: PRESENT: +S1, +S2 GI/Abdominal exam: PRESENT: soft Neurological exam: PRESENT: alert Results Laboratory Results: 01/22/19 07:37 01/22/19 07:37 01/19/19 01/19/19 01/19/19 10:45 14:45 17:54 CK-MB (CK-2) Troponin I 0.044 0.043 0.039 NT-Pro-B Natriuret Pep 4190 H 01/20/19 05:28 CK-MB (CK-2) 2.55 Troponin I NT-Pro-B Natriuret Pep Impressions: Chest CT 01/19/19 00:00 IMPRESSION: Shifting pattern of pneumonia with improvement left lung and some worsening in the right upper lobe. No evidence of cavitation. Chest X-Ray 01/19/19 10:50 IMPRESSION: Right upper lobe pneumonia. There is a background of pulmonary vascular congestion. Assessment & Plan - Diagnosis (1) Aspiration pneumonia Qualifiers: Aspiration pneumonia type: unspecified Laterality: right Lung location: upper lobe of lung Qualified Code(s): J69.0 - Pneumonitis due to inhalation of food and vomit Is this a current diagnosis for this admission?: Yes Plan: Continue Zosyn (2) Hypoglycemia Is this a current diagnosis for this admission?: Yes (3) Metabolic encephalopathy Is this a current diagnosis for this admission?: Yes (4) Mixed acid base balance disorder Is this a current diagnosis for this admission?: Yes (5) UTI due to extended-spectrum beta lactamase (ESBL) producing Escherichia coli Is this a current diagnosis for this admission?: Yes Plan: Typically ESBL E. coli are sensitive to Carbapenem class of antibiotic but based on the antibiotic sensitivity this ESBL E. coli is sensitive to Zosyn
[2019-01-23] MEDS: ATORVASTATIN CALCIUM 20 MG TABLET PO SCH (22:46)
[2019-01-23] MEDS: MONTELUKAST SODIUM 10 MG TABLET PO SCH (22:46)
[2019-01-24] MEDS: PIPERACILLIN SODIUM/TAZOBACTAM 3.375 GM in NORMAL SALINE 100 ML IV SCH ×5 (00:46→23:00)
[2019-01-24] MEDS: HEPARIN SOD (PORCINE) 5,000 UNIT/ML 1 ML SYRINGE SUBCUT SCH ×3 (07:22→21:18)
[2019-01-24] MEDS: PANTOPRAZOLE SODIUM 20 MG TABLET.DR PO SCH (07:22)
[2019-01-24] MEDS: LEVOTHYROXINE SODIUM 0.15 MG TABLET PO SCH (07:22)
[2019-01-24] MEDS: PREGABALIN 75 MG CAPSULE PO SCH ×2 (11:00→21:23)
[2019-01-24] MEDS: SITAGLIPTIN PHOSPHATE 50 MG TABLET PO SCH (11:00)
[2019-01-24] MEDS: FUROSEMIDE 20 MG TABLET PO SCH (11:00)
[2019-01-24] MEDS: METOPROLOL SUCCINATE 50 MG TAB.SR.24H PO SCH (11:00)
[2019-01-24] MEDS: DULOXETINE HCL 30 MG CAPSULE.DR PO SCH ×2 (11:00→21:23)
[2019-01-24] MEDS: AMLODIPINE BESYLATE 5 MG TABLET PO SCH (11:00)
[2019-01-24] MEDS: LOSARTAN POTASSIUM 50 MG TABLET PO SCH (11:00)
[2019-01-24] MEDS: INSULIN LISPRO 100 UNIT/ML 3 ML VIAL SUBCUT SCH ×4 (11:00→21:43)
[2019-01-24] MEDS ORDERED: IPRATROPIUM/ALBUTEROL 0.5-2.5 MG/3 ML AMPUL NEB PRN (19:18)
[2019-01-24] MEDS: ATORVASTATIN CALCIUM 20 MG TABLET PO SCH (21:23)
[2019-01-24] MEDS: MONTELUKAST SODIUM 10 MG TABLET PO SCH (21:23)
--- NOTE | 2019-01-24 21:52 | PDOC PROGRESS REPORT ---
Subjective Progress Note for:: 01/24/19 Subjective:: Patient seen by the bedside,She has asthma ,she is wheezing Reason For Visit: ASPIRATION PNEUMONIA,T2DM,MORBID OBESITY, Physical Exam Vital Signs: Temp Pulse Resp BP Pulse Ox 97.6 F 57 L 20 165/69 H 100 01/24/19 20:36 01/24/19 20:36 01/24/19 20:36 01/24/19 20:51 01/24/19 20:36 Intake & Output 01/23/19 01/24/19 01/25/19 06:59 06:59 06:59 Intake Total 1460 1198 1040 Output Total 2625 1700 900 Balance -1165 -502 140 Weight 159 kg 156.6 kg General appearance: PRESENT: no acute distress Eye exam: PRESENT: PERRLA Respiratory exam: PRESENT: wheezes Cardiovascular exam: PRESENT: +S1, +S2 GI/Abdominal exam: PRESENT: soft Neurological exam: PRESENT: alert, CN II-XII grossly intact Results Laboratory Results: 01/22/19 07:37 01/22/19 07:37 01/19/19 14:45 Blood Blood Culture - Final NO GROWTH IN 5 DAYS 01/19/19 01/19/19 01/19/19 10:45 14:45 17:54 CK-MB (CK-2) Troponin I 0.044 0.043 0.039 NT-Pro-B Natriuret Pep 4190 H 01/20/19 05:28 CK-MB (CK-2) 2.55 Troponin I NT-Pro-B Natriuret Pep Impressions: Chest CT 01/19/19 00:00 IMPRESSION: Shifting pattern of pneumonia with improvement left lung and some worsening in the right upper lobe. No evidence of cavitation. Chest X-Ray 01/19/19 10:50 IMPRESSION: Right upper lobe pneumonia. There is a background of pulmonary vascular congestion. Assessment & Plan - Diagnosis (1) Aspiration pneumonia Qualifiers: Aspiration pneumonia type: unspecified Laterality: right Lung location: upper lobe of lung Qualified Code(s): J69.0 - Pneumonitis due to inhalation of food and vomit Is this a current diagnosis for this admission?: Yes Plan: Continue IV antibiotic (2) Hypoglycemia Is this a current diagnosis for this admission?: Yes (3) Metabolic encephalopathy Is this a current diagnosis for this admission?: Yes (4) Mixed acid base balance disorder Is this a current diagnosis for this admission?: Yes (5) UTI due to extended-spectrum beta lactamase (ESBL) producing Escherichia coli Is this a current diagnosis for this admission?: Yes (6) Severe persistent asthma with (acute) exacerbation Is this a current diagnosis for this admission?: Yes Plan: Treat with bronchodilators
[2019-01-25] MEDS: ACETAMINOPHEN 325 MG TABLET PO PRN (00:52)
[2019-01-25] MEDS: HEPARIN SOD (PORCINE) 5,000 UNIT/ML 1 ML SYRINGE SUBCUT SCH ×3 (05:02→21:04)
[2019-01-25] MEDS: PANTOPRAZOLE SODIUM 20 MG TABLET.DR PO SCH (05:08)
[2019-01-25] MEDS: LEVOTHYROXINE SODIUM 0.15 MG TABLET PO SCH (05:08)
[2019-01-25] MEDS: PIPERACILLIN SODIUM/TAZOBACTAM 3.375 GM in NORMAL SALINE 100 ML IV SCH ×4 (05:11→23:04)
[2019-01-25] MEDS: INSULIN LISPRO 100 UNIT/ML 3 ML VIAL SUBCUT SCH ×4 (08:07→21:26)
[2019-01-25] MEDS: METOPROLOL SUCCINATE 50 MG TAB.SR.24H PO SCH (08:38)
[2019-01-25] MEDS: AMLODIPINE BESYLATE 5 MG TABLET PO SCH (08:38)
[2019-01-25] MEDS: SITAGLIPTIN PHOSPHATE 50 MG TABLET PO SCH (08:38)
[2019-01-25] MEDS: LOSARTAN POTASSIUM 50 MG TABLET PO SCH (09:31)
[2019-01-25] MEDS: DULOXETINE HCL 30 MG CAPSULE.DR PO SCH ×2 (09:31→21:08)
[2019-01-25] MEDS: PREGABALIN 75 MG CAPSULE PO SCH ×2 (09:31→21:08)
[2019-01-25] MEDS: FUROSEMIDE 20 MG TABLET PO SCH (09:31)
[2019-01-25] MEDS: MONTELUKAST SODIUM 10 MG TABLET PO SCH (21:08)
[2019-01-25] MEDS: ATORVASTATIN CALCIUM 20 MG TABLET PO SCH (21:08)
[2019-01-25] MEDS ORDERED: MAG HYDROX/AL HYDROX/SIMETH SUSP 30 ML UDCUP PO PRN (23:49)
[2019-01-26] MEDS ORDERED: PIPERACILLIN SODIUM/TAZOBACTAM 3.375 GM in NORMAL SALINE 100 ML IV SCH ×2
[2019-01-26] MEDS: HEPARIN SOD (PORCINE) 5,000 UNIT/ML 1 ML SYRINGE SUBCUT SCH ×3 (05:10→22:01)
[2019-01-26] MEDS: LEVOTHYROXINE SODIUM 0.15 MG TABLET PO SCH (05:18)
[2019-01-26] MEDS: PIPERACILLIN SODIUM/TAZOBACTAM 3.375 GM in NORMAL SALINE 100 ML IV SCH ×4 (05:18→23:25)
[2019-01-26] MEDS: PANTOPRAZOLE SODIUM 20 MG TABLET.DR PO SCH (05:18)
[2019-01-26] MEDS: AMLODIPINE BESYLATE 5 MG TABLET PO SCH (07:24)
[2019-01-26] MEDS: ACETAMINOPHEN 325 MG TABLET PO PRN (07:25)
[2019-01-26] MEDS: SITAGLIPTIN PHOSPHATE 50 MG TABLET PO SCH (07:25)
[2019-01-26] MEDS: METOPROLOL SUCCINATE 50 MG TAB.SR.24H PO SCH (07:25)
[2019-01-26] MEDS: INSULIN LISPRO 100 UNIT/ML 3 ML VIAL SUBCUT SCH ×4 (07:29→22:05)
[2019-01-26] MEDS: PREGABALIN 75 MG CAPSULE PO SCH ×2 (10:07→22:04)
[2019-01-26] MEDS: FUROSEMIDE 20 MG TABLET PO SCH (10:07)
[2019-01-26] MEDS: LOSARTAN POTASSIUM 50 MG TABLET PO SCH (10:07)
[2019-01-26] MEDS: DULOXETINE HCL 30 MG CAPSULE.DR PO SCH ×2 (10:07→22:04)
--- NOTE | 2019-01-26 15:04 | PDOC PROGRESS REPORT ---
Subjective Progress Note for:: 01/26/19 Subjective:: Patient seen by the bedside, she was admitted for the management of aspiration pneumonia, ESBL E. coli UTI, she was confused earlier today Reason For Visit: ASPIRATION PNEUMONIA,T2DM,MORBID OBESITY, Physical Exam Vital Signs: Temp Pulse Resp BP Pulse Ox 97.9 F 59 L 12 149/58 H 99 01/26/19 11:26 01/26/19 14:00 01/26/19 11:26 01/26/19 11:26 01/26/19 11:26 Intake & Output 01/25/19 01/26/19 01/27/19 06:59 06:59 06:59 Intake Total 1480 1375 340 Output Total 3275 2750 400 Balance -1795 -1375 -60 Weight 154.7 kg 145.8 kg General appearance: PRESENT: no acute distress Eye exam: PRESENT: PERRLA Cardiovascular exam: PRESENT: +S1, +S2 GI/Abdominal exam: PRESENT: soft Neurological exam: PRESENT: alert Results Laboratory Results: 01/22/19 07:37 01/22/19 07:37 01/19/19 10:45 Blood Blood Culture - Final Streptococcus Salivarius Strep Anginosus Group 01/19/19 01/19/19 01/19/19 10:45 14:45 17:54 CK-MB (CK-2) Troponin I 0.044 0.043 0.039 NT-Pro-B Natriuret Pep 4190 H 01/20/19 05:28 CK-MB (CK-2) 2.55 Troponin I NT-Pro-B Natriuret Pep Impressions: Chest CT 01/19/19 00:00 IMPRESSION: Shifting pattern of pneumonia with improvement left lung and some worsening in the right upper lobe. No evidence of cavitation. Chest X-Ray 01/19/19 10:50 IMPRESSION: Right upper lobe pneumonia. There is a background of pulmonary vascular congestion. Assessment & Plan - Diagnosis (1) Aspiration pneumonia Qualifiers: Aspiration pneumonia type: unspecified Laterality: right Lung location: upper lobe of lung Qualified Code(s): J69.0 - Pneumonitis due to inhalation of food and vomit Is this a current diagnosis for this admission?: Yes Plan: Continue IV antibiotic (2) Hypoglycemia Is this a current diagnosis for this admission?: Yes (3) Metabolic encephalopathy Is this a current diagnosis for this admission?: Yes (4) Mixed acid base balance disorder Is this a current diagnosis for this admission?: Yes (5) UTI due to extended-spectrum beta lactamase (ESBL) producing Escherichia coli Is this a current diagnosis for this admission?: Yes Plan: Typically ESBL E. coli are sensitive to Carbapenem class of antibiotic but based on the antibiotic sensitivity this ESBL E. coli is sensitive to Zosyn (6) Severe persistent asthma with (acute) exacerbation Is this a current diagnosis for this admission?: Yes
[2019-01-26] MEDS: ATORVASTATIN CALCIUM 20 MG TABLET PO SCH (22:04)
[2019-01-26] MEDS: MONTELUKAST SODIUM 10 MG TABLET PO SCH (22:04)
[2019-01-27] MEDS: HEPARIN SOD (PORCINE) 5,000 UNIT/ML 1 ML SYRINGE SUBCUT SCH ×3 (05:28→22:22)
[2019-01-27] MEDS: PIPERACILLIN SODIUM/TAZOBACTAM 3.375 GM in NORMAL SALINE 100 ML IV SCH ×3 (05:29→18:24)
[2019-01-27] MEDS: PANTOPRAZOLE SODIUM 20 MG TABLET.DR PO SCH (05:29)
[2019-01-27] MEDS: LEVOTHYROXINE SODIUM 0.15 MG TABLET PO SCH (05:29)
[2019-01-27] MEDS: INSULIN LISPRO 100 UNIT/ML 3 ML VIAL SUBCUT SCH ×4 (08:17→22:21)
[2019-01-27] MEDS: SITAGLIPTIN PHOSPHATE 50 MG TABLET PO SCH (09:36)
[2019-01-27] MEDS: METOPROLOL SUCCINATE 50 MG TAB.SR.24H PO SCH (09:36)
[2019-01-27] MEDS: PREGABALIN 75 MG CAPSULE PO SCH ×2 (09:36→22:21)
[2019-01-27] MEDS: DULOXETINE HCL 30 MG CAPSULE.DR PO SCH ×2 (09:36→22:21)
[2019-01-27] MEDS: LOSARTAN POTASSIUM 50 MG TABLET PO SCH (09:36)
[2019-01-27] MEDS: AMLODIPINE BESYLATE 5 MG TABLET PO SCH (09:36)
[2019-01-27] MEDS: FUROSEMIDE 20 MG TABLET PO SCH (09:37)
[2019-01-27 14:10] LABS: ABSOLUTE EOSINOPHILS # (AUTO) 0.3 10^3/uL (0.0-0.6); ABSOLUTE LYMPHOCYTES (AUTO) 1.4 10^3/uL (0.5-4.7); ABSOLUTE MONOCYTES (AUTO) 0.8 10^3/uL (0.1-1.4); ABSOLUTE NEUT (AUTO) 4.6 10^3/uL (1.7-8.2); BASOPHILS % (AUTO) 0.7 % (0-2); EOSINOPHILS % (AUTO) 4.6 % (0-6); HEMATOCRIT 28.7 % (36.0-47.0); HEMOGLOBIN 9.4 g/dL (12.0-15.5); LYMPHOCYTES % (AUTO) 19.1 % (13-45); MEAN CORPUSCULAR HEMOGLOBIN 29.5 pg (27.0-33.4); MEAN CORPUSCULAR HGB CONC 32.7 g/dL (32.0-36.0); MEAN CORPUSCULAR VOLUME 90 fl (80-97); MONOCYTES % (AUTO) 11.1 % (3-13); PLATELET COUNT 170 10^3/uL (150-450); RED BLOOD COUNT 3.19 10^6/uL (3.72-5.28); RED CELL DISTRIBUTION WIDTH 15.5 % (11.5-14.0); SEGMENTED NEUTROPHILS % (AUTO) 64.5 % (42-78); TOTAL CELLS COUNTED % (AUTO) 100 %; WHITE BLOOD COUNT 7.1 10^3/uL (4.0-10.5)
[2019-01-27 14:23] LABS: ALANINE AMINOTRANSFERASE 20 U/L (9-52); ALBUMIN 2.7 g/dL (3.5-5.0); ALKALINE PHOSPHATASE 131 U/L (38-126); ASPARTATE AMINO TRANSFERASE 28 U/L (14-36); BILIRUBIN,DIRECT 0.2 mg/dL (0.0-0.4); BILIRUBIN,TOTAL 0.3 mg/dL (0.2-1.3); BLOOD UREA NITROGEN 33 mg/dL (7-20); CALCIUM 8.2 mg/dL (8.4-10.2); CARBON DIOXIDE 33 mmol/L (22-30); CHLORIDE 105 mmol/L (98-107); GLUCOSE 144 mg/dL (75-110); POTASSIUM 4.2 mmol/L (3.6-5.0); SODIUM 141.3 mmol/L (137-145); TOTAL PROTEIN 5.7 g/dL (6.3-8.2)
[2019-01-27 14:24] LABS: ANION GAP 3 (5-19)
--- NOTE | 2019-01-27 19:01 | PDOC PROGRESS REPORT ---
Subjective Progress Note for:: 01/27/19 Subjective:: Patient seen by the bedside, she was very confused today Reason For Visit: ASPIRATION PNEUMONIA,T2DM,MORBID OBESITY, Physical Exam Vital Signs: Temp Pulse Resp BP Pulse Ox 97.6 F 63 16 170/35 H 100 01/27/19 07:55 01/27/19 14:00 01/27/19 07:55 01/27/19 07:55 01/27/19 07:55 Intake & Output 01/26/19 01/27/19 01/28/19 06:59 06:59 06:59 Intake Total 1375 1060 100 Output Total 2750 2225 Balance -1375 -1165 100 Weight 145.8 kg 152 kg General appearance: PRESENT: no acute distress Eye exam: PRESENT: PERRLA Respiratory exam: PRESENT: rhonchi Cardiovascular exam: PRESENT: +S1, +S2 GI/Abdominal exam: PRESENT: soft Neurological exam: PRESENT: alert Results Laboratory Results: 01/27/19 13:22 01/27/19 13:22 01/27/19 01/27/19 13:22 13:22 WBC 7.1 RBC 3.19 L Hgb 9.4 L Hct 28.7 L MCV 90 MCH 29.5 MCHC 32.7 RDW 15.5 H Plt Count 170 Seg Neutrophils % 64.5 Lymphocytes % 19.1 Monocytes % 11.1 Eosinophils % 4.6 Basophils % 0.7 Absolute Neutrophils 4.6 Absolute Lymphocytes 1.4 Absolute Monocytes 0.8 Absolute Eosinophils 0.3 Absolute Basophils 0.0 Sodium 141.3 Potassium 4.2 Chloride 105 Carbon Dioxide 33 H Anion Gap 3 L BUN 33 H Creatinine 1.88 H Est GFR ( Amer) 32 L Est GFR (Non-Af Amer) 26 L Glucose 144 H Calcium 8.2 L Total Bilirubin 0.3 AST 28 ALT 20 Alkaline Phosphatase 131 H Total Protein 5.7 L Albumin 2.7 L 01/19/19 01/19/19 01/19/19 10:45 14:45 17:54 CK-MB (CK-2) Troponin I 0.044 0.043 0.039 NT-Pro-B Natriuret Pep 4190 H 01/20/19 05:28 CK-MB (CK-2) 2.55 Troponin I NT-Pro-B Natriuret Pep Impressions: Chest CT 01/19/19 00:00 IMPRESSION: Shifting pattern of pneumonia with improvement left lung and some worsening in the right upper lobe. No evidence of cavitation. Chest X-Ray 01/19/19 10:50 IMPRESSION: Right upper lobe pneumonia. There is a background of pulmonary vascular congestion. Assessment & Plan - Diagnosis (1) Aspiration pneumonia Qualifiers: Aspiration pneumonia type: unspecified Laterality: right Lung location: upper lobe of lung Qualified Code(s): J69.0 - Pneumonitis due to inhalation of food and vomit Is this a current diagnosis for this admission?: Yes Plan: Continue IV antibiotic (2) Hypoglycemia Is this a current diagnosis for this admission?: Yes (3) Metabolic encephalopathy Is this a current diagnosis for this admission?: Yes (4) Mixed acid base balance disorder Is this a current diagnosis for this admission?: Yes (5) UTI due to extended-spectrum beta lactamase (ESBL) producing Escherichia coli Is this a current diagnosis for this admission?: Yes Plan: Typically ESBL E. coli are sensitive to Carbapenem class of antibiotic but based on the antibiotic sensitivity this ESBL E. coli is sensitive to Zosyn (6) Severe persistent asthma with (acute) exacerbation Is this a current diagnosis for this admission?: Yes
[2019-01-27] MEDS: ATORVASTATIN CALCIUM 20 MG TABLET PO SCH (22:21)
[2019-01-27] MEDS: MONTELUKAST SODIUM 10 MG TABLET PO SCH (22:21)
[2019-01-28] MEDS: PIPERACILLIN SODIUM/TAZOBACTAM 3.375 GM in NORMAL SALINE 100 ML IV SCH ×4 (00:43→17:04)
[2019-01-28] MEDS: LEVOTHYROXINE SODIUM 0.15 MG TABLET PO SCH (06:10)
[2019-01-28] MEDS: PANTOPRAZOLE SODIUM 20 MG TABLET.DR PO SCH (06:10)
[2019-01-28] MEDS: HEPARIN SOD (PORCINE) 5,000 UNIT/ML 1 ML SYRINGE SUBCUT SCH ×3 (06:16→22:54)
[2019-01-28] MEDS: INSULIN LISPRO 100 UNIT/ML 3 ML VIAL SUBCUT SCH ×4 (08:15→22:50)
[2019-01-28] MEDS: AMLODIPINE BESYLATE 5 MG TABLET PO SCH (08:16)
[2019-01-28] MEDS: METOPROLOL SUCCINATE 50 MG TAB.SR.24H PO SCH (08:16)
[2019-01-28] MEDS: SITAGLIPTIN PHOSPHATE 50 MG TABLET PO SCH (08:17)
[2019-01-28] MEDS: DULOXETINE HCL 30 MG CAPSULE.DR PO SCH ×2 (09:37→22:49)
[2019-01-28] MEDS: PREGABALIN 75 MG CAPSULE PO SCH ×2 (09:37→22:49)
[2019-01-28] MEDS: FUROSEMIDE 20 MG TABLET PO SCH (09:38)
[2019-01-28] MEDS: LOSARTAN POTASSIUM 50 MG TABLET PO SCH (09:38)
--- NOTE | 2019-01-28 20:44 | PDOC PROGRESS REPORT ---
Subjective Progress Note for:: 01/28/19 Subjective:: Patient seen by the bedside, there is no new complaints Reason For Visit: ASPIRATION PNEUMONIA,T2DM,MORBID OBESITY, Physical Exam Vital Signs: Temp Pulse Resp BP Pulse Ox 98.0 F 63 18 140/40 H 100 01/28/19 17:44 01/28/19 17:44 01/28/19 17:44 01/28/19 17:44 01/28/19 17:44 Intake & Output 01/27/19 01/28/19 01/29/19 06:59 06:59 06:59 Intake Total 1060 2154 939 Output Total 2225 2400 620 Balance -1165 -246 319 Weight 152 kg 150 kg General appearance: PRESENT: no acute distress Eye exam: PRESENT: PERRLA Respiratory exam: PRESENT: rhonchi Cardiovascular exam: PRESENT: +S1, +S2 GI/Abdominal exam: PRESENT: soft Results Laboratory Results: 01/27/19 13:22 01/27/19 13:22 01/19/19 01/19/19 01/19/19 10:45 14:45 17:54 CK-MB (CK-2) Troponin I 0.044 0.043 0.039 NT-Pro-B Natriuret Pep 4190 H 01/20/19 05:28 CK-MB (CK-2) 2.55 Troponin I NT-Pro-B Natriuret Pep Impressions: Chest CT 01/19/19 00:00 IMPRESSION: Shifting pattern of pneumonia with improvement left lung and some worsening in the right upper lobe. No evidence of cavitation. Chest X-Ray 01/19/19 10:50 IMPRESSION: Right upper lobe pneumonia. There is a background of pulmonary vascular congestion. Assessment & Plan - Diagnosis (1) Aspiration pneumonia Qualifiers: Aspiration pneumonia type: unspecified Laterality: right Lung location: upper lobe of lung Qualified Code(s): J69.0 - Pneumonitis due to inhalation of food and vomit Is this a current diagnosis for this admission?: Yes Plan: Continue IV antibiotic (2) Hypoglycemia Is this a current diagnosis for this admission?: Yes (3) Metabolic encephalopathy Is this a current diagnosis for this admission?: Yes (4) Mixed acid base balance disorder Is this a current diagnosis for this admission?: Yes (5) UTI due to extended-spectrum beta lactamase (ESBL) producing Escherichia coli Is this a current diagnosis for this admission?: Yes (6) Severe persistent asthma with (acute) exacerbation Is this a current diagnosis for this admission?: Yes
[2019-01-28] MEDS: ATORVASTATIN CALCIUM 20 MG TABLET PO SCH (22:49)
[2019-01-28] MEDS: MONTELUKAST SODIUM 10 MG TABLET PO SCH (22:49)
[2019-01-29] MEDS: PIPERACILLIN SODIUM/TAZOBACTAM 3.375 GM in NORMAL SALINE 100 ML IV SCH ×5 (00:24→23:32)
[2019-01-29] MEDS: HEPARIN SOD (PORCINE) 5,000 UNIT/ML 1 ML SYRINGE SUBCUT SCH ×3 (05:25→22:18)
[2019-01-29] MEDS: PANTOPRAZOLE SODIUM 20 MG TABLET.DR PO SCH (05:25)
[2019-01-29] MEDS: LEVOTHYROXINE SODIUM 0.15 MG TABLET PO SCH (05:26)
[2019-01-29] MEDS: SITAGLIPTIN PHOSPHATE 50 MG TABLET PO SCH (08:08)
[2019-01-29] MEDS: AMLODIPINE BESYLATE 5 MG TABLET PO SCH (08:08)
[2019-01-29] MEDS: INSULIN LISPRO 100 UNIT/ML 3 ML VIAL SUBCUT SCH ×4 (08:09→22:15)
[2019-01-29] MEDS: METOPROLOL SUCCINATE 50 MG TAB.SR.24H PO SCH (08:09)
[2019-01-29] MEDS: FUROSEMIDE 20 MG TABLET PO SCH (09:24)
[2019-01-29] MEDS: LOSARTAN POTASSIUM 50 MG TABLET PO SCH (09:24)
[2019-01-29] MEDS: PREGABALIN 75 MG CAPSULE PO SCH ×2 (09:24→22:15)
[2019-01-29] MEDS: DULOXETINE HCL 30 MG CAPSULE.DR PO SCH ×2 (09:25→22:14)
--- NOTE | 2019-01-29 11:29 | PDOC PROGRESS REPORT ---
Subjective Progress Note for:: 01/29/19 Subjective:: Patient is currently doing fair No nursing concern Patient admitted for the aspiration pneumonia and multiple other comorbidity Reason For Visit: ASPIRATION PNEUMONIA,T2DM,MORBID OBESITY, Physical Exam Vital Signs: Temp Pulse Resp BP Pulse Ox 98.0 F 59 L 22 H 152/80 H 100 01/29/19 07:47 01/29/19 07:47 01/29/19 07:47 01/29/19 07:47 01/29/19 07:47 Intake & Output 01/28/19 01/29/19 01/30/19 06:59 06:59 06:59 Intake Total 2154 1239 Output Total 2400 1245 Balance -246 -6 Weight 150 kg 149.4 kg General appearance: PRESENT: no acute distress Head exam: PRESENT: atraumatic, normocephalic Eye exam: PRESENT: conjunctiva pink, EOMI, PERRLA. ABSENT: scleral icterus Ear exam: PRESENT: normal external ear exam Mouth exam: PRESENT: moist, tongue midline Neck exam: PRESENT: full ROM. ABSENT: carotid bruit, JVD, lymphadenopathy, thyromegaly Respiratory exam: PRESENT: clear to auscultation carter Cardiovascular exam: PRESENT: RRR. ABSENT: diastolic murmur, rubs, systolic murmur Vascular exam: PRESENT: normal capillary refill GI/Abdominal exam: PRESENT: normal bowel sounds, soft. ABSENT: distended, guarding, mass, organolmegaly, rebound, tenderness Rectal exam: PRESENT: deferred Extremities exam: PRESENT: pedal edema Neurological exam: PRESENT: alert, awake. ABSENT: motor sensory deficit Psychiatric exam: PRESENT: appropriate affect, normal mood. ABSENT: homicidal ideation, suicidal ideation Skin exam: PRESENT: dry, intact, warm. ABSENT: cyanosis, rash Results Laboratory Results: 01/27/19 13:22 01/27/19 13:22 01/19/19 01/19/19 01/19/19 10:45 14:45 17:54 CK-MB (CK-2) Troponin I 0.044 0.043 0.039 NT-Pro-B Natriuret Pep 4190 H 01/20/19 05:28 CK-MB (CK-2) 2.55 Troponin I NT-Pro-B Natriuret Pep Impressions: Chest CT 01/19/19 00:00 IMPRESSION: Shifting pattern of pneumonia with improvement left lung and some worsening in the right upper lobe. No evidence of cavitation. Chest X-Ray 01/19/19 10:50 IMPRESSION: Right upper lobe pneumonia. There is a background of pulmonary vascular congestion. Assessment & Plan - Diagnosis (1) Aspiration pneumonia Qualifiers: Aspiration pneumonia type: unspecified Laterality: right Lung location: upper lobe of lung Qualified Code(s): J69.0 - Pneumonitis due to inhalation of food and vomit Is this a current diagnosis for this admission?: Yes (2) Hypoglycemia Is this a current diagnosis for this admission?: Yes (3) Metabolic encephalopathy Is this a current diagnosis for this admission?: Yes (4) Chronic kidney disease, stage 3 Is this a current diagnosis for this admission?: Yes (5) Diabetes mellitus type 2 in obese Is this a current diagnosis for this admission?: Yes - Time Time Spent with patient: 15-24 minutes Medications reviewed and adjusted accordingly: Yes Anticipated discharge: Other Within: Other - Plan Summary Plan Summary: Continues to current medication
[2019-01-29] MEDS: ACETAMINOPHEN 325 MG TABLET PO PRN (20:20)
[2019-01-29] MEDS: MONTELUKAST SODIUM 10 MG TABLET PO SCH (22:15)
[2019-01-29] MEDS: ATORVASTATIN CALCIUM 20 MG TABLET PO SCH (22:15)
[2019-01-30] MEDS: ACETAMINOPHEN 325 MG TABLET PO PRN ×2 (05:09→21:57)
[2019-01-30] MEDS: HEPARIN SOD (PORCINE) 5,000 UNIT/ML 1 ML SYRINGE SUBCUT SCH ×3 (05:09→21:34)
[2019-01-30] MEDS: PIPERACILLIN SODIUM/TAZOBACTAM 3.375 GM in NORMAL SALINE 100 ML IV SCH ×4 (05:10→23:35)
[2019-01-30] MEDS: LEVOTHYROXINE SODIUM 0.15 MG TABLET PO SCH (05:10)
[2019-01-30] MEDS: PANTOPRAZOLE SODIUM 20 MG TABLET.DR PO SCH (05:10)
[2019-01-30] MEDS: METOPROLOL SUCCINATE 50 MG TAB.SR.24H PO SCH (08:42)
[2019-01-30] MEDS: AMLODIPINE BESYLATE 5 MG TABLET PO SCH (08:42)
[2019-01-30] MEDS: SITAGLIPTIN PHOSPHATE 50 MG TABLET PO SCH (08:42)
[2019-01-30] MEDS: INSULIN LISPRO 100 UNIT/ML 3 ML VIAL SUBCUT SCH ×4 (08:42→21:30)
[2019-01-30] MEDS: PREGABALIN 75 MG CAPSULE PO SCH ×2 (10:58→21:34)
[2019-01-30] MEDS: DULOXETINE HCL 30 MG CAPSULE.DR PO SCH ×2 (10:58→21:34)
[2019-01-30] MEDS: FUROSEMIDE 20 MG TABLET PO SCH (10:59)
[2019-01-30] MEDS: LOSARTAN POTASSIUM 50 MG TABLET PO SCH (10:59)
--- NOTE | 2019-01-30 11:01 | PDOC PROGRESS REPORT ---
Subjective Progress Note for:: 01/30/19 Subjective:: Patient is currently doing fair No nursing concern Patient admitted for the aspiration pneumonia and multiple other comorbidity Reason For Visit: ASPIRATION PNEUMONIA,T2DM,MORBID OBESITY, Physical Exam Vital Signs: Temp Pulse Resp BP Pulse Ox 97.5 F 71 18 178/64 H 98 01/30/19 07:09 01/30/19 07:09 01/30/19 07:09 01/30/19 07:09 01/30/19 07:09 Intake & Output 01/29/19 01/30/19 01/31/19 06:59 06:59 06:59 Intake Total 1239 1860 Output Total 1245 2225 Balance -6 -365 Weight 149.4 kg 148.1 kg General appearance: PRESENT: no acute distress, well-developed, well-nourished Head exam: PRESENT: atraumatic, normocephalic Eye exam: PRESENT: conjunctiva pink, EOMI, PERRLA. ABSENT: scleral icterus Ear exam: PRESENT: normal external ear exam Mouth exam: PRESENT: moist, tongue midline Neck exam: PRESENT: full ROM. ABSENT: carotid bruit, JVD, lymphadenopathy, thyromegaly Respiratory exam: PRESENT: decreased breath sounds Cardiovascular exam: PRESENT: RRR. ABSENT: diastolic murmur, rubs, systolic murmur Vascular exam: PRESENT: normal capillary refill GI/Abdominal exam: PRESENT: normal bowel sounds, soft. ABSENT: distended, guarding, mass, organolmegaly, rebound, tenderness Rectal exam: PRESENT: deferred Extremities exam: PRESENT: pedal edema Neurological exam: PRESENT: alert, awake, oriented to person. ABSENT: motor sensory deficit Psychiatric exam: PRESENT: appropriate affect, normal mood. ABSENT: homicidal ideation, suicidal ideation Skin exam: PRESENT: dry, intact, warm. ABSENT: cyanosis, rash Results Laboratory Results: 01/27/19 13:22 01/27/19 13:22 01/19/19 01/19/19 01/19/19 10:45 14:45 17:54 CK-MB (CK-2) Troponin I 0.044 0.043 0.039 NT-Pro-B Natriuret Pep 4190 H 01/20/19 05:28 CK-MB (CK-2) 2.55 Troponin I NT-Pro-B Natriuret Pep Impressions: Chest CT 01/19/19 00:00 IMPRESSION: Shifting pattern of pneumonia with improvement left lung and some worsening in the right upper lobe. No evidence of cavitation. Chest X-Ray 01/19/19 10:50 IMPRESSION: Right upper lobe pneumonia. There is a background of pulmonary vascular congestion. Assessment & Plan - Diagnosis (1) Aspiration pneumonia Qualifiers: Aspiration pneumonia type: unspecified Laterality: right Lung location: upper lobe of lung Qualified Code(s): J69.0 - Pneumonitis due to inhalation of food and vomit Is this a current diagnosis for this admission?: Yes (2) Hypoglycemia Is this a current diagnosis for this admission?: Yes (3) Metabolic encephalopathy Is this a current diagnosis for this admission?: Yes (4) Chronic kidney disease, stage 3 Is this a current diagnosis for this admission?: Yes (5) Diabetes mellitus type 2 in obese Is this a current diagnosis for this admission?: Yes - Time Time Spent with patient: 15-24 minutes Medications reviewed and adjusted accordingly: Yes Anticipated discharge: SNF Within: Other - Plan Summary Plan Summary: Continues current medication
[2019-01-30] MEDS: MONTELUKAST SODIUM 10 MG TABLET PO SCH (21:34)
[2019-01-30] MEDS: ATORVASTATIN CALCIUM 20 MG TABLET PO SCH (21:34)
[2019-01-31] MEDS: PIPERACILLIN SODIUM/TAZOBACTAM 3.375 GM in NORMAL SALINE 100 ML IV SCH ×2 (05:45→12:05)
[2019-01-31] MEDS: HEPARIN SOD (PORCINE) 5,000 UNIT/ML 1 ML SYRINGE SUBCUT SCH (05:45)
[2019-01-31] MEDS: PANTOPRAZOLE SODIUM 20 MG TABLET.DR PO SCH (05:45)
[2019-01-31] MEDS: LEVOTHYROXINE SODIUM 0.15 MG TABLET PO SCH (05:45)
[2019-01-31] MEDS: INSULIN LISPRO 100 UNIT/ML 3 ML VIAL SUBCUT SCH ×2 (08:59→11:49)
[2019-01-31] MEDS: LOSARTAN POTASSIUM 50 MG TABLET PO SCH (09:21)
[2019-01-31] MEDS: PREGABALIN 75 MG CAPSULE PO SCH (09:21)
[2019-01-31] MEDS: METOPROLOL SUCCINATE 50 MG TAB.SR.24H PO SCH (09:22)
[2019-01-31] MEDS: AMLODIPINE BESYLATE 5 MG TABLET PO SCH (09:22)
[2019-01-31] MEDS: DULOXETINE HCL 30 MG CAPSULE.DR PO SCH (09:22)
[2019-01-31] MEDS: SITAGLIPTIN PHOSPHATE 50 MG TABLET PO SCH (09:22)
[2019-01-31] MEDS: FUROSEMIDE 20 MG TABLET PO SCH (09:22)
[2019-01-31 13:51] VITALS: BP 174/85
--- NOTE | 2019-01-31 17:56 | PDOC DISCHARGE SUMMARY ---
General - Admit/Disc Date/PCP Admission Date/Primary Care Provider: 01/19/19 13:42 YIMI ECHAVARRIA MD Discharge Date: 01/31/19 - Discharge Diagnosis (1) Aspiration pneumonia Is this a current diagnosis for this admission?: Yes (2) Hypoglycemia Is this a current diagnosis for this admission?: Yes (3) Metabolic encephalopathy Is this a current diagnosis for this admission?: Yes (4) Mixed acid base balance disorder Is this a current diagnosis for this admission?: Yes (5) UTI due to extended-spectrum beta lactamase (ESBL) producing Escherichia coli Is this a current diagnosis for this admission?: Yes (6) Severe persistent asthma with (acute) exacerbation Is this a current diagnosis for this admission?: Yes - Additional Information Resuscitation Status: Full Code Home Medications: Atorvastatin Calcium [Lipitor 20 mg Tablet] 20 mg PO QHS 08/04/18 Duloxetine HCl [Cymbalta] 60 mg PO Q12 08/04/18 Levothyroxine Sodium 150 mcg PO Q6AM 08/04/18 Linagliptin [Tradjenta] 5 mg PO QAM 08/04/18 Metoprolol Succinate [Toprol Xl] 200 mg PO QAM 08/04/18 Mirabegron [Myrbetriq] 50 mg PO QAM 08/04/18 Montelukast Sodium [Singulair 10 mg Tablet] 10 mg PO QHS 08/04/18 Omeprazole Magnesium [Prilosec Otc] 20 mg PO Q6AM 08/04/18 Pregabalin [Lyrica] 150 mg PO Q12 08/04/18 Budesonide/Formoterol Fumarate [Symbicort HFA 160-4.5 mcg Inhaler 6 gm] 2 puff IH Q12 #2 inhaler 08/11/18 Amlodipine Besylate [Norvasc 5 mg Tablet] 10 mg PO QAM #90 12/30/18 Furosemide [Lasix 20 mg Tablet] 20 mg PO DAILY 01/19/19 Telmisartan 80 mg PO DAILY 01/19/19 Acetaminophen [Tylenol 325 mg Tablet] 650 mg PO Q4HP PRN tablet 01/31/19 Insulin Glargine,Hum.rec.anlog [Basaglar Kwikpen U-100] 10 unit SQ QAM #0 01/31/19 History of Present Illness History of Present Illness: ONDINA ENRIQUEZ is a 73 year old female,She came to the emergency room for evaluation of shortness of breath, the history was that patient was found sitting next to her bed minimally responsive when EMS arrived at her residence, the Accu-Chek was 23, she was given glucagon prior to arrival in the emergency room when she arrived she was on 2 L of oxygen the oxygen saturation was 80%.. She received 2 doses of glucagon when the [id number]-ln-fsaa glucose was 39 ultimately she was given 1 ampoule of 50% dextrose, chest x-ray was obtained that demonstrated right upper lobe pneumonia she was given IV Rocephin and azithromycin in the emergency room there was no fever or leukocytosis to suggest sepsis blood cultures were obtained in the emergency room. Patient was recently admitted to this hospital, she was discharged within the last 30 days, CAT scan of the chest without contrast was obtained it demonstrated increasing airspace d isease in the right upper lobe, improved aeration in the left upper lobe and left lower lobe dependent atelectasis right lower lobe the impression was that there was shifting pattern of pneumonia with improvement in the left lung also worsening in the right upper lobe this suggest to me that she probably aspirated. Hospital Course Hospital Course: Patient was admitted for the management of aspiration pneumonia, she was treated with intravenous antibiotic, Zosyn. She had episode of hypoglycemic encephalopathy. She also had ESBL E. coli UTI, the organism was sensitive to Zosyn. She had episode of delirium during the course of hospital stay. Patient is discharged home today, she would need outpatient physical therapy Physical Exam Vital Signs: Temp Pulse Resp BP Pulse Ox 98.9 F 63 22 H 174/85 H 100 01/31/19 13:48 01/31/19 13:48 01/31/19 13:48 01/31/19 13:48 01/31/19 13:48 Intake & Output 01/30/19 01/31/19 02/01/19 06:59 06:59 06:59 Intake Total 1860 1120 960 Output Total 2225 1650 1300 Balance -365 -530 -340 Weight 148.1 kg 151 kg General appearance: PRESENT: no acute distress Eye exam: PRESENT: PERRLA Ear exam: PRESENT: normal external ear exam Mouth exam: PRESENT: moist, tongue midline Neck exam: PRESENT: full ROM Respiratory exam: PRESENT: clear to auscultation carter Cardiovascular exam: PRESENT: RRR, +S1, +S2 Vascular exam: PRESENT: normal capillary refill GI/Abdominal exam: PRESENT: normal bowel sounds, soft Rectal exam: PRESENT: deferred Neurological exam: PRESENT: alert, CN II-XII grossly intact Psychiatric exam: PRESENT: appropriate affect, normal mood Skin exam: PRESENT: dry, intact, warm Results Laboratory Results: 01/27/19 13:22 01/27/19 13:22 01/19/19 01/19/19 01/19/19 10:45 14:45 17:54 CK-MB (CK-2) Troponin I 0.044 0.043 0.039 NT-Pro-B Natriuret Pep 4190 H 01/20/19 05:28 CK-MB (CK-2) 2.55 Troponin I NT-Pro-B Natriuret Pep Impressions: Chest CT 01/19/19 00:00 IMPRESSION: Shifting pattern of pneumonia with improvement left lung and some worsening in the right upper lobe. No evidence of cavitation. Chest X-Ray 01/19/19 10:50 IMPRESSION: Right upper lobe pneumonia. There is a background of pulmonary vascular congestion. Qualifiers - * PATIENT BEING DISCHARGED WITH ANY OF THE FOLLOWING DIAGNOSIS: No VTE patient discharged on overlapping Therapy?: No Reason(s) for not prescribing Overlap Therapy:: Not indicated Stroke Pt being discharged on Anti-thrombolytic therapy?: No Reason(s) for not prescribing Anti-thrombolytic therapy:: Not indicated Stroke Pt being discharged on Anti-coagulation therapy?: No Reason(s) for not prescribing Anti-coagulation therapy:: Not indicated Stroke Pt being discharged on Statins?: No Reason(s) for not prescribing Statins therapy:: Not indicated LA Pt being discharged on Aspirin therapy?: No Reason(s) for not prescribing Aspirin therapy:: Not indicated LA Pt being discharged on Statins?: No Reason(s) for not prescribing Statin therapy:: Not indicated LA Pt discharged ACEI/ARBS?: No Reason(s) for not prescribing ACEI/ARBS:: Not indicated Acute Heart Failure - Is this a Heart Failure Patient?: No 3. Anticoagulant therapy for permanect/persistent/paraoxysmal Afib or Aflutter: N/A
== END 2019-01-31 15:00 | disposition home or self-care (01) | DRG 177 ==
LOC: ER 10:25 → EH 13:42 → 3S 15:21
PROVIDERS: ADMIT Internal Medicine; ATTEND Internal Medicine
DX: J69.0 Pneumonitis due to inhalation of food and vomit (principal); G93.41 Metabolic encephalopathy; E87.4 Mixed disorder of acid-base balance; N39.0 Urinary tract infection, site not specified; J45.51 Severe persistent asthma with (acute) exacerbation; E11.649 Type 2 diabetes mellitus with hypoglycemia without coma; E78.5 Hyperlipidemia, unspecified; E03.9 Hypothyroidism, unspecified; K21.9 Gastro-esophageal reflux disease without esophagitis; E11.22 Type 2 diabetes mellitus with diabetic chronic kidney disease; M19.90 Unspecified osteoarthritis, unspecified site; F32.9 Major depressive disorder, single episode, unspecified; Z79.4 Long term (current) use of insulin; Z99.81 Dependence on supplemental oxygen; D64.9 Anemia, unspecified; B96.20 Unspecified Escherichia coli [E. coli] as the cause of diseases classified elsewhere; Z16.12 Extended spectrum beta lactamase (ESBL) resistance; E66.01 Morbid (severe) obesity due to excess calories; N18.3 Chronic kidney disease, stage 3 (moderate); I12.9 Hypertensive chronic kidney disease with stage 1 through stage 4 chronic kidney disease, or unspecified chronic kidney disease
CPT/HCPCS: 36415; 71045; 71250; 80053; 80069; 81001; 82306; 82553; 82728; 82803; 82947; 82962; 83036; 83540; 83550; 83605; 83880; 83970; 84484; 85025; 87040; 87077; 87086; 87088; 87186; 93005; 93010; 94640; 96365; 96367; 96375; 99291; J0456; J0696; J1610; J1644; J1815; J2543; J3490; J7030; J7050; J7620

== ENCOUNTER 2019-03-14 14:03 | Inpatient (IN) | payer MEDICARE, MEDICAID ==
--- NOTE | 2019-03-14 14:18 | ER Document Report ---
ED General - General Chief Complaint: Chest Pain Stated Complaint: CHEST PAIN Time Seen by Provider: 03/14/19 14:08 Primary Care Provider: YIMI ECHAVARRIA MD [ACTIVE STAFF] - Follow up as needed Mode of Arrival: Medic Information source: Patient, Emergency Med Personnel TRAVEL OUTSIDE OF THE [place] IN LAST 30 DAYS: No - HPI Patient complains to provider of: patient has had 3-4 days of anterior chest pain Onset: Other - 3-4 days Onset/Duration: Gradual Quality of pain: Pressure Severity: Moderate Context: anterior chest pain radiating to the back mild cough productive of clear sputum this feels similar to when she had pneumonia previously she states she has had a "heart attack" but has never had a stent or bypass denies h/o PE or DVT Associated symptoms: Productive cough. denies: Leg swelling, Nausea, Vomiting, Sweating, Weakness Exacerbated by: Coughing Relieved by: Denies Similar symptoms previously: Yes Recently seen / treated by doctor: No - Related Data Allergies/Adverse Reactions: aspirin [Aspirin] Allergy (Verified 01/19/19 11:29) Edema, GI UPSET morphine [Morphine] Allergy (Verified 01/19/19 11:29) ANAPHYLAXSIS, Facial swelling Past Medical History - Social History Smoking Status: Unknown if Ever Smoked Family History: Reviewed & Not Pertinent - Past Medical History Cardiac Medical History: Reports: Hx Congestive Heart Failure, Hx Hypercholesterolemia, Hx Hypertension Pulmonary Medical History: Reports: Hx Asthma, Hx COPD, Hx Pneumonia Neurological Medical History: Denies: Hx Cerebrovascular Accident Endocrine Medical History: Reports: Hx Diabetes Mellitus Type 2, Hx Hypothyroidism Renal/ Medical History: Reports: Hx End Stage Renal Disease. Denies: Hx Peritoneal Dialysis GI Medical History: Reports: Hx Gastroesophageal Reflux Disease, Hx Ulcer Musculoskeletal Medical History: Reports Hx Arthritis Psychiatric Medical History: Reports: Hx Depression Past Surgical History: Reports: Hx Cholecystectomy, Hx Hysterectomy, Hx Orthopedic Surgery - bilateral knee replacement. Denies: Hx Pacemaker - Immunizations Immunizations up to date: Yes Hx Diphtheria, Pertussis, Tetanus Vaccination: No Hx Pneumococcal Vaccination: 03/11/12 Review of Systems - Review of Systems Constitutional: No symptoms reported EENT: No symptoms reported Cardiovascular: Chest pain. denies: Dyspnea, Syncope Respiratory: Cough, Sputum Gastrointestinal: No symptoms reported Genitourinary: No symptoms reported Female Genitourinary: No symptoms reported Musculoskeletal: No symptoms reported Skin: No symptoms reported Hematologic/Lymphatic: No symptoms reported Neurological/Psychological: No symptoms reported Physical Exam - Vital signs Vitals: Pulse Ox 98 03/14/19 14:07 Interpretation: Normal - General General appearance: Appears well, Alert Notes: obese - HEENT Head: Normocephalic, Atraumatic Eyes: Normal Pupils: PERRL - Respiratory Respiratory status: No respiratory distress Chest status: Nontender Breath sounds: Normal Chest palpation: Normal - Cardiovascular Rhythm: Regular Heart sounds: Normal auscultation Murmur: No Notes: anterior chest wall tenderness w/ palpation - Abdominal Inspection: Normal Distension: No distension Bowel sounds: Normal Tenderness: Nontender Organomegaly: No organomegaly - Back Back: Normal, Nontender - Extremities General upper extremity: Normal inspection, Nontender, Normal color, Normal ROM, Normal temperature General lower extremity: Normal inspection, Nontender, Normal color, Normal ROM, Normal temperature, Normal weight bearing. No: Cristine's sign - Neurological Neuro grossly intact: Yes Cognition: Normal Orientation: AAOx4 Pee Coma Scale Eye Opening: Spontaneous Pee Coma Scale Verbal: Oriented Pee Coma Scale Motor: Obeys Commands Newberg Coma Scale Total: 15 Speech: Normal Motor strength normal: LUE, RUE, LLE, RLE Sensory: Normal - Psychological Associated symptoms: Normal affect, Normal mood - Skin Skin Temperature: Warm Skin Moisture: Dry Skin Color: Normal Course - Re-evaluation Re-evalutation: 03/14/19 17:34 HEART score - 7 EKG nonischemic but w/ possible a-fib/flutter discussed w/ cardiology who is equivocal for admission discussed w/ Dr Britt for admission for hi risk chest pain --> Dr Britt recommends sputum cultures and antibiotics 03/14/19 17:[address] Britt - Vital Signs Vital signs: Temp Pulse Resp BP Pulse Ox 98 03/14/19 14:07 - Laboratory Result Diagrams: 03/14/19 16:15 03/14/19 16:15 Laboratory results interpreted by me: 03/14/19 03/14/19 03/14/19 16:15 16:15 16:15 RBC 3.05 L Hgb 8.9 L Hct 27.6 L RDW 15.8 H Lymphocytes % 12.1 L BUN 36 H Creatinine 2.33 H Est GFR ( Amer) 25 L Est GFR (Non-Af Amer) 20 L Glucose 194 H Calcium 8.1 L Creatine Kinase 793 H NT-Pro-B Natriuret Pep 4330 H Total Protein 6.1 L Albumin 2.9 L - EKG Interpretation by Me Rate: Normal - 68 Rhythm: Other - af-b vs a flutter Additional EKG results interpreted by me: 03/14/19 17:37 poor R wave progression Discharge - Discharge Clinical Impression: Chest pain Qualifiers: Chest pain type: chest pain due to myocardial ischemia Ischemic chest pain type: unspecified angina pectoris type Qualified Code(s): I25.9 - Chronic ischem ic heart disease, unspecified Condition: Stable Disposition: ADMITTED INPATIENT Admitting Provider: [facility] Unit Admitted: Telemetry Referrals: YIMI ECHAVARRIA MD [ACTIVE STAFF] - Follow up as needed
--- NOTE | 2019-03-14 14:55 | RADIOLOGY REPORT (SQ) ---
EXAM DESCRIPTION: CHEST SINGLE VIEW COMPLETED DATE/TIME: 03/14/2019 2:39 pm REASON FOR STUDY: bed 4 cp COMPARISON: CT chest 01/19/2019, 12/20/2018, 03/04/2018 AP chest 01/19/2019 EXAM PARAMETERS: NUMBER OF VIEWS: One view. TECHNIQUE: Single frontal radiographic view of the chest acquired. RADIATION DOSE: NA LIMITATIONS: None. FINDINGS: LUNGS AND PLEURA: No opacities, masses or pneumothorax. No pleural effusion. MEDIASTINUM AND HILAR STRUCTURES: No masses. Contour normal. HEART AND VASCULAR STRUCTURES: Borderline cardiomegaly. Normal vasculature. BONES: No acute findings. HARDWARE: None in the chest. OTHER: No other significant finding. IMPRESSION: NO ACUTE RADIOGRAPHIC FINDING IN THE CHEST. TECHNICAL DOCUMENTATION: JOB ID: [id number] [employer]- All Rights Reserved Reading location - IP/workstation name: [email or web address]
--- NOTE | 2019-03-14 15:56 | RADIOLOGY REPORT (SQ) ---
EXAM DESCRIPTION: CT CHEST WITHOUT COMPLETED DATE/TIME: 03/14/2019 3:21 pm REASON FOR STUDY: pneumonia? COMPARISON: 01/19/2019 TECHNIQUE: CT scan performed of the chest without intravenous contrast. Images reviewed with lung, soft tissue and bone windows. Reconstructed coronal and sagittal MPR images reviewed. All images st ored on PACS. All CT scanners at this facility use dose modulation, iterative reconstruction, and/or weight based d osing when appropriate to reduce radiation dose to as low as reasonably achievable (ALARA). [facility]: Dose Right [facility]: CareDose [facility]: Dose Right [facility]: Teradose 4D [facility]: [employer] RADIATION DOSE: CT Rad equipment meets quality standard of care and radiation dose reduction techniq ues were employed. CTDIvol: 21.1 mGy. DLP: 749 mGy-cm. mGy. LIMITATIONS: No technical limitations. FINDINGS: LUNGS AND PLEURA: Mild lower lobe atelectatic changes. Minimal right pleural effusion. N o mass. HILAR AND MEDIASTINAL STRUCTURES: No identified masses or abnormal nodes. No obvious aneurysm. HEART AND VASCULAR STRUCTURES: No aneurysm. No pericardial effusion. UPPER ABDOMEN: No significant findings. Limited exam. THYROID AND OTHER SOFT TISSUES: No masses. No adenopathy. BONES: No significant finding. HARDWARE: None in the chest. OTHER: No other significant findings. IMPRESSION: Minimal right pleural effusion. Mild dependent atelectasis in the lower lobes. No pneu monia or other acute finding. TECHNICAL DOCUMENTATION: JOB ID: [id number] Quality ID # [id number]: Final reports with documentation of one or more dose reduction techniques (e.g., Au tomated exposure control, adjustment of the mA and/or kV according to patient size, use of iterative reconstruction technique) 2010 [employer]- All Rights Reserved Reading location - IP/workstation name: [email or web address]
[2019-03-14 16:29] LABS: ABSOLUTE BASOPHILS # (AUTO) 0.1 10^3/uL (0.0-0.2); ABSOLUTE EOSINOPHILS # (AUTO) 0.4 10^3/uL (0.0-0.6); ABSOLUTE NEUT (AUTO) 5.7 10^3/uL (1.7-8.2); BASOPHILS % (AUTO) 0.8 % (0-2); EOSINOPHILS % (AUTO) 5.3 % (0-6); HEMATOCRIT 27.6 % (36.0-47.0); HEMOGLOBIN 8.9 g/dL (12.0-15.5); LYMPHOCYTES % (AUTO) 12.1 % (13-45); MEAN CORPUSCULAR HEMOGLOBIN 29.1 pg (27.0-33.4); MEAN CORPUSCULAR HGB CONC 32.1 g/dL (32.0-36.0); MEAN CORPUSCULAR VOLUME 91 fl (80-97); MONOCYTES % (AUTO) 12.6 % (3-13); PLATELET COUNT 202 10^3/uL (150-450); RED BLOOD COUNT 3.05 10^6/uL (3.72-5.28); RED CELL DISTRIBUTION WIDTH 15.8 % (11.5-14.0); SEGMENTED NEUTROPHILS % (AUTO) 69.2 % (42-78); TOTAL CELLS COUNTED % (AUTO) 100 %; WHITE BLOOD COUNT 8.3 10^3/uL (4.0-10.5)
[2019-03-14 17:05] LABS: ALBUMIN 2.9 g/dL (3.5-5.0); ALKALINE PHOSPHATASE 117 U/L (38-126); ANION GAP 8 (5-19); ASPARTATE AMINO TRANSFERASE 34 U/L (14-36); BILIRUBIN,DIRECT 0.3 mg/dL (0.0-0.4); BILIRUBIN,TOTAL 0.3 mg/dL (0.2-1.3); BLOOD UREA NITROGEN 36 mg/dL (7-20); CALCIUM 8.1 mg/dL (8.4-10.2); CARBON DIOXIDE 27 mmol/L (22-30); CHLORIDE 107 mmol/L (98-107); CREATINE KINASE 793 U/L (30-135); GLUCOSE 194 mg/dL (75-110); POTASSIUM 4.3 mmol/L (3.6-5.0); TOTAL PROTEIN 6.1 g/dL (6.3-8.2)
[2019-03-14 17:13] LABS: CREATINE KINASE MB 2.07 ng/mL (<4.55); NT PRO BNP 4330 pg/mL (<450)
[2019-03-14 17:15] LABS: TROPONIN I < 0.012 ng/mL
[2019-03-14] MEDS ORDERED: CEFTRIAXONE 1 GM/D5W RTU 1 GM/50 ML RTUPB IV ONE (17:33)
[2019-03-14] MEDS ORDERED: ACETAMINOPHEN 325 MG TABLET PO PRN (17:34)
[2019-03-14] MEDS ORDERED: GLUCAGON,HUMAN RECOMB 1 MG INJ IM PRN (17:38)
[2019-03-14] MEDS ORDERED: DEXTROSE 50%-WATER 25 GM/50 ML DISP.SYRIN IV PRN ×2 (17:38)
[2019-03-14] MEDS ORDERED: DEXTROSE 40% GEL 15 GM TUBE PO PRN ×2 (17:38)
--- NOTE | 2019-03-14 17:40 | Progress Note ---
Provider Note Provider Note: pt seen and examine and d/w er doctor and nursing staff and admit in imcu
--- NOTE | 2019-03-14 17:52 | EKG REPORT ---
SEVERITY:- ABNORMAL ECG - SINUS RHYTHM WITH BASELINE DISTORTIONS CONSIDER ANTEROSEPTAL INFARCT : Confirmed by: Matthew Thomas MD 14-Mar-2019 17:51:40
[2019-03-14 19:37] LABS: CREATINE KINASE MB 1.98 ng/mL (<4.55)
[2019-03-14 19:47] LABS: TROPONIN I < 0.012 ng/mL
[2019-03-14] MEDS: IPRATROPIUM/ALBUTEROL 0.5-2.5 MG/3 ML AMPUL NEB SCH (20:10)
--- NOTE | 2019-03-14 20:25 | RADIOLOGY REPORT (SQ) ---
VENTILATION/PERFUSION SCAN HISTORY: Shortness of breath. TECHNIQUE: The patient received 32.4 mCi of Tc-99m DTPA aerosol via inhalation and 5.13 mCi of technetium-99m MAA intravenously. Multiple ventilation and perfusion views of the chest were obtained. FINDINGS: The perfusion images show homogeneous distribution of the radiotracer in both lungs. The ventilation images show homogeneous distribution of the radiotracer in both lungs with mild clumping in the central airways suggesting emphysema. No mismatched ventilation/perfusion defects are identified. IMPRESSION: No evidence of pulmonary embolism.
[2019-03-14] MEDS: INSULIN LISPRO 100 UNIT/ML 3 ML VIAL SUBCUT SCH (22:43)
[2019-03-14] MEDS: DOXYCYCLINE HYCLATE 100 MG TABLET PO SCH (22:53)
[2019-03-14] MEDS: AMLODIPINE BESYLATE 5 MG TABLET PO SCH (22:55)
[2019-03-14] MEDS: PREGABALIN 75 MG CAPSULE PO SCH (22:55)
[2019-03-14] MEDS: DULOXETINE HCL 30 MG CAPSULE.DR PO SCH (22:56)
[2019-03-14] MEDS: FAMOTIDINE 20 MG TABLET PO SCH (22:56)
[2019-03-14] MEDS: HEPARIN SOD (PORCINE) 5,000 UNIT/ML 1 ML VIAL SUBCUT SCH (22:56)
[2019-03-14] MEDS: MONTELUKAST SODIUM 10 MG TABLET PO SCH (22:56)
[2019-03-14] MEDS: ATORVASTATIN CALCIUM 20 MG TABLET PO SCH (22:56)
[2019-03-14 23:45] LABS: VENOUS BLOOD BASE EXCESS 2.9 mmol/L; VENOUS BLOOD HCO3 31.6 mmol/L (20-32); VENOUS BLOOD PH 7.26 (7.30-7.42)
[2019-03-14 23:48] LABS: VENOUS BLOOD PCO2 72.3 mmHg (35-63)
[2019-03-15 00:15] LABS: CREATINE KINASE MB 2.24 ng/mL (<4.55)
[2019-03-15 00:20] LABS: TROPONIN I < 0.012 ng/mL
[2019-03-15] MEDS: HEPARIN SOD (PORCINE) 5,000 UNIT/ML 1 ML VIAL SUBCUT SCH ×3 (05:24→21:45)
[2019-03-15] MEDS ORDERED: LEVOTHYROXINE SODIUM 0.15 MG TABLET PO SCH (06:00)
[2019-03-15] MEDS ORDERED: PANTOPRAZOLE SODIUM 20 MG TABLET.DR PO SCH (06:00)
[2019-03-15] MEDS ORDERED: FUROSEMIDE INJ/PF 40 MG/4 ML SDV ONE (06:12)
[2019-03-15 06:26] LABS: ANION GAP 8 (5-19); BLOOD UREA NITROGEN 37 mg/dL (7-20); CALCIUM 8.7 mg/dL (8.4-10.2); CARBON DIOXIDE 32 mmol/L (22-30); CHLORIDE 104 mmol/L (98-107); CREATINE KINASE 807 U/L (30-135); GLUCOSE 201 mg/dL (75-110)
[2019-03-15 06:30] LABS: CREATINE KINASE MB 1.95 ng/mL (<4.55); NT PRO BNP 3740 pg/mL (<450)
[2019-03-15 06:34] LABS: TROPONIN I < 0.012 ng/mL
[2019-03-15 07:05] LABS: ABSOLUTE EOSINOPHILS # (AUTO) 0.4 10^3/uL (0.0-0.6); ABSOLUTE LYMPHOCYTES (AUTO) 1.1 10^3/uL (0.5-4.7); ABSOLUTE MONOCYTES (AUTO) 0.8 10^3/uL (0.1-1.4); BASOPHILS % (AUTO) 0.5 % (0-2); HEMATOCRIT 29.2 % (36.0-47.0); HEMOGLOBIN 9.5 g/dL (12.0-15.5); MEAN CORPUSCULAR HEMOGLOBIN 29.6 pg (27.0-33.4); MEAN CORPUSCULAR HGB CONC 32.5 g/dL (32.0-36.0); MEAN CORPUSCULAR VOLUME 91 fl (80-97); MONOCYTES % (AUTO) 10.9 % (3-13); PLATELET COUNT 218 10^3/uL (150-450); RED BLOOD COUNT 3.21 10^6/uL (3.72-5.28); RED CELL DISTRIBUTION WIDTH 15.8 % (11.5-14.0); SEGMENTED NEUTROPHILS % (AUTO) 67.6 % (42-78); TOTAL CELLS COUNTED % (AUTO) 100 %; WHITE BLOOD COUNT 7.4 10^3/uL (4.0-10.5)
--- NOTE | 2019-03-15 07:35 | EKG REPORT ---
SEVERITY:- ABNORMAL ECG - SINUS RHYTHM CONSIDER ANTEROSEPTAL INFARCT : Confirmed by: Matthew Thomas MD 15-Mar-2019 07:34:59
[2019-03-15] MEDS: IPRATROPIUM/ALBUTEROL 0.5-2.5 MG/3 ML AMPUL NEB SCH ×4 (07:54→19:50)
[2019-03-15] MEDS ORDERED: (PENDING PHARMACY ID) (Linagliptin [Tradjenta] 5 MG) PO SCH (08:00)
[2019-03-15] MEDS ORDERED: (PENDING PHARMACY ID) (Mirabegron [Myrbetriq] 50 MG) PO SCH (08:00)
[2019-03-15] MEDS ORDERED: INSULIN GLARGINE,HUM.REC.ANLOG 1,000 UNIT/10 ML VIAL SUBCUT SCH (08:00)
[2019-03-15] MEDS: INSULIN LISPRO 100 UNIT/ML 3 ML VIAL SUBCUT SCH ×4 (08:47→21:46)
[2019-03-15] MEDS: METOPROLOL SUCCINATE 50 MG TAB.SR.24H PO SCH (08:47)
[2019-03-15] MEDS: FLUTICASONE/VILANTEROL 200-25 MCG/DOSE IH SCH (09:33)
[2019-03-15] MEDS: PREGABALIN 75 MG CAPSULE PO SCH ×2 (09:33→21:45)
[2019-03-15] MEDS: FAMOTIDINE 20 MG TABLET PO SCH ×2 (09:33→21:45)
[2019-03-15] MEDS: DOXYCYCLINE HYCLATE 100 MG TABLET PO SCH ×2 (09:33→18:10)
[2019-03-15] MEDS: AMLODIPINE BESYLATE 5 MG TABLET PO SCH ×2 (09:33→21:45)
[2019-03-15] MEDS: LOSARTAN POTASSIUM 50 MG TABLET PO SCH (09:34)
[2019-03-15] MEDS: INSULIN GLARGINE,HUM.REC.ANLOG 1,000 UNIT/10 ML VIAL SUBCUT SCH ×2 (09:34→10:45)
[2019-03-15] MEDS: FUROSEMIDE 20 MG TABLET PO SCH (09:34)
[2019-03-15] MEDS: SITAGLIPTIN PHOSPHATE 50 MG TABLET PO SCH (09:34)
[2019-03-15] MEDS: DULOXETINE HCL 30 MG CAPSULE.DR PO SCH ×2 (09:34→21:45)
[2019-03-15] MEDS ORDERED: (PENDING PHARMACY ID) (Telmisartan [Telmisartan] 80 MG) PO SCH (10:00)
--- NOTE | 2019-03-15 10:20 | PDOC H&P ---
History of Present Illness Admission Date/PCP: 03/14/19 17:42 BRAD GIVENS MD Patient complains of: Chest pain History of Present Illness: ONDINA ENRIQUEZ is a 73 year old female This is a 73-year-old female is morbidly obese history of the type 2 diabetes insulin-dependent history of the asthma chronic bronchitis hypertension's hyperlipidemia recently admitted for the pneumonia came to the emergency department with the complaining of left-sided chest pain since last 3 to 4 days and getting worse In the emergency department patient EKG initial cardiac enzyme was negative patient's had a CT of the chest was done was negative for any pneumonia which p atients worry about patient have a VQ scan was done also negative for any PE When I saw the patient patient was coughingBut no fever and no chills Patient's still very high risk for coronary disease due to the multiple risk factor and the ER physician discussed with the mens locker room attendant and suggest to admit for further evaluations She is never had any stress test done have a echo done couple of years back was normal EF Patient when I saw in the emergency departments still coughing but other than that no other symptoms and complaining of a left-sided pain Past Medical History Cardiac Medical History: Reports: Congestive Heart Failure, Hyperlipidema, Hypertension Pulmonary Medical History: Reports: Asthma, Chronic Obstructive Pulmonary Disease (COPD), Pneumonia Endocrine Medical History: Reports: Diabetes Mellitus Type 2, Hypothyroidism Renal/ Medical History: Reports: Chronic Kidney Disease, End Stage Renal Disease GI Medical History: Reports: Gastroesophageal Reflux Disease Musculoskeltal Medical History: Reports: Arthritis Psychiatric Medical History: Reports: Depression Hematology: Reports: Anemia Past Surgical History Past Surgical History: Reports: Cholecystectomy, Hysterectomy, Orthopedic Surgery - bilateral knee replacement Denies: Pacemaker Social History Smoking Status: Unknown if Ever Smoked Frequency of Alcohol Use: None Hx Recreational Drug Use: No Drugs: None Hx Prescription Drug Abuse: No Family History Family History: Reviewed & Not Pertinent Parental Family History Reviewed: Yes Children Family History Reviewed: Yes Sibling(s) Family History Reviewed.: Yes Medication/Allergy Home Medications: Atorvastatin Calcium [Lipitor 20 mg Tablet] 20 mg PO QHS 08/04/18 Duloxetine HCl [Cymbalta] 60 mg PO Q12 08/04/18 Levothyroxine Sodium 150 mcg PO Q6AM 08/04/18 Linagliptin [Tradjenta] 5 mg PO QAM 08/04/18 Metoprolol Succinate [Toprol Xl] 200 mg PO QAM 08/04/18 Mirabegron [Myrbetriq] 50 mg PO QAM 08/04/18 Montelukast Sodium [Singulair 10 mg Tablet] 10 mg PO QHS 08/04/18 Omeprazole Magnesium [Prilosec Otc] 20 mg PO Q6AM 08/04/18 Pregabalin [Lyrica] 150 mg PO Q12 08/04/18 Budesonide/Formoterol Fumarate [Symbicort HFA 160-4.5 mcg Inhaler 6 gm] 2 puff IH Q12 #2 inhaler 08/11/18 Furosemide [Lasix 20 mg Tablet] 20 mg PO DAILY 01/19/19 Telmisartan 80 mg PO DAILY 01/19/19 Amlodipine Besylate [Norvasc 5 mg Tablet] 5 mg PO BID 03/14/19 Insulin Glargine,Hum.rec.anlog [Garret Montero U-100] 52 unit SQ QAM 03/14/19 Allergies/Adverse Reactions: aspirin [Aspirin] Allergy (Verified 01/19/19 11:29) Edema, GI UPSET morphine [Morphine] Allergy (Verified 01/19/19 11:29) ANAPHYLAXSIS, Facial swelling Review of Systems Constitutional: ABSENT: chills, fever(s), headache(s), weight gain, weight loss Eyes: ABSENT: visual disturbances Ears: ABSENT: hearing changes Cardiovascular: PRESENT: chest pain, dyspnea on exertion. ABSENT: edema, orthropnea, palpitations Respiratory: PRESENT: cough. ABSENT: hemoptysis Gastrointestinal: ABSENT: abdominal pain, constipation, diarrhea, hematemesis, hematochezia, nausea, vomiting Genitourinary: ABSENT: dysuria, hematuria Musculoskeletal: ABSENT: joint swelling Integumentary: ABSENT: rash, wounds Neurological: ABSENT: abnormal gait, abnormal speech, confusion, dizziness, focal weakness, syncope Psychiatric: ABSENT: anxiety, depression, homidical ideation, suicidal ideation Endocrine: ABSENT: cold intolerance, heat intolerance, menstrual abnormalities, polydipsia, polyuria Hematologic/Lymphatic: ABSENT: easy bleeding, easy bruising, lymphadenopathy Physical Exam Vital Signs: Temp Pulse Resp BP Pulse Ox 97.4 F 63 17 149/59 H 100 03/15/19 07:43 03/15/19 07:56 03/15/19 07:56 03/15/19 07:43 03/15/19 07:56 Intake & Output 03/14/19 03/15/19 03/16/19 06:59 06:59 06:59 Intake Total 170 Output Total 700 Balance -530 Weight 148.2 kg General appearance: PRESENT: no acute distress, well-developed, well-nourished Head exam: PRESENT: atraumatic, normocephalic Eye exam: PRESENT: conjunctiva pink, EOMI, PERRLA. ABSENT: scleral icterus Ear exam: PRESENT: normal external ear exam Mouth exam: PRESENT: moist, tongue midline Neck exam: PRESENT: full ROM. ABSENT: carotid bruit, JVD, lymphadenopathy, thyromegaly Respiratory exam: PRESENT: clear to auscultation carter Cardiovascular exam: PRESENT: RRR. ABSENT: diastolic murmur, rubs, systolic murmur Pulses: PRESENT: normal dorsalis pedis pul, +2 pedal pulses bilateral Vascular exam: PRESENT: normal capillary refill GI/Abdominal exam: PRESENT: normal bowel sounds, soft. ABSENT: distended, guarding, mass, organolmegaly, rebound, tenderness Rectal exam: PRESENT: deferred Neurological exam: PRESENT: alert, awake, oriented to person, oriented to place, oriented to time, oriented to situation, CN II-XII grossly intact. ABSENT: motor sensory deficit Psychiatric exam: PRESENT: appropriate affect, normal mood. ABSENT: homicidal ideation, suicidal ideation Skin exam: PRESENT: dry, intact, warm. ABSENT: cyanosis, rash Results Laboratory Results: 03/15/19 05:36 03/15/19 05:36 03/14/19 03/14/19 03/14/19 16:15 16:15 18:25 WBC 8.3 RBC 3.05 L Hgb 8.9 L Hct 27.6 L MCV 91 MCH 29.1 MCHC 32.1 RDW 15.8 H Plt Count 202 Seg Neutrophils % 69.2 Lymphocytes % 12.1 L Monocytes % 12.6 Eosinophils % 5.3 Basophils % 0.8 Absolute Neutrophils 5.7 Absolute Lymphocytes 1.0 Absolute Monocytes 1.0 Absolute Eosinophils 0.4 Absolute Basophils 0.1 VBG pH VBG pCO2 VBG HCO3 VBG Base Excess Sodium 141.8 Potassium 4.3 Chloride 107 Carbon Dioxide 27 Anion Gap 8 BUN 36 H Creatinine 2.33 H Est GFR ( Amer) 25 L Est GFR (Non-Af Amer) 20 L Glucose 194 H Lactic Acid 0.8 Calcium 8.1 L Magnesium Total Bilirubin 0.3 AST 34 Alkaline Phosphatase 117 Total Protein 6.1 L Albumin 2.9 L Lipase 122.9 03/14/19 03/14/19 03/15/19 18:25 23:30 05:36 WBC RBC Hgb Hct MCV MCH MCHC RDW Plt Count Seg Neutrophils % Lymphocytes % Monocytes % Eosinophils % Basophils % Absolute Neutrophils Absolute Lymphocytes Absolute Monocytes Absolute Eosinophils Absolute Basophils VBG pH Cancelled 7.26 L VBG pCO2 Cancelled 72.3 H* VBG HCO3 Cancelled 31.6 VBG Base Excess Cancelled 2.9 Sodium 143.7 Potassium 4.0 Chloride 104 Carbon Dioxide 32 H Anion Gap 8 BUN 37 H Creatinine 2.39 H Est GFR ( Amer) 24 L Est GFR (Non-Af Amer) 20 L Glucose 201 H Lactic Acid Calcium 8.7 Magnesium 1.6 Total Bilirubin AST Alkaline Phosphatase Total Protein Albumin Lipase 03/15/19 05:36 WBC 7.4 RBC 3.21 L Hgb 9.5 L Hct 29.2 L MCV 91 MCH 29.6 MCHC 32.5 RDW 15.8 H Plt Count 218 Seg Neutrophils % 67.6 Lymphocytes % 15.0 Monocytes % 10.9 Eosinophils % 6.0 Basophils % 0.5 Absolute Neutrophils 5.0 Absolute Lymphocytes 1.1 Absolute Monocytes 0.8 Absolute Eosinophils 0.4 Absolute Basophils 0.0 VBG pH VBG pCO2 VBG HCO3 VBG Base Excess Sodium Potassium Chloride Carbon Dioxide Anion Gap BUN Creatinine Est GFR ( Amer) Est GFR (Non-Af Amer) Glucose Lactic Acid Calcium Magnesium Total Bilirubin AST Alkaline Phosphatase Total Protein Albumin Lipase 03/14/19 03/14/19 03/14/19 16:15 16:15 18:25 Creatine Kinase 793 H 774 H CK-MB (CK-2) 2.07 Troponin I < 0.012 NT-Pro-B Natriuret Pep 4330 H 03/14/19 03/14/19 03/14/19 18:25 23:30 23:30 Creatine Kinase 763 H CK-MB (CK-2) 1.98 2.24 Troponin I < 0.012 < 0.012 NT-Pro-B Natriuret Pep 03/15/19 03/15/19 05:36 05:36 Creatine Kinase 807 H CK-MB (CK-2) 1.95 Troponin I < 0.012 NT-Pro-B Natriuret Pep 3740 H Impressions: Lung Scan-VQ NM 03/14/19 00:00 IMPRESSION: No evidence of pulmonary embolism. Chest X-Ray 03/14/19 14:07 IMPRESSION: NO ACUTE RADIOGRAPHIC FINDING IN THE CHEST. Chest CT 03/14/19 15:04 IMPRESSION: Minimal right pleural effusion. Mild dependent atelectasis in the lower lobes. No pneumonia or other acute finding. Assessment & Plan - Diagnosis (1) Chest pain Qualifiers: Chest pain type: chest pain due to myocardial ischemia Ischemic chest pain type: unspecified angina pectoris type Qualified Code(s): I25.9 - Chronic ischemic heart disease, unspecified Is this a current diagnosis for this admission?: Yes Plan: We will admit the patient's initial work-up including chest CT VQ scan is all negative with the multiple coronary risk factor we will consult the cardiology for further evaluations (2) Asthmatic bronchitis Qualifiers: Asthma severity: moderate Is this a current diagnosis for this admission?: Yes Plan: We will continue some nebulizer treatments consult Dr. Sandoval's with ongoing problem for further evaluations (3) Chronic kidney disease, stage 3 Is this a current diagnosis for this admission?: Yes Plan: Currently stable patient see outpatients Dr. Samano (4) Diabetes mellitus type 2 in obese Is this a current diagnosis for this admission?: Yes Plan: Continues a sliding scale and insulin (5) Hypertension Qualifiers: Hypertension type: essential hypertension Qualified Code(s): I10 - Essent ial (primary) hypertension Is this a current diagnosis for this admission?: Yes Plan: Continue to current medications (6) Hypoventilation associated with obesity Is this a current diagnosis for this admission?: Yes Plan: We will consult the pulmonary for further evaluations (7) Physical deconditioning Is this a current diagnosis for this admission?: Yes Plan: Get the physical therapy evaluations - Time Time Spent: 30 to 50 Minutes Medications reviewed and adjusted accordingly: Yes Anticipated discharge: Other Within: Other - Inpatient Certification Based on my medical assessment, after consideration of the patient's comorbidities, presenting symptoms, or acuity I expect that the services needed warrant INPATIENT care.: Yes I certify that my determination is in accordance with my understanding of Medicare's requirements for reasonable and necessary INPATIENT services [42 CFR 412.3e].: Yes Medical Necessity: Significant Comorbidiites Make Outpatient Treatment Too Risky, Need Close Monitoring Due to Risk of Patient Decompensation, Need for Nebulizer Therapy and Monitoring of Response Post Hospital Care: D/[employer] Documentation - Plan Summary Plan Summary: Discussed with the patient's with the physical deconditions may be helpful to go to the rehab but patients do not want to go to the rehab facilities consult the physical therapy here after the patient's get better and may be consider home health and physical therapy
[2019-03-15] MEDS ORDERED: INSULIN GLARGINE,HUM.REC.ANLOG 1,000 UNIT/10 ML VIAL (PYX) SUBCUT ONE (10:30)
[2019-03-15 11:19] LABS: ARTERIAL BLOOD FIO2 3L; ARTERIAL BLOOD H2CO3 1.63 mmol/L (1.05-1.35); ARTERIAL BLOOD HCO3 27.5 mmol/L (20-24); ARTERIAL BLOOD O2 SATURATION 91.7 % (94-98); ARTERIAL BLOOD PH 7.33 (7.35-7.45); ARTERIAL BLOOD PO2 67.2 mmHg (80-100); ARTERIAL BLOOD TOTAL CO2 29.2 mmol/L (21-25)
[2019-03-15 13:00] LABS: FREE T3 2.87 pg/mL (2.77-5.27); FREE T4 (FREE THYROXINE) 1.66 ng/dL (0.78-2.19)
[2019-03-15 13:14] LABS: THYROID STIMULATING HORMONE 10.3 uIU/mL (0.47-4.68)
--- NOTE | 2019-03-15 19:24 | PDOC CONSULTATION ---
Consultation-Blank Consultation: CARDIOLOGY CONSULTATION by Dr. Melony Clancy on 03/15/2019. Patient seen at 8 AM. 60 minutes spent on this patient with more than 50% of time spent in direct patient care. REASON FOR CONSULTATION: Patient with chest pain. She does have multiple CAD risk factors. CONSULT REQUESTING PHYSICIAN: Dr. Gilbert Britt. HISTORY PRESENT ILLNESS: Patient is a 72-year-old Afro-Spanish female with known history of hypertension, diabetes mellitus,, hypothyroidism on replacement therapy, chronic kidney disease stage IV, admitted with chest pain situated in the left front of the chest and also in the mid chest area. This chest pain is easily reproduced with pressing on the patient's chest. She states any movement s, but not exertion increases the chest pain especially if it involves using a pectoral muscles. The patient appears to be a slow mentation and appears to be very hypothyroid. She states that she is very compliant with taking her medications including her thyroid replacement. There is no prior history of CA. The patient does have orthopnea. She probably has sleep apnea but has not had a sleep study. She has a history of asthma and COPD. No recent symptoms of acute exacerbation or acute asthmatic attack. She denies any palpitations. No syncope the patient does have chronic leg edema which is not increased. She denies any symptoms of TIA CVA. She has a history of chronic pain syndrome with pain in the back and in the joints. Past Medical History Cardiac Medical History: Reports: Congestive Heart Failure, Hyperlipidema, Hypertension Pulmonary Medical History: Reports: Asthma, Chronic Obstructive Pulmonary Disease (COPD), Pneumonia Endocrine Medical History: Reports: Diabetes Mellitus Type 2, Hypothyroidism Renal/ Medical History: Reports: Chronic Kidney GI Medical History: Reports: Gastroesophageal Reflux Disease Musculoskeltal Medical History: Reports: Arthritis Psychiatric Medical History: Reports: Depression Hematology: Reports: Anemia Past Surgical History Past Surgical History: Reports: Cholecystectomy, Hysterectomy, Orthopedic Surgery - bilateral knee replacement Social History Smoking Status: Unknown if Ever Smoked Frequency of Alcohol Use: None Hx Recreational Drug Use: No Drugs: None Hx Prescription Drug Abuse: No Family History Family History: Positive for premature coronary artery disease, with her father sustaining a myocardial infarction at age 42. There is also a history of hypertension and diabetes mellitus. Medication/Allergy Home Medications: Atorvastatin Calcium [Lipitor 20 mg Tablet] 20 mg PO QHS 12/26/18 Duloxetine HCl [Cymbalta] 60 mg PO Q12 08/04/18 Levothyroxine Sodium 150 mcg PO Q6AM 08/04/18 Linagliptin [Tradjenta] 5 mg PO QAM 08/04/18 Metoprolol Succinate [Toprol Xl] 200 mg PO QAM 08/04/18 Mirabegron [Myrbetriq] 50 mg PO QAM 08/04/18 Montelukast Sodium [Singulair 10 mg Tablet] 10 mg PO QHS 08/04/18 Omeprazole Magnesium [Prilosec Otc] 20 mg PO Q6AM 08/04/18 Pregabalin [Lyrica] 150 mg PO Q12 08/04/18 Budesonide/Formoterol Fumarate [Symbicort HFA 160-4.5 mcg Inhaler 6 gm] 2 puff IH Q12 #2 inhaler 08/11/18 Furosemide [Lasix 20 mg Tablet] 20 mg PO DAILY 01/19/19 Telmisartan 80 mg PO DAILY 01/19/19 Amlodipine Besylate [Norvasc 5 mg Tablet] 5 mg PO BID 03/14/19 Insulin Glargine,Hum.rec.anlog [Basaglar Kwikpen U-100] 52 unit SQ QAM 03/14/19 Allergies/Adverse Reactions: aspirin [Aspirin] Allergy:Eema, GI UPSET.morphine [Morphine] ANAPHYLAXSIS, Facial swelling Review of Systems Constitutional: ABSENT: chills, fever(s), headache(s), weight gain, weight loss Eyes: ABSENT: visual disturbances Ears: ABSENT: hearing changes Cardiovascular: PRESENT: chest pain, dyspnea on exertion. ABSENT: edema, orthropnea, palpitations Respiratory: PRESENT: cough. ABSENT: hemoptysis Gastrointestinal: ABSENT: abdominal pain, constipation, diarrhea, hematemesis, hematochezia, nausea, vomiting Genitourinary: ABSENT: dysuria, hematuria Musculoskeletal: ABSENT: joint swelling Integumentary: ABSENT: rash, wounds Neurological: ABSENT: abnormal gait, abnormal speech, confusion, dizziness, focal weakness, syncope Psychiatric: ABSENT: anxiety, depression, homidical ideation, suicidal ideation Endocrine: ABSENT: cold intolerance, heat intolerance, menstrual abnormalities, polydipsia, polyuria Hematologic/Lymphatic: ABSENT: easy bleeding, easy bruising, lymphadenopathy On examination the patient is lethargic and of slow mentation. She is morbidly obese. She has reproducible chest wall pain which fully reproduces her chest pain symptoms completely. Selected Entries 03/15/19 07:43 Temperature 97.4 F Temperature Oral Source Pulse Rate 64 Respiratory 22 H Rate Blood Pressure 149/59 H Blood Pressure 89 Mean BP Location Left Arm BP Position Supine O2 Sat by Pulse 96 Oximetry Oxygen Flow 5.00 Rate Oxygen Delivery Nasal Cannula Method HEAD: Is atraumatic normocephalic. EYES: Pupils are equal round regular reactive to light and accommodation. Extraocular movements are normal. There is no conjunctival pallor. There is no scleral icterus. EARS: Tympanic membranes are intact. External auditory canals are clear. NOSE: There is no deviated nasal septum. There is no inflammation nasal mucous membrane. MOUTH: The patient's Mallampati classification is class IV. Mucous memories of mouth are moist. Tongue is moist. There is no ulcers. There is no bleeding from the gums. THROAT: There is no redness of the oropharynx there is no exudates in the throat. SKIN: There is no skin lesions or skin rashes. There is no petechia or ecchymosis. NECK: Is supple. There is no JVD. Carotids are equal there is no bruits. There is no lymphadenopathy. There is no goiter. There is no accessory muscle respiration use. Trachea central. LUNGS: Shows diminished air entry and prolonged expiration without any rhonchi rales or wheezing. On palpation there is tenderness reproducing the patient's symptoms presenting symptoms of chest pain with palpation of the left front of the chest wall and the sternal. On percussion there is hyperresonance. HEART: S1-S2 is heard. There is no S3 gallop. There is no S4 gallop. There is systolic murmur left sternal border and the apex there is no rub. ABDOMEN: Is obese. Nontender. There is no hepatosplenomegaly. Bowel sounds are well heard. EXTREMITIES: Femorals are very deep femorals are diminished. Leg pulses are diminished there is chronic mild bilateral edema present. There is venous stasis dermatitis changes. There is no cyanosis or clubbing. There is no calf tenderness. [employer]CH[employer]: The patient is of slow mentation. But moves all 4 extremities. PSYCHIATRIC: The patient appears to be lethargic her mentation is very slow. She is not agitated or anxious. Current Medications Generic Name Dose Route Start Last Admin Trade Name Freq PRN Reason Stop Dose Admin Acetaminophen 650 mg 03/14/19 17:34 Tylenol 325 Mg Tablet PO 04/13/19 17:33 Q4HP PRN FOR PAIN OR TEMP Albuterol/Ipratropium 3 ml 03/14/19 20:00 03/15/19 16:22 Duoneb 3 Ml Ampul NEB 04/13/19 19:59 3 ml [id number] SVITLANA Administration Amlodipine Besylate 5 mg 03/14/19 22:00 03/15/19 09:33 Norvasc 5 Mg Tablet PO 04/13/19 21:59 5 mg Q12 SVITLANA Administration Atorvastatin Calcium 20 mg 03/14/19 22:00 03/14/19 22:56 Lipitor 20 Mg Tablet PO 04/13/19 21:59 20 mg QHS SVITLANA Administration Dextrose 12.5 gm 03/14/19 17:38 Dextrose Inj 50% Syringe (25 Gm/50 Ml) IV 04/13/19 17:37 PRN PRN FOR BG 50-69 IN ALERT PATIENT Protocol Dextrose 25 gm 03/14/19 17:38 Dextrose Inj 50% Syringe (25 Gm/50 Ml) IV 04/13/19 17:37 PRN PRN PER PROTOCOL Protocol Doxycycline Hyclate 100 mg 03/14/19 18:00 03/15/19 18:10 Vibramycin 100 Mg Tablet PO 03/21/19 17:59 100 mg BID SVITLANA Administration Duloxetine HCl 60 mg 03/14/19 22:00 03/15/19 09:34 Cymbalta 30 Mg Capsule. PO 04/13/19 21:59 60 mg Q12 SVITLANA Administration Famotidine 20 mg 03/14/19 22:00 03/15/19 09:33 Pepcid 20 Mg Tablet PO 04/13/19 21:59 20 mg Q12 SVITLANA Administration Fluticasone/Vilanterol 1 inh 03/15/19 10:00 03/15/19 09:33 Breo 200-25 Mcg Ellipta 14 Dose/Dpi IH 04/14/19 09:59 1 inhaler DAILY SVITLANA Administration Furosemide 20 mg 03/15/19 10:00 03/15/19 09:34 Lasix 20 Mg Tablet PO 04/14/19 09:59 20 mg DAILY SVITLANA Administration Glucagon 1 mg 03/14/19 17:38 Glucagen Inj 1 Mg Vial IM 04/13/19 17:37 PRN PRN Evaluate for BG < 70 Protocol Glucose 15 gm 03/14/19 17:38 Glutose 40% Gel 15 Gm Tube PO 04/13/19 17:37 PRN PRN FOR BG 50-69 IN ALERT PATIENT Protocol Glucose 30 gm 03/14/19 17:38 Glutose 40% Gel 15 Gm Tube PO 04/13/19 17:37 PRN PRN FOR BG < 50 IN ALERT PATIENT Protocol Heparin Sodium (Porcine) 5,000 unit 03/14/19 22:00 03/15/19 14:30 Heparin Inj 5,000 Units/Ml 1 Ml Vial SUBCUT 04/13/19 21:59 5,000 unit Q8 SVITLANA Administration Insulin Glargine 52 unit 03/15/19 10:00 03/15/19 10:45 Lantus Insulin 100 Unit/1 Ml 10 Ml SUBCUT 04/14/19 09:59 Not Given DAILY SVITLANA Insulin Human Lispro 0 - 12 unit 03/14/19 22:00 03/15/19 18:10 Humalog Insulin 100 Unit/1 Ml 3 Ml Vial SUBCUT 04/13/19 21:59 2 unit ACHS SVITLANA Administration Protocol Levothyroxine Sodium 0.025 mg 03/16/19 06:00 Synthroid 0.025 Mg Tablet PO 04/15/19 05:59 Q6AM SVITLANA Levothyroxine Sodium 0.15 mg 03/16/19 06:00 Synthroid 0.15 Mg Tablet PO 04/15/19 05:59 Q6AM SVITLANA Losartan Potassium 100 mg 03/15/19 10:00 03/15/19 09:34 Cozaar 50 Mg Tablet PO 04/14/19 09:59 100 mg DAILY SVITLANA Administration Metoprolol Succinate 200 mg 03/15/19 08:00 03/15/19 08:47 Toprol Xl 50 Mg Tab.Sr PO 04/14/19 07:59 200 mg QAM SVITLANA Administration Montelukast Sodium 10 mg 03/14/19 22:00 03/14/19 22:56 Singulair 10 Mg Tablet PO 04/13/19 21:59 10 mg QHS SVITLANA Administration Patient Own Medication 50 mg 03/15/19 08:00 Mirabegron [Myrbetriq] PO 04/14/19 07:59 QAM SVITLANA Pregabalin 150 mg 03/14/19 22:00 03/15/19 09:33 Lyrica 75 Mg Capsule PO 04/13/19 21:59 150 mg Q12 SVITLANA Administration Sitagliptin Phosphate 50 mg 03/15/19 10:00 03/15/19 09:34 Januvia 50 Mg Tablet PO 04/14/19 09:59 50 mg DAILY SVITLANA Administration Discontinued Medications Generic Name Dose Route Start Last Admin Trade Name Geraldo STRICKLAND Reason Stop Dose Admin Furosemide Confirm 03/15/19 06:12 03/15/19 06:48 Lasix Inj/Pf 40 Mg/4 Ml Sdv Administered 03/15/19 06:13 Not Given Dose 40 mg .ROUTE .STK-MED ONE Ceftriaxone Sodium/Dextrose 1 gm in 50 mls @ 100 mls/hr 03/14/19 17:33 03/14/19 18:20 Rocephin Rtu 1 Gm/D5w 50 Ml Premix IV 03/14/19 18:02 Infused NOW ONE Infusion Insulin Glargine 52 unit 03/15/19 08:00 Lantus Insulin 100 Unit/1 Ml 10 Ml SUBCUT 04/14/19 07:59 QAM SVITLANA Insulin Glargine 52 unit 03/15/19 10:30 03/15/19 10:56 Lantus (Pyxis) Insulin 100 Unit/1 Ml 10 Ml SUBCUT 03/15/19 10:31 52 unit NOW ONE Administration Levothyroxine Sodium 0.15 mg 03/15/19 06:00 03/15/19 05:25 Synthroid 0.15 Mg Tablet PO 04/14/19 05:59 0.15 mg Q6AM SVITLANA Administration Pantoprazole Sodium 20 mg 03/15/19 06:00 03/15/19 05:[address] Tablet PO 04/14/19 05:59 20 mg Q6AM SVITLANA Administration Labs- All tests 24 hr 03/14/19 03/14/19 03/14/19 18:25 18:25 18:25 WBC RBC Hgb Hct MCV MCH MCHC RDW Plt Count Seg Neutrophils % Lymphocytes % Monocytes % Eosinophils % Basophils % Absolute Neutrophils Absolute Lymphocytes Absolute Monocytes Absolute Eosinophils Absolute Basophils Carbonic Acid HCO3/H2CO3 Ratio ABG pH ABG pCO2 ABG pO2 ABG HCO3 ABG Total CO2 ABG O2 Saturation ABG Base Excess VBG pH VBG pCO2 VBG HCO3 VBG Base Excess FiO2 Sodium Potassium Chloride Carbon Dioxide Anion Gap BUN Creatinine Est GFR ( Amer) Est GFR (Non-Af Amer) Glucose POC Glucose Lactic Acid 0.8 Calcium Magnesium Creatine Kinase 774 H CK-MB (CK-2) 1.98 Troponin I < 0.012 NT-Pro-B Natriuret Pep TSH Free T4 Free T3 pg/mL Random Cortisol 03/14/19 03/14/19 03/14/19 21:13 23:30 23:30 WBC RBC Hgb Hct MCV MCH MCHC RDW Plt Count Seg Neutrophils % Lymphocytes % Monocytes % Eosinophils % Basophils % Absolute Neutrophils Absolute Lymphocytes Absolute Monocytes Absolute Eosinophils Absolute Basophils Carbonic Acid HCO3/H2CO3 Ratio ABG pH ABG pCO2 ABG pO2 ABG HCO3 ABG Total CO2 ABG O2 Saturation ABG Base Excess VBG pH VBG pCO2 VBG HCO3 VBG Base Excess FiO2 Sodium Potassium Chloride Carbon Dioxide Anion Gap BUN Creatinine Est GFR ( Amer) Est GFR (Non-Af Amer) Glucose POC Glucose 159 H Lactic Acid Calcium Magnesium Creatine Kinase 763 H CK-MB (CK-2) 2.24 Troponin I < 0.012 NT-Pro-B Natriuret Pep TSH Free T4 Free T3 pg/mL Random Cortisol 03/14/19 03/15/19 03/15/19 23:30 05:36 05:36 WBC RBC Hgb Hct MCV MCH MCHC RDW Plt Count Seg Neutrophils % Lymphocytes % Monocytes % Eosinophils % Basophils % Absolute Neutrophils Absolute Lymphocytes Absolute Monocytes Absolute Eosinophils Absolute Basophils Carbonic Acid HCO3/H2CO3 Ratio ABG pH ABG pCO2 ABG pO2 ABG HCO3 ABG Total CO2 ABG O2 Saturation ABG Base Excess VBG pH 7.26 L VBG pCO2 72.3 H* VBG HCO3 31.6 VBG Base Excess 2.9 FiO2 Sodium 143.7 Potassium 4.0 Chloride 104 Carbon Dioxide 32 H Anion Gap 8 BUN 37 H Creatinine 2.39 H Est GFR ( Amer) 24 L Est GFR (Non-Af Amer) 20 L Glucose 201 H POC Glucose Lactic Acid Calcium 8.7 Magnesium 1.6 Creatine Kinase 807 H CK-MB (CK-2) 1.95 Troponin I < 0.012 NT-Pro-B Natriuret Pep 3740 H TSH Free T4 Free T3 pg/mL Random Cortisol 03/15/19 03/15/19 03/15/19 05:36 05:36 05:36 WBC 7.4 RBC 3.21 L Hgb 9.5 L Hct 29.2 L MCV 91 MCH 29.6 MCHC 32.5 RDW 15.8 H Plt Count 218 Seg Neutrophils % 67.6 Lymphocytes % 15.0 Monocytes % 10.9 Eosinophils % 6.0 Basophils % 0.5 Absolute Neutrophils 5.0 Absolute Lymphocytes 1.1 Absolute Monocytes 0.8 Absolute Eosinophils 0.4 Absolute Basophils 0.0 Carbonic Acid HCO3/H2CO3 Ratio ABG pH ABG pCO2 ABG pO2 ABG HCO3 ABG Total CO2 ABG O2 Saturation ABG Base Excess VBG pH VBG pCO2 VBG HCO3 VBG Base Excess FiO2 Sodium Potassium Chloride Carbon Dioxide Anion Gap BUN Creatinine Est GFR ( Amer) Est GFR (Non-Af Amer) Glucose POC Glucose Lactic Acid Calcium Magnesium Creatine Kinase CK-MB (CK-2) Troponin I NT-Pro-B Natriuret Pep TSH Cancelled Free T4 Cancelled Free T3 pg/mL Cancelled Random Cortisol 18.10 03/15/19 03/15/19 03/15/19 07:41 10:55 11:28 WBC RBC Hgb Hct MCV MCH MCHC RDW Plt Count Seg Neutrophils % Lymphocytes % Monocytes % Eosinophils % Basophils % Absolute Neutrophils Absolute Lymphocytes Absolute Monocytes Absolute Eosinophils Absolute Basophils Carbonic Acid 1.63 H HCO3/H2CO3 Ratio 16:1 ABG pH 7.33 L ABG pCO2 54.0 H ABG pO2 67.2 L ABG HCO3 27.5 H ABG Total CO2 29.2 H ABG O2 Saturation 91.7 L ABG Base Excess 1.0 VBG pH VBG pCO2 VBG HCO3 VBG Base Excess FiO2 3L Sodium Potassium Chloride Carbon Dioxide Anion Gap BUN Creatinine Est GFR ( Amer) Est GFR (Non-Af Amer) Glucose POC Glucose 176 H 148 H Lactic Acid Calcium Magnesium Creatine Kinase CK-MB (CK-2) Troponin I NT-Pro-B Natriuret Pep TSH Free T4 Free T3 pg/mL Random Cortisol 03/15/19 03/15/19 11:55 16:22 WBC RBC Hgb Hct MCV MCH MCHC RDW Plt Count Seg Neutrophils % Lymphocytes % Monocytes % Eosinophils % Basophils % Absolute Neutrophils Absolute Lymphocytes Absolute Monocytes Absolute Eosinophils Absolute Basophils Carbonic Acid HCO3/H2CO3 Ratio ABG pH ABG pCO2 ABG pO2 ABG HCO3 ABG Total CO2 ABG O2 Saturation ABG Base Excess VBG pH VBG pCO2 VBG HCO3 VBG Base Excess FiO2 Sodium Potassium Chloride Carbon Dioxide Anion Gap BUN Creatinine Est GFR ( Amer) Est GFR (Non-Af Amer) Glucose POC Glucose 162 H Lactic Acid Calcium Magnesium Creatine Kinase CK-MB (CK-2) Troponin I NT-Pro-B Natriuret Pep TSH 10.30 H Free T4 1.66 Free T3 pg/mL 2.87 Random Cortisol Lung Scan-VQ NM 03/14/19 00:00 IMPRESSION: No evidence of pulmonary embolism. Chest X-Ray 03/14/19 14:07 IMPRESSION: NO ACUTE RADIOGRAPHIC FINDING IN THE CHEST. Chest CT 03/14/19 15:04 IMPRESSION: Minimal right pleural effusion. Mild dependent atelectasis in the lower lobes. No pneumonia or other acute finding. The patient is initial EKG shows sinus rhythm. Baseline artifact. Poor R wave leads V1 to V6 possibly secondary to the patient thick chest wall versus old anteroseptal CA. The second EKG also shows sinus rhythm. With poor R wave as an first EKG with the differential being the same. IMPRESSION/RECOMMENDATION: 1. Chest pain no acute changes and negative cardiac biomarkers, with a chest pain easily reproducible with pressing on the chest hence clearly noncardiac. 2. Hypothyroidism: Patient's hypothyroid. The patient's TSH is 10.3. Would recommend increase the patient's thyroid replacement. 3. Hypertension: Blood pressure well controlled. Continue Toprol and her BERNICE inhibitor. 4. Diabetes mellitus with chronic kidney disease: Continue anti-diabetic me dications and serial Accu-Cheks. 5. Chronic kidney disease stage IV: Avoid nephrotoxic drugs. 6. Chronic pain syndrome: Continue the patient's Lyrica. 7. History of asthma/COPD: At present no evidence of acute exacerbation of either states. 8. Symptoms of obstructive sleep apnea: Patient may benefit from outpatient sleep study. 9. Hyperlipidemia: Continue statins. Check lipid levels. 10. Multiple CAD risk factors including age, hypertension, diabetes mellitus, hyperlipidemia, and family history of premature coronary artery disease. Once the patient is made euthyroid would recommend getting IV Lexiscan Cardiolite stress test as an outpatient. Medications reviewed. Management plan discussed with the attending physician on the case. Medical decision making is of high complexity decision making that the cardiac status is stable, and that the chest pain is noncardiac. This is due to the patient having multiple risk factors, and the patient not a very good historian due to slow mentation most likely secondary to a hypothyroid state. At present cardiac status is stable will sign off as discussed with attending physician. Patient will need close cardiology follow-up as an outpatient.
[2019-03-15] MEDS: MONTELUKAST SODIUM 10 MG TABLET PO SCH (21:45)
[2019-03-15] MEDS: ATORVASTATIN CALCIUM 20 MG TABLET PO SCH (21:45)
[2019-03-16 04:50] LABS: ABSOLUTE BASOPHILS # (AUTO) 0.1 10^3/uL (0.0-0.2); ABSOLUTE EOSINOPHILS # (AUTO) 0.4 10^3/uL (0.0-0.6); ABSOLUTE LYMPHOCYTES (AUTO) 1.2 10^3/uL (0.5-4.7); ABSOLUTE MONOCYTES (AUTO) 0.9 10^3/uL (0.1-1.4); ABSOLUTE NEUT (AUTO) 5.2 10^3/uL (1.7-8.2); BASOPHILS % (AUTO) 1.3 % (0-2); EOSINOPHILS % (AUTO) 5.2 % (0-6); HEMATOCRIT 30.1 % (36.0-47.0); HEMOGLOBIN 9.6 g/dL (12.0-15.5); MEAN CORPUSCULAR HEMOGLOBIN 28.4 pg (27.0-33.4); MEAN CORPUSCULAR HGB CONC 31.8 g/dL (32.0-36.0); MEAN CORPUSCULAR VOLUME 90 fl (80-97); MONOCYTES % (AUTO) 11.1 % (3-13); PLATELET COUNT 224 10^3/uL (150-450); RED BLOOD COUNT 3.36 10^6/uL (3.72-5.28); RED CELL DISTRIBUTION WIDTH 15.6 % (11.5-14.0); SEGMENTED NEUTROPHILS % (AUTO) 67.4 % (42-78); TOTAL CELLS COUNTED % (AUTO) 100 %; WHITE BLOOD COUNT 7.8 10^3/uL (4.0-10.5)
[2019-03-16 05:03] LABS: ANION GAP 5 (5-19); BLOOD UREA NITROGEN 35 mg/dL (7-20); CALCIUM 8.5 mg/dL (8.4-10.2); CARBON DIOXIDE 33 mmol/L (22-30); CHLORIDE 106 mmol/L (98-107); POTASSIUM 4.2 mmol/L (3.6-5.0)
[2019-03-16 05:09] LABS: GLUCOSE 69 mg/dL (75-110)
[2019-03-16] MEDS: LEVOTHYROXINE SODIUM 0.025 MG TABLET PO SCH (05:14)
[2019-03-16] MEDS: LEVOTHYROXINE SODIUM 0.15 MG TABLET PO SCH (05:14)
[2019-03-16] MEDS: HEPARIN SOD (PORCINE) 5,000 UNIT/ML 1 ML VIAL SUBCUT SCH ×3 (05:14→22:22)
[2019-03-16 06:02] LABS: ARTERIAL BLOOD BASE EXCESS 0.2 mmol/L; ARTERIAL BLOOD H2CO3 1.73 mmol/L (1.05-1.35); ARTERIAL BLOOD HCO3 27.4 mmol/L (20-24); ARTERIAL BLOOD O2 SATURATION 97.2 % (94-98); ARTERIAL BLOOD PCO2 57.4 mmHg (35-45); ARTERIAL BLOOD PO2 105.8 mmHg (80-100); ARTERIAL BLOOD TOTAL CO2 29.2 mmol/L (21-25)
[2019-03-16 06:03] LABS: ARTERIAL BLOOD FIO2 5L
[2019-03-16] MEDS: IPRATROPIUM/ALBUTEROL 0.5-2.5 MG/3 ML AMPUL NEB SCH ×4 (07:45→20:43)
[2019-03-16] MEDS: METOPROLOL SUCCINATE 50 MG TAB.SR.24H PO SCH (08:39)
[2019-03-16] MEDS: INSULIN LISPRO 100 UNIT/ML 3 ML VIAL SUBCUT SCH ×4 (08:39→22:23)
--- NOTE | 2019-03-16 10:23 | PDOC PROGRESS REPORT ---
Subjective Progress Note for:: 03/16/19 Subjective:: Patient is currently doing well Consistently wear the BiPAP last night Denied any chest pain denied any shortness of the breath blood sugar was very low this morning Reason For Visit: CHEST PAIN/BRONCHITIS Physical Exam Vital Signs: Temp Pulse Resp BP Pulse Ox 97.3 F 57 L 20 158/70 H 97 03/16/19 07:51 03/16/19 08:18 03/16/19 08:18 03/16/19 07:51 03/16/19 08:18 Pulse Oximeter Continuous Start: 03/15/19 16:11 Freq: RTQ4 Status: Active Protocol: Document 03/16/19 08:18 NSM (Rec: 03/16/19 08:19 NSM [id number]) Pulse Oximetry Assessment Oxygen Saturation (92-100) 97 Oxygen Flow Rate (L/min) 4 Oxygen Delivery Method Nasal Cannula Fraction of Inspired Oxygen (FIO2) 36 Equipment Usage Equipment Standby Continuous SpO2 Machine # N1 Intake & Output 03/15/19 03/16/19 03/17/19 06:59 06:59 06:59 Intake Total 170 804 Output Total 700 120 Balance -530 684 Weight 148.2 kg 151.3 kg General appearance: PRESENT: no acute distress, well-developed, well-nourished Head exam: PRESENT: atraumatic, normocephalic Eye exam: PRESENT: conjunctiva pink, EOMI, PERRLA. ABSENT: scleral icterus Ear exam: PRESENT: normal external ear exam Mouth exam: PRESENT: moist, tongue midline Neck exam: PRESENT: full ROM. ABSENT: carotid bruit, JVD, lymphadenopathy, thyromegaly Respiratory exam: PRESENT: clear to auscultation carter Cardiovascular exam: PRESENT: RRR. ABSENT: diastolic murmur, rubs, systolic murmur Pulses: PRESENT: normal dorsalis pedis pul, +2 pedal pulses bilateral Vascular exam: PRESENT: normal capillary refill GI/Abdominal exam: PRESENT: normal bowel sounds, soft. ABSENT: distended, guarding, mass, organolmegaly, rebound, tenderness Rectal exam: PRESENT: deferred Neurological exam: PRESENT: alert, awake, oriented to person, oriented to place, oriented to time, oriented to situation, CN II-XII grossly intact. ABSENT: motor sensory deficit Psychiatric exam: PRESENT: appropriate affect, normal mood. ABSENT: homicidal ideation, suicidal ideation Skin exam: PRESENT: dry, intact, warm. ABSENT: cyanosis, rash Results Laboratory Results: 03/16/19 03:52 03/16/19 03:52 03/15/19 03/15/19 03/15/19 05:36 10:55 11:55 WBC RBC Hgb Hct MCV MCH MCHC RDW Plt Count Seg Neutrophils % Lymphocytes % Monocytes % Eosinophils % Basophils % Absolute Neutrophils Absolute Lymphocytes Absolute Monocytes Absolute Eosinophils Absolute Basophils Carbonic Acid 1.63 H HCO3/H2CO3 Ratio 16:1 ABG pH 7.33 L ABG pCO2 54.0 H ABG pO2 67.2 L ABG HCO3 27.5 H ABG O2 Saturation 91.7 L ABG Base Excess 1.0 FiO2 3L Sodium Potassium Chloride Carbon Dioxide Anion Gap BUN Creatinine Est GFR ( Amer) Est GFR (Non-Af Amer) Glucose Calcium TSH Cancelled 10.30 H Free T4 Cancelled 1.66 Free T3 pg/mL Cancelled 2.87 03/16/19 03/16/19 03/16/19 03:52 03:52 05:30 WBC 7.8 RBC 3.36 L Hgb 9.6 L Hct 30.1 L MCV 90 MCH 28.4 MCHC 31.8 L RDW 15.6 H Plt Count 224 Seg Neutrophils % 67.4 Lymphocytes % 15.0 Monocytes % 11.1 Eosinophils % 5.2 Basophils % 1.3 Absolute Neutrophils 5.2 Absolute Lymphocytes 1.2 Absolute Monocytes 0.9 Absolute Eosinophils 0.4 Absolute Basophils 0.1 Carbonic Acid 1.73 H HCO3/H2CO3 Ratio 15:1 ABG pH 7.30 L ABG pCO2 57.4 H ABG pO2 105.8 H ABG HCO3 27.4 H ABG O2 Saturation 97.2 ABG Base Excess 0.2 FiO2 5L Sodium 143.9 Potassium 4.2 Chloride 106 Carbon Dioxide 33 H Anion Gap 5 BUN 35 H Creatinine 2.11 H Est GFR ( Amer) 28 L Est GFR (Non-Af Amer) 23 L Glucose 69 L Calcium 8.5 TSH Free T4 Free T3 pg/mL 03/14/19 03/14/19 03/14/19 16:15 16:15 18:25 Creatine Kinase 793 H 774 H CK-MB (CK-2) 2.07 Troponin I < 0.012 NT-Pro-B Natriuret Pep 4330 H 03/14/19 03/14/19 03/14/19 18:25 23:30 23:30 Creatine Kinase 763 H CK-MB (CK-2) 1.98 2.24 Troponin I < 0.012 < 0.012 NT-Pro-B Natriuret Pep 03/15/19 03/15/19 05:36 05:36 Creatine Kinase 807 H CK-MB (CK-2) 1.95 Troponin I < 0.012 NT-Pro-B Natriuret Pep 3740 H Impressions: Lung Scan-VQ NM 03/14/19 00:00 IMPRESSION: No evidence of pulmonary embolism. Chest X-Ray 03/14/19 14:07 IMPRESSION: NO ACUTE RADIOGRAPHIC FINDING IN THE CHEST. Chest CT 03/14/19 15:04 IMPRESSION: Minimal right pleural effusion. Mild dependent atelectasis in the lower lobes. No pneumonia or other acute finding. Assessment & Plan - Diagnosis (1) Chest pain Qualifiers: Chest pain type: chest pain due to myocardial ischemia Ischemic chest pain type: unspecified angina pectoris type Qualified Code(s): I25.9 - Chronic ischemic heart disease, unspecified Is this a current diagnosis for this admission?: Yes Plan: As per discussed with the relay checker cardiac standpoint patient is cleared follow outpatient (2) Asthmatic bronchitis Qualifiers: Asthma severity: moderate Is this a current diagnosis for this admission?: Yes Plan: We will continue some nebulizer treatments consult Dr. Sandoval's with ongoing problem for further evaluations (3) Chronic kidney disease, stage 3 Is this a current diagnosis for this admission?: Yes Plan: Currently stable patient see outpatients Dr. Samano (4) Diabetes mellitus type 2 in obese Is this a current diagnosis for this admission?: Yes Plan: Currently need to readjust the insurance will hold the Lyme test and will be needs to be due at nighttime lower dose (5) Hypertension Qualifiers: Hypertension type: essential hypertension Qualified Code(s): I10 - Essential (primary) hypertension Is this a current diagnosis for this admission?: Yes Plan: Continue to current medications (6) Hypoventilation associated with obesity Is this a current diagnosis for this admission?: Yes Plan: We will consult the pulmonary for further evaluations (7) Physical deconditioning Is this a current diagnosis for this admission?: Yes Plan: Get the physical therapy evaluations (8) Acute hypercapnic respiratory failure Is this a current diagnosis for this admission?: Yes Plan: Will get the ABG put on the BiPAP consult the Dr. Sandoval's as per discussed with him and he suggest patients might go with the some kind of a BiPAP or trilogy at home - Time Time Spent with patient: 15-24 minutes Medications reviewed and adjusted accordingly: Yes Anticipated discharge: Home with Homehealth Within: Other - Plan Summary Plan Summary: Patients do not want to go to the nursing facilities patient is very physically deconditioned started on how she can do at home's we will consult the systems planner to further evaluate
[2019-03-16] MEDS: PREGABALIN 75 MG CAPSULE PO SCH ×2 (10:45→22:23)
[2019-03-16] MEDS: DULOXETINE HCL 30 MG CAPSULE.DR PO SCH ×2 (10:45→22:23)
[2019-03-16] MEDS: LOSARTAN POTASSIUM 50 MG TABLET PO SCH (10:45)
[2019-03-16] MEDS: SITAGLIPTIN PHOSPHATE 50 MG TABLET PO SCH (10:45)
[2019-03-16] MEDS: AMLODIPINE BESYLATE 5 MG TABLET PO SCH ×2 (10:45→22:23)
[2019-03-16] MEDS: DOXYCYCLINE HYCLATE 100 MG TABLET PO SCH ×2 (10:45→17:34)
[2019-03-16] MEDS: FLUTICASONE/VILANTEROL 200-25 MCG/DOSE IH SCH (10:45)
[2019-03-16] MEDS: FAMOTIDINE 20 MG TABLET PO SCH (10:45)
[2019-03-16] MEDS: FUROSEMIDE 20 MG TABLET PO SCH (10:45)
[2019-03-16] MEDS ORDERED: HYDRALAZINE HCL INJ/PF 20 MG/1 ML SDV IV PRN (17:25)
[2019-03-16] MEDS ORDERED: METOPROLOL SUCCINATE 50 MG TAB.SR.24H PO ONE (18:00)
[2019-03-16] MEDS: MONTELUKAST SODIUM 10 MG TABLET PO SCH (22:23)
[2019-03-16] MEDS: ATORVASTATIN CALCIUM 20 MG TABLET PO SCH (22:23)
[2019-03-17 05:31] LABS: ABSOLUTE EOSINOPHILS # (AUTO) 0.4 10^3/uL (0.0-0.6); ABSOLUTE LYMPHOCYTES (AUTO) 1.1 10^3/uL (0.5-4.7); ABSOLUTE MONOCYTES (AUTO) 0.9 10^3/uL (0.1-1.4); ABSOLUTE NEUT (AUTO) 4.9 10^3/uL (1.7-8.2); BASOPHILS % (AUTO) 0.6 % (0-2); EOSINOPHILS % (AUTO) 5.5 % (0-6); HEMATOCRIT 29.6 % (36.0-47.0); HEMOGLOBIN 9.6 g/dL (12.0-15.5); MEAN CORPUSCULAR HEMOGLOBIN 29.3 pg (27.0-33.4); MEAN CORPUSCULAR HGB CONC 32.5 g/dL (32.0-36.0); MEAN CORPUSCULAR VOLUME 90 fl (80-97); MONOCYTES % (AUTO) 12.1 % (3-13); PLATELET COUNT 213 10^3/uL (150-450); RED BLOOD COUNT 3.28 10^6/uL (3.72-5.28); RED CELL DISTRIBUTION WIDTH 15.8 % (11.5-14.0); SEGMENTED NEUTROPHILS % (AUTO) 66.8 % (42-78); TOTAL CELLS COUNTED % (AUTO) 100 %; WHITE BLOOD COUNT 7.3 10^3/uL (4.0-10.5)
[2019-03-17 05:35] LABS: ANION GAP 5 (5-19); BLOOD UREA NITROGEN 32 mg/dL (7-20); CALCIUM 8.5 mg/dL (8.4-10.2); CARBON DIOXIDE 33 mmol/L (22-30); CHLORIDE 105 mmol/L (98-107); GLUCOSE 129 mg/dL (75-110); POTASSIUM 4.5 mmol/L (3.6-5.0)
[2019-03-17] MEDS: LEVOTHYROXINE SODIUM 0.15 MG TABLET PO SCH (05:43)
[2019-03-17] MEDS: HEPARIN SOD (PORCINE) 5,000 UNIT/ML 1 ML VIAL SUBCUT SCH ×3 (05:43→22:04)
[2019-03-17] MEDS: LEVOTHYROXINE SODIUM 0.025 MG TABLET PO SCH (05:44)
[2019-03-17] MEDS: IPRATROPIUM/ALBUTEROL 0.5-2.5 MG/3 ML AMPUL NEB SCH ×4 (07:49→20:18)
[2019-03-17] MEDS: INSULIN LISPRO 100 UNIT/ML 3 ML VIAL SUBCUT SCH ×4 (07:50→21:51)
[2019-03-17] MEDS: METOPROLOL SUCCINATE 50 MG TAB.SR.24H PO SCH (08:48)
[2019-03-17] MEDS: PREGABALIN 75 MG CAPSULE PO SCH ×2 (09:25→22:05)
[2019-03-17] MEDS: LOSARTAN POTASSIUM 50 MG TABLET PO SCH (09:25)
[2019-03-17] MEDS: DOXYCYCLINE HYCLATE 100 MG TABLET PO SCH ×2 (09:25→17:58)
[2019-03-17] MEDS: DULOXETINE HCL 30 MG CAPSULE.DR PO SCH ×2 (09:25→22:05)
[2019-03-17] MEDS: METOPROLOL TARTRATE 50 MG TABLET PO SCH ×2 (09:25→22:05)
[2019-03-17] MEDS: AMLODIPINE BESYLATE 5 MG TABLET PO SCH ×2 (09:25→22:05)
[2019-03-17] MEDS: FUROSEMIDE 20 MG TABLET PO SCH (09:25)
[2019-03-17] MEDS: FAMOTIDINE 20 MG TABLET PO SCH (09:25)
[2019-03-17] MEDS: FLUTICASONE/VILANTEROL 200-25 MCG/DOSE IH SCH (09:26)
[2019-03-17] MEDS: SITAGLIPTIN PHOSPHATE 50 MG TABLET PO SCH (09:26)
[2019-03-17] MEDS: HYDRALAZINE HCL 25 MG TABLET PO PRN ×2 (12:36→20:43)
--- NOTE | 2019-03-17 12:36 | PDOC PROGRESS REPORT ---
Subjective Progress Note for:: 03/17/19 Subjective:: Patient is currently doing well Denied any chest pain denied any shortness of the breath Patient's blood sugar is currently stable without any insulin Discussed with the pulmonary going to arrange the BiPAP at home Very limited mobility physical therapy done yesterday but patients do not want to go to the rehab facilities Home health and physical therapy Reason For Visit: CHEST PAIN/BRONCHITIS Physical Exam Vital Signs: Temp Pulse Resp BP Pulse Ox 97.4 F 65 18 169/77 H 93 03/17/19 07:41 03/17/19 11:53 03/17/19 11:53 03/17/19 07:41 03/17/19 11:53 Pulse Oximeter Continuous Start: 03/15/19 16:11 Freq: RTQ4 Status: Active Protocol: Document 03/17/19 11:53 NSM (Rec: 03/17/19 12:03 NSM [email or web address]) Pulse Oximetry Assessment Oxygen Saturation (92-100) 93 Oxygen Delivery Method Room Air Equipment Usage Equipment Standby Continuous SpO2 Machine # N1 Intake & Output 03/16/19 03/17/19 03/18/19 06:59 06:59 06:59 Intake Total 804 560 Output Total 120 1625 Balance 684 -1065 Weight 151.3 kg 151.4 kg General appearance: PRESENT: no acute distress, well-developed, well-nourished Head exam: PRESENT: atraumatic, normocephalic Eye exam: PRESENT: conjunctiva pink, EOMI, PERRLA. ABSENT: scleral icterus Ear exam: PRESENT: normal external ear exam Mouth exam: PRESENT: moist, tongue midline Neck exam: PRESENT: full ROM. ABSENT: carotid bruit, JVD, lymphadenopathy, thyromegaly Respiratory exam: PRESENT: clear to auscultation carter Cardiovascular exam: PRESENT: RRR. ABSENT: diastolic murmur, rubs, systolic murmur Pulses: PRESENT: normal dorsalis pedis pul, +2 pedal pulses bilateral Vascular exam: PRESENT: normal capillary refill GI/Abdominal exam: PRESENT: normal bowel sounds, soft. ABSENT: distended, guarding, mass, organolmegaly, rebound, tenderness Rectal exam: PRESENT: deferred Neurological exam: PRESENT: alert, awake, oriented to person, oriented to place, oriented to time, oriented to situation, CN II-XII grossly intact. ABSENT: motor sensory deficit Psychiatric exam: PRESENT: appropriate affect, normal mood. ABSENT: homicidal ideation, suicidal ideation Skin exam: PRESENT: dry, intact, warm. ABSENT: cyanosis, rash Results Laboratory Results: 03/17/19 04:50 03/17/19 04:50 03/17/19 03/17/19 04:50 04:50 WBC 7.3 RBC 3.28 L Hgb 9.6 L Hct 29.6 L MCV 90 MCH 29.3 MCHC 32.5 RDW 15.8 H Plt Count 213 Seg Neutrophils % 66.8 Lymphocytes % 15.0 Monocytes % 12.1 Eosinophils % 5.5 Basophils % 0.6 Absolute Neutrophils 4.9 Absolute Lymphocytes 1.1 Absolute Monocytes 0.9 Absolute Eosinophils 0.4 Absolute Basophils 0.0 Sodium 142.7 Potassium 4.5 Chloride 105 Carbon Dioxide 33 H Anion Gap 5 BUN 32 H Creatinine 2.07 H Est GFR ( Amer) 28 L Est GFR (Non-Af Amer) 23 L Glucose 129 H Calcium 8.5 03/14/19 03/14/19 03/14/19 16:15 16:15 18:25 Creatine Kinase 793 H 774 H CK-MB (CK-2) 2.07 Troponin I < 0.012 NT-Pro-B Natriuret Pep 4330 H 03/14/19 03/14/19 03/14/19 18:25 23:30 23:30 Creatine Kinase 763 H CK-MB (CK-2) 1.98 2.24 Troponin I < 0.012 < 0.012 NT-Pro-B Natriuret Pep 03/15/19 03/15/19 05:36 05:36 Creatine Kinase 807 H CK-MB (CK-2) 1.95 Troponin I < 0.012 NT-Pro-B Natriuret Pep 3740 H Impressions: Lung Scan-VQ NM 03/14/19 00:00 IMPRESSION: No evidence of pulmonary embolism. Chest X-Ray 03/14/19 14:07 IMPRESSION: NO ACUTE RADIOGRAPHIC FINDING IN THE CHEST. Chest CT 03/14/19 15:04 IMPRESSION: Minimal right pleural effusion. Mild dependent atelectasis in the lower lobes. No pneumonia or other acute finding. Assessment & Plan - Diagnosis (1) Chest pain Qualifiers: Chest pain type: chest pain due to myocardial ischemia Ischemic chest pain type: unspecified angina pectoris type Qualified Code(s): I25.9 - Chronic ischemic heart disease, unspecified Is this a current diagnosis for this admission?: Yes Plan: As per discussed with the packing house supervisor cardiac standpoint patient is cleared follow outpatient (2) Asthmatic bronchitis Qualifiers: Asthma severity: moderate Is this a current diagnosis for this admission?: Yes Plan: We will continue some nebulizer treatments consult Dr. Sandoval'sabino with ongoing problem for further evaluations (3) Chronic kidney disease, stage 3 Is this a current diagnosis for this admission?: Yes Plan: Currently stable patient see outpatients Dr. Samano (4) Diabetes mellitus type 2 in obese Is this a current diagnosis for this admission?: Yes Plan: Currently need to readjust the insurance will hold the Lyme test and will be needs to be due at nighttime lower dose (5) Hypertension Qualifiers: Hypertension type: essential hypertension Qualified Code(s): I10 - Essential (primary) hypertension Is this a current diagnosis for this admission?: Yes Plan: Continue to current medications (6) Hypoventilation associated with obesity Is this a current diagnosis for this admission?: Yes Plan: We will consult the pulmonary for further evaluations (7) Physical deconditioning Is this a current diagnosis for this admission?: Yes Plan: Get the physical therapy evaluations (8) Acute hypercapnic respiratory failure Is this a current diagnosis for this admission?: Yes Plan: Will get the ABG put on the BiPAP consult the Dr. Bloom as per discussed with him and he suggest patients might go with the some kind of a BiPAP or trilogy at home - Time Time Spent with patient: 15-24 minutes Medications reviewed and adjusted accordingly: Yes Anticipated discharge: Home with Homehealth Within: Other - Plan Summary Plan Summary: Continues to current medications
[2019-03-17 18:03] LABS: ARTERIAL BLOOD H2CO3 1.89 mmol/L (1.05-1.35); ARTERIAL BLOOD O2 SATURATION 76.9 % (94-98); ARTERIAL BLOOD PCO2 62.8 mmHg (35-45); ARTERIAL BLOOD PH 7.34 (7.35-7.45); ARTERIAL BLOOD PO2 45.1 mmHg (80-100); ARTERIAL BLOOD TOTAL CO2 34.9 mmol/L (21-25)
[2019-03-17 18:04] LABS: ARTERIAL BLOOD FIO2 45%
[2019-03-17] MEDS: ATORVASTATIN CALCIUM 20 MG TABLET PO SCH (22:05)
[2019-03-17] MEDS: MONTELUKAST SODIUM 10 MG TABLET PO SCH (22:06)
[2019-03-18] MEDS: LEVOTHYROXINE SODIUM 0.15 MG TABLET PO SCH (06:13)
[2019-03-18] MEDS: HEPARIN SOD (PORCINE) 5,000 UNIT/ML 1 ML VIAL SUBCUT SCH ×3 (06:13→21:09)
[2019-03-18] MEDS: LEVOTHYROXINE SODIUM 0.025 MG TABLET PO SCH (06:13)
[2019-03-18] MEDS: IPRATROPIUM/ALBUTEROL 0.5-2.5 MG/3 ML AMPUL NEB SCH ×4 (08:04→19:58)
[2019-03-18] MEDS: INSULIN LISPRO 100 UNIT/ML 3 ML VIAL SUBCUT SCH ×4 (08:55→22:29)
--- NOTE | 2019-03-18 10:07 | PDOC PROGRESS REPORT ---
Subjective Progress Note for:: 03/18/19 Subjective:: Patient is currently doing well Denied any chest pain denied any shortness of the breath Patient's blood sugar is currently stable without any insulin Discussed with the pulmonary going to arrange the BiPAP at home Very limited mobility physical therapy done yesterday but patients do not want to go to the rehab facilities Home health and physical therapy Reason For Visit: CHEST PAIN/BRONCHITIS Physical Exam Vital Signs: Temp Pulse Resp BP Pulse Ox 97.6 F 66 20 157/83 H 96 03/18/19 03:43 03/18/19 08:04 03/18/19 08:04 03/18/19 03:45 03/18/19 08:04 Pulse Oximeter Continuous Start: 03/15/19 16:11 Freq: RTQ4 Status: Active Protocol: Document 03/18/19 08:04 LDA (Rec: 03/18/19 09:42 LDA [email or web address]) Pulse Oximetry Assessment Oxygen Saturation (92-100) 96 Oxygen Flow Rate (L/min) 3 Oxygen Delivery Method Nasal Cannula Fraction of Inspired Oxygen (FIO2) 32 Equipment Usage Equipment in Use Continuous SpO2 Machine # 1 Intake & Output 03/17/19 03/18/19 03/19/19 06:59 06:59 06:59 Intake Total 560 593 Output Total 1625 875 Balance -1065 -282 Weight 151.4 kg 153.8 kg General appearance: PRESENT: no acute distress, well-developed, well-nourished Head exam: PRESENT: atraumatic, normocephalic Eye exam: PRESENT: conjunctiva pink, EOMI, PERRLA. ABSENT: scleral icterus Ear exam: PRESENT: normal external ear exam Mouth exam: PRESENT: moist, tongue midline Neck exam: PRESENT: full ROM. ABSENT: carotid bruit, JVD, lymphadenopathy, thyromegaly Respiratory exam: PRESENT: clear to auscultation carter Cardiovascular exam: PRESENT: RRR. ABSENT: diastolic murmur, rubs, systolic murmur Pulses: PRESENT: normal dorsalis pedis pul, +2 pedal pulses bilateral Vascular exam: PRESENT: normal capillary refill GI/Abdominal exam: PRESENT: normal bowel sounds, soft. ABSENT: distended, guarding, mass, organolmegaly, rebound, tenderness Rectal exam: PRESENT: deferred Musculoskeletal exam: PRESENT: ambulatory Neurological exam: PRESENT: alert, awake, oriented to person, oriented to place, oriented to time, oriented to situation, CN II-XII grossly intact. ABSENT: motor sensory deficit Psychiatric exam: PRESENT: appropriate affect, normal mood. ABSENT: homicidal ideation, suicidal ideation Skin exam: PRESENT: dry, intact, warm. ABSENT: cyanosis, rash Results Laboratory Results: 03/17/19 04:50 03/17/19 04:50 03/17/19 17:30 Carbonic Acid 1.89 H HCO3/H2CO3 Ratio 17:1 ABG pH 7.34 L ABG pCO2 62.8 H ABG pO2 45.1 L ABG HCO3 33.0 H ABG O2 Saturation 76.9 L ABG Base Excess 6.0 FiO2 45% 03/14/19 03/14/19 03/14/19 16:15 16:15 18:25 Creatine Kinase 793 H 774 H CK-MB (CK-2) 2.07 Troponin I < 0.012 NT-Pro-B Natriuret Pep 4330 H 03/14/19 03/14/19 03/14/19 18:25 23:30 23:30 Creatine Kinase 763 H CK-MB (CK-2) 1.98 2.24 Troponin I < 0.012 < 0.012 NT-Pro-B Natriuret Pep 03/15/19 03/15/19 05:36 05:36 Creatine Kinase 807 H CK-MB (CK-2) 1.95 Troponin I < 0.012 NT-Pro-B Natriuret Pep 3740 H Impressions: Lung Scan-VQ NM 03/14/19 00:00 IMPRESSION: No evidence of pulmonary embolism. Chest X-Ray 03/14/19 14:07 IMPRESSION: NO ACUTE RADIOGRAPHIC FINDING IN THE CHEST. Chest CT 03/14/19 15:04 IMPRESSION: Minimal right pleural effusion. Mild dependent atelectasis in the lower lobes. No pneumonia or other acute finding. Assessment & Plan - Diagnosis (1) Chest pain Qualifiers: Chest pain type: chest pain due to myocardial ischemia Ischemic chest pain type: unspecified angina pectoris type Qualified Code(s): I25.9 - Chronic ischemic heart disease, unspecified Is this a current diagnosis for this admission?: Yes Plan: As per discussed with the audit spec cardiac standpoint patient is cleared follow outpatient (2) Asthmatic bronchitis Qualifiers: Asthma severity: moderate Is this a current diagnosis for this admission?: Yes Plan: We will continue some nebulizer treatments consult Dr. Bloom with ongoing problem for further evaluations (3) Chronic kidney disease, stage 3 Is this a current diagnosis for this admission?: Yes Plan: Currently stable patient see outpatients Dr. Samano (4) Diabetes mellitus type 2 in obese Is this a current diagnosis for this admission?: Yes Plan: Currently need to readjust the insurance will hold the Lyme test and will be needs to be due at nighttime lower dose (5) Hypertension Qualifiers: Hypertension type: essential hypertension Qualified Code(s): I10 - Essential (primary) hypertension Is this a current diagnosis for this admission?: Yes Plan: Continue to current medications (6) Hypoventilation associated with obesity Is this a current diagnosis for this admission?: Yes Plan: We will consult the pulmonary for further evaluations (7) Physical deconditioning Is this a current diagnosis for this admission?: Yes Plan: Get the physical therapy evaluations (8) Acute hypercapnic respiratory failure Is this a current diagnosis for this admission?: Yes Plan: Will get the ABG put on the BiPAP consult the Dr. Sandoval'sabino as per discussed with him and he suggest patients might go with the some kind of a BiPAP or trilogy at home - Time Time Spent with patient: 15-24 minutes Medications reviewed and adjusted accordingly: Yes Anticipated discharge: Other Within: Other - Plan Summary Plan Summary: Continues to current medications
[2019-03-18] MEDS: AMLODIPINE BESYLATE 5 MG TABLET PO SCH ×2 (10:56→21:08)
[2019-03-18] MEDS: LOSARTAN POTASSIUM 50 MG TABLET PO SCH (10:56)
[2019-03-18] MEDS: FAMOTIDINE 20 MG TABLET PO SCH (10:56)
[2019-03-18] MEDS: DULOXETINE HCL 30 MG CAPSULE.DR PO SCH ×2 (10:57→21:08)
[2019-03-18] MEDS: PREGABALIN 75 MG CAPSULE PO SCH ×2 (10:58→21:08)
[2019-03-18] MEDS: DOXYCYCLINE HYCLATE 100 MG TABLET PO SCH ×2 (10:58→18:28)
[2019-03-18] MEDS: SITAGLIPTIN PHOSPHATE 50 MG TABLET PO SCH (10:58)
[2019-03-18] MEDS: METOPROLOL TARTRATE 50 MG TABLET PO SCH ×2 (10:59→21:08)
[2019-03-18] MEDS: FUROSEMIDE 20 MG TABLET PO SCH (10:59)
[2019-03-18] MEDS: FLUTICASONE/VILANTEROL 200-25 MCG/DOSE IH SCH (11:02)
[2019-03-18 20:58] LABS: ARTERIAL BLOOD BASE EXCESS 0.9 mmol/L; ARTERIAL BLOOD FIO2 32%; ARTERIAL BLOOD H2CO3 1.42 mmol/L (1.05-1.35); ARTERIAL BLOOD HCO3 26.5 mmol/L (20-24); ARTERIAL BLOOD O2 SATURATION 97.2 % (94-98); ARTERIAL BLOOD PCO2 47.3 mmHg (35-45); ARTERIAL BLOOD PH 7.37 (7.35-7.45); ARTERIAL BLOOD PO2 97.2 mmHg (80-100)
[2019-03-18] MEDS: MONTELUKAST SODIUM 10 MG TABLET PO SCH (21:08)
[2019-03-18] MEDS: ATORVASTATIN CALCIUM 20 MG TABLET PO SCH (21:08)
[2019-03-19] MEDS: LEVOTHYROXINE SODIUM 0.025 MG TABLET PO SCH (05:38)
[2019-03-19] MEDS: HEPARIN SOD (PORCINE) 5,000 UNIT/ML 1 ML VIAL SUBCUT SCH ×3 (05:38→21:54)
[2019-03-19] MEDS: LEVOTHYROXINE SODIUM 0.15 MG TABLET PO SCH (05:38)
[2019-03-19] MEDS: INSULIN LISPRO 100 UNIT/ML 3 ML VIAL SUBCUT SCH ×4 (08:28→22:00)
[2019-03-19] MEDS: HYDRALAZINE HCL 25 MG TABLET PO PRN (08:39)
[2019-03-19] MEDS: IPRATROPIUM/ALBUTEROL 0.5-2.5 MG/3 ML AMPUL NEB SCH ×4 (08:47→20:00)
[2019-03-19 09:04] LABS: ABSOLUTE BASOPHILS # (AUTO) 0.1 10^3/uL (0.0-0.2); ABSOLUTE EOSINOPHILS # (AUTO) 0.5 10^3/uL (0.0-0.6); ABSOLUTE LYMPHOCYTES (AUTO) 1.4 10^3/uL (0.5-4.7); BASOPHILS % (AUTO) 1.5 % (0-2); EOSINOPHILS % (AUTO) 6.1 % (0-6); HEMATOCRIT 26.9 % (36.0-47.0); HEMOGLOBIN 8.7 g/dL (12.0-15.5); LYMPHOCYTES % (AUTO) 17.9 % (13-45); MEAN CORPUSCULAR HGB CONC 32.4 g/dL (32.0-36.0); MEAN CORPUSCULAR VOLUME 89 fl (80-97); MONOCYTES % (AUTO) 12.4 % (3-13); PLATELET COUNT 217 10^3/uL (150-450); RED BLOOD COUNT 3.01 10^6/uL (3.72-5.28); RED CELL DISTRIBUTION WIDTH 15.5 % (11.5-14.0); SEGMENTED NEUTROPHILS % (AUTO) 62.1 % (42-78); TOTAL CELLS COUNTED % (AUTO) 100 %; WHITE BLOOD COUNT 8.1 10^3/uL (4.0-10.5)
[2019-03-19 09:15] LABS: ANION GAP 7 (5-19); BLOOD UREA NITROGEN 36 mg/dL (7-20); CALCIUM 8.7 mg/dL (8.4-10.2); CARBON DIOXIDE 30 mmol/L (22-30); CHLORIDE 104 mmol/L (98-107); GLUCOSE 123 mg/dL (75-110); POTASSIUM 4.5 mmol/L (3.6-5.0)
[2019-03-19] MEDS: SITAGLIPTIN PHOSPHATE 50 MG TABLET PO SCH (10:08)
[2019-03-19] MEDS: DOXYCYCLINE HYCLATE 100 MG TABLET PO SCH (10:08)
[2019-03-19] MEDS: FAMOTIDINE 20 MG TABLET PO SCH (10:08)
[2019-03-19] MEDS: PREGABALIN 75 MG CAPSULE PO SCH ×2 (10:08→21:54)
[2019-03-19] MEDS: DULOXETINE HCL 30 MG CAPSULE.DR PO SCH ×2 (10:09→21:52)
[2019-03-19] MEDS: FLUTICASONE/VILANTEROL 200-25 MCG/DOSE IH SCH (10:09)
[2019-03-19] MEDS: AMLODIPINE BESYLATE 5 MG TABLET PO SCH ×2 (10:13→21:53)
[2019-03-19] MEDS: LOSARTAN POTASSIUM 50 MG TABLET PO SCH (10:13)
[2019-03-19] MEDS: FUROSEMIDE 20 MG TABLET PO SCH (10:14)
[2019-03-19] MEDS: METOPROLOL TARTRATE 50 MG TABLET PO SCH ×2 (10:14→21:53)
--- NOTE | 2019-03-19 11:05 | PDOC PROGRESS REPORT ---
Subjective Progress Note for:: 03/19/19 Subjective:: Patient is currently doing well Denied any chest pain denied any shortness of the breath Patient's blood sugar is currently stable without any insulin Discussed with the pulmonary going to arrange the BiPAP at home Very limited mobility physical therapy done yesterday but patients do not want to go to the rehab facilities Home health and physical therapy Reason For Visit: CHEST PAIN/BRONCHITIS Physical Exam Vital Signs: Temp Pulse Resp BP Pulse Ox 97.8 F 75 20 176/74 H 99 03/19/19 08:07 03/19/19 08:47 03/19/19 08:47 03/19/19 08:07 03/19/19 08:47 Pulse Oximeter Continuous Start: 03/15/19 16:11 Freq: RTQ4 Status: Active Protocol: Document 03/19/19 08:47 LDA (Rec: 03/19/19 10:24 LDA [email or web address]) Pulse Oximetry Assessment Oxygen Saturation (92-100) 99 Oxygen Flow Rate (L/min) 3 Oxygen Delivery Method Simple Mask Fraction of Inspired Oxygen (FIO2) 32 Equipment Usage Equipment in Use Continuous SpO2 Machine # 1 Intake & Output 03/18/19 03/19/19 03/20/19 06:59 06:59 06:59 Intake Total 593 1347 Output Total 875 1250 Balance -282 97 Weight 153.8 kg 153.9 kg General appearance: PRESENT: no acute distress, well-developed, well-nourished Head exam: PRESENT: atraumatic, normocephalic Eye exam: PRESENT: conjunctiva pink, EOMI, PERRLA. ABSENT: scleral icterus Ear exam: PRESENT: normal external ear exam Mouth exam: PRESENT: moist, tongue midline Neck exam: PRESENT: full ROM. ABSENT: carotid bruit, JVD, lymphadenopathy, thyromegaly Respiratory exam: PRESENT: clear to auscultation carter Cardiovascular exam: PRESENT: RRR. ABSENT: diastolic murmur, rubs, systolic murmur Pulses: PRESENT: normal dorsalis pedis pul, +2 pedal pulses bilateral Vascular exam: PRESENT: normal capillary refill GI/Abdominal exam: PRESENT: normal bowel sounds, soft. ABSENT: distended, guarding, mass, organolmegaly, rebound, tenderness Rectal exam: PRESENT: deferred Neurological exam: PRESENT: alert, awake, oriented to person, oriented to place, oriented to time, oriented to situation, CN II-XII grossly intact. ABSENT: motor sensory deficit Psychiatric exam: PRESENT: appropriate affect, normal mood. ABSENT: homicidal ideation, suicidal ideation Skin exam: PRESENT: dry, intact, warm. ABSENT: cyanosis, rash Results Laboratory Results: 03/19/19 08:43 03/19/19 08:43 03/18/19 03/19/19 03/19/19 20:50 08:43 08:43 WBC 8.1 RBC 3.01 L Hgb 8.7 L Hct 26.9 L MCV 89 MCH 29.0 MCHC 32.4 RDW 15.5 H Plt Count 217 Seg Neutrophils % 62.1 Lymphocytes % 17.9 Monocytes % 12.4 Eosinophils % 6.1 H Basophils % 1.5 Absolute Neutrophils 5.0 Absolute Lymphocytes 1.4 Absolute Monocytes 1.0 Absolute Eosinophils 0.5 Absolute Basophils 0.1 Carbonic Acid 1.42 H HCO3/H2CO3 Ratio 18:1 ABG pH 7.37 ABG pCO2 47.3 H ABG pO2 97.2 ABG HCO3 26.5 H ABG O2 Saturation 97.2 ABG Base Excess 0.9 FiO2 32% Sodium 140.8 Potassium 4.5 Chloride 104 Carbon Dioxide 30 Anion Gap 7 BUN 36 H Creatinine 1.87 H Est GFR ( Amer) 32 L Est GFR (Non-Af Amer) 26 L Glucose 123 H Calcium 8.7 03/14/19 03/14/19 03/14/19 16:15 16:15 18:25 Creatine Kinase 793 H 774 H CK-MB (CK-2) 2.07 Troponin I < 0.012 NT-Pro-B Natriuret Pep 4330 H 03/14/19 03/14/19 03/14/19 18:25 23:30 23:30 Creatine Kinase 763 H CK-MB (CK-2) 1.98 2.24 Troponin I < 0.012 < 0.012 NT-Pro-B Natriuret Pep 03/15/19 03/15/19 05:36 05:36 Creatine Kinase 807 H CK-MB (CK-2) 1.95 Troponin I < 0.012 NT-Pro-B Natriuret Pep 3740 H Impressions: Lung Scan-VQ NM 03/14/19 00:00 IMPRESSION: No evidence of pulmonary embolism. Chest X-Ray 03/14/19 14:07 IMPRESSION: NO ACUTE RADIOGRAPHIC FINDING IN THE CHEST. Chest CT 03/14/19 15:04 IMPRESSION: Minimal right pleural effusion. Mild dependent atelectasis in the lower lobes. No pneumonia or other acute finding. Assessment & Plan - Diagnosis (1) Chest pain Qualifiers: Chest pain type: chest pain due to myocardial ischemia Ischemic chest pain type: unspecified angina pectoris type Qualified Code(s): I25.9 - Chronic ischemic heart disease, unspecified Is this a current diagnosis for this admission?: Yes Plan: As per discussed with the floral artist cardiac standpoint patient is cleared follow outpatient (2) Asthmatic bronchitis Qualifiers: Asthma severity: moderate Is this a current diagnosis for this admission?: Yes Plan: We will continue some nebulizer treatments consult Dr. Sandoval's with ongoing problem for further evaluations (3) Chronic kidney disease, stage 3 Is this a current diagnosis for this admission?: Yes Plan: Currently stable patient see outpatients Dr. Samano (4) Diabetes mellitus type 2 in obese Is this a current diagnosis for this admission?: Yes Plan: Currently need to readjust the insurance will hold the Lyme test and will be needs to be due at nighttime lower dose (5) Hypertension Qualifiers: Hypertension type: essential hypertension Qualified Code(s): I10 - Essential (primary) hypertension Is this a current diagnosis for this admission?: Yes Plan: Continue to current medications (6) Hypoventilation associated with obesity Is this a current diagnosis for this admission?: Yes Plan: We will consult the pulmonary for further evaluations (7) Physical deconditioning Is this a current diagnosis for this admission?: Yes (8) Acute hypercapnic respiratory failure Is this a current diagnosis for this admission?: Yes Plan: Will get the ABG put on the BiPAP consult the Dr. Sandoval'sabino as per discussed with him and he suggest patients might go with the some kind of a BiPAP or trilogy at home - Time Time Spent with patient: 15-24 minutes Medications reviewed and adjusted accordingly: Yes Anticipated discharge: Other Within: Other - Plan Summary Plan Summary: Discussed with the pulmonary probably present understand the weekends continues on the BiPAP
[2019-03-19] MEDS: HYDRALAZINE HCL 25 MG TABLET PO SCH ×2 (13:58→21:53)
[2019-03-19] MEDS ORDERED: HYDRALAZINE HCL 25 MG TABLET PO SCH (14:00)
[2019-03-19] MEDS: ATORVASTATIN CALCIUM 20 MG TABLET PO SCH (21:53)
[2019-03-19] MEDS: MONTELUKAST SODIUM 10 MG TABLET PO SCH (21:53)
[2019-03-20] MEDS: HEPARIN SOD (PORCINE) 5,000 UNIT/ML 1 ML VIAL SUBCUT SCH ×3 (05:36→21:29)
[2019-03-20] MEDS: LEVOTHYROXINE SODIUM 0.025 MG TABLET PO SCH ×2 (05:37→06:53)
[2019-03-20] MEDS: LEVOTHYROXINE SODIUM 0.15 MG TABLET PO SCH ×2 (05:37→06:53)
[2019-03-20] MEDS: HYDRALAZINE HCL 25 MG TABLET PO SCH ×4 (05:40→21:30)
[2019-03-20] MEDS: IPRATROPIUM/ALBUTEROL 0.5-2.5 MG/3 ML AMPUL NEB SCH ×4 (08:20→20:44)
[2019-03-20] MEDS: INSULIN LISPRO 100 UNIT/ML 3 ML VIAL SUBCUT SCH ×4 (08:23→21:46)
[2019-03-20] MEDS: AMLODIPINE BESYLATE 5 MG TABLET PO SCH ×2 (10:44→21:39)
[2019-03-20] MEDS: SITAGLIPTIN PHOSPHATE 50 MG TABLET PO SCH (10:44)
[2019-03-20] MEDS: METOPROLOL TARTRATE 50 MG TABLET PO SCH ×2 (10:44→21:29)
[2019-03-20] MEDS: PREGABALIN 75 MG CAPSULE PO SCH ×2 (10:44→21:30)
[2019-03-20] MEDS: DULOXETINE HCL 30 MG CAPSULE.DR PO SCH ×2 (10:44→21:29)
[2019-03-20] MEDS: FUROSEMIDE 20 MG TABLET PO SCH (10:45)
[2019-03-20] MEDS: LOSARTAN POTASSIUM 50 MG TABLET PO SCH (10:45)
[2019-03-20] MEDS: FLUTICASONE/VILANTEROL 200-25 MCG/DOSE IH SCH (10:45)
[2019-03-20] MEDS: FAMOTIDINE 20 MG TABLET PO SCH (10:45)
--- NOTE | 2019-03-20 11:32 | PDOC PROGRESS REPORT ---
Subjective Progress Note for:: 03/20/19 Subjective:: Patient is currently doing well Denied any chest pain denied any shortness of the breath Patient's blood sugar is currently stable without any insulin Discussed with the pulmonary going to arrange the BiPAP at home Very limited mobility physical therapy done yesterday but patients do not want to go to the rehab facilities Home health and physical therapy Reason For Visit: CHEST PAIN/BRONCHITIS Physical Exam Vital Signs: Temp Pulse Resp BP Pulse Ox 98.3 F 68 20 145/56 H 100 03/20/19 07:36 03/20/19 08:20 03/20/19 08:20 03/20/19 07:36 03/20/19 08:20 Pulse Oximeter Continuous Start: 03/15/19 16:11 Freq: RTQ4 Status: Active Protocol: Document 03/20/19 08:20 LDA (Rec: 03/20/19 11:07 LDA [id number]) Pulse Oximetry Assessment Oxygen Saturation (92-100) 98 Oxygen Flow Rate (L/min) 2 Oxygen Delivery Method Nasal Cannula Fraction of Inspired Oxygen (FIO2) 28 Equipment Usage Equipment in Use Continuous SpO2 Machine # 1 Intake & Output 03/19/19 03/20/19 03/21/19 06:59 06:59 06:59 Intake Total 1347 1245 Output Total 1250 1275 Balance 97 -30 Weight 153.9 kg 156.8 kg General appearance: PRESENT: no acute distress, well-developed, well-nourished Head exam: PRESENT: atraumatic, normocephalic Eye exam: PRESENT: conjunctiva pink, EOMI, PERRLA. ABSENT: scleral icterus Ear exam: PRESENT: normal external ear exam Mouth exam: PRESENT: moist, tongue midline Neck exam: PRESENT: full ROM. ABSENT: carotid bruit, JVD, lymphadenopathy, thyromegaly Respiratory exam: PRESENT: clear to auscultation carter Cardiovascular exam: PRESENT: RRR. ABSENT: diastolic murmur, rubs, systolic murmur Pulses: PRESENT: normal dorsalis pedis pul, +2 pedal pulses bilateral Vascular exam: PRESENT: normal capillary refill GI/Abdominal exam: PRESENT: normal bowel sounds, soft. ABSENT: distended, guarding, mass, organolmegaly, rebound, tenderness Rectal exam: PRESENT: deferred Musculoskeletal exam: PRESENT: ambulatory Neurological exam: PRESENT: alert, awake, oriented to person, oriented to place, oriented to time, oriented to situation, CN II-XII grossly intact. ABSENT: motor sensory deficit Psychiatric exam: PRESENT: appropriate affect, normal mood. ABSENT: homicidal ideation, suicidal ideation Skin exam: PRESENT: dry, intact, warm. ABSENT: cyanosis, rash Results Laboratory Results: 03/19/19 08:43 03/19/19 08:43 03/14/19 18:25 Blood Blood Culture - Final NO GROWTH IN 5 DAYS 03/14/19 16:15 Blood Blood Culture - Final NO GROWTH IN 5 DAYS 03/14/19 03/14/19 03/14/19 16:15 16:15 18:25 Creatine Kinase 793 H 774 H CK-MB (CK-2) 2.07 Troponin I < 0.012 NT-Pro-B Natriuret Pep 4330 H 03/14/19 03/14/19 03/14/19 18:25 23:30 23:30 Creatine Kinase 763 H CK-MB (CK-2) 1.98 2.24 Troponin I < 0.012 < 0.012 NT-Pro-B Natriuret Pep 03/15/19 03/15/19 05:36 05:36 Creatine Kinase 807 H CK-MB (CK-2) 1.95 Troponin I < 0.012 NT-Pro-B Natriuret Pep 3740 H Impressions: Lung Scan-VQ NM 03/14/19 00:00 IMPRESSION: No evidence of pulmonary embolism. Chest X-Ray 03/14/19 14:07 IMPRESSION: NO ACUTE RADIOGRAPHIC FINDING IN THE CHEST. Chest CT 03/14/19 15:04 IMPRESSION: Minimal right pleural effusion. Mild dependent atelectasis in the lower lobes. No pneumonia or other acute finding. Assessment & Plan - Diagnosis (1) Chest pain Qualifiers: Chest pain type: chest pain due to myocardial ischemia Ischemic chest pain type: unspecified angina pectoris type Qualified Code(s): I25.9 - Chronic ischemic heart disease, unspecified Is this a current diagnosis for this admission?: Yes Plan: As per discussed with the director energy cardiac standpoint patient is cleared follow outpatient (2) Asthmatic bronchitis Qualifiers: Asthma severity: moderate Is this a current diagnosis for this admission?: Yes Plan: We will continue some nebulizer treatments consult Dr. Sandoval's with ongoing problem for further evaluations (3) Chronic kidney disease, stage 3 Is this a current diagnosis for this admission?: Yes Plan: Currently stable patient see outpatients Dr. Samano (4) Diabetes mellitus type 2 in obese Is this a current diagnosis for this admission?: Yes Plan: Currently need to readjust the insurance will hold the Lyme test and will be needs to be due at nighttime lower dose (5) Hypertension Qualifiers: Hypertension type: essential hypertension Qualified Code(s): I10 - Essential (primary) hypertension Is this a current diagnosis for this admission?: Yes Plan: Continue to current medications (6) Hypoventilation associated with obesity Is this a current diagnosis for this admission?: Yes Plan: We will consult the pulmonary for further evaluations (7) Physical deconditioning Is this a current diagnosis for this admission?: Yes Plan: Get the physical therapy evaluations (8) Acute hypercapnic respiratory failure Is this a current diagnosis for this admission?: Yes Plan: Will get the ABG put on the BiPAP consult the Dr. Sandoval's as per discussed with him and he suggest patients might go with the some kind of a BiPAP or trilogy at home - Time Time Spent with patient: 15-24 minutes Medications reviewed and adjusted accordingly: Yes Anticipated discharge: Other Within: Other - Plan Summary Plan Summary: cont curr med
[2019-03-20 12:17] LABS: ARTERIAL BLOOD BASE EXCESS 3.8 mmol/L; ARTERIAL BLOOD H2CO3 1.34 mmol/L (1.05-1.35); ARTERIAL BLOOD HCO3 28.6 mmol/L (20-24); ARTERIAL BLOOD O2 SATURATION 97.6 % (94-98); ARTERIAL BLOOD PCO2 44.4 mmHg (35-45); ARTERIAL BLOOD PH 7.43 (7.35-7.45)
[2019-03-20 12:18] LABS: ARTERIAL BLOOD FIO2 28%
[2019-03-20 13:04] LABS: ABSOLUTE BASOPHILS # (AUTO) 0.1 10^3/uL (0.0-0.2); ABSOLUTE EOSINOPHILS # (AUTO) 0.4 10^3/uL (0.0-0.6); ABSOLUTE LYMPHOCYTES (AUTO) 1.3 10^3/uL (0.5-4.7); ABSOLUTE MONOCYTES (AUTO) 0.9 10^3/uL (0.1-1.4); ABSOLUTE NEUT (AUTO) 5.2 10^3/uL (1.7-8.2); BASOPHILS % (AUTO) 0.8 % (0-2); EOSINOPHILS % (AUTO) 5.4 % (0-6); HEMATOCRIT 25.6 % (36.0-47.0); HEMOGLOBIN 8.5 g/dL (12.0-15.5); LYMPHOCYTES % (AUTO) 16.4 % (13-45); MEAN CORPUSCULAR HEMOGLOBIN 29.4 pg (27.0-33.4); MEAN CORPUSCULAR VOLUME 89 fl (80-97); MONOCYTES % (AUTO) 11.7 % (3-13); PLATELET COUNT 214 10^3/uL (150-450); RED BLOOD COUNT 2.88 10^6/uL (3.72-5.28); RED CELL DISTRIBUTION WIDTH 15.8 % (11.5-14.0); SEGMENTED NEUTROPHILS % (AUTO) 65.7 % (42-78); TOTAL CELLS COUNTED % (AUTO) 100 %; WHITE BLOOD COUNT 7.9 10^3/uL (4.0-10.5)
[2019-03-20 13:22] LABS: ALBUMIN 2.8 g/dL (3.5-5.0); ALKALINE PHOSPHATASE 131 U/L (38-126); ANION GAP 6 (5-19); ASPARTATE AMINO TRANSFERASE 24 U/L (14-36); BILIRUBIN,DIRECT 0.3 mg/dL (0.0-0.4); BILIRUBIN,TOTAL 0.3 mg/dL (0.2-1.3); BLOOD UREA NITROGEN 40 mg/dL (7-20); CALCIUM 8.7 mg/dL (8.4-10.2); CARBON DIOXIDE 30 mmol/L (22-30); CHLORIDE 105 mmol/L (98-107); GLUCOSE 141 mg/dL (75-110); POTASSIUM 4.7 mmol/L (3.6-5.0); TOTAL PROTEIN 5.9 g/dL (6.3-8.2)
[2019-03-20] MEDS: MONTELUKAST SODIUM 10 MG TABLET PO SCH (21:30)
[2019-03-20] MEDS: ATORVASTATIN CALCIUM 20 MG TABLET PO SCH (21:30)
[2019-03-21] MEDS: LEVOTHYROXINE SODIUM 0.15 MG TABLET PO SCH (05:32)
[2019-03-21] MEDS: LEVOTHYROXINE SODIUM 0.025 MG TABLET PO SCH (05:33)
[2019-03-21] MEDS: HEPARIN SOD (PORCINE) 5,000 UNIT/ML 1 ML VIAL SUBCUT SCH ×3 (05:33→22:11)
[2019-03-21] MEDS: HYDRALAZINE HCL 25 MG TABLET PO SCH ×3 (05:33→22:11)
[2019-03-21 07:00] LABS: ANION GAP 6 (5-19); BLOOD UREA NITROGEN 44 mg/dL (7-20); CALCIUM 8.7 mg/dL (8.4-10.2); CARBON DIOXIDE 31 mmol/L (22-30); CHLORIDE 106 mmol/L (98-107); GLUCOSE 121 mg/dL (75-110); POTASSIUM 4.4 mmol/L (3.6-5.0)
[2019-03-21] MEDS: INSULIN LISPRO 100 UNIT/ML 3 ML VIAL SUBCUT SCH ×4 (07:54→22:10)
[2019-03-21] MEDS: IPRATROPIUM/ALBUTEROL 0.5-2.5 MG/3 ML AMPUL NEB SCH ×4 (08:54→20:05)
[2019-03-21] MEDS: FAMOTIDINE 20 MG TABLET PO SCH (09:50)
[2019-03-21] MEDS: FUROSEMIDE 20 MG TABLET PO SCH (09:50)
[2019-03-21] MEDS: METOPROLOL TARTRATE 50 MG TABLET PO SCH ×2 (09:50→22:12)
[2019-03-21] MEDS: PREGABALIN 75 MG CAPSULE PO SCH ×2 (09:50→22:12)
[2019-03-21] MEDS: SITAGLIPTIN PHOSPHATE 50 MG TABLET PO SCH (09:50)
[2019-03-21] MEDS: DULOXETINE HCL 30 MG CAPSULE.DR PO SCH ×2 (09:50→22:12)
[2019-03-21] MEDS: AMLODIPINE BESYLATE 5 MG TABLET PO SCH ×2 (09:50→22:11)
[2019-03-21] MEDS: LOSARTAN POTASSIUM 50 MG TABLET PO SCH (09:50)
[2019-03-21] MEDS: FLUTICASONE/VILANTEROL 200-25 MCG/DOSE IH SCH (09:50)
[2019-03-21] MEDS: ATORVASTATIN CALCIUM 20 MG TABLET PO SCH (22:12)
[2019-03-21] MEDS: MONTELUKAST SODIUM 10 MG TABLET PO SCH (22:12)
--- NOTE | 2019-03-21 23:07 | PDOC PROGRESS REPORT ---
Subjective Progress Note for:: 03/21/19 Subjective:: Patient was admitted partly for the management of chest pain, She was seen by the bedside, Dr. Britt's notes indicated that patient to be discharged home on noninvasive positive pressure ventilation device, patient is very obese, she is not willing to go to rehabilitation she will be discharged home. She was seen by cardiology Dr. Clancy he recommended outpatient stress test. Patient is admitted for evaluation of chest pain in the setting of multiple risk factors for ischemic heart disease, so far cardiac enzymes negative for acute [place]. He is going to be a challenge to get patient for stress test outpatient because of her limitation due to the morbid obesity, it is probably reasonable to get the stress test now in the hospital Reason For Visit: CHEST PAIN/BRONCHITIS Physical Exam Vital Signs: Temp Pulse Resp BP Pulse Ox 98.1 F 71 18 104/42 L 99 03/21/19 19:15 03/21/19 20:05 03/21/19 20:05 03/21/19 19:15 03/21/19 20:05 Pulse Oximeter Continuous Start: 03/15/19 16:11 Freq: RTQ4 Status: Active Protocol: Document 03/21/19 20:05 BOR (Rec: 03/21/19 20:13 BOR [id number]) Pulse Oximetry Assessment Oxygen Saturation (92-100) 99 Oxygen Flow Rate (L/min) 2 Oxygen Delivery Method Nasal Cannula Fraction of Inspired Oxygen (FIO2) 28 Equipment Usage Equipment in Use Continuous SpO2 Machine # 1 Intake & Output 03/20/19 03/21/19 03/22/19 06:59 06:59 06:59 Intake Total 1245 1450 720 Output Total 1275 0 150 Balance -30 1450 570 Weight 156.8 kg 153.4 kg General appearance: PRESENT: no acute distress Eye exam: PRESENT: PERRLA Respiratory exam: PRESENT: clear to auscultation carter Cardiovascular exam: PRESENT: +S1, +S2 GI/Abdominal exam: PRESENT: soft Neurological exam: PRESENT: alert Results Laboratory Results: 03/20/19 12:41 03/21/19 06:22 03/21/19 06:22 Sodium 142.5 Potassium 4.4 Chloride 106 Carbon Dioxide 31 H Anion Gap 6 BUN 44 H Creatinine 2.28 H Est GFR ( Amer) 25 L Est GFR (Non-Af Amer) 21 L Glucose 121 H Calcium 8.7 03/14/19 03/14/19 03/14/19 16:15 16:15 18:25 Creatine Kinase 793 H 774 H CK-MB (CK-2) 2.07 Troponin I < 0.012 NT-Pro-B Natriuret Pep 4330 H 03/14/19 03/14/19 03/14/19 18:25 23:30 23:30 Creatine Kinase 763 H CK-MB (CK-2) 1.98 2.24 Troponin I < 0.012 < 0.012 NT-Pro-B Natriuret Pep 03/15/19 03/15/19 05:36 05:36 Creatine Kinase 807 H CK-MB (CK-2) 1.95 Troponin I < 0.012 NT-Pro-B Natriuret Pep 3740 H Impressions: Lung Scan-VQ NM 03/14/19 00:00 IMPRESSION: No evidence of pulmonary embolism. Chest X-Ray 03/14/19 14:07 IMPRESSION: NO ACUTE RADIOGRAPHIC FINDING IN THE CHEST. Chest CT 03/14/19 15:04 IMPRESSION: Minimal right pleural effusion. Mild dependent atelectasis in the lower lobes. No pneumonia or other acute finding. Assessment & Plan - Diagnosis (1) Chest pain Qualifiers: Chest pain type: chest pain due to myocardial ischemia Ischemic chest pain type: unspecified angina pectoris type Qualified Code(s): I25.9 - Chronic ischemic heart disease, unspecified Is this a current diagnosis for this admission?: Yes Plan: She was seen by Dr. Clancy cardiology (3) Type 2 diabetes mellitus Qualifiers: Diabetes mellitus poke in insulin use: unspecified poke in insulin use status Diabetes mellitus complication status: with unspecified complications Is this a current diagnosis for this admission?: Yes (4) Chronic kidney disease, stage 4 (severe) Is this a current diagnosis for this admission?: Yes (5) Type 2 diabetes mellitus with diabetic polyneuropathy Qualifiers: Diabetes mellitus poke in insulin use: with poke in use Is this a current diagnosis for this admission?: Yes
[2019-03-22] MEDS: HEPARIN SOD (PORCINE) 5,000 UNIT/ML 1 ML VIAL SUBCUT SCH ×3 (05:44→22:24)
[2019-03-22] MEDS: HYDRALAZINE HCL 25 MG TABLET PO SCH ×3 (05:45→22:23)
[2019-03-22] MEDS: LEVOTHYROXINE SODIUM 0.025 MG TABLET PO SCH (05:45)
[2019-03-22] MEDS: LEVOTHYROXINE SODIUM 0.15 MG TABLET PO SCH (05:45)
[2019-03-22] MEDS: IPRATROPIUM/ALBUTEROL 0.5-2.5 MG/3 ML AMPUL NEB SCH ×4 (08:50→20:12)
[2019-03-22] MEDS: INSULIN LISPRO 100 UNIT/ML 3 ML VIAL SUBCUT SCH ×4 (09:01→22:24)
[2019-03-22] MEDS: FLUTICASONE/VILANTEROL 200-25 MCG/DOSE IH SCH (09:38)
[2019-03-22] MEDS: SITAGLIPTIN PHOSPHATE 50 MG TABLET PO SCH (09:39)
[2019-03-22] MEDS: LOSARTAN POTASSIUM 50 MG TABLET PO SCH (09:39)
[2019-03-22] MEDS: AMLODIPINE BESYLATE 5 MG TABLET PO SCH ×2 (09:39→22:23)
[2019-03-22] MEDS: METOPROLOL TARTRATE 50 MG TABLET PO SCH ×2 (09:39→22:24)
[2019-03-22] MEDS: DULOXETINE HCL 30 MG CAPSULE.DR PO SCH ×2 (09:39→22:24)
[2019-03-22] MEDS: PREGABALIN 75 MG CAPSULE PO SCH ×2 (09:39→22:23)
[2019-03-22] MEDS: FUROSEMIDE 20 MG TABLET PO SCH (09:39)
[2019-03-22] MEDS: FAMOTIDINE 20 MG TABLET PO SCH (09:39)
--- NOTE | 2019-03-22 22:17 | PDOC PROGRESS REPORT ---
Subjective Progress Note for:: 03/22/19 Subjective:: Patient was admitted partly for the management of chest pain, She was seen by the bedside, Dr. Britt's notes indicated that patient to be discharged home on noninvasive positive pressure ventilation device, patient is very obese, she is not willing to go to rehabilitation she will be discharged home. She was seen by cardiology Dr. Clancy he recommended outpatient stress test. Patient is admitted for evaluation of chest pain in the setting of multiple risk factors for ischemic heart disease, so far cardiac enzymes negative for acute [place]. He is going to be a challenge to get patient for stress test outpatient because of her limitation due to the morbid obesity, it is probably reasonable to get the stress test now in the hospital Reason For Visit: CHEST PAIN/BRONCHITIS Physical Exam Vital Signs: Temp Pulse Resp BP Pulse Ox 97.9 F 72 20 149/74 H 99 03/22/19 19:40 03/22/19 20:12 03/22/19 20:12 03/22/19 19:40 03/22/19 20:12 Pulse Oximeter Continuous Start: 03/15/19 16:11 Freq: RTQ4 Status: Active Protocol: Document 03/22/19 20:12 [facility] (Rec: 03/22/19 21:58 [facility] [id number]) Pulse Oximetry Assessment Oxygen Saturation (92-100) 99 Oxygen Flow Rate (L/min) 2 Oxygen Delivery Method Nasal Cannula Fraction of Inspired Oxygen (FIO2) 28 Equipment Usage Equipment in Use Continuous SpO2 Machine # 1 Intake & Output 03/21/19 03/22/19 03/23/19 06:59 06:59 06:59 Intake Total 6403 907 2026 Output Total 0 550 300 Balance 1450 170 795 Weight 153.4 kg 152.7 kg General appearance: PRESENT: no acute distress Eye exam: PRESENT: PERRLA Respiratory exam: PRESENT: clear to auscultation carter Cardiovascular exam: PRESENT: +S1, +S2 GI/Abdominal exam: PRESENT: soft Neurological exam: PRESENT: alert Results Laboratory Results: 03/20/19 12:41 03/21/19 06:22 03/14/19 03/14/19 03/14/19 16:15 16:15 18:25 Creatine Kinase 793 H 774 H CK-MB (CK-2) 2.07 Troponin I < 0.012 NT-Pro-B Natriuret Pep 4330 H 03/14/19 03/14/19 03/14/19 18:25 23:30 23:30 Creatine Kinase 763 H CK-MB (CK-2) 1.98 2.24 Troponin I < 0.012 < 0.012 NT-Pro-B Natriuret Pep 03/15/19 03/15/19 05:36 05:36 Creatine Kinase 807 H CK-MB (CK-2) 1.95 Troponin I < 0.012 NT-Pro-B Natriuret Pep 3740 H Impressions: Lung Scan-VQ NM 03/14/19 00:00 IMPRESSION: No evidence of pulmonary embolism. Chest X-Ray 03/14/19 14:07 IMPRESSION: NO ACUTE RADIOGRAPHIC FINDING IN THE CHEST. Chest CT 03/14/19 15:04 IMPRESSION: Minimal right pleural effusion. Mild dependent atelectasis in the lower lobes. No pneumonia or other acute finding. Assessment & Plan - Diagnosis (1) Chest pain Qualifiers: Chest pain type: chest pain due to myocardial ischemia Ischemic chest pain type: unspecified angina pectoris type Qualified Code(s): I25.9 - Chronic ischemic heart disease, unspecified Is this a current diagnosis for this admission?: Yes (2) Morbid obesity due to excess calories Is this a current diagnosis for this admission?: Yes (3) Type 2 diabetes mellitus Qualifiers: Diabetes mellitus intermediate project manager insulin use: unspecified custodial insulin use status Diabetes mellitus complication status: with unspecified complications Is this a current diagnosis for this admission?: Yes (4) Chronic kidney disease, stage 4 (severe) Is this a current diagnosis for this admission?: Yes (5) Type 2 diabetes mellitus with diabetic polyneuropathy Qualifiers: Diabetes mellitus custodial insulin use: with custodial use Is this a current diagnosis for this admission?: Yes
[2019-03-22] MEDS: ACETAMINOPHEN 325 MG TABLET PO PRN (22:23)
[2019-03-22] MEDS: ATORVASTATIN CALCIUM 20 MG TABLET PO SCH (22:23)
[2019-03-22] MEDS: MONTELUKAST SODIUM 10 MG TABLET PO SCH (22:24)
[2019-03-23] MEDS: HEPARIN SOD (PORCINE) 5,000 UNIT/ML 1 ML VIAL SUBCUT SCH ×3 (05:59→21:25)
[2019-03-23] MEDS: LEVOTHYROXINE SODIUM 0.025 MG TABLET PO SCH (05:59)
[2019-03-23] MEDS: LEVOTHYROXINE SODIUM 0.15 MG TABLET PO SCH (05:59)
[2019-03-23] MEDS: HYDRALAZINE HCL 25 MG TABLET PO SCH ×3 (05:59→21:24)
[2019-03-23] MEDS: IPRATROPIUM/ALBUTEROL 0.5-2.5 MG/3 ML AMPUL NEB SCH ×4 (08:09→20:16)
[2019-03-23] MEDS: INSULIN LISPRO 100 UNIT/ML 3 ML VIAL SUBCUT SCH ×4 (08:17→21:33)
[2019-03-23] MEDS: AMLODIPINE BESYLATE 5 MG TABLET PO SCH ×2 (09:07→21:24)
[2019-03-23] MEDS: FAMOTIDINE 20 MG TABLET PO SCH (09:07)
[2019-03-23] MEDS: DULOXETINE HCL 30 MG CAPSULE.DR PO SCH ×2 (09:07→21:24)
[2019-03-23] MEDS: PREGABALIN 75 MG CAPSULE PO SCH ×2 (09:07→21:24)
[2019-03-23] MEDS: LOSARTAN POTASSIUM 50 MG TABLET PO SCH (09:07)
[2019-03-23] MEDS: METOPROLOL TARTRATE 50 MG TABLET PO SCH ×2 (09:07→21:24)
[2019-03-23] MEDS: FUROSEMIDE 20 MG TABLET PO SCH (09:07)
[2019-03-23] MEDS: SITAGLIPTIN PHOSPHATE 50 MG TABLET PO SCH (09:07)
[2019-03-23] MEDS: FLUTICASONE/VILANTEROL 200-25 MCG/DOSE IH SCH (09:08)
--- NOTE | 2019-03-23 13:46 | PDOC CONSULTATION ---
Consultation Consult Date: 03/15/19 Attending physician:: JUDAH RODRIGUEZ Provider Consulted: LUPIS BACON Consult reason:: Hypoxic respiratory failure, obesity History of Present Illness Admission Date/PCP: 03/14/19 17:42 BRAD GIVENS MD History of Present Illness: ONDINA ENRIQUEZ is a 73 year old female presented to the emergency room with chest pain as well as a cough worsening over the last 3 to 4 days productive of clear to yellowtsputum no hemoptysis PPD negative dates unknown. She had normal enzymes and EKG at the time of admission and the pulmonary emboli ruled out. She denies history of chronic lung disease as a child or adolescent. She admits to exposure to passive smoke as a child as well as an adult she herself smoked in the past but was not very specific about her smoking habits. She also has diagnosis of obesity hypoventilation as well as asthma, COPD, hyperlipidemia, hypertension and type 2 diabetes. She could not give any specifics to her occupational history. Past Medical History Cardiac Medical History: Reports: Congestive Heart Failure, Hyperlipidema, Hypertension Pulmonary Medical History: Reports: Asthma, Chronic Obstructive Pulmonary Disease (COPD), Pneumonia Endocrine Medical History: Reports: Diabetes Mellitus Type 2, Hypothyroidism Renal/ Medical History: Reports: Chronic Kidney Disease, End Stage Renal Disease GI Medical History: Reports: Gastroesophageal Reflux Disease Musculoskeltal Medical History: Reports: Arthritis Psychiatric Medical History: Reports: Depression Hematology: Reports: Anemia Infectious Medical History: Denies: None, Clostridium Difficile, Hepatitis B, Hepatitis C, HIV, Methicillin-Resistant Staph Aureus, Vancomycin-Resistant Enterococci, Other Past Surgical History Past Surgical History: Reports: Cholecystectomy, Hysterectomy, Orthopedic Surgery - bilateral knee replacement Denies: Pacemaker Social History Information Source: [facility] Records Smoking Status: Former Smoker Frequency of Alcohol Use: None Hx Recreational Drug Use: No Drugs: None Hx Prescription Drug Abuse: No Do you have pets?: No Have you had any respiratory illnesses as a child?: No Have you been exposed to any sick contacts recently?: No Have you travelled outside of [place] in the past 12 months?: No Family History Parental Family History Reviewed: No Children Family History Reviewed: No Sibling(s) Family History Reviewed.: No Medication/Allergy Home Medications: Atorvastatin Calcium [Lipitor 20 mg Tablet] 20 mg PO QHS 08/04/18 Duloxetine HCl [Cymbalta] 60 mg PO Q12 08/04/18 Levothyroxine Sodium 150 mcg PO Q6AM 08/04/18 Linagliptin [Tradjenta] 5 mg PO QAM 08/04/18 Metoprolol Succinate [Toprol Xl] 200 mg PO QAM 08/04/18 Mirabegron [Myrbetriq] 50 mg PO QAM 08/04/18 Montelukast Sodium [Singulair 10 mg Tablet] 10 mg PO QHS 08/04/18 Omeprazole Magnesium [Prilosec Otc] 20 mg PO Q6AM 08/04/18 Pregabalin [Lyrica] 150 mg PO Q12 08/04/18 Budesonide/Formoterol Fumarate [Symbicort HFA 160-4.5 mcg Inhaler 6 gm] 2 puff IH Q12 #2 inhaler 08/11/18 Furosemide [Lasix 20 mg Tablet] 20 mg PO DAILY 01/19/19 Telmisartan 80 mg PO DAILY 01/19/19 Amlodipine Besylate [Norvasc 5 mg Tablet] 5 mg PO BID 03/14/19 Insulin Glargine,Hum.rec.anlog [Basaglar Kwikpen U-100] 52 unit SQ QAM 03/14/19 Allergies/Adverse Reactions: aspirin [Aspirin] Allergy (Verified 01/19/19 11:29) Edema, GI UPSET morphine [Morphine] Allergy (Verified 01/19/19 11:29) ANAPHYLAXSIS, Facial swelling Review of Systems ROS unobtainable: Due to mental status Physical Exam Vital Signs: Temp Pulse Resp BP Pulse Ox 97.4 F 63 17 149/59 H 100 03/15/19 07:43 03/15/19 07:56 03/15/19 07:56 03/15/19 07:43 03/15/19 07:56 Intake & Output 03/14/19 03/15/19 03/16/19 06:59 06:59 06:59 Intake Total 170 Output Total 700 Balance -530 Weight 148.2 kg General appearance: PRESENT: cooperative, disheveled, mild distress, morbidly obese Head exam: PRESENT: atraumatic, normocephalic Eye exam: PRESENT: conjunctiva pale, EOMI. ABSENT: nystagmus, periorbital swelling, scleral icterus Mouth exam: PRESENT: dry mucosa, neck supple, tongue midline, other - [place] 4 Throat exam: ABSENT: tonsillar exudate Neck exam: ABSENT: carotid bruit, full ROM, JVD, lymphadenopathy, meningismus, tenderness, thyromegaly, tracheal deviation, tracheostomy, other Respiratory exam: PRESENT: decreased breath sounds, prolonged expiratory phas, rhonchi, symmetrical, unlabored. ABSENT: rales, retraction, stridor, tachypnea Cardiovascular exam: PRESENT: RRR, +S1, +S2. ABSENT: tachycardia Pulses: PRESENT: normal radial pulses GI/Abdominal exam: PRESENT: diminished bowel sounds, soft. ABSENT: mass, tenderness Extremities exam: PRESENT: +2 edema. ABSENT: calf tenderness, clubbing, joint swelling Musculoskeletal exam: ABSENT: deformity, dislocation Neurological exam: PRESENT: altered Psychiatric exam: PRESENT: flat affect Skin exam: PRESENT: dry, warm Results Laboratory Results: 03/15/19 05:36 03/15/19 05:36 03/14/19 03/14/19 03/14/19 16:15 16:15 18:25 WBC 8.3 RBC 3.05 L Hgb 8.9 L Hct 27.6 L MCV 91 MCH 29.1 MCHC 32.1 RDW 15.8 H Plt Count 202 Seg Neutrophils % 69.2 Lymphocytes % 12.1 L Monocytes % 12.6 Eosinophils % 5.3 Basophils % 0.8 Absolute Neutrophils 5.7 Absolute Lymphocytes 1.0 Absolute Monocytes 1.0 Absolute Eosinophils 0.4 Absolute Basophils 0.1 VBG pH VBG pCO2 VBG HCO3 VBG Base Excess Sodium 141.8 Potassium 4.3 Chloride 107 Carbon Dioxide 27 Anion Gap 8 BUN 36 H Creatinine 2.33 H Est GFR ( Amer) 25 L Est GFR (Non-Af Amer) 20 L Glucose 194 H Lactic Acid 0.8 Calcium 8.1 L Magnesium Total Bilirubin 0.3 AST 34 Alkaline Phosphatase 117 Total Protein 6.1 L Albumin 2.9 L Lipase 122.9 TSH Free T4 Free T3 pg/mL 03/14/19 03/14/19 03/15/19 18:25 23:30 05:36 WBC RBC Hgb Hct MCV MCH MCHC RDW Plt Count Seg Neutrophils % Lymphocytes % Monocytes % Eosinophils % Basophils % Absolute Neutrophils Absolute Lymphocytes Absolute Monocytes Absolute Eosinophils Absolute Basophils VBG pH Cancelled 7.26 L VBG pCO2 Cancelled 72.3 H* VBG HCO3 Cancelled 31.6 VBG Base Excess Cancelled 2.9 Sodium 143.7 Potassium 4.0 Chloride 104 Carbon Dioxide 32 H Anion Gap 8 BUN 37 H Creatinine 2.39 H Est GFR ( Amer) 24 L Est GFR (Non-Af Amer) 20 L Glucose 201 H Lactic Acid Calcium 8.7 Magnesium 1.6 Total Bilirubin AST Alkaline Phosphatase Total Protein Albumin Lipase TSH Free T4 Free T3 pg/mL 03/15/19 03/15/19 05:36 05:36 WBC 7.4 RBC 3.21 L Hgb 9.5 L Hct 29.2 L MCV 91 MCH 29.6 MCHC 32.5 RDW 15.8 H Plt Count 218 Seg Neutrophils % 67.6 Lymphocytes % 15.0 Monocytes % 10.9 Eosinophils % 6.0 Basophils % 0.5 Absolute Neutrophils 5.0 Absolute Lymphocytes 1.1 Absolute Monocytes 0.8 Absolute Eosinophils 0.4 Absolute Basophils 0.0 VBG pH VBG pCO2 VBG HCO3 VBG Base Excess Sodium Potassium Chloride Carbon Dioxide Anion Gap BUN Creatinine Est GFR ( Amer) Est GFR (Non-Af Amer) Glucose Lactic Acid Calcium Magnesium Total Bilirubin AST Alkaline Phosphatase Total Protein Albumin Lipase TSH Cancelled Free T4 Cancelled Free T3 pg/mL Cancelled 03/14/19 03/14/19 03/14/19 16:15 16:15 18:25 Creatine Kinase 793 H 774 H CK-MB (CK-2) 2.07 Troponin I < 0.012 NT-Pro-B Natriuret Pep 4330 H 03/14/19 03/14/19 03/14/19 18:25 23:30 23:30 Creatine Kinase 763 H CK-MB (CK-2) 1.98 2.24 Troponin I < 0.012 < 0.012 NT-Pro-B Natriuret Pep 03/15/19 03/15/19 05:36 05:36 Creatine Kinase 807 H CK-MB (CK-2) 1.95 Troponin I < 0.012 NT-Pro-B Natriuret Pep 3740 H Impressions: Lung Scan-VQ NM 03/14/19 00:00 IMPRESSION: No evidence of pulmonary embolism. Chest X-Ray 03/14/19 14:07 IMPRESSION: NO ACUTE RADIOGRAPHIC FINDING IN THE CHEST. Chest CT 03/14/19 15:04 IMPRESSION: Minimal right pleural effusion. Mild dependent atelectasis in the lower lobes. No pneumonia or other acute finding. Assessment & Plan - Diagnosis (1) Hypoventilation associated with obesity Is this a current diagnosis for this admission?: Yes Plan: Patient desperately needs NIPPV (2) Mental status alteration Qualifiers: Altered mental status type: stupor Qualified Code(s): R40.1 - Stupor Is this a current diagnosis for this admission?: Yes Plan: May improved with adequate oxygenation and ventilation (3) Moderate persistent asthma with (acute) exacerbation Is this a current diagnosis for this admission?: Yes Plan: Long acting beta agonist; inhaled corticosteroids; Singulair (5) Respiratory failure with hypoxia and hypercapnia Qualifiers: Chronicity: acute Qualified Code(s): J96.01 - Acute respiratory failure with hypoxia; J96.02 - Acute respiratory failure with hypercapnia; J96.02 - Acute respiratory failure with hypercapnia; J96.02 - Acute respiratory failure with hypercapnia Is this a current diagnosis for this admission?: Yes Plan: Labs- All tests 24 hr 03/15/19 03/16/19 03/17/19 10:55 05:30 17:30 ABG pCO2 54.0 H 57.4 H 62.8 H ABG O2 Saturation 91.7 L FiO2 3L
--- NOTE | 2019-03-23 13:49 | PDOC PROGRESS REPORT ---
Subjective Progress Note for:: 03/17/19 Subjective:: Awake but lethargic Reason For Visit: CHEST PAIN/BRONCHITIS Physical Exam Vital Signs: Temp Pulse Resp BP Pulse Ox 97.8 F 65 20 163/69 H 99 03/19/19 08:07 03/19/19 10:13 03/19/19 08:47 03/19/19 10:13 03/19/19 08:47 Pulse Oximeter Continuous Start: 03/15/19 16:11 Freq: RTQ4 Status: Active Protocol: Document 03/19/19 08:47 LDA (Rec: 03/19/19 10:24 LDA [id number]) Pulse Oximetry Assessment Oxygen Saturation (92-100) 99 Oxygen Flow Rate (L/min) 3 Oxygen Delivery Method Simple Mask Fraction of Inspired Oxygen (FIO2) 32 Equipment Usage Equipment in Use Continuous SpO2 Machine # 1 Intake & Output 03/18/19 03/19/19 03/20/19 06:59 06:59 06:59 Intake Total 593 1347 Output Total 875 1250 Balance -282 97 Weight 153.8 kg 153.9 kg General appearance: PRESENT: no acute distress, disheveled, morbidly obese Head exam: PRESENT: atraumatic, normocephalic Eye exam: PRESENT: conjunctiva pale, EOMI. ABSENT: nystagmus, periorbital swelling Mouth exam: PRESENT: dry mucosa, neck supple, tongue midline, other - Mallimpatti 4 Neck exam: ABSENT: carotid bruit, full ROM, JVD, lymphadenopathy, meningismus, tenderness, thyromegaly, tracheal deviation, tracheostomy, other Respiratory exam: PRESENT: decreased breath sounds, rhonchi, symmetrical. ABSENT: rales, retraction, stridor, tachypnea Cardiovascular exam: PRESENT: RRR, +S1, +S2 Pulses: PRESENT: normal radial pulses GI/Abdominal exam: PRESENT: diminished bowel sounds, soft. ABSENT: mass, tenderness Extremities exam: PRESENT: +1 edema. ABSENT: calf tenderness, clubbing, joint swelling, pedal edema, tenderness Musculoskeletal exam: ABSENT: ambulatory, deformity, dislocation Neurological exam: PRESENT: altered, awake Psychiatric exam: PRESENT: flat affect Skin exam: PRESENT: dry, warm Results Laboratory Results: 03/19/19 08:43 03/19/19 08:43 03/18/19 03/19/19 03/19/19 20:50 08:43 08:43 WBC 8.1 RBC 3.01 L Hgb 8.7 L Hct 26.9 L MCV 89 MCH 29.0 MCHC 32.4 RDW 15.5 H Plt Count 217 Seg Neutrophils % 62.1 Lymphocytes % 17.9 Monocytes % 12.4 Eosinophils % 6.1 H Basophils % 1.5 Absolute Neutrophils 5.0 Absolute Lymphocytes 1.4 Absolute Monocytes 1.0 Absolute Eosinophils 0.5 Absolute Basophils 0.1 Carbonic Acid 1.42 H HCO3/H2CO3 Ratio 18:1 ABG pH 7.37 ABG pCO2 47.3 H ABG pO2 97.2 ABG HCO3 26.5 H ABG O2 Saturation 97.2 ABG Base Excess 0.9 FiO2 32% Sodium 140.8 Potassium 4.5 Chloride 104 Carbon Dioxide 30 Anion Gap 7 BUN 36 H Creatinine 1.87 H Est GFR ( Amer) 32 L Est GFR (Non-Af Amer) 26 L Glucose 123 H Calcium 8.7 03/14/19 03/14/19 03/14/19 16:15 16:15 18:25 Creatine Kinase 793 H 774 H CK-MB (CK-2) 2.07 Troponin I < 0.012 NT-Pro-B Natriuret Pep 4330 H 03/14/19 03/14/19 03/14/19 18:25 23:30 23:30 Creatine Kinase 763 H CK-MB (CK-2) 1.98 2.24 Troponin I < 0.012 < 0.012 NT-Pro-B Natriuret Pep 03/15/19 03/15/19 05:36 05:36 Creatine Kinase 807 H CK-MB (CK-2) 1.95 Troponin I < 0.012 NT-Pro-B Natriuret Pep 3740 H Impressions: Lung Scan-VQ NM 03/14/19 00:00 IMPRESSION: No evidence of pulmonary embolism. Chest X-Ray 03/14/19 14:07 IMPRESSION: NO ACUTE RADIOGRAPHIC FINDING IN THE CHEST. Chest CT 03/14/19 15:04 IMPRESSION: Minimal right pleural effusion. Mild dependent atelectasis in the lower lobes. No pneumonia or other acute finding. Assessment & Plan - Diagnosis (1) Hypoventilation associated with obesity Is this a current diagnosis for this admission?: Yes Plan: No changes (2) Mental status alteration Qualifiers: Altered mental status type: stupor Qualified Code(s): R40.1 - Stupor Is this a current diagnosis for this admission?: Yes Plan: May improved with adequate oxygenation and ventilation (3) Moderate persistent asthma with (acute) exacerbation Is this a current diagnosis for this admission?: Yes Plan: Long acting beta agonist; inhaled corticosteroids; Singulair (4) Morbid obesity Is this a current diagnosis for this admission?: Yes Plan: Nutritional consult (5) Respiratory failure with hypoxia and hypercapnia Qualifiers: Chronicity: acute Qualified Code(s): J96.01 - Acute respiratory failure with hypoxia; J96.02 - Acute respiratory failure with hypercapnia; J96.02 - Acute respiratory failure with hypercapnia; J96.02 - Acute respiratory failure with hypercapnia Is this a current diagnosis for this admission?: Yes Plan: The above patient has failed BiPAP with a patent airway. This patient would benefit from noninvasive mechanical ventilation via the trilogy AVAPS/AE and faster responding AVAPS rates. The trilogy is able to provide a target tidal volume and also adjusting the EPAP pressures to maintain a patent airway as well as an oral backup rate this machine will help improve PaCO2 levels. The severity of the patient's condition will lead to future hospitalizations and readmissions as well as life-threatening situations without the use of this device day and night. Trilogy home vent needed for hypercapnic respiratory failure. [facility] or [facility] to follow for trilogy set up.
--- NOTE | 2019-03-23 13:53 | PDOC PROGRESS REPORT ---
Subjective Progress Note for:: 03/19/19 Subjective:: Minimal Improvement Reason For Visit: CHEST PAIN/BRONCHITIS Physical Exam Vital Signs: Temp Pulse Resp BP Pulse Ox 97.8 F 65 20 163/69 H 99 03/19/19 08:07 03/19/19 10:13 03/19/19 08:47 03/19/19 10:13 03/19/19 08:47 Pulse Oximeter Continuous Start: 03/15/19 16:11 Freq: RTQ4 Status: Active Protocol: Document 03/19/19 08:47 LDA (Rec: 03/19/19 10:24 LDA [id number]) Pulse Oximetry Assessment Oxygen Saturation (92-100) 99 Oxygen Flow Rate (L/min) 3 Oxygen Delivery Method Simple Mask Fraction of Inspired Oxygen (FIO2) 32 Equipment Usage Equipment in Use Continuous SpO2 Machine # 1 Intake & Output 03/18/19 03/19/19 03/20/19 06:59 06:59 06:59 Intake Total 593 1347 Output Total 875 1250 Balance -282 97 Weight 153.8 kg 153.9 kg General appearance: PRESENT: no acute distress, cooperative, disheveled, morbidly obese Head exam: PRESENT: atraumatic, normocephalic Eye exam: PRESENT: conjunctiva pale, EOMI. ABSENT: nystagmus, periorbital swelling, scleral icterus Mouth exam: PRESENT: dry mucosa, neck supple, tongue midline, other - [place]atti 4 Neck exam: ABSENT: carotid bruit, full ROM, JVD, lymphadenopathy, meningismus, tenderness, thyromegaly, tracheal deviation, tracheostomy, other Respiratory exam: PRESENT: decreased breath sounds, prolonged expiratory phas, rhonchi, symmetrical, unlabored. ABSENT: stridor, tachypnea Cardiovascular exam: PRESENT: RRR, +S1, +S2 Pulses: PRESENT: normal radial pulses GI/Abdominal exam: PRESENT: soft. ABSENT: mass, tenderness Extremities exam: PRESENT: +2 edema. ABSENT: calf tenderness, clubbing, joint swelling, pedal edema, tenderness Musculoskeletal exam: ABSENT: ambulatory, deformity, dislocation Neurological exam: PRESENT: altered, awake Psychiatric exam: PRESENT: flat affect Skin exam: PRESENT: dry, warm Results Laboratory Results: 03/19/19 08:43 03/19/19 08:43 03/18/19 03/19/19 03/19/19 20:50 08:43 08:43 WBC 8.1 RBC 3.01 L Hgb 8.7 L Hct 26.9 L MCV 89 MCH 29.0 MCHC 32.4 RDW 15.5 H Plt Count 217 Seg Neutrophils % 62.1 Lymphocytes % 17.9 Monocytes % 12.4 Eosinophils % 6.1 H Basophils % 1.5 Absolute Neutrophils 5.0 Absolute Lymphocytes 1.4 Absolute Monocytes 1.0 Absolute Eosinophils 0.5 Absolute Basophils 0.1 Carbonic Acid 1.42 H HCO3/H2CO3 Ratio 18:1 ABG pH 7.37 ABG pCO2 47.3 H ABG pO2 97.2 ABG HCO3 26.5 H ABG O2 Saturation 97.2 ABG Base Excess 0.9 FiO2 32% Sodium 140.8 Potassium 4.5 Chloride 104 Carbon Dioxide 30 Anion Gap 7 BUN 36 H Creatinine 1.87 H Est GFR ( Amer) 32 L Est GFR (Non-Af Amer) 26 L Glucose 123 H Calcium 8.7 03/14/19 03/14/19 03/14/19 16:15 16:15 18:25 Creatine Kinase 793 H 774 H CK-MB (CK-2) 2.07 Troponin I < 0.012 NT-Pro-B Natriuret Pep 4330 H 03/14/19 03/14/19 03/14/19 18:25 23:30 23:30 Creatine Kinase 763 H CK-MB (CK-2) 1.98 2.24 Troponin I < 0.012 < 0.012 NT-Pro-B Natriuret Pep 03/15/19 03/15/19 05:36 05:36 Creatine Kinase 807 H CK-MB (CK-2) 1.95 Troponin I < 0.012 NT-Pro-B Natriuret Pep 3740 H Impressions: Lung Scan-VQ NM 03/14/19 00:00 IMPRESSION: No evidence of pulmonary embolism. Chest X-Ray 03/14/19 14:07 IMPRESSION: NO ACUTE RADIOGRAPHIC FINDING IN THE CHEST. Chest CT 03/14/19 15:04 IMPRESSION: Minimal right pleural effusion. Mild dependent atelectasis in the lower lobes. No pneumonia or other acute finding. Assessment & Plan - Diagnosis (1) Daytime somnolence Is this a current diagnosis for this admission?: Yes Plan: non Invasive positive pressure ventilation (2) Hypoventilation associated with obesity Is this a current diagnosis for this admission?: Yes Plan: NIPPV The above patient has failed BiPAP with a patent airway. This patient would benefit from noninvasive mechanical ventilation via the trilogy AVAPS/AE and faster responding AVAPS rates. The trilogy is able to provide a target tidal volume and also adjusting the EPAP pressures to maintain a patent airway as well as an oral backup rate this machine will help improve PaCO2 levels. The severity of the patient's condition will lead to future hospitalizations and readmissions as well as life-threatening situations without the use of this device day and night. Trilogy home vent needed for hypercapnic respiratory failure. [facility] or [facility] to follow for trilogy set up. (3) Mental status alteration Qualifiers: Altered mental status type: stupor Qualified Code(s): R40.1 - Stupor Is this a current diagnosis for this admission?: Yes Plan: May improved with adequate oxygenation and ventilation (4) Morbid obesity Is this a current diagnosis for this admission?: Yes Plan: Nutritional consult (5) Respiratory failure with hypoxia and hypercapnia Qualifiers: Chronicity: acute Qualified Code(s): J96.01 - Acute respiratory failure with hypoxia; J96.02 - Acute respiratory failure with hypercapnia; J96.02 - Acute respiratory failure with hypercapnia; J96.02 - Acute respiratory failure with hypercapnia Is this a current diagnosis for this admission?: Yes Plan: The above patient has failed BiPAP with a patent airway. This patient would benefit from noninvasive mechanical ventilation via the trilogy AVAPS/AE and faster responding AVAPS rates. The trilogy is able to provide a target tidal volume and also adjusting the EPAP pressures to maintain a patent airway as well as an oral backup rate this machine will help improve PaCO2 levels. The severity of the patient's condition will lead to future hospitalizations and readmissions as well as life-threatening situations without the use of this device day and night. Trilogy home vent needed for hypercapnic respiratory failure. [facility] or [facility] to follow for trilogy set up.
--- NOTE | 2019-03-23 20:22 | PDOC DISCHARGE SUMMARY ---
General - Admit/Disc Date/PCP Admission Date/Primary Care Provider: 03/14/19 17:42 BRAD GIVENS MD Discharge Date: 03/24/19 - Discharge Diagnosis (1) Chest pain Is this a current diagnosis for this admission?: Yes (2) Morbid obesity due to excess calories Is this a current diagnosis for this admission?: Yes (3) Type 2 diabetes mellitus Is this a current diagnosis for this admission?: Yes (4) Chronic kidney disease, stage 4 (severe) Is this a current diagnosis for this admission?: Yes (5) Type 2 diabetes mellitus with diabetic polyneuropathy Is this a current diagnosis for this admission?: Yes - Additional Information Discharge Diet: Diabetic Discharge Activity: Activity As Tolerated Home Medications: Atorvastatin Calcium [Lipitor 20 mg Tablet] 20 mg PO QHS 08/04/18 Duloxetine HCl [Cymbalta] 60 mg PO Q12 08/04/18 Levothyroxine Sodium 150 mcg PO Q6AM 08/04/18 Linagliptin [Tradjenta] 5 mg PO QAM 08/04/18 Metoprolol Succinate [Toprol Xl] 200 mg PO QAM 08/04/18 Mirabegron [Myrbetriq] 50 mg PO QAM 08/04/18 Montelukast Sodium [Singulair 10 mg Tablet] 10 mg PO QHS 08/04/18 Omeprazole Magnesium [Prilosec Otc] 20 mg PO Q6AM 08/04/18 Pregabalin [Lyrica] 150 mg PO Q12 08/04/18 Budesonide/Formoterol Fumarate [Symbicort HFA 160-4.5 mcg Inhaler 6 gm] 2 puff IH Q12 #2 inhaler 08/11/18 Furosemide [Lasix 20 mg Tablet] 20 mg PO DAILY 01/19/19 Telmisartan 80 mg PO DAILY 01/19/19 Amlodipine Besylate [Norvasc 5 mg Tablet] 5 mg PO BID 03/14/19 Insulin Glargine,Hum.rec.anlog [Basaglar Kwikpen U-100] 52 unit SQ QAM 03/14/19 Acetaminophen [Tylenol 325 mg Tablet] 650 mg PO Q6HP PRN tablet 03/23/19 History of Present Illness History of Present Illness: ONDINA ENRIQUEZ is a 73 year old female, She came to the emergency room for evaluation of chest pain, she has underlining chronic Respiratory failure on positive pressure ventilation BiPAP. Hospital Course Hospital Course: Patient was admitted for the management of chest pain with a background of chronic respiratory failure. She was seen by pulmonary, a different noninvasive positive pressure ventilation device was recommended she was prescribed Trilogy.3 sets of cardiac enzymes negative for acute ischemia, she was seen by the supervisor wrapping room, Dr. Clancy, he felt there was no need for her to have nuclear stress test at this time this could be arranged outpatient, she has multiple risk factors for ischemic heart disease Physical Exam Vital Signs: Temp Pulse Resp BP Pulse Ox 97.9 F 70 16 169/61 H 98 03/23/19 16:33 03/23/19 16:33 03/23/19 16:33 03/23/19 16:33 03/23/19 16:33 Pulse Oximeter Continuous Start: 03/15/19 16:11 Freq: RTQ4 Status: Active Protocol: Document 03/23/19 15:56 [facility] (Rec: 03/23/19 17:13 [facility] [id number]) Pulse Oximetry Assessment Oxygen Saturation (92-100) 100 Oxygen Flow Rate (L/min) 2 Oxygen Delivery Method Nasal Cannula Fraction of Inspired Oxygen (FIO2) 28 Equipment Usage Equipment in Use Continuous SpO2 Machine # 1 Intake & Output 03/22/19 03/23/19 03/24/19 06:59 06:59 06:59 Intake Total 720 1095 1070 Output Total 106 037 5519 Balance 170 220 -30 Weight 152.7 kg 149.3 kg General appearance: PRESENT: no acute distress Eye exam: PRESENT: PERRLA Respiratory exam: PRESENT: clear to auscultation carter Cardiovascular exam: PRESENT: +S1, +S2 GI/Abdominal exam: PRESENT: soft Neurological exam: PRESENT: alert Results Laboratory Results: 03/20/19 12:41 03/21/19 06:22 03/14/19 03/14/19 03/14/19 16:15 16:15 18:25 Creatine Kinase 793 H 774 H CK-MB (CK-2) 2.07 Troponin I < 0.012 NT-Pro-B Natriuret Pep 4330 H 03/14/19 03/14/19 03/14/19 18:25 23:30 23:30 Creatine Kinase 763 H CK-MB (CK-2) 1.98 2.24 Troponin I < 0.012 < 0.012 NT-Pro-B Natriuret Pep 03/15/19 03/15/19 05:36 05:36 Creatine Kinase 807 H CK-MB (CK-2) 1.95 Troponin I < 0.012 NT-Pro-B Natriuret Pep 3740 H Impressions: Lung Scan-VQ NM 03/14/19 00:00 IMPRESSION: No evidence of pulmonary embolism. Chest X-Ray 03/14/19 14:07 IMPRESSION: NO ACUTE RADIOGRAPHIC FINDING IN THE CHEST. Chest CT 03/14/19 15:04 IMPRESSION: Minimal right pleural effusion. Mild dependent atelectasis in the lower lobes. No pneumonia or other acute finding. Qualifiers - * PATIENT BEING DISCHARGED WITH ANY OF THE FOLLOWING DIAGNOSIS: No VTE patient discharged on overlapping Therapy?: No Reason(s) for not prescribing Overlap Therapy:: Not indicated Stroke Pt being discharged on Anti-thrombolytic therapy?: No Reason(s) for not prescribing Anti-thrombolytic therapy:: Not indicated Stroke Pt being discharged on Anti-coagulation therapy?: No Reason(s) for not prescribing Anti-coagulation therapy:: Not indicated Stroke Pt being discharged on Statins?: No Reason(s) for not prescribing Statins therapy:: Not indicated GA Pt being discharged on Aspirin therapy?: No Reason(s) for not prescribing Aspirin therapy:: Not indicated GA Pt being discharged on Statins?: No Reason(s) for not prescribing Statin therapy:: Not indicated GA Pt discharged ACEI/ARBS?: No Reason(s) for not prescribing ACEI/ARBS:: Not indicated Acute Heart Failure - Is this a Heart Failure Patient?: No 3. Anticoagulant therapy for permanect/persistent/paraoxysmal Afib or Aflutter: Yes
[2019-03-23] MEDS: ATORVASTATIN CALCIUM 20 MG TABLET PO SCH (21:24)
[2019-03-23] MEDS: MONTELUKAST SODIUM 10 MG TABLET PO SCH (21:31)
[2019-03-23] MEDS: ACETAMINOPHEN 325 MG TABLET PO PRN (23:25)
[2019-03-24] MEDS: LEVOTHYROXINE SODIUM 0.025 MG TABLET PO SCH (05:55)
[2019-03-24] MEDS: LEVOTHYROXINE SODIUM 0.15 MG TABLET PO SCH (05:55)
[2019-03-24] MEDS: HEPARIN SOD (PORCINE) 5,000 UNIT/ML 1 ML VIAL SUBCUT SCH (05:55)
[2019-03-24] MEDS: HYDRALAZINE HCL 25 MG TABLET PO SCH (05:55)
[2019-03-24] MEDS: INSULIN LISPRO 100 UNIT/ML 3 ML VIAL SUBCUT SCH ×2 (07:45→11:59)
[2019-03-24] MEDS: IPRATROPIUM/ALBUTEROL 0.5-2.5 MG/3 ML AMPUL NEB SCH ×2 (07:46→12:28)
[2019-03-24] MEDS: SITAGLIPTIN PHOSPHATE 50 MG TABLET PO SCH (10:16)
[2019-03-24] MEDS: AMLODIPINE BESYLATE 5 MG TABLET PO SCH (10:16)
[2019-03-24] MEDS: PREGABALIN 75 MG CAPSULE PO SCH (10:17)
[2019-03-24] MEDS: LOSARTAN POTASSIUM 50 MG TABLET PO SCH (10:17)
[2019-03-24] MEDS: DULOXETINE HCL 30 MG CAPSULE.DR PO SCH (10:17)
[2019-03-24] MEDS: FAMOTIDINE 20 MG TABLET PO SCH (10:17)
[2019-03-24] MEDS: FUROSEMIDE 20 MG TABLET PO SCH (10:17)
[2019-03-24] MEDS: METOPROLOL TARTRATE 50 MG TABLET PO SCH (10:17)
[2019-03-24] MEDS: FLUTICASONE/VILANTEROL 200-25 MCG/DOSE IH SCH (10:19)
[2019-03-24] MEDS ORDERED: HYDRALAZINE HCL 50 MG TABLET PO SCH (14:00)
[2019-03-24 14:18] VITALS: BP 145/98
== END 2019-03-24 14:45 | disposition home or self-care (01) | DRG 302 ==
LOC: ER 14:03 → EH 17:42 → 3W 19:59
PROVIDERS: ADMIT Internal Medicine; ATTEND Family Medicine
DX: I25.9 Chronic ischemic heart disease, unspecified (principal); J96.02 Acute respiratory failure with hypercapnia; J96.01 Acute respiratory failure with hypoxia; I13.0 Hypertensive heart and chronic kidney disease with heart failure and stage 1 through stage 4 chronic kidney disease, or unspecified chronic kidney disease; N18.4 Chronic kidney disease, stage 4 (severe); J45.41 Moderate persistent asthma with (acute) exacerbation; I50.9 Heart failure, unspecified; E11.22 Type 2 diabetes mellitus with diabetic chronic kidney disease; J44.9 Chronic obstructive pulmonary disease, unspecified; E78.00 Pure hypercholesterolemia, unspecified; E03.9 Hypothyroidism, unspecified; K21.9 Gastro-esophageal reflux disease without esophagitis; E66.01 Morbid (severe) obesity due to excess calories; Z60.2 Problems related to living alone
CPT/HCPCS: 36415; 36600; 71045; 71250; 78582; 80048; 80053; 82533; 82550; 82553; 82803; 82962; 83605; 83690; 83735; 83880; 84439; 84443; 84481; 84484; 85025; 87040; 93005; 93010; 94640; 94660; 94762; 96365; 99285; A9540; A9567; J0696; J1644; J1815; J3490; J7620; Q9969